=== PATIENT | male | born 1955 | race Caucasian/White ===

== ENCOUNTER 2016-08-22 19:32 | Inpatient (IN) | payer MEDICAID ==
[2016-08-22 19:32] VITALS: PULSE 140; BMI 26.8
[2016-08-22 20:42] LABS: BASO % 0.6 % (0.0-2.0); EOS # 0.1 K/uL (0.0-0.7); EOS % 1.7 % (0.0-4.0); HEMATOCRIT 31.4 % (35.0-51.0); LYMPH # 0.4 K/uL (1.0-4.3); LYMPH % 13.8 % (20.0-40.0); MEAN CELL VOLUME 92.7 fL (80.0-94.0); MEAN CORPUSCULAR HEMOGLOBIN 30.2 pg (27.0-31.0); MEAN CORPUSCULAR HGB CONC 32.6 g/dL (33.0-37.0); MEAN PLATELET VOLUME 9.1 fL (7.2-11.7); MONO # 0.4 K/uL (0.0-0.8); MONO % 13.3 % (0.0-10.0); RED CELL DISTRIBUTION WIDTH 17.2 % (11.5-14.5)
--- NOTE | 2016-08-22 20:47 | C.PDOC ---
History Of Present Illness 61 year old male presents to the ED with complaints of vomiting and feeling weak for the past few days. Patient notes he missed dialysis today and denies diarrhea, abdominal pain, or any other complaints at this time. Chief Complaint (Nursing): GI Problem History Per: Patient History/Exam Limitations: no limitations Onset/Duration Of Symptoms: Days Current Symptoms Are (Timing): Still Present Severity: Mild Past Medical History Reviewed: Historical Data, Nursing Documentation, Vital Signs Vital Signs: Last Vital Signs Temp 99.4 F 08/22/16 19:37 Pulse 97 H 08/22/16 19:37 Resp 20 08/22/16 19:37 BP 165/84 H 08/22/16 19:37 Pulse Ox 100 08/22/16 20:49 - Medical History PMH: Anemia, COPD, HTN, Hypercholesterolemia, Hyperlipidemia, Kidney Stones ( 1998), End Stage Renal Disease Surgical History: - [facility] Procedures DIALYSIS ARTERIOVENOSTOM (01/22/15) HEMODIALYSIS (01/30/15) INSERTION OF INFUSION DEV INTO SUP VENA CAVA, PERC APPROACH (11/12/15) PACKED CELL TRANSFUSION (11/05/14) PERFORMANCE OF URINARY FILTRATION, MULTIPLE (11/12/15) PERFORMANCE OF URINARY FILTRATION, SINGLE (02/29/16) ULTRASONOGRAPHY OF SUPERIOR VENA CAVA, GUIDANCE (11/12/15) VENOUS CATHETERIZATION FOR RENAL DIALYSIS (11/05/14) Family History: States: Unknown Family Hx - Social History Hx Tobacco Use: No (Quit years ago) Hx Alcohol Use: No Hx Substance Use: No - Immunization History Hx Tetanus Toxoid Vaccination: Yes Hx Influenza Vaccination: Yes Hx Pneumococcal Vaccination: Yes Review Of Systems Except As Marked, All Systems Reviewed And Found Negative. Constitutional: Negative for: Fever, Chills Cardiovascular: Negative for: Chest Pain Respiratory: Negative for: Cough, Shortness of Breath Gastrointestinal: Positive for: Vomiting. Negative for: Abdominal Pain, Diarrhea Physical Exam - Physical Exam Appears: Non-toxic, No Acute Distress Skin: Normal Color, Warm, Dry Head: Atraumatic, Normacephalic Eye(s): bilateral: Normal Inspection Oral Mucosa: Moist Chest: Symmetrical Cardiovascular: Rhythm Regular, No Murmur Respiratory: Normal Breath Sounds, No Accessory Muscle Use, No Rales, No Rhonchi , No Wheezing Gastrointestinal/Abdominal: Soft, No Tenderness, No Distention, No Guarding, No Rebound Extremity: Normal ROM, No Deformity Neurological/Psych: Oriented x3, Normal Speech, Normal Cognition, Other (No focal deficits) ED Course And Treatment - Laboratory Results Result Diagrams: 08/22/16 20:39 08/22/16 20:39 ECG: Interpreted By Me, Viewed By Me ECG Rhythm: Sinus Rhythm ECG Interpretation: No Acute Changes Interpretation Of ECG: NSR, possible LVH by voltage criteria Rate From EC O2 Sat by Pulse Oximetry: 100 (Room air) Pulse Ox Interpretation: Normal - Radiology CXR: Interpreted by Me CXR Interpretation: Yes: No Acute Disease. No: Infiltrates, Cardiomegaly Progress Note: EKG, CXR, and Blood work ordered and reviewed. Disposition Discussed With Dr.: Broderick Solis Doctor Will See Patient In The: Hospital Counseled Patient/Family Regarding: Diagnosis - Disposition Disposition: HOSPITALIZED Disposition Time: 21:22 Condition: STABLE Instructions: Weakness (ED) - POA Present On Arrival: None - Clinical Impression Clinical Impression: End-stage renal disease on hemodialysis, Weakness - Scribe Statement The provider has reviewed the documentation as recorded by the Scribe Judit Dominguez. Provider Attestation: All medical record entries made by the Scribe were at my direction and personally dictated by me. I have reviewed the chart and agree that the record accurately reflects my personal performance of the history, physical exam, medical decision making, and the department course for this patient. I have also personally directed, reviewed, and agree with the discharge instructions and disposition.
[2016-08-22 20:52] LABS: POTASSIUM 4.3 mmol/L (3.6-5.2)
[2016-08-22 20:54] LABS: ALB/GLOB RATIO 1.6 (1.0-2.1); BILIRUBIN,TOTAL 0.8 mg/dL (0.2-1.3); TOTAL PROTEIN 6.4 g/dL (6.3-8.3)
[2016-08-22 20:55] LABS: CALCIUM 8.7 mg/dl (8.6-10.4)
[2016-08-22 21:06] LABS: TROPONIN I 0.104 ng/mL (0.00-0.120)
[2016-08-22] MEDS ORDERED: cefTRIAXone IV 1 gm in Dextros 50 ML IVPB ONE (22:44)
--- NOTE | 2016-08-22 23:18 | CP.PCM.HP ---
<Mile Solorio - Last Filed: 08/22/16 23:42> History of Present Illness - History of Present Illness History of Present Illness: CC: "cough, weakness, dizziness" HPI: Pt is a 61M with medical history of ESRD on hemodialysis MWF, COPD, HTN, atrial fibrillation, HLD, BPH, flomax, pancytopenia who presented to the ED with persistent cough, dizziness and weakness for 3 days. He notes cough is worse at night and productive of yellow phlegm. He denies sick contacts and states he had pneumonia and flu vaccine. Patient started taking cough syrup and Azithromycin 500 mg po today prescribed by his primary care physician. He also states he had chills yesterday. Patient admits to mild shortness of breath but denies chest pain. 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 He denies nausea, vomiting, abdominal pain, diarrhea but admits to chronic constipation. PMD: Dr. Shashank Meraz PMH: as above Medications: Metoprolol 50 mg po BID, Atorvastatin 10 mg po daily, Cardizem Cd 240 mg po daily, ASA 325 mg po daily, Spiriva, Ventolin, Flomax 0.4 mg po daily , Colace 100 mg po TID Family History: mother - HTN, father - HTN Surgical Hx: kidney stone removal Social: former smoker of 27 years. Denies alcohol and illicit drug use. Present on Admission - Present on Admission Any Indicators Present on Admission: No History of DVT/PE: No History of Uncontrolled Diabetes: No Urinary Catheter: No Decubitus Ulcer Present: No Review of Systems - Constitutional Constitutional: Chills. absent: Fever - EENT Eyes: absent: Change in Vision Nose/Mouth/Throat: absent: Nasal Congestion, Nasal Discharge - Cardiovascular Cardiovascular: Dyspnea. absent: Chest Pain - Respiratory Respiratory: Cough, Dyspnea, Change in Mucous Color. absent: Wheezing - Gastrointestinal Gastrointestinal: Constipation. absent: Abdominal Pain, Diarrhea - Genitourinary Genitourinary: absent: Change in Urinary Stream - Integumentary Integumentary: absent: Changing Lesions, New Lesions - Neurological Neurological: Dizziness, Weakness. absent: Headaches Past Patient History - Infectious Disease Hx of Infectious Diseases: None - Past Medical History & Family History Past Medical History?: Yes - Past Social History Smoking Status: Former Smoker - CARDIAC Hx Hypercholesterolemia: Yes Hx Hypertension: Yes - PULMONARY Hx Chronic Obstructive Pulmonary Disease (COPD): Yes - NEUROLOGICAL Hx Neurological Disorder: No - HEENT Hx HEENT Problems: No Other/Comment: WEARS GLASSES - RENAL Hx Kidney Stones: Yes (1998) - ENDOCRINE/METABOLIC Hx Endocrine Disorders: No - HEMATOLOGICAL/ONCOLOGICAL Hx Anemia: Yes - INTEGUMENTARY Hx Dermatological Problems: No - MUSCULOSKELETAL/RHEUMATOLOGICAL Hx Musculoskeletal Disorders: No Hx Falls: No - GASTROINTESTINAL Hx Gastrointestinal Disorders: No - GENITOURINARY/GYNECOLOGICAL Hx Genitourinary Disorders: Yes Hx Prostate Problems: Yes - PSYCHIATRIC Hx Substance Use: No - SURGICAL HISTORY Hx Surgeries: Yes Hx Arteriovenous Shunt: Yes (right upper arm) Hx Vascular Access Device: Yes (right upper arm) Other/Comment: TURP - ANESTHESIA Hx Anesthesia: Yes Hx Anesthesia Reactions: No Hx Malignant Hyperthermia: No Meds Allergies/Adverse Reactions: Allergies Allergy/AdvReac Type Severity Reaction Status Date / Time No Known Allergies Allergy Verified 08/22/16 19:41 Physical Exam - Constitutional Appears: Non-toxic, No Acute Distress - Head Exam Head Exam: ATRAUMATIC, NORMAL INSPECTION, NORMOCEPHALIC - Eye Exam Eye Exam: EOMI, Normal appearance, PERRL - ENT Exam ENT Exam: Mucous Membranes Moist - Neck Exam Neck exam: Positive for: Full Rom, Normal Inspection - Respiratory Exam Respiratory Exam: Wheezes, NORMAL BREATHING PATTERN. absent: Rales, Rhonchi Additional comments: mild expiratory upper airway wheezes to auscultation - Cardiovascular Exam Cardiovascular Exam: +S1, +S2. absent: Tachycardia - GI/Abdominal Exam GI & Abdominal Exam: Normal Bowel Sounds, Soft - Extremities Exam Extremities exam: Positive for: normal inspection. Negative for: pedal edema, tenderness - Back Exam Back exam: NORMAL INSPECTION - Neurological Exam Neurological exam: Alert, CN II-XII Intact, Oriented x3 - Psychiatric Exam Psychiatric exam: Normal Affect, Normal Mood Results - Vital Signs Recent Vital Signs: Last Vital Signs Temp 98.5 F 08/22/16 22:17 Pulse 78 08/22/16 22:17 Resp 18 08/22/16 22:17 BP 148/75 08/22/16 22:17 Pulse Ox 98 08/22/16 22:17 - Labs Result Diagrams: 08/22/16 20:39 08/22/16 20:39 Assessment & Plan - Assessment and Plan (Free Text) Assessment: 1. Shortness of Breath likely secondary to COPD exacerbation Duoneb q6h PRN SOB Azithromycin 500 mg IVPB daily Rocephin 1 gm IVP stat dose given Robitussin DM 5 ml po q4H PRN cough CXR: no acute disease, cardiomegaly D-dimer 478 Observe overnight, VQ scan tomorrow to evaluate for PE Anticoagulation contraindicated due to pancytopenia f/u Echocardiogram Wells' Criteria -2 : low risk for DVT, unlikely 2. ESRD Potassium 4.3 BUN/CR 74/10.4 HD MWF - missed dialysis today For dialysis tomorrow Consult nephrology, Dr. Crawford, help appreciated 3. History of Atrial fibrillation Continued on home medications ASA 325 mg po daily and Diltiazem CD 240 mg po daily EKG: NSR Anticoagulation contraindicated due to pancytopenia - platelets of 37 Cardiology, Dr. Odessa Hawkins, consulted. Help appreciated. 4. Hypertension Continued on home medication Metoprolol 50 mg po BID Monitor 5. Hyperlipidemia Crestor 5 mg po HS 6. Pancytopenia WBC 3.0, platelets 37 Noted on previous admission 7. BPH Continue home medication flomax 0.4 mg po daily 8. Constipation Colace 100 mg po TID Miralax daily 9. Prophylaxis SCD Pepcid 20 mg po daily - Date & Time Date: 08/23/16 Time: 00:15 <Broderick Solis - Last Filed: 08/23/16 06:27> Results - Vital Signs Recent Vital Signs: Last Vital Signs Temp 97.3 F L 08/23/16 00:01 Pulse 88 08/23/16 00:01 Resp 20 08/23/16 00:01 BP 159/78 H 08/23/16 00:01 Pulse Ox 95 08/23/16 00:01 - Labs Result Diagrams: 08/22/16 20:39 08/22/16 20:39 Assessment & Plan - Date & Time Date: 08/23/16 (I have seen and examined the patient. I agree with the findings and plan of care as documented by Dr. Solorio. Patient with ESRD on hemodialysis. Patient missed dialysis due to feeling weak and unwell. Consult Nephro to set up dialysis in AM. Also with thrombocytopenia and history of atrial fibrillation. Only on Aspirin. Positive D dimer ordered by ED. Unable to obtrain CT angio due to renal function. Denies SOB and no tachycardia. Check VQ scan and 2D Echo. Monitor for acute changes.) Time: 06:24 Attending/Attestation - Attestation I have personally seen and examined this patient.: Yes I have fully participated in the care of the patient.: Yes I have reviewed all pertinent clinical information: Yes
[2016-08-23] MEDS: Albuterol-Ipratrop 3 mg / 0.5 (3 ml) UD INH PRN ×3 (00:51→19:54)
[2016-08-23] MEDS: guaiFENesin DM 100 mg-10 mg/5 ml UD PO PRN ×4 (01:30→18:50)
[2016-08-23 07:15] LABS: BASO % 0.4 % (0.0-2.0); CHLORIDE 92 mmol/L (98-107); EOS # 0.1 K/uL (0.0-0.7); EOS % 2.4 % (0.0-4.0); HEMATOCRIT 31.1 % (35.0-51.0); LYMPH # 0.4 K/uL (1.0-4.3); LYMPH % 17.4 % (20.0-40.0); MEAN CELL VOLUME 92.6 fL (80.0-94.0); MEAN CORPUSCULAR HGB CONC 33.4 g/dL (33.0-37.0); MEAN PLATELET VOLUME 10.9 fL (7.2-11.7); MONO # 0.4 K/uL (0.0-0.8); MONO % 15.6 % (0.0-10.0); NRBC % 0.1 % (0.0-2.0); POTASSIUM 4.2 mmol/L (3.6-5.2); RED CELL DISTRIBUTION WIDTH 17.4 % (11.5-14.5); SODIUM 133 mmol/L (132-148); WHITE BLOOD COUNT 2.5 K/uL (4.8-10.8)
[2016-08-23 07:17] LABS: ALB/GLOB RATIO 1.6 (1.0-2.1); ALKALINE PHOSPHATASE 42 U/L (38-126); ALT/SGPT 35 U/L (21-72); AST/SGOT 32 U/L (17-59); BILIRUBIN,TOTAL 0.8 mg/dL (0.2-1.3); BLOOD UREA NITROGEN 81 mg/dL (9-20); CARBON DIOXIDE 23 mmol/L (22-30); CHOLESTEROL 78 mg/dL (0-199); GFR AFRICAN-AMERICAN 5; GLUCOSE,RANDOM 99 mg/dL (75-110); PHOSPHOROUS 5.1 mg/dL (2.5-4.5); TOTAL PROTEIN 6.1 g/dL (6.3-8.3)
[2016-08-23 07:18] LABS: CALCIUM 8.1 mg/dl (8.6-10.4); MAGNESIUM 2.4 mg/dL (1.6-2.3)
[2016-08-23 07:35] LABS: T4 6.33 ug/dL (5.5-11.0)
[2016-08-23 07:48] LABS: THYROID STIMULATING HORMONE 1.13 mIU/L (0.46-4.68)
--- NOTE | 2016-08-23 08:12 | RAD ---
PROCEDURE: CHEST RADIOGRAPH, 1 VIEW HISTORY: SOB COMPARISON: 02/29/2016 FINDINGS: LUNGS: Linear atelectasis in the right midlung zone. 2 small rounded nodular densities seen within the right mid lung zone may represent nodules or granulomas. Upper lobe granulomatous changes. Bilateral paratracheal prominence which may represent productive change at the ends of the 1st ribs. Mild bilateral hilar prominence. Mild venous congestion. PLEURA: No pneumothorax or pleural fluid seen. CARDIOVASCULAR: Normal. OSSEOUS STRUCTURES: No significant abnormalities. VISUALIZED UPPER ABDOMEN: Normal. OTHER FINDINGS: None. IMPRESSION: Linear atelectasis in the right midlung zone. 2 small rounded nodular densities seen within the right mid lung zone may represent nodules or granulomas. Upper lobe granulomatous changes. Bilateral paratracheal prominence which may represent productive change at the ends of the 1st ribs. Mild bilateral hilar prominence. Mild venous congestion.
[2016-08-23] MEDS: diltiaZEM 240 mg/24 Hours CD Cap PO SCH (09:33)
[2016-08-23] MEDS: Azithromycin 500 MG in Sodium Chloride 0.9% 250 ML IVPB SCH (09:34)
[2016-08-23] MEDS: POLYETHYLENE GLYCOL 3350 17 GM/Dose PACKET PO SCH (09:34)
--- NOTE | 2016-08-23 10:40 | NM ---
COMPARISON: August 22, 2016. Chest 11/13/2015 CT angiogram Relevant surgical history: Right upper lobectomy. TECHNIQUE: 12.6 mCi technetium 99-m Xe-133 Gas. 4.0 mCI technetium 99-m MAA administered intravenously. FINDINGS: VENTILATION COMPONENT: Asymmetrical ventilation, diminished ventilation of the left lung compared to the right. There is air trapping in the right upper lobe on the washout phase consistent with postoperative change. PERFUSION COMPONENT: Non geographic diminished perfusion along the major fissure on the right and subsegmental perfusion defect tracking along the major fissure/ site of pleural thickening and postoperative change from prior CT scan. IMPRESSION: Low probability ventilation perfusion scan for pulmonary embolism.
--- NOTE | 2016-08-23 11:57 | CP.PCM.PN ---
<ThaniaRemberto - Last Filed: 08/23/16 11:58> Subjective - Date & Time of Evaluation Date of Evaluation: 08/23/16 Time of Evaluation: 11:57 - Subjective Subjective: PGY-1 Medicine Progress Note for Dr. Olsen Patient seen and examined at bedside. No acute event overnight. Patient complaining of cough today. He stated weakness and dizziness has improved. Patient missed dialysis yesterday so he will go this morning. Denied fever/ chills, cp, sob, palpitations, abd pain, n/v/d, constipation. Objective - Vital Signs/Intake and Output Vital Signs (last 24 hours): Temp Pulse Resp BP Pulse Ox 98.1 F 87 22 143/75 95 08/23/16 09:25 08/23/16 09:25 08/23/16 09:25 08/23/16 11:25 08/23/16 09:25 Intake and Output: 08/23/16 08/23/16 06:59 18:59 Intake Total 300 Balance 300 - Medications Medications: Current Medications Albuterol/Ipratropium (Duoneb 3 Mg/0.5 Mg (3 Ml) Ud) 3 ml INH RQ6 PRN PRN Reason: Shortness of Breath Last Admin: 08/23/16 07:53 Dose: 3 ml Aspirin (Aspirin) 325 mg PO DAILY [facility] Last Admin: 08/23/16 09:33 Dose: Not Given Cinacalcet (Sensipar) 30 mg PO DAILY [facility] Last Admin: 08/23/16 09:34 Dose: Not Given Diltiazem HCl (Cardizem Cd) 240 mg PO DAILY [facility] Last Admin: 08/23/16 09:33 Dose: Not Given Docusate Sodium (Colace) 100 mg PO TID [facility] Last Admin: 08/23/16 09:33 Dose: Not Given Famotidine (Pepcid) 20 mg PO DAILY [facility] Last Admin: 08/23/16 09:34 Dose: Not Given Guaifenesin/Dextromethorphan (Robitussin Dm) 5 ml PO Q4H PRN PRN Reason: Cough Last Admin: 08/23/16 09:10 Dose: 5 ml Azithromycin 500 mg/ Sodium (Chloride) 250 mls @ 250 mls/hr IVPB DAILY [facility] Last Admin: 08/23/16 09:34 Dose: Not Given Metoprolol Tartrate (Lopressor) 50 mg PO BID [facility] Last Admin: 08/23/16 09:33 Dose: Not Given Polyethylene Glycol (Miralax) 17 gm PO DAILY [facility] Last Admin: 08/23/16 09:34 Dose: Not Given Rosuvastatin Calcium (Crestor) 5 mg PO HS [facility] Tamsulosin HCl (Flomax) 0.4 mg PO DAILY [facility] Last Admin: 08/23/16 09:33 Dose: Not Given - Labs Labs: 08/23/16 06:59 08/23/16 06:59 - Constitutional Appears: No Acute Distress - Head Exam Head Exam: ATRAUMATIC, NORMOCEPHALIC - Eye Exam Eye Exam: EOMI, Normal appearance Pupil Exam: PERRL - ENT Exam ENT Exam: Mucous Membranes Moist - Respiratory Exam Respiratory Exam: Wheezes, NORMAL BREATHING PATTERN - Cardiovascular Exam Cardiovascular Exam: REGULAR RHYTHM, +S1, +S2 - GI/Abdominal Exam GI & Abdominal Exam: Soft, Normal Bowel Sounds. absent: Distended, Guarding, Rigid, Tenderness - Extremities Exam Extremities Exam: Normal Capillary Refill - Back Exam Back Exam: absent: CVA tenderness (L), CVA tenderness (R) - Neurological Exam Neurological Exam: Alert, Awake, Oriented x3 - Psychiatric Exam Psychiatric exam: Normal Affect, Normal Mood - Skin Skin Exam: Dry, Intact, Normal Color, Warm Assessment and Plan - Assessment and Plan (Free Text) Plan: 1. Shortness of Breath likely secondary to COPD exacerbation Duoneb q6h PRN SOB Azithromycin 500 mg IVPB daily Rocephin 1 gm IVP stat dose given Robitussin DM 5 ml po q4H PRN cough CXR: no acute disease, cardiomegaly D-dimer 478 VQ scan low probability of PE Anticoagulation contraindicated due to pancytopenia f/u Echocardiogram Wells' Criteria -2 : low risk for DVT, unlikely 2. ESRD Potassium 4.2 BUN/CR 81/11.7 HD MWF - missed yesterday, dialysis For dialysis tomorrow Consult nephrology, Dr. Crawford, help appreciated 3. History of Atrial fibrillation Continued on home medications ASA 325 mg po daily and Diltiazem CD 240 mg po daily EKG: NSR Anticoagulation contraindicated due to pancytopenia Cardiology, Dr. Odessa Hawkins, consulted. Help appreciated. 4. Hypertension Continued on home medication Metoprolol 50 mg po BID Monitor 5. Hyperlipidemia Crestor 5 mg po HS 6. Pancytopenia WBC 2.5, platelets 43 Noted on previous admission 7. BPH Continue home medication flomax 0.4 mg po daily 8. Constipation Colace 100 mg po TID Miralax daily 9. Prophylaxis SCD Pepcid 20 mg po daily <Bert Olsen H - Last Filed: 08/23/16 15:52> Objective - Vital Signs/Intake and Output Vital Signs (last 24 hours): Temp Pulse Resp BP Pulse Ox 97.4 F L 73 22 143/75 100 08/23/16 13:10 08/23/16 13:10 08/23/16 13:10 08/23/16 15:12 08/23/16 13:10 Intake and Output: 08/23/16 08/23/16 06:59 18:59 Intake Total 500 Balance 500 - Medications Medications: Current Medications Albuterol/Ipratropium (Duoneb 3 Mg/0.5 Mg (3 Ml) Ud) 3 ml INH RQ6 PRN PRN Reason: Shortness of Breath Last Admin: 08/23/16 07:53 Dose: 3 ml Aspirin (Aspirin) 325 mg PO DAILY [facility] Last Admin: 08/23/16 09:33 Dose: Not Given Cinacalcet (Sensipar) 30 mg PO DAILY [facility] Last Admin: 08/23/16 09:34 Dose: Not Given Diltiazem HCl (Cardizem Cd) 240 mg PO DAILY [facility] Last Admin: 08/23/16 09:33 Dose: Not Given Docusate Sodium (Colace) 100 mg PO TID [facility] Last Admin: 08/23/16 14:47 Dose: 100 mg Famotidine (Pepcid) 20 mg PO DAILY [facility] Last Admin: 08/23/16 09:34 Dose: Not Given Guaifenesin/Dextromethorphan (Robitussin Dm) 5 ml PO Q4H PRN PRN Reason: Cough Last Admin: 08/23/16 14:48 Dose: 5 ml Azithromycin 500 mg/ Sodium (Chloride) 250 mls @ 250 mls/hr IVPB DAILY [facility] Last Admin: 08/23/16 09:34 Dose: Not Given Metoprolol Tartrate (Lopressor) 50 mg PO BID [facility] Last Admin: 08/23/16 09:33 Dose: Not Given Polyethylene Glycol (Miralax) 17 gm PO DAILY [facility] Last Admin: 08/23/16 09:34 Dose: Not Given Rosuvastatin Calcium (Crestor) 5 mg PO HS [facility] Tamsulosin HCl (Flomax) 0.4 mg PO DAILY [facility] Last Admin: 08/23/16 09:33 Dose: Not Given - Labs Labs: 08/23/16 06:59 08/23/16 06:59 Attending/Attestation - Attestation I have personally seen and examined this patient.: Yes I have fully participated in the care of the patient.: Yes I have reviewed all pertinent clinical information, including history, physical exam and plan: Yes Notes (Text): 08/23/16 15:50 Medical Attending: Patient was seen and examined by me. He was ealier reporting coughing and shortness of breath. This maybe a combination of COPD as well as the patient needing HD. Will continue to monitor the patient, and for now continue with the IV abx rocpephin and IV azithromycin thank you Bert Olsen 08/23/16 15:52
--- NOTE | 2016-08-23 16:45 | CON ---
DATE: 08/23/2016 CARDIOLOGY CONSULTATION HISTORY OF PRESENT ILLNESS: This is a 61-year-old ____ male, came to the Emergency Room with history of generalized fatigue, weakness, and cough. The patient denies having any fever. The patient comp lained of dizziness. Denies having any chest pain. The patient has mild shortness of breath. The p atient has cold symptoms. No history of nausea, vomiting, or abdominal pain. CENTRAL NERVOUS SYSTEM: No focal neurological complaints offered. MEDICATIONS: The patient was seen by PMD in the office and was started on azithromycin. The patient missed dialysis, so came to the Emergency Room. REVIEW OF SYSTEMS: CARDIOVASCULAR: Negative for chest pain. RESPIRATORY: Positive for shortness of breath and cough. GASTROINTESTINAL: Negative for nausea, vomiting, abdominal pain. CENTRAL NERVOUS SYSTEM: Dizziness. No focal neurological complaints. No fever. GENITOURINARY: No urinary complaints. PAST HISTORY: History of COPD, hypertension, atrial fibrillation, elevated cholesterol, BPH, pancyto penia, chronic renal failure on hemodialysis. FAMILY HISTORY: Nothing particular. SOCIAL HISTORY: Nonsmoker, nonalcoholic, no IVDA. ALLERGIES: No known allergy. MEDICATIONS: The patient's medications are metoprolol, atorvastatin, aspirin, Cardizem, Spiriva, Pete tolin, Flomax, Colace. PHYSICAL EXAMINATION: GENERAL: This is a 61-year-old male, awake, alert, oriented, comfortable. VITAL SIGNS: Temperature 98.6, pulse 78 per minute, respirations 18, blood pressure 148/75 mmHg. Pu lse ox is 98% at room air. HEENT: Normal. NECK: JVP is flat. Carotids - no bruit. LUNGS: No rales. Wheezing is present. No rhonchi present. ABDOMEN: Soft, nontender. CENTRAL NERVOUS SYSTEM: No focal neurological deficit. LABORATORY DATA: On admission, white cell count is reduced. Thrombocytopenia present. Elevated BUN and creatinine. Blood sugar is 86. Chest x-ray is within normal limits. EKG is normal sinus rhythm. D-dimer is elevated. IMPRESSION: Shortness of breath with cough and fatigue. Rule out flu symptoms. End-stage renal dis ease. History of atrial fibrillation, hypertension, hyperlipidemia, pancytopenia, benign prostatic h ypertrophy, constipation. SUGGESTIONS: I agree with present management. We will continue all the medications. We will review echocardiogram. The patient's troponin is negative. No further medication advised. We will follow . Lizbeth Hawkins MD cc: [id number] TT: 08/23/2016 16:44:38 Confirmation # [id number] Dictation # [id number]
[2016-08-24] MEDS: guaiFENesin DM 100 mg-10 mg/5 ml UD PO PRN (03:07)
[2016-08-24 08:10] LABS: BASO % 0.6 % (0.0-2.0); HEMATOCRIT 33.1 % (35.0-51.0); LYMPH # 0.5 K/uL (1.0-4.3); MEAN CELL VOLUME 91.8 fL (80.0-94.0); MEAN CORPUSCULAR HEMOGLOBIN 30.7 pg (27.0-31.0); MEAN CORPUSCULAR HGB CONC 33.5 g/dL (33.0-37.0); MEAN PLATELET VOLUME 9.6 fL (7.2-11.7); MONO # 0.4 K/uL (0.0-0.8); MONO % 15.7 % (0.0-10.0); RED CELL DISTRIBUTION WIDTH 17.2 % (11.5-14.5); WHITE BLOOD COUNT 2.3 K/uL (4.8-10.8)
--- NOTE | 2016-08-24 08:13 | CP.PCM.CON ---
History of Present Illness - History of Present Illness History of Present Illness: HPI: Pt is a 61M with medical history of ESRD on hemodialysis MWF, COPD, HTN, atrial fibrillation, HLD, BPH, flomax, pancytopenia who presented to the ED with persistent cough, dizziness and weakness for 3 days. He notes cough is worse at night and productive of yellow phlegm. He denies sick contacts and states he had pneumonia and flu vaccine. Patient started taking cough syrup and Azithromycin 500 mg po today prescribed by his primary care physician. He also states he had chills yesterday. Patient admits to mild shortness of breath but denies chest pain. Patient missed dialysis today and states he has not followed up with his director of midwifery/staff midwife in some time. He denies nausea, vomiting, abdominal pain, diarrhea but admits to chronic constipation. Pt has been on HD for about a year and a half. He generally misses at least one treatment a week, as he feels tired with HD. He uses a left KIMBERLY for treatment. Pt also feels lightheaded on standing Pt received HD yesterday with 3.5 kg uf. Pt asked about different modalities of dialysis and transplantation. Review of Systems - Constitutional Constitutional: Fatigue. absent: Fever - EENT Eyes: absent: Blurred Vision, Change in Vision Nose/Mouth/Throat: absent: Epistaxis, Nasal Congestion - Cardiovascular Cardiovascular: Palpitations. absent: Chest Pain - Respiratory Respiratory: Cough, Chest Congestion - Gastrointestinal Gastrointestinal: absent: Constipation, Cramping - Genitourinary Genitourinary: absent: Change in Urinary Stream, Difficulty Urinating - Musculoskeletal Musculoskeletal: absent: Abnormal Gait, Arthralgias - Integumentary Integumentary: absent: Bleeding Lesions, Non-Healing Lesions - Neurological Neurological: absent: Abnormal Gait, Abnormal Hearing - Psychiatric Psychiatric: absent: Behavioral Changes, Change in Appetite - Hematologic/Lymphatic Hematologic: absent: Easy Bleeding, Easy Bruising Past Patient History - Infectious Disease Hx of Infectious Diseases: None - Past Medical History & Family History Past Medical History?: Yes - Past Social History Smoking Status: Former Smoker - CARDIAC Hx Cardiac Disorders: Yes (AFIB) Hx Atrial Fibrillation: Yes Hx Hypercholesterolemia: Yes Hx Hypertension: Yes - PULMONARY Hx Chronic Obstructive Pulmonary Disease (COPD): Yes - NEUROLOGICAL Hx Neurological Disorder: No - HEENT Hx HEENT Problems: No Other/Comment: WEARS GLASSES - RENAL Hx Chronic Kidney Disease: Yes Hx Dialysis: Yes Type of Dialysis Access: KIMBERLY Hx Kidney Stones: Yes (1998) - ENDOCRINE/METABOLIC Hx Endocrine Disorders: No - HEMATOLOGICAL/ONCOLOGICAL Hx Blood Disorders: Yes Hx Anemia: Yes - INTEGUMENTARY Hx Dermatological Problems: No - MUSCULOSKELETAL/RHEUMATOLOGICAL Hx Musculoskeletal Disorders: No Hx Falls: No - GASTROINTESTINAL Hx Gastrointestinal Disorders: No - GENITOURINARY/GYNECOLOGICAL Hx Genitourinary Disorders: Yes Hx Prostate Problems: Yes - PSYCHIATRIC Hx Substance Use: No - SURGICAL HISTORY Hx Surgeries: Yes Hx Arteriovenous Shunt: Yes (right upper arm) Hx Vascular Access Device: Yes (right upper arm) Other/Comment: TURP - ANESTHESIA Hx Anesthesia: Yes Hx Anesthesia Reactions: No Hx Malignant Hyperthermia: No Meds Allergies/Adverse Reactions: Allergies Allergy/AdvReac Type Severity Reaction Status Date / Time No Known Allergies Allergy Verified 08/22/16 19:41 - Medications Medications: Current Medications Albuterol/Ipratropium (Duoneb 3 Mg/0.5 Mg (3 Ml) Ud) 3 ml INH RQ6 PRN PRN Reason: Shortness of Breath Last Admin: 08/23/16 19:54 Dose: 3 ml Aspirin (Aspirin) 325 mg PO DAILY [facility] Last Admin: 08/23/16 09:33 Dose: Not Given Cinacalcet (Sensipar) 30 mg PO DAILY [facility] Last Admin: 08/23/16 09:34 Dose: Not Given Diltiazem HCl (Cardizem Cd) 240 mg PO DAILY [facility] Last Admin: 08/23/16 09:33 Dose: Not Given Docusate Sodium (Colace) 100 mg PO TID [facility] Last Admin: 08/23/16 17:15 Dose: 100 mg Famotidine (Pepcid) 20 mg PO DAILY [facility] Last Admin: 08/23/16 09:34 Dose: Not Given Guaifenesin/Dextromethorphan (Robitussin Dm) 5 ml PO Q4H PRN PRN Reason: Cough Last Admin: 08/24/16 03:07 Dose: 5 ml Azithromycin 500 mg/ Sodium (Chloride) 250 mls @ 250 mls/hr IVPB DAILY [facility] Last Admin: 08/23/16 09:34 Dose: Not Given Metoprolol Tartrate (Lopressor) 50 mg PO BID [facility] Last Admin: 08/23/16 17:15 Dose: 50 mg Polyethylene Glycol (Miralax) 17 gm PO DAILY [facility] Last Admin: 08/23/16 09:34 Dose: Not Given Rosuvastatin Calcium (Crestor) 5 mg PO HS [facility] Last Admin: 08/23/16 21:40 Dose: 5 mg Tamsulosin HCl (Flomax) 0.4 mg PO DAILY [facility] Last Admin: 08/23/16 09:33 Dose: Not Given Physical Exam - Constitutional Appears: Non-toxic - Eye Exam Eye Exam: EOMI, Normal appearance - ENT Exam ENT Exam: Mucous Membranes Moist, Normal Oropharynx - Neck Exam Neck exam: Positive for: Full Rom. Negative for: Lymphadenopathy - Respiratory Exam Respiratory Exam: Rhonchi. absent: Accessory Muscle Use - Cardiovascular Exam Cardiovascular Exam: Irregular Rhythm. absent: Tachycardia - GI/Abdominal Exam GI & Abdominal Exam: Distended, Normal Bowel Sounds, Soft - Extremities Exam Extremities exam: Positive for: full ROM. Negative for: pedal edema - Skin Skin Exam: Intact, Normal Color Results - Vital Signs Recent Vital Signs: Last Vital Signs Temp 98.7 F 08/24/16 07:53 Pulse 72 08/24/16 07:53 Resp 20 08/24/16 07:53 BP 165/84 H 08/24/16 07:53 Pulse Ox 100 08/24/16 07:53 - Labs Result Diagrams: 08/23/16 06:59 08/23/16 06:59 Assessment & Plan - Assessment and Plan (Free Text) Assessment: esrd, noncompliant with HD repeat HD today as per schedule discussed home dialysis and transplant options discussed compliance with treatment check phosphorus copd, pulmonary toilet and AB pancytopenia, suggest Heme f/u,if not done
--- NOTE | 2016-08-24 08:16 | CP.PCM.PN ---
<Renea Christine - Last Filed: 08/24/16 14:21> Subjective - Date & Time of Evaluation Date of Evaluation: 08/24/16 Time of Evaluation: 07:00 - Subjective Subjective: Internal medicine progress note for Dr. Landry- Renea Christine, PGY-1 Pt S & E at bedside. Pt reports improvement in weakness, dizziness. Still complaining of cough, but improved. Requesting something to loosen up mucus. Denies N/V/F/C, SOB, CP, abdominal pain. Pt reports he only believes he needs to do dialysis Monday and Mon- reinforced importance of compliance with M/W/F schedule. States he [place] go to [place] get kidney transplant. Objective - Vital Signs/Intake and Output Vital Signs (last 24 hours): Temp Pulse Resp BP Pulse Ox 98.7 F 72 20 165/84 H 100 08/24/16 07:53 08/24/16 07:53 08/24/16 07:53 08/24/16 07:53 08/24/16 07:53 Intake and Output: 08/24/16 08/24/16 06:59 18:59 Intake Total 200 Balance 200 - Medications Medications: Current Medications Albuterol/Ipratropium (Duoneb 3 Mg/0.5 Mg (3 Ml) Ud) 3 ml INH RQ6 PRN PRN Reason: Shortness of Breath Last Admin: 08/23/16 19:54 Dose: 3 ml Aspirin (Aspirin) 325 mg PO DAILY [facility] Last Admin: 08/23/16 09:33 Dose: Not Given Cinacalcet (Sensipar) 30 mg PO DAILY [facility] Last Admin: 08/23/16 09:34 Dose: Not Given Diltiazem HCl (Cardizem Cd) 240 mg PO DAILY [facility] Last Admin: 08/23/16 09:33 Dose: Not Given Docusate Sodium (Colace) 100 mg PO TID [facility] Last Admin: 08/23/16 17:15 Dose: 100 mg Famotidine (Pepcid) 20 mg PO DAILY [facility] Last Admin: 08/23/16 09:34 Dose: Not Given Guaifenesin/Dextromethorphan (Robitussin Dm) 5 ml PO Q4H PRN PRN Reason: Cough Last Admin: 08/24/16 03:07 Dose: 5 ml Azithromycin 500 mg/ Sodium (Chloride) 250 mls @ 250 mls/hr IVPB DAILY [facility] Last Admin: 08/23/16 09:34 Dose: Not Given Metoprolol Tartrate (Lopressor) 50 mg PO BID [facility] Last Admin: 08/23/16 17:15 Dose: 50 mg Polyethylene Glycol (Miralax) 17 gm PO DAILY [facility] Last Admin: 08/23/16 09:34 Dose: Not Given Rosuvastatin Calcium (Crestor) 5 mg PO HS [facility] Last Admin: 08/23/16 21:40 Dose: 5 mg Tamsulosin HCl (Flomax) 0.4 mg PO DAILY [facility] Last Admin: 08/23/16 09:33 Dose: Not Given - Labs Labs: 08/24/16 08:03 08/23/16 06:59 - Constitutional Appears: Non-toxic, No Acute Distress - Head Exam Head Exam: ATRAUMATIC, NORMAL INSPECTION, NORMOCEPHALIC - Eye Exam Eye Exam: EOMI, Normal appearance Pupil Exam: NORMAL ACCOMODATION, PERRL - ENT Exam ENT Exam: Mucous Membranes Moist, Normal Exam - Neck Exam Neck Exam: Full ROM, Normal Inspection - Respiratory Exam Respiratory Exam: Clear to Ausculation Bilateral, NORMAL BREATHING PATTERN - Cardiovascular Exam Cardiovascular Exam: REGULAR RHYTHM, +S1, +S2 - GI/Abdominal Exam GI & Abdominal Exam: Soft, Normal Bowel Sounds. absent: Bruit, Distended (obese ), Firm, Guarding, Rigid, Tenderness - Extremities Exam Extremities Exam: Full ROM, Normal Inspection. absent: Pedal Edema, Tenderness - Back Exam Back Exam: NORMAL INSPECTION. absent: CVA tenderness (L), CVA tenderness (R) - Neurological Exam Neurological Exam: Alert, Awake, CN II-XII Intact, Oriented x3 - Psychiatric Exam Psychiatric exam: Normal Affect, Normal Mood - Skin Skin Exam: Dry, Intact, Normal Color, Warm Assessment and Plan - Assessment and Plan (Free Text) Assessment: 1. Shortness of Breath likely secondary to COPD exacerbation Duoneb q6h PRN SOB Azithromycin 500 mg IVPB daily changed to PO x 5 days Rocephin 1 gm IVP stat dose given Robitussin DM 5 ml po q4H PRN cough CXR: no acute disease, cardiomegaly D-dimer 478 VQ scan low probability of PE Anticoagulation contraindicated due to pancytopenia FU Echo Wells' Criteria -2 : low risk for DVT, unlikely FU Legionella FU Mycoplasma 2. ESRD Potassium 3.9 BUN/CR 48/8.1 HD MWF FU nephro 3. History of Atrial fibrillation Continued on home medications ASA 325 mg po daily and Diltiazem CD 240 mg po daily EKG: NSR HASBLED score = 3; correlates with 5.8% risk of major bleed- contraindication for anticoagulation NADIRA score = 1 FU cardio consult 4. Hypertension BP 165/84 Continued on home medication Metoprolol 50 mg po BID Monitor 5. Hyperlipidemia Crestor 5 mg po HS Lipid panel: TG 162, Chol 178, LDL <30, HDL 27 6. Pancytopenia WBC 2.3, platelets 41 Appears to be chronic Noted on previous admission FU HIV FU Hep panel FU HIT panel Consulted Heme/Onc 7. BPH Continue home medication flomax 0.4 mg po daily 8. Constipation Colace 100 mg po TID Miralax daily 9. Prophylaxis SCD Pepcid 20 mg po daily Contraindications for VTC ppx 10. Dispo Awaiting consult recs For dialysis today FU CXR after dialysis SW consult for FLO placement once stabilized DW attending <Dena Landry V - Last Filed: 08/25/16 10:18> Objective - Vital Signs/Intake and Output Vital Signs (last 24 hours): Temp Pulse Resp BP Pulse Ox 98.8 F 76 20 135/66 99 08/25/16 08:15 08/25/16 08:15 08/25/16 08:15 08/25/16 08:15 08/25/16 08:15 - Medications Medications: Current Medications Albuterol/Ipratropium (Duoneb 3 Mg/0.5 Mg (3 Ml) Ud) 3 ml INH RQ4 [facility] Last Admin: 08/25/16 07:40 Dose: 3 ml Azithromycin (Zithromax) 500 mg PO DAILY [facility] Stop: 08/29/16 14:31 Last Admin: 08/24/16 14:55 Dose: 500 mg Cinacalcet (Sensipar) 30 mg PO DAILY [facility] Last Admin: 08/24/16 12:34 Dose: 30 mg Diltiazem HCl (Cardizem Cd) 240 mg PO DAILY [facility] Last Admin: 08/24/16 12:36 Dose: 240 mg Docusate Sodium (Colace) 100 mg PO TID [facility] Last Admin: 08/24/16 17:13 Dose: 100 mg Guaifenesin (Mucinex La) 600 mg PO BID [facility] Last Admin: 08/24/16 17:13 Dose: 600 mg Metoprolol Tartrate (Lopressor) 50 mg PO BID [facility] Last Admin: 08/24/16 17:14 Dose: 50 mg Polyethylene Glycol (Miralax) 17 gm PO DAILY [facility] Last Admin: 08/24/16 12:36 Dose: 17 gm Promethazine HCl/Codeine (Phenergan/Codeine Oral Syrup) 5 ml PO Q4 PRN PRN Reason: Cough Last Admin: 08/24/16 21:25 Dose: 5 ml Rosuvastatin Calcium (Crestor) 5 mg PO HS [facility] Last Admin: 08/24/16 21:24 Dose: 5 mg Tamsulosin HCl (Flomax) 0.4 mg PO DAILY [facility] Last Admin: 08/24/16 12:34 Dose: 0.4 mg - Labs Labs: 08/25/16 06:45 08/25/16 06:45 Attending/Attestation - Attestation I have personally seen and examined this patient.: Yes I have fully participated in the care of the patient.: Yes I have reviewed all pertinent clinical information, including history, physical exam and plan: Yes Notes (Text): This is late computer entry for 08/24/16. Patient seen, examined, and case discussed with day-time resident. Patient seen during his dialysis session. Patient reporting strong cough, heard at bedside. Patient is noncompliant on his dialysis he states he feels better after 2 sessions weekly than his 3 sessions recommended. Patient makes urine. Patient reports he is awaiting a kidney transplant? [place]. Patient is noted history of non-compliance per review of his EMR. Assessment/Plan 1. Shortness of Breath Etiologies: multifactorial: noncompliance of dialysis leading fluid over load state, possible pneumonia, possible COPD exacerbation; atrial fib is rate controlled Patient is reporting cough Duoneb q4h PRN SOB Azithromycin 500 mg IVPB daily changed to PO x 5 days given pain secondary to peripheral IV access Rocephin 1 gm IVP stat dose given on admission Robitussin DM 5 ml po q4H PRN cough changed to Phenergan w codeine 5ml POQ 4hour PRN Ordered for repeat chest xray post-dialysis today D-dimer 478 VQ scan low probability of PE Anticoagulation contraindicated due to pancytopenia FU Echo pending at time of evaluation Wells' Criteria -2 : low risk for DVT, unlikely FU Legionella FU Mycoplasma FU Strep 2. ESRD Potassium 3.9 BUN/CR 48/8.1 HD MWF Nephrology (Dr. Rizzo/Codey) on board Patient currently receiving dialysis at bedside 3. History of Atrial fibrillation Held ASA 325 mg po daily given thrombocytopenia and Diltiazem CD 240 mg po daily and Lopressor 50mg PO bid EKG: NSR HASBLED score = 3; correlates with 5.8% risk of major bleed- contraindication for anticoagulation NADIRA score = 1 Cardiology (Dr. Arias) on board Pending echocardiogram 4. Hypertension BP 165/84 Continued on home medication Metoprolol 50 mg po BID and Cardizem CD 240mg PO daily Patient is receiving dialysis at bedside Monitor 5. Hyperlipidemia Crestor 5 mg po HS Lipid panel: TG 162, Chol 178, LDL <30, HDL 27 6. Pancytopenia WBC 2.3, platelets 41 Appears to be chronic; but etiology unclear Noted on previous admission FU HIV FU Hep panel FU HIT panel Heme-onc (Dr. Tony Brantley) consulted-->pending recommendations 7. BPH Continue home medication flomax 0.4 mg po daily 8. Constipation Colace 100 mg po TID Miralax daily 9. Prophylaxis SCD held Pepcid 20 mg po daily secondary to thrombcytopenia Aspiring held secondary to thrombocytopenia Contraindications for VTC ppx 10. Dispo Awaiting consult recs For dialysis today FU CXR after dialysis SW consult for FLO placement once stabilized
[2016-08-24 08:28] LABS: POTASSIUM 3.9 mmol/L (3.6-5.2)
[2016-08-24 08:30] LABS: ALB/GLOB RATIO 1.4 (1.0-2.1); TOTAL PROTEIN 6.5 g/dL (6.3-8.3)
[2016-08-24 08:31] LABS: CALCIUM 8.5 mg/dl (8.6-10.4); MAGNESIUM 2.2 mg/dL (1.6-2.3); PHOSPHOROUS 4.6 mg/dL (2.5-4.5)
--- NOTE | 2016-08-24 09:48 | VASCLAB ---
PROCEDURE: Lower Extremity Venous Duplex Exam. HISTORY: edema PRIORS: None. TECHNIQUE: Bilateral common femoral, femoral, popliteal and posterior tibial, peroneal and great saphenous veins were evaluated. Flow was assessed with color Doppler, compressibility, assessment of phasic flow and augmentation response. Report prepared by cardiovascular or nurse. FINDINGS: RIGHT: 1. Common Femoral Vein: 1.1. Compressibility - Fully compressible: Thrombus - None : Flow - Phasic: Augmentation -Normal: Reflux - None. 2. Femoral Vein: 2.1. Compressibility - Fully compressible: Thrombus - None : Flow - Phasic: Augmentation -Normal: Reflux - None. 3. Popliteal Vein: 3.1. Compressibility - Fully compressible: Thrombus - None : Flow - Phasic: Augmentation -Normal: Reflux - None. 4. Posterior Tibial Vein: 4.1. Compressibility - Fully compressible: Thrombus - None: Flow - Phasic: Augmentation -Normal: Reflux - None. 5. Peroneal Vein: 5.1. Compressibility - Fully compressible: Thrombus - None: Flow - Phasic: Augmentation -Normal: Reflux - None. 6. Great Saphenous Vein: 6.1. Compressibility - Fully compressible: Thrombus - None: Flow - Phasic: Augmentation - Normal: Reflux - None. LEFT: 1. Common Femoral Vein: 1.1. Compressibility - Fully compressible: Thrombus - None: Flow - Phasic: Augmentation -Normal: Reflux - None. 2. Femoral Vein: 2.1. Compressibility - Fully compressible: Thrombus - None: Flow - Phasic: Augmentation -Normal: Reflux - None. 3. Popliteal Vein: 3.1. Compressibility - Fully compressible: Thrombus - None : Flow - Phasic: Augmentation -Normal: Reflux - None. 4. Posterior Tibial Vein: 4.1. Compressibility - Fully compressible: Thrombus - None: Flow - Phasic: Augmentation -Normal: Reflux - None. 5. Peroneal Vein: 5.1. Compressibility - Fully compressible: Thrombus - None: Flow - Phasic: Augmentation -Normal: Reflux - None. 6. Great Saphenous Vein: 6.1. Compressibility - Fully compressible: Thrombus - None: Flow - Phasic: Augmentation - Normal: Reflux - None. OTHER FINDINGS: Right: None significant. Left: None significant. IMPRESSION: Right: No evidence of deep or superficial vein thrombosis of the right lower extremity. Normal valve function noted of the right side. Left: No evidence of deep or superficial vein thrombosis of the left lower extremity. Normal valve function noted of the left side.
[2016-08-24] MEDS: diltiaZEM 240 mg/24 Hours CD Cap PO SCH ×2 (10:01→12:36)
[2016-08-24] MEDS: Azithromycin 500 MG in Sodium Chloride 0.9% 250 ML IVPB SCH ×2 (10:02→12:35)
[2016-08-24] MEDS: POLYETHYLENE GLYCOL 3350 17 GM/Dose PACKET PO SCH ×2 (10:02→12:36)
--- NOTE | 2016-08-24 12:09 | CP.PCM.PN ---
Subjective - Date & Time of Evaluation Date of Evaluation: 08/24/16 Time of Evaluation: 12:06 - Subjective Subjective: CONDITION REMAINS SAME. FEEL[place]ETTER. LESS WEAK. NO PALPITATION OR CHEST PAIN. CRF. Objective - Vital Signs/Intake and Output Vital Signs (last 24 hours): Temp Pulse Resp BP Pulse Ox 98.4 F 80 20 133/77 98 08/24/16 09:10 08/24/16 09:10 08/24/16 09:10 08/24/16 11:10 08/24/16 09:10 Intake and Output: 08/24/16 08/24/16 06:59 18:59 Intake Total 200 Balance 200 - Medications Medications: Current Medications Albuterol/Ipratropium (Duoneb 3 Mg/0.5 Mg (3 Ml) Ud) 3 ml INH RQ4 [facility] Cinacalcet (Sensipar) 30 mg PO DAILY [facility] Last Admin: 08/24/16 10:02 Dose: Not Given Diltiazem HCl (Cardizem Cd) 240 mg PO DAILY [facility] Last Admin: 08/24/16 10:01 Dose: Not Given Docusate Sodium (Colace) 100 mg PO TID [facility] Last Admin: 08/24/16 10:01 Dose: Not Given Guaifenesin (Mucinex La) 600 mg PO BID [facility] Guaifenesin/Dextromethorphan (Robitussin Dm) 5 ml PO Q4H PRN PRN Reason: Cough Last Admin: 08/24/16 03:07 Dose: 5 ml Azithromycin 500 mg/ Sodium (Chloride) 250 mls @ 250 mls/hr IVPB DAILY [facility] Last Admin: 08/24/16 10:02 Dose: Not Given Metoprolol Tartrate (Lopressor) 50 mg PO BID [facility] Last Admin: 08/24/16 10:02 Dose: Not Given Polyethylene Glycol (Miralax) 17 gm PO DAILY [facility] Last Admin: 08/24/16 10:02 Dose: Not Given Rosuvastatin Calcium (Crestor) 5 mg PO HS [facility] Last Admin: 08/23/16 21:40 Dose: 5 mg Tamsulosin HCl (Flomax) 0.4 mg PO DAILY [facility] Last Admin: 08/24/16 10:02 Dose: Not Given - Labs Labs: 08/24/16 08:03 08/24/16 08:03 - Constitutional Appears: No Acute Distress, Chronically Ill - Eye Exam Eye Exam: Normal appearance, PERRL - ENT Exam ENT Exam: Normal Exam - Respiratory Exam Respiratory Exam: Clear to Ausculation Bilateral, NORMAL BREATHING PATTERN - Cardiovascular Exam Cardiovascular Exam: REGULAR RHYTHM, +S1, +S2 - GI/Abdominal Exam GI & Abdominal Exam: Soft, Normal Bowel Sounds - Extremities Exam Extremities Exam: Full ROM, Normal Capillary Refill, Normal Inspection. absent : Joint Swelling, Pedal Edema - Back Exam Back Exam: NORMAL INSPECTION Assessment and Plan - Assessment and Plan (Free Text) Assessment: COPD. CRF. A. FIB BY HISTORY. Plan: FOR ECHO. CT OTHER TREATMENT. HD.
[2016-08-24] MEDS: guaiFENesin 600 mg ER Tab PO SCH ×2 (12:33→17:13)
--- NOTE | 2016-08-24 15:11 | CARD ---
APPROVED REPORT EXAM: Two-dimensional and M-mode echocardiogram with Doppler and color Doppler. Other Information Quality : GoodRhythm : NSR INDICATION Dyspnea Atrial Fibrillation Chest Pain Congestive Heart Failure COPD RISK FACTORS Hypertension Hyperlipidemia M-Mode DIMENSIONS RVDd1.99 (2.1-3.2cm)Left Atrium (MM)4.41 (2.5-4.0cm) IVSd1.05 (0.7-1.1cm)Aortic Root3.01 (2.2-3.7cm) LVDd5.93 (4.0-5.6cm)Aortic Cusp Exc.2.58 (1.5-2.0cm) PWd1.13 (0.7-1.1cm)FS (%) 32 % LVDs4.02 (2.0-3.8cm)LVEF (%)60 (>50%) Aortic Valve AoV Peak Vetvflcf396.3cm/Letty Peak GR.6mmHg Mitral Valve MV E Fkbaqxjt03.7cm/sMV A Twxltotj17.5cm/sE/A ratio0.9 TDI E/Lateral E'0.0E/Medial E'0.0 Tricuspid Valve TR Peak [id number]/sTR Peak [id number] LEFT VENTRICLE The left ventricle is normal size. There is normal left ventricular wall thickness. Left ventricle systolic function is normal. The Ejection Fraction is 60-65%. There is normal LV segmental wall motion. Tissue Doppler imaging reveals abnormal left ventricular diastolic dysfunction. RIGHT VENTRICLE The right ventricle is normal size. There is normal right ventricular wall thickness. The right ventricular systolic function is normal. ATRIA The left atrium is mildly dilated. The right atrium size is normal. The interatrial septum is intact with no evidence for an atrial septal defect. AORTIC VALVE The aortic valve is normal in structure. No aortic regurgitation is present. There is no aortic valvular stenosis. There is no aortic valvular vegetation. MITRAL VALVE The mitral valve is normal in structure. There is no evidence of mitral valve prolapse. There is no mitral valve stenosis. Mitral regurgitation is mild. TRICUSPID VALVE The tricuspid valve is normal in structure. There is trace to mild tricuspid regurgitation. Right ventricular systolic pressure is estimated at less than 30 mmHg. There is no pulmonary hypertension. There is no tricuspid valve prolapse or vegetation. There is no tricuspid valve stenosis. PULMONIC VALVE The pulmonic valve is not well visualized. There is trace pulmonic valvular regurgitation. There is no pulmonic valvular stenosis. GREAT VESSELS The aortic root is normal in size. PERICARDIAL EFFUSION There is no significant pericardial effusion. <Conclusion> Left ventricle systolic function is normal. The Ejection Fraction is 60-65%. Diastolic dysfunction. No aortic regurgitation is present. Mitral regurgitation is mild. There is trace to mild tricuspid regurgitation. There is no pulmonary hypertension. There is trace pulmonic valvular regurgitation.
[2016-08-24] MEDS: Albuterol-Ipratrop 3 mg / 0.5 (3 ml) UD INH SCH ×2 (16:10→20:49)
--- NOTE | 2016-08-24 16:25 | RAD ---
HISTORY: cough COMPARISON: Comparison is made to the previous study dated 08/22/2016 FINDINGS: LUNGS: No evidence of new infiltrate or consolidation in the lungs. PLEURA: No significant pleural effusion identified, no pneumothorax apparent. CARDIOVASCULAR: The cardiac silhouette is enlarged. Normal. OSSEOUS STRUCTURES: No significant abnormalities. VISUALIZED UPPER ABDOMEN: Normal. OTHER FINDINGS: None. IMPRESSION: Suboptimal portable study due to the patient's body habitus. No evidence of pneumonia.
[2016-08-24] MEDS: Promethazine/Cod 6.25mg-10mg/5ml Syr UD PO PRN ×2 (17:13→21:25)
[2016-08-24 18:38] LABS: RBC URINE < 1 /hpf (0-3); URINE BACTERIA RARE (<OCC); URINE BILIRUBIN NEGATIVE (NEGATIVE); URINE BLOOD NEGATIVE (NEGATIVE); URINE COLOR Yellow (YELLOW); URINE GLUCOSE (UA) 2+ mg/dL (Normal); URINE KETONE NEGATIVE (NEGATIVE); URINE LEUKOCYTE ESTERASE NEG Leu/uL (Negative); URINE PROTEIN 3+ mg/dL (NEGATIVE); URINE UROBILINOGEN NORMAL mg/dL (0.2-1.0); WBC URINE 1 /hpf (0-5)
[2016-08-24 22:02] LABS: LEGIONELLA AG URINE NEGATIVE (NEGATIVE)
--- NOTE | 2016-08-24 22:06 | CARD ---
APPROVED REPORT EKG Measurement Heart [id number] <Conclusion> Normal sinus rhythm Minimal voltage criteria for LVH, may be normal variant Nonspecific ST abnormality Abnormal ECG
[2016-08-25] MEDS: Albuterol-Ipratrop 3 mg / 0.5 (3 ml) UD INH SCH ×5 (00:47→19:38)
[2016-08-25 07:26] LABS: BASO % 0.3 % (0.0-2.0); EOS % 1.7 % (0.0-4.0); HEMATOCRIT 35.5 % (35.0-51.0); LYMPH # 0.5 K/uL (1.0-4.3); LYMPH % 19.3 % (20.0-40.0); MEAN CELL VOLUME 92.1 fL (80.0-94.0); MEAN CORPUSCULAR HEMOGLOBIN 30.7 pg (27.0-31.0); MEAN CORPUSCULAR HGB CONC 33.4 g/dL (33.0-37.0); MEAN PLATELET VOLUME 10.2 fL (7.2-11.7); MONO # 0.3 K/uL (0.0-0.8); MONO % 13.2 % (0.0-10.0); RED CELL DISTRIBUTION WIDTH 16.9 % (11.5-14.5); WHITE BLOOD COUNT 2.4 K/uL (4.8-10.8)
[2016-08-25 07:37] LABS: CHLORIDE 87 mmol/L (98-107); POTASSIUM 3.8 mmol/L (3.6-5.2); SODIUM 135 mmol/L (132-148)
[2016-08-25 07:39] LABS: BILIRUBIN,TOTAL 1.1 mg/dL (0.2-1.3); CARBON DIOXIDE 31 mmol/L (22-30); GFR AFRICAN-AMERICAN 9
[2016-08-25 07:40] LABS: ALB/GLOB RATIO 1.5 (1.0-2.1); ALKALINE PHOSPHATASE 45 U/L (38-126); ALT/SGPT 43 U/L (21-72); AST/SGOT 55 U/L (17-59); BLOOD UREA NITROGEN 43 mg/dL (9-20); CALCIUM 8.3 mg/dl (8.6-10.4); GLUCOSE,RANDOM 89 mg/dL (75-110); PHOSPHOROUS 4.9 mg/dL (2.5-4.5); TOTAL PROTEIN 6.7 g/dL (6.3-8.3)
[2016-08-25 07:41] LABS: MAGNESIUM 2.2 mg/dL (1.6-2.3)
[2016-08-25 09:31] LABS: FOLATE > 20.0 ng/mL
--- NOTE | 2016-08-25 10:08 | CP.PCM.PN ---
Subjective - Date & Time of Evaluation Date of Evaluation: 08/25/16 Time of Evaluation: 10:05 - Subjective Subjective: Stable dialysis 08/24 Feels better Still wheezing Refuses extra HD today- pt has been noncompliant Objective - Vital Signs/Intake and Output Vital Signs (last 24 hours): Temp Pulse Resp BP Pulse Ox 98.8 F 76 20 135/66 99 08/25/16 08:15 08/25/16 08:15 08/25/16 08:15 08/25/16 08:15 08/25/16 08:15 - Medications Medications: Current Medications Albuterol/Ipratropium (Duoneb 3 Mg/0.5 Mg (3 Ml) Ud) 3 ml INH RQ4 [facility] Last Admin: 08/25/16 07:40 Dose: 3 ml Azithromycin (Zithromax) 500 mg PO DAILY [facility] Stop: 08/29/16 14:31 Last Admin: 08/24/16 14:55 Dose: 500 mg Cinacalcet (Sensipar) 30 mg PO DAILY [facility] Last Admin: 08/24/16 12:34 Dose: 30 mg Diltiazem HCl (Cardizem Cd) 240 mg PO DAILY [facility] Last Admin: 08/24/16 12:36 Dose: 240 mg Docusate Sodium (Colace) 100 mg PO TID [facility] Last Admin: 08/24/16 17:13 Dose: 100 mg Guaifenesin (Mucinex La) 600 mg PO BID [facility] Last Admin: 08/24/16 17:13 Dose: 600 mg Metoprolol Tartrate (Lopressor) 50 mg PO BID [facility] Last Admin: 08/24/16 17:14 Dose: 50 mg Polyethylene Glycol (Miralax) 17 gm PO DAILY [facility] Last Admin: 08/24/16 12:36 Dose: 17 gm Promethazine HCl/Codeine (Phenergan/Codeine Oral Syrup) 5 ml PO Q4 PRN PRN Reason: Cough Last Admin: 08/24/16 21:25 Dose: 5 ml Rosuvastatin Calcium (Crestor) 5 mg PO HS [facility] Last Admin: 08/24/16 21:24 Dose: 5 mg Tamsulosin HCl (Flomax) 0.4 mg PO DAILY [facility] Last Admin: 08/24/16 12:34 Dose: 0.4 mg - Labs Labs: 08/25/16 06:45 08/25/16 06:45 - Constitutional Appears: No Acute Distress, Chronically Ill - Head Exam Head Exam: ATRAUMATIC, NORMAL INSPECTION - Eye Exam Eye Exam: EOMI, Normal appearance - Neck Exam Neck Exam: Normal Inspection. absent: Tenderness - Respiratory Exam Respiratory Exam: Wheezes, NORMAL BREATHING PATTERN - Cardiovascular Exam Cardiovascular Exam: REGULAR RHYTHM, +S1 - GI/Abdominal Exam GI & Abdominal Exam: Soft. absent: Tenderness - Extremities Exam Extremities Exam: Normal Inspection. absent: Tenderness - Neurological Exam Neurological Exam: Awake, CN II-XII Intact - Skin Skin Exam: Dry, Warm Assessment and Plan (1) Chest pain Status: Acute (2) ESRD (end stage renal disease) on dialysis Status: Acute (3) COPD (chronic obstructive pulmonary disease) with chronic bronchitis Status: Chronic (4) Hypertension Status: Chronic - Assessment and Plan (Free Text) Plan: diialysis in AM same meds consider heme eval for low plats
[2016-08-25] MEDS: guaiFENesin 600 mg ER Tab PO SCH ×2 (11:41→11:57)
[2016-08-25] MEDS: diltiaZEM 240 mg/24 Hours CD Cap PO SCH (11:42)
[2016-08-25] MEDS: POLYETHYLENE GLYCOL 3350 17 GM/Dose PACKET PO SCH (11:42)
[2016-08-25] MEDS: Promethazine/Cod 6.25mg-10mg/5ml Syr UD PO PRN ×2 (11:52→17:48)
--- NOTE | 2016-08-25 12:58 | CP.PCM.PN ---
Subjective - Date & Time of Evaluation Date of Evaluation: 08/25/16 Time of Evaluation: 12:56 - Subjective Subjective: cardiac condition stable. no sob. no cp. vs wnl. Objective - Vital Signs/Intake and Output Vital Signs (last 24 hours): Temp Pulse Resp BP Pulse Ox 98.8 F 76 20 135/66 99 08/25/16 08:15 08/25/16 08:15 08/25/16 08:15 08/25/16 08:15 08/25/16 08:15 - Medications Medications: Current Medications Albuterol/Ipratropium (Duoneb 3 Mg/0.5 Mg (3 Ml) Ud) 3 ml INH RQ4 [facility] Last Admin: 08/25/16 07:40 Dose: 3 ml Azithromycin (Zithromax) 500 mg PO DAILY [facility] Stop: 08/29/16 14:31 Last Admin: 08/25/16 12:00 Dose: 500 mg Cinacalcet (Sensipar) 30 mg PO DAILY [facility] Last Admin: 08/25/16 11:41 Dose: 30 mg Diltiazem HCl (Cardizem Cd) 240 mg PO DAILY [facility] Last Admin: 08/25/16 11:42 Dose: 240 mg Docusate Sodium (Colace) 100 mg PO TID [facility] Last Admin: 08/25/16 11:42 Dose: 100 mg Guaifenesin (Mucinex La) 600 mg PO BID [facility] Last Admin: 08/25/16 11:57 Dose: Not Given Metoprolol Tartrate (Lopressor) 50 mg PO BID [facility] Last Admin: 08/25/16 11:42 Dose: 50 mg Polyethylene Glycol (Miralax) 17 gm PO DAILY [facility] Last Admin: 08/25/16 11:42 Dose: 17 gm Promethazine HCl/Codeine (Phenergan/Codeine Oral Syrup) 5 ml PO Q4 PRN PRN Reason: Cough Last Admin: 08/25/16 11:52 Dose: 5 ml Rosuvastatin Calcium (Crestor) 5 mg PO HS [facility] Last Admin: 08/24/16 21:24 Dose: 5 mg Tamsulosin HCl (Flomax) 0.4 mg PO DAILY [facility] Last Admin: 08/25/16 11:41 Dose: 0.4 mg - Labs Labs: 08/25/16 06:45 08/25/16 06:45 - Constitutional Appears: No Acute Distress, Chronically Ill - Eye Exam Eye Exam: Normal appearance, PERRL - ENT Exam ENT Exam: Normal Exam - Respiratory Exam Respiratory Exam: Clear to Ausculation Bilateral, NORMAL BREATHING PATTERN - Cardiovascular Exam Cardiovascular Exam: REGULAR RHYTHM, +S1, +S2 - GI/Abdominal Exam GI & Abdominal Exam: Soft, Normal Bowel Sounds - Back Exam Back Exam: NORMAL INSPECTION - Neurological Exam Neurological Exam: Alert, Awake, CN II-XII Intact, Normal Gait, Oriented x3 Assessment and Plan - Assessment and Plan (Free Text) Assessment: cardiac stable. ECHO SHOWS DIASTOLIC DYSFUNCTION. Plan: CT OTHER MANAGEMENT.
--- NOTE | 2016-08-25 16:21 | CP.PCM.PN ---
Subjective - Date & Time of Evaluation Date of Evaluation: 08/25/16 Time of Evaluation: 08:30 - Subjective Subjective: Internal medicine progress note for Dr. Jessica Christine, PGY-1 Pt S & E at bedside. Pt reports continued dizziness, weakness. Pt reports he is very tired, did not sleep well overnight, now with fatigue inhibiting ability to stand for long periods to time. Cough is improved. Denies N/V/F/C, SOB, CP, abdominal pain, other complaints. Is eating ok. Objective - Vital Signs/Intake and Output Vital Signs (last 24 hours): Temp Pulse Resp BP Pulse Ox 98.2 F 70 20 127/66 97 08/25/16 16:00 08/25/16 16:00 08/25/16 16:00 08/25/16 16:00 08/25/16 16:00 Intake and Output: 08/25/16 08/25/16 06:59 18:59 Intake Total 500 Balance 500 - Medications Medications: Current Medications Albuterol/Ipratropium (Duoneb 3 Mg/0.5 Mg (3 Ml) Ud) 3 ml INH RQ4 [facility] Last Admin: 08/25/16 07:40 Dose: 3 ml Azithromycin (Zithromax) 500 mg PO DAILY [facility] Stop: 08/29/16 14:31 Last Admin: 08/25/16 12:00 Dose: 500 mg Cinacalcet (Sensipar) 30 mg PO DAILY [facility] Last Admin: 08/25/16 11:41 Dose: 30 mg Diltiazem HCl (Cardizem Cd) 240 mg PO DAILY [facility] Last Admin: 08/25/16 11:42 Dose: 240 mg Docusate Sodium (Colace) 100 mg PO TID [facility] Last Admin: 08/25/16 14:07 Dose: Not Given Guaifenesin (Mucinex La) 600 mg PO BID [facility] Last Admin: 08/25/16 11:57 Dose: Not Given Metoprolol Tartrate (Lopressor) 50 mg PO BID [facility] Last Admin: 08/25/16 11:42 Dose: 50 mg Multivitamins (Hexavitamin) 1 tab PO DAILY [facility] Polyethylene Glycol (Miralax) 17 gm PO DAILY [facility] Last Admin: 08/25/16 11:42 Dose: 17 gm Promethazine HCl/Codeine (Phenergan/Codeine Oral Syrup) 5 ml PO Q4 PRN PRN Reason: Cough Last Admin: 08/25/16 11:52 Dose: 5 ml Rosuvastatin Calcium (Crestor) 5 mg PO HS [facility] Last Admin: 08/24/16 21:24 Dose: 5 mg Tamsulosin HCl (Flomax) 0.4 mg PO DAILY [facility] Last Admin: 08/25/16 11:41 Dose: 0.4 mg - Labs Labs: 08/25/16 06:45 08/25/16 06:45 - Constitutional Appears: Non-toxic, No Acute Distress - Head Exam Head Exam: ATRAUMATIC, NORMAL INSPECTION, NORMOCEPHALIC - Eye Exam Eye Exam: EOMI, Normal appearance, PERRL Pupil Exam: NORMAL ACCOMODATION, PERRL - ENT Exam ENT Exam: Mucous Membranes Moist, Normal Exam - Neck Exam Neck Exam: Full ROM, Normal Inspection - Respiratory Exam Respiratory Exam: Clear to Ausculation Bilateral, NORMAL BREATHING PATTERN. absent: Rales, Rhonchi, Wheezes - Cardiovascular Exam Cardiovascular Exam: REGULAR RHYTHM, +S1, +S2 - GI/Abdominal Exam GI & Abdominal Exam: Soft, Normal Bowel Sounds. absent: Distended, Tenderness - Extremities Exam Extremities Exam: Normal Inspection. absent: Tenderness - Neurological Exam Neurological Exam: Alert, Awake, CN II-XII Intact, Oriented x3 - Psychiatric Exam Psychiatric exam: Normal Affect, Normal Mood - Skin Skin Exam: Dry, Intact, Warm. absent: Normal Color (multiple ecchymoses over upper extremities B/L) Assessment and Plan - Assessment and Plan (Free Text) Assessment: 1. Shortness of Breath Duoneb q6h PRN SOB Azithromycin 500 mg PO daily Day 2/5 Robitussin DM 5 ml po q4H PRN cough D-dimer 478 VQ scan low probability of PE Anticoagulation contraindicated due to pancytopenia Echo w/EF 60-65% Wells' Criteria -2 : low risk for DVT, unlikely Legionella Negative Mycoplasma Negative CXR: Linear atelectasis in the right midlung zone. 2 small rounded nodular densities seen within the right mid lung zone may represent nodules or granulomas. Upper lobe granulomatous changes. Bilateral paratracheal prominence which may represent productive change at the ends of the 1st ribs. Mild bilateral hilar prominence. Mild venous congestion. Repeat CXR - Suboptimal portable study due to the patient's body habitus. No evidence of pneumonia. FU Sputum cxr FU AFB x 3 FU Quantiferon -TB test Placed on airborne precautions 2. ESRD Potassium 3.8 BUN/CR 43/7.3 HD MWF FU nephro - pt refusing extra HD today, will have HD in AM 3. History of Atrial fibrillation Continued on home medications ASA 325 mg po daily and Diltiazem CD 240 mg po daily EKG: NSR HASBLED score = 3; correlates with 5.8% risk of major bleed- contraindication for anticoagulation NADIRA score = 1 FU cardio - Echo w/diastolic dysfunction, continue current mgmt 4. Hypertension BP 135/66 Continue Metoprolol 50 mg po BID Monitor 5. Hyperlipidemia Crestor 5 mg po HS Lipid panel: TG 162, Chol 178, LDL <30, HDL 27 6. Pancytopenia WBC 2.3, platelets 41 Appears to be chronic Noted on previous admission HIV neg Hep A, B, C neg FU HIT panel Heme/Onc following, ordered multiple studies 7. BPH Continue home medication flomax 0.4 mg po daily 8. Constipation Colace 100 mg po TID Miralax daily 9. Prophylaxis SCD Pepcid 20 mg po daily Contraindications for VTC ppx 10. Dispo TB work up in progress Airborne isolation precautions For dialysis tomorrow SW consult for FLO placement once stabilized DW attending
--- NOTE | 2016-08-25 17:20 | CP.PCM.CON ---
History of Present Illness - History of Present Illness History of Present Illness: 61 year old male with a history of HTN, COPD, afib, non hodgkins lymphoma s/p 6 months chemotherapy in 2010 admitted with cough and weakness, found to be pancytopenic. The patient reports to being diagnosed and treated with non hodgkins lymphoma in 2010 at [facility] in [facility]. He was treated with 6 months of unknown chemotherapy and was routinely following with them every 3 months however in the last 1-2 years he reports he has not followed up. He denies abnormal bleeding and bruising. He does admit to diminished appetite and weightloss but is unable to quantify. Past medical history: HTN, COPD, afib, non hodgkins lymphoma Past surgical history: None Family history: Denies hematologic and oncologic problems Social history: Denies tobacco, alcohol, and illicit drug use. Allergies: NKA Review of systems: All remaining review of systems including HEENT, cardiovascular, respiratory, gastrointestinal, genitourinary, musculoskeletal, dermatologic, neurologic, and psychiatric are negative unless mentioned in the HPI. Past Patient History - Infectious Disease Hx of Infectious Diseases: None - Past Medical History & Family History Past Medical History?: Yes - Past Social History Smoking Status: Former Smoker - CARDIAC Hx Cardiac Disorders: Yes (AFIB) Hx Hypercholesterolemia: Yes Hx Hypertension: Yes - PULMONARY Hx Chronic Obstructive Pulmonary Disease (COPD): Yes - NEUROLOGICAL Hx Neurological Disorder: No - HEENT Hx HEENT Problems: No Other/Comment: WEARS GLASSES - RENAL Hx Chronic Kidney Disease: Yes Hx Dialysis: Yes Type of Dialysis Access: KIMBERLY Hx Kidney Stones: Yes (1998) - ENDOCRINE/METABOLIC Hx Endocrine Disorders: No - HEMATOLOGICAL/ONCOLOGICAL Hx Blood Disorders: Yes Hx Anemia: Yes - INTEGUMENTARY Hx Dermatological Problems: No - MUSCULOSKELETAL/RHEUMATOLOGICAL Hx Musculoskeletal Disorders: No Hx Falls: No - GASTROINTESTINAL Hx Gastrointestinal Disorders: No - GENITOURINARY/GYNECOLOGICAL Hx Genitourinary Disorders: Yes Hx Prostate Problems: Yes - PSYCHIATRIC Hx Substance Use: No - SURGICAL HISTORY Hx Surgeries: Yes Hx Arteriovenous Shunt: Yes (right upper arm) Hx Vascular Access Device: Yes (right upper arm) Other/Comment: TURP - ANESTHESIA Hx Anesthesia: Yes Hx Anesthesia Reactions: No Hx Malignant Hyperthermia: No Meds Allergies/Adverse Reactions: Allergies Allergy/AdvReac Type Severity Reaction Status Date / Time No Known Allergies Allergy Verified 08/22/16 19:41 - Medications Medications: Current Medications Albuterol/Ipratropium (Duoneb 3 Mg/0.5 Mg (3 Ml) Ud) 3 ml INH RQ4 [facility] Last Admin: 08/25/16 16:34 Dose: 3 ml Azithromycin (Zithromax) 500 mg PO DAILY [facility] Stop: 08/29/16 14:31 Last Admin: 08/25/16 12:00 Dose: 500 mg Cinacalcet (Sensipar) 30 mg PO DAILY [facility] Last Admin: 08/25/16 11:41 Dose: 30 mg Diltiazem HCl (Cardizem Cd) 240 mg PO DAILY [facility] Last Admin: 08/25/16 11:42 Dose: 240 mg Docusate Sodium (Colace) 100 mg PO TID [facility] Last Admin: 08/25/16 14:07 Dose: Not Given Guaifenesin (Mucinex La) 600 mg PO BID [facility] Last Admin: 08/25/16 11:57 Dose: Not Given Metoprolol Tartrate (Lopressor) 50 mg PO BID [facility] Last Admin: 08/25/16 11:42 Dose: 50 mg Multivitamins (Hexavitamin) 1 tab PO DAILY [facility] Polyethylene Glycol (Miralax) 17 gm PO DAILY [facility] Last Admin: 08/25/16 11:42 Dose: 17 gm Promethazine HCl/Codeine (Phenergan/Codeine Oral Syrup) 5 ml PO Q4 PRN PRN Reason: Cough Last Admin: 08/25/16 11:52 Dose: 5 ml Rosuvastatin Calcium (Crestor) 5 mg PO HS [facility] Last Admin: 08/24/16 21:24 Dose: 5 mg Tamsulosin HCl (Flomax) 0.4 mg PO DAILY [facility] Last Admin: 08/25/16 11:41 Dose: 0.4 mg Physical Exam - Head Exam Head Exam: ATRAUMATIC - Eye Exam Eye Exam: Normal appearance - ENT Exam ENT Exam: Mucous Membranes Dry - Respiratory Exam Respiratory Exam: NORMAL BREATHING PATTERN - Cardiovascular Exam Cardiovascular Exam: +S1, +S2 - GI/Abdominal Exam GI & Abdominal Exam: Normal Bowel Sounds - Extremities Exam Extremities exam: Positive for: pedal edema - Neurological Exam Neurological exam: Oriented x3 - Psychiatric Exam Psychiatric exam: Normal Affect, Normal Mood - Skin Skin Exam: Warm Results - Vital Signs Recent Vital Signs: Last Vital Signs Temp 98.2 F 08/25/16 16:00 Pulse 70 08/25/16 16:00 Resp 20 08/25/16 16:00 BP 127/66 08/25/16 16:00 Pulse Ox 97 08/25/16 16:00 - Labs Result Diagrams: 08/25/16 06:45 08/25/16 06:45 Labs: Laboratory Results - last 24 hr 08/24/16 08/24/16 08/25/16 11:21 18:18 06:45 WBC 2.4 L RBC 3.85 L Hgb 11.8 L Hct 35.5 MCV 92.1 MCH 30.7 MCHC 33.4 RDW 16.9 H Plt Count 42 L MPV 10.2 Neut % (Auto) 65.5 Lymph % (Auto) 19.3 L [place] % (Auto) 13.2 H Eos % (Auto) 1.7 Baso % (Auto) 0.3 Neut # 1.6 L Lymph # 0.5 L [place] # 0.3 Eos # 0.0 Baso # 0.0 Retic Count 0.5 Sodium 135 Potassium 3.8 Chloride 87 L Carbon Dioxide 31 H Anion Gap 21 H BUN 43 H Creatinine 7.3 H Est GFR ( Amer) 9 Est GFR (Non-Af Amer) 8 Random Glucose 89 Calcium 8.3 L Phosphorus 4.9 H Magnesium 2.2 Ferritin 2610.0 Total Bilirubin 1.1 AST 55 ALT 43 Alkaline Phosphatase 45 Total Protein 6.7 Albumin 4.1 Globulin 2.6 Albumin/Globulin Ratio 1.5 Vitamin B12 857 Folate > 20.0 Urine Color Yellow Urine Clarity Hazy Urine pH 8.0 Ur Specific Pearson 1.012 Urine Protein 3+ H Urine Glucose (UA) 2+ H Urine Ketones Negative Urine Blood Negative Urine Nitrate Negative Urine Bilirubin Negative Urine Urobilinogen Normal Ur Leukocyte Esterase Neg Urine WBC (Auto) 1 Urine RBC (Auto) < 1 Ur Squamous Epith Cells 1 Urine Bacteria Rare Ur L.pneumophila Ag Negative Assessment & Plan (1) Pancytopenia Assessment and Plan: rule out lymphoma recurrence will need bone marrow evaluation; will plan for tomorrow AM mild neutropenia anemia of CKD Status: Acute (2) Non-Hodgkin lymphoma Assessment and Plan: bone biopsy outpatient PET CT Thank you for this interesting consult. Status: Acute
[2016-08-26] MEDS: Albuterol-Ipratrop 3 mg / 0.5 (3 ml) UD INH SCH ×6 (00:50→20:37)
[2016-08-26 02:45] LABS: TOTAL PROTEIN, SERUM 6.1 g/dL (6.1-8.1)
[2016-08-26 07:17] LABS: POTASSIUM 3.8 mmol/L (3.6-5.2)
[2016-08-26 07:19] LABS: ALB/GLOB RATIO 1.6 (1.0-2.1); TOTAL PROTEIN 6.3 g/dL (6.3-8.3)
[2016-08-26 07:20] LABS: CALCIUM 7.7 mg/dl (8.6-10.4); MAGNESIUM 2.3 mg/dL (1.6-2.3); PHOSPHOROUS 6.9 mg/dL (2.5-4.5)
[2016-08-26 07:23] LABS: BASO % 0.4 % (0.0-2.0); EOS # 0.2 K/uL (0.0-0.7); HEMATOCRIT 33.6 % (35.0-51.0); LYMPH # 0.7 K/uL (1.0-4.3); LYMPH % 28.1 % (20.0-40.0); MEAN CORPUSCULAR HEMOGLOBIN 30.3 pg (27.0-31.0); MEAN PLATELET VOLUME 10.5 fL (7.2-11.7); MONO # 0.2 K/uL (0.0-0.8); MONO % 9.3 % (0.0-10.0); NRBC % 0.1 % (0.0-2.0); RED CELL DISTRIBUTION WIDTH 16.9 % (11.5-14.5); WHITE BLOOD COUNT 2.6 K/uL (4.8-10.8)
[2016-08-26] MEDS: POLYETHYLENE GLYCOL 3350 17 GM/Dose PACKET PO SCH (10:18)
[2016-08-26] MEDS: Multiple Vitamins Tab PO SCH (10:18)
[2016-08-26] MEDS: guaiFENesin 600 mg ER Tab PO SCH ×3 (10:18→21:58)
[2016-08-26] MEDS: diltiaZEM 240 mg/24 Hours CD Cap PO SCH (10:18)
--- NOTE | 2016-08-26 11:57 | CP.PCM.PN ---
Subjective - Date & Time of Evaluation Date of Evaluation: 08/26/16 Time of Evaluation: 11:55 - Subjective Subjective: WEAKNESS PRESENT. FATIGUE. CARDIAC STABLE. Objective - Vital Signs/Intake and Output Vital Signs (last 24 hours): Temp Pulse Resp BP Pulse Ox 97.9 F 70 20 126/74 99 08/26/16 10:20 08/26/16 10:15 08/26/16 10:20 08/26/16 11:00 08/26/16 10:20 Intake and Output: 08/26/16 08/26/16 06:59 18:59 Intake Total 450 Balance 450 - Medications Medications: Current Medications Albuterol/Ipratropium (Duoneb 3 Mg/0.5 Mg (3 Ml) Ud) 3 ml INH RQ4 [facility] Last Admin: 08/26/16 11:09 Dose: Not Given Azithromycin (Zithromax) 500 mg PO DAILY [facility] Stop: 08/29/16 14:31 Last Admin: 08/26/16 10:18 Dose: Not Given Cinacalcet (Sensipar) 30 mg PO DAILY [facility] Last Admin: 08/26/16 10:18 Dose: Not Given Diltiazem HCl (Cardizem Cd) 240 mg PO DAILY [facility] Last Admin: 08/26/16 10:18 Dose: Not Given Docusate Sodium (Colace) 100 mg PO TID [facility] Last Admin: 08/26/16 10:18 Dose: Not Given Guaifenesin (Mucinex La) 600 mg PO BID [facility] Last Admin: 08/26/16 10:18 Dose: Not Given Metoprolol Tartrate (Lopressor) 50 mg PO BID [facility] Last Admin: 08/26/16 10:18 Dose: Not Given Multivitamins (Hexavitamin) 1 tab PO DAILY [facility] Last Admin: 08/26/16 10:18 Dose: Not Given Polyethylene Glycol (Miralax) 17 gm PO DAILY [facility] Last Admin: 08/26/16 10:18 Dose: Not Given Promethazine HCl/Codeine (Phenergan/Codeine Oral Syrup) 5 ml PO Q4 PRN PRN Reason: Cough Last Admin: 08/25/16 17:48 Dose: 5 ml Rosuvastatin Calcium (Crestor) 5 mg PO HS [facility] Last Admin: 08/24/16 21:24 Dose: 5 mg Tamsulosin HCl (Flomax) 0.4 mg PO DAILY [facility] Last Admin: 08/26/16 10:18 Dose: Not Given - Labs Labs: 08/26/16 07:03 08/26/16 07:03 - Constitutional Appears: No Acute Distress, Chronically Ill - Eye Exam Eye Exam: Normal appearance Pupil Exam: PERRL - ENT Exam ENT Exam: Normal Exam - Neck Exam Neck Exam: Normal Inspection - Respiratory Exam Respiratory Exam: Clear to Ausculation Bilateral, NORMAL BREATHING PATTERN - Cardiovascular Exam Cardiovascular Exam: REGULAR RHYTHM, +S1, +S2 - GI/Abdominal Exam GI & Abdominal Exam: Soft, Normal Bowel Sounds - Neurological Exam Neurological Exam: Alert, Awake, CN II-XII Intact, Normal Gait, Oriented x3 - Psychiatric Exam Psychiatric exam: Normal Affect, Normal Mood Assessment and Plan - Assessment and Plan (Free Text) Assessment: SAME Plan: CT OTHER MANAGEMENT. HEMATOLOGY EVAL. HD.
--- NOTE | 2016-08-26 14:13 | CP.PCM.PN ---
Subjective - Date & Time of Evaluation Date of Evaluation: 08/26/16 Time of Evaluation: 14:10 - Subjective Subjective: On dialysis now- tolerating well To UF 3000ml Phos elevated Other chemistries acceptable Not dyspneic. No n,v chills, CPs Objective - Vital Signs/Intake and Output Vital Signs (last 24 hours): Temp Pulse Resp BP Pulse Ox 97.9 F 70 20 121/70 99 08/26/16 10:20 08/26/16 10:15 08/26/16 10:20 08/26/16 11:50 08/26/16 10:20 Intake and Output: 08/26/16 08/26/16 06:59 18:59 Intake Total 450 Balance 450 - Medications Medications: Current Medications Albuterol/Ipratropium (Duoneb 3 Mg/0.5 Mg (3 Ml) Ud) 3 ml INH RQ4 [facility] Last Admin: 08/26/16 11:09 Dose: Not Given Azithromycin (Zithromax) 500 mg PO DAILY [facility] Stop: 08/29/16 14:31 Last Admin: 08/26/16 10:18 Dose: Not Given Cinacalcet (Sensipar) 30 mg PO DAILY [facility] Last Admin: 08/26/16 10:18 Dose: Not Given Diltiazem HCl (Cardizem Cd) 240 mg PO DAILY [facility] Last Admin: 08/26/16 10:18 Dose: Not Given Docusate Sodium (Colace) 100 mg PO TID [facility] Last Admin: 08/26/16 10:18 Dose: Not Given Guaifenesin (Mucinex La) 600 mg PO BID [facility] Last Admin: 08/26/16 10:18 Dose: Not Given Metoprolol Tartrate (Lopressor) 50 mg PO BID [facility] Last Admin: 08/26/16 10:18 Dose: Not Given Multivitamins (Hexavitamin) 1 tab PO DAILY [facility] Last Admin: 08/26/16 10:18 Dose: Not Given Polyethylene Glycol (Miralax) 17 gm PO DAILY [facility] Last Admin: 08/26/16 10:18 Dose: Not Given Promethazine HCl/Codeine (Phenergan/Codeine Oral Syrup) 5 ml PO Q4 PRN PRN Reason: Cough Last Admin: 08/25/16 17:48 Dose: 5 ml Rosuvastatin Calcium (Crestor) 5 mg PO HS [facility] Last Admin: 08/24/16 21:24 Dose: 5 mg Tamsulosin HCl (Flomax) 0.4 mg PO DAILY [facility] Last Admin: 08/26/16 10:18 Dose: Not Given - Labs Labs: 08/26/16 07:03 08/26/16 07:03 - Constitutional Appears: No Acute Distress, Chronically Ill - Head Exam Head Exam: ATRAUMATIC, NORMAL INSPECTION - Eye Exam Eye Exam: EOMI, Normal appearance - Neck Exam Neck Exam: Normal Inspection. absent: Tenderness - Respiratory Exam Respiratory Exam: Clear to Ausculation Bilateral, NORMAL BREATHING PATTERN - Cardiovascular Exam Cardiovascular Exam: REGULAR RHYTHM, +S1 - GI/Abdominal Exam GI & Abdominal Exam: Soft. absent: Tenderness - Extremities Exam Extremities Exam: Normal Inspection. absent: Tenderness - Neurological Exam Neurological Exam: Awake, CN II-XII Intact - Skin Skin Exam: Dry, Warm Assessment and Plan (1) Chest pain Status: Acute (2) ESRD (end stage renal disease) on dialysis Status: Acute (3) COPD (chronic obstructive pulmonary disease) with chronic bronchitis Status: Chronic (4) Hypertension Status: Chronic - Assessment and Plan (Free Text) Plan: Dialysis MWF Add phoslo Keep EDW lower at outpt dialysis
[2016-08-26 15:50] LABS: HEPARIN-IND PLATELET AB Negative (Negative); RESULT Negative (Negative)
[2016-08-26 17:19] LABS: BETA 1 GLOBULIN 0.3 g/dL (0.4-0.6); BETA 2 GLOBULIN 0.3 g/dL (0.2-0.5); GAMMA GLOBULIN 0.6 g/dL (0.8-1.7)
--- NOTE | 2016-08-26 17:42 | CP.PCM.PN ---
<Mohsen Kendall - Last Filed: 08/26/16 17:36> Subjective - Date & Time of Evaluation Date of Evaluation: 08/26/16 Time of Evaluation: 17:36 - Subjective Subjective: PGY-1 note for medicine service Pt seen and examined at bedside. Pt states that he feels well. Denies any sob, and states that his cough is decreased. Pt is for HD today. Denies any fevers, chills, chest pain, nausea and vomiting. Objective - Vital Signs/Intake and Output Vital Signs (last 24 hours): Temp Pulse Resp BP Pulse Ox 98.2 F 76 20 145/77 98 08/26/16 17:00 08/26/16 17:00 08/26/16 17:00 08/26/16 17:00 08/26/16 17:00 Intake and Output: 08/26/16 08/26/16 06:59 18:59 Intake Total 450 250 Balance 450 250 - Medications Medications: Current Medications Albuterol/Ipratropium (Duoneb 3 Mg/0.5 Mg (3 Ml) Ud) 3 ml INH RQ4 [facility] Last Admin: 08/26/16 16:18 Dose: Not Given Azithromycin (Zithromax) 500 mg PO DAILY [facility] Stop: 08/29/16 14:31 Last Admin: 08/26/16 10:18 Dose: Not Given Calcium Acetate (Phoslo) 667 mg PO TIDCC [facility] Cinacalcet (Sensipar) 30 mg PO DAILY [facility] Last Admin: 08/26/16 10:18 Dose: Not Given Diltiazem HCl (Cardizem Cd) 240 mg PO DAILY [facility] Last Admin: 08/26/16 10:18 Dose: Not Given Docusate Sodium (Colace) 100 mg PO TID [facility] Last Admin: 08/26/16 14:58 Dose: Not Given Guaifenesin (Mucinex La) 600 mg PO BID [facility] Last Admin: 08/26/16 10:18 Dose: Not Given Metoprolol Tartrate (Lopressor) 50 mg PO BID [facility] Last Admin: 08/26/16 10:18 Dose: Not Given Multivitamins (Hexavitamin) 1 tab PO DAILY [facility] Last Admin: 08/26/16 10:18 Dose: Not Given Polyethylene Glycol (Miralax) 17 gm PO DAILY [facility] Last Admin: 08/26/16 10:18 Dose: Not Given Promethazine HCl/Codeine (Phenergan/Codeine Oral Syrup) 5 ml PO Q4 PRN PRN Reason: Cough Last Admin: 08/25/16 17:48 Dose: 5 ml Rosuvastatin Calcium (Crestor) 5 mg PO HS [facility] Last Admin: 08/24/16 21:24 Dose: 5 mg Tamsulosin HCl (Flomax) 0.4 mg PO DAILY [facility] Last Admin: 08/26/16 10:18 Dose: Not Given - Labs Labs: 08/26/16 07:03 08/26/16 07:03 - Constitutional Appears: Non-toxic, No Acute Distress - Head Exam Head Exam: ATRAUMATIC, NORMOCEPHALIC - Eye Exam Eye Exam: Normal appearance - ENT Exam ENT Exam: Mucous Membranes Moist - Respiratory Exam Respiratory Exam: Clear to Ausculation Bilateral, NORMAL BREATHING PATTERN - Cardiovascular Exam Cardiovascular Exam: +S1, +S2 - GI/Abdominal Exam GI & Abdominal Exam: Soft, Normal Bowel Sounds - Neurological Exam Neurological Exam: Alert, Awake - Skin Skin Exam: Dry, Warm Assessment and Plan - Assessment and Plan (Free Text) Assessment: 1. Shortness of Breath - Improved today - Duoneb q6h PRN SOB - Azithromycin 500 mg PO daily (08/24) - Robitussin DM 5 ml po q4H PRN cough - D-dimer 478 - VQ scan low probability of PE - Anticoagulation contraindicated due to pancytopenia - Echo w/EF 60-65% - Wells' Criteria -2 : low risk for DVT, unlikely - Legionella Negative - Mycoplasma Negative CXR: Linear atelectasis in the right midlung zone. 2 small rounded nodular densities seen within the right mid lung zone may represent nodules or granulomas. Upper lobe granulomatous changes. Bilateral paratracheal prominence which may represent productive change at the ends of the 1st ribs. Mild bilateral hilar prominence. Mild venous congestion. - Repeat CXR - Suboptimal portable study due to the patient's body habitus. No evidence of pneumonia. - FU Sputum cxr - FU AFB x 3 - FU Quantiferon -TB test - Placed on airborne precautions 2. ESRD - HD today - HD MWF - FU nephro - add phoslo 3. History of Atrial fibrillation - Continued on home medications ASA 325 mg po daily and Diltiazem CD 240 mg po daily - EKG: NSR - HASBLED score = 3; correlates with 5.8% risk of major bleed- contraindication for anticoagulation - NADIRA score = 1 - FU cardio - Echo w/diastolic dysfunction, continue current mgmt 4. Hypertension - Continue Metoprolol 50 mg po BID - Monitor 5. Hyperlipidemia - Crestor 5 mg po HS - Lipid panel: TG 162, Chol 178, LDL <30, HDL 27 6. Pancytopenia - stable - Appears to be chronic - Noted on previous admission - HIV neg - Hep A, B, C neg - FU HIT panel - Heme/Onc following, ordered multiple studies 7. BPH - Continue home medication flomax 0.4 mg po daily 8. Constipation - Colace 100 mg po TID - Miralax daily 9. Prophylaxis - SCD - Pepcid 20 mg po daily - Contraindications for VTC ppx 10. Dispo - TB work up in progress - Airborne isolation precautions - consult for FLO placement once stabilized attending <Jere Reis - Last Filed: 08/27/16 11:48> Objective - Vital Signs/Intake and Output Vital Signs (last 24 hours): Temp Pulse Resp BP Pulse Ox 98.0 F 80 20 128/75 97 08/27/16 08:25 08/27/16 08:25 08/27/16 08:25 08/27/16 08:25 08/27/16 08:25 Intake and Output: 08/27/16 08/27/16 06:59 18:59 Intake Total 150 Balance 150 - Medications Medications: Current Medications Albuterol/Ipratropium (Duoneb 3 Mg/0.5 Mg (3 Ml) Ud) 3 ml INH RQ4 [facility] Last Admin: 08/27/16 09:12 Dose: 3 ml Azithromycin (Zithromax) 500 mg PO DAILY [facility] Stop: 08/29/16 14:31 Last Admin: 08/27/16 11:33 Dose: 500 mg Calcium Acetate (Phoslo) 667 mg PO TIDCC [facility] Last Admin: 08/27/16 08:05 Dose: 667 mg Cinacalcet (Sensipar) 30 mg PO DAILY [facility] Last Admin: 08/27/16 11:31 Dose: 30 mg Diltiazem HCl (Cardizem Cd) 240 mg PO DAILY [facility] Last Admin: 08/27/16 11:33 Dose: 240 mg Docusate Sodium (Colace) 100 mg PO TID [facility] Last Admin: 08/27/16 11:32 Dose: 100 mg Guaifenesin (Mucinex La) 600 mg PO BID [facility] Last Admin: 08/27/16 11:32 Dose: 600 mg Metoprolol Tartrate (Lopressor) 50 mg PO BID [facility] Last Admin: 08/27/16 11:31 Dose: 50 mg Multivitamins (Hexavitamin) 1 tab PO DAILY [facility] Last Admin: 08/27/16 11:31 Dose: 1 tab Polyethylene Glycol (Miralax) 17 gm PO DAILY [facility] Last Admin: 08/27/16 11:32 Dose: 17 gm Promethazine HCl/Codeine (Phenergan/Codeine Oral Syrup) 5 ml PO Q4 PRN PRN Reason: Cough Last Admin: 08/27/16 01:33 Dose: 5 ml Rosuvastatin Calcium (Crestor) 5 mg PO HS [facility] Last Admin: 08/26/16 21:58 Dose: 5 mg Tamsulosin HCl (Flomax) 0.4 mg PO DAILY [facility] Last Admin: 08/27/16 11:32 Dose: 0.4 mg - Labs Labs: 08/26/16 07:03 08/26/16 07:03 Attending/Attestation - Attestation I have personally seen and examined this patient.: Yes I have fully participated in the care of the patient.: Yes I have reviewed all pertinent clinical information, including history, physical exam and plan: Yes Notes (Text): Patient with ESRD on HD, previously treated lymphoma, admitted with lethargy, persistent cough; admitted to only getting HD twice weekly; Found to have worsening pancytopenia, heme consulted, for bone marrow biopsy; CXR mentions granulomatour changes, ruling out PTB with serial sputum for AFB; HTN controlled, on rate control meds for afib, not on AC.
[2016-08-27] MEDS: Albuterol-Ipratrop 3 mg / 0.5 (3 ml) UD INH SCH ×6 (00:55→19:28)
[2016-08-27] MEDS: Promethazine/Cod 6.25mg-10mg/5ml Syr UD PO PRN (01:33)
--- NOTE | 2016-08-27 08:37 | CP.PCM.PN ---
<Renea Christine - Last Filed: 08/27/16 10:17> Subjective - Date & Time of Evaluation Date of Evaluation: 08/27/16 Time of Evaluation: 10:14 - Subjective Subjective: Internal medicine progress note for Dr. Reis-Renea Christine, PGY-1 Pt S & E at bedside. Pt reports continued but improved weakness and cough. Did not sleep well overnight. Is eating ok. Denies N/V/F/C, SOB, CP abdominal pain. Objective - Vital Signs/Intake and Output Vital Signs (last 24 hours): Temp Pulse Resp BP Pulse Ox 98.0 F 80 20 128/75 97 08/27/16 08:25 08/27/16 08:25 08/27/16 08:25 08/27/16 08:25 08/27/16 08:25 Intake and Output: 08/27/16 08/27/16 06:59 18:59 Intake Total 150 Balance 150 - Medications Medications: Current Medications Albuterol/Ipratropium (Duoneb 3 Mg/0.5 Mg (3 Ml) Ud) 3 ml INH RQ4 [facility] Last Admin: 08/27/16 04:42 Dose: Not Given Azithromycin (Zithromax) 500 mg PO DAILY [facility] Stop: 08/29/16 14:31 Last Admin: 08/26/16 20:37 Dose: 500 mg Calcium Acetate (Phoslo) 667 mg PO TIDCC [facility] Last Admin: 08/27/16 08:05 Dose: 667 mg Cinacalcet (Sensipar) 30 mg PO DAILY [facility] Last Admin: 08/26/16 10:18 Dose: Not Given Diltiazem HCl (Cardizem Cd) 240 mg PO DAILY [facility] Last Admin: 08/26/16 10:18 Dose: Not Given Docusate Sodium (Colace) 100 mg PO TID [facility] Last Admin: 08/26/16 17:41 Dose: 100 mg Guaifenesin (Mucinex La) 600 mg PO BID [facility] Last Admin: 08/26/16 21:58 Dose: 600 mg Metoprolol Tartrate (Lopressor) 50 mg PO BID [facility] Last Admin: 08/26/16 17:41 Dose: 50 mg Multivitamins (Hexavitamin) 1 tab PO DAILY [facility] Last Admin: 08/26/16 10:18 Dose: Not Given Polyethylene Glycol (Miralax) 17 gm PO DAILY [facility] Last Admin: 08/26/16 10:18 Dose: Not Given Promethazine HCl/Codeine (Phenergan/Codeine Oral Syrup) 5 ml PO Q4 PRN PRN Reason: Cough Last Admin: 08/27/16 01:33 Dose: 5 ml Rosuvastatin Calcium (Crestor) 5 mg PO HS [facility] Last Admin: 08/26/16 21:58 Dose: 5 mg Tamsulosin HCl (Flomax) 0.4 mg PO DAILY [facility] Last Admin: 08/26/16 10:18 Dose: Not Given - Labs Labs: 08/26/16 07:03 08/26/16 07:03 - Constitutional Appears: Non-toxic, No Acute Distress - Head Exam Head Exam: ATRAUMATIC, NORMAL INSPECTION, NORMOCEPHALIC - Eye Exam Eye Exam: EOMI, Normal appearance, PERRL Pupil Exam: NORMAL ACCOMODATION, PERRL - ENT Exam ENT Exam: Mucous Membranes Moist, Normal Exam - Neck Exam Neck Exam: Full ROM, Normal Inspection - Respiratory Exam Respiratory Exam: Clear to Ausculation Bilateral, NORMAL BREATHING PATTERN. absent: Accessory Muscle Use, Chest Wall Tenderness, Rales, Rhonchi, Wheezes - Cardiovascular Exam Cardiovascular Exam: REGULAR RHYTHM, +S1, +S2 - GI/Abdominal Exam GI & Abdominal Exam: Soft, Normal Bowel Sounds. absent: Distended, Tenderness - Neurological Exam Neurological Exam: Alert, Awake, Oriented x3 - Psychiatric Exam Psychiatric exam: Normal Affect, Normal Mood - Skin Skin Exam: Dry, Intact, Normal Color, Warm Assessment and Plan - Assessment and Plan (Free Text) Assessment: 1. Shortness of Breath - Improved today - Duoneb q6h PRN SOB - Azithromycin 500 mg PO daily (08/24) - Robitussin DM 5 ml po q4H PRN cough - D-dimer 478 - VQ scan low probability of PE - Anticoagulation contraindicated due to pancytopenia - Echo w/EF 60-65% - Wells' Criteria -2 : low risk for DVT, unlikely - Legionella Negative - Mycoplasma Negative CXR: Linear atelectasis in the right midlung zone. 2 small rounded nodular densities seen within the right mid lung zone may represent nodules or granulomas. Upper lobe granulomatous changes. Bilateral paratracheal prominence which may represent productive change at the ends of the 1st ribs. Mild bilateral hilar prominence. Mild venous congestion. - Repeat CXR - Suboptimal portable study due to the patient's body habitus. No evidence of pneumonia. - FU Sputum cxr- pending - FU AFB x 3 - FU Quantiferon -TB test - Placed on airborne precautions 2. ESRD - HD today - HD MWF - FU nephro - add phoslo 3. History of Atrial fibrillation - Continued on home medications ASA 325 mg po daily and Diltiazem CD 240 mg po daily - EKG: NSR - HASBLED score = 3; correlates with 5.8% risk of major bleed- contraindication for anticoagulation - NADIRA score = 1 - Cardio - following- Echo w/diastolic dysfunction, continue current mgmt 4. Hypertension - Continue Metoprolol 50 mg po BID - Monitor 5. Hyperlipidemia - Crestor 5 mg po HS - Lipid panel: TG 162, Chol 178, LDL <30, HDL 27 6. Pancytopenia - stable - Appears to be chronic - Noted on previous admission - HIV neg - Hep A, B, C neg - HIT ab neg - Heme/Onc following, ordered multiple studies 7. BPH - Continue home medication flomax 0.4 mg po daily 8. Constipation - Colace 100 mg po TID - Miralax daily 9. Prophylaxis - SCD - Pepcid 20 mg po daily - Contraindications for VTC ppx 10. Dispo - TB work up in progress - Airborne isolation precautions - consult for FLO placement once stabilized DW attending <Jere Reis - Last Filed: 08/28/16 09:47> Objective - Vital Signs/Intake and Output Vital Signs (last 24 hours): Temp Pulse Resp BP Pulse Ox 98.2 F 76 20 129/72 96 08/28/16 07:51 08/28/16 07:51 08/28/16 07:51 08/28/16 07:51 08/28/16 07:51 Intake and Output: 08/28/16 08/28/16 06:59 18:59 Intake Total 480 Balance 480 - Medications Medications: Current Medications Albuterol/Ipratropium (Duoneb 3 Mg/0.5 Mg (3 Ml) Ud) 3 ml INH RQ4 [facility] Last Admin: 08/28/16 08:35 Dose: 3 ml Azithromycin (Zithromax) 500 mg PO DAILY [facility] Stop: 08/29/16 14:31 Last Admin: 08/27/16 11:33 Dose: 500 mg Calcium Acetate (Phoslo) 667 mg PO TIDCC [facility] Last Admin: 08/28/16 08:04 Dose: 667 mg Cinacalcet (Sensipar) 30 mg PO DAILY [facility] Last Admin: 08/27/16 11:31 Dose: 30 mg Diltiazem HCl (Cardizem Cd) 240 mg PO DAILY [facility] Last Admin: 08/27/16 11:33 Dose: 240 mg Docusate Sodium (Colace) 100 mg PO TID [facility] Last Admin: 08/27/16 17:24 Dose: 100 mg Guaifenesin (Mucinex La) 600 mg PO BID [facility] Last Admin: 08/27/16 17:25 Dose: 600 mg Metoprolol Tartrate (Lopressor) 50 mg PO BID [facility] Last Admin: 08/27/16 17:24 Dose: 50 mg Multivitamins (Hexavitamin) 1 tab PO DAILY [facility] Last Admin: 08/27/16 11:31 Dose: 1 tab Polyethylene Glycol (Miralax) 17 gm PO DAILY [facility] Last Admin: 08/27/16 11:32 Dose: 17 gm Promethazine HCl/Codeine (Phenergan/Codeine Oral Syrup) 5 ml PO Q4 PRN PRN Reason: Cough Last Admin: 08/27/16 01:33 Dose: 5 ml Rosuvastatin Calcium (Crestor) 5 mg PO HS [facility] Last Admin: 08/27/16 22:19 Dose: 5 mg Tamsulosin HCl (Flomax) 0.4 mg PO DAILY [facility] Last Admin: 08/27/16 11:32 Dose: 0.4 mg - Labs Labs: 08/26/16 07:03 08/26/16 07:03 Attending/Attestation - Attestation I have personally seen and examined this patient.: Yes I have fully participated in the care of the patient.: Yes I have reviewed all pertinent clinical information, including history, physical exam and plan: Yes Notes (Text): Patient with ESRD on HD, previous lymphoma treated with chemo, presented with lethargy in the setting of frequently missed HD sessions; Patient today gives history of having PET scan done recently, says his dialysis center sent him for it (previously said he hasn't followed up with oncology in several years); Patient reports cough has improved significantly; on azithromycin; being ruled out for PTB with serial sputums for AFB; getting chest CT for better characterization of granulomatous changes mentioned on CXR; Pancytopenic, underwent bone marrow biopsy today; Afib, htn; rate controlled, normotensive; Dispo: Can be discharged once AFB negative.
--- NOTE | 2016-08-27 10:39 | CP.PCM.PN ---
Subjective - Date & Time of Evaluation Date of Evaluation: 08/27/16 Time of Evaluation: 10:36 - Subjective Subjective: Pt seen and examined at bedside. Pt states that he feels well. Denies any sob, and states that his cough is decreased. Pt is for HD today. Denies any fevers, chills, chest pain, nausea and vomiting. Completed HD without any difficulty Objective - Vital Signs/Intake and Output Vital Signs (last 24 hours): Temp Pulse Resp BP Pulse Ox 98.0 F 80 20 128/75 97 08/27/16 08:25 08/27/16 08:25 08/27/16 08:25 08/27/16 08:25 08/27/16 08:25 Intake and Output: 08/27/16 08/27/16 06:59 18:59 Intake Total 150 Balance 150 - Medications Medications: Current Medications Albuterol/Ipratropium (Duoneb 3 Mg/0.5 Mg (3 Ml) Ud) 3 ml INH RQ4 [facility] Last Admin: 08/27/16 09:12 Dose: 3 ml Azithromycin (Zithromax) 500 mg PO DAILY [facility] Stop: 08/29/16 14:31 Last Admin: 08/26/16 20:37 Dose: 500 mg Calcium Acetate (Phoslo) 667 mg PO TIDCC [facility] Last Admin: 08/27/16 08:05 Dose: 667 mg Cinacalcet (Sensipar) 30 mg PO DAILY [facility] Last Admin: 08/26/16 10:18 Dose: Not Given Diltiazem HCl (Cardizem Cd) 240 mg PO DAILY [facility] Last Admin: 08/26/16 10:18 Dose: Not Given Docusate Sodium (Colace) 100 mg PO TID [facility] Last Admin: 08/26/16 17:41 Dose: 100 mg Guaifenesin (Mucinex La) 600 mg PO BID [facility] Last Admin: 08/26/16 21:58 Dose: 600 mg Metoprolol Tartrate (Lopressor) 50 mg PO BID [facility] Last Admin: 08/26/16 17:41 Dose: 50 mg Multivitamins (Hexavitamin) 1 tab PO DAILY [facility] Last Admin: 08/26/16 10:18 Dose: Not Given Polyethylene Glycol (Miralax) 17 gm PO DAILY [facility] Last Admin: 08/26/16 10:18 Dose: Not Given Promethazine HCl/Codeine (Phenergan/Codeine Oral Syrup) 5 ml PO Q4 PRN PRN Reason: Cough Last Admin: 08/27/16 01:33 Dose: 5 ml Rosuvastatin Calcium (Crestor) 5 mg PO HS [facility] Last Admin: 08/26/16 21:58 Dose: 5 mg Tamsulosin HCl (Flomax) 0.4 mg PO DAILY [facility] Last Admin: 08/26/16 10:18 Dose: Not Given - Labs Labs: 08/26/16 07:03 08/26/16 07:03 - Constitutional Appears: Non-toxic, No Acute Distress - Head Exam Head Exam: ATRAUMATIC, NORMAL INSPECTION - Eye Exam Eye Exam: EOMI, Normal appearance - ENT Exam ENT Exam: Mucous Membranes Moist, Normal Oropharynx - Respiratory Exam Respiratory Exam: absent: Rales, Rhonchi, Wheezes, NORMAL BREATHING PATTERN - Cardiovascular Exam Cardiovascular Exam: REGULAR RHYTHM, +S1, +S2. absent: JVD - GI/Abdominal Exam GI & Abdominal Exam: Soft, Normal Bowel Sounds - Extremities Exam Extremities Exam: absent: Pedal Edema, Tenderness Assessment and Plan (1) ESRD (end stage renal disease) on dialysis Status: Acute (2) COPD (chronic obstructive pulmonary disease) Status: Chronic (3) Anemia due to chronic disease treated with erythropoietin Status: Acute (4) BPH (benign prostatic hyperplasia) Status: Acute (5) Dialysis patient, noncompliant Status: Acute (6) Essential hypertension Status: Acute - Assessment and Plan (Free Text) Plan: Maintain hd schedule,next treatment 08/29 Continue current medications Isolation room per primary team, complete work up
--- NOTE | 2016-08-27 11:11 | CP.PCM.PN ---
Subjective - Date & Time of Evaluation Date of Evaluation: 08/27/16 Time of Evaluation: 11:09 - Subjective Subjective: CONDITION REMAINS SAME. CARDIAC STABLE. NO DISTRESS. Objective - Vital Signs/Intake and Output Vital Signs (last 24 hours): Temp Pulse Resp BP Pulse Ox 98.0 F 80 20 128/75 97 08/27/16 08:25 08/27/16 08:25 08/27/16 08:25 08/27/16 08:25 08/27/16 08:25 Intake and Output: 08/27/16 08/27/16 06:59 18:59 Intake Total 150 Balance 150 - Medications Medications: Current Medications Albuterol/Ipratropium (Duoneb 3 Mg/0.5 Mg (3 Ml) Ud) 3 ml INH RQ4 [facility] Last Admin: 08/27/16 09:12 Dose: 3 ml Azithromycin (Zithromax) 500 mg PO DAILY [facility] Stop: 08/29/16 14:31 Last Admin: 08/26/16 20:37 Dose: 500 mg Calcium Acetate (Phoslo) 667 mg PO TIDCC [facility] Last Admin: 08/27/16 08:05 Dose: 667 mg Cinacalcet (Sensipar) 30 mg PO DAILY [facility] Last Admin: 08/26/16 10:18 Dose: Not Given Diltiazem HCl (Cardizem Cd) 240 mg PO DAILY [facility] Last Admin: 08/26/16 10:18 Dose: Not Given Docusate Sodium (Colace) 100 mg PO TID [facility] Last Admin: 08/26/16 17:41 Dose: 100 mg Guaifenesin (Mucinex La) 600 mg PO BID [facility] Last Admin: 08/26/16 21:58 Dose: 600 mg Metoprolol Tartrate (Lopressor) 50 mg PO BID [facility] Last Admin: 08/26/16 17:41 Dose: 50 mg Multivitamins (Hexavitamin) 1 tab PO DAILY [facility] Last Admin: 08/26/16 10:18 Dose: Not Given Polyethylene Glycol (Miralax) 17 gm PO DAILY [facility] Last Admin: 08/26/16 10:18 Dose: Not Given Promethazine HCl/Codeine (Phenergan/Codeine Oral Syrup) 5 ml PO Q4 PRN PRN Reason: Cough Last Admin: 08/27/16 01:33 Dose: 5 ml Rosuvastatin Calcium (Crestor) 5 mg PO HS [facility] Last Admin: 08/26/16 21:58 Dose: 5 mg Tamsulosin HCl (Flomax) 0.4 mg PO DAILY [facility] Last Admin: 08/26/16 10:18 Dose: Not Given - Labs Labs: 08/26/16 07:03 08/26/16 07:03 - Constitutional Appears: No Acute Distress, Chronically Ill - Eye Exam Eye Exam: Normal appearance, PERRL - ENT Exam ENT Exam: Normal Exam - Respiratory Exam Respiratory Exam: Clear to Ausculation Bilateral, NORMAL BREATHING PATTERN - Cardiovascular Exam Cardiovascular Exam: REGULAR RHYTHM, +S1, +S2 - GI/Abdominal Exam GI & Abdominal Exam: Soft, Normal Bowel Sounds - Extremities Exam Extremities Exam: Full ROM, Normal Capillary Refill, Normal Inspection. absent : Joint Swelling, Pedal Edema - Back Exam Back Exam: NORMAL INSPECTION - Neurological Exam Neurological Exam: Alert, Awake, CN II-XII Intact, Normal Gait, Oriented x3 - Psychiatric Exam Psychiatric exam: Normal Affect, Normal Mood Assessment and Plan - Assessment and Plan (Free Text) Assessment: STABLE Plan: CT HD. HEM EVAL.
[2016-08-27] MEDS: Multiple Vitamins Tab PO SCH (11:31)
[2016-08-27] MEDS: guaiFENesin 600 mg ER Tab PO SCH ×2 (11:32→17:25)
[2016-08-27] MEDS: POLYETHYLENE GLYCOL 3350 17 GM/Dose PACKET PO SCH (11:32)
[2016-08-27] MEDS: diltiaZEM 240 mg/24 Hours CD Cap PO SCH (11:33)
[2016-08-27] MEDS ORDERED: Lidocaine 2% Inj (20ml) IJ ONE (16:24)
[2016-08-28] MEDS: Albuterol-Ipratrop 3 mg / 0.5 (3 ml) UD INH SCH ×6 (00:54→23:03)
--- NOTE | 2016-08-28 02:03 | CP.PCM.PN ---
Subjective - Date & Time of Evaluation Date of Evaluation: 08/28/16 Time of Evaluation: 02:01 - Subjective Subjective: Internal medicine progress note for Dr. Zacarias Christine, PGY-1 Pt S & E at bedside. Pt reports that he has continued cough, weakness, is tired. Speaking to pt regarding hospital work up- pt disclosed that he has had TB, has previously been treated for it here in [place]. Denies N/V/F/C, SOB, CP, ab pain. Is tolerating diet. Sleeping ok. Objective - Vital Signs/Intake and Output Vital Signs (last 24 hours): Temp Pulse Resp BP Pulse Ox 98.1 F 63 20 138/82 97 08/28/16 00:00 08/28/16 00:00 08/28/16 00:00 08/28/16 00:00 08/28/16 00:00 Intake and Output: 08/27/16 08/28/16 18:59 06:59 Intake Total 350 300 Balance 350 300 - Medications Medications: Current Medications Albuterol/Ipratropium (Duoneb 3 Mg/0.5 Mg (3 Ml) Ud) 3 ml INH RQ4 [facility] Last Admin: 08/28/16 00:54 Dose: 3 ml Azithromycin (Zithromax) 500 mg PO DAILY [facility] Stop: 08/29/16 14:31 Last Admin: 08/27/16 11:33 Dose: 500 mg Calcium Acetate (Phoslo) 667 mg PO TIDCC [facility] Last Admin: 08/27/16 17:25 Dose: 667 mg Cinacalcet (Sensipar) 30 mg PO DAILY [facility] Last Admin: 08/27/16 11:31 Dose: 30 mg Diltiazem HCl (Cardizem Cd) 240 mg PO DAILY [facility] Last Admin: 08/27/16 11:33 Dose: 240 mg Docusate Sodium (Colace) 100 mg PO TID [facility] Last Admin: 08/27/16 17:24 Dose: 100 mg Guaifenesin (Mucinex La) 600 mg PO BID [facility] Last Admin: 08/27/16 17:25 Dose: 600 mg Metoprolol Tartrate (Lopressor) 50 mg PO BID [facility] Last Admin: 08/27/16 17:24 Dose: 50 mg Multivitamins (Hexavitamin) 1 tab PO DAILY [facility] Last Admin: 08/27/16 11:31 Dose: 1 tab Polyethylene Glycol (Miralax) 17 gm PO DAILY [facility] Last Admin: 08/27/16 11:32 Dose: 17 gm Promethazine HCl/Codeine (Phenergan/Codeine Oral Syrup) 5 ml PO Q4 PRN PRN Reason: Cough Last Admin: 08/27/16 01:33 Dose: 5 ml Rosuvastatin Calcium (Crestor) 5 mg PO HS [facility] Last Admin: 08/27/16 22:19 Dose: 5 mg Tamsulosin HCl (Flomax) 0.4 mg PO DAILY [facility] Last Admin: 08/27/16 11:32 Dose: 0.4 mg - Labs Labs: 08/26/16 07:03 08/26/16 07:03 - Constitutional Appears: Non-toxic, No Acute Distress - Head Exam Head Exam: ATRAUMATIC, NORMAL INSPECTION, NORMOCEPHALIC - Eye Exam Eye Exam: EOMI, Normal appearance, PERRL Pupil Exam: NORMAL ACCOMODATION, PERRL - ENT Exam ENT Exam: Mucous Membranes Moist, Normal Exam - Neck Exam Neck Exam: Full ROM, Normal Inspection - Respiratory Exam Respiratory Exam: Clear to Ausculation Bilateral, NORMAL BREATHING PATTERN. absent: Accessory Muscle Use, Rales, Rhonchi, Wheezes - Cardiovascular Exam Cardiovascular Exam: REGULAR RHYTHM, +S1, +S2 - Extremities Exam Extremities Exam: Full ROM, Normal Inspection. absent: Pedal Edema - Neurological Exam Neurological Exam: Alert, Awake, CN II-XII Intact, Oriented x3 - Psychiatric Exam Psychiatric exam: Normal Affect, Normal Mood - Skin Skin Exam: Dry, Intact, Normal Color, Warm Assessment and Plan - Assessment and Plan (Free Text) Assessment: 1. Shortness of Breath - Improved today - Duoneb q6h PRN SOB - Azithromycin 500 mg PO daily (4/) - Robitussin DM 5 ml po q4H PRN cough - D-dimer 478 - VQ scan low probability of PE - Anticoagulation contraindicated due to pancytopenia - Echo w/EF 60-65% - Wells' Criteria -2 : low risk for DVT, unlikely - Legionella Negative - Mycoplasma Negative CXR: Linear atelectasis in the right midlung zone. 2 small rounded nodular densities seen within the right mid lung zone may represent nodules or granulomas. Upper lobe granulomatous changes. Bilateral paratracheal prominence which may represent productive change at the ends of the 1st ribs. Mild bilateral hilar prominence. Mild venous congestion. - Repeat CXR - Suboptimal portable study due to the patient's body habitus. No evidence of pneumonia. - FU Sputum cxr- pending - FU AFB x 3 - Quantiferon -TB test - positive - Cont airborne precautions 2. ESRD - HD MWF - Cont Phoslo - Nephro following - cont HD 3. History of Atrial fibrillation - Continued on home medications ASA 325 mg po daily and Diltiazem CD 240 mg po daily - EKG: NSR - HASBLED score = 3; correlates with 5.8% risk of major bleed- contraindication for anticoagulation - NADIRA score = 1 - Cardio following- continue current mgmt 4. Hypertension - Continue Metoprolol 50 mg po BID - Monitor 5. Hyperlipidemia - Crestor 5 mg po HS - Lipid panel: TG 162, Chol 178, LDL <30, HDL 27 6. Pancytopenia - stable - Appears to be chronic - Noted on previous admission - HIV neg - Hep A, B, C neg - HIT ab neg - Heme/Onc following, ordered multiple studies - pending 7. BPH - Continue home medication flomax 0.4 mg po daily 8. Constipation - Colace 100 mg po TID - Miralax daily 9. Prophylaxis - SCD - Pepcid 20 mg po daily - Contraindications for VTC ppx 10. Dispo - Cont current mgmt - TB work up in progress - Airborne isolation precautions - SW consult for FLO placement once stabilized DW attending
[2016-08-28] MEDS: Multiple Vitamins Tab PO SCH ×2 (11:07→11:44)
[2016-08-28] MEDS: guaiFENesin 600 mg ER Tab PO SCH ×2 (11:07→17:45)
[2016-08-28] MEDS: POLYETHYLENE GLYCOL 3350 17 GM/Dose PACKET PO SCH (11:08)
[2016-08-28] MEDS: diltiaZEM 240 mg/24 Hours CD Cap PO SCH (11:08)
--- NOTE | 2016-08-28 14:54 | CT ---
PROCEDURE: CT scan chest 08/28/2016. HISTORY: Granulomatous changes on chest radiograph. Chronic cough COMPARISON: Comparison made with chest radiograph dated 08/24/[address] scan chest dated 11/13/2015. TECHNIQUE: Contiguous helical/ transaxial sections of the chest performed in standard fashion without the use of intravenous contrast material. Additional 2 dimensional sagittal and coronal reformats provided. . Radiation dose. Total DLP = 748.43 mGy-cm. FINDINGS: Heart is enlarged. No pericardial effusion. The ascending thoracic aorta in mildly dilated measuring approximately 4.03 cm. Descending thoracic aorta measures approximately 3.2 cm. Pulmonary trunk measures approximately 3.9 cm. The several small nonspecific mediastinal lymph nodes are present. Evaluation for hilar adenopathy limited due to the lack of circulating intravenous contrast material. Central airways are midline and patent. No endobronchial lesions are identified. Small amount of air is seen intermittently throughout the esophagus. There is a tiny hiatal hernia. Slight wall thickening of the distal esophagus could be due to protrusion of gastric mucosa. Possibility of esophagitis not excluded. Re- demonstrated are linear areas of scarring associate with small calcific densities on. Findings may be due to prior exposure to a granulomatous disease process. Calcifications are also seen in the right suprahilar region possibly representing tiny calcified on lymph nodes. Mild scarring changes also noted in the medial segment right middle lobe. Slightly less exuberant scarring changes left upper lobe also associated with tiny calcifications with similar differential diagnosis. There is a small nodule of approximately 6 mm superior along the posterolateral convexity right lower lobe likely postinflammatory residua. Previously noted right-sided effusion has resolved. Atelectasis in the right upper lobe lobe also improved. Ground-glass opacity right lung base. Rule out chronic air trapping and/or pneumonitis. Minimal left basilar atelectasis. . Note is made of a somewhat elliptical shaped soft tissue pleural based masslike density in the right anterior lung base that measures approximately 7 cm trans x body 3 cm AP with Hounsfield units mid 30s of uncertain etiology (see axial series 4 image number [id number]. This focus appears to have increased in size when compared with the prior exam however the adjacent posterior rib surface appears intact. . This focus could represent chronic atelectasis -scarring or possibly chronic sequela of loculated pleural effusion ; the possibility of a mass lesion of other origin cannot be excluded. There is a 2nd similar pleural-based masslike density within the right anterior sulcus abutting the posterior right parasagittal margin of the sternum and sternocostal junction which measures approximately 4.8 trans x 2.0 cm ap x 4.7 cc . . This could represent sequela of loculated pleural fluid with chronic pleural thickening or chronic atelectasis. Followup interval could be performed to assess stability. Moderate changes of gynecomastia bilaterally. . Cholelithiasis. Splenomegaly again noted. Exuberant splenic artery calcifications. Atrophic appearing kidneys. Multilevel degenerative spondylosis of the thoracic and upper lumbar spine. IMPRESSION: Interval resolution previously noted small right-sided effusion. There are scarring changes seen in the upper lobes as well as right middle lobe associated with presumed dystrophic type calcification. Small air calcification right suprahilar region likely representing tiny calcified hilar lymph nodes. These findings suggest prior exposure to granulomatous disease process however clinical correlation recommended. Ground-glass opacity right posterior sulcus possibly representing some chronic air trapping or pneumonitis. There is a elliptical shaped pleural-based masslike density right anterior lung base which could represent sequela of chronic loculated pleural effusion or possibly a chronic atelectasis however the possibility of a mass density of other origin cannot be excluded. This focus appears to have increased in size slightly from prior study. Second elliptical shaped smooth homogeneous masslike density abutting the pleural surface the right anterior sulcus dorsal to the right parasagittal margin of the sternum and sternocostal junction. This too could represent sequela of chronic loculated pleural effusion with secondary chronic pleural thickening or chronic atelectasis. The dorsal surface of the sternum and ribs are also intact. Followup interval could be performed to assess stability. If there is a history of malignancy this patient, consider followup PET-CT scan. Cardiomegaly. Changes of gynecomastia bilaterally. Splenomegaly. Cholelithiasis. Atrophic kidneys.
--- NOTE | 2016-08-28 16:52 | CP.PCM.PN ---
Subjective - Date & Time of Evaluation Date of Evaluation: 08/28/16 Time of Evaluation: 12:45 - Subjective Subjective: CARDIAC STABLE. CRF HD. LEUCOPENIA. Objective - Vital Signs/Intake and Output Vital Signs (last 24 hours): Temp Pulse Resp BP Pulse Ox 97.6 F 67 20 137/80 96 08/28/16 16:00 08/28/16 16:00 08/28/16 16:00 08/28/16 16:00 08/28/16 16:00 Intake and Output: 08/28/16 08/28/16 06:59 18:59 Intake Total 480 300 Balance 480 300 - Medications Medications: Current Medications Albuterol/Ipratropium (Duoneb 3 Mg/0.5 Mg (3 Ml) Ud) 3 ml INH RQ4 [facility] Last Admin: 08/28/16 08:35 Dose: 3 ml Azithromycin (Zithromax) 500 mg PO DAILY [facility] Stop: 08/29/16 14:31 Last Admin: 08/28/16 11:08 Dose: 500 mg Calcium Acetate (Phoslo) 667 mg PO TIDCC [facility] Last Admin: 08/28/16 11:07 Dose: 667 mg Cinacalcet (Sensipar) 30 mg PO DAILY [facility] Last Admin: 08/28/16 11:07 Dose: 30 mg Diltiazem HCl (Cardizem Cd) 240 mg PO DAILY [facility] Last Admin: 08/28/16 11:08 Dose: 240 mg Docusate Sodium (Colace) 100 mg PO TID [facility] Last Admin: 08/28/16 13:56 Dose: 100 mg Guaifenesin (Mucinex La) 600 mg PO BID [facility] Last Admin: 08/28/16 11:07 Dose: 600 mg Metoprolol Tartrate (Lopressor) 50 mg PO BID [facility] Last Admin: 08/28/16 11:07 Dose: 50 mg Multivitamins (Hexavitamin) 1 tab PO DAILY [facility] Last Admin: 08/28/16 11:44 Dose: 1 tab Polyethylene Glycol (Miralax) 17 gm PO DAILY [facility] Last Admin: 08/28/16 11:08 Dose: 17 gm Promethazine HCl/Codeine (Phenergan/Codeine Oral Syrup) 5 ml PO Q4 PRN PRN Reason: Cough Last Admin: 08/27/16 01:33 Dose: 5 ml Rosuvastatin Calcium (Crestor) 5 mg PO HS [facility] Last Admin: 08/27/16 22:19 Dose: 5 mg Tamsulosin HCl (Flomax) 0.4 mg PO DAILY [facility] Last Admin: 08/28/16 11:07 Dose: 0.4 mg - Labs Labs: 08/26/16 07:03 08/26/16 07:03 - Constitutional Appears: No Acute Distress, Chronically Ill - Eye Exam Eye Exam: Normal appearance, PERRL - ENT Exam ENT Exam: Normal Exam - Respiratory Exam Respiratory Exam: NORMAL BREATHING PATTERN - Cardiovascular Exam Cardiovascular Exam: REGULAR RHYTHM, +S1, +S2 - GI/Abdominal Exam GI & Abdominal Exam: Soft, Normal Bowel Sounds - Back Exam Back Exam: NORMAL INSPECTION - Neurological Exam Neurological Exam: Alert, Awake, CN II-XII Intact, Normal Gait, Oriented x3 - Psychiatric Exam Psychiatric exam: Normal Affect, Normal Mood Assessment and Plan - Assessment and Plan (Free Text) Assessment: STABLE. Plan: CT PRESENT TREATMENT.
[2016-08-28] MEDS ORDERED: Cefepime IV 1 gm in Dextrose 50 ML IVPB ONE (17:00)
[2016-08-28 17:43] LABS: KAPPA/LAMBDA FREE RATIO 0.91 (0.26-1.65)
--- NOTE | 2016-08-28 20:36 | CP.PCM.PN ---
Subjective - Date & Time of Evaluation Date of Evaluation: 08/28/16 Time of Evaluation: 18:00 - Subjective Subjective: No complaints. Objective - Vital Signs/Intake and Output Vital Signs (last 24 hours): Temp Pulse Resp BP Pulse Ox 97.6 F 67 20 137/80 96 08/28/16 16:00 08/28/16 16:00 08/28/16 16:00 08/28/16 16:00 08/28/16 16:00 Intake and Output: 08/28/16 08/29/16 18:59 06:59 Intake Total 300 Balance 300 - Medications Medications: Current Medications Albuterol/Ipratropium (Duoneb 3 Mg/0.5 Mg (3 Ml) Ud) 3 ml INH RQ4 [facility] Last Admin: 08/28/16 19:42 Dose: Not Given Azithromycin (Zithromax) 500 mg PO DAILY [facility] Stop: 08/29/16 14:31 Last Admin: 08/28/16 11:08 Dose: 500 mg Calcium Acetate (Phoslo) 667 mg PO TIDCC [facility] Last Admin: 08/28/16 17:45 Dose: 667 mg Cinacalcet (Sensipar) 30 mg PO DAILY [facility] Last Admin: 08/28/16 11:07 Dose: 30 mg Diltiazem HCl (Cardizem Cd) 240 mg PO DAILY [facility] Last Admin: 08/28/16 11:08 Dose: 240 mg Docusate Sodium (Colace) 100 mg PO TID [facility] Last Admin: 08/28/16 17:44 Dose: 100 mg Guaifenesin (Mucinex La) 600 mg PO BID [facility] Last Admin: 08/28/16 17:45 Dose: 600 mg Metoprolol Tartrate (Lopressor) 50 mg PO BID [facility] Last Admin: 08/28/16 17:44 Dose: 50 mg Multivitamins (Hexavitamin) 1 tab PO DAILY [facility] Last Admin: 08/28/16 11:44 Dose: 1 tab Polyethylene Glycol (Miralax) 17 gm PO DAILY [facility] Last Admin: 08/28/16 11:08 Dose: 17 gm Promethazine HCl/Codeine (Phenergan/Codeine Oral Syrup) 5 ml PO Q4 PRN PRN Reason: Cough Last Admin: 08/27/16 01:33 Dose: 5 ml Rosuvastatin Calcium (Crestor) 5 mg PO HS [facility] Last Admin: 08/27/16 22:19 Dose: 5 mg Tamsulosin HCl (Flomax) 0.4 mg PO DAILY [facility] Last Admin: 08/28/16 11:07 Dose: 0.4 mg - Labs Labs: 08/26/16 07:03 08/26/16 07:03 - Head Exam Head Exam: ATRAUMATIC - Eye Exam Eye Exam: Normal appearance - ENT Exam ENT Exam: Mucous Membranes Dry - Respiratory Exam Respiratory Exam: NORMAL BREATHING PATTERN - Cardiovascular Exam Cardiovascular Exam: +S1, +S2 - GI/Abdominal Exam GI & Abdominal Exam: Normal Bowel Sounds - Extremities Exam Extremities Exam: Normal Inspection Assessment and Plan (1) Pancytopenia Assessment & Plan: f/u bone marrow results. Status: Acute (2) Non-Hodgkin lymphoma Status: Acute
--- NOTE | 2016-08-28 20:36 | CP.PCM.PN ---
Subjective - Date & Time of Evaluation Date of Evaluation: 08/27/16 Time of Evaluation: 18:00 - Subjective Subjective: Bone marrow aspiration and biopsy procedure Indication: Pancytopenia, hx of NHL - Time-out was called to confirm: patients name and date of , procedure, side and site of biopsy, safety procedures followed. - Performed by: self. - Informed consent: signed by patient. - Aspiration and biopsy site: [right] superior posterior iliac crest. - Patient position: [left lateral decubitus] - Preparation and technique: sterile preparation of site with [place], Chloraprep, draped to expose aspirate/biopsy area, local anesthesia with 2% lidocaine (approximately 10ml), frequent pressure application on incision to maintain hemostasis. - Tissue obtained: bone marrow aspirate and biopsy were successfully obtained in sterile manner. - Toleration of procedure and any complications: slight localized bleeding (<1ml ). Patient tolerated procedure well with minimal pain. Objective - Vital Signs/Intake and Output Vital Signs (last 24 hours): Temp Pulse Resp BP Pulse Ox 97.6 F 67 20 137/80 96 08/28/16 16:00 08/28/16 16:00 08/28/16 16:00 08/28/16 16:00 08/28/16 16:00 Intake and Output: 08/28/16 08/29/16 18:59 06:59 Intake Total 300 Balance 300 - Medications Medications: Current Medications Albuterol/Ipratropium (Duoneb 3 Mg/0.5 Mg (3 Ml) Ud) 3 ml INH RQ4 [facility] Last Admin: 08/28/16 19:42 Dose: Not Given Azithromycin (Zithromax) 500 mg PO DAILY [facility] Stop: 08/29/16 14:31 Last Admin: 08/28/16 11:08 Dose: 500 mg Calcium Acetate (Phoslo) 667 mg PO TIDCC [facility] Last Admin: 08/28/16 17:45 Dose: 667 mg Cinacalcet (Sensipar) 30 mg PO DAILY [facility] Last Admin: 08/28/16 11:07 Dose: 30 mg Diltiazem HCl (Cardizem Cd) 240 mg PO DAILY [facility] Last Admin: 08/28/16 11:08 Dose: 240 mg Docusate Sodium (Colace) 100 mg PO TID [facility] Last Admin: 08/28/16 17:44 Dose: 100 mg Guaifenesin (Mucinex La) 600 mg PO BID [facility] Last Admin: 08/28/16 17:45 Dose: 600 mg Metoprolol Tartrate (Lopressor) 50 mg PO BID [facility] Last Admin: 08/28/16 17:44 Dose: 50 mg Multivitamins (Hexavitamin) 1 tab PO DAILY [facility] Last Admin: 08/28/16 11:44 Dose: 1 tab Polyethylene Glycol (Miralax) 17 gm PO DAILY [facility] Last Admin: 08/28/16 11:08 Dose: 17 gm Promethazine HCl/Codeine (Phenergan/Codeine Oral Syrup) 5 ml PO Q4 PRN PRN Reason: Cough Last Admin: 08/27/16 01:33 Dose: 5 ml Rosuvastatin Calcium (Crestor) 5 mg PO HS [facility] Last Admin: 08/27/16 22:19 Dose: 5 mg Tamsulosin HCl (Flomax) 0.4 mg PO DAILY [facility] Last Admin: 08/28/16 11:07 Dose: 0.4 mg - Labs Labs: 08/26/16 07:03 08/26/16 07:03 Assessment and Plan (1) Pancytopenia Status: Acute (2) Non-Hodgkin lymphoma Status: Acute
[2016-08-29] MEDS: Albuterol-Ipratrop 3 mg / 0.5 (3 ml) UD INH SCH ×4 (03:13→16:30)
[2016-08-29 07:53] LABS: BASO % 0.6 % (0.0-2.0); EOS # 0.3 K/uL (0.0-0.7); EOS % 8.7 % (0.0-4.0); LYMPH # 0.7 K/uL (1.0-4.3); LYMPH % 22.4 % (20.0-40.0); MEAN CELL VOLUME 91.5 fL (80.0-94.0); MEAN CORPUSCULAR HEMOGLOBIN 30.5 pg (27.0-31.0); MEAN CORPUSCULAR HGB CONC 33.3 g/dL (33.0-37.0); MEAN PLATELET VOLUME 10.4 fL (7.2-11.7); MONO # 0.3 K/uL (0.0-0.8); MONO % 8.6 % (0.0-10.0); NRBC % 0.1 % (0.0-2.0); RED CELL DISTRIBUTION WIDTH 16.4 % (11.5-14.5); WHITE BLOOD COUNT 2.9 K/uL (4.8-10.8)
[2016-08-29 08:09] LABS: POTASSIUM 4.5 mmol/L (3.6-5.2)
[2016-08-29 08:10] LABS: ALB/GLOB RATIO 1.5 (1.0-2.1); BILIRUBIN,TOTAL 1.2 mg/dL (0.2-1.3); PHOSPHOROUS 6.9 mg/dL (2.5-4.5); TOTAL PROTEIN 6.1 g/dL (6.3-8.3)
[2016-08-29 08:11] LABS: CALCIUM 7.9 mg/dl (8.6-10.4); MAGNESIUM 2.6 mg/dL (1.6-2.3)
[2016-08-29] MEDS: POLYETHYLENE GLYCOL 3350 17 GM/Dose PACKET PO SCH (10:28)
[2016-08-29] MEDS: Multiple Vitamins Tab PO SCH (10:28)
[2016-08-29] MEDS: diltiaZEM 240 mg/24 Hours CD Cap PO SCH (10:28)
[2016-08-29] MEDS: guaiFENesin 600 mg ER Tab PO SCH (10:29)
--- NOTE | 2016-08-29 12:00 | CP.PCM.PN ---
Subjective - Date & Time of Evaluation Date of Evaluation: 08/29/16 Time of Evaluation: 11:58 - Subjective Subjective: CARDIAC STABLE. Objective - Vital Signs/Intake and Output Vital Signs (last 24 hours): Temp Pulse Resp BP Pulse Ox 97.4 F L 67 20 152/83 H 96 08/29/16 08:11 08/29/16 08:11 08/29/16 08:11 08/29/16 08:11 08/29/16 08:11 Intake and Output: 08/29/16 08/29/16 06:59 18:59 Intake Total 530 Balance 530 - Medications Medications: Current Medications Albuterol/Ipratropium (Duoneb 3 Mg/0.5 Mg (3 Ml) Ud) 3 ml INH RQ4 [facility] Last Admin: 08/29/16 08:43 Dose: 3 ml Azithromycin (Zithromax) 500 mg PO DAILY [facility] Stop: 08/29/16 14:31 Last Admin: 08/29/16 09:52 Dose: 500 mg Calcium Acetate (Phoslo) 1,334 mg PO TIDCC [facility] Cinacalcet (Sensipar) 30 mg PO DAILY [facility] Last Admin: 08/29/16 10:29 Dose: Not Given Diltiazem HCl (Cardizem Cd) 240 mg PO DAILY [facility] Last Admin: 08/29/16 10:28 Dose: Not Given Docusate Sodium (Colace) 100 mg PO TID [facility] Last Admin: 08/29/16 10:28 Dose: Not Given Guaifenesin (Mucinex La) 600 mg PO BID [facility] Last Admin: 08/29/16 10:29 Dose: Not Given Vancomycin HCl 1 gm/ Sodium (Chloride) 250 mls @ 166.7 mls/hr IVPB STAT STA Stop: 08/29/16 12:20 Cefepime HCl (Maxipime Iv 1 Gm Premix) 50 mls @ 100 mls/hr IVPB Q24H [facility] Metoprolol Tartrate (Lopressor) 50 mg PO BID [facility] Last Admin: 08/29/16 10:28 Dose: Not Given Multivitamins (Hexavitamin) 1 tab PO DAILY [facility] Last Admin: 08/29/16 10:28 Dose: Not Given Polyethylene Glycol (Miralax) 17 gm PO DAILY [facility] Last Admin: 08/29/16 10:28 Dose: Not Given Promethazine HCl/Codeine (Phenergan/Codeine Oral Syrup) 5 ml PO Q4 PRN PRN Reason: Cough Last Admin: 08/27/16 01:33 Dose: 5 ml Rosuvastatin Calcium (Crestor) 5 mg PO HS [facility] Last Admin: 08/28/16 22:35 Dose: 5 mg Tamsulosin HCl (Flomax) 0.4 mg PO DAILY [facility] Last Admin: 08/29/16 10:28 Dose: Not Given - Labs Labs: 08/29/16 07:38 08/29/16 07:38 - Constitutional Appears: No Acute Distress, Chronically Ill - Eye Exam Eye Exam: Normal appearance, PERRL - ENT Exam ENT Exam: Normal Exam - Respiratory Exam Respiratory Exam: Clear to Ausculation Bilateral, NORMAL BREATHING PATTERN - Cardiovascular Exam Cardiovascular Exam: REGULAR RHYTHM, +S1, +S2 - GI/Abdominal Exam GI & Abdominal Exam: Soft, Normal Bowel Sounds - Back Exam Back Exam: NORMAL INSPECTION - Neurological Exam Neurological Exam: Alert, Awake, CN II-XII Intact, Normal Gait, Oriented x3 Assessment and Plan - Assessment and Plan (Free Text) Assessment: CRF. HTN. Plan: CT PRESENT TREATMENT.
--- NOTE | 2016-08-29 12:00 | CP.PCM.PN ---
Subjective - Date & Time of Evaluation Date of Evaluation: 08/29/16 Time of Evaluation: 11:58 - Subjective Subjective: On dialysis now- to UF 2500ml Under isolation for possible TB Phos elevated- will increase phoslo Has been afebrile Objective - Vital Signs/Intake and Output Vital Signs (last 24 hours): Temp Pulse Resp BP Pulse Ox 97.4 F L 67 20 152/83 H 96 08/29/16 08:11 08/29/16 08:11 08/29/16 08:11 08/29/16 08:11 08/29/16 08:11 Intake and Output: 08/29/16 08/29/16 06:59 18:59 Intake Total 530 Balance 530 - Medications Medications: Current Medications Albuterol/Ipratropium (Duoneb 3 Mg/0.5 Mg (3 Ml) Ud) 3 ml INH RQ4 [facility] Last Admin: 08/29/16 08:43 Dose: 3 ml Azithromycin (Zithromax) 500 mg PO DAILY VIKY Stop: 08/29/16 14:31 Last Admin: 08/29/16 09:52 Dose: 500 mg Calcium Acetate (Phoslo) 1,334 mg PO TIDCC VIKY Cinacalcet (Sensipar) 30 mg PO DAILY [facility] Last Admin: 08/29/16 10:29 Dose: Not Given Diltiazem HCl (Cardizem Cd) 240 mg PO DAILY [facility] Last Admin: 08/29/16 10:28 Dose: Not Given Docusate Sodium (Colace) 100 mg PO TID [facility] Last Admin: 08/29/16 10:28 Dose: Not Given Guaifenesin (Mucinex La) 600 mg PO BID VIKY Last Admin: 08/29/16 10:29 Dose: Not Given Vancomycin HCl 1 gm/ Sodium (Chloride) 250 mls @ 166.7 mls/hr IVPB STAT STA Stop: 08/29/16 12:20 Cefepime HCl (Maxipime Iv 1 Gm Premix) 50 mls @ 100 mls/hr IVPB Q24H [facility]KY Metoprolol Tartrate (Lopressor) 50 mg PO BID [facility] Last Admin: 08/29/16 10:28 Dose: Not Given Multivitamins (Hexavitamin) 1 tab PO DAILY [facility] Last Admin: 08/29/16 10:28 Dose: Not Given Polyethylene Glycol (Miralax) 17 gm PO DAILY [facility] Last Admin: 08/29/16 10:28 Dose: Not Given Promethazine HCl/Codeine (Phenergan/Codeine Oral Syrup) 5 ml PO Q4 PRN PRN Reason: Cough Last Admin: 08/27/16 01:33 Dose: 5 ml Rosuvastatin Calcium (Crestor) 5 mg PO HS [facility] Last Admin: 08/28/16 22:35 Dose: 5 mg Tamsulosin HCl (Flomax) 0.4 mg PO DAILY [facility] Last Admin: 08/29/16 10:28 Dose: Not Given - Labs Labs: 08/29/16 07:38 08/29/16 07:38 - Constitutional Appears: No Acute Distress, Chronically Ill - Head Exam Head Exam: ATRAUMATIC, NORMAL INSPECTION - Eye Exam Eye Exam: EOMI, Normal appearance - Neck Exam Neck Exam: Normal Inspection. absent: Tenderness - Respiratory Exam Respiratory Exam: Clear to Ausculation Bilateral, NORMAL BREATHING PATTERN - Cardiovascular Exam Cardiovascular Exam: REGULAR RHYTHM, +S1 - GI/Abdominal Exam GI & Abdominal Exam: Soft. absent: Tenderness - Extremities Exam Extremities Exam: Normal Inspection. absent: Tenderness - Neurological Exam Neurological Exam: Awake, CN II-XII Intact - Skin Skin Exam: Dry, Warm Assessment and Plan (1) Chest pain Status: Acute (2) ESRD (end stage renal disease) on dialysis Status: Acute (3) COPD (chronic obstructive pulmonary disease) with chronic bronchitis Status: Chronic (4) Hypertension Status: Chronic - Assessment and Plan (Free Text) Plan: Same dialysis MWF with adequate UF Increase ohoslo dose r/o TB
--- NOTE | 2016-08-29 15:51 | CP.PCM.CON ---
Past Patient History - Infectious Disease Hx of Infectious Diseases: None - Past Medical History & Family History Past Medical History?: Yes - Past Social History Smoking Status: Former Smoker - CARDIAC Hx Cardiac Disorders: Yes (AFIB) Hx Hypercholesterolemia: Yes Hx Hypertension: Yes - PULMONARY Hx Chronic Obstructive Pulmonary Disease (COPD): Yes - NEUROLOGICAL Hx Neurological Disorder: No - HEENT Hx HEENT Problems: No Other/Comment: WEARS GLASSES - RENAL Hx Chronic Kidney Disease: Yes Hx Dialysis: Yes Type of Dialysis Access: KIMBERLY Hx Kidney Stones: Yes (1998) - ENDOCRINE/METABOLIC Hx Endocrine Disorders: No - HEMATOLOGICAL/ONCOLOGICAL Hx Blood Disorders: Yes Hx Anemia: Yes - INTEGUMENTARY Hx Dermatological Problems: No - MUSCULOSKELETAL/RHEUMATOLOGICAL Hx Musculoskeletal Disorders: No Hx Falls: No - GASTROINTESTINAL Hx Gastrointestinal Disorders: No - GENITOURINARY/GYNECOLOGICAL Hx Genitourinary Disorders: Yes Hx Prostate Problems: Yes - PSYCHIATRIC Hx Substance Use: No - SURGICAL HISTORY Hx Surgeries: Yes Hx Arteriovenous Shunt: Yes (right upper arm) Hx Vascular Access Device: Yes (right upper arm) Other/Comment: TURP - ANESTHESIA Hx Anesthesia: Yes Hx Anesthesia Reactions: No Hx Malignant Hyperthermia: No Meds Allergies/Adverse Reactions: Allergies Allergy/AdvReac Type Severity Reaction Status Date / Time No Known Allergies Allergy Verified 08/22/16 19:41 - Medications Medications: Current Medications Albuterol/Ipratropium (Duoneb 3 Mg/0.5 Mg (3 Ml) Ud) 3 ml INH RQ4 [facility] Last Admin: 08/29/16 13:17 Dose: Not Given Calcium Acetate (Phoslo) 1,334 mg PO TIDCC [facility] Last Admin: 08/29/16 12:35 Dose: Not Given Cinacalcet (Sensipar) 30 mg PO DAILY [facility] Last Admin: 08/29/16 10:29 Dose: Not Given Diltiazem HCl (Cardizem Cd) 240 mg PO DAILY [facility] Last Admin: 08/29/16 10:28 Dose: Not Given Docusate Sodium (Colace) 100 mg PO TID [facility] Last Admin: 08/29/16 14:32 Dose: Not Given Guaifenesin (Mucinex La) 600 mg PO BID [facility] Last Admin: 08/29/16 10:29 Dose: Not Given Cefepime HCl (Maxipime Iv 1 Gm Premix) 50 mls @ 100 mls/hr IVPB Q24H [facility] Metoprolol Tartrate (Lopressor) 50 mg PO BID [facility] Last Admin: 08/29/16 10:28 Dose: Not Given Multivitamins (Hexavitamin) 1 tab PO DAILY [facility] Last Admin: 08/29/16 10:28 Dose: Not Given Polyethylene Glycol (Miralax) 17 gm PO DAILY [facility] Last Admin: 08/29/16 10:28 Dose: Not Given Promethazine HCl/Codeine (Phenergan/Codeine Oral Syrup) 5 ml PO Q4 PRN PRN Reason: Cough Last Admin: 08/27/16 01:33 Dose: 5 ml Rosuvastatin Calcium (Crestor) 5 mg PO HS [facility] Last Admin: 08/28/16 22:35 Dose: 5 mg Tamsulosin HCl (Flomax) 0.4 mg PO DAILY [facility] Last Admin: 08/29/16 10:28 Dose: Not Given Results - Vital Signs Recent Vital Signs: Last Vital Signs Temp 97.4 F L 08/29/16 08:11 Pulse 67 08/29/16 08:11 Resp 20 08/29/16 08:11 BP 152/83 H 08/29/16 08:11 Pulse Ox 96 08/29/16 08:11 - Labs Result Diagrams: 08/29/16 07:38 08/29/16 07:38 Labs: Laboratory Results - last 24 hr 08/25/16 08/29/16 07:06 07:38 WBC 2.9 L RBC 3.60 L Hgb 11.0 L Hct 33.0 L MCV 91.5 MCH 30.5 MCHC 33.3 RDW 16.4 H Plt Count 65 L MPV 10.4 Neut % (Auto) 59.7 Lymph % (Auto) 22.4 [place] % (Auto) 8.6 Eos % (Auto) 8.7 H Baso % (Auto) 0.6 Neut # 1.8 Lymph # 0.7 L [place] # 0.3 Eos # 0.3 Baso # 0.0 Differential Comment Sodium 134 Potassium 4.5 Chloride 90 L Carbon Dioxide 25 Anion Gap 24 H BUN 64 H Creatinine 9.5 H* Est GFR ( Amer) 7 Est GFR (Non-Af Amer) 6 Random Glucose 85 Calcium 7.9 L Phosphorus 6.9 H Magnesium 2.6 H Total Bilirubin 1.2 AST 30 ALT 32 Alkaline Phosphatase 46 Total Protein 6.1 L Albumin 3.6 Globulin 2.4 Albumin/Globulin Ratio 1.5 [place]/Lambda Light Chain Free [place] Light Chains 111.0 H Free [place]ambda Light Chain 121.4 H Free [place]/Lambda Ratio 0.91
--- NOTE | 2016-08-29 16:05 | CP.PCM.DIS ---
<Renea Christine - Last Filed: 08/29/16 16:19> Provider - Provider Date of Admission: 08/22/16 22:53 Attending physician: Dena Landry DO Primary care physician: Unknown Consults: Cardio- [place] ID- Suzette Nephro- Gus-Claudio Heme/onc- [place] Time Spent in preparation of Discharge (in minutes): 60 Diagnosis - Discharge Diagnosis (1) History of treatment for tuberculosis Status: Acute (2) History of tuberculosis Status: Acute Hospital Course - Lab Results Lab Results: Micro Results 08/26/16 10:15 Sputum Gram Stain - Final 08/26/16 10:15 Sputum Sputum Culture - Final Pseudomonas Aeruginosa Yeast Species 08/24/16 Unknown Urine,Random Urine Culture - Final No Growth (<1,000 CFU/ML) Most Recent Lab Values WBC 2.9 K/uL (4.8-10.8) L 08/29/16 07:38 RBC 3.60 Mil/uL (4.40-5.90) L 08/29/16 07:38 Hgb 11.0 g/dL (12.0-18.0) L 08/29/16 07:38 Hct 33.0 % (35.0-51.0) L 08/29/16 07:38 MCV 91.5 fL (80.0-94.0) 08/29/16 07:38 MCH 30.5 pg (27.0-31.0) 08/29/16 07:38 MCHC 33.3 g/dL (33.0-37.0) 08/29/16 07:38 RDW 16.4 % (11.5-14.5) H 08/29/16 07:38 Plt Count 65 K/uL (130-400) L 08/29/16 07:38 MPV 10.4 fL (7.2-11.7) 08/29/16 07:38 Neut % (Auto) 59.7 % (50.0-75.0) 08/29/16 07:38 Lymph % (Auto) 22.4 % (20.0-40.0) 08/29/16 07:38 [place] % (Auto) 8.6 % (0.0-10.0) 08/29/16 07:38 Eos % (Auto) 8.7 % (0.0-4.0) H 08/29/16 07:38 Baso % (Auto) 0.6 % (0.0-2.0) 08/29/16 07:38 Neut # 1.8 K/uL (1.8-7.0) 08/29/16 07:38 Lymph # 0.7 K/uL (1.0-4.3) L 08/29/16 07:38 [place] # 0.3 K/uL (0.0-0.8) 08/29/16 07:38 Eos # 0.3 K/uL (0.0-0.7) 08/29/16 07:38 Baso # 0.0 K/uL (0.0-0.2) 08/29/16 07:38 Differential Comment 08/29/16 07:38 Retic Count 0.5 % (0.5-1.5) 08/25/16 06:45 D-Dimer, Quantitative 478 ng/mlDDU (0-243) H 08/22/16 20:39 Hep-Vicki Thrombocytopen Negative (Negative) 08/24/16 11:21 Sodium 134 mmol/L (132-148) 08/29/16 07:38 Potassium 4.5 mmol/L (3.6-5.2) 08/29/16 07:38 Chloride 90 mmol/L (98-107) L 08/29/16 07:38 Carbon Dioxide 25 mmol/L (22-30) 08/29/16 07:38 Anion Gap 24 (10-20) H 08/29/16 07:38 BUN 64 mg/dL (9-20) H 08/29/16 07:38 Creatinine 9.5 MG/DL (0.8-1.5) H* 08/29/16 07:38 Est GFR ( Amer) 7 08/29/16 07:38 Est GFR (Non-Af Amer) 6 08/29/16 07:38 POC Glucose (mg/dL) 91 mg/dL (65-110) 08/22/16 20:37 Random Glucose 85 mg/dL (75-110) 08/29/16 07:38 Hemoglobin A1c 5.7 % (4.2-6.5) 08/23/16 06:59 Calcium 7.9 mg/dl (8.6-10.4) L 08/29/16 07:38 Phosphorus 6.9 mg/dL (2.5-4.5) H 08/29/16 07:38 Magnesium 2.6 mg/dL (1.6-2.3) H 08/29/16 07:38 Ferritin 2610.0 ng/mL 08/25/16 06:45 Total Bilirubin 1.2 mg/dL (0.2-1.3) 08/29/16 07:38 AST 30 U/L (17-59) 08/29/16 07:38 ALT 32 U/L (21-72) 08/29/16 07:38 Alkaline Phosphatase 46 U/L (38-126) 08/29/16 07:38 Troponin I 0.1040 ng/mL (0.00-0.120) 08/22/16 20:39 Total Protein 6.1 g/dL (6.3-8.3) L 08/29/16 07:38 Total Protein (PEP) 6.1 g/dL (6.1-8.1) 08/25/16 07:06 Albumin 3.6 g/dL (3.5-5.0) 08/29/16 07:38 Albumin (PEP) 3.6 g/dL (3.8-4.8) L 08/25/16 07:06 Globulin 2.4 gm/dL (2.2-3.9) 08/29/16 07:38 Albumin/Globulin Ratio 1.5 (1.0-2.1) 08/29/16 07:38 Drupm-9-Ldfbnbaun 0.4 g/dL (0.2-0.3) H 08/25/16 07:06 Poibi-9-Tdqwwoeoo 0.9 g/dL (0.5-0.9) 08/25/16 07:06 Fzza-4-Gyjuihjt 0.3 g/dL (0.4-0.6) L 08/25/16 07:06 Yvmy-4-Mhouyunc 0.3 g/dL (0.2-0.5) 08/25/16 07:06 Gamma Globulins 0.6 g/dL (0.8-1.7) L 08/25/16 07:06 Abnorm Protein Band 1 TEST NOT PERFORMED 08/25/16 07:06 Abnorm Protein Band 2 TEST NOT PERFORMED 08/25/16 07:06 Abnorm Protein Band 3 TEST NOT PERFORMED 08/25/16 07:06 Triglycerides 162 mg/dL (0-149) H D 08/23/16 06:59 Cholesterol 78 mg/dL (0-199) 08/23/16 06:59 LDL Cholesterol Direct < 30 mg/dL (0-129) 08/23/16 06:59 HDL Cholesterol 27 mg/dL (30-70) L 08/23/16 06:59 Vitamin B12 857 pg/mL (239-931) 08/25/16 06:45 Folate > 20.0 ng/mL 08/25/16 06:45 Thyroxine (T4) 6.33 ug/dL (5.5-11.0) 08/23/16 06:59 TSH 3rd Generation 1.13 mIU/L (0.46-4.68) 08/23/16 06:59 Urine Color Yellow (YELLOW) 08/24/16 18:18 Urine Clarity Hazy (Clear) 08/24/16 18:18 Urine pH 8.0 (5.0-8.0) 08/24/16 18:18 Ur Specific [place] 1.012 (1.003-1.030) 08/24/16 18:18 Urine Protein 3+ mg/dL (NEGATIVE) H 08/24/16 18:18 Urine Glucose (UA) 2+ mg/dL (Normal) H 08/24/16 18:18 Urine Ketones Negative mg/dL (NEGATIVE) 08/24/16 18:18 Urine Blood Negative (NEGATIVE) 08/24/16 18:18 Urine Nitrate Negative (NEGATIVE) 08/24/16 18:18 Urine Bilirubin Negative (NEGATIVE) 08/24/16 18:18 Urine Urobilinogen Normal mg/dL (0.2-1.0) 08/24/16 18:18 Ur Leukocyte Esterase Neg Tien/uL (Negative) 08/24/16 18:18 Urine WBC (Auto) 1 /hpf (0-5) 08/24/16 18:18 Urine RBC (Auto) < 1 /hpf (0-3) 08/24/16 18:18 Ur Squamous Epith Cells 1 /hpf (0-5) 08/24/16 18:18 Urine Bacteria Rare (<OCC) 08/24/16 18:18 ENMANUEL & SPEP Interp See note (()) 08/25/16 07:06 Serum Immunofixation See note (()) 08/25/16 07:06 Heparin-induced Plt Ab Negative (Negative) 08/24/16 11:21 [place]/Lambda Light Chain (()) 08/25/16 07:06 Free [place] Light Chains 111.0 mg/L (3.3-19.4) H 08/25/16 07:06 Free Lambda Light Chain 121.4 mg/L (5.7-26.3) H 08/25/16 07:06 Free [place]/Lambda Ratio 0.91 (0.26-1.65) 08/25/16 07:06 Hepatitis A IgM Ab Negative (NEGATIVE) 08/24/16 11:21 Hep Bs Antigen Negative (NEGATIVE) 08/24/16 11:21 Hep B Core IgM Ab Negative (NEGATIVE) 08/24/16 11:21 Hepatitis C Antibody Negative (NEGATIVE) 08/24/16 11:21 HIV 1&2 Antibody Screen Negative (NEGATIVE) 08/24/16 11:21 Ur L.pneumophila Ag Negative (NEGATIVE) 08/24/16 11:21 Mycoplasma pneumon IgM Negative (NEGATIVE) 08/24/16 11:21 TB Test (QFT) Nil 0.09 IU/mL (()) 08/26/16 07:03 TB Test Mitogen - Nil >10.00 IU/mL (()) 08/26/16 07:03 TB Test TB - Nil 1.64 IU/mL (()) 08/26/16 07:03 TB Test (QFT) Positive (Negative) H 08/26/16 07:03 - Hospital Course Hospital Course: Pt is a 61M with medical history of ESRD on hemodialysis MWF, COPD, HTN, atrial fibrillation, HLD, BPH, flomax, pancytopenia who presented to the ED with persistent cough, dizziness and weakness for 3 days. He notes cough is worse at night and productive of yellow phlegm. He denies sick contacts and states he had pneumonia and flu vaccine. Patient started taking cough syrup and Azithromycin 500 mg po today prescribed by his primary care physician. He also states he had chills yesterday. Patient admits to mild shortness of breath but denies chest pain. Patient missed dialysis today and states he has not followed up with his dentist/owner in some time. He denies nausea, vomiting, abdominal pain, diarrhea but admits to chronic constipation. Patient admitted med-surg. Patient given dialysis, worked up for TB due to findings on Chest x-ray and CT chest. After work up initiated, patient reported that he had previously had TB and was treated for it 2x. Patient seen/ evaluated by hematology/oncology due to pancytopenia with appropriate work up initiated. Patient later revealed history of lymphoma. Patient seen/evaluated by ID with recommendation for patient to be treated with Cipro for Pseudomonas in the sputum. Patient seen/evaluated by nephro with recommendation to continue dialysis and initiation of medication for hyperphosphatemia. Patient has long history of non-compliance with dialysis attendance, during duration of hospitalization - it was reiterated to patient multiple times how important it is for him to attend dialysis 3x per week regularly. Patient seen/evaluated by cardiology due to history of afib. During hospitalization, patient's initial weakness, dizziness, and cough improved. Patient stable, cleared for discharge home with instructions to attend dialysis regularly, follow up with primary care provider and establish care with a cops/oncologist for history of lymphoma. Diagnoses: Uremia, non compliance with dialysis, pneumonia, history of TB, history of lymphoma, ESRD on HD, COPD exacerbation, Chronic CHF, hx of Afib, BPH , pancytopenia - Date & Time of H&P Date of H&P: 08/22/16 Time of H&P: 23:17 Discharge Exam - Head Exam Head Exam: ATRAUMATIC, NORMAL INSPECTION, NORMOCEPHALIC - Eye Exam Eye Exam: EOMI, Normal appearance, PERRL Pupil Exam: NORMAL ACCOMODATION, PERRL - ENT Exam ENT Exam: Mucous Membranes Moist, Normal Exam - Neck Exam Neck exam: Full Rom, Normal Inspection - Respiratory Exam Respiratory Exam: Clear to PA & Lateral, NORMAL BREATHING PATTERN, UNREMARKABLE. absent: Rales, Rhonchi, Wheezes, Respiratory Distress, Stridor - Cardiovascular Exam Cardiovascular Exam: REGULAR RHYTHM, +S1, +S2 - GI/Abdominal Exam GI & Abdominal Exam: Normal Bowel Sounds, Soft, Unremarkable. absent: Tenderness - Extremities Exam Extremities exam: full ROM, normal inspection - Back Exam Back exam: NORMAL INSPECTION - Neurological Exam Neurological exam: Alert, CN II-XII Intact, Oriented x3 - Psychiatric Exam Psychiatric exam: Normal Affect, Normal Mood - Skin Skin Exam: Dry, Intact, Normal Color, Warm Discharge Plan - Discharge Medications Prescriptions: Ciprofloxacin HCl [Cipro] 500 mg PO DAILY #7 tablet - Follow Up Plan Condition: GOOD Disposition: HOME/ ROUTINE Instructions: Renal Failure Diet (DC), Bone Marrow Failure in Children (DC), Bone Marrow Failure in Children (GEN), Weakness (GEN), Heart Failure (DC), Heart Failure (GEN), Pacemaker (DC), Pacemaker (GEN), Pulmonary Edema (DC), Pulmonary Edema (GEN), Ascites (DC), Ascites (GEN) Additional Instructions: Patient is cleared for discharge by Dr. Reis. Please follow up with your primary care physician in 1 week after discharge. If you do not have a primary care physician, please follow up in the [facility] to establish care. Please make sure to attend dialysis on Mondays, Wednesdays, and Fridays as discussed during your hospitalization. You are being discharged on an antibiotic because you have a lung infection- please take the whole course of antibiotics. Please follow up with Dr. Brantley for the results of your hematological work up and management for your history of lymphoma. Please take all medications as prescribed. If you have a recurrence of symptoms, please return to the hospital. <Jere Reis - Last Filed: 08/29/16 19:44> Provider - Provider Date of Admission: 08/22/16 22:53 Attending physician: Dena Landry, DO Hospital Course - Lab Results Lab Results: Micro Results 08/26/16 10:15 Sputum Gram Stain - Final 08/26/16 10:15 Sputum Sputum Culture - Final Pseudomonas Aeruginosa Yeast Species 08/24/16 Unknown Urine,Random Urine Culture - Final No Growth (<1,000 CFU/ML) Most Recent Lab Values WBC 2.9 K/uL (4.8-10.8) L 08/29/16 07:38 RBC 3.60 Mil/uL (4.40-5.90) L 08/29/16 07:38 Hgb 11.0 g/dL (12.0-18.0) L 08/29/16 07:38 Hct 33.0 % (35.0-51.0) L 08/29/16 07:38 MCV 91.5 fL (80.0-94.0) 08/29/16 07:38 MCH 30.5 pg (27.0-31.0) 08/29/16 07:38 MCHC 33.3 g/dL (33.0-37.0) 08/29/16 07:38 RDW 16.4 % (11.5-14.5) H 08/29/16 07:38 Plt Count 65 K/uL (130-400) L 08/29/16 07:38 MPV 10.4 fL (7.2-11.7) 08/29/16 07:38 Neut % (Auto) 59.7 % (50.0-75.0) 08/29/16 07:38 Lymph % (Auto) 22.4 % (20.0-40.0) 08/29/16 07:38 [place] % (Auto) 8.6 % (0.0-10.0) 08/29/16 07:38 Eos % (Auto) 8.7 % (0.0-4.0) H 08/29/16 07:38 Baso % (Auto) 0.6 % (0.0-2.0) 08/29/16 07:38 Neut # 1.8 K/uL (1.8-7.0) 08/29/16 07:38 Lymph # 0.7 K/uL (1.0-4.3) L 08/29/16 07:38 [place] # 0.3 K/uL (0.0-0.8) 08/29/16 07:38 Eos # 0.3 K/uL (0.0-0.7) 08/29/16 07:38 Baso # 0.0 K/uL (0.0-0.2) 08/29/16 07:38 Differential Comment 08/29/16 07:38 Retic Count 0.5 % (0.5-1.5) 08/25/16 06:45 D-Dimer, Quantitative 478 ng/mlDDU (0-243) H 08/22/16 20:39 Hep-Vicki Thrombocytopen Negative (Negative) 08/24/16 11:21 Sodium 134 mmol/L (132-148) 08/29/16 07:38 Potassium 4.5 mmol/L (3.6-5.2) 08/29/16 07:38 Chloride 90 mmol/L (98-107) L 08/29/16 07:38 Carbon Dioxide 25 mmol/L (22-30) 08/29/16 07:38 Anion Gap 24 (10-20) H 08/29/16 07:38 BUN 64 mg/dL (9-20) H 08/29/16 07:38 Creatinine 9.5 MG/DL (0.8-1.5) H* 08/29/16 07:38 Est GFR ( Amer) 7 08/29/16 07:38 Est GFR (Non-Af Amer) 6 08/29/16 07:38 POC Glucose (mg/dL) 91 mg/dL (65-110) 08/22/16 20:37 Random Glucose 85 mg/dL (75-110) 08/29/16 07:38 Hemoglobin A1c 5.7 % (4.2-6.5) 08/23/16 06:59 Calcium 7.9 mg/dl (8.6-10.4) L 08/29/16 07:38 Phosphorus 6.9 mg/dL (2.5-4.5) H 08/29/16 07:38 Magnesium 2.6 mg/dL (1.6-2.3) H 08/29/16 07:38 Ferritin 2610.0 ng/mL 08/25/16 06:45 Total Bilirubin 1.2 mg/dL (0.2-1.3) 08/29/16 07:38 AST 30 U/L (17-59) 08/29/16 07:38 ALT 32 U/L (21-72) 08/29/16 07:38 Alkaline Phosphatase 46 U/L (38-126) 08/29/16 07:38 Troponin I 0.1040 ng/mL (0.00-0.120) 08/22/16 20:39 Total Protein 6.1 g/dL (6.3-8.3) L 08/29/16 07:38 Total Protein (PEP) 6.1 g/dL (6.1-8.1) 08/25/16 07:06 Albumin 3.6 g/dL (3.5-5.0) 08/29/16 07:38 Albumin (PEP) 3.6 g/dL (3.8-4.8) L 08/25/16 07:06 Globulin 2.4 gm/dL (2.2-3.9) 08/29/16 07:38 Albumin/Globulin Ratio 1.5 (1.0-2.1) 08/29/16 07:38 Cyrlz-7-Fytyjmqer 0.4 g/dL (0.2-0.3) H 08/25/16 07:06 Noqwh-5-Sgbdanzsq 0.9 g/dL (0.5-0.9) 08/25/16 07:06 Awpj-5-Vxprcytx 0.3 g/dL (0.4-0.6) L 08/25/16 07:06 Krdq-7-Wbpqrsnw 0.3 g/dL (0.2-0.5) 08/25/16 07:06 Gamma Globulins 0.6 g/dL (0.8-1.7) L 08/25/16 07:06 Abnorm Protein Band 1 TEST NOT PERFORMED 08/25/16 07:06 Abnorm Protein Band 2 TEST NOT PERFORMED 08/25/16 07:06 Abnorm Protein Band 3 TEST NOT PERFORMED 08/25/16 07:06 Triglycerides 162 mg/dL (0-149) H D 08/23/16 06:59 Cholesterol 78 mg/dL (0-199) 08/23/16 06:59 LDL Cholesterol Direct < 30 mg/dL (0-129) 08/23/16 06:59 HDL Cholesterol 27 mg/dL (30-70) L 08/23/16 06:59 Vitamin B12 857 pg/mL (239-931) 08/25/16 06:45 Folate > 20.0 ng/mL 08/25/16 06:45 Thyroxine (T4) 6.33 ug/dL (5.5-11.0) 08/23/16 06:59 TSH 3rd Generation 1.13 mIU/L (0.46-4.68) 08/23/16 06:59 Urine Color Yellow (YELLOW) 08/24/16 18:18 Urine Clarity Hazy (Clear) 08/24/16 18:18 Urine pH 8.0 (5.0-8.0) 08/24/16 18:18 Ur Specific [place] 1.012 (1.003-1.030) 08/24/16 18:18 Urine Protein 3+ mg/dL (NEGATIVE) H 08/24/16 18:18 Urine Glucose (UA) 2+ mg/dL (Normal) H 08/24/16 18:18 Urine Ketones Negative mg/dL (NEGATIVE) 08/24/16 18:18 Urine Blood Negative (NEGATIVE) 08/24/16 18:18 Urine Nitrate Negative (NEGATIVE) 08/24/16 18:18 Urine Bilirubin Negative (NEGATIVE) 08/24/16 18:18 Urine Urobilinogen Normal mg/dL (0.2-1.0) 08/24/16 18:18 Ur Leukocyte Esterase Neg Tien/uL (Negative) 08/24/16 18:18 Urine WBC (Auto) 1 /hpf (0-5) 08/24/16 18:18 Urine RBC (Auto) < 1 /hpf (0-3) 08/24/16 18:18 Ur Squamous Epith Cells 1 /hpf (0-5) 08/24/16 18:18 Urine Bacteria Rare (<OCC) 08/24/16 18:18 ENMANUEL & SPEP Interp See note (()) 08/25/16 07:06 Serum Immunofixation See note (()) 08/25/16 07:06 Heparin-induced Plt Ab Negative (Negative) 08/24/16 11:21 [place]/Lambda Light Chain (()) 08/25/16 07:06 Free [place] Light Chains 111.0 mg/L (3.3-19.4) H 08/25/16 07:06 Free Lambda Light Chain 121.4 mg/L (5.7-26.3) H 08/25/16 07:06 Free [place]/Lambda Ratio 0.91 (0.26-1.65) 08/25/16 07:06 Hepatitis A IgM Ab Negative (NEGATIVE) 08/24/16 11:21 Hep Bs Antigen Negative (NEGATIVE) 08/24/16 11:21 Hep B Core IgM Ab Negative (NEGATIVE) 08/24/16 11:21 Hepatitis C Antibody Negative (NEGATIVE) 08/24/16 11:21 HIV 1&2 Antibody Screen Negative (NEGATIVE) 08/24/16 11:21 Ur L.pneumophila Ag Negative (NEGATIVE) 08/24/16 11:21 Mycoplasma pneumon IgM Negative (NEGATIVE) 08/24/16 11:21 TB Test (QFT) Nil 0.09 IU/mL (()) 08/26/16 07:03 TB Test Mitogen - Nil >10.00 IU/mL (()) 08/26/16 07:03 TB Test TB - Nil 1.64 IU/mL (()) 08/26/16 07:03 TB Test (QFT) Positive (Negative) H 08/26/16 07:03 Attending/Attestation - Attestation I have personally seen and examined this patient.: Yes I have fully participated in the care of the patient.: Yes I have reviewed all pertinent clinical information, including history, physical exam and plan: Yes Notes (Text): Patient with ESRD on HD, previous lymphoma, previously treated TB x 2, admitted with lethargy in the setting of frequently missed HD sessions; Patient also found to be pancytopenic; heme consulted and bone marrow biopsy done; patient to f/u in clinic; Patient also complained of cough and was initially put on azithromycin; CXR showed granulomatous changes and so chest CT was done to look for evidence of TB ; findings were consistent with old granulomatous disease; there were, however, two pleural based mass like lesions seen in R lung, recommendation was to consider PET scan (which patient says he recently had); ID was consulted due to concern for acitve TB; however, as patient's cough improved with antibiotics, and sputum culture came back positive for Pseudomonas (melara-sensitive), decision was made to not pursue TB any further; patient is being discharged on 7 days of cipro for Pseudomonas; Patient is medically stable for d/c home and should f/u with his regularly scheduled HD sessions (patient counseled on regular adherence), his PCP and hematology. 08/29/16 19:35
[2016-08-29] MEDS ORDERED: Cefepime IV 1 gm in Dextrose 50 ML IVPB SCH (17:00)
[2016-08-29 17:09] VITALS: PULSE 73; RESP 18; TEMP 97.5
[2016-08-29 17:27] VITALS: O2SAT 97
--- NOTE | 2016-08-29 17:27 | CON ---
DATE: 08/29/2016 REQUESTING PHYSICIAN: Dr. Landry. HISTORY OF PRESENT ILLNESS: This patient is a 61-year-old male. He has a history of end-stage renal disease, COPD, hypertension, atrial fibrillation, hyperlipidemia, BP, pancytopenia. He has history of lymphoma in the past. He says 6 months he is tumor free. He came in with cough, worse at night, productive of yellowish phlegm. 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 He was admitted here 08/22. He has been on medications, Zithromax, but it was not helping him. He also had chills, shortness of breath and cough, weakness, dizziness, ended up here. He is in isolation. He had no nausea, vomiting, abdominal pain, diarrhea, or chronic constipation. He has history of TB in the past, was treated he says twice, once in his country and once here. MEDICATIONS: He is on metoprolol at home, atorvastatin, Cardizem, aspirin, Spiriva, Ventolin, Flomax , Colace. FAMILY HISTORY: Mother has hypertension. Father has hypertension. PAST SURGICAL HISTORY: Kidney stone removal. SOCIAL HISTORY: He has not smoked for 18 years, but he is a former smoker 27 years he smoked. He sa ys he was a heavy smoker before. Denies alcohol or drug abuse. 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 REVIEW OF SYSTEMS: He denied any fevers at home. He did say he had yellowish whitish thick phlegm. Denies any sore throat. No difficulty swallowing. No chest pain now, no shortness of breath. Did have cough and dyspnea and change in color when he came in. He has also history of constipation, no diarrhea. He has been here he says almost a week. Denies any urinary problems. He is a dialysis pa tient and no rashes. No headaches. No joint pains reported. MEDICATIONS: At the present time, he is on DuoNeb, PhosLo, we had started Maxipime yesterday. He is on Sensipar, Cardizem ____, Colace, Mucinex, Lopressor, hexavitamin, MiraLax, Phenergan, Crestor and Flomax. PHYSICAL EXAMINATION: VITAL SIGNS: I find his temperature is 97.4, pulse is 67, blood pressure 152/83. HEENT: Head is atraumatic, normocephalic. NECK: Supple. LUNGS: Clear. Occasional rhonchi or wheeze. HEART: S1, S2 regular. ABDOMEN: Soft, nontender, no guarding, no rigidity present. EXTREMITIES: No edema, clubbing, or cyanosis at this time. LABORATORY DATA: Noted. Labs show white count is 2.9, hemoglobin is 11.0, hematocrit 33.0, platelet count is 65, low. He has pancytopenia, most likely needs to be seen. He has ____ and lambda, but n eeds to follow with heme/onc. Labs show white count is 2.9, hemoglobin 11, hematocrit 33.0, platelet count is 65, is better now. Sodium is 134, potassium 4.5, chloride 90, anion gap is 24, BUN is 64. He is a renal dialysis patient. LFTs are unremarkable. I saw the report of his V/Q scan was negati ve. IMPRESSION: Has interval resolution of previously noted small right effusion. There is scarring donato nges in the upper lobe as well as right middle lobe associated with presumed dystrophic type calcifi cation and small area of calcification representing tiny calcified hilar lymph node suggestive of edward or exposure to granulomatous disease and ground glass opacity right posterior cell also presenting ch ronic air trapping or pneumonitis. There is elliptical shape pleural based mass-like density right a nterior lung mass which could be chronic loculated or possible chronic atelectasis. If there is a hi story of malignancy in this patient, consider followup PET scan. He has cardiomegaly, changes of manager electrical ecomastia, splenomegaly, cholelithiasis, atrophic kidney. So at this time I think all these changes are from the previous time and he has had TB. He says he h as had lymphoma and he has pancytopenia. He definitely will be following with the coffee host. At this time his sputum culture came out positive for Pseudomonas and yeast and the pseudomonas is sensi tive to Cipro and he is a dialysis patient, so should get Cipro 500 once a day for 7 days and follow with renal as well as coffee host and discontinue the isolation. Levon Bradford MD cc: [id number] TT: 08/29/2016 17:26:56 Confirmation # [id number] Dictation # [id number] jn
[2016-08-29 17:46] VITALS: BP 136/67
[2016-08-29 19:44] LABS: UFH SRA RESULT Negative (Negative)
== END 2016-08-29 19:30 | disposition home or self-care (01) | DRG 88 ==
LOC: C.ER 19:32 → C.9E 22:13 → C.3T 22:42 → OBSVTOIN 22:53 → C.3T 08-25 20:16
PROVIDERS: ADMIT Hospitalist; ATTEND Hospitalist
PROC: 5A1D60Z (ICD-10-PCS; principal; 2016-08-23)
DX: J44.0 Chronic obstructive pulmonary disease with (acute) lower respiratory infection (principal); D61.818 Other pancytopenia; I12.0 Hypertensive chronic kidney disease with stage 5 chronic kidney disease or end stage renal disease; N18.6 End stage renal disease; I48.91 Unspecified atrial fibrillation; J98.11 Atelectasis; E78.00 Pure hypercholesterolemia, unspecified; K59.09 Other constipation; N40.0 Benign prostatic hyperplasia without lower urinary tract symptoms; N62 Hypertrophy of breast; Z86.11 Personal history of tuberculosis; Z87.891 Personal history of nicotine dependence; Z91.19 Patient's noncompliance with other medical treatment and regimen; Z92.21 Personal history of antineoplastic chemotherapy; Z99.2 Dependence on renal dialysis; Z85.72 Personal history of non-Hodgkin lymphomas; Z91.15 Patient's noncompliance with renal dialysis

== ENCOUNTER 2016-09-09 17:09 | Inpatient (IN) | payer MEDICAID ==
[2016-09-09 17:09] VITALS: PULSE 140; BMI 26.8
[2016-09-09 18:02] LABS: BASO % 0.9 % (0.0-2.0); EOS # 0.1 K/uL (0.0-0.7); EOS % 4.4 % (0.0-4.0); HEMATOCRIT 28.8 % (35.0-51.0); LYMPH # 0.4 K/uL (1.0-4.3); LYMPH % 17.7 % (20.0-40.0); MEAN CORPUSCULAR HEMOGLOBIN 30.7 pg (27.0-31.0); MEAN CORPUSCULAR HGB CONC 32.7 g/dL (33.0-37.0); MEAN PLATELET VOLUME 10.7 fL (7.2-11.7); MONO # 0.2 K/uL (0.0-0.8); WHITE BLOOD COUNT 2.4 K/uL (4.8-10.8)
[2016-09-09 18:06] LABS: POTASSIUM 4.5 mmol/L (3.6-5.2)
[2016-09-09 18:08] LABS: ALB/GLOB RATIO 1.6 (1.0-2.1); BILIRUBIN,TOTAL 0.5 mg/dL (0.2-1.3); TOTAL PROTEIN 5.9 g/dL (6.3-8.3)
[2016-09-09 18:09] LABS: CALCIUM 9.2 mg/dl (8.6-10.4)
[2016-09-09 18:21] LABS: TROPONIN I 0.027 ng/mL (0.00-0.120)
--- NOTE | 2016-09-09 20:05 | C.PDOC ---
History Of Present Illness 61 year old male presents to the ED after being referred from the dialysis center for a malfunctioning right arm AV fistula. Patient goes to dialysis on MWF and notes he missed his Monday session. He has no physical complaints at this time. Time Seen by Provider: 09/09/16 17:40 Chief Complaint (Nursing): Vascular Access Device Problem History Per: Patient History/Exam Limitations: no limitations Onset/Duration Of Symptoms: Hrs Current Symptoms Are (Timing): Still Present Severity: Mild Past Medical History Reviewed: Historical Data, Nursing Documentation, Vital Signs Vital Signs: Last Vital Signs Temp 97.4 F L 09/09/16 17:14 Pulse 71 09/09/16 17:14 Resp 18 09/09/16 17:14 BP 180/96 H 09/09/16 17:14 Pulse Ox 99 09/09/16 20:09 - Medical History PMH: Anemia, Atrial Fibrillation, COPD, HTN, Hypercholesterolemia, Hyperlipidemia, Kidney Stones (1998), End Stage Renal Disease, Chronic Kidney Disease Surgical History: - [facility] Procedures DIALYSIS ARTERIOVENOSTOM (01/22/15) HEMODIALYSIS (01/30/15) INSERTION OF INFUSION DEV INTO SUP VENA CAVA, PERC APPROACH (11/12/15) PACKED CELL TRANSFUSION (11/05/14) PERFORMANCE OF URINARY FILTRATION, MULTIPLE (08/22/16) PERFORMANCE OF URINARY FILTRATION, SINGLE (02/29/16) ULTRASONOGRAPHY OF SUPERIOR VENA CAVA, GUIDANCE (11/12/15) VENOUS CATHETERIZATION FOR RENAL DIALYSIS (11/05/14) Family History: States: Unknown Family Hx - Social History Hx Tobacco Use: No (Quit years ago) Hx Alcohol Use: No Hx Substance Use: No - Immunization History Hx Tetanus Toxoid Vaccination: Yes Hx Influenza Vaccination: Yes Hx Pneumococcal Vaccination: Yes Review Of Systems Except As Marked, All Systems Reviewed And Found Negative. Constitutional: Positive for: Other (+Malfunctioning right arm av fistula). Negative for: Fever, Chills Cardiovascular: Negative for: Chest Pain Respiratory: Negative for: Shortness of Breath Gastrointestinal: Negative for: Vomiting Physical Exam - Physical Exam Appears: Non-toxic, No Acute Distress Skin: Normal Color, Warm, Dry Head: Atraumatic, Normacephalic Eye(s): bilateral: Normal Inspection Oral Mucosa: Moist Chest: Symmetrical Cardiovascular: Rhythm Regular Respiratory: Normal Breath Sounds, No Accessory Muscle Use Extremity: Normal ROM, Capillary Refill (< 2 seconds), No Deformity, Other (+AV fistula to the right upper arm with strong pulsatile and thrill) Pulses: Left Radial: Normal, Right Radial: Normal Neurological/Psych: Oriented x3, Normal Speech, Normal Cognition ED Course And Treatment - Laboratory Results Result Diagrams: 09/09/16 17:57 09/09/16 17:57 Lab Interpretation: Abnormal (pancytopenia, normal K+) ECG: Interpreted By Me ECG Rhythm: Sinus Rhythm ECG Interpretation: Normal Rate From EC O2 Sat by Pulse Oximetry: 99 (Room air) Pulse Ox Interpretation: Normal - Radiology CXR: Interpreted by Me CXR Interpretation: Yes: No Acute Disease Progress Note: CXR, EKG, and Blood work ordered and reviewed. Case discussed with Dr. Altman at 18:00 and 19:00. Case discussed with Dr. Altman's resident. [id number]: failed attempts to contact Dr. Carter for admission. 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 Disposition Doctor Will See Patient In The: Hospital Counseled Patient/Family Regarding: Studies Performed, Diagnosis - Disposition Disposition: HOSPITALIZED Disposition Time: 20:20 Condition: GOOD - Clinical Impression Clinical Impression: Thrombocytopenia, Pancytopenia, AV fistula occlusion - Scribe Statement The provider has reviewed the documentation as recorded by the Scribe Judit Dominguez. Provider Attestation: All medical record entries made by the Scribe were at my direction and personally dictated by me. I have reviewed the chart and agree that the record accurately reflects my personal performance of the history, physical exam, medical decision making, and the department course for this patient. I have also personally directed, reviewed, and agree with the discharge instructions and disposition.
--- NOTE | 2016-09-09 21:26 | CP.PCM.CON ---
History of Present Illness - History of Present Illness History of Present Illness: GENERAL SURGERY CONSULT NOTE FOR DR. ARRIOLA 61yo M with PMHx of ESRD on dialysis, lymphoma, CHF, COPD, A fib, HTN, pancytopenia s/p bone marrow biopsy with recent admission for cough presents to the ED today after being referred from the dialysis center for a malfunctioning right arm AV fistula. Patient receives dialysis M//. He went Monday and the fistula worked well. He didn't go Wed because he said he didn't feel well secondary to a cold. He went today and said they were unable to use the fistula. The patient reports that he has had pain in his right arm since he had dialysis on Monday but states that he may have also slept on it wrong. He is able to move it normally but states he still has some mild pain in the fistula area. Of note, patient was previously admitted in the hospital on 08/22/16 for a cough , uremia, and COPD exacerbation. Sputum cx grew pseudomonas. He was also being worked up for pancytopenia by Dr. Brantley and had bone marrow biopsy on 08/27/16 which showed normocellular marrow w/ maturing trilineage hematopoiesis normal cytogenetics and no evidence of dysplasia. PMHx: ESRD on dialysis MWF, Non hodgkins lymphoma s/p chemo in 2010, TB in past , CHF, pneumonia, COPD, A fib, HTN, hyperlipidemia, BPH, pancytopenia s/p bone marrow biopsy Surgeries: 11/06/14: tesio via L jugular, 01/22/15: revision of AVF, 04/28/15: hybrid gortex AV shunt right arm brachial basilic all by SUDHA Amin, kidney stone removal Allergies: none Review of Systems - Review of Systems All systems: reviewed and no additional remarkable complaints except (as per HPI ) Past Patient History - Infectious Disease Hx of Infectious Diseases: None - Past Medical History & Family History Past Medical History?: Yes - Past Social History Smoking Status: Former Smoker - CARDIAC Hx Atrial Fibrillation: Yes Hx Hypercholesterolemia: Yes Hx Hypertension: Yes - PULMONARY Hx Chronic Obstructive Pulmonary Disease (COPD): Yes - NEUROLOGICAL Hx Neurological Disorder: No - HEENT Hx HEENT Problems: No Other/Comment: WEARS GLASSES - RENAL Hx Chronic Kidney Disease: Yes Hx Kidney Stones: Yes (1998) - ENDOCRINE/METABOLIC Hx Endocrine Disorders: No - HEMATOLOGICAL/ONCOLOGICAL Hx Anemia: Yes - INTEGUMENTARY Hx Dermatological Problems: No - MUSCULOSKELETAL/RHEUMATOLOGICAL Hx Musculoskeletal Disorders: No Hx Falls: No - GASTROINTESTINAL Hx Gastrointestinal Disorders: No - GENITOURINARY/GYNECOLOGICAL Hx Genitourinary Disorders: Yes Hx Prostate Problems: Yes - PSYCHIATRIC Hx Substance Use: No - SURGICAL HISTORY Hx Surgeries: Yes Hx Arteriovenous Shunt: Yes (right upper arm) Hx Vascular Access Device: Yes (right upper arm) Other/Comment: TURP - ANESTHESIA Hx Anesthesia: Yes Hx Anesthesia Reactions: No Hx Malignant Hyperthermia: No Meds Allergies/Adverse Reactions: Allergies Allergy/AdvReac Type Severity Reaction Status Date / Time No Known Allergies Allergy Verified 08/22/16 19:41 Physical Exam - Constitutional Appears: Well, Non-toxic, No Acute Distress - Head Exam Head Exam: ATRAUMATIC, NORMAL INSPECTION - Eye Exam Eye Exam: EOMI, Normal appearance - Respiratory Exam Respiratory Exam: NORMAL BREATHING PATTERN. absent: Respiratory Distress - Cardiovascular Exam Cardiovascular Exam: +S1, +S2 - GI/Abdominal Exam GI & Abdominal Exam: Soft. absent: Tenderness - Extremities Exam Additional comments: Right arm AV Fistula, palpable pulse - Neurological Exam Neurological exam: Alert, CN II-XII Intact - Psychiatric Exam Psychiatric exam: Normal Affect, Normal Mood - Skin Skin Exam: Dry, Normal Color, Warm Results - Vital Signs Recent Vital Signs: Last Vital Signs Temp 97.9 F 09/09/16 21:00 Pulse 90 09/09/16 21:00 Resp 20 09/09/16 21:00 BP 168/88 H 09/09/16 21:00 Pulse Ox 97 09/09/16 21:00 - Labs Result Diagrams: 09/09/16 17:57 09/09/16 17:57 Labs: Laboratory Results - last 24 hr 09/09/16 20:46 PT 10.8 INR 1.0 Assessment & Plan - Assessment and Plan (Free Text) Assessment: 61yo M with PMHx of ESRD on dialysis, lymphoma, CHF, COPD, A fib, HTN, pancytopenia s/p bone marrow biopsy who presents to the ED today after being referred from the dialysis center for a malfunctioning right arm AV fistula - Afebrile, VSS - Pancytopenia: platelets 53, type and screen done, platelets 1 unit ordered, will be given to patient tomorrow AM prior to OR - Will do Permacath in OR tomorrow AM so that patient can have dialysis - No urgent need for dialysis tonight as K is normal 4.5 - Procedure explained in detail to patient, all questions were answered. Written consent was obtained for OR and for platelet transfusion - Patient will need medical clearance prior to OR - Discussed plan with Dr. Agapito Dunlap PGY-2
[2016-09-09] MEDS ORDERED: Albuterol HFA 90 mcg/actuation (8 g) IH PRN (21:42)
[2016-09-09] MEDS ORDERED: Ergocalciferol 50,000 Intl Units Cap ONE (22:00)
[2016-09-09] MEDS ORDERED: Ergocalciferol 50,000 Intl Units Cap PO SCH (22:00)
--- NOTE | 2016-09-10 07:40 | RAD ---
PROCEDURE: CHEST RADIOGRAPH, 1 VIEW HISTORY: SOB COMPARISON: Comparison is made to the previous study dated 08/24/2016 FINDINGS: LUNGS: No evidence of significant interval change since the previous exam. Linear opacity at the right lung is again seen. PLEURA: No pneumothorax or pleural fluid seen. CARDIOVASCULAR: Normal. OSSEOUS STRUCTURES: No significant abnormalities. VISUALIZED UPPER ABDOMEN: Normal. OTHER FINDINGS: None. IMPRESSION: No significant interval change.
[2016-09-10 08:24] LABS: POTASSIUM 4.3 mmol/L (3.6-5.2)
[2016-09-10 08:26] LABS: ALB/GLOB RATIO 1.5 (1.0-2.1); BILIRUBIN,TOTAL 0.5 mg/dL (0.2-1.3); TOTAL PROTEIN 5.4 g/dL (6.3-8.3)
[2016-09-10 08:27] LABS: BASO % 0.5 % (0.0-2.0); CALCIUM 9.1 mg/dl (8.6-10.4); EOS # 0.1 K/uL (0.0-0.7); EOS % 4.3 % (0.0-4.0); LYMPH # 0.4 K/uL (1.0-4.3); LYMPH % 16.9 % (20.0-40.0); MEAN CELL VOLUME 94.5 fL (80.0-94.0); MEAN CORPUSCULAR HEMOGLOBIN 30.3 pg (27.0-31.0); MEAN CORPUSCULAR HGB CONC 32.1 g/dL (33.0-37.0); MEAN PLATELET VOLUME 10.9 fL (7.2-11.7); MONO # 0.3 K/uL (0.0-0.8); MONO % 11.3 % (0.0-10.0); NRBC % 0.2 % (0.0-2.0); RED CELL DISTRIBUTION WIDTH 17.3 % (11.5-14.5); WHITE BLOOD COUNT 2.4 K/uL (4.8-10.8)
[2016-09-10] MEDS: Tiotropium 18 mcg Cap For Inhalation INH SCH (09:35)
[2016-09-10] MEDS ORDERED: Lidocaine 1% Inj (20ml) ONE (09:36)
[2016-09-10] MEDS ORDERED: ceFAZolin IV 1 gm in Dextrose 50 ML IVPB ONE (09:36)
[2016-09-10] MEDS ORDERED: HEPARIN-NS 5,000 UNITS/500 ML 500 ML IV ONE (09:37)
[2016-09-10] MEDS: diltiaZEM 240 mg/24 Hours CD Cap PO SCH (09:42)
[2016-09-10] MEDS ORDERED: Propofol 10 mg/ml Inj (20 ML) ONE (09:43)
[2016-09-10] MEDS ORDERED: Midazolam 2 MG/2 ML VIAL ONE (09:43)
[2016-09-10] MEDS ORDERED: Iohexol 240 (50 ml) ONE (10:00)
--- NOTE | 2016-09-10 10:55 | PCM.SURG1 ---
Surgeon's Initial Post Op Note - Surgeon's Notes Surgeon: Dr. Altman Glove Former: Dr. Blanca PGY-1 Type of Anesthesia: IV Sedation Pre-Operative Diagnosis: renal failure Operative Findings: see operative report Post-Operative Diagnosis: see operative report Operation Performed: Attempt of R IJ insertion of permacath. R femoral insertion of permacath Specimen/Specimens Removed: none Estimated Blood Loss: EBL {In ML}: 20 Blood Products Given: N/A Drains Used: No Drains Post-Op Condition: Good Date of Surgery/Procedure: 09/10/16 Time of Surgery/Procedure: 09:30
--- NOTE | 2016-09-10 11:43 | OP ---
PROCEDURE DATE: 09/10/2016 PREOPERATIVE DIAGNOSIS: Clotted shunt, right arm. POSTOPERATIVE DIAGNOSIS: Clotted shunt, right arm. PROCEDURE CARRIED OUT: PermCath, right femoral vein with C-arm fluoroscopy and ultrasound-guided pun cture, venacavogram via right jugular vein. SURGEON: Anselmo Altman Jr., MD LEVEL DESIGNER: Dr. Haja Blanca. ANESTHESIOLOGIST: Dr. Vail. INDICATIONS: A 61-year-old man with renal insufficiency, previous access placed in the right upper a rm approximately 2 years ago. OPERATIVE FINDINGS: Initially, we were able to puncture the jugular vein, but unable to advance the catheter centrally or a wire centrally and we subsequently did a venogram which showed that the centr al vein was occluded on the right side and there was no direct communication of the subclavian or jug ular vein into the superior vena cava. Initially, we attempted with a Glidewire to cross this, but d ue to the patient's low platelet count and a variety of other problems, I decided to abandon attempts of remedying this now. Subsequently, we then reprepped, redraped, punctured the right femoral vein under the fluoroscopy don e with micropuncture technique and ultrasound guidance and advanced the catheter centrally which was deployed with tip above the top of the superior vena cava. Initially, there were some problems with the catheter [id number] the wire, etc., but these were all eventually straightened out. Blood loss of procedure was 20-25 mL and platelets were transfused during the procedure and the patient tolerated t his well. OPERATION CARRIED OUT: Placement of PermCath right femoral vein, with C-arm fluoroscopy and ultrasou nd-guided puncture into superior vena cava. Anselmo Altman Jr., MD cc: [id number] TT: 09/10/2016 11:43:22 tn
--- NOTE | 2016-09-10 12:28 | RAD ---
HISTORY: s/p R IJ COMPARISON: Comparison is made to the previous study dated 09/09/2016 FINDINGS: LUNGS: No significant interval change in the lungs noted since the previous exam. PLEURA: No significant pleural effusion identified, no pneumothorax apparent. CARDIOVASCULAR: Cardiomegaly is seen. OSSEOUS STRUCTURES: No significant abnormalities. VISUALIZED UPPER ABDOMEN: Normal. OTHER FINDINGS: No evidence of right jugular central line. IMPRESSION: No evidence of interval change since the previous exam.
[2016-09-10] MEDS: HYDROmorphone 0.5 mg/0.5 ml ISec IVP PRN (14:25)
[2016-09-10] MEDS ORDERED: EPOETIN ALFA 4,000 UNIT/ML ML Dialysis IV ONE (16:15)
[2016-09-11] MEDS: HYDROmorphone 0.5 mg/0.5 ml ISec IVP PRN (01:05)
[2016-09-11 08:40] LABS: POTASSIUM 4.6 mmol/L (3.6-5.2)
--- NOTE | 2016-09-11 08:57 | CP.PCM.PN ---
Subjective - Date & Time of Evaluation Date of Evaluation: 09/11/16 Time of Evaluation: 07:40 - Subjective Subjective: Vascular Surgery: Dr. Altman Pt S&E. Doing well. Complaints of mild pain at site of dialysis catheter insertion, area is c/d/i. Objective - Vital Signs/Intake and Output Vital Signs (last 24 hours): Temp Pulse Resp BP Pulse Ox 97.5 F L 64 20 178/89 H 97 09/11/16 08:00 09/11/16 08:00 09/11/16 08:00 09/11/16 08:00 09/11/16 08:00 Intake and Output: 09/11/16 09/11/16 06:59 18:59 Intake Total 615 Output Total 1 Balance 614 - Medications Medications: Current Medications Albuterol (Ventolin Hfa 90 Mcg/Actuation (8 G)) 2 puff IH RQ4 PRN PRN Reason: Cough and congestion Calcitriol (Rocaltrol) 0.25 mcg PO DAILY [facility] Last Admin: 09/10/16 09:42 Dose: Not Given Calcium Acetate (Phoslo) 667 mg PO TID [facility] Last Admin: 09/10/16 18:00 Dose: 667 mg Cinacalcet (Sensipar) 30 mg PO DAILY [facility] Last Admin: 09/10/16 09:42 Dose: Not Given Diltiazem HCl (Cardizem Cd) 240 mg PO DAILY [facility] Last Admin: 09/10/16 09:42 Dose: Not Given Docusate Sodium (Colace) 100 mg PO TID [facility] Last Admin: 09/10/16 18:00 Dose: 100 mg Ergocalciferol (Drisdol 50,000 Intl Units Cap) 50,000 cap PO QWK [facility] Last Admin: 09/09/16 22:38 Dose: 50,000 cap Hydromorphone HCl (Dilaudid) 0.25 mg IVP Q6H PRN PRN Reason: Pain, moderate (4-7) Last Admin: 09/11/16 01:05 Dose: 0.25 mg Metoprolol Tartrate (Lopressor) 50 mg PO BID [facility] Last Admin: 09/10/16 18:00 Dose: 50 mg Tamsulosin HCl (Flomax) 0.4 mg PO DAILY [facility] Last Admin: 09/10/16 09:42 Dose: Not Given Tiotropium [place] (Spiriva) 18 mcg INH RQD VIKY Last Admin: 09/10/16 09:35 Dose: Not Given - Labs Labs: 09/10/16 08:03 09/11/16 08:17 PT 10.8 SECONDS (9.7-12.2) 09/09/16 20:46 INR 1.0 09/09/16 20:46 - Constitutional Appears: No Acute Distress - Head Exam Head Exam: NORMOCEPHALIC - ENT Exam ENT Exam: Mucous Membranes Moist - Respiratory Exam Respiratory Exam: NORMAL BREATHING PATTERN - Cardiovascular Exam Cardiovascular Exam: +S1, +S2 - GI/Abdominal Exam GI & Abdominal Exam: Soft - Neurological Exam Neurological Exam: Alert, Awake, Oriented x3 - Psychiatric Exam Psychiatric exam: Normal Mood - Skin Skin Exam: Dry, Intact, Warm Assessment and Plan - Assessment and Plan (Free Text) Assessment: 61M s/p dialysis catheter insertion in R femoral vein POD #1 -Pt doing well -IR consulted for declotting of AV shunt -D/w Dr. Altman
[2016-09-11] MEDS: Tiotropium 18 mcg Cap For Inhalation INH SCH (09:01)
[2016-09-11] MEDS: diltiaZEM 240 mg/24 Hours CD Cap PO SCH (10:30)
--- NOTE | 2016-09-11 13:08 | CP.PCM.CON ---
History of Present Illness - History of Present Illness History of Present Illness: 61yo M with PMHx of ESRD on dialysis, lymphoma, CHF, COPD, A fib, HTN, pancytopenia s/p bone marrow biopsy with recent admission for cough presents to the to [facility] after being referred from the dialysis center for a malfunctioning right arm AV fistula. Patient receives dialysis M//. He went Monday and the fistula worked well. He didn't go Mon because he said he didn't feel well secondary to a cold. He went Monday and said they were unable to use the fistula. The patient reports that he has had pain in his right arm since he had dialysis on Monday but states that he may have also slept on it wrong. He is able to move it normally but states he still has some mild pain in the fistula area. Patient was referred to outpatient access center but he refused that as well. Patient was previously admitted in the hospital on 08/22/16 for a cough, uremia, and COPD exacerbation. Sputum cx grew pseudomonas. He was also being worked up for pancytopenia and had bone marrow biopsy on 08/27/16 which showed normocellular marrow w/ maturing trilineage hematopoiesis normal cytogenetics and no evidence of dysplasia. Temporary dialysis catheter placed in right femoral vein. Received urgent dialysis 09/10 PMHx: ESRD on dialysis MWF, Non hodgkins lymphoma s/p chemo in 2010, TB in past , CHF, pneumonia, COPD, A fib, HTN, hyperlipidemia, BPH, pancytopenia s/p bone marrow biopsy Surgeries: 11/06/14: tesio via L jugular, 01/22/15: revision of AVF, 04/28/15: hybrid gortex AV shunt right arm brachial basilic all by SUDHA Amin, kidney stone removal Allergies: none Fhx: father - hypertension Review of Systems - Constitutional Constitutional: Fatigue. absent: Fever, Headache - EENT Eyes: absent: Dry Eye, Pain, Loss of Vision Ears: absent: Ear Pain, Abnormal Hearing, Dizziness Nose/Mouth/Throat: absent: Nasal Congestion, Nasal Obstruction, Dry Mouth, Mouth Pain - Cardiovascular Cardiovascular: absent: Chest Pain, Edema, Leg Edema, Palpitations - Respiratory Respiratory: absent: Cough, Dyspnea, Wheezing - Gastrointestinal Gastrointestinal: absent: Constipation, Cramping, Diarrhea, Heartburn, Nausea - Genitourinary Genitourinary: absent: Change in Urinary Stream, Hematuria, Nocturia - Musculoskeletal Musculoskeletal: absent: Joint Swelling, Muscle Weakness, Myalgias - Integumentary Integumentary: absent: Pruritus, Rash, Swelling - Neurological Neurological: absent: Confusion, Convulsions, Numbness, Headaches - Psychiatric Psychiatric: absent: Anxiety, Confusion, Depression - Endocrine Endocrine: absent: Cold Intolorance, Fatigue, Flushing - Hematologic/Lymphatic Hematologic: absent: Easy Bleeding, Easy Bruising Past Patient History - Infectious Disease Hx of Infectious Diseases: None - Past Medical History & Family History Past Medical History?: Yes - Past Social History Smoking Status: Former Smoker - CARDIAC Hx Atrial Fibrillation: Yes Hx Hypercholesterolemia: Yes Hx Hypertension: Yes - PULMONARY Hx Chronic Obstructive Pulmonary Disease (COPD): Yes - NEUROLOGICAL Hx Neurological Disorder: No - HEENT Hx HEENT Problems: No Other/Comment: WEARS GLASSES - RENAL Hx Chronic Kidney Disease: Yes Hx Dialysis: Yes Date of Last Dialysis Treatment: 09/05/16 Hx Kidney Stones: Yes (1998) - ENDOCRINE/METABOLIC Hx Endocrine Disorders: No - HEMATOLOGICAL/ONCOLOGICAL Hx Blood Disorders: Yes Hx Anemia: Yes - INTEGUMENTARY Hx Dermatological Problems: No - MUSCULOSKELETAL/RHEUMATOLOGICAL Hx Musculoskeletal Disorders: No Hx Falls: No - GASTROINTESTINAL Hx Gastrointestinal Disorders: No - GENITOURINARY/GYNECOLOGICAL Hx Genitourinary Disorders: Yes Hx Prostate Problems: Yes (hx of turp) - PSYCHIATRIC Hx Psychophysiologic Disorder: No Hx Substance Use: No - SURGICAL HISTORY Hx Surgeries: Yes Hx Arteriovenous Shunt: Yes (right upper arm) Hx Vascular Access Device: Yes (right upper arm) Other/Comment: TURP - ANESTHESIA Hx Anesthesia: Yes Hx Anesthesia Reactions: No Hx Malignant Hyperthermia: No Has any member of the family had a problem w/ anesthesia?: No Meds Allergies/Adverse Reactions: Allergies Allergy/AdvReac Type Severity Reaction Status Date / Time No Known Allergies Allergy Verified 08/22/16 19:41 - Medications Medications: Current Medications Albuterol (Ventolin Hfa 90 Mcg/Actuation (8 G)) 2 puff IH RQ4 PRN PRN Reason: Cough and congestion Calcitriol (Rocaltrol) 0.25 mcg PO DAILY [facility] Last Admin: 09/11/16 10:30 Dose: 0.25 mcg Calcium Acetate (Phoslo) 667 mg PO TID [facility] Last Admin: 09/11/16 10:29 Dose: 667 mg Cinacalcet (Sensipar) 30 mg PO DAILY [facility] Last Admin: 09/11/16 10:29 Dose: 30 mg Diltiazem HCl (Cardizem Cd) 240 mg PO DAILY [facility] Last Admin: 09/11/16 10:30 Dose: 240 mg Docusate Sodium (Colace) 100 mg PO TID [facility] Last Admin: 09/11/16 10:29 Dose: 100 mg Ergocalciferol (Drisdol 50,000 Intl Units Cap) 50,000 cap PO QWK [facility] Last Admin: 09/09/16 22:38 Dose: 50,000 cap Hydromorphone HCl (Dilaudid) 0.25 mg IVP Q6H PRN PRN Reason: Pain, moderate (4-7) Last Admin: 09/11/16 01:05 Dose: 0.25 mg Metoprolol Tartrate (Lopressor) 50 mg PO BID [facility] Last Admin: 09/11/16 10:29 Dose: 50 mg Tamsulosin HCl (Flomax) 0.4 mg PO DAILY [facility] Last Admin: 09/11/16 10:29 Dose: 0.4 mg Tiotropium [place] (Spiriva) 18 mcg INH RQD [facility] Last Admin: 09/11/16 09:01 Dose: Not Given Physical Exam - Constitutional Appears: Well, Non-toxic, No Acute Distress - Head Exam Head Exam: ATRAUMATIC, NORMAL INSPECTION - Eye Exam Eye Exam: EOMI, Normal appearance - ENT Exam ENT Exam: Mucous Membranes Moist, Normal Oropharynx - Neck Exam Neck exam: Positive for: Normal Inspection. Negative for: Thyromegaly - Respiratory Exam Respiratory Exam: Clear to Auscultation Bilateral. absent: Rhonchi, Wheezes - Cardiovascular Exam Cardiovascular Exam: REGULAR RHYTHM, +S1, +S2. absent: JVD - GI/Abdominal Exam GI & Abdominal Exam: Normal Bowel Sounds, Soft. absent: Tenderness - Extremities Exam Extremities exam: Negative for: pedal edema, tenderness Additional comments: Rupper ext avg without bruit - Back Exam Back exam: absent: rash noted, tenderness - Neurological Exam Neurological exam: Alert, CN II-XII Intact, Oriented x3 - Psychiatric Exam Psychiatric exam: Normal Affect, Normal Mood - Skin Skin Exam: Dry, Intact, Normal Color Results - Vital Signs Recent Vital Signs: Last Vital Signs Temp 97.5 F L 09/11/16 08:00 Pulse 64 09/11/16 08:00 Resp 20 09/11/16 08:00 BP 178/89 H 09/11/16 08:00 Pulse Ox 97 09/11/16 08:00 - Labs Result Diagrams: 09/10/16 08:03 09/11/16 08:17 Labs: Laboratory Results - last 24 hr 09/11/16 09/11/16 00:52 08:17 Sodium 136 Potassium 4.6 Chloride 97 L Carbon Dioxide 24 Anion Gap 21 H BUN 48 H Creatinine 7.9 H* D Est GFR ( Amer) 8 Est GFR (Non-Af Amer) 7 POC Glucose (mg/dL) 125 H Random Glucose 85 Calcium 9.0 Assessment & Plan (1) AV fistula occlusion Status: Acute (2) ESRD (end stage renal disease) on dialysis Status: Acute (3) Pancytopenia Status: Acute (4) ESRD needing dialysis Status: Acute (5) Essential hypertension Status: Acute - Assessment and Plan (Free Text) Assessment: AV access occlusion - temporary catheter placed Dialysis completed for azotemia and fluid balance MP for anemia Maintain bp meds Surgical eval noted, OR as scheduled Education on dialysis compliance given Dialysis to be arranged around OR schedule
[2016-09-11 13:48] LABS: BASO % 0.4 % (0.0-2.0); EOS # 0.1 K/uL (0.0-0.7); EOS % 4.4 % (0.0-4.0); HEMATOCRIT 28.9 % (35.0-51.0); LYMPH # 0.5 K/uL (1.0-4.3); LYMPH % 18.2 % (20.0-40.0); MEAN CELL VOLUME 93.6 fL (80.0-94.0); MEAN CORPUSCULAR HEMOGLOBIN 30.2 pg (27.0-31.0); MEAN CORPUSCULAR HGB CONC 32.2 g/dL (33.0-37.0); MEAN PLATELET VOLUME 9.6 fL (7.2-11.7); MONO # 0.3 K/uL (0.0-0.8); MONO % 11.2 % (0.0-10.0); RED CELL DISTRIBUTION WIDTH 16.8 % (11.5-14.5); WHITE BLOOD COUNT 2.6 K/uL (4.8-10.8)
--- NOTE | 2016-09-11 17:21 | CP.PCM.CON ---
History of Present Illness - History of Present Illness History of Present Illness: 61 year old male with a history of HTN, COPD, afib, non hodgkins lymphoma s/p 6 months chemotherapy in 2010, pancytopenia s/p bone marrow biopsy by me 2 weeks ago, admitted with malfunctioning AV fistula. The patient reports to being diagnosed and treated with non hodgkins lymphoma in 2010 at [facility] in [facility]. He was treated with 6 months of unknown chemotherapy and was routinely following with them every 3 months however in the last 1-2 years he reports he has not followed up. He denies abnormal bleeding and bruising. During his admissions about 2 weeks ago I performed a bone marrow aspirate and biopsy to evaluate his pancytopenia. Results showed a normocellular marrow but abnormal maturation patterns in the myeloid precursors by flow cytometery, and normal male karyotype. Past medical history: HTN, COPD, afib, non hodgkins lymphoma Past surgical history: None Family history: Denies hematologic and oncologic problems Social history: Denies tobacco, alcohol, and illicit drug use. Allergies: NKA Review of systems: All remaining review of systems including HEENT, cardiovascular, respiratory, gastrointestinal, genitourinary, musculoskeletal, dermatologic, neurologic, and psychiatric are negative unless mentioned in the HPI. Past Patient History - Infectious Disease Hx of Infectious Diseases: None - Past Medical History & Family History Past Medical History?: Yes - Past Social History Smoking Status: Former Smoker - CARDIAC Hx Atrial Fibrillation: Yes Hx Hypercholesterolemia: Yes Hx Hypertension: Yes - PULMONARY Hx Chronic Obstructive Pulmonary Disease (COPD): Yes - NEUROLOGICAL Hx Neurological Disorder: No - HEENT Hx HEENT Problems: No Other/Comment: WEARS GLASSES - RENAL Hx Chronic Kidney Disease: Yes Hx Dialysis: Yes Date of Last Dialysis Treatment: 09/05/16 Hx Kidney Stones: Yes (1998) - ENDOCRINE/METABOLIC Hx Endocrine Disorders: No - HEMATOLOGICAL/ONCOLOGICAL Hx Blood Disorders: Yes Hx Anemia: Yes - INTEGUMENTARY Hx Dermatological Problems: No - MUSCULOSKELETAL/RHEUMATOLOGICAL Hx Musculoskeletal Disorders: No Hx Falls: No - GASTROINTESTINAL Hx Gastrointestinal Disorders: No - GENITOURINARY/GYNECOLOGICAL Hx Genitourinary Disorders: Yes Hx Prostate Problems: Yes (hx of turp) - PSYCHIATRIC Hx Psychophysiologic Disorder: No Hx Substance Use: No - SURGICAL HISTORY Hx Surgeries: Yes Hx Arteriovenous Shunt: Yes (right upper arm) Hx Vascular Access Device: Yes (right upper arm) Other/Comment: TURP - ANESTHESIA Hx Anesthesia: Yes Hx Anesthesia Reactions: No Hx Malignant Hyperthermia: No Has any member of the family had a problem w/ anesthesia?: No Meds Allergies/Adverse Reactions: Allergies Allergy/AdvReac Type Severity Reaction Status Date / Time No Known Allergies Allergy Verified 08/22/16 19:41 - Medications Medications: Current Medications Albuterol (Ventolin Hfa 90 Mcg/Actuation (8 G)) 2 puff IH RQ4 PRN PRN Reason: Cough and congestion Calcitriol (Rocaltrol) 0.25 mcg PO DAILY [facility] Last Admin: 09/11/16 10:30 Dose: 0.25 mcg Calcium Acetate (Phoslo) 667 mg PO TID [facility] Last Admin: 09/11/16 14:56 Dose: 667 mg Cinacalcet (Sensipar) 30 mg PO DAILY [facility] Last Admin: 09/11/16 10:29 Dose: 30 mg Diltiazem HCl (Cardizem Cd) 240 mg PO DAILY [facility] Last Admin: 09/11/16 10:30 Dose: 240 mg Docusate Sodium (Colace) 100 mg PO TID [facility] Last Admin: 09/11/16 14:56 Dose: 100 mg Ergocalciferol (Drisdol 50,000 Intl Units Cap) 50,000 cap PO QWK [facility] Last Admin: 09/09/16 22:38 Dose: 50,000 cap Hydromorphone HCl (Dilaudid) 0.25 mg IVP Q6H PRN PRN Reason: Pain, moderate (4-7) Last Admin: 09/11/16 01:05 Dose: 0.25 mg Metoprolol Tartrate (Lopressor) 50 mg PO BID [facility] Last Admin: 09/11/16 10:29 Dose: 50 mg Tamsulosin HCl (Flomax) 0.4 mg PO DAILY [facility] Last Admin: 09/11/16 10:29 Dose: 0.4 mg Tiotropium [place] (Spiriva) 18 mcg INH RQD [facility] Last Admin: 09/11/16 09:01 Dose: Not Given Physical Exam - Head Exam Head Exam: ATRAUMATIC - Eye Exam Eye Exam: Normal appearance - ENT Exam ENT Exam: Mucous Membranes Dry - Respiratory Exam Respiratory Exam: NORMAL BREATHING PATTERN - Cardiovascular Exam Cardiovascular Exam: +S1, +S2 - GI/Abdominal Exam GI & Abdominal Exam: Normal Bowel Sounds - Extremities Exam Extremities exam: Positive for: normal inspection - Neurological Exam Neurological exam: Oriented x3 - Psychiatric Exam Psychiatric exam: Normal Affect, Normal Mood - Skin Skin Exam: Warm Results - Vital Signs Recent Vital Signs: Last Vital Signs Temp 97.5 F L 09/11/16 08:00 Pulse 64 09/11/16 08:00 Resp 20 09/11/16 08:00 BP 178/89 H 09/11/16 08:00 Pulse Ox 97 09/11/16 08:00 - Labs Result Diagrams: 09/11/16 13:42 09/11/16 08:17 Labs: Laboratory Results - last 24 hr 09/11/16 09/11/16 09/11/16 00:52 08:17 13:42 WBC 2.6 L RBC 3.09 L Hgb 9.3 L Hct 28.9 L MCV 93.6 MCH 30.2 MCHC 32.2 L RDW 16.8 H Plt Count 55 L MPV 9.6 Neut % (Auto) 65.8 Lymph % (Auto) 18.2 L Power % (Auto) 11.2 H Eos % (Auto) 4.4 H Baso % (Auto) 0.4 Neut # 1.7 L Lymph # 0.5 L Power # 0.3 Eos # 0.1 Baso # 0.0 Differential Comment Sodium 136 Potassium 4.6 Chloride 97 L Carbon Dioxide 24 Anion Gap 21 H BUN 48 H Creatinine 7.9 H* D Est GFR ( Amer) 8 Est GFR (Non-Af Amer) 7 POC Glucose (mg/dL) 125 H Random Glucose 85 Calcium 9.0 Assessment & Plan (1) Pancytopenia Assessment and Plan: bone marrow does not reveal evidence of lymphoma or leukemia may have treatment related MDS; will discuss with pathology if FISH for MDS performed and significance of abnormal flow cytometery transfusion support as needed for fistula. Thank you for this interesting consult. Status: Acute
--- NOTE | 2016-09-12 09:00 | RAD ---
PROCEDURE: Intraoperative Fluoroscopy. HISTORY: PERMACATH PLACEMENT SECOND ATTEMPT NEW SITE FINDINGS: Fluoroscopic assistance was provided for right groin catheter placement. Please refer to the operative report from
--- NOTE | 2016-09-12 09:02 | RAD ---
PROCEDURE: Intraoperative Fluoroscopy. HISTORY: PERMACATH INSERTION ATTEMPT VESSEL OCCLUDED FINDINGS: Fluoroscopic assistance was provided for attempt to insert PermCath..
--- NOTE | 2016-09-12 09:43 | CP.PCM.PN ---
Subjective - Date & Time of Evaluation Date of Evaluation: 09/12/16 Time of Evaluation: 09:40 - Subjective Subjective: Dr. Alcantara service: Patient seen and examined in room. He says he was told to come to the hospital because his AV fistula no longer was working correnctly for him to have dialysis. He reports no pain, no hematuria, blood in stool, no chest pain, palpitations, or shortness of breath. Objective - Vital Signs/Intake and Output Vital Signs (last 24 hours): Temp Pulse Resp BP Pulse Ox 98.2 F 61 20 166/85 H 98 09/12/16 00:00 09/12/16 02:06 09/12/16 00:00 09/12/16 00:00 09/12/16 00:00 Intake and Output: 09/12/16 09/12/16 06:59 18:59 Intake Total 400 0 Balance 400 0 - Medications Medications: Current Medications Albuterol (Ventolin Hfa 90 Mcg/Actuation (8 G)) 2 puff IH RQ4 PRN PRN Reason: Cough and congestion Calcitriol (Rocaltrol) 0.25 mcg PO DAILY [facility] Last Admin: 09/11/16 10:30 Dose: 0.25 mcg Calcium Acetate (Phoslo) 667 mg PO TID [facility] Last Admin: 09/11/16 18:16 Dose: 667 mg Cinacalcet (Sensipar) 30 mg PO DAILY [facility] Last Admin: 09/11/16 10:29 Dose: 30 mg Diltiazem HCl (Cardizem Cd) 240 mg PO DAILY [facility] Last Admin: 09/11/16 10:30 Dose: 240 mg Docusate Sodium (Colace) 100 mg PO TID [facility] Last Admin: 09/11/16 18:16 Dose: 100 mg Ergocalciferol (Drisdol 50,000 Intl Units Cap) 50,000 cap PO QWK [facility] Last Admin: 09/09/16 22:38 Dose: 50,000 cap Hydromorphone HCl (Dilaudid) 0.25 mg IVP Q6H PRN PRN Reason: Pain, moderate (4-7) Last Admin: 09/11/16 01:05 Dose: 0.25 mg Metoprolol Tartrate (Lopressor) 50 mg PO BID [facility] Last Admin: 09/11/16 18:16 Dose: 50 mg Tamsulosin HCl (Flomax) 0.4 mg PO DAILY [facility] Last Admin: 09/11/16 10:29 Dose: 0.4 mg Tiotropium [place] (Spiriva) 18 mcg INH RQD [facility] Last Admin: 09/11/16 09:01 Dose: Not Given - Labs Labs: 09/11/16 13:42 09/11/16 08:17 PT 10.8 SECONDS (9.7-12.2) 09/09/16 20:46 INR 1.0 09/09/16 20:46 - Constitutional Appears: Non-toxic, No Acute Distress - Head Exam Head Exam: NORMAL INSPECTION - Eye Exam Eye Exam: Normal appearance Pupil Exam: NORMAL ACCOMODATION - ENT Exam ENT Exam: Normal Exam - Respiratory Exam Respiratory Exam: Clear to Ausculation Bilateral. absent: Rhonchi, Wheezes - Cardiovascular Exam Cardiovascular Exam: REGULAR RHYTHM, RRR, +S1, +S2. absent: Gallop, Rubs Additional comments: permacath seen - GI/Abdominal Exam GI & Abdominal Exam: Soft, Normal Bowel Sounds. absent: Tenderness - Extremities Exam Additional comments: AV fistula - Back Exam Back Exam: NORMAL INSPECTION - Psychiatric Exam Psychiatric exam: Normal Affect, Normal Mood - Skin Skin Exam: Normal Color, Warm Assessment and Plan (1) AV fistula occlusion Assessment & Plan: Patient is to go for surgery tomorrow with Dr. Benton, will give 1 unit of platlets today, have one on hand due to thrombocytopenia. Status: Acute (2) Thrombocytopenia Assessment & Plan: Platlets at 55, give 1 unit, have one on had for surgery tomorrow. Status: Acute (3) ESRD (end stage renal disease) on dialysis Assessment & Plan: On Dialysis Status: Chronic (4) Hypertension Assessment & Plan: Lopressor 25mg bid Status: Chronic (5) Afib Assessment & Plan: Cardizem 240mg for rate control, no anticoagulation due to thrombocytopenia. Status: Chronic (6) BPH (benign prostatic hyperplasia) Assessment & Plan: Flomax 0.4mg Status: Chronic (7) COPD (chronic obstructive pulmonary disease) Assessment & Plan: Spirivia and Duoneb as needed. Status: Chronic (8) Prophylactic measure Assessment & Plan: withhold VTE due to thrombocytopenia pepcid 20mg SCDs Vitamin D and Dilauded for pain control Status: Acute
--- NOTE | 2016-09-12 10:18 | PCM.IRP ---
History of Present Illness - History of Present Illness History of Present Illness: IR consulted for right brachiobasilic AVF thrombectomy. Post operative notes reviewed from HD catheter placement. 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 Pt is currently thrombocytopenic. Once his platelets are corrected, we will plan thrombectomy of his AVF and recanalization of his central stenosis/ occlusion. Central venous [employer] may result in venous injury and increased risk of bleed if Pt is coagulopathic. Objective - Vital Signs/Intake and Output Vital Signs (last 24 hours): Vital Signs - 24 hr 09/11/16 09/12/16 09/12/16 18:00 00:00 02:06 Temperature 98.3 F 98.2 F Pulse Rate 64 61 61 Respiratory 20 20 Rate Blood Pressure 166/83 H 166/85 H O2 Sat by Pulse 97 98 Oximetry Intake and Output (last 12 hours): Intake & Output 09/11/16 09/12/16 09/12/16 18:59 06:59 18:59 Intake Total 450 400 0 Balance 450 400 0 Intake: Oral 450 400 0 Other: # Voids Urine, Voided 1 # Bowel Movements 0 - Medications Medications: Current Medications Albuterol (Ventolin Hfa 90 Mcg/Actuation (8 G)) 2 puff IH RQ4 PRN PRN Reason: Cough and congestion Calcitriol (Rocaltrol) 0.25 mcg PO DAILY [facility] Last Admin: 09/11/16 10:30 Dose: 0.25 mcg Calcium Acetate (Phoslo) 667 mg PO TID [facility] Last Admin: 09/11/16 18:16 Dose: 667 mg Cinacalcet (Sensipar) 30 mg PO DAILY [facility] Last Admin: 09/11/16 10:29 Dose: 30 mg Diltiazem HCl (Cardizem Cd) 240 mg PO DAILY [facility] Last Admin: 09/11/16 10:30 Dose: 240 mg Docusate Sodium (Colace) 100 mg PO TID [facility] Last Admin: 09/11/16 18:16 Dose: 100 mg Ergocalciferol (Drisdol 50,000 Intl Units Cap) 50,000 cap PO QWK [facility] Last Admin: 09/09/16 22:38 Dose: 50,000 cap Hydromorphone HCl (Dilaudid) 0.25 mg IVP Q6H PRN PRN Reason: Pain, moderate (4-7) Last Admin: 09/11/16 01:05 Dose: 0.25 mg Metoprolol Tartrate (Lopressor) 50 mg PO BID [facility] Last Admin: 09/11/16 18:16 Dose: 50 mg Tamsulosin HCl (Flomax) 0.4 mg PO DAILY [facility] Last Admin: 09/11/16 10:29 Dose: 0.4 mg Tiotropium [place] (Spiriva) 18 mcg INH RQD [facility] Last Admin: 09/11/16 09:01 Dose: Not Given - Labs Labs (last 24 hours): Laboratory Results - last 24 hr 09/11/16 13:42 WBC 2.6 L RBC 3.09 L Hgb 9.3 L Hct 28.9 L MCV 93.6 MCH 30.2 MCHC 32.2 L RDW 16.8 H Plt Count 55 L MPV 9.6 Neut % (Auto) 65.8 Lymph % (Auto) 18.2 L [place] % (Auto) 11.2 H Eos % (Auto) 4.4 H Baso % (Auto) 0.4 Neut # 1.7 L Lymph # 0.5 L [place] # 0.3 Eos # 0.1 Baso # 0.0 Differential Comment
--- NOTE | 2016-09-12 10:44 | HP ---
A 61-year-old male brought to the hospital with chief complaint of malfunctioning fistula. The patie nt had dialysis. The patient had a platelet count 30,000. Advised admission. Seen by vascular surg pam in the Emergency Room. The patient has history of renal failure, hypertension. PHYSICAL EXAMINATION: GENERAL: The patient is awake, alert, oriented. VITAL SIGNS: Temperature 98, pulse 130. HEENT: Within normal limits. NECK: Supple. CHEST: Symmetrical. HEART: Regular. ABDOMEN: Soft. EXTREMITIES: No edema. The patient has chronic renal failure, malfunctioning arteriovenous fistula. The patient will get be drest, vascular surgery consult. Shabana Galeas MD cc: [id number] TT: 09/11/2016 07:46:46 en 09/12/2016 09:42:55
--- NOTE | 2016-09-12 11:08 | CP.PCM.PN ---
Subjective - Date & Time of Evaluation Date of Evaluation: 09/12/16 Time of Evaluation: 11:02 - Subjective Subjective: Seen by IR for possible thrombectomy; due to thrombocytopenia will need this corrected for procedure Has recent dx pancytopenic- no etiology diagnosed yet. s/p dialysis 09/10- tolerated well- UF 2500ml via right fem cath No F, C, N, V, CPs, diarrhea Objective - Vital Signs/Intake and Output Vital Signs (last 24 hours): Temp Pulse Resp BP Pulse Ox 97.9 F 58 L 18 159/80 H 98 09/12/16 08:00 09/12/16 08:00 09/12/16 08:00 09/12/16 08:00 09/12/16 08:00 Intake and Output: 09/12/16 09/12/16 06:59 18:59 Intake Total 400 0 Balance 400 0 - Medications Medications: Current Medications Albuterol (Ventolin Hfa 90 Mcg/Actuation (8 G)) 2 puff IH RQ4 PRN PRN Reason: Cough and congestion Calcitriol (Rocaltrol) 0.25 mcg PO DAILY [facility] Last Admin: 09/11/16 10:30 Dose: 0.25 mcg Calcium Acetate (Phoslo) 667 mg PO TID [facility] Last Admin: 09/11/16 18:16 Dose: 667 mg Cinacalcet (Sensipar) 30 mg PO DAILY [facility] Last Admin: 09/11/16 10:29 Dose: 30 mg Diltiazem HCl (Cardizem Cd) 240 mg PO DAILY [facility] Last Admin: 09/11/16 10:30 Dose: 240 mg Docusate Sodium (Colace) 100 mg PO TID [facility] Last Admin: 09/11/16 18:16 Dose: 100 mg Ergocalciferol (Drisdol 50,000 Intl Units Cap) 50,000 cap PO QWK [facility] Last Admin: 09/09/16 22:38 Dose: 50,000 cap Hydromorphone HCl (Dilaudid) 0.25 mg IVP Q6H PRN PRN Reason: Pain, moderate (4-7) Last Admin: 09/11/16 01:05 Dose: 0.25 mg Metoprolol Tartrate (Lopressor) 50 mg PO BID [facility] Last Admin: 09/11/16 18:16 Dose: 50 mg Tamsulosin HCl (Flomax) 0.4 mg PO DAILY [facility] Last Admin: 09/11/16 10:29 Dose: 0.4 mg Tiotropium [place] (Spiriva) 18 mcg INH RQD [facility] Last Admin: 09/11/16 09:01 Dose: Not Given - Labs Labs: 09/11/16 13:42 09/11/16 08:17 PT 10.8 SECONDS (9.7-12.2) 09/09/16 20:46 INR 1.0 09/09/16 20:46 - Constitutional Appears: Non-toxic, No Acute Distress - Head Exam Head Exam: ATRAUMATIC, NORMAL INSPECTION - Eye Exam Eye Exam: EOMI, Normal appearance - Neck Exam Neck Exam: Normal Inspection. absent: Tenderness - Respiratory Exam Respiratory Exam: Clear to Ausculation Bilateral, NORMAL BREATHING PATTERN - Cardiovascular Exam Cardiovascular Exam: REGULAR RHYTHM, +S1 - GI/Abdominal Exam GI & Abdominal Exam: Soft. absent: Tenderness - Extremities Exam Extremities Exam: Normal Inspection. absent: Tenderness - Neurological Exam Neurological Exam: Alert, CN II-XII Intact - Skin Skin Exam: Dry, Warm Assessment and Plan (1) AV fistula occlusion Status: Acute (2) ESRD (end stage renal disease) on dialysis Status: Acute (3) Enlarged prostate Status: Acute (4) Secondary hyperparathyroidism Status: Acute - Assessment and Plan (Free Text) Plan: Dialysis now then MWF Recommend heme consult for thrombocytopenia Will need correction of low plats then thrombolysis and possible correction of venous central stenosis
[2016-09-12] MEDS: diltiaZEM 240 mg/24 Hours CD Cap PO SCH (12:23)
[2016-09-12] MEDS ORDERED: EPOETIN ALFA 10,000 UNIT/ML ML IV SCH ×2 (13:00→17:15)
[2016-09-12] MEDS: Tiotropium 18 mcg Cap For Inhalation INH SCH (14:39)
--- NOTE | 2016-09-12 15:20 | CARD ---
APPROVED REPORT EKG Measurement Heart [id number] <Conclusion> Sinus rhythm with 1st degree AV block Minimal voltage criteria for LVH, may be normal variant Nonspecific ST abnormality Abnormal ECG
--- NOTE | 2016-09-12 17:12 | CP.PCM.PN ---
Subjective - Date & Time of Evaluation Date of Evaluation: 09/12/16 Time of Evaluation: 17:10 - Subjective Subjective: Surgery: Dr. Altman Patient seen and examined at bedside. Patient report tolerating HD through permacath placement. Patient evaluated by IR for thrombolysis. Objective - Vital Signs/Intake and Output Vital Signs (last 24 hours): Temp Pulse Resp BP Pulse Ox 97.6 F 63 16 169/97 H 98 09/12/16 13:30 09/12/16 13:30 09/12/16 13:30 09/12/16 16:15 09/12/16 13:30 Intake and Output: 09/12/16 09/12/16 06:59 18:59 Intake Total 400 0 Balance 400 0 - Medications Medications: Current Medications Albuterol (Ventolin Hfa 90 Mcg/Actuation (8 G)) 2 puff IH RQ4 PRN PRN Reason: Cough and congestion Calcitriol (Rocaltrol) 0.25 mcg PO DAILY [facility] Last Admin: 09/12/16 12:18 Dose: 0.25 mcg Calcium Acetate (Phoslo) 667 mg PO TID [facility] Last Admin: 09/12/16 15:21 Dose: Not Given Cinacalcet (Sensipar) 30 mg PO DAILY [facility] Last Admin: 09/12/16 12:18 Dose: 30 mg Diltiazem HCl (Cardizem Cd) 240 mg PO DAILY [facility] Last Admin: 09/12/16 12:23 Dose: Not Given Docusate Sodium (Colace) 100 mg PO TID [facility] Last Admin: 09/12/16 15:21 Dose: Not Given Epoetin Gilberto (Procrit) 10,000 unit IV MWF [facility] Ergocalciferol (Drisdol 50,000 Intl Units Cap) 50,000 cap PO QWK [facility] Last Admin: 09/09/16 22:38 Dose: 50,000 cap Hydromorphone HCl (Dilaudid) 0.25 mg IVP Q6H PRN PRN Reason: Pain, moderate (4-7) Last Admin: 09/11/16 01:05 Dose: 0.25 mg Metoprolol Tartrate (Lopressor) 50 mg PO BID [facility] Last Admin: 09/12/16 12:22 Dose: Not Given Tamsulosin HCl (Flomax) 0.4 mg PO DAILY [facility] Last Admin: 09/12/16 12:18 Dose: 0.4 mg Tiotropium [place] (Spiriva) 18 mcg INH RQD [facility] Last Admin: 09/12/16 14:39 Dose: Not Given - Labs Labs: 09/11/16 13:42 09/11/16 08:17 PT 10.8 SECONDS (9.7-12.2) 09/09/16 20:46 INR 1.0 09/09/16 20:46 - Constitutional Appears: Non-toxic, No Acute Distress - Head Exam Head Exam: ATRAUMATIC, NORMOCEPHALIC - Eye Exam Eye Exam: EOMI, Normal appearance - Cardiovascular Exam Cardiovascular Exam: REGULAR RHYTHM. absent: Tachycardia - Extremities Exam Additional comments: right groin permacath site. small hematoma noted around insertion site. soft, nontender. RUE AVF w/o palpable thrill Assessment and Plan - Assessment and Plan (Free Text) Assessment: 61 y/o male s/p permacath insertion POD2 w/ malfunctioning AVF 2/2 thrombus Plan: -posisble IR intervention for thrombectomy pending platelets -cont HD through permacath -warm compress prn to right groin site -will follow -further recs per Dr. Agapito Soriano PGY1
[2016-09-12] MEDS: Epoetin Alfa 10,000 unit/ml Dialysis IV SCH (17:19)
--- NOTE | 2016-09-12 21:56 | CP.PCM.PN ---
Subjective - Date & Time of Evaluation Date of Evaluation: 09/12/16 Time of Evaluation: 18:15 - Subjective Subjective: No complaints. Objective - Vital Signs/Intake and Output Vital Signs (last 24 hours): Temp Pulse Resp BP Pulse Ox 98.8 F 66 20 177/89 H 98 09/12/16 20:47 09/12/16 20:47 09/12/16 20:47 09/12/16 20:47 09/12/16 13:30 Intake and Output: 09/12/16 09/13/16 18:59 06:59 Intake Total 400 0 Balance 400 0 - Medications Medications: Current Medications Albuterol (Ventolin Hfa 90 Mcg/Actuation (8 G)) 2 puff IH RQ4 PRN PRN Reason: Cough and congestion Calcitriol (Rocaltrol) 0.25 mcg PO DAILY [facility] Last Admin: 09/12/16 12:18 Dose: 0.25 mcg Calcium Acetate (Phoslo) 667 mg PO TID [facility] Last Admin: 09/12/16 18:22 Dose: 667 mg Cinacalcet (Sensipar) 30 mg PO DAILY [facility] Last Admin: 09/12/16 12:18 Dose: 30 mg Diltiazem HCl (Cardizem Cd) 240 mg PO DAILY [facility] Last Admin: 09/12/16 12:23 Dose: Not Given Docusate Sodium (Colace) 100 mg PO TID [facility] Last Admin: 09/12/16 18:22 Dose: 100 mg Epoetin Gilberto (Procrit) 10,000 unit IV MWF [facility] Last Admin: 09/12/16 17:19 Dose: 10,000 unit Ergocalciferol (Drisdol 50,000 Intl Units Cap) 50,000 cap PO QWK [facility] Last Admin: 09/09/16 22:38 Dose: 50,000 cap Famotidine (Pepcid) 20 mg PO DAILY [facility] Hydromorphone HCl (Dilaudid) 0.25 mg IVP Q6H PRN PRN Reason: Pain, moderate (4-7) Last Admin: 09/11/16 01:05 Dose: 0.25 mg Metoprolol Tartrate (Lopressor) 50 mg PO BID [facility] Last Admin: 09/12/16 18:22 Dose: 50 mg Tamsulosin HCl (Flomax) 0.4 mg PO DAILY [facility] Last Admin: 09/12/16 12:18 Dose: 0.4 mg Tiotropium [place] (Spiriva) 18 mcg INH RQD [facility] Last Admin: 09/12/16 14:39 Dose: Not Given - Labs Labs: 09/11/16 13:42 09/11/16 08:17 PT 10.8 SECONDS (9.7-12.2) 09/09/16 20:46 INR 1.0 09/09/16 20:46 - Head Exam Head Exam: ATRAUMATIC - Eye Exam Eye Exam: Normal appearance - ENT Exam ENT Exam: Mucous Membranes Dry - Respiratory Exam Respiratory Exam: NORMAL BREATHING PATTERN - Cardiovascular Exam Cardiovascular Exam: +S1, +S2 - GI/Abdominal Exam GI & Abdominal Exam: Normal Bowel Sounds - Extremities Exam Extremities Exam: Normal Inspection Assessment and Plan (1) Pancytopenia Assessment & Plan: bone marrow does not suggest over pathology will check US abdomen ?liver disease ?splenomegaly transfusion support PRN Status: Acute
[2016-09-13] MEDS ORDERED: ePHEDrine 50 mg/ml Inj ONE (07:34)
[2016-09-13] MEDS ORDERED: Phenylephrine 10 mg/ml Inj ONE (08:04)
[2016-09-13 08:38] LABS: BASO % 0.8 % (0.0-2.0); EOS # 0.2 K/uL (0.0-0.7); EOS % 5.1 % (0.0-4.0); HEMATOCRIT 30.7 % (35.0-51.0); LYMPH # 0.5 K/uL (1.0-4.3); LYMPH % 17.7 % (20.0-40.0); MEAN CELL VOLUME 93.4 fL (80.0-94.0); MEAN CORPUSCULAR HEMOGLOBIN 30.1 pg (27.0-31.0); MEAN CORPUSCULAR HGB CONC 32.3 g/dL (33.0-37.0); MONO # 0.4 K/uL (0.0-0.8); MONO % 13.1 % (0.0-10.0); NRBC % 0.1 % (0.0-2.0); RED CELL DISTRIBUTION WIDTH 16.9 % (11.5-14.5); WHITE BLOOD COUNT 2.9 K/uL (4.8-10.8)
[2016-09-13 08:47] LABS: POTASSIUM 4.6 mmol/L (3.6-5.2)
[2016-09-13 08:49] LABS: ALB/GLOB RATIO 1.5 (1.0-2.1); BILIRUBIN,TOTAL 0.7 mg/dL (0.2-1.3); PHOSPHOROUS 3.8 mg/dL (2.5-4.5); TOTAL PROTEIN 6.5 g/dL (6.3-8.3)
[2016-09-13 08:50] LABS: CALCIUM 8.8 mg/dl (8.6-10.4); MAGNESIUM 2.5 mg/dL (1.6-2.3)
[2016-09-13] MEDS ORDERED: Midazolam 2 MG/2 ML VIAL ONE ×2 (09:59→12:45)
--- NOTE | 2016-09-13 10:02 | CP.PCM.PN ---
Subjective - Date & Time of Evaluation Date of Evaluation: 09/13/16 Time of Evaluation: 10:01 - Subjective Subjective: Surgery: Dr. Altman Patient feels well today. Tolerated HD through catheter. Patient NPO midnight for IR procedure today. patient received platelet transfusion last night. Objective - Vital Signs/Intake and Output Vital Signs (last 24 hours): Temp Pulse Resp BP Pulse Ox 97.9 F 60 20 159/95 H 99 09/13/16 08:00 09/13/16 08:00 09/13/16 08:00 09/13/16 08:00 09/13/16 08:00 Intake and Output: 09/13/16 09/13/16 06:59 18:59 Intake Total 659 Balance 659 - Medications Medications: Current Medications Albuterol (Ventolin Hfa 90 Mcg/Actuation (8 G)) 2 puff IH RQ4 PRN PRN Reason: Cough and congestion Calcitriol (Rocaltrol) 0.25 mcg PO DAILY [facility] Last Admin: 09/12/16 12:18 Dose: 0.25 mcg Calcium Acetate (Phoslo) 667 mg PO TID [facility] Last Admin: 09/12/16 18:22 Dose: 667 mg Cinacalcet (Sensipar) 30 mg PO DAILY [facility] Last Admin: 09/12/16 12:18 Dose: 30 mg Diltiazem HCl (Cardizem Cd) 240 mg PO DAILY [facility] Last Admin: 09/12/16 12:23 Dose: Not Given Docusate Sodium (Colace) 100 mg PO TID [facility] Last Admin: 09/12/16 18:22 Dose: 100 mg Epoetin Gilberto (Procrit) 10,000 unit IV MWF [facility] Last Admin: 09/12/16 17:19 Dose: 10,000 unit Ergocalciferol (Drisdol 50,000 Intl Units Cap) 50,000 cap PO QWK [facility] Last Admin: 09/09/16 22:38 Dose: 50,000 cap Famotidine (Pepcid) 20 mg PO DAILY [facility] Hydralazine HCl (Apresoline) 25 mg PO TID [facility] Hydromorphone HCl (Dilaudid) 0.25 mg IVP Q6H PRN PRN Reason: Pain, moderate (4-7) Last Admin: 04/02/17 01:05 Dose: 0.25 mg Metoprolol Tartrate (Lopressor) 50 mg PO BID [facility] Last Admin: 09/12/16 18:22 Dose: 50 mg Tamsulosin HCl (Flomax) 0.4 mg PO DAILY [facility] Last Admin: 09/12/16 12:18 Dose: 0.4 mg Tiotropium [place] (Spiriva) 18 mcg INH RQD [facility] Last Admin: 09/12/16 14:39 Dose: Not Given - Labs Labs: 09/13/16 08:35 09/13/16 08:35 PT 10.8 SECONDS (9.7-12.2) 09/09/16 20:46 INR 1.0 09/09/16 20:46 - Constitutional Appears: Non-toxic, No Acute Distress - Head Exam Head Exam: ATRAUMATIC, NORMOCEPHALIC - Eye Exam Eye Exam: EOMI, Normal appearance - ENT Exam ENT Exam: Mucous Membranes Moist - Respiratory Exam Respiratory Exam: NORMAL BREATHING PATTERN. absent: Respiratory Distress - Cardiovascular Exam Cardiovascular Exam: REGULAR RHYTHM. absent: Tachycardia - Extremities Exam Additional comments: right groin site w/ small hematoma, resolving. mildly tender to palpation. - Neurological Exam Neurological Exam: Alert, Awake, Oriented x3 - Skin Skin Exam: Dry, Intact, Warm Assessment and Plan - Assessment and Plan (Free Text) Assessment: 61 y/o male w/ malfunctioning AVF s/p right femoral permacath insertion POD3 Plan: -f/u IR procedure -cont HD through permacath at this time -further recs per Dr. Agapito Soriano PGY1
--- NOTE | 2016-09-13 11:36 | CP.PCM.PN ---
Subjective - Date & Time of Evaluation Date of Evaluation: 09/13/16 Time of Evaluation: 07:35 - Subjective Subjective: PGY2 Medicine Note - Dr. Alcantara's service: Patient seen and examined in room. Patient has no complaints. He reports no pain , no hematuria, blood in stool, no chest pain, palpitations, or shortness of breath. Objective - Vital Signs/Intake and Output Vital Signs (last 24 hours): Temp Pulse Resp BP Pulse Ox 97.9 F 60 20 159/95 H 99 09/13/16 08:00 09/13/16 08:00 09/13/16 08:00 09/13/16 08:00 09/13/16 08:00 Intake and Output: 09/13/16 09/13/16 06:59 18:59 Intake Total 659 Balance 659 - Medications Medications: Current Medications Albuterol (Ventolin Hfa 90 Mcg/Actuation (8 G)) 2 puff IH RQ4 PRN PRN Reason: Cough and congestion Calcitriol (Rocaltrol) 0.25 mcg PO DAILY [facility] Last Admin: 09/12/16 12:18 Dose: 0.25 mcg Calcium Acetate (Phoslo) 667 mg PO TID [facility] Last Admin: 09/12/16 18:22 Dose: 667 mg Cinacalcet (Sensipar) 30 mg PO DAILY [facility] Last Admin: 09/12/16 12:18 Dose: 30 mg Diltiazem HCl (Cardizem Cd) 240 mg PO DAILY [facility] Last Admin: 09/12/16 12:23 Dose: Not Given Docusate Sodium (Colace) 100 mg PO TID [facility] Last Admin: 09/12/16 18:22 Dose: 100 mg Epoetin [place] (Procrit) 10,000 unit IV MWF [facility] Last Admin: 09/12/16 17:19 Dose: 10,000 unit Ergocalciferol (Drisdol 50,000 Intl Units Cap) 50,000 cap PO QWK [facility] Last Admin: 09/09/16 22:38 Dose: 50,000 cap Famotidine (Pepcid) 20 mg PO DAILY [facility] Hydralazine HCl (Apresoline) 25 mg PO TID [facility] Hydromorphone HCl (Dilaudid) 0.25 mg IVP Q6H PRN PRN Reason: Pain, moderate (4-7) Last Admin: 09/11/16 01:05 Dose: 0.25 mg Metoprolol Tartrate (Lopressor) 50 mg PO BID [facility] Last Admin: 09/12/16 18:22 Dose: 50 mg Tamsulosin HCl (Flomax) 0.4 mg PO DAILY [facility] Last Admin: 09/12/16 12:18 Dose: 0.4 mg Tiotropium [place] (Spiriva) 18 mcg INH RQD [facility] Last Admin: 09/12/16 14:39 Dose: Not Given - Labs Labs: 09/13/16 08:35 09/13/16 08:35 PT 10.8 SECONDS (9.7-12.2) 09/09/16 20:46 INR 1.0 09/09/16 20:46 - Constitutional Appears: Non-toxic, No Acute Distress - Head Exam Head Exam: NORMAL INSPECTION - Eye Exam Eye Exam: EOMI - ENT Exam ENT Exam: Mucous Membranes Moist - Respiratory Exam Respiratory Exam: Clear to Ausculation Bilateral, NORMAL BREATHING PATTERN. absent: Rales, Rhonchi, Wheezes - Cardiovascular Exam Cardiovascular Exam: REGULAR RHYTHM, +S1, +S2. absent: Gallop, Rubs, Murmur - GI/Abdominal Exam GI & Abdominal Exam: Soft, Normal Bowel Sounds. absent: Tenderness - Extremities Exam Extremities Exam: absent: Pedal Edema - Neurological Exam Neurological Exam: Alert, Oriented x3 - Psychiatric Exam Psychiatric exam: Normal Affect, Normal Mood - Skin Skin Exam: Pallor, Warm Assessment and Plan - Assessment and Plan (Free Text) Assessment: (1) AV fistula occlusion Assessment & Plan: 09/13: Platelets christine to 64 from 55. Will give another 3 units of platelets before IR proceudre with Dr. Benton 09/12: Patient is to go for surgery tomorrow with Dr. Benton, will give 1 unit of platlets today, have one on hand due to thrombocytopenia. Status: Acute (2) Thrombocytopenia Assessment & Plan: 09/13: Plts 64, giving 3 units of platelets Added "no heparin" to dialysis order F/U HIT abs F/U Hepatitis panel 09/12: Platlets at 55, give 1 unit, have one on had for surgery tomorrow. Status: Acute (3) ESRD (end stage renal disease) on dialysis Assessment & Plan: On Dialysis Status: Chronic (4) Hypertension Assessment & Plan: Lopressor 25mg bid Status: Chronic (5) Afib Assessment & Plan: Cardizem 240mg for rate control, no anticoagulation due to thrombocytopenia. Status: Chronic (6) BPH (benign prostatic hyperplasia) Assessment & Plan: Flomax 0.4mg Status: Chronic (7) COPD (chronic obstructive pulmonary disease) Assessment & Plan: Spirivia and Duoneb as needed. Status: Chronic (8) Prophylactic measure Assessment & Plan: withhold VTE due to thrombocytopenia pepcid 20mg SCDs Vitamin D and Dilauded for pain control Status: Acute
[2016-09-13] MEDS ORDERED: Lidocaine 2% Inj (20ml) ONE (12:48)
--- NOTE | 2016-09-13 12:48 | US ---
HISTORY: ?liver disease, ?splenomegaly COMPARISON: CT abdomen and pelvis without IV contrast performed 01/30/15 TECHNIQUE: Sonographic evaluation of the abdomen. FINDINGS: LIVER: Measures 15.2 cm in sagittal dimension. Echogenic liver may be seen in setting of hepatic parenchymal disease or fatty infiltration. No focal hepatic mass identified. The main portal vein appears patent with normal directional flow. No intrahepatic bile duct dilatation. GALLBLADDER: Gallstones. No gallbladder wall thickening. Negative sonographic Lyons's sign as assessed by the moss gatherer. COMMON BILE DUCT: Measures 4 mm. No stones. No dilatation. PANCREAS: Not well visualized. RIGHT KIDNEY: Measures 8.3 x 3.6 x 3.6cm. Cortical thinning. Mild right-sided hydronephrosis. 1.4 x 0.9 x 1.2 cm and 1.5 x 1.2 x 1.6 cm right midpole cysts. LEFT KIDNEY: Measures 10.3 x 4.7 x 4.6cm. Cortical thinning. 2.0 x 1.5 x 2.1 cm lower pole renal cysts. No obstructing calculus or hydronephrosis identified. SPLEEN: Measures approximately 21 cm. AORTA: Limited views appear unremarkable. IVC: Limited views appear unremarkable. OTHER FINDINGS: None. IMPRESSION: Cholelithiasis. Echogenic liver may be seen in setting of hepatic parenchymal disease or fatty infiltration. Findings compatible with cirrhosis including mildly nodular hepatic contour and splenomegaly. Bilateral renal cortical thinning. Bilateral renal cysts. Mild right-sided hydronephrosis.
[2016-09-13] MEDS ORDERED: Iodixanol 320 MG/ML 200 ML BOTTLE IV ONE (12:51)
[2016-09-13] MEDS ORDERED: ceFAZolin IV 1 gm in Dextrose 100 ML IVPB ONE (13:24)
--- NOTE | 2016-09-13 13:58 | PCM.SURG1 ---
Surgeon's Initial Post Op Note - Surgeon's Notes Surgeon: Enoch Benton MD [place]: NONE Type of Anesthesia: IV Sedation Pre-Operative Diagnosis: ESRD, thrombosed AVF Operative Findings: Thrombosed right AVF. Subclavian vein occlusion. Axillary vein stenosis. Post-Operative Diagnosis: ESRD, thrombosed AVF Operation Performed: Right AVF thrombectomy, LABORATORY MACHINIST axillary vein, subclavian vein , innominate vein. Intravascular stent suclavian vein and axillary vein. Specimen/Specimens Removed: NONE Estimated Blood Loss: EBL {In ML}: 5 Blood Products Given: N/A Drains Used: No Drains Post-Op Condition: Fair Date of Surgery/Procedure: 09/13/16 Time of Surgery/Procedure: 13:50
[2016-09-13] MEDS: Sodium Chloride 0.9% 1,000 ML IV SCH (15:00)
--- NOTE | 2016-09-13 15:14 | SPECPROC ---
PROCEDURE: Date of procedure: 09/13/2016 Procedure: 1. Hemodialysis AV fistulagram, CPT 07045 2. Additional SECOND puncture, CPT 37125 3. Thrombectomy, CPT 05439 4. MARINE ELECTRONICS REPAIRER outflow basilic vein stenosis, CPT 14482 5. MARINE ELECTRONICS REPAIRER subclavian vein stensosis 6. Intravascular stent placement subclavian vein Medications: The patient sedated by the anesthesiologist, 6 cc 2 percent lidocaine HISTORY: End-stage renal disease, thrombosed right arm AV fistula TECHNIQUE: Following informed consent and procedure time-out, the patient placed supine on the table and the right brachial basilic AV fistula was prepped and draped in the usual sterile fashion. The fistula was accessed with an 18 gauge angiocatheter and [address] flow was injected into the fistula. After 30 minutes, and the catheter is exchanged over wire for a 6 [place] vascular sheath. Through this sheath, a guidewire was advanced into the subclavian vein. A Berenstein catheter was advanced over the wire into axillary vein and a central venogram was performed. Central venogram showed a patent superior vena cava. The subclavian vein is occluded. The fistula was then accessed with a 2nd puncture at directed towards toward the anastomosis with micropuncture technique. The 5 [place] dilator was exchanged over an 035 wire for a 6 [place] vascular sheath. The Berenstein catheter was advanced through the sheath and over a wire into the brachial artery. A brachial artery angiogram performed. The brachial artery angiogram showed little flow into fistula significant thrombus throughout the fistula. Teena occluded subclavian vein was then treated with 9 millimeter balloon angioplasty with no improvement angiographic appearance. Axillary vein and basilic vein had 40 percent stenosis treated with 9 millimeter balloon angioplasty and 7 millimeter balloon angioplasty. 5.5 [place] Teri compliant balloon was positioned low at the arterial venous anastomosis inflated and thrombus was pulled into the fistula. The Teri compliant balloon reposition within the arterial and of the AV fistula inflated and portion centrally. The pull-push technique was repeated for thrombectomy. There is religious of flow fell throughout the fistula. An AV fistulogram was performed which showed good forward flow in AV fistula. There was poor flow centrally across the subclavian vein which again was occluded. The subclavian vein was again treated with prolonged balloon angioplasty with no improvement in angiographic appearance. Self expanding bare metal stents were placed across the subclavian vein measuring 12 millimeter proximally and 10 millimeters distally. The stents were dilated with a 10 millimeter balloon. Repeat fistulogram performed following thrombectomy, percutaneous balloon angioplasty and intravascular stent placement within the subclavian vein showed improved for flow across the subclavian vein with no residual thrombus or stenosis. The two 6 [place] vascular sheaths were removed and hemostasis achieved with manual compression. A dressing was applied. A thrill was present at the completion of the case IMPRESSION: Successful right arm AV fistula thrombectomy. 40 percent stenosis in the outflow basilic vein and axillary vein treated with percutaneous balloon angioplasty using a 7 millimeter balloon and 9 millimeter balloon respectively. Central venous occlusion, subclavian vein occlusion treated with prolonged balloon angioplasty using a 9 millimeter and 10 millimeter balloon with no improvement. This require placement of an abscess expanding intravascular stent. There is successful recanalization of the subclavian vein. Normal brachial artery
[2016-09-13] MEDS: diltiaZEM 240 mg/24 Hours CD Cap PO SCH (18:14)
--- NOTE | 2016-09-13 21:51 | CP.PCM.PN ---
Subjective - Date & Time of Evaluation Date of Evaluation: 09/13/16 Time of Evaluation: 13:00 - Subjective Subjective: No complaints, for IR today Objective - Vital Signs/Intake and Output Vital Signs (last 24 hours): Temp Pulse Resp BP Pulse Ox 97.4 F L 63 20 164/88 H 98 09/13/16 16:00 09/13/16 16:00 09/13/16 16:00 09/13/16 16:00 09/13/16 16:00 - Medications Medications: Current Medications Albuterol (Ventolin Hfa 90 Mcg/Actuation (8 G)) 2 puff IH RQ4 PRN PRN Reason: Cough and congestion Calcitriol (Rocaltrol) 0.25 mcg PO DAILY [facility] Last Admin: 09/13/16 18:14 Dose: 0.25 mcg Calcium Acetate (Phoslo) 667 mg PO TID [facility] Last Admin: 09/13/16 18:09 Dose: 667 mg Cinacalcet (Sensipar) 30 mg PO DAILY [facility] Last Admin: 09/13/16 18:10 Dose: 30 mg Diltiazem HCl (Cardizem Cd) 240 mg PO DAILY [facility] Last Admin: 09/13/16 18:14 Dose: 240 mg Docusate Sodium (Colace) 100 mg PO TID [facility] Last Admin: 09/13/16 18:10 Dose: 100 mg Epoetin Gilberto (Procrit) 10,000 unit IV MWF [facility] Last Admin: 09/12/16 17:19 Dose: 10,000 unit Ergocalciferol (Drisdol 50,000 Intl Units Cap) 1 cap PO QWK [facility] Famotidine (Pepcid) 20 mg PO DAILY [facility] Hydralazine HCl (Apresoline) 25 mg PO TID [facility] Last Admin: 09/13/16 18:09 Dose: 25 mg Hydromorphone HCl (Dilaudid) 0.25 mg IVP Q6H PRN PRN Reason: Pain, moderate (4-7) Last Admin: 09/11/16 01:05 Dose: 0.25 mg Sodium Chloride (Sodium Chloride 0.9%) 1,000 mls @ 20 mls/hr IV .Q24H [facility] Metoprolol Tartrate (Lopressor) 50 mg PO BID [facility] Last Admin: 09/13/16 18:10 Dose: 50 mg Tamsulosin HCl (Flomax) 0.4 mg PO DAILY [facility] Last Admin: 09/13/16 18:10 Dose: 0.4 mg Tiotropium [place] (Spiriva) 18 mcg INH RQD [facility] Last Admin: 09/12/16 14:39 Dose: Not Given - Labs Labs: 09/13/16 08:35 09/13/16 08:35 PT 10.8 SECONDS (9.7-12.2) 09/09/16 20:46 INR 1.0 09/09/16 20:46 - Head Exam Head Exam: ATRAUMATIC - Eye Exam Eye Exam: Normal appearance - ENT Exam ENT Exam: Mucous Membranes Dry - Respiratory Exam Respiratory Exam: NORMAL BREATHING PATTERN - Cardiovascular Exam Cardiovascular Exam: +S1, +S2 - GI/Abdominal Exam GI & Abdominal Exam: Normal Bowel Sounds - Extremities Exam Extremities Exam: Pedal Edema Assessment and Plan (1) Pancytopenia Assessment & Plan: no overt abnormalities by bone marrow biopsy ultrasound suggestive of liver cirrhosis and splenomegaly platelet transfusion for IR procedure Status: Acute
[2016-09-14 06:43] LABS: EOS # 0.2 K/uL (0.0-0.7); LYMPH # 0.5 K/uL (1.0-4.3); WHITE BLOOD COUNT 2.8 K/uL (4.8-10.8)
[2016-09-14 06:50] LABS: BASO % 0.6 % (0.0-2.0); EOS % 6.7 % (0.0-4.0); HEMATOCRIT 30.8 % (35.0-51.0); LYMPH % 17.3 % (20.0-40.0); MEAN CELL VOLUME 94.1 fL (80.0-94.0); MEAN CORPUSCULAR HEMOGLOBIN 30.7 pg (27.0-31.0); MEAN CORPUSCULAR HGB CONC 32.6 g/dL (33.0-37.0); MEAN PLATELET VOLUME 10.7 fL (7.2-11.7); MONO # 0.4 K/uL (0.0-0.8); MONO % 13.5 % (0.0-10.0); NRBC % 0.1 % (0.0-2.0)
[2016-09-14 06:53] LABS: POTASSIUM 4.7 mmol/L (3.6-5.2)
[2016-09-14 06:56] LABS: ALB/GLOB RATIO 1.5 (1.0-2.1); BILIRUBIN,TOTAL 0.8 mg/dL (0.2-1.3); CALCIUM 8.3 mg/dl (8.6-10.4); TOTAL PROTEIN 6.2 g/dL (6.3-8.3)
[2016-09-14] MEDS: Tiotropium 18 mcg Cap For Inhalation INH SCH (08:44)
[2016-09-14] MEDS ORDERED: Epoetin Alfa 10,000 unit/ml Dialysis IV SCH (09:00)
--- NOTE | 2016-09-14 09:07 | CP.PCM.PN ---
Subjective - Date & Time of Evaluation Date of Evaluation: 09/14/16 Time of Evaluation: 07:30 - Subjective Subjective: Medicine Progress Note- Dr Alcantara's service Patient seen and examined. Patient eating breakfast this morning with no acute complaints. Pt is s/p Right AVF thrombectomy yesterday with IR. He denies bleeding, arm pain, swelling, chest pain, shortness of breath, abdominal pain, dizziness, palpitations, and headache. He is scheduled for HD today. Patient may be discharged home after HD. Objective - Vital Signs/Intake and Output Vital Signs (last 24 hours): Temp Pulse Resp BP Pulse Ox 98.2 F 60 20 158/84 H 97 09/14/16 00:01 09/14/16 00:01 09/14/16 00:01 09/14/16 00:01 09/14/16 00:01 Intake and Output: 09/14/16 09/14/16 06:59 18:59 Intake Total 160 Balance 160 - Medications Medications: Current Medications Albuterol (Ventolin Hfa 90 Mcg/Actuation (8 G)) 2 puff IH RQ4 PRN PRN Reason: Cough and congestion Calcitriol (Rocaltrol) 0.25 mcg PO DAILY [facility] Last Admin: 09/13/16 18:14 Dose: 0.25 mcg Calcium Acetate (Phoslo) 667 mg PO TID [facility] Last Admin: 09/13/16 18:09 Dose: 667 mg Cinacalcet (Sensipar) 30 mg PO DAILY [facility] Last Admin: 09/13/16 18:10 Dose: 30 mg Diltiazem HCl (Cardizem Cd) 240 mg PO DAILY [facility] Last Admin: 09/13/16 18:14 Dose: 240 mg Docusate Sodium (Colace) 100 mg PO TID [facility] Last Admin: 09/13/16 18:10 Dose: 100 mg Epoetin Gilberto (Procrit) 10,000 unit IV MWF [facility] Last Admin: 09/12/16 17:19 Dose: 10,000 unit Ergocalciferol (Drisdol 50,000 Intl Units Cap) 1 cap PO QWK [facility] Famotidine (Pepcid) 20 mg PO DAILY [facility] Hydralazine HCl (Apresoline) 25 mg PO TID [facility] Last Admin: 09/13/16 18:09 Dose: 25 mg Hydromorphone HCl (Dilaudid) 0.25 mg IVP Q6H PRN PRN Reason: Pain, moderate (4-7) Last Admin: 09/11/16 01:05 Dose: 0.25 mg Sodium Chloride (Sodium Chloride 0.9%) 1,000 mls @ 20 mls/hr IV .Q24H [facility] Last Admin: 09/13/16 15:00 Dose: 20 mls/hr Metoprolol Tartrate (Lopressor) 50 mg PO BID [facility] Last Admin: 09/13/16 18:10 Dose: 50 mg Tamsulosin HCl (Flomax) 0.4 mg PO DAILY [facility] Last Admin: 09/13/16 18:10 Dose: 0.4 mg Tiotropium [place] (Spiriva) 18 mcg INH RQD [facility] Last Admin: 09/14/16 08:44 Dose: Not Given - Labs Labs: 09/14/16 06:31 09/14/16 06:31 PT 10.8 SECONDS (9.7-12.2) 09/09/16 20:46 INR 1.0 09/09/16 20:46 - Constitutional Appears: Non-toxic, No Acute Distress - Head Exam Head Exam: ATRAUMATIC, NORMOCEPHALIC - Eye Exam Eye Exam: EOMI, Normal appearance - ENT Exam ENT Exam: Mucous Membranes Moist - Respiratory Exam Respiratory Exam: Clear to Ausculation Bilateral, NORMAL BREATHING PATTERN. absent: Rhonchi, Wheezes, Respiratory Distress - Cardiovascular Exam Cardiovascular Exam: REGULAR RHYTHM, +S1, +S2 - GI/Abdominal Exam GI & Abdominal Exam: Soft, Normal Bowel Sounds. absent: Tenderness - Extremities Exam Additional comments: R arm AV fistula: + bruit, + thrill - Neurological Exam Neurological Exam: Alert, Awake, CN II-XII Intact, Oriented x3 - Psychiatric Exam Psychiatric exam: Normal Affect, Normal Mood Assessment and Plan - Assessment and Plan (Free Text) Assessment: (1) AV fistula occlusion Assessment & Plan: 09/14: s/p R AV fistula thrombectomy yesterday. Patient did not receive platelets prior to procedure per Dr Benton's recommendations. 09/13: Platelets christine to 64 from 55. 09/12: Patient is to go for surgery tomorrow with Dr. Benton, will give 1 unit of platlets today, have one on hand due to thrombocytopenia. Status: Acute (2) Thrombocytopenia Assessment & Plan: 09/14: Platelets 67, slowly improving. Workup per Dr Brantley- no overt abnormalities by bone marrow biopsy; however, ultrasound suggestive of liver cirrhosis and splenomegaly. 09/13: Plts 64, giving 3 units of platelets Added "no heparin" to dialysis order F/U HIT abs F/U Hepatitis panel 09/12: Platlets at 55, give 1 unit, have one on had for surgery tomorrow. Status: Acute (3) ESRD (end stage renal disease) on dialysis Assessment & Plan: On Dialysis, management per nephro Status: Chronic (4) Hypertension Assessment & Plan: Lopressor 25mg bid Status: Chronic (5) Afib Assessment & Plan: Cardizem 240mg for rate control, no anticoagulation due to thrombocytopenia. Status: Chronic (6) BPH (benign prostatic hyperplasia) Assessment & Plan: Flomax 0.4mg Status: Chronic (7) COPD (chronic obstructive pulmonary disease) Assessment & Plan: Spirivia and Duoneb as needed. Status: Chronic (8) Prophylactic measure Assessment & Plan: withhold VTE due to thrombocytopenia pepcid 20mg SCDs Management and care per Dr Alcantara. Discussed with attending.
--- NOTE | 2016-09-14 09:21 | CP.PCM.PN ---
Subjective - Date & Time of Evaluation Date of Evaluation: 09/14/16 Time of Evaluation: 07:30 - Subjective Subjective: Vascualr Surgery Dr. Atlman Pt S&E @bedside. Successful embolization/angio yesterday by IR. pt tolerated the procedure well. NAEO. no complaints. denies arm pain, N/V, F/C. tolerating diet. Permacath present R groin. Objective - Vital Signs/Intake and Output Vital Signs (last 24 hours): Temp Pulse Resp BP Pulse Ox 98.2 F 60 20 158/84 H 97 09/14/16 00:01 09/14/16 00:01 09/14/16 00:01 09/14/16 00:01 09/14/16 00:01 Intake and Output: 09/14/16 09/14/16 06:59 18:59 Intake Total 160 Balance 160 - Medications Medications: Current Medications Albuterol (Ventolin Hfa 90 Mcg/Actuation (8 G)) 2 puff IH RQ4 PRN PRN Reason: Cough and congestion Calcitriol (Rocaltrol) 0.25 mcg PO DAILY [facility] Last Admin: 09/13/16 18:14 Dose: 0.25 mcg Calcium Acetate (Phoslo) 667 mg PO TID [facility] Last Admin: 09/13/16 18:09 Dose: 667 mg Cinacalcet (Sensipar) 30 mg PO DAILY [facility] Last Admin: 09/13/16 18:10 Dose: 30 mg Diltiazem HCl (Cardizem Cd) 240 mg PO DAILY [facility] Last Admin: 09/13/16 18:14 Dose: 240 mg Docusate Sodium (Colace) 100 mg PO TID [facility] Last Admin: 09/13/16 18:10 Dose: 100 mg Epoetin Gilberto (Procrit) 10,000 unit IV MWF [facility] Last Admin: 09/12/16 17:19 Dose: 10,000 unit Ergocalciferol (Drisdol 50,000 Intl Units Cap) 1 cap PO QWK [facility] Famotidine (Pepcid) 20 mg PO DAILY [facility] Hydralazine HCl (Apresoline) 25 mg PO TID [facility] Last Admin: 09/13/16 18:09 Dose: 25 mg Hydromorphone HCl (Dilaudid) 0.25 mg IVP Q6H PRN PRN Reason: Pain, moderate (4-7) Last Admin: 09/11/16 01:05 Dose: 0.25 mg Sodium Chloride (Sodium Chloride 0.9%) 1,000 mls @ 20 mls/hr IV .Q24H [facility] Last Admin: 09/13/16 15:00 Dose: 20 mls/hr Metoprolol Tartrate (Lopressor) 50 mg PO BID [facility] Last Admin: 09/13/16 18:10 Dose: 50 mg Tamsulosin HCl (Flomax) 0.4 mg PO DAILY [facility] Last Admin: 09/13/16 18:10 Dose: 0.4 mg Tiotropium [place] (Spiriva) 18 mcg INH RQD [facility] Last Admin: 09/14/16 08:44 Dose: Not Given - Labs Labs: 09/14/16 06:31 09/14/16 06:31 Laboratory Tests 09/14/16 06:31 Calcium 8.3 L Total Bilirubin 0.8 AST 17 ALT 19 L Alkaline Phosphatase 60 Total Protein 6.2 L Albumin 3.7 - Constitutional Appears: Non-toxic, No Acute Distress - Head Exam Head Exam: NORMAL INSPECTION - Eye Exam Eye Exam: Normal appearance - ENT Exam ENT Exam: Mucous Membranes Moist - Respiratory Exam Respiratory Exam: NORMAL BREATHING PATTERN. absent: Accessory Muscle Use, Respiratory Distress - GI/Abdominal Exam GI & Abdominal Exam: Soft. absent: Distended - Extremities Exam Additional comments: R arm dressing c/d/i pulses palpable - Neurological Exam Neurological Exam: Alert, Awake, Oriented x3 - Psychiatric Exam Psychiatric exam: Normal Affect, Normal Mood - Skin Skin Exam: Dry, Intact, Normal Color, Warm Assessment and Plan - Assessment and Plan (Free Text) Assessment: 61 y/o M w/ malfunctioning AVF s/p right femoral permacath insertion POD#4 and IR embolization - f/u HD through AVF today - will D/C permacath if no issues during HD Further recs per Dr. Agapito Mcnultyik PGY1
[2016-09-14] MEDS: Epoetin Alfa 10,000 unit/ml Dialysis IV SCH (12:23)
--- NOTE | 2016-09-14 13:27 | CP.PCM.PN ---
Subjective - Date & Time of Evaluation Date of Evaluation: 09/14/16 Time of Evaluation: 13:23 - Subjective Subjective: s/p dialysis now- used 2 needles av fistula right arm s/p plat transfusion, av fistula thrombectomy low plats likely from cirrhosis feels well post dialysis no SOB, CPs, n, v, diarrhea Objective - Vital Signs/Intake and Output Vital Signs (last 24 hours): Temp Pulse Resp BP Pulse Ox 97.9 F 65 16 155/82 H 97 09/14/16 09:07 09/14/16 09:07 09/14/16 09:07 09/14/16 11:38 09/14/16 09:07 Intake and Output: 09/14/16 09/14/16 06:59 18:59 Intake Total 160 Balance 160 - Medications Medications: Current Medications Albuterol (Ventolin Hfa 90 Mcg/Actuation (8 G)) 2 puff IH RQ4 PRN PRN Reason: Cough and congestion Calcitriol (Rocaltrol) 0.25 mcg PO DAILY [facility] Last Admin: 09/13/16 18:14 Dose: 0.25 mcg Calcium Acetate (Phoslo) 667 mg PO TID [facility] Last Admin: 09/14/16 11:26 Dose: Not Given Cinacalcet (Sensipar) 30 mg PO DAILY [facility] Last Admin: 09/13/16 18:10 Dose: 30 mg Diltiazem HCl (Cardizem Cd) 240 mg PO DAILY [facility] Last Admin: 09/13/16 18:14 Dose: 240 mg Docusate Sodium (Colace) 100 mg PO TID [facility] Last Admin: 09/14/16 11:26 Dose: Not Given Epoetin Gilberto (Procrit) 10,000 unit IV MWF [facility] Last Admin: 09/14/16 12:23 Dose: 10,000 unit Ergocalciferol (Drisdol 50,000 Intl Units Cap) 1 cap PO QWK [facility] Famotidine (Pepcid) 20 mg PO DAILY [facility] Hydralazine HCl (Apresoline) 25 mg PO TID [facility] Last Admin: 09/14/16 11:25 Dose: Not Given Sodium Chloride (Sodium Chloride 0.9%) 1,000 mls @ 20 mls/hr IV .Q24H [facility] Last Admin: 09/13/16 15:00 Dose: 20 mls/hr Metoprolol Tartrate (Lopressor) 50 mg PO BID [facility] Last Admin: 09/14/16 11:26 Dose: Not Given Tamsulosin HCl (Flomax) 0.4 mg PO DAILY [facility] Last Admin: 09/13/16 18:10 Dose: 0.4 mg Tiotropium [place] (Spiriva) 18 mcg INH RQD [facility] Last Admin: 09/14/16 08:44 Dose: Not Given - Labs Labs: 09/14/16 06:31 09/14/16 06:31 PT 10.8 SECONDS (9.7-12.2) 09/09/16 20:46 INR 1.0 09/09/16 20:46 - Constitutional Appears: No Acute Distress, Chronically Ill - Head Exam Head Exam: ATRAUMATIC, NORMAL INSPECTION - Eye Exam Eye Exam: EOMI, Normal appearance - Neck Exam Neck Exam: Normal Inspection. absent: Tenderness - Respiratory Exam Respiratory Exam: Clear to Ausculation Bilateral, NORMAL BREATHING PATTERN - Cardiovascular Exam Cardiovascular Exam: REGULAR RHYTHM, +S1 - GI/Abdominal Exam GI & Abdominal Exam: Soft. absent: Tenderness - Extremities Exam Extremities Exam: Normal Inspection. absent: Tenderness - Neurological Exam Neurological Exam: Awake, CN II-XII Intact - Skin Skin Exam: Dry, Warm Assessment and Plan (1) AV fistula occlusion Status: Acute (2) ESRD (end stage renal disease) on dialysis Status: Chronic (3) Enlarged prostate Status: Acute (4) Secondary hyperparathyroidism Status: Acute - Assessment and Plan (Free Text) Plan: Would d/c permcath prior to discharge Monitor plats at outpt dialysis Use lowest dose heparin possible Bruit is weak- will need to monitor for further thrombosis of fistula
[2016-09-14] MEDS: diltiaZEM 240 mg/24 Hours CD Cap PO SCH (13:40)
[2016-09-14] MEDS: Sodium Chloride 0.9% 1,000 ML IV SCH (13:41)
[2016-09-14 13:55] VITALS: BP 149/83
[2016-09-14 18:00] VITALS: PULSE 74; RESP 20; TEMP 98.5; O2SAT 98
[2016-09-16] MEDS ORDERED: Ergocalciferol 50,000 Intl Units Cap PO SCH (10:00)
--- NOTE | 2016-10-03 10:00 | DS ---
The patient admitted to the hospital with chief complaint of generalized weakness, fatigue, tiredness . The patient placed on bedrest, supportive care. Discharged to be followed as outpatient. Shabana Galeas MD cc: [id number] TT: 10/02/2016 22:25:31 sn
== END 2016-09-14 18:45 | disposition home or self-care (01) | DRG 315 ==
LOC: C.ER 17:09 → OBSVTOIN 19:06 → C.9E 19:06 → C.3T 20:29
PROVIDERS: ADMIT Internal Medicine; ATTEND Internal Medicine Pulmonary Disease
PROC: 05753DZ Dilation of Right Subclavian Vein with Intraluminal Device, Percutaneous Approach (ICD-10-PCS; 2016-09-10)
PROC: 02HV33Z Insertion of Infusion Device into Superior Vena Cava, Percutaneous Approach (ICD-10-PCS; 2016-09-10)
PROC: B548ZZA Ultrasonography of Superior Vena Cava, Guidance (ICD-10-PCS; 2016-09-10)
PROC: 057B3ZZ Dilation of Right Basilic Vein, Percutaneous Approach (ICD-10-PCS; 2016-09-10)
PROC: B518ZZZ Fluoroscopy of Superior Vena Cava (ICD-10-PCS; 2016-09-10)
PROC: B51W1ZZ Fluoroscopy of Dialysis Shunt/Fistula using Low Osmolar Contrast (ICD-10-PCS; 2016-09-10)
PROC: 30233R1 Transfusion of Nonautologous Platelets into Peripheral Vein, Percutaneous Approach (ICD-10-PCS; 2016-09-10)
PROC: 5A1D60Z (ICD-10-PCS; principal; 2016-09-10 09:30)
DX: T82.898A Other specified complication of vascular prosthetic devices, implants and grafts, initial encounter (principal); D61.818 Other pancytopenia; N18.6 End stage renal disease; I12.0 Hypertensive chronic kidney disease with stage 5 chronic kidney disease or end stage renal disease; D69.59 Other secondary thrombocytopenia; J44.9 Chronic obstructive pulmonary disease, unspecified; I48.91 Unspecified atrial fibrillation; E78.5 Hyperlipidemia, unspecified; Z99.2 Dependence on renal dialysis; Z86.11 Personal history of tuberculosis; Z87.01 Personal history of pneumonia (recurrent); Z87.442 Personal history of urinary calculi; Z92.21 Personal history of antineoplastic chemotherapy; Z85.72 Personal history of non-Hodgkin lymphomas; Z87.891 Personal history of nicotine dependence

== ENCOUNTER 2016-12-06 03:44 | Emergency (ER) | payer MEDICAID ==
[2016-12-06 03:47] VITALS: PULSE 140; BMI 26.8
[2016-12-06 04:04] VITALS: TEMP 98.5
--- NOTE | 2016-12-06 04:40 | C.PDOC ---
History Of Present Illness Patient presents to the ER with a complaint of bleeding from his dialysis shunt ; no active bleeding at this time. Denies any other physical complaints at this time. Time Seen by Provider: 12/06/16 04:40 Chief Complaint (Nursing): Abnormal Skin Integrity History Per: Patient History/Exam Limitations: no limitations Onset/Duration Of Symptoms: Hrs Current Symptoms Are (Timing): Still Present Location Of Injury: Right: Arm Severity: None Pain Scale Rating Of: 0 Recent travel outside of the [place]: No Past Medical History Reviewed: Historical Data, Nursing Documentation, Vital Signs Vital Signs: Last Vital Signs Temp 98.5 F 12/06/16 04:00 Pulse 84 12/06/16 04:00 Resp 16 12/06/16 04:00 BP 148/85 12/06/16 04:00 Pulse Ox 98 12/06/16 05:37 - Medical History PMH: Anemia, Atrial Fibrillation, COPD, HTN, Hypercholesterolemia, Hyperlipidemia, End Stage Renal Disease, Chronic Kidney Disease Surgical History: Endoscopy - [facility] Procedures DIALYSIS ARTERIOVENOSTOM (01/22/15) DILATION OF R SUBCLAV VEIN WITH INTRALUM DEV, PERC APPROACH (09/09/16) DILATION OF RIGHT BASILIC VEIN, PERCUTANEOUS APPROACH (09/09/16) FLUOROSCOPY OF DIALYSIS SHUNT/FISTULA USING L OSM CONTRAST (09/09/16) FLUOROSCOPY OF SUPERIOR VENA CAVA (09/09/16) HEMODIALYSIS (01/30/15) INSERTION OF INFUSION DEV INTO SUP VENA CAVA, PERC APPROACH (09/09/16) PACKED CELL TRANSFUSION (11/05/14) PERFORMANCE OF URINARY FILTRATION, MULTIPLE (09/09/16) PERFORMANCE OF URINARY FILTRATION, SINGLE (02/29/16) TRANSFUSE NONAUT PLATELETS IN PERIPH VEIN, PERC (09/09/16) ULTRASONOGRAPHY OF SUPERIOR VENA CAVA, GUIDANCE (09/09/16) VENOUS CATHETERIZATION FOR RENAL DIALYSIS (11/05/14) Family History: States: No Known Family Hx - Social History Hx Tobacco Use: No (Quit years ago) Hx Alcohol Use: No - Immunization History Hx Tetanus Toxoid Vaccination: Yes Hx Influenza Vaccination: Yes Hx Pneumococcal Vaccination: Yes Review Of Systems Constitutional: Negative for: Fever, Chills Gastrointestinal: Negative for: Nausea, Vomiting, Diarrhea Musculoskeletal: Positive for: Other (Bleeding from right arm AV shunt) Physical Exam - Physical Exam Appears: Non-toxic, No Acute Distress Skin: Warm, Dry Oral Mucosa: Moist Chest: Symmetrical, No Tenderness Cardiovascular: Rhythm Regular, No Murmur Respiratory: No Rales, No Rhonchi, No Wheezing Gastrointestinal/Abdominal: Soft, No Tenderness Extremity: Other (AV shunt on right arm) Pulses: Left Radial: Normal, Right Radial: Normal Neurological/Psych: Oriented x3 ED Course And Treatment O2 Sat by Pulse Oximetry: 98 (Room air) Pulse Ox Interpretation: Normal Disposition Counseled Patient/Family Regarding: Studies Performed, Diagnosis, Need For Followup - Disposition Referrals: Gogo Valentin [Staff Provider] - Disposition: HOME/ ROUTINE Disposition Time: 04:40 Condition: FAIR Instructions: Arm Pain (ED) - Clinical Impression Clinical Impression: Bleeding from dialysis shunt - Scribe Statement The provider has reviewed the documentation as recorded by the Scribe Satnam Rodriguez All medical record entries made by the Scribe were at my direction and personally dictated by me. I have reviewed the chart and agree that the record accurately reflects my personal performance of the history, physical exam, medical decision making, and the department course for this patient. I have also personally directed, reviewed, and agree with the discharge instructions and disposition.
[2016-12-06 05:57] VITALS: BP 141/76; PULSE 75; RESP 18; O2SAT 99
== END 2016-12-06 05:57 | disposition home or self-care (01) ==
LOC: C.ER 03:44
DX: T82.838A Hemorrhage due to vascular prosthetic devices, implants and grafts, initial encounter (principal); Y84.8 Other medical procedures as the cause of abnormal reaction of the patient, or of later complication, without mention of misadventure at the time of the procedure; Y92.89 Other specified places as the place of occurrence of the external cause

== ENCOUNTER 2016-12-23 18:46 | Inpatient (IN) | payer MEDICAID ==
[2016-12-23 18:47] VITALS: PULSE 140; BMI 26.8
--- NOTE | 2016-12-23 19:12 | C.PDOC ---
History Of Present Illness A 61 y/o M with a Hx of dialysis, c/o SOB that began earlier today. Pt was suppose to have dialysis today, but his AV shunt was clouded on the right forearm. Denies chest pain, diaphoresis, palpitations, abdominal pain, dizziness , lightheadedness, fever, or chills. Time Seen by Provider: 12/23/16 19:10 Chief Complaint (Nursing): Shortness Of Breath History Per: Patient History/Exam Limitations: no limitations Onset/Duration Of Symptoms: Hrs Current Symptoms Are (Timing): Still Present Severity: Mild Associated Symptoms: denies: Fever, Chills, Chest Pain Recent travel outside of the [place]: No Additional History Per: Patient Past Medical History Reviewed: Historical Data, Nursing Documentation, Vital Signs Vital Signs: Last Vital Signs Temp 98.7 F 12/23/16 18:58 Pulse 107 H 12/23/16 18:58 Resp 20 12/23/16 19:06 BP 164/87 H 12/23/16 18:58 Pulse Ox 95 12/23/16 19:14 - Medical History PMH: Anemia, Atrial Fibrillation, COPD, HTN, Hypercholesterolemia, Hyperlipidemia, End Stage Renal Disease, Chronic Kidney Disease Surgical History: Endoscopy - [facility] Procedures DIALYSIS ARTERIOVENOSTOM (01/22/15) DILATION OF R SUBCLAV VEIN WITH INTRALUM DEV, PERC APPROACH (09/09/16) DILATION OF RIGHT BASILIC VEIN, PERCUTANEOUS APPROACH (09/09/16) FLUOROSCOPY OF DIALYSIS SHUNT/FISTULA USING L OSM CONTRAST (09/09/16) FLUOROSCOPY OF SUPERIOR VENA CAVA (09/09/16) HEMODIALYSIS (01/30/15) INSERTION OF INFUSION DEV INTO SUP VENA CAVA, PERC APPROACH (09/09/16) PACKED CELL TRANSFUSION (11/05/14) PERFORMANCE OF URINARY FILTRATION, MULTIPLE (09/09/16) PERFORMANCE OF URINARY FILTRATION, SINGLE (02/29/16) TRANSFUSE NONAUT PLATELETS IN PERIPH VEIN, PERC (09/09/16) ULTRASONOGRAPHY OF SUPERIOR VENA CAVA, GUIDANCE (09/09/16) VENOUS CATHETERIZATION FOR RENAL DIALYSIS (11/05/14) Family History: States: Unknown Family Hx - Social History Hx Tobacco Use: No (Quit years ago) Hx Alcohol Use: No Hx Substance Use: No - Immunization History Hx Tetanus Toxoid Vaccination: Yes Hx Influenza Vaccination: Yes Hx Pneumococcal Vaccination: Yes Review Of Systems Except As Marked, All Systems Reviewed And Found Negative. Constitutional: Negative for: Fever, Chills, Sweats Cardiovascular: Negative for: Chest Pain, Palpitations, Light Headedness Respiratory: Positive for: Shortness of Breath Gastrointestinal: Negative for: Abdominal Pain Neurological: Negative for: Dizziness Physical Exam - Physical Exam Appears: Non-toxic, No Acute Distress Skin: Warm, Dry Head: Atraumatic, Normacephalic Eye(s): bilateral: Normal Inspection Oral Mucosa: Moist Chest: Symmetrical Cardiovascular: Rhythm Regular Respiratory: Normal Breath Sounds, No Accessory Muscle Use, No Rales, No Rhonchi , No Wheezing Gastrointestinal/Abdominal: Soft, No Tenderness Extremity: Normal ROM, Capillary Refill (<2secs), Other (Thrill on the distal portion on the shunt. No pulsation on the proximal aspect of the shunt. ) Extremity: Bilateral: Normal Color And Temperature Neurological/Psych: Oriented x3, Normal Speech, Normal Cognition, Normal Motor, Normal Sensation, Other (No focal deficit) Gait: Steady ED Course And Treatment - Laboratory Results Result Diagrams: 12/23/16 19:34 12/23/16 19:34 O2 Sat by Pulse Oximetry: 95 (RA) Pulse Ox Interpretation: Normal Medical Decision Making Medical Decision Making: Impression: A 61 y/o M with a Hx of dialysis, c/o SOB that began earlier today. Pt was suppose to have dialysis today, but his AV shunt was clouded on the right forearm. Plans: -EKG -Blood labs -CXR -IV fluids Disposition Discussed With DrGil: Jered Moses Doctor Will See Patient In The: Hospital Counseled Patient/Family Regarding: Diagnosis - Disposition Referrals: Anselmo Altman Jr., MD [Staff Provider] - Disposition: HOSPITALIZED Disposition Time: 20:09 Condition: STABLE - POA Present On Arrival: [facility] - Clinical Impression Clinical Impression: ESRD (end stage renal disease) on dialysis, Dialysis AV fistula malfunction - Scribe Statement The provider has reviewed the documentation as recorded by the Scribjoe fulton All medical record entries made by the Scribe were at my direction and personally dictated by me. I have reviewed the chart and agree that the record accurately reflects my personal performance of the history, physical exam, medical decision making, and the department course for this patient. I have also personally directed, reviewed, and agree with the discharge instructions and disposition.
[2016-12-23 19:44] LABS: BASO % 0.9 % (0.0-2.0); EOS # 0.3 K/uL (0.0-0.7); EOS % 7.1 % (0.0-4.0); HEMOGLOBIN 11.5 g/dL (12.0-18.0); LYMPH # 0.6 K/uL (1.0-4.3); LYMPH % 16.9 % (20.0-40.0); MEAN CORPUSCULAR HEMOGLOBIN 30.1 pg (27.0-31.0); MEAN CORPUSCULAR HGB CONC 32.4 g/dL (33.0-37.0); MEAN PLATELET VOLUME 9.8 fL (7.2-11.7); MONO # 0.3 K/uL (0.0-0.8); MONO % 7.5 % (0.0-10.0); NEUT # 2.5 K/uL (1.8-7.0); NEUT % 67.6 % (50.0-75.0); NRBC % 0.1 % (0.0-2.0); RBC 3.81 Mil/uL (4.40-5.90); WHITE BLOOD COUNT 3.7 K/uL (4.8-10.8)
[2016-12-23 19:45] LABS: ALBUMIN 3.6 g/dL (3.5-5.0)
[2016-12-23 19:48] LABS: ALB/GLOB RATIO 1.5 (1.0-2.1)
[2016-12-23 19:49] LABS: CALCIUM 8.8 mg/dl (8.6-10.4); PROTHROMBIN TIME 11.5 SECONDS (9.7-12.2)
--- NOTE | 2016-12-23 21:31 | CP.PCM.CON ---
History of Present Illness - History of Present Illness History of Present Illness: Vascular surgery consult note for Dr. Roselyn Christine, PGY-1 Pt S & E at bedside. 61M w/PMH sig for ESRD on HD consulted for non-functional RUE Hybrid AV shunt. Pt reports he went to dialysis on Monday and had dialysis. When pt went to dialysis today, it was not functioning/clotted. Admits to SOB. Denies N/V/F/C , CP, palpitations, recent illness, changes in bowel or bladder habits, changes in sensation of extremities, weakness in motor function of extremities. PMH: ESRD on HD (MWF, only goes 2x per week), anemia, HTN, asthma, nephrolithiasias, HLD PSH: Kidney stone removal, RUE Breaks-Manjinder Hybrid AV Shunt (2014) All: Denies SH: Former tobacco use (20 yrs prior), denies ETOH or illicit drug use PMD: David Review of Systems - Review of Systems All systems: reviewed and no additional remarkable complaints except - Constitutional Constitutional: Weakness. absent: Chills, Fever - EENT Nose/Mouth/Throat: absent: Nasal Congestion, Sore Throat - Cardiovascular Cardiovascular: absent: Chest Pain, Palpitations, Pedal Edema - Respiratory Respiratory: absent: Cough - Gastrointestinal Gastrointestinal: absent: Abdominal Pain, Change in Bowel Habits, Nausea, Vomiting - Neurological Neurological: absent: Burning Sensations, Numbness, Sensory Deficit, Tingling Past Patient History - Infectious Disease Hx of Infectious Diseases: None - Past Medical History & Family History Past Medical History?: Yes - Past Social History Smoking Status: Never Smoked - CARDIAC Hx Atrial Fibrillation: Yes Hx Hypercholesterolemia: Yes Hx Hypertension: Yes - PULMONARY Hx Chronic Obstructive Pulmonary Disease (COPD): Yes - RENAL Hx Chronic Kidney Disease: Yes - HEMATOLOGICAL/ONCOLOGICAL Hx Anemia: Yes - INTEGUMENTARY Hx Dermatological Problems: Yes Other/Comment: small plastic tube above shunt right arm - MUSCULOSKELETAL/RHEUMATOLOGICAL Hx Musculoskeletal Disorders: Yes Other/Comment: right knee pain - GASTROINTESTINAL Hx Gastrointestinal Disorders: Yes Other/Comment: chronic constipation - GENITOURINARY/GYNECOLOGICAL Hx Genitourinary Disorders: Yes Hx Prostate Problems: Yes (hx of turp) Other/Comment: DIALYSIS - PSYCHIATRIC Hx Substance Use: No - SURGICAL HISTORY Hx Surgeries: Yes - ANESTHESIA Hx Anesthesia: Yes Hx Anesthesia Reactions: No Hx Malignant Hyperthermia: No Meds Allergies/Adverse Reactions: Allergies Allergy/AdvReac Type Severity Reaction Status Date / Time No Known Allergies Allergy Verified 12/23/16 18:53 Physical Exam - Constitutional Appears: Non-toxic, No Acute Distress - Head Exam Head Exam: ATRAUMATIC, NORMAL INSPECTION, NORMOCEPHALIC - Eye Exam Eye Exam: EOMI, Normal appearance - ENT Exam ENT Exam: Mucous Membranes Moist, Normal Exam - Neck Exam Neck exam: Positive for: Full Rom - Respiratory Exam Respiratory Exam: Clear to Auscultation Bilateral, NORMAL BREATHING PATTERN Additional comments: Left chest wall with well healed surgical scar over upper aspect - Cardiovascular Exam Cardiovascular Exam: REGULAR RHYTHM, +S1, +S2 - GI/Abdominal Exam GI & Abdominal Exam: Normal Bowel Sounds, Soft. absent: Distended, Tenderness - Extremities Exam Extremities exam: Positive for: normal capillary refill, normal inspection. Negative for: tenderness Additional comments: RUE AVF w/dressing in place- C/D/I; no palpable thrill, no audible bruit, pulses intact distally, no changes in sensation or motor function - Neurological Exam Neurological exam: Alert, CN II-XII Intact, Oriented x3 - Psychiatric Exam Psychiatric exam: Normal Affect, Normal Mood - Skin Skin Exam: Dry, Intact, Normal Color, Warm Results - Vital Signs Recent Vital Signs: Last Vital Signs Temp 98.7 F 12/23/16 18:58 Pulse 107 H 12/23/16 18:58 Resp 20 12/23/16 19:06 BP 164/87 H 12/23/16 18:58 Pulse Ox 95 12/23/16 20:11 - Labs Result Diagrams: 12/23/16 19:34 12/23/16 19:34 Assessment & Plan - Assessment and Plan (Free Text) Assessment: 61M w/thrombosis/non-functional RUE hybrid AV shunt , continuing to require dialysis Plan: Plan for OR in AM for permacath placement NPO after MN FU AM labs Consent in chart EKG/CXR done DW attending Nanci, PGY-1 - Date & Time Date: 12/23/16 Time: 21:37
--- NOTE | 2016-12-23 21:59 | CP.PCM.PN ---
Objective - Vital Signs/Intake and Output Vital Signs (last 24 hours): Temp Pulse Resp BP Pulse Ox 98.7 F 107 H 20 164/87 H 95 12/23/16 18:58 12/23/16 18:58 12/23/16 19:06 12/23/16 18:58 12/23/16 20:11 - Labs Labs: PT 11.5 SECONDS (9.7-12.2) 12/23/16 19:34 INR 1.0 12/23/16 19:34 APTT 27 SECONDS (21-34) 12/23/16 19:34
--- NOTE | 2016-12-23 22:46 | CP.PCM.HP ---
<Ophelia Colón - Last Filed: 12/24/16 05:17> History of Present Illness - History of Present Illness History of Present Illness: CC: Nonfunctioning right AV shunt HPI: Patient is a 61 year old male with past medical history of ESRD, HTN, asthma, anemia, lymphoma, nephroliathiasis, who presents to the ED due to noted nonfunctioning right arm AV shunt during dialysis session. Patient reports that he missed his dialysis session on Monday. Patient reports that he has gained 7lbs this week. Patient admits to dyspnea that started earlier today but denies fever, chills, chest pain, nausea, vomiting, abdominal pain, palpitations and dizziness. PMD: Dr. Shashank Lara. Commercial Correspondent : Dr. Shultz PMhx: ESRD, HTN, anemia, asthma, nephroliathiasis, lymphoma PSHx: Right arm A-V shunt placement (2014), removal of kidney stones FHx: Hypertension Medications: Aspirin 81mg PO daily, Vit D3 400units PO daily, Ferrous sulfate 325mg PO daily, fluticasone/salmeterol 250/50 1 puff INH q12h, Folic acid/VitB 0.8mg PO daily, Lopressor 50mg PO BID, Flomax 0.4mg PO daily, Spiriva 18mcg INH prn, spiriva 1 puff INH Q24H Allergies: NKDA Social history: former smoker of 27 years (3PPD). Denies alcohol and illicit drug use. Present on Admission - Present on Admission Any Indicators Present on Admission: No Review of Systems - Constitutional Constitutional: Weight Gain. absent: Chills, Headache - EENT Eyes: absent: Blurred Vision, Change in Vision Ears: absent: Dizziness - Cardiovascular Cardiovascular: Dyspnea. absent: Chest Pain, Leg Edema, Lightheadedness, Palpitations - Respiratory Respiratory: Dyspnea. absent: Cough - Gastrointestinal Gastrointestinal: absent: Abdominal Pain, Nausea, Vomiting - Neurological Neurological: absent: Dizziness, Weakness, Other Visual Disturbances - Endocrine Endocrine: absent: Fatigue, Palpitations Past Patient History - Infectious Disease Hx of Infectious Diseases: None - Past Medical History & Family History Past Medical History?: Yes - Past Social History Smoking Status: Never Smoked - CARDIAC Hx Atrial Fibrillation: Yes Hx Hypercholesterolemia: Yes Hx Hypertension: Yes - PULMONARY Hx Chronic Obstructive Pulmonary Disease (COPD): Yes - RENAL Hx Chronic Kidney Disease: Yes - HEMATOLOGICAL/ONCOLOGICAL Hx Anemia: Yes - INTEGUMENTARY Hx Dermatological Problems: Yes Other/Comment: small plastic tube above shunt right arm - MUSCULOSKELETAL/RHEUMATOLOGICAL Hx Musculoskeletal Disorders: Yes Other/Comment: right knee pain - GASTROINTESTINAL Hx Gastrointestinal Disorders: Yes Other/Comment: chronic constipation - GENITOURINARY/GYNECOLOGICAL Hx Genitourinary Disorders: Yes Hx Prostate Problems: Yes (hx of turp) Other/Comment: DIALYSIS - PSYCHIATRIC Hx Substance Use: No - SURGICAL HISTORY Hx Surgeries: Yes - ANESTHESIA Hx Anesthesia: Yes Hx Anesthesia Reactions: No Hx Malignant Hyperthermia: No Meds Allergies/Adverse Reactions: Allergies Allergy/AdvReac Type Severity Reaction Status Date / Time No Known Allergies Allergy Verified 12/23/16 18:53 Physical Exam - Constitutional Appears: Well, No Acute Distress - Head Exam Head Exam: ATRAUMATIC - Eye Exam Eye Exam: EOMI, Normal appearance - ENT Exam ENT Exam: Mucous Membranes Moist, Normal Exam - Respiratory Exam Respiratory Exam: Clear to Auscultation Bilateral, NORMAL BREATHING PATTERN - Cardiovascular Exam Cardiovascular Exam: REGULAR RHYTHM, +S1, +S2 - GI/Abdominal Exam GI & Abdominal Exam: Normal Bowel Sounds, Soft - Extremities Exam Extremities exam: Positive for: normal capillary refill, normal inspection - Neurological Exam Neurological exam: Alert, Oriented x3 - Psychiatric Exam Psychiatric exam: Normal Affect, Normal Mood - Skin Skin Exam: Dry, Normal Color, Warm Results - Vital Signs Recent Vital Signs: Last Vital Signs Temp 97.8 F 12/23/16 22:42 Pulse 60 12/23/16 22:42 Resp 18 12/23/16 22:42 BP 172/88 H 12/23/16 22:42 Pulse Ox 97 12/23/16 22:42 - Labs Result Diagrams: 12/23/16 19:34 12/23/16 19:34 Assessment & Plan (1) Dialysis AV fistula malfunction Assessment and Plan: General Surgery Consult ( Dr. Altman)---->Help appreciated * As per surgery, OR tomorrow for perm cath * Prophylactic heparin not started Status: Acute (2) ESRD (end stage renal disease) on dialysis Assessment and Plan: Dialysis on M,W,F * Dialysis tomorrow after perm cath placement * BUN/CR on admission: 94/11; GFR : 5 Status: Acute (3) Anemia Assessment and Plan: H/H on admission 11.5/35.5 Continue home medication: * Ferrous sulfate 325mg PO daily Monitor H/H with labs Status: Acute (4) Hypertension Assessment and Plan: Lopressor 50mg PO BID Status: Chronic (5) BPH (benign prostatic hyperplasia) Assessment and Plan: Continue home medication: * Flomax 0.4 PO daily Status: Chronic (6) COPD (chronic obstructive pulmonary disease) Assessment and Plan: Continue home medication * Spirivia 18mcg INH PRN * Duonebs Status: Chronic (7) History of lymphoma Assessment and Plan: Chemotherapy for 6 months (2010) Status: Acute (8) Prophylactic measure Assessment and Plan: SCD GI prophylaxis: Pepcid 20mg PO BID DVT prophylaxis: Heparin not started due to OR procedure for 12/24/16 Status: Acute <Jered Moses P - Last Filed: 12/24/16 05:45> Results - Vital Signs Recent Vital Signs: Last Vital Signs Temp 97.5 F L 12/23/16 23:15 Pulse 58 L 12/23/16 23:15 Resp 20 12/23/16 23:15 BP 179/91 H 12/23/16 23:15 Pulse Ox 96 12/23/16 23:15 - Labs Result Diagrams: 12/23/16 19:34 12/23/16 19:34 Attending/Attestation - Attestation I have personally seen and examined this patient.: Yes I have fully participated in the care of the patient.: Yes I have reviewed all pertinent clinical information: Yes Notes (Text): 12/24/16 05:43 61 M ESRD on hd, copd, h/o lymphoma s/p chemo in 2010, come with missing 2 sessions of HD with Right AV fistula malfunction, clinical weight gain noticed but no signs of distress or severe electrolyte abnormalities, Valcular surg planning permacath today.
[2016-12-24] MEDS ORDERED: Pneumococcal 23-Valent Vaccine IM ONE (00:05)
[2016-12-24] MEDS: Tiotropium 18 mcg Cap For Inhalation INH SCH (08:18)
[2016-12-24] MEDS: Fluticasone-Salmeterol 250-50mcg Diskus INH SCH ×2 (08:18→20:09)
--- NOTE | 2016-12-24 08:45 | RAD ---
HISTORY: SOB COMPARISON: Comparison is made to 09/10/2016 TECHNIQUE: Chest PA and lateral FINDINGS: LUNGS: Haziness seen at the right lower lung. The possibility of infiltrate cannot be excluded. Otherwise no significant interval change. PLEURA: No significant pleural effusion identified. No pneumothorax apparent. CARDIOVASCULAR: Normal. OSSEOUS STRUCTURES: No significant abnormalities. VISUALIZED UPPER ABDOMEN: Normal. OTHER FINDINGS: None. IMPRESSION: Haziness at the right lower lung suspicious for possible small infiltrate or atelectasis.
--- NOTE | 2016-12-24 08:49 | CP.PCM.PN ---
<Cj Falcon - Last Filed: 12/24/16 16:35> Subjective - Date & Time of Evaluation Date of Evaluation: 12/24/16 Time of Evaluation: 09:45 - Subjective Subjective: PGY 2 Medicine Note- Dr. Olsen's service Pt seen and examined s/p right femoral permacath placement secondary to central vein stenosis. Patient tolerated the procedure . Patient complained on some pain at the surgical site. Patient tolerating a diet. Patient due for dialysis today. Patient denies any headaches, subjective fevers or chills, nausea, vomiting, diarrhea or constipation at this time. Objective - Vital Signs/Intake and Output Vital Signs (last 24 hours): Temp Pulse Resp BP Pulse Ox 97.5 F L 57 L 20 179/91 H 96 12/23/16 23:15 12/24/16 08:21 12/23/16 23:15 12/23/16 23:15 12/23/16 23:15 - Medications Medications: Current Medications Ergocalciferol (Drisdol 50,000 Intl Units Cap) 1 cap PO QWK [facility] Ferrous Sulfate (Feosol) 325 mg PO DAILY [facility] Influenza Virus Vaccine (Afluria) 45 mcg IM .ONCE ONE Stop: 12/26/16 14:01 Metoprolol Tartrate (Lopressor) 50 mg PO BID [facility] Last Admin: 12/24/16 08:43 Dose: 50 mg Pneumococcal Polyvalent Vaccine (Pneumovax 23 Vaccine) 0.5 ml IM .ONCE ONE Stop: 12/26/16 14:01 Fluticasone/Salmeterol (Advair Diskus 250/50) 1 puff INH RQ12 [facility] Last Admin: 12/24/16 08:18 Dose: 1 puff Tamsulosin HCl (Flomax) 0.4 mg PO DAILY [facility] Tiotropium [place] (Spiriva) 18 mcg INH RQD [facility] Last Admin: 12/24/16 08:18 Dose: 18 mcg Vitamin B Complex/Vit C/Folic Acid (Nephro-Anival) 1 tab PO DAILY [facility] - Labs Labs: PT 11.5 SECONDS (9.7-12.2) 12/23/16 19:34 INR 1.0 12/23/16 19:34 APTT 27 SECONDS (21-34) 12/23/16 19:34 - Constitutional Appears: Non-toxic, No Acute Distress - Head Exam Head Exam: ATRAUMATIC, NORMAL INSPECTION, NORMOCEPHALIC - Eye Exam Eye Exam: EOMI, Normal appearance, PERRL Pupil Exam: NORMAL ACCOMODATION - ENT Exam ENT Exam: Mucous Membranes Moist - Neck Exam Neck Exam: Full ROM - Respiratory Exam Respiratory Exam: NORMAL BREATHING PATTERN. absent: Wheezes - Cardiovascular Exam Cardiovascular Exam: +S1, +S2 - GI/Abdominal Exam GI & Abdominal Exam: Soft, Normal Bowel Sounds - Extremities Exam Extremities Exam: Full ROM, Normal Capillary Refill Additional comments: AV graft noted on right UE with palpable thrill right femoral cath dressing noted c/d/i - Back Exam Back Exam: Full ROM - Neurological Exam Neurological Exam: Alert, Awake, CN II-XII Intact, Oriented x3 - Psychiatric Exam Psychiatric exam: Normal Affect, Normal Mood - Skin Skin Exam: Dry, Intact, Normal Color, Warm Assessment and Plan - Assessment and Plan (Free Text) Assessment: (1) S/P Right femoral permacath placement Assessment and Plan: General Surgery on board- Patient s/p femoral permacath placement Continue to monitor F/U recommendations Status: Acute (2) ESRD (end stage renal disease) on dialysis Assessment and Plan: Dialysis on M,W,F * Dialysis today - Will likely need permanent access in the future- Will need to figure out patient's options. * Nephrology- Dr. Alegre- F/U recommendations Status: Acute (3) Anemia Assessment and Plan: H/H on admission 11.5/35.5 Will need to obtain repeat labs on HD since patient likely has poor access Continue home medication: * Ferrous sulfate 325mg PO daily Monitor H/H with labs Status: Acute (4) Hypertension Assessment and Plan: Lopressor 50mg PO BID Continue to monitor Status: Chronic (5) BPH (benign prostatic hyperplasia) Assessment and Plan: Continue home medication: * Flomax 0.4 PO daily Status: Chronic (6) COPD (chronic obstructive pulmonary disease) Assessment and Plan: Continue home medication * Spiriva 18mcg INH PRN * Duonebs * Oxygen PRN Status: Chronic (7) History of lymphoma Assessment and Plan: Had chemotherapy for 6 months (2010) Status: Acute (8) Prophylactic measure Assessment and Plan: SCD GI prophylaxis: Protonix 40 mg PO daily DVT prophylaxis: Heparin SC Q12 Status: Acute <Bert Olsen H - Last Filed: 12/24/16 18:58> Objective - Vital Signs/Intake and Output Vital Signs (last 24 hours): Temp Pulse Resp BP Pulse Ox 98.2 F 67 20 155/90 H 97 12/24/16 17:20 12/24/16 17:20 12/24/16 17:20 12/24/16 17:20 12/24/16 17:20 Intake and Output: 12/24/16 12/24/16 06:59 18:59 Intake Total 120 Balance 120 - Medications Medications: Current Medications Acetaminophen (Tylenol 325mg Tab) 650 mg PO Q6 PRN PRN Reason: Pain, moderate (4-7) Ergocalciferol (Drisdol 50,000 Intl Units Cap) 1 cap PO QWK [facility] Last Admin: 12/24/16 12:11 Dose: Not Given Ferrous Sulfate (Feosol) 325 mg PO DAILY [facility] Last Admin: 12/24/16 12:11 Dose: Not Given Heparin Sodium (Porcine) (Heparin) 5,000 units SC Q12 [facility] Heparin Sodium (Porcine) (Heparin) 5,400 units IVP MWF [facility] Stop: 12/30/16 09:01 Last Admin: 12/24/16 16:41 Dose: 5,400 units Influenza Virus Vaccine (Afluria) 45 mcg IM .ONCE ONE Stop: 12/26/16 14:01 Metoprolol Tartrate (Lopressor) 50 mg PO BID [facility] Last Admin: 12/24/16 17:23 Dose: 50 mg Oxycodone/Acetaminophen (Percocet 5/325 Mg Tab) 1 tab PO Q6H PRN PRN Reason: Pain, severe (8-10) Stop: 12/27/16 10:34 Last Admin: 12/24/16 13:48 Dose: 1 tab Pantoprazole Sodium (Protonix Ec Tab) 40 mg PO DAILY [facility] Pneumococcal Polyvalent Vaccine (Pneumovax 23 Vaccine) 0.5 ml IM .ONCE ONE Stop: 12/26/16 14:01 Fluticasone/Salmeterol (Advair Diskus 250/50) 1 puff INH RQ12 [facility] Last Admin: 12/24/16 08:18 Dose: 1 puff Tamsulosin HCl (Flomax) 0.4 mg PO DAILY [facility] Last Admin: 12/24/16 12:11 Dose: Not Given Tiotropium [place] (Spiriva) 18 mcg INH RQD [facility] Last Admin: 12/24/16 08:18 Dose: 18 mcg Vitamin B Complex/Vit C/Folic Acid (Nephro-Anival) 1 tab PO DAILY [facility] Last Admin: 12/24/16 12:11 Dose: Not Given - Labs Labs: PT 11.5 SECONDS (9.7-12.2) 12/23/16 19:34 INR 1.0 12/23/16 19:34 APTT 27 SECONDS (21-34) 12/23/16 19:34 Attending/Attestation - Attestation I have personally seen and examined this patient.: Yes I have fully participated in the care of the patient.: Yes I have reviewed all pertinent clinical information, including history, physical exam and plan: Yes Notes (Text): 12/24/16 18:57 Medical Attending: Patient was seen and examined by me. Agree with the above note by the resident. The patient earlier today had placement of a femoral permacath. Later will be going for HD today. As mentioned previously he has gone without HD for two sessions now. thank you Bert Olsen
[2016-12-24] MEDS ORDERED: Iodixanol 320 MG/ML 200 ML BOTTLE IV ONE (08:56)
[2016-12-24] MEDS ORDERED: HEPARIN-NS 5,000 UNITS/500 ML 5,000 UNIT/500 ML BAG IV ONE (08:56)
[2016-12-24] MEDS ORDERED: Sodium Chloride 0.9% 1,000 ML IV ONE ×2 (09:06)
[2016-12-24] MEDS ORDERED: Propofol 10 mg/ml Inj (20 ML) ONE (09:21)
[2016-12-24] MEDS ORDERED: Midazolam 2 MG/2 ML VIAL ONE (09:21)
[2016-12-24] MEDS ORDERED: Lidocaine 1% Inj (20ml) ONE (09:26)
[2016-12-24] MEDS ORDERED: ceFAZolin IV 2 gm in Dextrose 1 GM/50 ML BAG IVPB ONE (09:26)
[2016-12-24] MEDS ORDERED: HYDROmorphone 0.5 mg/0.5 ml ISec IVP PRN (10:14)
--- NOTE | 2016-12-24 10:32 | PCM.SURG1 ---
Surgeon's Initial Post Op Note - Surgeon's Notes Surgeon: Anselmo Altman MD Director Of Diversity And Inclusion: Renea Christine PGY-1 Pre-Operative Diagnosis: ESRD on chronic HD, failed Right upper extremity AV hybrid graft Operative Findings: See op report Post-Operative Diagnosis: ESRD on chronic HD, failed Right upper extremity AV hybrid graft Operation Performed: Right femoral permacatheter placement due to central vein stenosis Specimen/Specimens Removed: None Estimated Blood Loss: EBL {In ML}: 20 Blood Products Given: N/A Drains Used: No Drains Post-Op Condition: Fair Date of Surgery/Procedure: 12/24/16 Time of Surgery/Procedure: 10:31
[2016-12-24] MEDS: Ergocalciferol 50,000 Intl Units Cap PO SCH (12:11)
[2016-12-24] MEDS: Multivitamin Vitamin B Complex (Nephro-Vite) Tab PO SCH (12:11)
--- NOTE | 2016-12-24 12:13 | CP.PCM.CON ---
History of Present Illness - History of Present Illness History of Present Illness: HPI: Patient is a 61 year old male with past medical history of ESRD, HTN, asthma, anemia, lymphoma, nephroliathiasis, who presents to the ED due to noted nonfunctioning right arm AV shunt during dialysis session. Patient reports that he missed his dialysis session on Monday. Patient reports that he has gained 7lbs this week. Patient admits to dyspnea that started earlier today but denies fever, chills, chest pain, nausea, vomiting, abdominal pain, palpitations and dizziness. S/p OR today with right femoral permath. FLAQUITA on right not salvageable. HD arranged for today. Labs noted, K wnl. Review of Systems - Constitutional Constitutional: absent: Chills, Fever - EENT Eyes: absent: Blurred Vision, Change in Vision Ears: absent: Decreased Hearing, Dizziness Nose/Mouth/Throat: absent: Epistaxis, Nasal Congestion - Cardiovascular Cardiovascular: Dyspnea. absent: Chest Pain, Edema - Respiratory Respiratory: absent: Cough, Hemoptysis - Gastrointestinal Gastrointestinal: absent: Abdominal Pain, Bloating - Genitourinary Genitourinary: absent: Change in Urinary Stream, Difficulty Urinating - Musculoskeletal Musculoskeletal: absent: Arthralgias, Back Pain - Psychiatric Psychiatric: absent: Anxiety, Confusion Past Patient History - Infectious Disease Hx of Infectious Diseases: None - Past Medical History & Family History Past Medical History?: Yes - Past Social History Smoking Status: Never Smoked - CARDIAC Hx Atrial Fibrillation: Yes Hx Hypercholesterolemia: Yes Hx Hypertension: Yes - PULMONARY Hx Chronic Obstructive Pulmonary Disease (COPD): Yes - RENAL Hx Chronic Kidney Disease: Yes - HEMATOLOGICAL/ONCOLOGICAL Hx Anemia: Yes - INTEGUMENTARY Hx Dermatological Problems: Yes Other/Comment: small plastic tube above shunt right arm - MUSCULOSKELETAL/RHEUMATOLOGICAL Hx Musculoskeletal Disorders: Yes Other/Comment: right knee pain - GASTROINTESTINAL Hx Gastrointestinal Disorders: Yes Other/Comment: chronic constipation - GENITOURINARY/GYNECOLOGICAL Hx Genitourinary Disorders: Yes Hx Prostate Problems: Yes (hx of turp) Other/Comment: DIALYSIS - PSYCHIATRIC Hx Substance Use: No - SURGICAL HISTORY Hx Surgeries: Yes - ANESTHESIA Hx Anesthesia: Yes Hx Anesthesia Reactions: No Hx Malignant Hyperthermia: No Meds Allergies/Adverse Reactions: Allergies Allergy/AdvReac Type Severity Reaction Status Date / Time No Known Allergies Allergy Verified 12/23/16 18:53 - Medications Medications: Current Medications Acetaminophen (Tylenol 325mg Tab) 650 mg PO Q6 PRN PRN Reason: Pain, moderate (4-7) Ergocalciferol (Drisdol 50,000 Intl Units Cap) 1 cap PO QWK [facility] Ferrous Sulfate (Feosol) 325 mg PO DAILY [facility] Hydromorphone HCl (Dilaudid) 0.5 mg IVP Q15M PRN PRN Reason: Pain, severe (8-10) Stop: 12/24/16 12:14 Influenza Virus Vaccine (Afluria) 45 mcg IM .ONCE ONE Stop: 12/26/16 14:01 Metoprolol Tartrate (Lopressor) 50 mg PO BID [facility] Last Admin: 12/24/16 10:27 Dose: Not Given Ondansetron HCl (Zofran Inj) 4 mg IVP ONCE PRN PRN Reason: Nausea/Vomiting Stop: 12/24/16 12:14 Oxycodone/Acetaminophen (Percocet 5/325 Mg Tab) 1 tab PO Q6H PRN PRN Reason: Pain, severe (8-10) Stop: 12/27/16 10:34 Pneumococcal Polyvalent Vaccine (Pneumovax 23 Vaccine) 0.5 ml IM .ONCE ONE Stop: 12/26/16 14:01 Fluticasone/Salmeterol (Advair Diskus 250/50) 1 puff INH RQ12 [facility] Last Admin: 12/24/16 08:18 Dose: 1 puff Tamsulosin HCl (Flomax) 0.4 mg PO DAILY [facility] Tiotropium [place] (Spiriva) 18 mcg INH RQD [facility] Last Admin: 12/24/16 08:18 Dose: 18 mcg Vitamin B Complex/Vit C/Folic Acid (Nephro-Anival) 1 tab PO DAILY [facility] Physical Exam - Constitutional Appears: No Acute Distress - Head Exam Head Exam: ATRAUMATIC - Eye Exam Eye Exam: EOMI, Normal appearance - ENT Exam ENT Exam: Mucous Membranes Moist - Neck Exam Neck exam: Positive for: Full Rom. Negative for: Lymphadenopathy - Respiratory Exam Respiratory Exam: Clear to Auscultation Bilateral. absent: Accessory Muscle Use - Cardiovascular Exam Cardiovascular Exam: REGULAR RHYTHM. absent: Rubs - GI/Abdominal Exam GI & Abdominal Exam: absent: Distended, Guarding - Extremities Exam Additional comments: right femoral permcath - Neurological Exam Neurological exam: Alert, Oriented x3 - Psychiatric Exam Psychiatric exam: Normal Affect Results - Vital Signs Recent Vital Signs: Last Vital Signs Temp 97.3 F L 12/24/16 11:35 Pulse 50 L 12/24/16 11:35 Resp 20 12/24/16 11:35 BP 186/91 H 12/24/16 11:35 Pulse Ox 98 12/24/16 11:35 - Labs Result Diagrams: 12/23/16 19:34 12/23/16 19:34 Assessment & Plan - Assessment and Plan (Free Text) Assessment: esrd, htn, clotted flaquita now with femoral permcath due to central stenosis HD today to discuss with surgery future options for dialysis access
[2016-12-24] MEDS: Oxycodone/Acetaminophen 5/325 mg Tab PO PRN ×2 (13:48→21:28)
[2016-12-25] MEDS ORDERED: DiphenhydrAMINE 50 mg/ml Inj IVP ONE (01:20)
[2016-12-25] MEDS ORDERED: Ammonium Lactate 12% Lotion (225 g) EXT ONE (01:24)
--- NOTE | 2016-12-25 06:02 | OP ---
PROCEDURE DATE: 12/24/2016 PREOPERATIVE DIAGNOSES: Renal failure, thrombosed shunt, right arm. POSTOPERATIVE DIAGNOSES: Renal failure, thrombosed shunt, right arm. PROCEDURE: Placement of PermCath, right femoral vein with zero-fluoroscopy, ultrasound-guided puncture and micropuncture technique. SURGEON: Anselmo Altman Jr., MD ASSOCIATE VETERINARIAN: Dr. Christine. ANESTHESIOLOGIST: Dr. Esquivel, mart with sedation. The patient is an older middle-aged man with renal insufficiency, known central venous stenosis who presents with a clotted shunt. OPERATIVE FINDINGS: The patient has known central venous stenosis of the previously placed shunt and known issues. Because of this, we placed a catheter through the femoral vein. FINDINGS: Ultrasound of his groin *------* vein was approximately 13 mm in diameter with normal compressibility. No evidence of intraluminal thrombosis. An Arrow 41 cm catheter was advanced to the level of the iliac confluence into the vena cava and deployed at this level. There was excellent flow in both directions. Catheter was then tunneled under the skin and boarded on the right groin. The operation was carried out with placement of PermCath, right femoral vein with zero-fluoroscopy and ultrasound-guided puncture. Anselmo Altman Jr., MD
[2016-12-25] MEDS: Tiotropium 18 mcg Cap For Inhalation INH SCH (07:42)
[2016-12-25] MEDS: Fluticasone-Salmeterol 250-50mcg Diskus INH SCH ×2 (07:42→19:59)
--- NOTE | 2016-12-25 08:22 | CP.PCM.PN ---
Subjective - Date & Time of Evaluation Date of Evaluation: 12/25/16 Time of Evaluation: 08:19 - Subjective Subjective: Surgery: Dr. Altman Patient doing well today. Complains on mild pain to right groin. tolerated HD through permacath yesterday. Objective - Vital Signs/Intake and Output Vital Signs (last 24 hours): Temp Pulse Resp BP Pulse Ox 97.8 F 63 20 152/82 H 96 12/24/16 23:05 12/24/16 23:05 12/24/16 23:05 12/24/16 23:05 12/24/16 23:05 - Medications Medications: Current Medications Acetaminophen (Tylenol 325mg Tab) 650 mg PO Q6 PRN PRN Reason: Pain, moderate (4-7) Ergocalciferol (Drisdol 50,000 Intl Units Cap) 1 cap PO QWK [facility] Last Admin: 12/24/16 12:11 Dose: Not Given Ferrous Sulfate (Feosol) 325 mg PO DAILY [facility] Last Admin: 12/24/16 12:11 Dose: Not Given Heparin Sodium (Porcine) (Heparin) 5,000 units SC Q12 [facility] Last Admin: 12/24/16 21:32 Dose: 5,000 units Heparin Sodium (Porcine) (Heparin) 5,400 units IVP MWF [facility] Stop: 12/30/16 09:01 Last Admin: 12/24/16 16:41 Dose: 5,400 units Influenza Virus Vaccine (Afluria) 45 mcg IM .ONCE ONE Stop: 12/26/16 14:01 Metoprolol Tartrate (Lopressor) 50 mg PO BID [facility] Last Admin: 12/24/16 17:23 Dose: 50 mg Oxycodone/Acetaminophen (Percocet 5/325 Mg Tab) 1 tab PO Q6H PRN PRN Reason: Pain, severe (8-10) Stop: 12/27/16 10:34 Last Admin: 12/24/16 21:28 Dose: 1 tab Pantoprazole Sodium (Protonix Ec Tab) 40 mg PO DAILY [facility] Pneumococcal Polyvalent Vaccine (Pneumovax 23 Vaccine) 0.5 ml IM .ONCE ONE Stop: 12/26/16 14:01 Fluticasone/Salmeterol (Advair Diskus 250/50) 1 puff INH RQ12 [facility] Last Admin: 12/25/16 07:42 Dose: 1 puff Tamsulosin HCl (Flomax) 0.4 mg PO DAILY [facility] Last Admin: 12/24/16 12:11 Dose: Not Given Tiotropium [place] (Spiriva) 18 mcg INH RQD [facility] Last Admin: 12/25/16 07:42 Dose: 18 mcg Vitamin B Complex/Vit C/Folic Acid (Nephro-Anival) 1 tab PO DAILY [facility] Last Admin: 12/24/16 12:11 Dose: Not Given - Labs Labs: PT 11.5 SECONDS (9.7-12.2) 12/23/16 19:34 INR 1.0 12/23/16 19:34 APTT 27 SECONDS (21-34) 12/23/16 19:34 - Constitutional Appears: Non-toxic, No Acute Distress - Head Exam Head Exam: ATRAUMATIC, NORMOCEPHALIC - Eye Exam Eye Exam: EOMI, Normal appearance - ENT Exam ENT Exam: Mucous Membranes Moist - Respiratory Exam Respiratory Exam: NORMAL BREATHING PATTERN. absent: Respiratory Distress - Cardiovascular Exam Cardiovascular Exam: REGULAR RHYTHM. absent: Tachycardia - Extremities Exam Additional comments: right groin permacath noted. No hematoma, mildly TTP. no bleeding. Assessment and Plan - Assessment and Plan (Free Text) Assessment: 61 y/o male with malfunctioning AV graft, right arm s/p right femoral permacath placement POD1 Plan: -IR evaluation for possible intervention for malfunctioning AV graft -cont HD through permacath -further recs per Dr. Agapito Soriano PGY3
[2016-12-25 08:49] LABS: BASO % 0.7 % (0.0-2.0); EOS # 0.2 K/uL (0.0-0.7); EOS % 6.5 % (0.0-4.0); HEMOGLOBIN 11.5 g/dL (12.0-18.0); LYMPH # 0.5 K/uL (1.0-4.3); LYMPH % 15.5 % (20.0-40.0); MEAN CELL VOLUME 93.7 fL (80.0-94.0); MEAN CORPUSCULAR HEMOGLOBIN 30.6 pg (27.0-31.0); MEAN CORPUSCULAR HGB CONC 32.7 g/dL (33.0-37.0); MEAN PLATELET VOLUME 10.1 fL (7.2-11.7); MONO # 0.3 K/uL (0.0-0.8); MONO % 9.6 % (0.0-10.0); NEUT # 2.2 K/uL (1.8-7.0); NEUT % 67.7 % (50.0-75.0); NRBC % 0.1 % (0.0-2.0); RBC 3.77 Mil/uL (4.40-5.90); RED CELL DISTRIBUTION WIDTH 16.9 % (11.5-14.5); WHITE BLOOD COUNT 3.3 K/uL (4.8-10.8)
[2016-12-25 08:55] LABS: ALBUMIN 3.6 g/dL (3.5-5.0)
[2016-12-25 08:58] LABS: ALB/GLOB RATIO 1.5 (1.0-2.1)
[2016-12-25 08:59] LABS: MAGNESIUM 2.8 mg/dL (1.6-2.3)
[2016-12-25] MEDS: Multivitamin Vitamin B Complex (Nephro-Vite) Tab PO SCH (10:03)
[2016-12-25] MEDS: Pantoprazole 40 mg EC Tab PO SCH (10:04)
[2016-12-25] MEDS: Ergocalciferol 50,000 Intl Units Cap PO SCH (10:04)
--- NOTE | 2016-12-25 10:09 | CP.PCM.PN ---
<Cj Falcon - Last Filed: 12/25/16 10:13> Subjective - Date & Time of Evaluation Date of Evaluation: 12/25/16 Time of Evaluation: 09:35 - Subjective Subjective: PGY 2 Medicine Note- Dr. Olsen's service Pt seen and examined s/p day 1 right femoral permacath placement secondary to central vein stenosis. Patient has some pain at the surgical site. Patient ambulating to the bathroom. Patient tolerating a diet. Patient denies any headaches, subjective fevers or chills, chest pain, palpitations, nausea, vomiting, diarrhea or constipation at this time. Objective - Vital Signs/Intake and Output Vital Signs (last 24 hours): Temp Pulse Resp BP Pulse Ox 98.0 F 63 20 165/85 H 95 12/25/16 07:05 12/25/16 07:05 12/25/16 07:05 12/25/16 07:05 12/25/16 07:05 - Medications Medications: Current Medications Acetaminophen (Tylenol 325mg Tab) 650 mg PO Q6 PRN PRN Reason: Pain, moderate (4-7) Ergocalciferol (Drisdol 50,000 Intl Units Cap) 1 cap PO QWK [facility] Last Admin: 12/25/16 10:04 Dose: 1 cap Ferrous Sulfate (Feosol) 325 mg PO DAILY [facility] Last Admin: 12/25/16 10:04 Dose: 325 mg Heparin Sodium (Porcine) (Heparin) 5,000 units SC Q12 [facility] Last Admin: 12/25/16 10:04 Dose: 5,000 units Heparin Sodium (Porcine) (Heparin) 5,[address] [facility] Stop: 12/30/16 09:01 Last Admin: 12/24/16 16:41 Dose: 5,400 units Influenza Virus Vaccine (Afluria) 45 mcg IM .ONCE ONE Stop: 12/26/16 14:01 Metoprolol Tartrate (Lopressor) 50 mg PO BID [facility] Last Admin: 12/25/16 10:03 Dose: 50 mg Oxycodone/Acetaminophen (Percocet 5/325 Mg Tab) 1 tab PO Q6H PRN PRN Reason: Pain, severe (8-10) Stop: 12/27/16 10:34 Last Admin: 12/24/16 21:28 Dose: 1 tab Pantoprazole Sodium (Protonix Ec Tab) 40 mg PO DAILY [facility] Last Admin: 12/25/16 10:04 Dose: 40 mg Pneumococcal Polyvalent Vaccine (Pneumovax 23 Vaccine) 0.5 ml IM .ONCE ONE Stop: 12/26/16 14:01 Fluticasone/Salmeterol (Advair Diskus 250/50) 1 puff INH RQ12 [facility] Last Admin: 12/25/16 07:42 Dose: 1 puff Tamsulosin HCl (Flomax) 0.4 mg PO DAILY [facility] Last Admin: 12/25/16 10:03 Dose: 0.4 mg Tiotropium [place] (Spiriva) 18 mcg INH RQD [facility] Last Admin: 12/25/16 07:42 Dose: 18 mcg Vitamin B Complex/Vit C/Folic Acid (Nephro-Anival) 1 tab PO DAILY [facility] Last Admin: 12/25/16 10:03 Dose: 1 tab - Labs Labs: 12/25/16 08:35 12/25/16 08:35 PT 11.5 SECONDS (9.7-12.2) 12/23/16 19:34 INR 1.0 12/23/16 19:34 APTT 30 SECONDS (21-34) 12/25/16 08:35 - Constitutional Appears: Non-toxic, No Acute Distress - Head Exam Head Exam: ATRAUMATIC, NORMAL INSPECTION, NORMOCEPHALIC - Eye Exam Eye Exam: EOMI, Normal appearance, PERRL Pupil Exam: NORMAL ACCOMODATION, PERRL - ENT Exam ENT Exam: Mucous Membranes Moist - Neck Exam Neck Exam: Full ROM - Respiratory Exam Respiratory Exam: NORMAL BREATHING PATTERN. absent: Wheezes - Cardiovascular Exam Cardiovascular Exam: +S1, +S2 - GI/Abdominal Exam GI & Abdominal Exam: Soft, Normal Bowel Sounds - Extremities Exam Extremities Exam: Full ROM, Normal Capillary Refill. absent: Pedal Edema Additional comments: AV graft noted on right UE with palpable thrill. Pulsation visualized right femoral cath dressing noted c/d/i - Back Exam Back Exam: Full ROM - Neurological Exam Neurological Exam: Alert, Awake, CN II-XII Intact, Oriented x3 - Psychiatric Exam Psychiatric exam: Normal Affect, Normal Mood - Skin Skin Exam: Dry, Intact, Normal Color, Warm Assessment and Plan - Assessment and Plan (Free Text) Assessment: S/P Right femoral permacath placement Assessment and Plan: General Surgery on board- Patient s/p femoral permacath placement Continue to monitor F/U recommendations Status: Acute Malfunctioning Right AV Graft Site Assessment and Plan: Will likely need permanent access in the future- IR consulted for assessment. F/ U Status: Acute ESRD (end stage renal disease) on dialysis Assessment and Plan: Dialysis on M,W,F * Will likely need permanent access in the future- IR consulted for assessment. F/U * Nephrology- Dr. Alegre- F/U recommendations Status: Acute Anemia Assessment and Plan: H/H on admission 11.5/35.5 Will need to obtain repeat labs on HD since patient likely has poor access Continue home medication: * Ferrous sulfate 325mg PO daily Monitor H/H with labs Status: Acute Hypertension Assessment and Plan: Lopressor 50mg PO BID Continue to monitor Status: Chronic BPH (benign prostatic hyperplasia) Assessment and Plan: Continue home medication: * Flomax 0.4 PO daily Status: Chronic COPD (chronic obstructive pulmonary disease) Assessment and Plan: Continue home medication * Spiriva 18mcg INH PRN * Duonebs * Oxygen PRN Status: Chronic History of lymphoma Assessment and Plan: Had chemotherapy for 6 months (2010) Status: Acute Prophylactic measure Assessment and Plan: SCD GI prophylaxis: Protonix 40 mg PO daily DVT prophylaxis: Heparin SC Q12 Status: Acute <Bert Olsen H - Last Filed: 12/25/16 10:25> Objective - Vital Signs/Intake and Output Vital Signs (last 24 hours): Temp Pulse Resp BP Pulse Ox 98.0 F 63 20 165/85 H 95 12/25/16 07:05 12/25/16 07:05 12/25/16 07:05 12/25/16 07:05 12/25/16 07:05 - Medications Medications: Current Medications Acetaminophen (Tylenol 325mg Tab) 650 mg PO Q6 PRN PRN Reason: Pain, moderate (4-7) Ergocalciferol (Drisdol 50,000 Intl Units Cap) 1 cap PO QWK [facility] Last Admin: 12/25/16 10:04 Dose: 1 cap Ferrous Sulfate (Feosol) 325 mg PO DAILY [facility] Last Admin: 12/25/16 10:04 Dose: 325 mg Heparin Sodium (Porcine) (Heparin) 5,000 units SC Q12 [facility] Last Admin: 12/25/16 10:04 Dose: 5,000 units Heparin Sodium (Porcine) (Heparin) 5,400 units IVP MWF [facility] Stop: 12/30/16 09:01 Last Admin: 12/24/16 16:41 Dose: 5,400 units Influenza Virus Vaccine (Afluria) 45 mcg IM .ONCE ONE Stop: 12/26/16 14:01 Metoprolol Tartrate (Lopressor) 50 mg PO BID [facility] Last Admin: 12/25/16 10:03 Dose: 50 mg Oxycodone/Acetaminophen (Percocet 5/325 Mg Tab) 1 tab PO Q6H PRN PRN Reason: Pain, severe (8-10) Stop: 12/27/16 10:34 Last Admin: 12/24/16 21:28 Dose: 1 tab Pantoprazole Sodium (Protonix Ec Tab) 40 mg PO DAILY [facility] Last Admin: 12/25/16 10:04 Dose: 40 mg Pneumococcal Polyvalent Vaccine (Pneumovax 23 Vaccine) 0.5 ml IM .ONCE ONE Stop: 12/26/16 14:01 Fluticasone/Salmeterol (Advair Diskus 250/50) 1 puff INH RQ12 [facility] Last Admin: 12/25/16 07:42 Dose: 1 puff Tamsulosin HCl (Flomax) 0.4 mg PO DAILY [facility] Last Admin: 12/25/16 10:03 Dose: 0.4 mg Tiotropium [place] (Spiriva) 18 mcg INH RQD [facility] Last Admin: 12/25/16 07:42 Dose: 18 mcg Vitamin B Complex/Vit C/Folic Acid (Nephro-Anival) 1 tab PO DAILY [facility] Last Admin: 12/25/16 10:03 Dose: 1 tab - Labs Labs: 12/25/16 08:35 12/25/16 08:35 PT 11.5 SECONDS (9.7-12.2) 12/23/16 19:34 INR 1.0 12/23/16 19:34 APTT 30 SECONDS (21-34) 12/25/16 08:35 Attending/Attestation - Attestation I have personally seen and examined this patient.: Yes I have fully participated in the care of the patient.: Yes I have reviewed all pertinent clinical information, including history, physical exam and plan: Yes Notes (Text): Medical Attending: Patient was seen and examined by me. Agree with the above note by the resident. The patient explained that his pain was controlled however when walking he has a lot of pain around the newly placed femoral dialysis cather. He had HD yesterday and reported he did ok. He denied any shortness of breath, denied feeling dizzy, denied abominal pain, denied palpitations. His serum K is stable. He had HD yesterday Hopefully there can be repair of the right arm AV graft soon. thank you Bert Olsen
[2016-12-26 07:24] LABS: BASO % 0.7 % (0.0-2.0); EOS # 0.2 K/uL (0.0-0.7); EOS % 7.2 % (0.0-4.0); HEMOGLOBIN 11.3 g/dL (12.0-18.0); LYMPH # 0.6 K/uL (1.0-4.3); LYMPH % 19.6 % (20.0-40.0); MEAN CELL VOLUME 92.6 fL (80.0-94.0); MEAN CORPUSCULAR HEMOGLOBIN 30.3 pg (27.0-31.0); MEAN CORPUSCULAR HGB CONC 32.7 g/dL (33.0-37.0); MEAN PLATELET VOLUME 9.8 fL (7.2-11.7); MONO # 0.3 K/uL (0.0-0.8); MONO % 10.4 % (0.0-10.0); NEUT # 1.8 K/uL (1.8-7.0); NEUT % 62.1 % (50.0-75.0); RBC 3.74 Mil/uL (4.40-5.90); WHITE BLOOD COUNT 2.9 K/uL (4.8-10.8)
--- NOTE | 2016-12-26 07:29 | CP.PCM.PN ---
Subjective - Date & Time of Evaluation Date of Evaluation: 12/26/16 Time of Evaluation: 07:15 - Subjective Subjective: surgery progress note for Dr. Roselyn Christine, PGY-1 Pt S & E at bedside. Pt reports some pain over right permacath insertion site. Had HD yesterday. Denies any other complaints. Objective - Vital Signs/Intake and Output Vital Signs (last 24 hours): Temp Pulse Resp BP Pulse Ox 97.6 F 60 20 176/84 H 96 12/26/16 07:20 12/26/16 07:20 12/26/16 07:20 12/26/16 07:20 12/26/16 07:20 - Medications Medications: Current Medications Acetaminophen (Tylenol 325mg Tab) 650 mg PO Q6 PRN PRN Reason: Pain, moderate (4-7) Diphenhydramine HCl (Benadryl) 25 mg PO Q8 PRN PRN Reason: Itching / Pruritus Last Admin: 12/25/16 18:09 Dose: 25 mg Ergocalciferol (Drisdol 50,000 Intl Units Cap) 1 cap PO QWK [facility] Last Admin: 12/25/16 10:04 Dose: 1 cap Ferrous Sulfate (Feosol) 325 mg PO DAILY [facility] Last Admin: 12/25/16 10:04 Dose: 325 mg Heparin Sodium (Porcine) (Heparin) 5,000 units SC Q12 [facility] Last Admin: 12/25/16 21:18 Dose: 5,000 units Heparin Sodium (Porcine) (Heparin) 5,400 units IVP MWF [facility] Stop: 12/30/16 09:01 Last Admin: 12/24/16 16:41 Dose: 5,400 units Influenza Virus Vaccine (Afluria) 45 mcg IM .ONCE ONE Stop: 12/26/16 14:01 Metoprolol Tartrate (Lopressor) 50 mg PO BID [facility] Last Admin: 12/25/16 17:56 Dose: 50 mg Oxycodone/Acetaminophen (Percocet 5/325 Mg Tab) 1 tab PO Q6H PRN PRN Reason: Pain, severe (8-10) Stop: 12/27/16 10:34 Last Admin: 12/24/16 21:28 Dose: 1 tab Pantoprazole Sodium (Protonix Ec Tab) 40 mg PO DAILY [facility] Last Admin: 12/25/16 10:04 Dose: 40 mg Pneumococcal Polyvalent Vaccine (Pneumovax 23 Vaccine) 0.5 ml IM .ONCE ONE Stop: 12/26/16 14:01 Fluticasone/Salmeterol (Advair Diskus 250/50) 1 puff INH RQ12 [facility] Last Admin: 12/25/16 19:59 Dose: 1 puff Tamsulosin HCl (Flomax) 0.4 mg PO DAILY [facility] Last Admin: 12/25/16 10:03 Dose: 0.4 mg Tiotropium [place] (Spiriva) 18 mcg INH RQD [facility] Last Admin: 12/25/16 07:42 Dose: 18 mcg Vitamin B Complex/Vit C/Folic Acid (Nephro-Anival) 1 tab PO DAILY [facility] Last Admin: 12/25/16 10:03 Dose: 1 tab - Labs Labs: 12/25/16 08:35 12/25/16 08:35 PT 11.5 SECONDS (9.7-12.2) 12/23/16 19:34 INR 1.0 12/23/16 19:34 APTT 30 SECONDS (21-34) 12/25/16 08:35 - Constitutional Appears: Non-toxic, No Acute Distress - Head Exam Head Exam: ATRAUMATIC, NORMAL INSPECTION, NORMOCEPHALIC - Eye Exam Eye Exam: EOMI, Normal appearance - ENT Exam ENT Exam: Mucous Membranes Moist, Normal Exam - Neck Exam Neck Exam: Full ROM - Respiratory Exam Respiratory Exam: Clear to Ausculation Bilateral, NORMAL BREATHING PATTERN - Cardiovascular Exam Cardiovascular Exam: REGULAR RHYTHM, +S1, +S2 - GI/Abdominal Exam GI & Abdominal Exam: Soft, Normal Bowel Sounds. absent: Tenderness - Extremities Exam Additional comments: Right proximal thigh with permacath in place, slightly TTP over insertion site. No erythema noted. - Neurological Exam Neurological Exam: Alert, Awake, Oriented x3 - Psychiatric Exam Psychiatric exam: Normal Affect, Normal Mood - Skin Skin Exam: Dry, Intact, Normal Color, Warm Assessment and Plan - Assessment and Plan (Free Text) Assessment: 61M w/malfunctioning RUE AV graft s/p right femoral permacath placement POD#2 Plan: -IR evaluation for possible intervention for malfunctioning RUE AV graft today -NPO -cont HD through permacath -further recs as per attending Will CIARRA attending Nanci, PGY-1
[2016-12-26] MEDS: Tiotropium 18 mcg Cap For Inhalation INH SCH (07:35)
[2016-12-26] MEDS: Fluticasone-Salmeterol 250-50mcg Diskus INH SCH ×2 (07:35→20:10)
[2016-12-26 07:39] LABS: ALBUMIN 3.5 g/dL (3.5-5.0)
[2016-12-26 07:42] LABS: ALB/GLOB RATIO 1.5 (1.0-2.1)
[2016-12-26 07:43] LABS: CALCIUM 8.7 mg/dl (8.6-10.4); MAGNESIUM 2.9 mg/dL (1.6-2.3)
[2016-12-26] MEDS: Pantoprazole 40 mg EC Tab PO SCH (10:00)
[2016-12-26] MEDS: Multivitamin Vitamin B Complex (Nephro-Vite) Tab PO SCH (10:00)
[2016-12-26] MEDS ORDERED: Midazolam 2 MG/2 ML VIAL ONE (11:11)
[2016-12-26] MEDS ORDERED: Iodixanol 320 MG/ML 100 ML BOTTLE IV ONE (11:13)
--- NOTE | 2016-12-26 12:15 | PCM.SURG1 ---
Surgeon's Initial Post Op Note - Surgeon's Notes Surgeon: Enoch Benton MD Sales Project Coordinator: NONE Type of Anesthesia: Moderate Sedation{RN} Pre-Operative Diagnosis: ESRD, thrombosed right arm AVG Operative Findings: Thrombosed left arm AVG, significant clot throughout the AVG , multiple central vein stents. Post-Operative Diagnosis: ESRD, thrombosed right arm AVG Operation Performed: Right arm AVG thrombectomy, ARABIC LINGUIST axillary vein stenosis, ARABIC LINGUIST subclavian vein stenosis, Stent placement 12 mm subclavian vein. Specimen/Specimens Removed: None Estimated Blood Loss: EBL {In ML}: 5 Blood Products Given: N/A Drains Used: No Drains Post-Op Condition: Fair Date of Surgery/Procedure: 12/26/16 Time of Surgery/Procedure: 12:10
--- NOTE | 2016-12-26 12:54 | CARD ---
APPROVED REPORT EKG Measurement Heart [id number] MD [id number] <Conclusion> Sinus rhythm with 1st degree AV block Otherwise normal ECG
--- NOTE | 2016-12-26 13:27 | CP.PCM.PN ---
Subjective - Date & Time of Evaluation Date of Evaluation: 12/26/16 Time of Evaluation: 13:24 - Subjective Subjective: s/p thrombectomy by IR bruit very poor for dialysis now- will try to pull from AV G BP elevated No CPs, n, v, f, d, chills Mild [place]EWART Objective - Vital Signs/Intake and Output Vital Signs (last 24 hours): Temp Pulse Resp BP Pulse Ox 97.8 F 59 L 20 180/93 H 96 12/26/16 09:46 12/26/16 09:46 12/26/16 09:46 12/26/16 09:46 12/26/16 09:46 - Medications Medications: Current Medications Acetaminophen (Tylenol 325mg Tab) 650 mg PO Q6 PRN PRN Reason: Pain, moderate (4-7) Diphenhydramine HCl (Benadryl) 25 mg PO Q8 PRN PRN Reason: Itching / Pruritus Last Admin: 12/25/16 18:09 Dose: 25 mg Ergocalciferol (Drisdol 50,000 Intl Units Cap) 1 cap PO QWK [facility] Last Admin: 12/25/16 10:04 Dose: 1 cap Ferrous Sulfate (Feosol) 325 mg PO DAILY [facility] Last Admin: 12/26/16 10:00 Dose: Not Given Heparin Sodium (Porcine) (Heparin) 5,000 units SC Q12 [facility] Last Admin: 12/26/16 13:15 Dose: Not Given Heparin Sodium (Porcine) (Heparin) 5,400 units IVP MWF [facility] Stop: 12/30/16 09:01 Last Admin: 12/24/16 16:41 Dose: 5,400 units Influenza Virus Vaccine (Afluria) 45 mcg IM .ONCE ONE Stop: 12/26/16 14:01 Last Admin: 12/26/16 13:21 Dose: Not Given Metoprolol Tartrate (Lopressor) 50 mg PO BID [facility] Last Admin: 12/26/16 13:20 Dose: 50 mg Pantoprazole Sodium (Protonix Ec Tab) 40 mg PO DAILY [facility] Last Admin: 12/26/16 10:00 Dose: Not Given Pneumococcal Polyvalent Vaccine (Pneumovax 23 Vaccine) 0.5 ml IM .ONCE ONE Stop: 12/26/16 14:01 Last Admin: 12/26/16 13:23 Dose: 0.5 ml Fluticasone/Salmeterol (Advair Diskus 250/50) 1 puff INH RQ12 [facility] Last Admin: 12/26/16 07:35 Dose: 1 puff Tamsulosin HCl (Flomax) 0.4 mg PO DAILY [facility] Last Admin: 12/26/16 10:00 Dose: Not Given Tiotropium [place] (Spiriva) 18 mcg INH RQD [facility] Last Admin: 12/26/16 07:35 Dose: 18 mcg Vitamin B Complex/Vit C/Folic Acid (Nephro-Anival) 1 tab PO DAILY [facility] Last Admin: 12/26/16 10:00 Dose: Not Given - Labs Labs: 12/26/16 07:01 12/26/16 07:01 PT 11.5 SECONDS (9.7-12.2) 12/23/16 19:34 INR 1.0 12/23/16 19:34 APTT 30 SECONDS (21-34) 12/25/16 08:35 - Constitutional Appears: No Acute Distress, Chronically Ill - Head Exam Head Exam: ATRAUMATIC, NORMAL INSPECTION - Eye Exam Eye Exam: EOMI, Normal appearance - Neck Exam Neck Exam: Normal Inspection. absent: Tenderness - Respiratory Exam Respiratory Exam: Rales, NORMAL BREATHING PATTERN - Cardiovascular Exam Cardiovascular Exam: REGULAR RHYTHM, +S1 - GI/Abdominal Exam GI & Abdominal Exam: Soft. absent: Tenderness - Extremities Exam Extremities Exam: Normal Inspection. absent: Tenderness - Neurological Exam Neurological Exam: Alert, CN II-XII Intact - Skin Skin Exam: Dry, Warm Assessment and Plan (1) Anemia Status: Acute (2) Dialysis AV fistula malfunction Status: Acute (3) ESRD (end stage renal disease) on dialysis Status: Acute (4) Essential hypertension Status: Acute - Assessment and Plan (Free Text) Plan: Increase BP meds Dialysis now Try use AV graft post thrombectomy
[2016-12-26] MEDS ORDERED: Pneumococcal 23-Valent Vaccine IM ONE (14:00)
[2016-12-26] MEDS ORDERED: Influenza Virus Vaccine 45 mcg/0.5 ml Syr IM ONE (14:00)
--- NOTE | 2016-12-26 18:37 | CP.PCM.PN ---
<Donavon Melgoza - Last Filed: 12/26/16 18:33> Subjective - Date & Time of Evaluation Date of Evaluation: 12/26/16 Time of Evaluation: 18:34 - Subjective Subjective: Patient was seen and examined at bedside. Patient was s/p IR procedure for "Right arm AVG thrombectomy, GRANULATING MACHINE OPERATOR axillary vein stenosis, GRANULATING MACHINE OPERATOR subclavian vein stenosis, Stent placement 12 mm subclavian vein" performed earlier today. Patient stated his right arm AV shunt failed dialysis and was non-functional and that the femoral permacath was used instead for HD today. He was upset by this. He denied all other problems. He denied cp, sob, f/c, n/v/d/c. Objective - Vital Signs/Intake and Output Vital Signs (last 24 hours): Temp Pulse Resp BP Pulse Ox 98 F 63 16 150/96 H 98 12/26/16 14:30 12/26/16 14:30 12/26/16 14:30 12/26/16 16:25 12/26/16 14:30 - Medications Medications: Current Medications Acetaminophen (Tylenol 325mg Tab) 650 mg PO Q6 PRN PRN Reason: Pain, moderate (4-7) Amlodipine Besylate (Norvasc) 5 mg PO DAILY [facility] Clonidine HCl (Catapres) 0.1 mg PO BID [facility] Diphenhydramine HCl (Benadryl) 25 mg PO Q8 PRN PRN Reason: Itching / Pruritus Last Admin: 12/25/16 18:09 Dose: 25 mg Ergocalciferol (Drisdol 50,000 Intl Units Cap) 1 cap PO QWK [facility] Last Admin: 12/25/16 10:04 Dose: 1 cap Ferrous Sulfate (Feosol) 325 mg PO DAILY [facility] Last Admin: 12/26/16 10:00 Dose: Not Given Heparin Sodium (Porcine) (Heparin) 5,000 units SC Q12 [facility] Last Admin: 12/26/16 13:15 Dose: Not Given Heparin Sodium (Porcine) (Heparin) 5,400 units IVP MWF [facility] Stop: 12/30/16 09:01 Last Admin: 12/26/16 18:04 Dose: 5,400 units Metoprolol Tartrate (Lopressor) 50 mg PO BID [facility] Last Admin: 12/26/16 13:20 Dose: 50 mg Pantoprazole Sodium (Protonix Ec Tab) 40 mg PO DAILY [facility] Last Admin: 12/26/16 10:00 Dose: Not Given Fluticasone/Salmeterol (Advair Diskus 250/50) 1 puff INH RQ12 [facility] Last Admin: 12/26/16 07:35 Dose: 1 puff Tamsulosin HCl (Flomax) 0.4 mg PO DAILY [facility] Last Admin: 12/26/16 10:00 Dose: Not Given Tiotropium [place] (Spiriva) 18 mcg INH RQD [facility] Last Admin: 12/26/16 07:35 Dose: 18 mcg Vitamin B Complex/Vit C/Folic Acid (Nephro-Anival) 1 tab PO DAILY [facility] Last Admin: 12/26/16 10:00 Dose: Not Given - Labs Labs: 12/26/16 07:01 12/26/16 07:01 PT 11.5 SECONDS (9.7-12.2) 12/23/16 19:34 INR 1.0 12/23/16 19:34 APTT 30 SECONDS (21-34) 12/25/16 08:35 - Constitutional Appears: Well, Non-toxic, No Acute Distress - Head Exam Head Exam: ATRAUMATIC, NORMAL INSPECTION, NORMOCEPHALIC - Eye Exam Eye Exam: EOMI, Normal appearance, PERRL - ENT Exam ENT Exam: Mucous Membranes Moist, Normal Exam - Neck Exam Neck Exam: Full ROM, Normal Inspection - Respiratory Exam Respiratory Exam: Wheezes, NORMAL BREATHING PATTERN - Cardiovascular Exam Cardiovascular Exam: REGULAR RHYTHM, +S1, +S2. absent: Murmur - GI/Abdominal Exam GI & Abdominal Exam: Soft, Normal Bowel Sounds. absent: Tenderness - Rectal Exam Rectal Exam: Deferred - Extremities Exam Extremities Exam: Full ROM, Normal Capillary Refill, Normal Inspection. absent : Calf Tenderness, Pedal Edema - Neurological Exam Neurological Exam: Alert, Awake, Oriented x3 - Psychiatric Exam Psychiatric exam: Normal Affect, Normal Mood - Skin Skin Exam: Dry, Intact, Normal Color, Warm Assessment and Plan - Assessment and Plan (Free Text) Assessment: Assessment: S/P Right femoral permacath placement Assessment and Plan: General Surgery on board- Patient s/p femoral permacath placement Continue to monitor F/U recommendations Status: Acute Malfunctioning Right AV Graft Site Assessment and Plan: 12/26: Patient was s/p IR procedure for "Right arm AVG thrombectomy, GRANULATING MACHINE OPERATOR axillary vein stenosis, GRANULATING MACHINE OPERATOR subclavian vein stenosis, Stent placement 12 mm subclavian vein" performed earlier today. Patient stated his right arm AV shunt failed dialysis and was non-functional and that the femoral permacath was used instead. We will follow up with the specialists to see how they would like to proceed. Will likely need permanent access in the future- IR consulted for assessment. F/ U Status: Acute ESRD (end stage renal disease) on dialysis Assessment and Plan: Dialysis on M,W,F * Will likely need permanent access in the future- IR consulted for assessment. F/U * Nephrology- Dr. Alegre- F/U recommendations Status: Acute Anemia Assessment and Plan: H/H on admission 11.5/35.5 Will need to obtain repeat labs on HD since patient likely has poor access Continue home medication: * Ferrous sulfate 325mg PO daily Monitor H/H with labs Status: Acute Hypertension Assessment and Plan: 12/26: norvasc 5mg po daily added today due to elevated morning BP Lopressor 50mg PO BID Continue to monitor Status: Chronic BPH (benign prostatic hyperplasia) Assessment and Plan: Continue home medication: * Flomax 0.4 PO daily Status: Chronic COPD (chronic obstructive pulmonary disease) Assessment and Plan: Continue home medication * Spiriva 18mcg INH PRN * Duonebs * Oxygen PRN Status: Chronic History of lymphoma Assessment and Plan: Had chemotherapy for 6 months (2010) Status: Acute Prophylactic measure Assessment and Plan: SCD GI prophylaxis: Protonix 40 mg PO daily DVT prophylaxis: Heparin SC Q12 Status: Acute <Paul Edwards M - Last Filed: 12/27/16 18:10> Objective - Vital Signs/Intake and Output Vital Signs (last 24 hours): Temp Pulse Resp BP Pulse Ox 97.5 F L 65 20 136/89 96 12/27/16 15:59 12/27/16 15:59 12/27/16 15:59 12/27/16 15:59 12/27/16 15:59 Intake and Output: 12/27/16 12/27/16 06:59 18:59 Intake Total 100 Balance 100 - Medications Medications: Current Medications Acetaminophen (Tylenol 325mg Tab) 650 mg PO Q6 PRN PRN Reason: Pain, moderate (4-7) Amlodipine Besylate (Norvasc) 5 mg PO DAILY [facility] Last Admin: 12/27/16 09:49 Dose: 5 mg Clonidine HCl (Catapres) 0.1 mg PO BID [facility] Last Admin: 12/27/16 17:48 Dose: 0.1 mg Diphenhydramine HCl (Benadryl) 25 mg PO Q8 PRN PRN Reason: Itching / Pruritus Last Admin: 12/25/16 18:09 Dose: 25 mg Ergocalciferol (Drisdol 50,000 Intl Units Cap) 1 cap PO QWK [facility] Last Admin: 12/25/16 10:04 Dose: 1 cap Ferrous Sulfate (Feosol) 325 mg PO DAILY [facility] Last Admin: 12/27/16 09:49 Dose: 325 mg Heparin Sodium (Porcine) (Heparin) 5,000 units SC Q12 [facility] Last Admin: 12/27/16 09:49 Dose: 5,000 units Metoprolol Tartrate (Lopressor) 50 mg PO BID [facility] Last Admin: 12/27/16 17:48 Dose: 50 mg Pantoprazole Sodium (Protonix Ec Tab) 40 mg PO DAILY [facility] Last Admin: 12/27/16 09:49 Dose: 40 mg Fluticasone/Salmeterol (Advair Diskus 250/50) 1 puff INH RQ12 [facility] Last Admin: 12/27/16 09:57 Dose: 1 puff Sevelamer Carbonate (Renvela) 2.4 gm PO TIDCC [facility] Last Admin: 12/27/16 17:16 Dose: 2.4 gm Tamsulosin HCl (Flomax) 0.4 mg PO DAILY [facility] Last Admin: 12/27/16 09:50 Dose: 0.4 mg Tiotropium [place] (Spiriva) 18 mcg INH RQD [facility] Last Admin: 12/27/16 09:57 Dose: 18 mcg Vitamin B Complex/Vit C/Folic Acid (Nephro-Anival) 1 tab PO DAILY [facility] Last Admin: 12/27/16 09:49 Dose: 1 tab - Labs Labs: 12/27/16 08:34 12/27/16 08:34 PT 11.5 SECONDS (9.7-12.2) 12/23/16 19:34 INR 1.0 12/23/16 19:34 APTT 30 SECONDS (21-34) 12/25/16 08:35 Attending/Attestation - Attestation I have personally seen and examined this patient.: Yes I have fully participated in the care of the patient.: Yes I have reviewed all pertinent clinical information, including history, physical exam and plan: Yes Notes (Text): 12/27/16 18:08 Patient was seen and examined at bedside with the resident Patient received hemodialysis today via femoral catheter right on the Route still nonfunctional. Follow-up recommendations of vascular surgery I discussed the plan of care with the resident and agree with the history and physical and assessment/plan documented.
--- NOTE | 2016-12-27 08:24 | CP.PCM.PN ---
Subjective - Date & Time of Evaluation Date of Evaluation: 12/27/16 Time of Evaluation: 07:00 - Subjective Subjective: Vascular surgery progress note for Dr. Roselyn Christine, PGY-1 Pt S & E at bedside. Pt reports HD via R femoral catheter yesterday. Denies any complaints. Objective - Vital Signs/Intake and Output Vital Signs (last 24 hours): Temp Pulse Resp BP Pulse Ox 97.5 F L 63 20 152/85 H 98 12/27/16 07:19 12/27/16 07:19 12/27/16 07:19 12/27/16 07:19 12/27/16 07:19 Intake and Output: 12/27/16 12/27/16 06:59 18:59 Intake Total 100 Balance 100 - Medications Medications: Current Medications Acetaminophen (Tylenol 325mg Tab) 650 mg PO Q6 PRN PRN Reason: Pain, moderate (4-7) Amlodipine Besylate (Norvasc) 5 mg PO DAILY [facility] Clonidine HCl (Catapres) 0.1 mg PO BID [facility] Last Admin: 12/26/16 18:54 Dose: 0.1 mg Diphenhydramine HCl (Benadryl) 25 mg PO Q8 PRN PRN Reason: Itching / Pruritus Last Admin: 12/25/16 18:09 Dose: 25 mg Ergocalciferol (Drisdol 50,000 Intl Units Cap) 1 cap PO QWK [facility] Last Admin: 12/25/16 10:04 Dose: 1 cap Ferrous Sulfate (Feosol) 325 mg PO DAILY [facility] Last Admin: 12/26/16 10:00 Dose: Not Given Heparin Sodium (Porcine) (Heparin) 5,000 units SC Q12 [facility] Last Admin: 12/26/16 21:54 Dose: 5,000 units Heparin Sodium (Porcine) (Heparin) 5,400 units IVP MWF [facility] Stop: 12/30/16 09:01 Last Admin: 12/26/16 18:04 Dose: 5,400 units Metoprolol Tartrate (Lopressor) 50 mg PO BID [facility] Last Admin: 12/26/16 18:54 Dose: 50 mg Pantoprazole Sodium (Protonix Ec Tab) 40 mg PO DAILY [facility] Last Admin: 12/26/16 10:00 Dose: Not Given Fluticasone/Salmeterol (Advair Diskus 250/50) 1 puff INH RQ12 [facility] Last Admin: 12/26/16 20:10 Dose: 1 puff Tamsulosin HCl (Flomax) 0.4 mg PO DAILY [facility] Last Admin: 12/26/16 10:00 Dose: Not Given Tiotropium [place] (Spiriva) 18 mcg INH RQD [facility] Last Admin: 12/26/16 07:35 Dose: 18 mcg Vitamin B Complex/Vit C/Folic Acid (Nephro-Anival) 1 tab PO DAILY [facility] Last Admin: 12/26/16 10:00 Dose: Not Given - Labs Labs: 12/26/16 07:01 12/26/16 07:01 PT 11.5 SECONDS (9.7-12.2) 12/23/16 19:34 INR 1.0 12/23/16 19:34 APTT 30 SECONDS (21-34) 12/25/16 08:35 - Constitutional Appears: Non-toxic, No Acute Distress - Head Exam Head Exam: ATRAUMATIC, NORMAL INSPECTION, NORMOCEPHALIC - Eye Exam Eye Exam: EOMI, Normal appearance - ENT Exam ENT Exam: Mucous Membranes Moist, Normal Exam - Neck Exam Neck Exam: Full ROM - Respiratory Exam Respiratory Exam: Clear to Ausculation Bilateral, NORMAL BREATHING PATTERN - Cardiovascular Exam Cardiovascular Exam: REGULAR RHYTHM - GI/Abdominal Exam GI & Abdominal Exam: Soft, Normal Bowel Sounds - Extremities Exam Additional comments: Right femoral catheter in place over right groin area, slightly tender to palpation with small area of ecchymoses around distal insertion site. Dressings in place-C/D/I. RUE w/dressings in place-C/D/I- palpable pulses, no thrill noted - Neurological Exam Neurological Exam: Alert, Awake, CN II-XII Intact, Oriented x3 - Psychiatric Exam Psychiatric exam: Normal Affect, Normal Mood - Skin Skin Exam: Dry, Normal Color, Warm Assessment and Plan - Assessment and Plan (Free Text) Assessment: 61M w/malfunctioning RUE AV graft s/p R femoral permacath placement POD#3, s/p thrombolysis and balloon dilitation with IR, POD#1 Plan: -HD via RUE AV graft unsuccessful -Plan to keep R femoral catheter in place until pt has successful HD via RUE AV graft -FU vein mapping DW attending Nanci, PGY-1
[2016-12-27 08:46] LABS: BASO % 0.7 % (0.0-2.0); EOS # 0.2 K/uL (0.0-0.7); EOS % 6.3 % (0.0-4.0); LYMPH # 0.6 K/uL (1.0-4.3); LYMPH % 16.5 % (20.0-40.0); MEAN CELL VOLUME 92.9 fL (80.0-94.0); MEAN CORPUSCULAR HEMOGLOBIN 30.3 pg (27.0-31.0); MEAN CORPUSCULAR HGB CONC 32.6 g/dL (33.0-37.0); MEAN PLATELET VOLUME 9.8 fL (7.2-11.7); MONO # 0.3 K/uL (0.0-0.8); MONO % 9.5 % (0.0-10.0); NEUT # 2.4 K/uL (1.8-7.0); RBC 3.96 Mil/uL (4.40-5.90); RED CELL DISTRIBUTION WIDTH 17.2 % (11.5-14.5); WHITE BLOOD COUNT 3.6 K/uL (4.8-10.8)
[2016-12-27 09:01] LABS: ALBUMIN 3.8 g/dL (3.5-5.0)
[2016-12-27 09:04] LABS: ALB/GLOB RATIO 1.4 (1.0-2.1)
--- NOTE | 2016-12-27 09:24 | CP.PCM.PN ---
<Donavon Melgoza R - Last Filed: 12/27/16 09:21> Subjective - Date & Time of Evaluation Date of Evaluation: 12/27/16 Time of Evaluation: 07:15 - Subjective Subjective: Patient was S and E at bedside. Patient was resting comfortably in bed. I told him the we're working diligently to resolve the issues with his AV shunt. He understood this. He had no complaints. He denied cp, sob, f/c, n/v/d/c, bleeding , palpitations. Objective - Vital Signs/Intake and Output Vital Signs (last 24 hours): Temp Pulse Resp BP Pulse Ox 97.5 F L 63 20 152/85 H 98 12/27/16 07:19 12/27/16 07:19 12/27/16 07:19 12/27/16 07:19 12/27/16 07:19 Intake and Output: 12/27/16 12/27/16 06:59 18:59 Intake Total 100 Balance 100 - Medications Medications: Current Medications Acetaminophen (Tylenol 325mg Tab) 650 mg PO Q6 PRN PRN Reason: Pain, moderate (4-7) Amlodipine Besylate (Norvasc) 5 mg PO DAILY [facility] Clonidine HCl (Catapres) 0.1 mg PO BID [facility] Last Admin: 12/26/16 18:54 Dose: 0.1 mg Diphenhydramine HCl (Benadryl) 25 mg PO Q8 PRN PRN Reason: Itching / Pruritus Last Admin: 12/25/16 18:09 Dose: 25 mg Ergocalciferol (Drisdol 50,000 Intl Units Cap) 1 cap PO QWK [facility] Last Admin: 12/25/16 10:04 Dose: 1 cap Ferrous Sulfate (Feosol) 325 mg PO DAILY [facility] Last Admin: 12/26/16 10:00 Dose: Not Given Heparin Sodium (Porcine) (Heparin) 5,000 units SC Q12 [facility] Last Admin: 12/26/16 21:54 Dose: 5,000 units Heparin Sodium (Porcine) (Heparin) 5,400 units IVP F [facility] Stop: 12/30/16 09:01 Last Admin: 12/26/16 18:04 Dose: 5,400 units Metoprolol Tartrate (Lopressor) 50 mg PO BID [facility] Last Admin: 12/26/16 18:54 Dose: 50 mg Pantoprazole Sodium (Protonix Ec Tab) 40 mg PO DAILY [facility] Last Admin: 12/26/16 10:00 Dose: Not Given Fluticasone/Salmeterol (Advair Diskus 250/50) 1 puff INH RQ12 [facility] Last Admin: 12/26/16 20:10 Dose: 1 puff Tamsulosin HCl (Flomax) 0.4 mg PO DAILY [facility] Last Admin: 12/26/16 10:00 Dose: Not Given Tiotropium [place] (Spiriva) 18 mcg INH RQD [facility] Last Admin: 12/26/16 07:35 Dose: 18 mcg Vitamin B Complex/Vit C/Folic Acid (Nephro-Anival) 1 tab PO DAILY [facility] Last Admin: 12/26/16 10:00 Dose: Not Given - Labs Labs: 12/27/16 08:34 12/26/16 07:01 PT 11.5 SECONDS (9.7-12.2) 12/23/16 19:34 INR 1.0 12/23/16 19:34 APTT 30 SECONDS (21-34) 12/25/16 08:35 - Constitutional Appears: Well, Non-toxic, No Acute Distress - Head Exam Head Exam: NORMAL INSPECTION - Eye Exam Eye Exam: EOMI, Normal appearance, PERRL - ENT Exam ENT Exam: Mucous Membranes Moist - Neck Exam Neck Exam: Full ROM, Normal Inspection - Respiratory Exam Respiratory Exam: Clear to Ausculation Bilateral, NORMAL BREATHING PATTERN. absent: Wheezes - Cardiovascular Exam Cardiovascular Exam: REGULAR RHYTHM, +S1, +S2. absent: Murmur - GI/Abdominal Exam GI & Abdominal Exam: Soft, Normal Bowel Sounds - Rectal Exam Rectal Exam: Deferred - Extremities Exam Extremities Exam: Normal Capillary Refill, Normal Inspection Additional comments: right arm dressing was clean/dry/intact. no bleeding, no hematoma at the site. + bruit, +thrill, pulses palpable. femoral catheter in place and dressing was c/d/i - Neurological Exam Neurological Exam: Alert, Awake, Oriented x3 - Psychiatric Exam Psychiatric exam: Normal Affect, Normal Mood - Skin Skin Exam: Dry, Intact, Normal Color, Warm Assessment and Plan - Assessment and Plan (Free Text) Assessment: Malfunctioning Right AV Graft Site Assessment and Plan: 12/27: Per surgery, the plan is to keep the right femoral catheter in place until the patient has successful HD via RUE AV graft. A vein mapping study will be done. 12/26: Patient was s/p IR procedure for "Right arm AVG thrombectomy, BOILER ERECTOR axillary vein stenosis, BOILER ERECTOR subclavian vein stenosis, Stent placement 12 mm subclavian vein" performed earlier today. Patient stated his right arm AV shunt failed dialysis and was non-functional and that the femoral permacath was used instead. We will follow up with the specialists to see how they would like to proceed. Will likely need permanent access in the future- IR consulted for assessment. F/ U Status: Acute S/P Right femoral permacath placement Assessment and Plan: General Surgery on board- Patient s/p femoral permacath placement Continue to monitor F/U recommendations Status: Acute ESRD (end stage renal disease) on dialysis Assessment and Plan: Dialysis on M,W,F * Will likely need permanent access in the future- IR consulted for assessment. F/U * Nephrology- Dr. Alegre- F/U recommendations Status: Acute Anemia Assessment and Plan: H/H on admission 11.5/35.5 Will need to obtain repeat labs on HD since patient likely has poor access Continue home medication: * Ferrous sulfate 325mg PO daily Monitor H/H with labs Status: Acute Hypertension Assessment and Plan: 12/26: norvasc 5mg po daily added today due to elevated morning BP Lopressor 50mg PO BID Continue to monitor Status: Chronic BPH (benign prostatic hyperplasia) Assessment and Plan: Continue home medication: * Flomax 0.4 PO daily Status: Chronic COPD (chronic obstructive pulmonary disease) Assessment and Plan: Continue home medication * Spiriva 18mcg INH PRN * Duonebs * Oxygen PRN Status: Chronic History of lymphoma Assessment and Plan: Had chemotherapy for 6 months (2010) Status: Acute Prophylactic measure Assessment and Plan: SCD GI prophylaxis: Protonix 40 mg PO daily DVT prophylaxis: Heparin SC Q12 Status: Acute <Paul Edwards - Last Filed: 12/28/16 16:17> Objective - Vital Signs/Intake and Output Vital Signs (last 24 hours): Temp Pulse Resp BP Pulse Ox 97.6 F 58 L 20 156/89 H 96 12/28/16 07:29 12/28/16 07:29 12/28/16 07:29 12/28/16 07:29 12/28/16 07:29 Intake and Output: 12/28/16 12/28/16 06:59 18:59 Intake Total 100 Balance 100 - Medications Medications: Current Medications Acetaminophen (Tylenol 325mg Tab) 650 mg PO Q6 PRN PRN Reason: Pain, moderate (4-7) Amlodipine Besylate (Norvasc) 5 mg PO DAILY [facility] Last Admin: 12/28/16 10:24 Dose: Not Given Clonidine HCl (Catapres) 0.1 mg PO BID [facility] Last Admin: 12/28/16 10:08 Dose: Not Given Diphenhydramine HCl (Benadryl) 25 mg PO Q8 PRN PRN Reason: Itching / Pruritus Last Admin: 12/25/16 18:09 Dose: 25 mg Ergocalciferol (Drisdol 50,000 Intl Units Cap) 1 cap PO QWK [facility] Last Admin: 12/25/16 10:04 Dose: 1 cap Ferrous Sulfate (Feosol) 325 mg PO DAILY [facility] Last Admin: 12/28/16 10:08 Dose: Not Given Metoprolol Tartrate (Lopressor) 50 mg PO BID [facility] Last Admin: 12/28/16 10:08 Dose: Not Given Pantoprazole Sodium (Protonix Ec Tab) 40 mg PO DAILY [facility] Last Admin: 12/28/16 10:42 Dose: 40 mg Fluticasone/Salmeterol (Advair Diskus 250/50) 1 puff INH RQ12 [facility] Last Admin: 12/27/16 19:08 Dose: 1 puff Sevelamer Carbonate (Renvela) 2.4 gm PO TIDCC [facility] Last Admin: 12/28/16 12:26 Dose: Not Given Tamsulosin HCl (Flomax) 0.4 mg PO DAILY [facility] Last Admin: 12/28/16 10:42 Dose: 0.4 mg Tiotropium [place] (Spiriva) 18 mcg INH RQD [facility] Last Admin: 12/27/16 09:57 Dose: 18 mcg Vitamin B Complex/Vit C/Folic Acid (Nephro-Anival) 1 tab PO DAILY [facility] Last Admin: 12/28/16 10:41 Dose: 1 tab - Labs Labs: 12/28/16 06:39 12/28/16 06:39 PT 11.5 SECONDS (9.7-12.2) 12/23/16 19:34 INR 1.0 12/23/16 19:34 APTT 30 SECONDS (21-34) 12/25/16 08:35 Attending/Attestation - Attestation I have personally seen and examined this patient.: Yes I have fully participated in the care of the patient.: Yes I have reviewed all pertinent clinical information, including history, physical exam and plan: Yes Notes (Text): 12/28/16 16:14 Patient was seen and examined at bedside with the resident. Plan is for placement of AV fistula by vascular surgery I discussed the plan of care with the resident and agree with the history and physical and assessment/plan but the resident.
[2016-12-27] MEDS: Multivitamin Vitamin B Complex (Nephro-Vite) Tab PO SCH (09:49)
[2016-12-27] MEDS: Pantoprazole 40 mg EC Tab PO SCH (09:49)
[2016-12-27] MEDS: Tiotropium 18 mcg Cap For Inhalation INH SCH (09:57)
[2016-12-27] MEDS: Fluticasone-Salmeterol 250-50mcg Diskus INH SCH ×2 (09:57→19:08)
--- NOTE | 2016-12-27 12:02 | SPECPROC ---
PROCEDURE: Date of procedure: 12/26/2016 Procedure: 1. Hemodialysis AV fistulagram, CPT 59044 2. Additional puncture, CPT 70209 3. Thrombectomy, CPT 30247 4. FASTENER TECHNOLOGIST outflow vein 60 % stenosis 5. FASTENER TECHNOLOGIST subclavian vein 95 % stenosis, 6. Intravascular stent placement 12 mm x 4 cm subclavian vein Medications: The patient sedated by the anesthesiologist, 2 percent lidocaine 1 milligram Versed, 50 microgram fentanyl, 2 percent lidocaine, 5000 units of heparin intra procedure. Physiologic monitoring performed by the interventional radiology nurse. HISTORY: End-stage renal disease, thrombosed right arm AV graft. TECHNIQUE: Following informed consent and procedure time-out, the patient placed supine on the table and the right arm AV graft was prepped and draped in the usual sterile fashion. The AV Freddie was accessed with micropuncture technique. A 5 Malian dilator was exchanged over wire for a 6 Malian vascular sheath. Through this sheath, a guidewire was advanced into the subclavian vein. A Berenstein catheter was advanced over the wire into axillary vein and a central venogram was performed. Central venogram showed a occlusion of subclavian vein stent along with stent deformity of the subclavian vein. Venogram on physical significant thrombus throughout the graft and the outflow vein. The AV graft was then accessed with a 2nd puncture at directed towards toward the anastomosis with micropuncture technique. The 5 Malian dilator was exchanged over an 035 wire for a 6 Malian vascular sheath. The Berenstein catheter was advanced through the sheath and over a wire into the brachial artery. A brachial artery angiogram performed. The brachial artery angiogram showed no flow into the fistula Percutaneous balloon angioplasty using a 12 millimeter balloon was performed across the occluded and 95 %severely stenotic subclavian vein segment. Outflow axillary vein stent also has 65 percent in stent stenosis. This was also treated with percutaneous balloon angioplasty. 5.5 Malian Teri compliant balloon was positioned low at the arterial venous anastomosis inflated and thrombus was pulled into the fistula. The Teri compliant balloon reposition within the arterial end of the AV graft, inflated and pushed centrally. An area of stenosis was noted within the outflow vein. Clot was also aspirated. Repeat AV fistulogram showed persistent stenosis of the subclavian vein near the stent abnormality. Overlapping 12 millimeter x 4 centimeters stent was deployed across the area of stent deformity. The stent was post dilated to 12 millimeter balloon. The pull-push technique was repeated for thrombectomy. There was tenriism of flow fell throughout the fistula. An AV graft fistulogram was performed which showed good forward flow in AV fistula. Residual area of stenosis was noted within the outflow basilic vein. With the balloon inflated a reflux fistulogram was performed which showed a normal arterial anastomosis and no residual thrombus. The two 6 Malian vascular sheaths were removed and hemostasis achieved with manual compression. A dressing was applied. A thrill was present at the completion of the case. IMPRESSION: Occluded central veins stents and severely stenotic subclavian vein. Successfully treated percutaneous balloon angioplasty with a 12 millimeter balloon and placement of 12 millimeter x 4 centimeter bare metal stent in the region of previous stent deformity. Axillary vein in stent 65 percent stenosis treated with percutaneous balloon angioplasty with no residual stenosis. Successful right arm AV graft thrombectomy. The graft has good flow and may be used for dialysis.
--- NOTE | 2016-12-27 12:08 | CP.PCM.PN ---
Subjective - Date & Time of Evaluation Date of Evaluation: 12/27/16 Time of Evaluation: 12:05 - Subjective Subjective: events noted hd yesterday, used permcath. avg non functional denies any cp/sob/nausea/vomiting/headache/fevers/chills/dizziness Objective - Vital Signs/Intake and Output Vital Signs (last 24 hours): Temp Pulse Resp BP Pulse Ox 97.5 F L 69 20 169/98 H 98 12/27/16 07:19 12/27/16 09:49 12/27/16 07:19 12/27/16 09:49 12/27/16 07:19 Intake and Output: 12/27/16 12/27/16 06:59 18:59 Intake Total 100 Balance 100 - Medications Medications: Current Medications Acetaminophen (Tylenol 325mg Tab) 650 mg PO Q6 PRN PRN Reason: Pain, moderate (4-7) Amlodipine Besylate (Norvasc) 5 mg PO DAILY [facility] Last Admin: 12/27/16 09:49 Dose: 5 mg Clonidine HCl (Catapres) 0.1 mg PO BID [facility] Last Admin: 12/27/16 10:36 Dose: 0.1 mg Diphenhydramine HCl (Benadryl) 25 mg PO Q8 PRN PRN Reason: Itching / Pruritus Last Admin: 12/25/16 18:09 Dose: 25 mg Ergocalciferol (Drisdol 50,000 Intl Units Cap) 1 cap PO QWK [facility] Last Admin: 12/25/16 10:04 Dose: 1 cap Ferrous Sulfate (Feosol) 325 mg PO DAILY [facility] Last Admin: 12/27/16 09:49 Dose: 325 mg Heparin Sodium (Porcine) (Heparin) 5,000 units SC Q12 [facility] Last Admin: 12/27/16 09:49 Dose: 5,000 units Heparin Sodium (Porcine) (Heparin) 5,400 units IVP MWF [facility] Stop: 12/30/16 09:01 Last Admin: 12/26/16 18:04 Dose: 5,400 units Metoprolol Tartrate (Lopressor) 50 mg PO BID [facility] Last Admin: 12/27/16 09:49 Dose: 50 mg Pantoprazole Sodium (Protonix Ec Tab) 40 mg PO DAILY [facility] Last Admin: 12/27/16 09:49 Dose: 40 mg Fluticasone/Salmeterol (Advair Diskus 250/50) 1 puff INH RQ12 [facility] Last Admin: 12/27/16 09:57 Dose: 1 puff Tamsulosin HCl (Flomax) 0.4 mg PO DAILY [facility] Last Admin: 12/27/16 09:50 Dose: 0.4 mg Tiotropium [place] (Spiriva) 18 mcg INH RQD [facility] Last Admin: 12/27/16 09:57 Dose: 18 mcg Vitamin B Complex/Vit C/Folic Acid (Nephro-Anival) 1 tab PO DAILY [facility] Last Admin: 12/27/16 09:49 Dose: 1 tab - Labs Labs: 12/27/16 08:34 12/27/16 08:34 PT 11.5 SECONDS (9.7-12.2) 12/23/16 19:34 INR 1.0 12/23/16 19:34 APTT 30 SECONDS (21-34) 12/25/16 08:35 - Constitutional Appears: Non-toxic, No Acute Distress - Head Exam Head Exam: NORMAL INSPECTION - Eye Exam Eye Exam: Normal appearance - ENT Exam ENT Exam: Mucous Membranes Moist, Normal Exam - Neck Exam Neck Exam: Normal Inspection - Respiratory Exam Respiratory Exam: Clear to Ausculation Bilateral, NORMAL BREATHING PATTERN - Cardiovascular Exam Cardiovascular Exam: REGULAR RHYTHM, RRR - GI/Abdominal Exam GI & Abdominal Exam: Distended, Soft - Extremities Exam Extremities Exam: Normal Inspection Additional comments: femoral hd catheter Assessment and Plan (1) Hypertension Status: Acute (2) Hyperphosphatemia Status: Acute (3) Dialysis AV fistula malfunction Status: Acute (4) ESRD (end stage renal disease) on dialysis Status: Acute - Assessment and Plan (Free Text) Assessment: use femoral permcath. central stenosis noted. will need new avf norvasc added for bp start binder no derrick
[2016-12-27] MEDS: Sod Polystyrene Sulf 15 gm/60 ml Oral Susp PO ONE ×2 (13:44→13:48)
[2016-12-27] MEDS ORDERED: Sod Polystyrene Sulf 15 gm/60 ml Oral Susp PO ONE (14:11)
[2016-12-27] MEDS: Sevelamer Carb 2.4 gm/Packet PO SCH (17:16)
[2016-12-28 07:11] LABS: BASO % 0.8 % (0.0-2.0); EOS # 0.3 K/uL (0.0-0.7); EOS % 8.3 % (0.0-4.0); HEMOGLOBIN 12.1 g/dL (12.0-18.0); LYMPH # 0.6 K/uL (1.0-4.3); LYMPH % 17.6 % (20.0-40.0); MEAN CELL VOLUME 93.9 fL (80.0-94.0); MEAN CORPUSCULAR HEMOGLOBIN 29.6 pg (27.0-31.0); MEAN CORPUSCULAR HGB CONC 31.5 g/dL (33.0-37.0); MONO # 0.3 K/uL (0.0-0.8); MONO % 8.4 % (0.0-10.0); NEUT # 2.3 K/uL (1.8-7.0); NEUT % 64.9 % (50.0-75.0); NRBC % 0.2 % (0.0-2.0); RBC 4.11 Mil/uL (4.40-5.90); RED CELL DISTRIBUTION WIDTH 17.3 % (11.5-14.5); WHITE BLOOD COUNT 3.6 K/uL (4.8-10.8)
[2016-12-28 07:14] LABS: ALBUMIN 3.9 g/dL (3.5-5.0)
[2016-12-28 07:17] LABS: ALB/GLOB RATIO 1.4 (1.0-2.1)
[2016-12-28] MEDS: Sevelamer Carb 2.4 gm/Packet PO SCH ×3 (10:41→19:00)
[2016-12-28] MEDS: Multivitamin Vitamin B Complex (Nephro-Vite) Tab PO SCH (10:41)
[2016-12-28] MEDS: Pantoprazole 40 mg EC Tab PO SCH (10:42)
--- NOTE | 2016-12-28 11:04 | CP.PCM.PN ---
Subjective - Date & Time of Evaluation Date of Evaluation: 12/28/16 Time of Evaluation: 07:50 - Subjective Subjective: Vascular sx progress note for Dr. Roselyn Christine, PGY-1 Pt S & E at bedside. Pt w/o complaints overnight. Tolerating diet, tolerating HD via R femoral catheter. Denies N/V/F/C, SOB, CP, ab pain. Objective - Vital Signs/Intake and Output Vital Signs (last 24 hours): Temp Pulse Resp BP Pulse Ox 97.6 F 58 L 20 156/89 H 96 12/28/16 07:29 12/28/16 07:29 12/28/16 07:29 12/28/16 07:29 12/28/16 07:29 Intake and Output: 12/28/16 12/28/16 06:59 18:59 Intake Total 100 Balance 100 - Medications Medications: Current Medications Acetaminophen (Tylenol 325mg Tab) 650 mg PO Q6 PRN PRN Reason: Pain, moderate (4-7) Amlodipine Besylate (Norvasc) 5 mg PO DAILY [facility] Last Admin: 12/28/16 10:24 Dose: Not Given Clonidine HCl (Catapres) 0.1 mg PO BID [facility] Last Admin: 12/28/16 10:08 Dose: Not Given Diphenhydramine HCl (Benadryl) 25 mg PO Q8 PRN PRN Reason: Itching / Pruritus Last Admin: 12/25/16 18:09 Dose: 25 mg Ergocalciferol (Drisdol 50,000 Intl Units Cap) 1 cap PO QWK [facility] Last Admin: 12/25/16 10:04 Dose: 1 cap Ferrous Sulfate (Feosol) 325 mg PO DAILY [facility] Last Admin: 12/28/16 10:08 Dose: Not Given Metoprolol Tartrate (Lopressor) 50 mg PO BID [facility] Last Admin: 12/28/16 10:08 Dose: Not Given Pantoprazole Sodium (Protonix Ec Tab) 40 mg PO DAILY [facility] Last Admin: 12/28/16 10:42 Dose: 40 mg Fluticasone/Salmeterol (Advair Diskus 250/50) 1 puff INH RQ12 [facility] Last Admin: 12/27/16 19:08 Dose: 1 puff Sevelamer Carbonate (Renvela) 2.4 gm PO TIDCC [facility] Last Admin: 12/28/16 10:41 Dose: 2.4 gm Tamsulosin HCl (Flomax) 0.4 mg PO DAILY [facility] Last Admin: 12/28/16 10:42 Dose: 0.4 mg Tiotropium [place] (Spiriva) 18 mcg INH RQD [facility] Last Admin: 12/27/16 09:57 Dose: 18 mcg Vitamin B Complex/Vit C/Folic Acid (Nephro-Anival) 1 tab PO DAILY [facility] Last Admin: 12/28/16 10:41 Dose: 1 tab - Labs Labs: 12/28/16 06:39 12/28/16 06:39 PT 11.5 SECONDS (9.7-12.2) 12/23/16 19:34 INR 1.0 12/23/16 19:34 APTT 30 SECONDS (21-34) 12/25/16 08:35 - Constitutional Appears: Non-toxic, No Acute Distress - Head Exam Head Exam: ATRAUMATIC, NORMAL INSPECTION, NORMOCEPHALIC - Eye Exam Eye Exam: EOMI, Normal appearance - ENT Exam ENT Exam: Mucous Membranes Moist - Neck Exam Neck Exam: Full ROM - Respiratory Exam Respiratory Exam: Clear to Ausculation Bilateral, NORMAL BREATHING PATTERN - Cardiovascular Exam Cardiovascular Exam: REGULAR RHYTHM, +S1, +S2 - GI/Abdominal Exam GI & Abdominal Exam: Soft, Normal Bowel Sounds - Extremities Exam Additional comments: Right proximal thigh with permacath in place, small ecchymoses around insertion site. Slightly tender to palpation. No erythema or drainage. R upper extremity w/palpable pulses, no thrill, no bruit appreciated. - Neurological Exam Neurological Exam: Alert, Awake, Oriented x3 - Psychiatric Exam Psychiatric exam: Normal Affect, Normal Mood - Skin Skin Exam: Dry, Normal Color, Warm Assessment and Plan - Assessment and Plan (Free Text) Assessment: 61M w/ESRD requiring chronic HD s/p failed IR balloon dilitation and thrombolysis intervention of RUE AV shunt Plan: Plan for OR tomorrow Consent in chart NPO after MN FU CT venogram of upper extremities FU vein mapping Further recs as per attending DW attending Nanci, PGY-1
[2016-12-28] MEDS ORDERED: Iodixanol 320 MG/ML 100 ML BOTTLE IV ONE (11:46)
--- NOTE | 2016-12-28 12:35 | CT ---
PROCEDURE: CT Chest with contrast HISTORY: Pls assess for Central vein occlusion COMPARISON: None. TECHNIQUE: Contiguous axial images were obtained through the chest with intravenous contrast enhancement. Sagittal and coronal reconstructions were performed. IV contrast: Visipaque 320, 100 cc Radiation dose (DLP): 2070 mGy-cm. This CT exam was performed using one or more of the following dose reduction techniques: Automated exposure control, adjustment of the mA and/or kV according to patient size, and/or use of iterative reconstruction technique. FINDINGS: LUNGS: Stable subpleural nodule or scar may have reduced its overall size measuring approximately7 currently. Linear atelectasis or fibrosis is again seen the right upper lower lobes the fibrotic changes associated with granulomatous changes at the right apex laterally and right middle lobe anteriorly. No acute infiltrate bilaterally. Central airways remain clear no pleural or pericardial effusion. MEDIASTINUM: The left brachial axillary and subclavian veins appear patent as well as the brachiocephalic vein and superior vena cava. Further, there is no significant collateral development seen at the left neck, supraclavicular fossa or left shoulder regions. A mildly aneurysmal proximal thoracic aorta is again measured up to 4.0 cm greatest dimension. No aneurysm or dissection. Mild cardiomegaly is stable. Main pulmonary artery unremarkable. No vascular congestion. No lymphadenopathy. On re-measuring prior CT, prominent anterior mediastinal soft tissue versus pleural thickening is increased in superoinferior dimension and stable in other planes now measuring 5.4 x 2.4 x 6.1 cm. Further, additional abnormal right lateral mediastinal soft tissues appreciated measuring 11.2 x 4.0 by 4.5 cm (increased in anterior posterior and superoinferior dimensions only, on re- measuring prior CT finding). Findings suspicious for an infectious, inflammatory or neoplastic etiology. PLEURA: No pleural fluid. No pneumothorax. BONES: No fracture. No destructive lesion. UPPER ABDOMEN: Grossly unremarkable. OTHER FINDINGS: Stable gynecomastia. Cholelithiasis within a contracted gallbladder. Prominent splenic artery calcifications again evident. IMPRESSION: 1. Patent left brachial, axillary, subclavian, brachiocephalic veins as well as vena superior vena cava identified. 2. Masslike mediastinal/pleural densities are again seen increased in size at the anterior mediastinum and right lateral mediastinal base suspicious for infectious, inflammatory or neoplastic etiology. Further clinical correlation is advised her confirmed possible nuclear PET scan for additional characterization or even tissue diagnosis. 3. Right upper and middle lobe fibrotic/granulomatous changes. 4. Cholelithiasis and incidentally noted as well as prominent splenic artery calcifications. 5. Gynecomastia again evident.
--- NOTE | 2016-12-28 15:19 | CP.PCM.PN ---
Subjective - Date & Time of Evaluation Date of Evaluation: 12/28/16 Time of Evaluation: 14:00 - Subjective Subjective: for vein mapping OR in am no fever right leg catheter + reduced urine output no rash no chest pain not sob no vomiting appetite fair no depression Objective - Vital Signs/Intake and Output Vital Signs (last 24 hours): Temp Pulse Resp BP Pulse Ox 97.6 F 58 L 20 156/89 H 96 12/28/16 07:29 12/28/16 07:29 12/28/16 07:29 12/28/16 07:29 12/28/16 07:29 Intake and Output: 12/28/16 12/28/16 06:59 18:59 Intake Total 100 Balance 100 - Medications Medications: Current Medications Acetaminophen (Tylenol 325mg Tab) 650 mg PO Q6 PRN PRN Reason: Pain, moderate (4-7) Amlodipine Besylate (Norvasc) 5 mg PO DAILY [facility] Last Admin: 12/28/16 10:24 Dose: Not Given Clonidine HCl (Catapres) 0.1 mg PO BID [facility] Last Admin: 12/28/16 10:08 Dose: Not Given Diphenhydramine HCl (Benadryl) 25 mg PO Q8 PRN PRN Reason: Itching / Pruritus Last Admin: 12/25/16 18:09 Dose: 25 mg Ergocalciferol (Drisdol 50,000 Intl Units Cap) 1 cap PO QWK [facility] Last Admin: 12/25/16 10:04 Dose: 1 cap Ferrous Sulfate (Feosol) 325 mg PO DAILY [facility] Last Admin: 12/28/16 10:08 Dose: Not Given Metoprolol Tartrate (Lopressor) 50 mg PO BID [facility] Last Admin: 12/28/16 10:08 Dose: Not Given Pantoprazole Sodium (Protonix Ec Tab) 40 mg PO DAILY [facility] Last Admin: 12/28/16 10:42 Dose: 40 mg Fluticasone/Salmeterol (Advair Diskus 250/50) 1 puff INH RQ12 [facility] Last Admin: 12/27/16 19:08 Dose: 1 puff Sevelamer Carbonate (Renvela) 2.4 gm PO TIDCC [facility] Last Admin: 12/28/16 12:26 Dose: Not Given Tamsulosin HCl (Flomax) 0.4 mg PO DAILY [facility] Last Admin: 12/28/16 10:42 Dose: 0.4 mg Tiotropium [place] (Spiriva) 18 mcg INH RQD [facility] Last Admin: 12/27/16 09:57 Dose: 18 mcg Vitamin B Complex/Vit C/Folic Acid (Nephro-Anival) 1 tab PO DAILY [facility] Last Admin: 12/28/16 10:41 Dose: 1 tab - Labs Labs: 12/28/16 06:39 12/28/16 06:39 PT 11.5 SECONDS (9.7-12.2) 12/23/16 19:34 INR 1.0 12/23/16 19:34 APTT 30 SECONDS (21-34) 12/25/16 08:35 - Constitutional Appears: Non-toxic, No Acute Distress - Head Exam Head Exam: ATRAUMATIC - Eye Exam Eye Exam: EOMI - ENT Exam ENT Exam: Mucous Membranes Moist - Neck Exam Neck Exam: Full ROM. absent: Lymphadenopathy - Respiratory Exam Respiratory Exam: NORMAL BREATHING PATTERN. absent: Accessory Muscle Use - Cardiovascular Exam Cardiovascular Exam: REGULAR RHYTHM. absent: Rubs - GI/Abdominal Exam GI & Abdominal Exam: Normal Bowel Sounds. absent: Tenderness - Extremities Exam Extremities Exam: absent: Pedal Edema Additional comments: femoral permcath - Neurological Exam Neurological Exam: Alert, Oriented x3 Assessment and Plan - Assessment and Plan (Free Text) Assessment: esrd failed dialysis access on right arm for vein mapping and OR in am maint HD
--- NOTE | 2016-12-28 16:55 | VASCLAB ---
PROCEDURE: Upper Extremity Venous Duplex Exam HISTORY: malfunctioning RUE AV shunt PRIORS: None. TECHNIQUE: Bilateral upper extremity, internal jugular, subclavian, axillary, brachial, ulnar, radial, basilic and upper cephalic veins were evaluated. Flow was assessed with color Doppler, compressibility, assessment of phasic flow and augmentation response. Report prepared by Satnam Jasso, TONY, RVT FINDINGS: RIGHT: 1. Internal Jugular Vein: Compressibility - Fully compressible: Thrombus - None : Flow - Phasic 2. Subclavian Vein:Compressibility - Fully compressible: Thrombus - None : Flow - Phasic 3. Axillary Vein: Compressibility - Fully compressible: Thrombus - None 4. Brachial Vein: Compressibility - Fully compressible: Thrombus - None 5. Ulnar Vein:Compressibility - Fully compressible: Thrombus - None 6. Radial Vein:Compressibility - Fully compressible: Thrombus - None 7. Cephalic Vein: Compressibility - Fully compressible: thrombus - None 7.1. Upper Arm: Proximal Diameter: 0.39cm. Mid Diameter: 0.43cm. Distal Diameter: 0.46cm. Antecubital Fossa Diameter: 0.56cm. 7.2. Forearm: Proximal Diameter: 0.30cm. Mid Diameter:0.24cm. Distal Diameter: 0.28cm 8. Basilic Vein:Compressibility - Fully compressible: thrombus - None 8.1. Upper Arm:Proximal Diameter: cm. Mid Diameter: cm. Distal Diameter: cm. 8.2. Forearm: Proximal Diameter: 0.29cm. Mid Diameter:0.40cm. Distal Diameter: 0.26cm. LEFT: 1. Internal Jugular Vein: Compressibility - Fully compressible: Thrombus - None : Flow - Phasic 2. Subclavian Vein:Compressibility - Fully compressible: Thrombus - None : Flow - Phasic 3. Axillary Vein: Compressibility - Fully compressible: Thrombus - None 4. Brachial Vein: Compressibility - Fully compressible: Thrombus - None 5. Ulnar Vein:Compressibility - Fully compressible: Thrombus - None 6. Radial Vein:Compressibility - Fully compressible: Thrombus - None 7. Cephalic Vein: Compressibility - Fully compressible: thrombus - None 7.1. Upper Arm: Proximal Diameter: cm. Mid Diameter: cm. Distal Diameter: cm. 7.2. Forearm: Proximal Diameter: 0.31cm. Mid Diameter:0.36cm. Distal Diameter: 0.34cm 8. Basilic Vein:Compressibility - Fully compressible: thrombus - None 8.1. Upper Arm:Proximal Diameter: 0.52cm. Mid Diameter: 0.47cm. Distal Diameter: 0.48cm. Antecubital Fossa Diameter: 0.57cm. 8.2. Forearm: Proximal Diameter: 0.35cm. Mid Diameter:0.36cm. Distal Diameter: 0.23cm. OTHER FINDINGS: Right: Chronic deep vein thrombosis noted in the right subclavian and axillary veins. Unable to image the right fistula graft due to dressing on upper arm Left: None. IMPRESSION: Right: Diameter measurements of the right cephalic vein is measured between 0.24 cm and 0.56 cm and basilic vein is measured between 0.26 cm and 0.40 cm. Left: Diameter measurements of the left cephalic vein is measured between 0.31 cm and 0.36 cm and basilic vein is measured between 0.23cm and 0.57cm.
--- NOTE | 2016-12-28 17:53 | CP.PCM.PN ---
Addendum entered and electronically signed by Donavon Melgoza 12/28/16 17:57: New addition to assessment/plan: Mediastinal/Pleural Densities seen on CT 12/28: Mass-like mediastinal/pleural densities are again seen increased in size at the anterior mediastinum and right lateral mediastinal base suspicious for infectious, inflammatory or neoplastic etiology. Further clinical correlation is advised her confirmed possible nuclear PET scan for additional characterization or even tissue diagnosis. Original Note: <Donavon Melgoza - Last Filed: 12/28/16 17:49> Subjective - Date & Time of Evaluation Date of Evaluation: 12/28/16 Time of Evaluation: 09:15 - Subjective Subjective: Patient S and E at bedside. Patient had no complaints when I saw him this morning. He was aware of the plan organized by vascular. He denied cp, sob, f/c , abd pain, n/v/d/c/, bleeding. Objective - Vital Signs/Intake and Output Vital Signs (last 24 hours): Temp Pulse Resp BP Pulse Ox 97.6 F 58 L 20 156/89 H 96 12/28/16 07:29 12/28/16 07:29 12/28/16 07:29 12/28/16 07:29 12/28/16 07:29 Intake and Output: 12/28/16 12/28/16 06:59 18:59 Intake Total 100 Balance 100 - Medications Medications: Current Medications Acetaminophen (Tylenol 325mg Tab) 650 mg PO Q6 PRN PRN Reason: Pain, moderate (4-7) Amlodipine Besylate (Norvasc) 5 mg PO DAILY [facility] Last Admin: 12/28/16 10:24 Dose: Not Given Clonidine HCl (Catapres) 0.1 mg PO BID [facility] Last Admin: 12/28/16 10:08 Dose: Not Given Diphenhydramine HCl (Benadryl) 25 mg PO Q8 PRN PRN Reason: Itching / Pruritus Last Admin: 12/25/16 18:09 Dose: 25 mg Ergocalciferol (Drisdol 50,000 Intl Units Cap) 1 cap PO QWK [facility] Last Admin: 12/25/16 10:04 Dose: 1 cap Ferrous Sulfate (Feosol) 325 mg PO DAILY [facility] Last Admin: 12/28/16 10:08 Dose: Not Given Metoprolol Tartrate (Lopressor) 50 mg PO BID [facility] Last Admin: 12/28/16 10:08 Dose: Not Given Pantoprazole Sodium (Protonix Ec Tab) 40 mg PO DAILY [facility] Last Admin: 12/28/16 10:42 Dose: 40 mg Fluticasone/Salmeterol (Advair Diskus 250/50) 1 puff INH RQ12 [facility] Last Admin: 12/27/16 19:08 Dose: 1 puff Sevelamer Carbonate (Renvela) 2.4 gm PO TIDCC [facility] Last Admin: 12/28/16 12:26 Dose: Not Given Tamsulosin HCl (Flomax) 0.4 mg PO DAILY [facility] Last Admin: 12/28/16 10:42 Dose: 0.4 mg Tiotropium [place] (Spiriva) 18 mcg INH RQD [facility] Last Admin: 12/27/16 09:57 Dose: 18 mcg Vitamin B Complex/Vit C/Folic Acid (Nephro-Anival) 1 tab PO DAILY [facility] Last Admin: 12/28/16 10:41 Dose: 1 tab - Labs Labs: 12/28/16 06:39 12/28/16 06:39 PT 11.5 SECONDS (9.7-12.2) 12/23/16 19:34 INR 1.0 12/23/16 19:34 APTT 30 SECONDS (21-34) 12/25/16 08:35 - Constitutional Appears: Well, Non-toxic, No Acute Distress - Head Exam Head Exam: ATRAUMATIC, NORMAL INSPECTION, NORMOCEPHALIC - Eye Exam Eye Exam: EOMI, Normal appearance, PERRL - ENT Exam ENT Exam: Mucous Membranes Moist, Normal Exam - Neck Exam Neck Exam: Full ROM, Normal Inspection - Respiratory Exam Respiratory Exam: Clear to Ausculation Bilateral, NORMAL BREATHING PATTERN - GI/Abdominal Exam GI & Abdominal Exam: Soft, Normal Bowel Sounds. absent: Tenderness - Rectal Exam Rectal Exam: Deferred - Extremities Exam Additional comments: femoral catheter dressing c/d/i - Neurological Exam Neurological Exam: Alert, Awake, Oriented x3 - Psychiatric Exam Psychiatric exam: Normal Affect, Normal Mood - Skin Skin Exam: Dry, Intact, Normal Color, Warm Assessment and Plan - Assessment and Plan (Free Text) Assessment: Malfunctioning Right AV Graft Site Assessment and Plan: 12/28: patient had CT venogram of upper extremities and vein mapping today and HD in the late afternoon. plan is for OR tomorrow, patient will be npo after midnight. 12/27: Per surgery, the plan is to keep the right femoral catheter in place until the patient has successful HD via RUE AV graft. A vein mapping study will be done. 12/26: Patient was s/p IR procedure for "Right arm AVG thrombectomy, ORAL SURGERY TECHNICIAN axillary vein stenosis, ORAL SURGERY TECHNICIAN subclavian vein stenosis, Stent placement 12 mm subclavian vein" performed earlier today. Patient stated his right arm AV shunt failed dialysis and was non-functional and that the femoral permacath was used instead. We will follow up with the specialists to see how they would like to proceed. Will likely need permanent access in the future- IR consulted for assessment. F/ U Status: Acute S/P Right femoral permacath placement Assessment and Plan: General Surgery on board- Patient s/p femoral permacath placement Continue to monitor F/U recommendations Status: Acute ESRD (end stage renal disease) on dialysis Assessment and Plan: Dialysis on M,W,F * Will likely need permanent access in the future- IR consulted for assessment. F/U * Nephrology- Dr. Alegre- F/U recommendations Status: Acute Anemia Assessment and Plan: H/H on admission 11.5/35.5 Will need to obtain repeat labs on HD since patient likely has poor access Continue home medication: * Ferrous sulfate 325mg PO daily Monitor H/H with labs Status: Acute Hypertension Assessment and Plan: 12/26: norvasc 5mg po daily added today due to elevated morning BP Lopressor 50mg PO BID Continue to monitor Status: Chronic BPH (benign prostatic hyperplasia) Assessment and Plan: Continue home medication: * Flomax 0.4 PO daily Status: Chronic COPD (chronic obstructive pulmonary disease) Assessment and Plan: Continue home medication * Spiriva 18mcg INH PRN * Duonebs * Oxygen PRN Status: Chronic History of lymphoma Assessment and Plan: Had chemotherapy for 6 months (2010) Status: Acute Prophylactic measure Assessment and Plan: SCD GI prophylaxis: Protonix 40 mg PO daily DVT prophylaxis: Heparin SC Q12 Status: Acute <Paul Edwards M - Last Filed: 12/30/16 14:36> Objective - Vital Signs/Intake and Output Vital Signs (last 24 hours): Temp Pulse Resp BP Pulse Ox 98.6 F 82 16 164/79 H 98 12/30/16 09:35 12/30/16 09:35 12/30/16 09:35 12/30/16 11:25 12/30/16 09:35 Intake and Output: 12/30/16 12/30/16 06:59 18:59 Intake Total 1000 180 Balance 1000 180 - Medications Medications: Current Medications Acetaminophen (Tylenol 325mg Tab) 650 mg PO Q6 PRN PRN Reason: Pain, moderate (4-7) Amlodipine Besylate (Norvasc) 5 mg PO DAILY [facility] Last Admin: 12/30/16 14:12 Dose: 5 mg Clonidine HCl (Catapres) 0.1 mg PO BID [facility] Last Admin: 12/30/16 11:00 Dose: Not Given Diphenhydramine HCl (Benadryl) 25 mg PO Q8 PRN PRN Reason: Itching / Pruritus Last Admin: 12/30/16 06:02 Dose: 25 mg Ergocalciferol (Drisdol 50,000 Intl Units Cap) 1 cap PO QWK [facility] Last Admin: 12/25/16 10:04 Dose: 1 cap Ferrous Sulfate (Feosol) 325 mg PO DAILY [facility] Last Admin: 12/30/16 14:12 Dose: 325 mg Heparin Sodium (Porcine) (Heparin) 2,000 units IVP [facility] Stop: 01/04/17 09:01 Last Admin: 12/30/16 11:15 Dose: 2,000 units Heparin Sodium (Porcine) (Heparin) 5,400 units IVP [facility] Stop: 01/04/17 09:01 Last Admin: 12/30/16 13:11 Dose: 5,400 units Metoprolol Tartrate (Lopressor) 50 mg PO BID [facility] Last Admin: 12/30/16 11:00 Dose: Not Given Ondansetron HCl (Zofran Inj) 4 mg IVP Q6 PRN PRN Reason: Nausea/Vomiting Oxycodone/Acetaminophen (Percocet 5/325 Mg Tab) 1 tab PO Q6H PRN PRN Reason: Pain, moderate (4-7) Stop: 01/01/17 12:27 Last Admin: 12/30/16 11:09 Dose: 1 tab Pantoprazole Sodium (Protonix Ec Tab) 40 mg PO DAILY [facility] Last Admin: 12/30/16 14:12 Dose: 40 mg Fluticasone/Salmeterol (Advair Diskus 250/50) 1 puff INH RQ12 [facility] Last Admin: 12/30/16 08:48 Dose: 1 puff Sevelamer Carbonate (Renvela) 2.4 gm PO TIDCC [facility] Last Admin: 12/30/16 14:13 Dose: Not Given Tamsulosin HCl (Flomax) 0.4 mg PO DAILY [facility] Last Admin: 12/30/16 14:12 Dose: 0.4 mg Tiotropium [place] (Spiriva) 18 mcg INH RQD [facility] Last Admin: 12/30/16 08:48 Dose: 18 mcg Vitamin B Complex/Vit C/Folic Acid (Nephro-Anival) 1 tab PO DAILY [facility] Last Admin: 12/30/16 11:00 Dose: Not Given - Labs Labs: 12/29/16 04:31 12/29/16 04:31 PT 11.5 SECONDS (9.7-12.2) 12/29/16 07:58 INR 1.0 12/29/16 07:58 APTT 32 SECONDS (21-34) 12/29/16 07:58 Attending/Attestation - Attestation I have personally seen and examined this patient.: Yes I have fully participated in the care of the patient.: Yes I have reviewed all pertinent clinical information, including history, physical exam and plan: Yes Notes (Text): 12/30/16 14:35 Patient was seen and examined at bedside with the resident Patient is scheduled for AV fistula in the OR in the morning We will continue hemodialysis from the femoral catheter Discussed the plan of care with the resident and I agree with the history and physical and assessment/plan by the resident
[2016-12-29 04:36] LABS: BASO % 0.6 % (0.0-2.0); EOS # 0.2 K/uL (0.0-0.7); EOS % 6.9 % (0.0-4.0); HEMOGLOBIN 11.6 g/dL (12.0-18.0); LYMPH # 0.5 K/uL (1.0-4.3); MEAN CELL VOLUME 91.9 fL (80.0-94.0); MEAN CORPUSCULAR HEMOGLOBIN 30.2 pg (27.0-31.0); MEAN CORPUSCULAR HGB CONC 32.9 g/dL (33.0-37.0); MEAN PLATELET VOLUME 9.5 fL (7.2-11.7); MONO # 0.4 K/uL (0.0-0.8); MONO % 11.4 % (0.0-10.0); NEUT # 2.2 K/uL (1.8-7.0); NEUT % 65.1 % (50.0-75.0); RBC 3.84 Mil/uL (4.40-5.90); RED CELL DISTRIBUTION WIDTH 16.9 % (11.5-14.5); WHITE BLOOD COUNT 3.4 K/uL (4.8-10.8)
[2016-12-29 04:42] LABS: ALBUMIN 3.6 g/dL (3.5-5.0)
[2016-12-29 04:45] LABS: ALB/GLOB RATIO 1.4 (1.0-2.1)
[2016-12-29 04:46] LABS: CALCIUM 8.6 mg/dl (8.6-10.4)
--- NOTE | 2016-12-29 07:21 | CP.PCM.PN ---
<Donavon Melgoza - Last Filed: 12/29/16 20:40> Subjective - Date & Time of Evaluation Date of Evaluation: 12/29/16 Time of Evaluation: 07:30 - Subjective Subjective: Patient S and E this morning. Patient was npo for OR this morning. Patient had no complaints. He understood the plan regarding his dialysis access. He denies cp, sob, f/c, n/v/d/c, bleeding. He was seen again after his left arm shunt placement procedure. He said he felt nauseas. Per nursing note, patient vomited around 6pm after which he said he felt much better. Objective - Vital Signs/Intake and Output Vital Signs (last 24 hours): Temp Pulse Resp BP Pulse Ox 98.7 F 63 20 141/76 96 12/28/16 23:51 12/28/16 23:51 12/28/16 23:51 12/28/16 23:51 12/28/16 23:51 - Medications Medications: Current Medications Acetaminophen (Tylenol 325mg Tab) 650 mg PO Q6 PRN PRN Reason: Pain, moderate (4-7) Amlodipine Besylate (Norvasc) 5 mg PO DAILY [facility] Last Admin: 12/28/16 10:24 Dose: Not Given Clonidine HCl (Catapres) 0.1 mg PO BID [facility] Last Admin: 12/28/16 18:55 Dose: 0.1 mg Diphenhydramine HCl (Benadryl) 25 mg PO Q8 PRN PRN Reason: Itching / Pruritus Last Admin: 12/25/16 18:09 Dose: 25 mg Ergocalciferol (Drisdol 50,000 Intl Units Cap) 1 cap PO QWK [facility] Last Admin: 12/25/16 10:04 Dose: 1 cap Ferrous Sulfate (Feosol) 325 mg PO DAILY [facility] Last Admin: 12/28/16 10:08 Dose: Not Given Metoprolol Tartrate (Lopressor) 50 mg PO BID [facility] Last Admin: 12/28/16 18:55 Dose: 50 mg Pantoprazole Sodium (Protonix Ec Tab) 40 mg PO DAILY [facility] Last Admin: 12/28/16 10:42 Dose: 40 mg Fluticasone/Salmeterol (Advair Diskus 250/50) 1 puff INH RQ12 [facility] Last Admin: 12/27/16 19:08 Dose: 1 puff Sevelamer Carbonate (Renvela) 2.4 gm PO TIDCC [facility] Last Admin: 12/28/16 19:00 Dose: 2.4 gm Tamsulosin HCl (Flomax) 0.4 mg PO DAILY [facility] Last Admin: 12/28/16 10:42 Dose: 0.4 mg Tiotropium [place] (Spiriva) 18 mcg INH RQD [facility] Last Admin: 12/27/16 09:57 Dose: 18 mcg Vitamin B Complex/Vit C/Folic Acid (Nephro-Anival) 1 tab PO DAILY [facility] Last Admin: 12/28/16 10:41 Dose: 1 tab - Labs Labs: 12/29/16 04:31 12/29/16 04:31 PT 11.5 SECONDS (9.7-12.2) 12/23/16 19:34 INR 1.0 12/23/16 19:34 APTT 30 SECONDS (21-34) 12/25/16 08:35 - Constitutional Appears: Well, No Acute Distress - Head Exam Head Exam: NORMAL INSPECTION - Eye Exam Eye Exam: Normal appearance - ENT Exam ENT Exam: Mucous Membranes Moist - Neck Exam Neck Exam: Normal Inspection - Respiratory Exam Respiratory Exam: Clear to Ausculation Bilateral, NORMAL BREATHING PATTERN - Cardiovascular Exam Cardiovascular Exam: REGULAR RHYTHM, +S1, +S2. absent: Murmur - GI/Abdominal Exam GI & Abdominal Exam: Soft, Normal Bowel Sounds - Rectal Exam Rectal Exam: Deferred - Extremities Exam Additional comments: femoral permacath seen in right leg, dressing appeared clean/dry/intact - Neurological Exam Neurological Exam: Alert, Awake - Psychiatric Exam Psychiatric exam: Normal Affect, Normal Mood - Skin Skin Exam: Dry, Intact, Normal Color, Warm Assessment and Plan - Assessment and Plan (Free Text) Assessment: Malfunctioning Right AV Graft Site Assessment and Plan: 12/29: pt s/p left arm AV shunt placement 12/28: patient had CT venogram of upper extremities and vein mapping today and HD in the late afternoon. plan is for OR tomorrow, patient will be npo after midnight. 12/27: Per surgery, the plan is to keep the right femoral catheter in place until the patient has successful HD via RUE AV graft. A vein mapping study will be done. 12/26: Patient was s/p IR procedure for "Right arm AVG thrombectomy, SENIOR OPERATIONS ANALYST axillary vein stenosis, SENIOR OPERATIONS ANALYST subclavian vein stenosis, Stent placement 12 mm subclavian vein" performed earlier today. Patient stated his right arm AV shunt failed dialysis and was non-functional and that the femoral permacath was used instead. We will follow up with the specialists to see how they would like to proceed. Will likely need permanent access in the future- IR consulted for assessment. F/ U Status: Acute Thrombocytopenia 12/29: platelets 65 today trending down. Per nephrology, Dr Alegre, "considering plat transfusion" S/P Right femoral permacath placement Assessment and Plan: General Surgery on board- Patient s/p femoral permacath placement Continue to monitor F/U recommendations Status: Acute ESRD (end stage renal disease) on dialysis Assessment and Plan: Dialysis on M,W,F * Will likely need permanent access in the future- IR consulted for assessment. F/U * Nephrology- Dr. Alegre- F/U recommendations Status: Acute Anemia Assessment and Plan: H/H on admission 11.5/35.5 Will need to obtain repeat labs on HD since patient likely has poor access Continue home medication: * Ferrous sulfate 325mg PO daily Monitor H/H with labs Status: Acute Hypertension Assessment and Plan: 12/26: norvasc 5mg po daily added today due to elevated morning BP Lopressor 50mg PO BID Continue to monitor Status: Chronic BPH (benign prostatic hyperplasia) Assessment and Plan: Continue home medication: * Flomax 0.4 PO daily Status: Chronic COPD (chronic obstructive pulmonary disease) Assessment and Plan: Continue home medication * Spiriva 18mcg INH PRN * Duonebs * Oxygen PRN Status: Chronic Mediastinal/Pleural Densities seen on CT 12/28: Mass-like mediastinal/pleural densities are again seen increased in size at the anterior mediastinum and right lateral mediastinal base suspicious for infectious, inflammatory or neoplastic etiology. Further clinical correlation is advised her confirmed possible nuclear PET scan for additional characterization or even tissue diagnosis. History of lymphoma Assessment and Plan: Had chemotherapy for 6 months (2010) Status: Acute Prophylactic measure Assessment and Plan: SCD GI prophylaxis: Protonix 40 mg PO daily DVT prophylaxis: Heparin SC Q12 Status: Acute <Paul Edwards M - Last Filed: 12/30/16 18:18> Objective - Vital Signs/Intake and Output Vital Signs (last 24 hours): Temp Pulse Resp BP Pulse Ox 97.8 F 82 16 164/79 H 98 12/30/16 16:56 12/30/16 09:35 12/30/16 09:35 12/30/16 11:25 12/30/16 09:35 Intake and Output: 12/30/16 12/30/16 06:59 18:59 Intake Total 1000 180 Balance 1000 180 - Medications Medications: Current Medications Acetaminophen (Tylenol 325mg Tab) 650 mg PO Q6 PRN PRN Reason: Pain, moderate (4-7) Last Admin: 12/30/16 16:56 Dose: 650 mg Amlodipine Besylate (Norvasc) 5 mg PO DAILY [facility] Last Admin: 12/30/16 14:12 Dose: 5 mg Clonidine HCl (Catapres) 0.1 mg PO BID [facility] Last Admin: 12/30/16 17:03 Dose: 0.1 mg Diphenhydramine HCl (Benadryl) 25 mg PO Q8 PRN PRN Reason: Itching / Pruritus Last Admin: 12/30/16 06:02 Dose: 25 mg Ergocalciferol (Drisdol 50,000 Intl Units Cap) 1 cap PO QWK [facility] Last Admin: 12/25/16 10:04 Dose: 1 cap Ferrous Sulfate (Feosol) 325 mg PO DAILY [facility] Last Admin: 12/30/16 14:12 Dose: 325 mg Heparin Sodium (Porcine) (Heparin) 2,000 units IVP [facility] Stop: 01/04/17 09:01 Last Admin: 12/30/16 11:15 Dose: 2,000 units Heparin Sodium (Porcine) (Heparin) 5,400 units IVP [facility] Stop: 01/04/17 09:01 Last Admin: 12/30/16 13:11 Dose: 5,400 units Metoprolol Tartrate (Lopressor) 50 mg PO BID [facility] Last Admin: 12/30/16 17:07 Dose: 50 mg Ondansetron HCl (Zofran Inj) 4 mg IVP Q6 PRN PRN Reason: Nausea/Vomiting Oxycodone/Acetaminophen (Percocet 5/325 Mg Tab) 1 tab PO Q6H PRN PRN Reason: Pain, moderate (4-7) Stop: 01/01/17 12:27 Last Admin: 12/30/16 11:09 Dose: 1 tab Pantoprazole Sodium (Protonix Ec Tab) 40 mg PO DAILY [facility] Last Admin: 12/30/16 14:12 Dose: 40 mg Fluticasone/Salmeterol (Advair Diskus 250/50) 1 puff INH RQ12 [facility] Last Admin: 12/30/16 08:48 Dose: 1 puff Sevelamer Carbonate (Renvela) 2.4 gm PO TIDCC [facility] Last Admin: 12/30/16 17:09 Dose: Not Given Tamsulosin HCl (Flomax) 0.4 mg PO DAILY [facility] Last Admin: 12/30/16 14:12 Dose: 0.4 mg Tiotropium [place]ova (Spiriva) 18 mcg INH RQD [facility] Last Admin: 12/30/16 08:48 Dose: 18 mcg Vitamin B Complex/Vit C/Folic Acid (Nephro-Anival) 1 tab PO DAILY [facility] Last Admin: 12/30/16 11:00 Dose: Not Given - Labs Labs: 12/29/16 04:31 12/29/16 04:31 PT 11.5 SECONDS (9.7-12.2) 12/29/16 07:58 INR 1.0 12/29/16 07:58 APTT 32 SECONDS (21-34) 12/29/16 07:58 Attending/Attestation - Attestation I have personally seen and examined this patient.: Yes I have fully participated in the care of the patient.: Yes I have reviewed all pertinent clinical information, including history, physical exam and plan: Yes Notes (Text): 12/30/16 18:18 Patient for placement of AV fistula today Continue hemodialysis from the femoral catheter Discussed the plan of care with the resident and agree with the history and physical and assessment/plan documented above.
--- NOTE | 2016-12-29 08:00 | RAD ---
PROCEDURE: HISTORY: AVF NON-FUNCTIONING For PermCath placement COMPARISON.: None TECHNIQUE: Total fluoroscopic time utilized during the procedure: 14.7 seconds. Total dose 3.63 mGy cm squared FINDINGS: Submitted images from the current procedure: 3 Please refer to the physician's notes performing the procedure. IMPRESSION: Less than 1 hour fluoroscopic time utilized during performance of the procedure
[2016-12-29] MEDS: Tiotropium 18 mcg Cap For Inhalation INH SCH (08:10)
[2016-12-29] MEDS: Fluticasone-Salmeterol 250-50mcg Diskus INH SCH ×2 (08:10→20:40)
[2016-12-29 08:13] LABS: PROTHROMBIN TIME 11.5 SECONDS (9.7-12.2)
[2016-12-29] MEDS ORDERED: Propofol 10 mg/ml Inj (20 ML) ONE (09:43)
[2016-12-29] MEDS ORDERED: Midazolam 2 MG/2 ML VIAL ONE (09:43)
[2016-12-29] MEDS ORDERED: HEPARIN-NS 5,000 UNITS/500 ML 5,000 UNIT/500 ML BAG IV ONE (09:56)
[2016-12-29] MEDS ORDERED: ceFAZolin IV 2 gm in Dextrose 1 GM/50 ML BAG IVPB ONE (09:56)
[2016-12-29] MEDS: Sevelamer Carb 2.4 gm/Packet PO SCH ×4 (09:57→17:22)
[2016-12-29] MEDS ORDERED: Iodixanol 320 MG/ML 200 ML BOTTLE IV ONE (09:57)
[2016-12-29] MEDS: Pantoprazole 40 mg EC Tab PO SCH (09:58)
[2016-12-29] MEDS: Multivitamin Vitamin B Complex (Nephro-Vite) Tab PO SCH (10:00)
[2016-12-29] MEDS ORDERED: Sodium Chloride 0.9% 500 ML IV ONE (10:08)
--- NOTE | 2016-12-29 10:19 | CP.PCM.PN ---
Subjective - Date & Time of Evaluation Date of Evaluation: 12/29/16 Time of Evaluation: 10:16 - Subjective Subjective: Seen before AV fistula creation today s/p dialysis 12/28- UF 2000ml Otherwise feels ok- no CPs, SOB, n, v, f, chills Objective - Vital Signs/Intake and Output Vital Signs (last 24 hours): Temp Pulse Resp BP Pulse Ox 97.9 F 52 L 20 151/84 H 97 12/29/16 08:56 12/29/16 08:56 12/29/16 08:56 12/29/16 08:56 12/29/16 08:56 - Medications Medications: Current Medications Acetaminophen (Tylenol 325mg Tab) 650 mg PO Q6 PRN PRN Reason: Pain, moderate (4-7) Amlodipine Besylate (Norvasc) 5 mg PO DAILY [facility] Last Admin: 12/28/16 10:24 Dose: Not Given Clonidine HCl (Catapres) 0.1 mg PO BID [facility] Last Admin: 12/29/16 09:58 Dose: Not Given Diphenhydramine HCl (Benadryl) 25 mg PO Q8 PRN PRN Reason: Itching / Pruritus Last Admin: 12/25/16 18:09 Dose: 25 mg Ergocalciferol (Drisdol 50,000 Intl Units Cap) 1 cap PO QWK [facility] Last Admin: 12/25/16 10:04 Dose: 1 cap Ferrous Sulfate (Feosol) 325 mg PO DAILY [facility] Last Admin: 12/29/16 09:58 Dose: Not Given Metoprolol Tartrate (Lopressor) 50 mg PO BID [facility] Last Admin: 12/29/16 09:58 Dose: Not Given Pantoprazole Sodium (Protonix Ec Tab) 40 mg PO DAILY [facility] Last Admin: 12/29/16 09:58 Dose: Not Given Fluticasone/Salmeterol (Advair Diskus 250/50) 1 puff INH RQ12 [facility] Last Admin: 12/29/16 08:10 Dose: Not Given Sevelamer Carbonate (Renvela) 2.4 gm PO TIDCC [facility] Last Admin: 12/29/16 09:57 Dose: Not Given Tamsulosin HCl (Flomax) 0.4 mg PO DAILY [facility] Last Admin: 12/29/16 09:58 Dose: Not Given Tiotropium [place] (Spiriva) 18 mcg INH RQD [facility] Last Admin: 12/29/16 08:10 Dose: Not Given Vitamin B Complex/Vit C/Folic Acid (Nephro-Anival) 1 tab PO DAILY [facility] Last Admin: 12/28/16 10:41 Dose: 1 tab - Labs Labs: 12/29/16 04:31 12/29/16 04:31 PT 11.5 SECONDS (9.7-12.2) 12/29/16 07:58 INR 1.0 12/29/16 07:58 APTT 32 SECONDS (21-34) 12/29/16 07:58 - Constitutional Appears: No Acute Distress, Chronically Ill - Head Exam Head Exam: ATRAUMATIC, NORMAL INSPECTION - Eye Exam Eye Exam: EOMI, Normal appearance - Neck Exam Neck Exam: Normal Inspection. absent: Tenderness - Respiratory Exam Respiratory Exam: Clear to Ausculation Bilateral, NORMAL BREATHING PATTERN - Cardiovascular Exam Cardiovascular Exam: REGULAR RHYTHM, +S1 - GI/Abdominal Exam GI & Abdominal Exam: Soft. absent: Tenderness - Extremities Exam Extremities Exam: Normal Inspection. absent: Tenderness - Neurological Exam Neurological Exam: Alert, CN II-XII Intact - Skin Skin Exam: Dry, Warm Assessment and Plan (1) Anemia Status: Acute (2) Dialysis AV fistula malfunction Status: Acute (3) ESRD (end stage renal disease) on dialysis Status: Acute (4) Essential hypertension Status: Acute - Assessment and Plan (Free Text) Plan: New AV access now Considering plat transfusion Repeat HD in AM
[2016-12-29] MEDS ORDERED: Neostigmine Methylsulfate 3mg/3ml Syringe IV ONE (11:41)
--- NOTE | 2016-12-29 12:20 | PCM.SURG1 ---
Surgeon's Initial Post Op Note - Surgeon's Notes Surgeon: Dr. Altman Operation Performed: Left forearm loop hybrid AV shunt, cephalic arch balloon dilation
--- NOTE | 2016-12-29 12:25 | PCM.SURG1 ---
Surgeon's Initial Post Op Note - Surgeon's Notes Surgeon: Dr. Altman Video Journalist: Sylwia De La Rosa, PGY-II; Mohsen Reynolds, OMS-III Pre-Operative Diagnosis: ESRD on hemodialysis, Non-functioning right AV fistula Operative Findings: See full operative report Post-Operative Diagnosis: Same Operation Performed: Left forearm loop hybrid AV shunt with cephalic arch balloon dilation Specimen/Specimens Removed: none Estimated Blood Loss: EBL {In ML}: 100 Blood Products Given: N/A Date of Surgery/Procedure: 12/29/16 Time of Surgery/Procedure: 10:00
[2016-12-29] MEDS: HYDROmorphone 0.5 mg/0.5 ml ISec IVP PRN ×3 (12:50→13:19)
--- NOTE | 2016-12-29 13:37 | RAD ---
PROCEDURE: Intraoperative Fluoroscopy. HISTORY: RENAL FAILURE/CLOTTED AV SHUNT FINDINGS: Fluoroscopic assistance was provided for AV shunt manipulation. Total fluoroscopic time (continuous mode) utilized during the procedure: 133.7 seconds
[2016-12-29] MEDS: Oxycodone/Acetaminophen 5/325 mg Tab PO PRN ×2 (14:49→21:00)
--- NOTE | 2016-12-29 23:39 | OP ---
PROCEDURE DATE: 12/29/2016 PREOPERATIVE DIAGNOSIS: Renal failure. POSTOPERATIVE DIAGNOSIS: Renal failure. PROCEDURE CARRIED OUT: Left forearm arteriovenous loop hybrid shunt. SURGEON: Anselmo Altman Jr., MD VENDING ATTENDANT: , resident ANESTHESIA ADMINISTERED BY: SHEEP SHEARER. 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 OPERATIVE FINDINGS: The completion angiogram showed that there was a well-deployed stent in the region of the elbow. However, in the central veins just distal to the cephalic arch, there was a narrowing. This was dilated with an 8 mm balloon with a satisfactory result and I did not pursue beyond that. At the end of the procedure, the patient had palpable pulse in the wrist and good thrill through the shunt. DESCRIPTION OF PROCEDURE: The patient was given general anesthesia and intravenous antibiotics. The area was vein mapped again. The only suitable vein was the brachial vein. We then carried out a forearm loop shunt deploying a 6 mm hybrid graft at this location, which went quite well. The anastomosis was done using loop magnification and heparin anticoagulation. After completion of the procedure, the hemostasis was adequate and this was also difficult because the patient had a low platelet count. We then closed wounds and terminated the procedure. At the end of the procedure, we had a forearm loop shunt with the medial site being the venous site and the arterial site being lateral. There was good flow, good pulse, and the patient tolerated the procedure well. Operation, he had had hybrid AV shunt performed and balloon angioplasty of the left subclavian vein. Anselmo Altman Jr., MD cc: Christiano Alegre MD
[2016-12-30] MEDS: Oxycodone/Acetaminophen 5/325 mg Tab PO PRN ×2 (03:45→11:09)
--- NOTE | 2016-12-30 07:55 | CP.PCM.PN ---
Subjective - Date & Time of Evaluation Date of Evaluation: 12/30/16 Time of Evaluation: 07:00 - Subjective Subjective: Vascular sx progress note for Dr. Roselyn Christine, PGY-1 Pt S & E at bedside. Pt reports some pain, especially with movement of LUE. Denies other complaints. Objective - Vital Signs/Intake and Output Vital Signs (last 24 hours): Temp Pulse Resp BP Pulse Ox 97.6 F 75 20 180/67 H 99 12/30/16 07:33 12/30/16 07:33 12/30/16 07:33 12/30/16 07:33 12/30/16 07:33 Intake and Output: 12/30/16 12/30/16 06:59 18:59 Intake Total 1000 180 Balance 1000 180 - Medications Medications: Current Medications Acetaminophen (Tylenol 325mg Tab) 650 mg PO Q6 PRN PRN Reason: Pain, moderate (4-7) Amlodipine Besylate (Norvasc) 5 mg PO DAILY [facility] Last Admin: 12/29/16 14:50 Dose: 5 mg Clonidine HCl (Catapres) 0.1 mg PO BID [facility] Last Admin: 12/29/16 17:34 Dose: 0.1 mg Diphenhydramine HCl (Benadryl) 25 mg PO Q8 PRN PRN Reason: Itching / Pruritus Last Admin: 12/30/16 06:02 Dose: 25 mg Ergocalciferol (Drisdol 50,000 Intl Units Cap) 1 cap PO QWK [facility] Last Admin: 12/25/16 10:04 Dose: 1 cap Ferrous Sulfate (Feosol) 325 mg PO DAILY [facility] Last Admin: 12/29/16 09:58 Dose: Not Given Metoprolol Tartrate (Lopressor) 50 mg PO BID [facility] Last Admin: 12/29/16 17:34 Dose: 50 mg Ondansetron HCl (Zofran Inj) 4 mg IVP Q6 PRN PRN Reason: Nausea/Vomiting Oxycodone/Acetaminophen (Percocet 5/325 Mg Tab) 1 tab PO Q6H PRN PRN Reason: Pain, moderate (4-7) Stop: 01/01/17 12:27 Last Admin: 12/30/16 03:45 Dose: 1 tab Pantoprazole Sodium (Protonix Ec Tab) 40 mg PO DAILY [facility] Last Admin: 12/29/16 09:58 Dose: Not Given Fluticasone/Salmeterol (Advair Diskus 250/50) 1 puff INH RQ12 [facility] Last Admin: 12/29/16 20:40 Dose: 1 puff Sevelamer Carbonate (Renvela) 2.4 gm PO TIDCC [facility] Last Admin: 12/29/16 17:22 Dose: 2.4 gm Tamsulosin HCl (Flomax) 0.4 mg PO DAILY [facility] Last Admin: 12/29/16 09:58 Dose: Not Given Tiotropium [place] (Spiriva) 18 mcg INH RQD [facility] Last Admin: 12/29/16 08:10 Dose: Not Given Vitamin B Complex/Vit C/Folic Acid (Nephro-Anival) 1 tab PO DAILY [facility] Last Admin: 12/29/16 10:00 Dose: Not Given - Labs Labs: 12/29/16 04:31 12/29/16 04:31 PT 11.5 SECONDS (9.7-12.2) 12/29/16 07:58 INR 1.0 12/29/16 07:58 APTT 32 SECONDS (21-34) 12/29/16 07:58 - Constitutional Appears: Non-toxic, No Acute Distress - Head Exam Head Exam: ATRAUMATIC, NORMAL INSPECTION, NORMOCEPHALIC - Eye Exam Eye Exam: EOMI, Normal appearance - ENT Exam ENT Exam: Mucous Membranes Moist - Neck Exam Neck Exam: Full ROM - Respiratory Exam Respiratory Exam: Clear to Ausculation Bilateral, NORMAL BREATHING PATTERN - Cardiovascular Exam Cardiovascular Exam: REGULAR RHYTHM, +S1, +S2 - GI/Abdominal Exam GI & Abdominal Exam: Soft, Normal Bowel Sounds. absent: Tenderness - Extremities Exam Additional comments: LUE w/dressing in place- C/D/I, palpable thrill over dressing, palpable radial pulse, hand with decreased warmth compared to Right. able to move all digits. Right groin area with HD catheter in place, non tender, no erythema or drainage , healing ecchymoses at insertion site. RUE w/dressing over failed AV shunt access site. No thrill, palpable pulses. - Neurological Exam Neurological Exam: Alert, Awake, Oriented x3 - Psychiatric Exam Psychiatric exam: Normal Affect, Normal Mood - Skin Skin Exam: Dry, Normal Color, Warm Assessment and Plan - Assessment and Plan (Free Text) Assessment: 61M POD#1 s/p Left forearm loop hybrid AV shunt with cephalic arch balloon dilation Plan: pain mgmt Encourage IS use Ambulate OOBTC monitor pulses Cont HD via R fem catheter for now DW attending Nanci, PGY-1
[2016-12-30] MEDS: Fluticasone-Salmeterol 250-50mcg Diskus INH SCH (08:48)
[2016-12-30] MEDS: Tiotropium 18 mcg Cap For Inhalation INH SCH (08:48)
[2016-12-30] MEDS: Multivitamin Vitamin B Complex (Nephro-Vite) Tab PO SCH (11:00)
[2016-12-30] MEDS: Sevelamer Carb 2.4 gm/Packet PO SCH ×3 (11:00→17:09)
[2016-12-30] MEDS: Pantoprazole 40 mg EC Tab PO SCH ×2 (11:00→14:12)
--- NOTE | 2016-12-30 12:10 | CP.PCM.CON ---
History of Present Illness - History of Present Illness History of Present Illness: Reason for consultation: abnormal CAT scan of the chest 61M w/PMH sig for ESRD on HD admitted for non-functional RUE Hybrid AV shunt. pt went to dialysis and, it was not functioning/clotted. s/p Right arm AVG thrombectomy, [employer]ENDER axillary vein stenosis, CONDENS[employer] TUBE TENDER subclavian vein stenosis, Stent placement 12 mm subclavian vein. CAT scan of the chest done recently showed increase in size off mediastinal/pleural-based density. Complaining off on and off slight cough but denies shortness of breath. The patient seen during hemodialysis PMH: ESRD on HD (MWF, only goes 2x per week), anemia, HTN, asthma, nephrolithiasias, non hodgkins lymphoma s/p 6 months chemotherapy in 2010 PSH: Kidney stone removal, RUE [place]inder Hybrid AV Shunt (2014) All: Denies SH: Former tobacco use (20 yrs prior), denies ETOH or illicit drug use PMD: David Past Patient History - Infectious Disease Hx of Infectious Diseases: None - Past Medical History & Family History Past Medical History?: Yes - Past Social History Smoking Status: Never Smoked - CARDIAC Hx Hypercholesterolemia: Yes Hx Hypertension: Yes - PULMONARY Hx Chronic Obstructive Pulmonary Disease (COPD): Yes - RENAL Hx Chronic Kidney Disease: Yes - HEMATOLOGICAL/ONCOLOGICAL Hx Anemia: Yes - INTEGUMENTARY Hx Dermatological Problems: Yes Other/Comment: small plastic tube above shunt right arm - MUSCULOSKELETAL/RHEUMATOLOGICAL Hx Musculoskeletal Disorders: Yes Other/Comment: right knee pain - GASTROINTESTINAL Hx Gastrointestinal Disorders: Yes Other/Comment: chronic constipation - GENITOURINARY/GYNECOLOGICAL Hx Genitourinary Disorders: Yes Hx Prostate Problems: Yes (hx of turp) Other/Comment: DIALYSIS - PSYCHIATRIC Hx Substance Use: No - SURGICAL HISTORY Hx Surgeries: Yes - ANESTHESIA Hx Anesthesia: Yes Hx Anesthesia Reactions: No Hx Malignant Hyperthermia: No Meds Allergies/Adverse Reactions: Allergies Allergy/AdvReac Type Severity Reaction Status Date / Time No Known Allergies Allergy Verified 12/23/16 18:53 - Medications Medications: Current Medications Acetaminophen (Tylenol 325mg Tab) 650 mg PO Q6 PRN PRN Reason: Pain, moderate (4-7) Amlodipine Besylate (Norvasc) 5 mg PO DAILY [facility] Last Admin: 12/30/16 11:00 Dose: Not Given Clonidine HCl (Catapres) 0.1 mg PO BID [facility] Last Admin: 12/30/16 11:00 Dose: Not Given Diphenhydramine HCl (Benadryl) 25 mg PO Q8 PRN PRN Reason: Itching / Pruritus Last Admin: 12/30/16 06:02 Dose: 25 mg Ergocalciferol (Drisdol 50,000 Intl Units Cap) 1 cap PO QWK [facility] Last Admin: 12/25/16 10:04 Dose: 1 cap Ferrous Sulfate (Feosol) 325 mg PO DAILY [facility] Last Admin: 12/30/16 11:00 Dose: Not Given Heparin Sodium (Porcine) (Heparin) 2,000 units IVP [facility] Stop: 01/04/17 09:01 Last Admin: 12/30/16 11:15 Dose: 2,000 units Heparin Sodium (Porcine) (Heparin) 5,400 units IVP [facility] Stop: 01/04/17 09:01 Metoprolol Tartrate (Lopressor) 50 mg PO BID [facility] Last Admin: 12/30/16 11:00 Dose: Not Given Ondansetron HCl (Zofran Inj) 4 mg IVP Q6 PRN PRN Reason: Nausea/Vomiting Oxycodone/Acetaminophen (Percocet 5/325 Mg Tab) 1 tab PO Q6H PRN PRN Reason: Pain, moderate (4-7) Stop: 01/01/17 12:27 Last Admin: 12/30/16 11:09 Dose: 1 tab Pantoprazole Sodium (Protonix Ec Tab) 40 mg PO DAILY [facility] Last Admin: 12/30/16 11:00 Dose: Not Given Fluticasone/Salmeterol (Advair Diskus 250/50) 1 puff INH RQ12 [facility] Last Admin: 12/30/16 08:48 Dose: 1 puff Sevelamer Carbonate (Renvela) 2.4 gm PO TIDCC [facility] Last Admin: 12/30/16 11:00 Dose: Not Given Tamsulosin HCl (Flomax) 0.4 mg PO DAILY [facility] Last Admin: 12/30/16 11:00 Dose: Not Given Tiotropium [place] (Spiriva) 18 mcg INH RQD [facility] Last Admin: 12/30/16 08:48 Dose: 18 mcg Vitamin B Complex/Vit C/Folic Acid (Nephro-Anival) 1 tab PO DAILY [facility] Last Admin: 12/30/16 11:00 Dose: Not Given Physical Exam - Head Exam Head Exam: ATRAUMATIC, NORMOCEPHALIC - Eye Exam Eye Exam: Normal appearance - ENT Exam ENT Exam: Mucous Membranes Moist - Neck Exam Neck exam: Positive for: Normal Inspection - Respiratory Exam Respiratory Exam: Clear to Auscultation Bilateral - Cardiovascular Exam Cardiovascular Exam: REGULAR RHYTHM - GI/Abdominal Exam GI & Abdominal Exam: Normal Bowel Sounds, Soft Results - Vital Signs Recent Vital Signs: Last Vital Signs Temp 98.6 F 12/30/16 09:35 Pulse 82 12/30/16 09:35 Resp 16 12/30/16 09:35 BP 164/79 H 12/30/16 11:25 Pulse Ox 98 12/30/16 09:35 - Labs Result Diagrams: 12/29/16 04:31 12/29/16 04:31 Labs: Laboratory Results - last 24 hr 12/29/16 12:27 POC Glucose (mg/dL) 93 Assessment & Plan (1) Lung mass Status: Acute Comment: patient has history of non hodgkins lymphoma s/p 6 months chemotherapy in 2010 at [facility]. [facility] in August/September patient had bone marrow biopsy done by Dr. Brantley and showed no reoccurrence or myelodysplasia. Patient was advised PET scan as outpatient. now. there is increase in size of mediastinal/pleural-based mass. Consider PET scan first and then CT-guided biopsy. Case discussed with Dr. Brantley, and will followup in his office for a PET scan (2) ESRD (end stage renal disease) on dialysis Status: Acute (3) History of lymphoma Status: Acute (4) AV fistula occlusion Status: Acute
--- NOTE | 2016-12-30 14:05 | CP.PCM.PN ---
Subjective - Date & Time of Evaluation Date of Evaluation: 12/30/16 Time of Evaluation: 14:03 - Subjective Subjective: s/p dialysis now- tolerated well s/p new AV fistula left arm- has bruit now Feels well; no n, v, SOB, CPs, d, fevers, chills Labs acceptable BP controlled Objective - Vital Signs/Intake and Output Vital Signs (last 24 hours): Temp Pulse Resp BP Pulse Ox 98.6 F 82 16 164/79 H 98 12/30/16 09:35 12/30/16 09:35 12/30/16 09:35 12/30/16 11:25 12/30/16 09:35 Intake and Output: 12/30/16 12/30/16 06:59 18:59 Intake Total 1000 180 Balance 1000 180 - Medications Medications: Current Medications Acetaminophen (Tylenol 325mg Tab) 650 mg PO Q6 PRN PRN Reason: Pain, moderate (4-7) Amlodipine Besylate (Norvasc) 5 mg PO DAILY [facility] Last Admin: 12/30/16 11:00 Dose: Not Given Clonidine HCl (Catapres) 0.1 mg PO BID [facility] Last Admin: 12/30/16 11:00 Dose: Not Given Diphenhydramine HCl (Benadryl) 25 mg PO Q8 PRN PRN Reason: Itching / Pruritus Last Admin: 12/30/16 06:02 Dose: 25 mg Ergocalciferol (Drisdol 50,000 Intl Units Cap) 1 cap PO QWK [facility] Last Admin: 12/25/16 10:04 Dose: 1 cap Ferrous Sulfate (Feosol) 325 mg PO DAILY [facility] Last Admin: 12/30/16 11:00 Dose: Not Given Heparin Sodium (Porcine) (Heparin) 2,000 units IVP [facility] Stop: 01/04/17 09:01 Last Admin: 12/30/16 11:15 Dose: 2,000 units Heparin Sodium (Porcine) (Heparin) 5,400 units IVP [facility] Stop: 01/04/17 09:01 Last Admin: 12/30/16 13:11 Dose: 5,400 units Metoprolol Tartrate (Lopressor) 50 mg PO BID [facility] Last Admin: 12/30/16 11:00 Dose: Not Given Ondansetron HCl (Zofran Inj) 4 mg IVP Q6 PRN PRN Reason: Nausea/Vomiting Oxycodone/Acetaminophen (Percocet 5/325 Mg Tab) 1 tab PO Q6H PRN PRN Reason: Pain, moderate (4-7) Stop: 01/01/17 12:27 Last Admin: 12/30/16 11:09 Dose: 1 tab Pantoprazole Sodium (Protonix Ec Tab) 40 mg PO DAILY [facility] Last Admin: 12/30/16 11:00 Dose: Not Given Fluticasone/Salmeterol (Advair Diskus 250/50) 1 puff INH RQ12 [facility] Last Admin: 12/30/16 08:48 Dose: 1 puff Sevelamer Carbonate (Renvela) 2.4 gm PO TIDCC [facility] Last Admin: 12/30/16 11:00 Dose: Not Given Tamsulosin HCl (Flomax) 0.4 mg PO DAILY [facility] Last Admin: 12/30/16 11:00 Dose: Not Given Tiotropium [place] (Spiriva) 18 mcg INH RQD [facility] Last Admin: 12/30/16 08:48 Dose: 18 mcg Vitamin B Complex/Vit C/Folic Acid (Nephro-Anival) 1 tab PO DAILY [facility] Last Admin: 12/30/16 11:00 Dose: Not Given - Labs Labs: 12/29/16 04:31 12/29/16 04:31 PT 11.5 SECONDS (9.7-12.2) 12/29/16 07:58 INR 1.0 12/29/16 07:58 APTT 32 SECONDS (21-34) 12/29/16 07:58 - Constitutional Appears: No Acute Distress, Chronically Ill - Head Exam Head Exam: ATRAUMATIC, NORMAL INSPECTION - Eye Exam Eye Exam: EOMI, Normal appearance - Neck Exam Neck Exam: Normal Inspection. absent: Tenderness - Respiratory Exam Respiratory Exam: Clear to Ausculation Bilateral, NORMAL BREATHING PATTERN - Cardiovascular Exam Cardiovascular Exam: REGULAR RHYTHM, +S1 - GI/Abdominal Exam GI & Abdominal Exam: Soft. absent: Tenderness - Extremities Exam Extremities Exam: Normal Inspection. absent: Tenderness - Neurological Exam Neurological Exam: Alert, CN II-XII Intact - Skin Skin Exam: Dry, Warm Assessment and Plan (1) Anemia Status: Acute (2) Dialysis AV fistula malfunction Status: Acute (3) ESRD (end stage renal disease) on dialysis Status: Acute (4) Essential hypertension Status: Acute - Assessment and Plan (Free Text) Plan: Stable dialysis course AV fistula patent Likely discharge soon Outpt dialysis arranged
[2016-12-30 16:59] VITALS: TEMP 97.8
[2016-12-30 18:51] VITALS: BP 187/89; PULSE 93; RESP 20; O2SAT 95
--- NOTE | 2016-12-30 21:42 | CP.PCM.DIS ---
<Donavon Melgoza R - Last Filed: 12/30/16 21:38> Provider - Provider Date of Admission: 12/23/16 20:54 Attending physician: Jered Moses MD Primary care physician: PMD: Dr Lara Consults: Nephrology: Dr Alegre Vaculapaige Surg: Dr Altman IR: Dr Benton Pulmonolgy: Dr Blackburn Time Spent in preparation of Discharge (in minutes): 45 Hospital Course - Lab Results Lab Results: Most Recent Lab Values WBC 3.4 K/uL (4.8-10.8) L 12/29/16 04:31 RBC 3.84 Mil/uL (4.40-5.90) L 12/29/16 04:31 Hgb 11.6 g/dL (12.0-18.0) L 12/29/16 04:31 Hct 35.3 % (35.0-51.0) 12/29/16 04:31 MCV 91.9 fL (80.0-94.0) D 12/29/16 04:31 MCH 30.2 pg (27.0-31.0) 12/29/16 04:31 MCHC 32.9 g/dL (33.0-37.0) L 12/29/16 04:31 RDW 16.9 % (11.5-14.5) H 12/29/16 04:31 Plt Count 65 K/uL (130-400) L 12/29/16 04:31 MPV 9.5 fL (7.2-11.7) 12/29/16 04:31 Neut % (Auto) 65.1 % (50.0-75.0) 12/29/16 04:31 Lymph % (Auto) 16.0 % (20.0-40.0) L 12/29/16 04:31 Geary % (Auto) 11.4 % (0.0-10.0) H 12/29/16 04:31 Eos % (Auto) 6.9 % (0.0-4.0) H 12/29/16 04:31 Baso % (Auto) 0.6 % (0.0-2.0) 12/29/16 04:31 Neut # 2.2 K/uL (1.8-7.0) 12/29/16 04:31 Lymph # 0.5 K/uL (1.0-4.3) L 12/29/16 04:31 Geary # 0.4 K/uL (0.0-0.8) 12/29/16 04:31 Eos # 0.2 K/uL (0.0-0.7) 12/29/16 04:31 Baso # 0.0 K/uL (0.0-0.2) 12/29/16 04:31 PT 11.5 SECONDS (9.7-12.2) 12/29/16 07:58 INR 1.0 12/29/16 07:58 APTT 32 SECONDS (21-34) 12/29/16 07:58 D-Dimer, Quantitative 628 ng/mlDDU (0-243) H 12/23/16 19:34 Sodium 137 mmol/L (132-148) 12/29/16 04:31 Potassium 4.2 mmol/L (3.6-5.2) 12/29/16 04:31 Chloride 95 mmol/L (98-107) L 12/29/16 04:31 Carbon Dioxide 27 mmol/L (22-30) 12/29/16 04:31 Anion Gap 19 (10-20) 12/29/16 04:31 BUN 58 mg/dL (9-20) H 12/29/16 04:31 Creatinine 8.1 MG/DL (0.8-1.5) H* D 12/29/16 04:31 Est GFR ( Amer) 8 12/29/16 04:31 Est GFR (Non-Af Amer) 7 12/29/16 04:31 POC Glucose (mg/dL) 93 mg/dL (65-110) 12/29/16 12:27 Random Glucose 94 mg/dL (75-110) 12/29/16 04:31 Calcium 8.6 mg/dl (8.6-10.4) 12/29/16 04:31 Phosphorus 7.8 mg/dL (2.5-4.5) H 12/26/16 07:01 Magnesium 2.9 mg/dL (1.6-2.3) H 12/26/16 07:01 Total Bilirubin 0.6 mg/dL (0.2-1.3) 12/29/16 04:31 AST 22 U/L (17-59) 12/29/16 04:31 ALT 24 U/L (21-72) 12/29/16 04:31 Alkaline Phosphatase 58 U/L (38-126) 12/29/16 04:31 NT-Pro-B Natriuret Pep 7500 pg/mL (0-900) H 12/23/16 19:34 Total Protein 6.2 g/dL (6.3-8.3) L 12/29/16 04:31 Albumin 3.6 g/dL (3.5-5.0) 12/29/16 04:31 Globulin 2.6 gm/dL (2.2-3.9) 12/29/16 04:31 Albumin/Globulin Ratio 1.4 (1.0-2.1) 12/29/16 04:31 Hep Bs Antigen Negative (NEGATIVE) 12/27/16 10:47 Blood Type AB POSITIVE 12/29/16 07:58 Antibody Screen Negative 12/29/16 07:58 - Hospital Course Hospital Course: CC: Nonfunctioning right AV shunt HPI: Patient is a 61 year old male with past medical history of ESRD, HTN, asthma, anemia, lymphoma, nephroliathiasis, who presents to the ED due to noted nonfunctioning right arm AV shunt during dialysis session. Patient reports that he missed his dialysis session on Monday. Patient reports that he has gained 7lbs this week. Patient admits to dyspnea that started earlier today but denies fever, chills, chest pain, nausea, vomiting, abdominal pain, palpitations and dizziness. PMD: Dr. Shashank Lara. Sound Engineering Technician : Dr. Shultz PMhx: ESRD, HTN, anemia, asthma, nephroliathiasis, lymphoma PSHx: Right arm A-V shunt placement (2014), removal of kidney stones FHx: Hypertension Medications: Aspirin 81mg PO daily, Vit D3 400units PO daily, Ferrous sulfate 325mg PO daily, fluticasone/salmeterol 250/50 1 puff INH q12h, Folic acid/VitB 0.8mg PO daily, Lopressor 50mg PO BID, Flomax 0.4mg PO daily, Spiriva 18mcg INH prn, spiriva 1 puff INH Q24H Allergies: NKDA Social history: former smoker of 27 years (3PPD). Denies alcohol and illicit drug use. Hospital Course: Patient presented to the ED on 12/23/16 for SOB and non-functioning AV shunt during dialysis. Patient was admitted to Internal Medicine on 12/23/16 for nonfunctional right AV shunt. Dr. Altman of General Surgery was consulted, and the patient was scheduled for surgery the following day for a perm cath placement. Patient was also treated for chronic conditions as follows: ESRD: Dialysis scheduled for 12/24/16 after perm cath placement Anemia: Ferrous sulfate HTN: lopressor BPH: flomax COPD: Spirivia, duonebs On 12/24/16 patient had a perm cath placement procedure. On 12/26/16 patient had an intravascular stent placement and a right arm AV graft thrombectomy. On 12/28/[address] with contrast of the chest to assess for central vein occlusion which found "patent left brachial, axillary, subclavian, brachiocephalic veins as well as superior vena cava identified. Masslike mediastinal/pleural densities are again seen increased in size at the anterior mediastinum and right lateral mediastinal base suspicious for infection, inflammatory or neoplastic etiology. Further clinical correlation is advised her confirmed possible nuclear PET scan for additional characterizationor even tissue diagnosis. Right upper and middle lobe fibrotic/granulomatous changes. Cholelithiasis and incidentally noted as well as prominent splenic artery calcifications." On 12/29/16 intraoperative fluoroscopy was used for AV shunt manipulation (left forearm loop hybrid AV shunt with cephalic arch balloon dilation). On 12/30/[address] Marco Blackburn was consulted regarding the abnormal chest CAT scan results. Recommendation was PET scan first then CT-guided biopsy , per the PMHx of non-Hodgkin's Lymphoma, as well as a followup with Dr. Brantley. Patient was discharged after clearance from Nephro, Dr Alegre, and Vascular. He will continue HD outpatient from femoral cath until left arm shunt heals. Discharge Exam - Head Exam Head Exam: ATRAUMATIC, NORMAL INSPECTION - Eye Exam Eye Exam: Normal appearance - ENT Exam ENT Exam: Mucous Membranes Moist - Neck Exam Neck exam: Full Rom - Respiratory Exam Respiratory Exam: Clear to PA & Lateral, NORMAL BREATHING PATTERN. absent: Wheezes - Cardiovascular Exam Cardiovascular Exam: REGULAR RHYTHM, RRR, +S1, +S2 - GI/Abdominal Exam GI & Abdominal Exam: Normal Bowel Sounds - Rectal Exam Rectal Exam: Deferred - Extremities Exam Extremities exam: calf tenderness Additional comments: left arm av shunt covered in gauze which was c/d/i - Neurological Exam Neurological exam: Alert - Psychiatric Exam Psychiatric exam: Normal Affect, Normal Mood - Skin Skin Exam: Dry, Intact, Normal Color, Warm Discharge Plan - Discharge Medications Prescriptions: amLODIPine [Norvasc] 5 mg PO DAILY #30 tab cloNIDine [Catapres] 0.1 mg PO BID #30 tab - Follow Up Plan Condition: STABLE Disposition: HOME/ ROUTINE Instructions: Clonidine (By mouth), Amlodipine (By mouth), Dialysis Diet (DC) Additional Instructions: Patient is medically stable for discharge. Patient is to continue his normal home medications. Please take the new medications as instructed: Amlodipine [norvasc] 5mg 1 tab by mouth once a day Clonidine 0.1mg 1 tab by mouth once in the morning and once in the evening Please follow up with Dr Altman in his office in 1 week. In addition, there was an increase in size of a mediastinal/pleural-based mass found on a CT during this hospital stay. Dr Brantley, Oncologist, has been made aware and would like you to follow up with him in his office for a PET scan. Please be well and take care. Referrals: Gold Brantley MD [Staff Provider] - Anselmo Altman Jr., MD [Staff Provider] - <Paul Edwards M - Last Filed: 12/31/16 15:56> Provider - Provider Date of Admission: 12/23/16 20:54 Attending physician: Jered Moses MD Hospital Course - Lab Results Lab Results: Most Recent Lab Values WBC 3.4 K/uL (4.8-10.8) L 12/29/16 04:31 RBC 3.84 Mil/uL (4.40-5.90) L 12/29/16 04:31 Hgb 11.6 g/dL (12.0-18.0) L 12/29/16 04:31 Hct 35.3 % (35.0-51.0) 12/29/16 04:31 MCV 91.9 fL (80.0-94.0) D 12/29/16 04:31 MCH 30.2 pg (27.0-31.0) 12/29/16 04:31 MCHC 32.9 g/dL (33.0-37.0) L 12/29/16 04:31 RDW 16.9 % (11.5-14.5) H 12/29/16 04:31 Plt Count 65 K/uL (130-400) L 12/29/16 04:31 MPV 9.5 fL (7.2-11.7) 12/29/16 04:31 Neut % (Auto) 65.1 % (50.0-75.0) 12/29/16 04:31 Lymph % (Auto) 16.0 % (20.0-40.0) L 12/29/16 04:31 Geary % (Auto) 11.4 % (0.0-10.0) H 12/29/16 04:31 Eos % (Auto) 6.9 % (0.0-4.0) H 12/29/16 04:31 Baso % (Auto) 0.6 % (0.0-2.0) 12/29/16 04:31 Neut # 2.2 K/uL (1.8-7.0) 12/29/16 04:31 Lymph # 0.5 K/uL (1.0-4.3) L 12/29/16 04:31 Geary # 0.4 K/uL (0.0-0.8) 12/29/16 04:31 Eos # 0.2 K/uL (0.0-0.7) 12/29/16 04:31 Baso # 0.0 K/uL (0.0-0.2) 12/29/16 04:31 PT 11.5 SECONDS (9.7-12.2) 12/29/16 07:58 INR 1.0 12/29/16 07:58 APTT 32 SECONDS (21-34) 12/29/16 07:58 D-Dimer, Quantitative 628 ng/mlDDU (0-243) H 12/23/16 19:34 Sodium 137 mmol/L (132-148) 12/29/16 04:31 Potassium 4.2 mmol/L (3.6-5.2) 12/29/16 04:31 Chloride 95 mmol/L (98-107) L 12/29/16 04:31 Carbon Dioxide 27 mmol/L (22-30) 12/29/16 04:31 Anion Gap 19 (10-20) 12/29/16 04:31 BUN 58 mg/dL (9-20) H 12/29/16 04:31 Creatinine 8.1 MG/DL (0.8-1.5) H* D 12/29/16 04:31 Est GFR ( Amer) 8 12/29/16 04:31 Est GFR (Non-Af Amer) 7 12/29/16 04:31 POC Glucose (mg/dL) 93 mg/dL (65-110) 12/29/16 12:27 Random Glucose 94 mg/dL (75-110) 12/29/16 04:31 Calcium 8.6 mg/dl (8.6-10.4) 12/29/16 04:31 Phosphorus 7.8 mg/dL (2.5-4.5) H 12/26/16 07:01 Magnesium 2.9 mg/dL (1.6-2.3) H 12/26/16 07:01 Total Bilirubin 0.6 mg/dL (0.2-1.3) 12/29/16 04:31 AST 22 U/L (17-59) 12/29/16 04:31 ALT 24 U/L (21-72) 12/29/16 04:31 Alkaline Phosphatase 58 U/L (38-126) 12/29/16 04:31 NT-Pro-B Natriuret Pep 7500 pg/mL (0-900) H 12/23/16 19:34 Total Protein 6.2 g/dL (6.3-8.3) L 12/29/16 04:31 Albumin 3.6 g/dL (3.5-5.0) 12/29/16 04:31 Globulin 2.6 gm/dL (2.2-3.9) 12/29/16 04:31 Albumin/Globulin Ratio 1.4 (1.0-2.1) 12/29/16 04:31 Hep Bs Antigen Negative (NEGATIVE) 12/27/16 10:47 Blood Type AB POSITIVE 12/29/16 07:58 Antibody Screen Negative 12/29/16 07:58 Attending/Attestation - Attestation I have personally seen and examined this patient.: Yes I have fully participated in the care of the patient.: Yes I have reviewed all pertinent clinical information, including history, physical exam and plan: Yes Notes (Text): 12/31/16 15:55 Patient seen and examined at bedside with the resident He is status post AV fistula placement We will continue hemodialysis from the femoral catheter for now and patient is clear for discharge both by vascular surgery and by nephrology We will discharge patient home. I didn't agree with the discharge note by the resident.
== END 2016-12-30 18:50 | disposition home or self-care (01) | DRG 819 ==
LOC: C.ER 18:46 → C.9E 20:54 → C.5T 22:06 → C.3T 12-28 06:09
PROVIDERS: ADMIT Internal Medicine; ATTEND Internal Medicine
PROC: B5181ZA Fluoroscopy of Superior Vena Cava using Low Osmolar Contrast, Guidance (ICD-10-PCS; 2016-12-24)
PROC: 02HV33Z Insertion of Infusion Device into Superior Vena Cava, Percutaneous Approach (ICD-10-PCS; 2016-12-24)
PROC: 5A1D60Z (ICD-10-PCS; 2016-12-28)
PROC: 05753DZ Dilation of Right Subclavian Vein with Intraluminal Device, Percutaneous Approach (ICD-10-PCS; 2016-12-29)
PROC: 05CY3ZZ Extirpation of Matter from Upper Vein, Percutaneous Approach (ICD-10-PCS; 2016-12-29)
PROC: 05773ZZ Dilation of Right Axillary Vein, Percutaneous Approach (ICD-10-PCS; 2016-12-29)
PROC: B51W1ZZ Fluoroscopy of Dialysis Shunt/Fistula using Low Osmolar Contrast (ICD-10-PCS; 2016-12-29)
PROC: 03160JD Bypass Left Axillary Artery to Upper Arm Vein with Synthetic Substitute, Open Approach (ICD-10-PCS; principal; 2016-12-29 10:08)
DX: T82.868A Thrombosis due to vascular prosthetic devices, implants and grafts, initial encounter (principal); N18.6 End stage renal disease; T82.856A Stenosis of peripheral vascular stent, initial encounter; T82.510A Breakdown (mechanical) of surgically created arteriovenous fistula, initial encounter; D69.6 Thrombocytopenia, unspecified; I12.0 Hypertensive chronic kidney disease with stage 5 chronic kidney disease or end stage renal disease; J44.9 Chronic obstructive pulmonary disease, unspecified; E83.39 Other disorders of phosphorus metabolism; Y71.2 Prosthetic and other implants, materials and accessory cardiovascular devices associated with adverse incidents; D64.9 Anemia, unspecified; K80.20 Calculus of gallbladder without cholecystitis without obstruction; E78.00 Pure hypercholesterolemia, unspecified; N40.0 Benign prostatic hyperplasia without lower urinary tract symptoms; E78.5 Hyperlipidemia, unspecified; I48.91 Unspecified atrial fibrillation; I87.1 Compression of vein; Z99.2 Dependence on renal dialysis; Y83.2 Surgical operation with anastomosis, bypass or graft as the cause of abnormal reaction of the patient, or of later complication, without mention of misadventure at the time of the procedure; Z87.442 Personal history of urinary calculi; Z85.72 Personal history of non-Hodgkin lymphomas; Z82.49 Family history of ischemic heart disease and other diseases of the circulatory system; Z92.21 Personal history of antineoplastic chemotherapy; Z87.891 Personal history of nicotine dependence

== ENCOUNTER 2017-01-14 14:57 | Emergency (ER) | payer MEDICAID ==
[2017-01-14 14:57] VITALS: PULSE 140; BMI 26.8
[2017-01-14 15:28] VITALS: O2SAT 97
[2017-01-14 16:13] LABS: BASO % 0.8 % (0.0-2.0); EOS # 0.2 K/uL (0.0-0.7); EOS % 6.7 % (0.0-4.0); HEMOGLOBIN 9.8 g/dL (12.0-18.0); LYMPH # 0.5 K/uL (1.0-4.3); LYMPH % 17.5 % (20.0-40.0); MEAN CORPUSCULAR HEMOGLOBIN 30.5 pg (27.0-31.0); MEAN CORPUSCULAR HGB CONC 32.3 g/dL (33.0-37.0); MEAN PLATELET VOLUME 11.1 fL (7.2-11.7); MONO # 0.2 K/uL (0.0-0.8); MONO % 8.8 % (0.0-10.0); NEUT # 1.9 K/uL (1.8-7.0); NEUT % 66.2 % (50.0-75.0); NRBC % 0.2 % (0.0-2.0); RBC 3.23 Mil/uL (4.40-5.90); RED CELL DISTRIBUTION WIDTH 17.6 % (11.5-14.5); WHITE BLOOD COUNT 2.8 K/uL (4.8-10.8)
[2017-01-14 16:19] LABS: ALBUMIN 3.6 g/dL (3.5-5.0); MEAN CELL VOLUME 94.3 fL (80.0-94.0)
[2017-01-14 16:22] LABS: ALB/GLOB RATIO 1.5 (1.0-2.1)
[2017-01-14 16:23] LABS: CALCIUM 9.3 mg/dl (8.6-10.4)
[2017-01-14 16:34] LABS: TROPONIN I 0.026 ng/mL (0.00-0.120)
--- NOTE | 2017-01-14 17:02 | RAD ---
PROCEDURE: CHEST RADIOGRAPH, 1 VIEW HISTORY: chest pain COMPARISON: 12/23/2016 FINDINGS: LUNGS: Diffuse increased interstitial lung markings suggestive for infiltrate and or edema. Nodular consolidation and or densities seen in the lateral aspect of the right mid lung zone. Patchy bibasilar airspace opacities. Biapical pleural thickening with upper lobe granulomatous changes. PLEURA: No pneumothorax or pleural fluid seen. CARDIOVASCULAR: Mild cardiomegaly. Right axillary stent in place. OSSEOUS STRUCTURES: Degenerative changes in the spine and shoulders. Productive change at the coracoclavicular interval on the left. VISUALIZED UPPER ABDOMEN: Normal. OTHER FINDINGS: None. IMPRESSION: Diffuse increased interstitial lung markings suggestive for infiltrate and or edema. Nodular consolidation and or densities seen in the lateral aspect of the right mid lung zone. Patchy bibasilar airspace opacities. Biapical pleural thickening with upper lobe granulomatous changes.
[2017-01-14] MEDS ORDERED: Sod Polystyrene Sulf 15 gm/60 ml Oral Susp PO ONE (17:24)
[2017-01-14] MEDS ORDERED: Sod Polystyrene Sulf 15 gm/60 ml Oral Susp ONE (17:36)
[2017-01-14 17:39] VITALS: BP 171/79; PULSE 73; RESP 18
--- NOTE | 2017-01-14 18:12 | C.PDOC ---
History Of Present Illness 61 yr old male presents to the ER stating yesterday while at dialysis (M/W/F), half hour into it he was told his shiley was clotted and was told to go to the access center but it was closed. Patient denies fever, chest pain, SOB, abdominal pain, weakness or numbness. Time Seen by Provider: 01/14/17 15:50 Chief Complaint (Nursing): Chest Pain History Per: Patient History/Exam Limitations: no limitations Onset/Duration Of Symptoms: Days (1) Current Symptoms Are (Timing): Still Present Past Medical History Reviewed: Historical Data, Nursing Documentation, Vital Signs Vital Signs: Last Vital Signs Temp Pulse 73 01/14/17 17:39 Resp 18 01/14/17 17:39 BP 171/79 H 01/14/17 17:39 Pulse Ox 97 01/14/17 18:17 - Medical History PMH: Anemia, Atrial Fibrillation, COPD, HTN, Hypercholesterolemia, Hyperlipidemia, End Stage Renal Disease, Chronic Kidney Disease Surgical History: Endoscopy - [facility] Procedures BYPASS L AXILLA ART TO UP ARM VEIN W SYNTH SUB, OPEN (12/23/16) DIALYSIS ARTERIOVENOSTOM (01/22/15) DILATION OF R SUBCLAV VEIN WITH INTRALUM DEV, PERC APPROACH (12/23/16) DILATION OF RIGHT AXILLARY VEIN, PERCUTANEOUS APPROACH (12/23/16) DILATION OF RIGHT BASILIC VEIN, PERCUTANEOUS APPROACH (09/09/16) EXTIRPATION OF MATTER FROM UPPER VEIN, PERCUTANEOUS APPROACH (12/23/16) FLUOROSCOPY OF DIALYSIS SHUNT/FISTULA USING L OSM CONTRAST (12/23/16) FLUOROSCOPY OF SUP VENA CAVA USING L OSM CONTRAST, GUIDANCE (12/23/16) FLUOROSCOPY OF SUPERIOR VENA CAVA (09/09/16) HEMODIALYSIS (01/30/15) INSERTION OF INFUSION DEV INTO SUP VENA CAVA, PERC APPROACH (12/23/16) PACKED CELL TRANSFUSION (11/05/14) PERFORMANCE OF URINARY FILTRATION, MULTIPLE (12/23/16) PERFORMANCE OF URINARY FILTRATION, SINGLE (02/29/16) TRANSFUSE NONAUT PLATELETS IN PERIPH VEIN, PERC (09/09/16) ULTRASONOGRAPHY OF SUPERIOR VENA CAVA, GUIDANCE (09/09/16) VENOUS CATHETERIZATION FOR RENAL DIALYSIS (11/05/14) Family History: States: No Known Family Hx - Social History Hx Tobacco Use: No (Quit years ago) Hx Alcohol Use: No Hx Substance Use: No - Immunization History Hx Tetanus Toxoid Vaccination: Yes Hx Influenza Vaccination: Yes Hx Pneumococcal Vaccination: Yes Review Of Systems Except As Marked, All Systems Reviewed And Found Negative. Constitutional: Negative for: Fever Cardiovascular: Negative for: Chest Pain Respiratory: Negative for: Shortness of Breath Gastrointestinal: Negative for: Abdominal Pain Neurological: Negative for: Weakness, Numbness Physical Exam - Physical Exam Appears: Non-toxic, No Acute Distress Skin: Warm, Dry, No Rash Head: Atraumatic, Normacephalic Oral Mucosa: Moist Chest: Symmetrical, No Tenderness Cardiovascular: Rhythm Regular, No Murmur Respiratory: Normal Breath Sounds, No Rales, No Rhonchi, No Stridor, No Wheezing Male Genital: Other (Right Groin - Shiley. No erythema. No infections. ) Extremity: Normal ROM, Other (Left Upper Extremity - Surgical staple in place. No signs of infections. ) Neurological/Psych: Oriented x3, Normal Speech, Normal Motor ED Course And Treatment - Laboratory Results Result Diagrams: 01/14/17 16:04 01/14/17 16:04 ECG: Interpreted By Me, Viewed By Me ECG Rhythm: Sinus Rhythm ECG Interpretation: Normal Interpretation Of ECG: Left axis deviation. No peaked T waves. Rate From EC (BPM) O2 Sat by Pulse Oximetry: 97 (RA) Pulse Ox Interpretation: Normal Progress Note: Spoke to Dr. Claudio who is covering for Dr. Alegre, reviewed the case and recommended to give one dose of Sulfonate and discharge the patient and have him follow up on Monday at the access center. Medical Decision Making Medical Decision Making: PLAN: * CXR * EKG * Troponin * CBC * CMP * Sodium Polystyrene Sulfonate PO Disposition - Disposition Referrals: Christiano Alegre MD [Staff Provider] - Disposition: HOME/ ROUTINE Disposition Time: 16:40 Condition: GOOD Additional Instructions: Thank you for letting us take care of you today. Your provider was Dr. Montes. The emergency medical care you received today was directed at your acute symptoms. If you were prescribed any medication, please fill it and take as directed. It may take several days for your symptoms to resolve. Return to the Emergency Department if your symptoms worsen, do not improve, or if you have any other problems. Please contact your doctor or call one of the physicians/clinics you have been referred to that are listed on the Patient Visit Information form that is included in your discharge packet. Bring any paperwork you were given at discharge with you along with any medications you are taking to your follow up visit. Our treatment cannot replace ongoing medical care by a primary care provider (PCP) outside of the emergency department. Thank you for allowing the [facility] team to be part of your care today. Follow up with the access center and your dialysis center in 2 days. Return to the emergency room if you have any concerns. Instructions: Dialysis Diet (DC), End Stage Kidney Disease (ED) Forms: Handseeing Information (Maltese) - Clinical Impression Clinical Impression: End-stage renal disease - Scribe Statement The provider has reviewed the documentation as recorded by the Apibjoe Sawyer Provider Attestation: All medical record entries made by the Apibjoe were at my direction and personally dictated by me. I have reviewed the chart and agree that the record accurately reflects my personal performance of the history, physical exam, medical decision making, and the department course for this patient. I have also personally directed, reviewed, and agree with the discharge instructions and disposition.
== END 2017-01-14 17:39 | disposition home or self-care (01) ==
LOC: C.ER 14:57
DX: N18.6 End stage renal disease (principal); I12.0 Hypertensive chronic kidney disease with stage 5 chronic kidney disease or end stage renal disease; Z99.2 Dependence on renal dialysis; J44.9 Chronic obstructive pulmonary disease, unspecified; I48.91 Unspecified atrial fibrillation; E78.00 Pure hypercholesterolemia, unspecified

== ENCOUNTER 2017-01-16 11:08 | Observation (INO) | payer MEDICAID ==
[2017-01-16 11:09] VITALS: PULSE 140; BMI 26.8
--- NOTE | 2017-01-16 12:19 | C.PDOC ---
History Of Present Illness Patient is a 61 year old male, whose past medical history includes HTN, end stage renal disease on hemodialysis Monday, Monday, Monday, presents to the Emergency Department for evaluation of clogged dialysis catheter to right groin. States that his dialysis is due today. Otherwise, denies any fever, chills, sensory changes, or any other associated symptoms at this time. Time Seen by Provider: 01/16/17 11:38 Chief Complaint (Nursing): Medical Clearance History Per: Patient History/Exam Limitations: no limitations Onset/Duration Of Symptoms: Days Current Symptoms Are (Timing): Still Present Recent travel outside of the [place]: No Additional History Per: Patient Past Medical History Reviewed: Historical Data, Nursing Documentation, Vital Signs Vital Signs: Last Vital Signs Temp 97.6 F 01/16/17 11:14 Pulse 84 01/16/17 11:14 Resp 20 01/16/17 11:14 BP 145/82 01/16/17 11:14 Pulse Ox 98 01/16/17 12:37 - Medical History PMH: Anemia, Atrial Fibrillation, COPD, HTN, Hypercholesterolemia, Hyperlipidemia, End Stage Renal Disease, Chronic Kidney Disease Surgical History: Endoscopy - [facility] Procedures BYPASS L AXILLA ART TO UP ARM VEIN W SYNTH SUB, OPEN (12/23/16) DIALYSIS ARTERIOVENOSTOM (01/22/15) DILATION OF R SUBCLAV VEIN WITH INTRALUM DEV, PERC APPROACH (12/23/16) DILATION OF RIGHT AXILLARY VEIN, PERCUTANEOUS APPROACH (12/23/16) DILATION OF RIGHT BASILIC VEIN, PERCUTANEOUS APPROACH (09/09/16) EXTIRPATION OF MATTER FROM UPPER VEIN, PERCUTANEOUS APPROACH (12/23/16) FLUOROSCOPY OF DIALYSIS SHUNT/FISTULA USING L OSM CONTRAST (12/23/16) FLUOROSCOPY OF SUP VENA CAVA USING L OSM CONTRAST, GUIDANCE (12/23/16) FLUOROSCOPY OF SUPERIOR VENA CAVA (09/09/16) HEMODIALYSIS (01/30/15) INSERTION OF INFUSION DEV INTO SUP VENA CAVA, PERC APPROACH (12/23/16) PACKED CELL TRANSFUSION (11/05/14) PERFORMANCE OF URINARY FILTRATION, MULTIPLE (12/23/16) PERFORMANCE OF URINARY FILTRATION, SINGLE (02/29/16) TRANSFUSE NONAUT PLATELETS IN PERIPH VEIN, PERC (09/09/16) ULTRASONOGRAPHY OF SUPERIOR VENA CAVA, GUIDANCE (09/09/16) VENOUS CATHETERIZATION FOR RENAL DIALYSIS (11/05/14) Family History: States: Unknown Family Hx - Social History Hx Tobacco Use: No (Quit years ago) Hx Alcohol Use: No Hx Substance Use: No - Immunization History Hx Tetanus Toxoid Vaccination: Yes Hx Influenza Vaccination: Yes Hx Pneumococcal Vaccination: Yes Review Of Systems Except As Marked, All Systems Reviewed And Found Negative. Constitutional: Negative for: Fever, Chills Cardiovascular: Negative for: Chest Pain, Palpitations Respiratory: Negative for: Cough, Shortness of Breath Gastrointestinal: Negative for: Nausea, Vomiting, Abdominal Pain Genitourinary: Negative for: Dysuria, Frequency, Hematuria Skin: Negative for: Rash, Bruising Neurological: Negative for: Headache, Dizziness Physical Exam - Physical Exam Appears: Non-toxic, No Acute Distress Skin: Warm, Dry, Other (immature graft to left forearm with intact isidoro and surrounding erythema, old shunt to right arm that is clogged, non-functional access line to right groin) Head: Atraumatic, Normacephalic Eye(s): bilateral: Normal Inspection Oral Mucosa: Moist Neck: Normal ROM, Supple Cardiovascular: Rhythm Regular, No Murmur Respiratory: Normal Breath Sounds, No Rales, No Rhonchi, No Wheezing Gastrointestinal/Abdominal: Soft, No Tenderness Extremity: Normal ROM Neurological/Psych: Oriented x3, Normal Speech, Normal Cognition ED Course And Treatment O2 Sat by Pulse Oximetry: 98 (RA) Pulse Ox Interpretation: Normal Disposition Discussed With DrGil: Shabana Alcantara Doctor Will See Patient In The: Hospital Counseled Patient/Family Regarding: Studies Performed, Diagnosis - Disposition Disposition: HOSPITALIZED Disposition Time: 13:41 Condition: STABLE Forms: [email or web address] (Upper Sorbian) - Clinical Impression Clinical Impression: ESRD needing dialysis, Shunt malfunction - Scribe Statement The provider has reviewed the documentation as recorded by the Scribe Sera Hawkins All medical record entries made by the Apibe were at my direction and personally dictated by me. I have reviewed the chart and agree that the record accurately reflects my personal performance of the history, physical exam, medical decision making, and the department course for this patient. I have also personally directed, reviewed, and agree with the discharge instructions and disposition. Decision To Admit - Pt Status Changed To: Hospital Disposition Of: Observation - . Bed Request Type: Regular Patient Diagnosis: ESRD needing dialysis, Shunt malfunction
[2017-01-16 13:40] LABS: BASO % 1.4 % (0.0-2.0); EOS # 0.2 K/uL (0.0-0.7); EOS % 6.8 % (0.0-4.0); HEMOGLOBIN 9.2 g/dL (12.0-18.0); LYMPH # 0.4 K/uL (1.0-4.3); LYMPH % 15.8 % (20.0-40.0); MEAN CELL VOLUME 94.5 fL (80.0-94.0); MEAN CORPUSCULAR HEMOGLOBIN 30.6 pg (27.0-31.0); MEAN CORPUSCULAR HGB CONC 32.3 g/dL (33.0-37.0); MONO # 0.3 K/uL (0.0-0.8); MONO % 9.4 % (0.0-10.0); NEUT # 1.9 K/uL (1.8-7.0); NEUT % 66.6 % (50.0-75.0); NRBC % 0.2 % (0.0-2.0); RBC 3.01 Mil/uL (4.40-5.90); RED CELL DISTRIBUTION WIDTH 17.6 % (11.5-14.5); WHITE BLOOD COUNT 2.8 K/uL (4.8-10.8)
[2017-01-16 13:47] LABS: ALBUMIN 3.4 g/dL (3.5-5.0)
[2017-01-16 13:50] LABS: INR 1.1
[2017-01-16 13:51] LABS: ALB/GLOB RATIO 1.4 (1.0-2.1); CALCIUM 8.9 mg/dl (8.6-10.4)
--- NOTE | 2017-01-16 14:44 | RAD ---
PROCEDURE: CHEST RADIOGRAPH, 1 VIEW HISTORY: SOB COMPARISON: 01/14/2017. FINDINGS: LUNGS: Stable right lower lobe infiltrate. Subcentimeter calcified granuloma right upper lobe PLEURA: No pneumothorax or pleural fluid seen. CARDIOVASCULAR: No radiographic findings to suggest acute or significant cardiovascular disease. OSSEOUS STRUCTURES: No significant abnormalities. VISUALIZED UPPER ABDOMEN: Normal. OTHER FINDINGS: None. IMPRESSION: No significant interval change compared to the prior examination(s).
--- NOTE | 2017-01-16 15:20 | RAD ---
PROCEDURE: Right Hip X-ray Radiographs. HISTORY: Catheter tip placement COMPARISON: None available. FINDINGS: Catheter projecting over the right lower extremity and abdomen; distal tip is inadequately assessed on the submitted view ; recommend repeat study centered upon the mid to lower abdomen. BONES: No acute displaced fracture. Numerous prominent calcifications adjacent to the greater trochanter as well as within the right lower extremity soft tissues. JOINTS: No dislocation. Marked degenerative changes including bilateral joint space narrowing. SOFT TISSUES: Unremarkable. OTHER FINDINGS: None. IMPRESSION: Catheter projecting over the right lower extremity and abdomen; distal tip is inadequately assessed on the submitted view, possibly terminating to the right of the L4 level ; recommend repeat study centered upon the mid to lower abdomen. Degenerative changes.
--- NOTE | 2017-01-16 16:28 | CP.PCM.CON ---
History of Present Illness - History of Present Illness History of Present Illness: Vascular surgery Dr. Altman 61M w/PMH sig for ESRD on HD presented to the ED due to non-functioning Right Femoral temporary dialysis catheter. Pt reports he went to dialysis on Monday dialysis could not be completed. When pt went to dialysis earlier, it was not functioning/clotted. Denies N/V/F/C, CP, palpitations, recent illness. Pt is suppose to f/u with Dr. Altman tomorrow as part of his two week f/u PMH: ESRD on HD, anemia, HTN, asthma, nephrolithiasias, HLD PSH: Kidney stone removal, RUE [place]-Manjinder Hybrid AV Shunt (2015), Left forearm loop hybrid AV shunt All: Denies SH: Former tobacco use (20 yrs prior), denies ETOH or illicit drug use Review of Systems - Review of Systems All systems: reviewed and no additional remarkable complaints except Past Patient History - Infectious Disease Hx of Infectious Diseases: None - Past Medical History & Family History Past Medical History?: Yes - Past Social History Smoking Status: Former Smoker - CARDIAC Hx Atrial Fibrillation: Yes Hx Hypercholesterolemia: Yes Hx Hypertension: Yes - PULMONARY Hx Chronic Obstructive Pulmonary Disease (COPD): Yes - RENAL Hx Chronic Kidney Disease: Yes - HEMATOLOGICAL/ONCOLOGICAL Hx Anemia: Yes - INTEGUMENTARY Hx Dermatological Problems: Yes Other/Comment: small plastic tube above shunt right arm - MUSCULOSKELETAL/RHEUMATOLOGICAL Hx Musculoskeletal Disorders: Yes Other/Comment: knee problems - GASTROINTESTINAL Hx Gastrointestinal Disorders: Yes Other/Comment: chronic constipation - GENITOURINARY/GYNECOLOGICAL Hx Genitourinary Disorders: Yes Hx Prostate Cancer: Yes Hx Prostate Problems: Yes (hx of turp) - PSYCHIATRIC Hx Substance Use: No - SURGICAL HISTORY Hx Surgeries: Yes Other/Comment: Prostate sx - ANESTHESIA Hx Anesthesia: Yes Hx Anesthesia Reactions: No Hx Malignant Hyperthermia: No Meds Allergies/Adverse Reactions: Allergies Allergy/AdvReac Type Severity Reaction Status Date / Time No Known Allergies Allergy Verified 01/14/17 15:06 Physical Exam - Constitutional Appears: Well, No Acute Distress - Head Exam Head Exam: ATRAUMATIC - Eye Exam Eye Exam: EOMI - Respiratory Exam Respiratory Exam: NORMAL BREATHING PATTERN. absent: Accessory Muscle Use, Rhonchi, Wheezes - Cardiovascular Exam Cardiovascular Exam: +S1, +S2 - GI/Abdominal Exam GI & Abdominal Exam: Normal Bowel Sounds, Soft. absent: Guarding, Rebound, Rigid, Tenderness - Exam Additional comments: Right Femoral Temporary Dialysis catheter in place - Extremities Exam Extremities exam: Positive for: pedal pulses present - Neurological Exam Neurological exam: Alert, Oriented x3 - Psychiatric Exam Psychiatric exam: Normal Affect - Skin Skin Exam: Normal Color Results - Vital Signs Recent Vital Signs: Last Vital Signs Temp 97.6 F 01/16/17 11:14 Pulse 84 01/16/17 11:14 Resp 20 01/16/17 11:14 BP 145/82 01/16/17 11:14 Pulse Ox 98 01/16/17 13:43 - Labs Result Diagrams: 01/16/17 13:36 01/16/17 13:36 Assessment & Plan - Assessment and Plan (Free Text) Assessment: 61M hx ESRD w/ clotting of Right Femoral HD Catheter Plan: - flush 2mg of alteplase in each port * one hour f/u with HD center in hospital for Dialysis - Possible staple removal tomorrow from Left forearm loop hybrid AV shunt on - no acute surgical intervention at this time will D/W Dr. Agapito Marie PGY1
[2017-01-16] MEDS ORDERED: Fluticasone-Salmeterol 250-50mcg Diskus INH SCH (23:45)
[2017-01-17 04:31] VITALS: RESP 20
--- NOTE | 2017-01-17 07:57 | CP.PCM.PN ---
Subjective - Date & Time of Evaluation Date of Evaluation: 01/17/17 Time of Evaluation: 07:10 - Subjective Subjective: General Surgery Note Patient was seen and examined at bedside. Patient was resting comfortably in bed in no acute distress. Patient reports that he is doing well and has no new complaints. Patient denies nausea, vomiting, palpitations, chest pain, fever and chills. Objective - Vital Signs/Intake and Output Vital Signs (last 24 hours): Temp Pulse Resp BP Pulse Ox 97.6 F 70 20 161/81 H 96 01/16/17 23:30 01/16/17 23:30 01/16/17 23:30 01/16/17 23:30 01/16/17 23:30 Intake and Output: 01/17/17 01/17/17 06:59 18:59 Intake Total 240 Balance 240 - Medications Medications: Current Medications Aspirin (Aspirin Chewable) 81 mg PO DAILY [facility] Ergocalciferol (Drisdol 50,000 Intl Units Cap) 1 cap PO QWK [facility] Metoprolol Tartrate (Lopressor) 50 mg PO BID [facility] Fluticasone/Salmeterol (Advair Diskus 250/50) 1 puff INH RQ12 [facility] Last Admin: 01/17/17 07:27 Dose: 1 puff Tamsulosin HCl (Flomax) 0.4 mg PO DAILY [facility] Tiotropium [place] (Spiriva Inhalation Handihaler Device) 1 inhaler INH RQD [facility] Vitamin B Complex/Vit C/Folic Acid (Nephro-Anival) 1 tab PO DAILY [facility] - Labs Labs: PT 12.0 SECONDS (9.7-12.2) 01/16/17 13:36 INR 1.1 01/16/17 13:36 APTT 29 SECONDS (21-34) 01/16/17 13:36 - Constitutional Appears: Well, No Acute Distress - Head Exam Head Exam: ATRAUMATIC, NORMAL INSPECTION - Eye Exam Eye Exam: EOMI, Normal appearance - Respiratory Exam Respiratory Exam: Clear to Ausculation Bilateral, NORMAL BREATHING PATTERN - Cardiovascular Exam Cardiovascular Exam: REGULAR RHYTHM, +S1, +S2 - GI/Abdominal Exam GI & Abdominal Exam: Soft, Normal Bowel Sounds - Exam Additional comments: Right femoral temporary dialysis catheter in place - Extremities Exam Extremities Exam: absent: Pedal Edema, Tenderness - Neurological Exam Neurological Exam: Alert, Awake, Oriented x3 - Psychiatric Exam Psychiatric exam: Normal Affect, Normal Mood - Skin Skin Exam: Dry, Normal Color, Warm Assessment and Plan - Assessment and Plan (Free Text) Assessment: 61 year old male with a past medical history of ESRD w/ clotting of Right Femoral HD Catheter Plan: - Right femoral catheter was flushed with 2mg of alteplase in each port ( ) * (01/17/17) Patient had 3-hours hemodialysis an hour after the alteplase flush - Staple removal tomorrow from Left forearm loop hybrid AV shunt on 12/29/16 - No acute surgical intervention at this time - Patient is stable for D/C from surgical standpoint will D/W Dr. Altman
--- NOTE | 2017-01-17 08:10 | CARD ---
APPROVED REPORT EKG Measurement Heart [id number] <Conclusion> Normal sinus rhythm Minimal voltage criteria for LVH, may be normal variant Borderline ECG
[2017-01-17 08:54] VITALS: TEMP 97.8
[2017-01-17 09:07] LABS: ALBUMIN 3.4 g/dL (3.5-5.0); HEMOGLOBIN 9.8 g/dL (12.0-18.0); MEAN CELL VOLUME 92.8 fL (80.0-94.0); MEAN CORPUSCULAR HEMOGLOBIN 30.8 pg (27.0-31.0); MEAN CORPUSCULAR HGB CONC 33.2 g/dL (33.0-37.0); MEAN PLATELET VOLUME 10.9 fL (7.2-11.7); RBC 3.18 Mil/uL (4.40-5.90); WHITE BLOOD COUNT 2.7 K/uL (4.8-10.8)
[2017-01-17 09:10] LABS: ALB/GLOB RATIO 1.4 (1.0-2.1)
[2017-01-17 09:11] LABS: CALCIUM 8.6 mg/dl (8.6-10.4)
[2017-01-17] MEDS ORDERED: Multivitamin Vitamin B Complex (Nephro-Vite) Tab PO SCH (10:00)
[2017-01-17] MEDS ORDERED: Ergocalciferol 50,000 Intl Units Cap PO SCH (10:00)
--- NOTE | 2017-01-17 11:46 | CP.PCM.PN ---
Subjective - Date & Time of Evaluation Date of Evaluation: 01/17/17 Time of Evaluation: 09:00 - Subjective Subjective: PGY-2 Resident Progress Note for Dr. Alcantara Patient seen and examined at bedside. No acute events overnight. Patient reports to be doing great, no current complaints. Patient denies having headache , fever, chills, shortness of breath, chest pain, nausea, vomiting, or diarrhea. Objective - Vital Signs/Intake and Output Vital Signs (last 24 hours): Temp Pulse Resp BP Pulse Ox 97.8 F 68 20 161/81 H 99 01/17/17 08:00 01/17/17 08:00 01/17/17 08:00 01/16/17 23:30 01/17/17 08:00 Intake and Output: 01/17/17 01/17/17 06:59 18:59 Intake Total 240 Balance 240 - Medications Medications: Current Medications Aspirin (Aspirin Chewable) 81 mg PO DAILY [facility] Last Admin: 01/17/17 09:14 Dose: 81 mg Ergocalciferol (Drisdol 50,000 Intl Units Cap) 1 cap PO QWK [facility] Last Admin: 01/17/17 09:14 Dose: 1 cap Metoprolol Tartrate (Lopressor) 50 mg PO BID [facility] Last Admin: 01/17/17 09:14 Dose: 50 mg Fluticasone/Salmeterol (Advair Diskus 250/50) 1 puff INH RQ12 [facility] Last Admin: 01/17/17 07:27 Dose: 1 puff Tamsulosin HCl (Flomax) 0.4 mg PO DAILY [facility] Last Admin: 01/17/17 09:14 Dose: 0.4 mg Tiotropium [place] (Spiriva Inhalation Handihaler Device) 1 inhaler INH RQD [facility] Vitamin B Complex/Vit C/Folic Acid (Nephro-Anival) 1 tab PO DAILY [facility] Last Admin: 01/17/17 09:14 Dose: 1 tab - Labs Labs: 01/17/17 08:42 01/17/17 08:42 PT 12.0 SECONDS (9.7-12.2) 01/16/17 13:36 INR 1.1 01/16/17 13:36 APTT 29 SECONDS (21-34) 01/16/17 13:36 - Constitutional Appears: Well, Non-toxic, No Acute Distress - Head Exam Head Exam: ATRAUMATIC - Eye Exam Eye Exam: EOMI, Normal appearance - ENT Exam ENT Exam: Mucous Membranes Moist - Neck Exam Neck Exam: Normal Inspection - Respiratory Exam Respiratory Exam: Clear to Ausculation Bilateral, NORMAL BREATHING PATTERN. absent: Respiratory Distress - Cardiovascular Exam Cardiovascular Exam: REGULAR RHYTHM, +S1, +S2 - GI/Abdominal Exam GI & Abdominal Exam: Soft, Normal Bowel Sounds. absent: Tenderness Additional comments: Right femoral temporary dialysis catheter in place - Extremities Exam Extremities Exam: absent: Pedal Edema - Neurological Exam Neurological Exam: Alert, Awake, Oriented x3 - Psychiatric Exam Psychiatric exam: Normal Affect, Normal Mood - Skin Skin Exam: Dry, Intact, Normal Color, Warm Assessment and Plan - Assessment and Plan (Free Text) Assessment: Clogged Right femoral catheter -Vascular surgery consult, Dr. Kwan help appreciated -Flushed with 2mg of alteplase in each port -No surgical intervention indicated at this time -Patient resume his HD schedule on discharge -Left forearm loop hybrid AV shunt staple removed ESRD -Continue outpatient HD once discharged -[place]-Anival tablet HTN -Lopresor 50mg BID Asthma -Spiriva -Advair diskus Disposition: patient to be discharged home Discussed with attending Dr. Alcantara. All management per Dr. Alcantara.
[2017-01-17 14:05] VITALS: BP 160/70; PULSE 80; O2SAT 98
--- NOTE | 2017-01-17 21:57 | HP ---
HISTORY OF PRESENT ILLNESS: The patient is a 61-year-old male with chronic renal failure on hemodialysis admitted to the hospital with chief complaint of nonfunctioning dialysis catheter. The patient is nonsmoker. PHYSICAL EXAMINATION: GENERAL: The patient is awake, alert, oriented. VITAL SIGNS: Temperature 98, pulse 90. HEENT: Within normal limits. NECK: Supple. CHEST: Symmetrical. HEART: Regular. ABDOMEN: Soft. EXTREMITIES: No edema. IMPRESSION: The patient suffers from malfunctioning of dialysis catheter. The patient needs vascular surgery consult, supportive care. Shabana Alcantara MD
== END 2017-01-17 14:49 | disposition home or self-care (01) ==
LOC: C.ER 11:08 → C.9E 13:43 → C.5T 15:43
PROVIDERS: ADMIT Internal Medicine Pulmonary Disease; ATTEND Internal Medicine Pulmonary Disease
DX: T82.898A Other specified complication of vascular prosthetic devices, implants and grafts, initial encounter (principal); E78.5 Hyperlipidemia, unspecified; I12.0 Hypertensive chronic kidney disease with stage 5 chronic kidney disease or end stage renal disease; I48.91 Unspecified atrial fibrillation; N18.6 End stage renal disease; Z87.891 Personal history of nicotine dependence
CPT/HCPCS: 36415; 71010; 73501; 80053; 85025; 85027; 85610; 85730; 93005; 94640; 99284; G0257; G0378; J2997

== ENCOUNTER 2017-02-25 11:11 | Inpatient (IN) | payer MEDICAID ==
[2017-02-25 11:12] VITALS: PULSE 140; BMI 30.9
[2017-02-25 13:22] LABS: BASO % 0.7 % (0.0-2.0); EOS # 0.2 K/uL (0.0-0.7); EOS % 5.7 % (0.0-4.0); HEMATOCRIT 31.1 % (35.0-51.0); LYMPH # 0.4 K/uL (1.0-4.3); LYMPH % 12.3 % (20.0-40.0); MEAN CELL VOLUME 92.3 fL (80.0-94.0); MEAN CORPUSCULAR HEMOGLOBIN 30.3 pg (27.0-31.0); MEAN CORPUSCULAR HGB CONC 32.8 g/dL (33.0-37.0); MEAN PLATELET VOLUME 9.8 fL (7.2-11.7); MONO # 0.3 K/uL (0.0-0.8); MONO % 10.3 % (0.0-10.0); WHITE BLOOD COUNT 3.2 K/uL (4.8-10.8)
[2017-02-25 13:51] LABS: ALB/GLOB RATIO 1.6 (1.0-2.1); BILIRUBIN,TOTAL 0.8 mg/dL (0.2-1.3); CALCIUM 9.2 mg/dl (8.6-10.4); POTASSIUM 4.2 mmol/L (3.6-5.2); TOTAL PROTEIN 6.1 g/dL (6.3-8.3)
--- NOTE | 2017-02-25 15:43 | C.PDOC ---
History Of Present Illness 61 year old male presents to the ED for evaluation of left arm swelling and pain to coccyx area for 10 days. Patient has a relatively new AV fistula placed by Dr. Altman for hemodialysis. He has received dialysis approximately 5-6 times with new fistula, last dialysis was yesterday. While in dialysis patient was told to have fistula evaluated due to resistance. Dialysis was able to be completed. Patient denies injury to coccyx, nausea, vomiting, or fever. Time Seen by Provider: 02/25/17 11:37 Chief Complaint (Nursing): Upper Extremity Problem/Injury History/Exam Limitations: no limitations Onset/Duration Of Symptoms: Days (10 days ) Current Symptoms Are (Timing): Still Present Associated Symptoms: None Recent travel outside of the [place]: No Past Medical History Reviewed: Historical Data, Nursing Documentation, Vital Signs Vital Signs: Last Vital Signs Temp 98.8 F 02/25/17 17:24 Pulse 73 02/25/17 17:24 Resp 18 02/25/17 11:17 BP 156/75 H 02/25/17 17:24 Pulse Ox 98 02/25/17 18:46 - Medical History PMH: Anemia, Atrial Fibrillation, COPD, HTN, Hypercholesterolemia, Hyperlipidemia, Kidney Stones, End Stage Renal Disease, Chronic Kidney Disease Surgical History: Endoscopy - [facility] Procedures BYPASS L AXILLA ART TO UP ARM VEIN W SYNTH SUB, OPEN (12/23/16) DIALYSIS ARTERIOVENOSTOM (01/22/15) DILATION OF R SUBCLAV VEIN WITH INTRALUM DEV, PERC APPROACH (12/23/16) DILATION OF RIGHT AXILLARY VEIN, PERCUTANEOUS APPROACH (12/23/16) DILATION OF RIGHT BASILIC VEIN, PERCUTANEOUS APPROACH (09/09/16) EXTIRPATION OF MATTER FROM UPPER VEIN, PERCUTANEOUS APPROACH (12/23/16) FLUOROSCOPY OF DIALYSIS SHUNT/FISTULA USING L OSM CONTRAST (12/23/16) FLUOROSCOPY OF SUP VENA CAVA USING L OSM CONTRAST, GUIDANCE (12/23/16) FLUOROSCOPY OF SUPERIOR VENA CAVA (09/09/16) HEMODIALYSIS (01/30/15) INSERTION OF INFUSION DEV INTO SUP VENA CAVA, PERC APPROACH (12/23/16) PACKED CELL TRANSFUSION (11/05/14) PERFORMANCE OF URINARY FILTRATION, MULTIPLE (12/23/16) PERFORMANCE OF URINARY FILTRATION, SINGLE (02/29/16) TRANSFUSE NONAUT PLATELETS IN PERIPH VEIN, PERC (09/09/16) ULTRASONOGRAPHY OF SUPERIOR VENA CAVA, GUIDANCE (09/09/16) VENOUS CATHETERIZATION FOR RENAL DIALYSIS (11/05/14) Family History: States: Unknown Family Hx - Social History Hx Tobacco Use: No (Quit years ago) Hx Alcohol Use: No Hx Substance Use: No - Immunization History Hx Tetanus Toxoid Vaccination: Yes Hx Influenza Vaccination: Yes Hx Pneumococcal Vaccination: Yes Review Of Systems Constitutional: Negative for: Fever, Chills Cardiovascular: Negative for: Chest Pain Respiratory: Negative for: Shortness of Breath Gastrointestinal: Negative for: Nausea, Vomiting, Abdominal Pain Musculoskeletal: Positive for: Arm Pain (left arm swelling and AV fistula evaluation ), Other (Coccyx pain ) Physical Exam - Physical Exam Appears: Non-toxic, No Acute Distress Skin: Warm, Dry, Other (thrill felt to left arm ) Head: Atraumatic, Normacephalic Eye(s): bilateral: Normal Inspection, PERRL, EOMI Oral Mucosa: Moist Neck: Supple Chest: Symmetrical, No Deformity Cardiovascular: Rhythm Regular, No Murmur Respiratory: Normal Breath Sounds, No Rales, No Rhonchi, No Wheezing Gastrointestinal/Abdominal: Soft, No Tenderness, No Distention, No Guarding, No Rebound Back: Other (Coccyx tenderness with no swelling, erythema, bruising, or abscesses present. ) Extremity: Normal ROM, No Tenderness, No Calf Tenderness, Capillary Refill ( good capillary refill, less than two seconds ), Swelling (left arm swelling with mild erythema, healing, and no draining surrounding AV fistula area ) Pulses: Left Radial: Normal, Right Radial: Normal Neurological/Psych: Oriented x3, Normal Speech, Normal Cognition, Normal Motor, Normal Sensation ED Course And Treatment - Laboratory Results Result Diagrams: 02/25/17 13:05 02/25/17 13:05 O2 Sat by Pulse Oximetry: 98 (room air ) - Other Rad Coccyx X-Ray X-Ray: Viewed By Me, Read By Radiologist Interpretation: No fractures or destructive lesions. Progress Note: EKG, X-Ray of the coccyx and blood work were ordered and patient was given Vancomycin IVPB and Zosyn. Dr. Altman was called but was unavailable during weekend. Dr. Woodward who covers for was contacted and [facility] [address]. I spoke to Dr. Landry who accepts patient to med/surg for observation. LUE Duplex has been ordered. - Physician Consult Information Time Consulting Physician Contacted: 15:35 Physician Contacted: Brian Woodward Outcome Of Conversation: Recommends to admit to hospitalist and to have venogram and duplex performed. Disposition - Disposition Disposition: HOSPITALIZED Disposition Time: 15:42 Condition: FAIR - Clinical Impression Clinical Impression: Arm swelling - PA / ACID BLOWER / Resident Statement MD/DO has reviewed & agrees with the documentation as recorded. - Scribe Statement The provider has reviewed the documentation as recorded by the Scribe Farideh Chi All medical record entries made by the Ervin were at my direction and personally dictated by me. I have reviewed the chart and agree that the record accurately reflects my personal performance of the history, physical exam, medical decision making, and the department course for this patient. I have also personally directed, reviewed, and agree with the discharge instructions and disposition. Decision To Admit - Pt Status Changed To: Hospital Disposition Of: Observation - . Bed Request Type: Regular Admitting Physician: Dena Landry Patient Diagnosis: Arm swelling
--- NOTE | 2017-02-25 15:49 | RAD ---
PROCEDURE: Radiographs of the Sacrum and Coccyx HISTORY: pain COMPARISON: None available. TECHNIQUE: Frontal and lateral views of the sacrum and coccyx FINDINGS: BONES: Sacrum and coccyx unremarkable. No fracture or focal lesion. Degenerative changes seen associated with osteophyte formation. SACROILIAC JOINTS: Moderate degenerative changes. OTHER FINDINGS: None. IMPRESSION: No evidence of acute fracture or subluxation. Degenerative changes and osteophyte formation.
[2017-02-25] MEDS: Piperacill/Tazo 2.25gm in Dex 2.25 GM/50 ML BAG IVPB SCH (17:00)
--- NOTE | 2017-02-25 17:02 | RAD ---
HISTORY: pre-op COMPARISON: Comparison is made to 01/16/2017 FINDINGS: LUNGS: Again seen are reticular opacities in the lungs. There is interval mild improvement in the previously seen right lower lobe opacity/infiltrate since the previous exam. PLEURA: Blunting of the left costophrenic angle is again noted. CARDIOVASCULAR: Cardiomegaly is again seen. OSSEOUS STRUCTURES: No significant abnormalities. VISUALIZED UPPER ABDOMEN: Normal. OTHER FINDINGS: None. IMPRESSION: Interval improvement in the right lower lobe since the previous study. Persistent focal opacity/infiltrate at the right lower lobe. Cardiomegaly and pulmonary vascular congestion.
[2017-02-25] MEDS ORDERED: Vancomycin 500mg/D5W 100 ml 500 MG/100 ML BAG IVPB STA (17:15)
[2017-02-25] MEDS ORDERED: Tiotropium 18 mcg Cap For Inhalation INH SCH (17:23)
[2017-02-25 17:55] LABS: INR 1.1
--- NOTE | 2017-02-25 17:56 | CP.PCM.CON ---
History of Present Illness - History of Present Illness History of Present Illness: Vascular Surgery consult note for Dr. Woodward covering for Dr. Altman Consulted for: swelling of forearm over left AVF Patient is a 61M former smoker with 90 pack years, with PMH of HTN and ESRD on HD with Left brachial AV loop hybrid shunt. Patient's shunt was placed 12/29/16 after right AVF thrombosed. Patient came to the ER today because he has noted increasing swelling and erythema in his left forearm over the site of the AV shunt for 10 days. Per patient, yesterday he underwent dialysis, but nurse ended the session early due to swelling of the arm. Patient denies any fevers, chills, tenderness, or drainage from the swollen area. Patient denies any numbness, pallor, pain, or weakness in the distal arm or hand, sudden chest pain , SOB, nausea, vomiting, or any other symptoms besides lower back pain. PMH: HLD, HTN, COPD, prostate cancer, afib, nephrolithiasis, ESRD on HD MWF PSH: L forearm AV loop hybrid shunt and balloon angioplasty of the left subclavian, R AVF, Right hybrid gortex shunt of the right brachial cephalic fistula, turp Social: denies ETOH, 3 pack a day tobacco smoker for 30 years--quit 17 years, denies illicit drugs Review of Systems - Review of Systems All systems: reviewed and no additional remarkable complaints except (as per HPI ) - Constitutional Constitutional: absent: Chills, Fever, Weakness - Cardiovascular Cardiovascular: As Per HPI. absent: Chest Pain, Chest Pain at Rest, Dyspnea - Respiratory Respiratory: absent: Cough, Dyspnea - Gastrointestinal Gastrointestinal: absent: Abdominal Pain, Nausea, Vomiting - Musculoskeletal Musculoskeletal: Back Pain. absent: Muscle Weakness, Numbness, Tingling - Integumentary Integumentary: As Per HPI, Erythema, Pruritus, Swelling - Neurological Neurological: As Per HPI. absent: Numbness, Tingling, Weakness Past Patient History - Infectious Disease Hx of Infectious Diseases: None - Past Medical History & Family History Past Medical History?: Yes - Past Social History Smoking Status: Former Smoker - CARDIAC Hx Atrial Fibrillation: Yes Hx Hypercholesterolemia: Yes Hx Hypertension: Yes - PULMONARY Hx Chronic Obstructive Pulmonary Disease (COPD): Yes - NEUROLOGICAL Hx Neurological Disorder: No - HEENT Hx HEENT Problems: No - RENAL Hx Chronic Kidney Disease: Yes Hx Kidney Stones: Yes - ENDOCRINE/METABOLIC Hx Endocrine Disorders: No - HEMATOLOGICAL/ONCOLOGICAL Hx Anemia: Yes - INTEGUMENTARY Hx Dermatological Problems: Yes - MUSCULOSKELETAL/RHEUMATOLOGICAL Hx Musculoskeletal Disorders: Yes Hx Falls: No Other/Comment: knee problems - GASTROINTESTINAL Hx Gastrointestinal Disorders: Yes Other/Comment: chronic constipation - GENITOURINARY/GYNECOLOGICAL Hx Genitourinary Disorders: Yes Hx Prostate Cancer: No Hx Prostate Problems: Yes (hx of turp) - PSYCHIATRIC Hx Substance Use: No - SURGICAL HISTORY Hx Surgeries: Yes Hx Arteriovenous Shunt: Yes (right upper arm) Hx Vascular Access Device: Yes (right upper arm) Other/Comment: Prostate sx - ANESTHESIA Hx Anesthesia: Yes Hx Anesthesia Reactions: No Hx Malignant Hyperthermia: No Meds Allergies/Adverse Reactions: Allergies Allergy/AdvReac Type Severity Reaction Status Date / Time No Known Allergies Allergy Verified 02/25/17 11:22 - Medications Medications: Current Medications Ergocalciferol (Drisdol 50,000 Intl Units Cap) 1 cap PO QWK [facility] Vancomycin HCl/Dextrose (Vancocin) 500 mg in 100 mls @ 67 mls/hr IVPB STAT STA Stop: 02/25/17 18:44 Last Admin: 02/25/17 17:30 Dose: 67 mls/hr Piperacillin Sod/Tazobactam Sod (Zosyn 2.25 Gm Iv Premix) 2.25 gm in 50 mls @ 200 mls/hr IVPB Q8H [facility] Last Admin: 02/25/17 17:00 Dose: 200 mls/hr Metoprolol Tartrate (Lopressor) 50 mg PO Q12H [facility] Last Admin: 02/25/17 17:48 Dose: 50 mg Fluticasone/Salmeterol (Advair Diskus 250/50) 1 puff INH Q12H [facility] Tamsulosin HCl (Flomax) 0.4 mg PO DAILY [facility] Tiotropium [place] (Spiriva) 18 mcg INH DAILY [facility] Tiotropium [place] (Spiriva Inhalation Handihaler Device) 1 inhaler INH RQ24 [facility] Vitamin B Complex/Vit C/Folic Acid (Nephro-Anival) 1 tab PO DAILY [facility] Physical Exam - Constitutional Appears: Non-toxic, No Acute Distress - Head Exam Head Exam: ATRAUMATIC, NORMOCEPHALIC - Eye Exam Eye Exam: Normal appearance. absent: Conjunctival injection, Scleral icterus - ENT Exam ENT Exam: Mucous Membranes Moist, Normal Oropharynx - Respiratory Exam Respiratory Exam: NORMAL BREATHING PATTERN. absent: Accessory Muscle Use, Respiratory Distress - Cardiovascular Exam Cardiovascular Exam: RRR - GI/Abdominal Exam GI & Abdominal Exam: Soft. absent: Distended, Tenderness - Extremities Exam Extremities exam: Positive for: pedal pulses present. Negative for: calf tenderness, pedal edema Additional comments: left volar forearm just distal to the antecubital fossa with swelling, induration, and erythema over site of AV loop shunt. Area is non-tender. Small areas of superficial skin breakdown without drainage or bleeding. Thrill is diminished, but palpable and pulsatile. Radial and ulnar pulses are palpable and equal bilaterally, with hands neurovascularly intact bilaterally - Back Exam Back exam: absent: CVA tenderness (L), CVA tenderness (R), muscle spasm, paraspinal tenderness, rash noted, vertebral tenderness - Neurological Exam Neurological exam: Alert, Oriented x3 - Psychiatric Exam Psychiatric exam: Normal Affect, Normal Mood - Skin Skin Exam: Dry, Warm Results - Vital Signs Recent Vital Signs: Last Vital Signs Temp 98.8 F 02/25/17 17:24 Pulse 73 02/25/17 17:24 Resp 18 02/25/17 11:17 BP 156/75 H 02/25/17 17:24 Pulse Ox 98 02/25/17 17:52 - Labs Result Diagrams: 02/25/17 13:05 02/25/17 13:05 Assessment & Plan - Assessment and Plan (Free Text) Assessment: 61M with ESRD on HD with swelling and erythema over left forearm AV loop shunt Afebrile, VSS Chronic leukocytopenia Plan: -Stat venous duplex of the left Av shunt to rule out thrombosis--further surgical planning pending results -Continue serial exams--monitor for worsening swelling or distal limb ischemia -Continue to trend CBC/CMP -IV abx -PRN pain and nausea medication -GI/DVT ppx -Continue medical management per primary Discussed with Dr. Woodward, covering for Dr. Agapito De La Rosa, PGY2
[2017-02-25] MEDS: Fluticasone-Salmeterol 250-50mcg Diskus INH SCH (18:41)
--- NOTE | 2017-02-25 18:53 | CP.PCM.HP ---
<KaminiCecy Andrew - Last Filed: 02/25/17 19:00> History of Present Illness - History of Present Illness History of Present Illness: CC: left arm swelling over av fistula site and coccyx pain HPI: Patient is a 61 y/o M with PMHx of ESRD on dialysis since 2014, htn, lymphoma (treated in 2010), bph who presents today for 10 days of left arm edema and erythema over his left av fistula site. Patient also has been having coccyx pain for 10 days which he saw Dr. Meraz for who gave him a medication and recommended xray if pain did not subside. Patient rates left arm pain 6/10. Patient also says he experience SOB sometimes with walking about 6-7 blocks or walking up one flight of stairs. Patient has a mild cough which he says is chronic. Patient denies and fever, chills, dizziness, headache, shortness of breath, abdominal pain, nausea, vomiting, diarrhea, or constipation. Patient says he is able to urinate normally and has no urgency, frequency or pain with urination. PMD: Dr. 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 Alegre, dialysis at [facility] PMH: ESRD on dialysis since 2014, htn, lymphoma (treated in 2010), bph Psurg: kidney stone 1998, left fistula, left portacath Famhx: mom and dad: htn and stroke Social : stopped smoking 17 years ago - before smoked 3ppd for 30 years, denies alcohol and drugs, not working, lives alone Home Meds: Aspirin 81mg, Vitamin D3 400 unit daily, Fluticasone/salmeterol, Folic acid/ vitb complex and C, metoprolol tartrate 50 mg po BID, Flomax .4 mg daily, Tiotropium Present on Admission - Present on Admission Any Indicators Present on Admission: No History of DVT/PE: No History of Uncontrolled Diabetes: No Urinary Catheter: No Decubitus Ulcer Present: No Review of Systems - Constitutional Constitutional: absent: Anorexia, Chills, Daytime Sleepiness, Weight Loss, Weakness - EENT Eyes: absent: Blurred Vision, Diplopia Nose/Mouth/Throat: absent: Nasal Discharge, Post Nasal Drip, Sore Throat - Cardiovascular Cardiovascular: Dyspnea. absent: Chest Pain at Rest, Claudication, Irregular Heart Rhythm, Leg Edema, Palpitations - Respiratory Respiratory: Cough, Dyspnea on Exertion. absent: Dyspnea, Hemoptysis, Stridor - Gastrointestinal Gastrointestinal: absent: Abdominal Pain, Bloating - Genitourinary Genitourinary: absent: Change in Urinary Stream, Difficulty Urinating - Musculoskeletal Musculoskeletal: absent: Abnormal Gait, Arthralgias, Myalgias, Stiffness - Integumentary Integumentary: Erythema, Lesions, Pruritus, Rash, Skin Pain - Neurological Neurological: absent: Dizziness, Numbness - Psychiatric Psychiatric: absent: Confusion - Endocrine Endocrine: absent: Change in Body Appearance, Deepening of Voice, Excessive Sweating - Hematologic/Lymphatic Hematologic: absent: Easy Bleeding, Easy Bruising Past Patient History - Infectious Disease Hx of Infectious Diseases: None - Past Medical History & Family History Past Medical History?: Yes - Past Social History Smoking Status: Former Smoker - CARDIAC Hx Atrial Fibrillation: Yes Hx Hypercholesterolemia: Yes Hx Hypertension: Yes - PULMONARY Hx Chronic Obstructive Pulmonary Disease (COPD): Yes - NEUROLOGICAL Hx Neurological Disorder: No - HEENT Hx HEENT Problems: No - RENAL Hx Chronic Kidney Disease: Yes Hx Kidney Stones: Yes - ENDOCRINE/METABOLIC Hx Endocrine Disorders: No - HEMATOLOGICAL/ONCOLOGICAL Hx Anemia: Yes - INTEGUMENTARY Hx Dermatological Problems: Yes - MUSCULOSKELETAL/RHEUMATOLOGICAL Hx Musculoskeletal Disorders: Yes Hx Falls: No Other/Comment: knee problems - GASTROINTESTINAL Hx Gastrointestinal Disorders: Yes Other/Comment: chronic constipation - GENITOURINARY/GYNECOLOGICAL Hx Genitourinary Disorders: Yes Hx Prostate Cancer: No Hx Prostate Problems: Yes (hx of turp) - PSYCHIATRIC Hx Substance Use: No - SURGICAL HISTORY Hx Surgeries: Yes Hx Arteriovenous Shunt: Yes (right upper arm) Hx Vascular Access Device: Yes (right upper arm) Other/Comment: Prostate sx - ANESTHESIA Hx Anesthesia: Yes Hx Anesthesia Reactions: No Hx Malignant Hyperthermia: No Meds Allergies/Adverse Reactions: Allergies Allergy/AdvReac Type Severity Reaction Status Date / Time No Known Allergies Allergy Verified 02/25/17 11:22 Physical Exam - Constitutional Appears: Non-toxic, No Acute Distress - Head Exam Head Exam: ATRAUMATIC, NORMAL INSPECTION - Eye Exam Eye Exam: EOMI, Normal appearance - ENT Exam ENT Exam: Mucous Membranes Moist - Neck Exam Neck exam: Positive for: Full Rom. Negative for: Tenderness - Respiratory Exam Respiratory Exam: Clear to Auscultation Bilateral, NORMAL BREATHING PATTERN - Cardiovascular Exam Cardiovascular Exam: REGULAR RHYTHM, RRR. absent: Gallop, Rubs, Systolic Murmur - GI/Abdominal Exam GI & Abdominal Exam: Normal Bowel Sounds, Soft. absent: Distended, Firm, Guarding - Extremities Exam Extremities exam: Positive for: tenderness. Negative for: normal inspection Additional comments: left arm erythema, edema and excoriations - Neurological Exam Neurological exam: Alert, Oriented x3 - Psychiatric Exam Psychiatric exam: Normal Affect, Normal Mood - Skin Skin Exam: Erythema, Intact, Warm Results - Vital Signs Recent Vital Signs: Last Vital Signs Temp 98.8 F 02/25/17 17:24 Pulse 73 02/25/17 17:24 Resp 18 02/25/17 11:17 BP 156/75 H 02/25/17 17:24 Pulse Ox 98 02/25/17 18:48 - Labs Result Diagrams: 02/25/17 13:05 02/25/17 13:05 Labs: Laboratory Results - last 24 hr 02/25/17 02/25/17 17:47 17:47 PT 12.1 INR 1.1 APTT 28 Assessment & Plan - Assessment and Plan (Free Text) Assessment: Left Arm Pain r/o clot in av fistula f/u L extremity u/s f/u doppler Nephro consulted, Dr. Alegre- help appreciated Surgery consulted, Dr. Woodward, - help appreciated Vanco 500 mg iv one dose Zosyn 2.25 gm q8h Coccyx pain xray: no acute fracture of subluxation, degenerative changes and osteophyte formation HTN continue home medication metoprolol tartrate 50 mg po BID Asthma continue home medications spiriva and fluticason/ salmeterol BPH continue home medication Flomax .4 mg daily Thrombocytopenia secondary to hx lymphoma heme/onc consulted, Dr. Brantley, help appreciated Prophylaxis contraindication for VTE therapy due to thrombocytopenia <Dena Landry V - Last Filed: 02/26/17 07:51> Results - Vital Signs Recent Vital Signs: Last Vital Signs Temp 98.9 F 02/26/17 00:41 Pulse 76 02/26/17 00:41 Resp 20 02/26/17 00:41 BP 154/72 H 02/26/17 00:41 Pulse Ox 95 02/26/17 00:41 - Labs Result Diagrams: 02/25/17 13:05 02/25/17 13:05 Labs: Laboratory Results - last 24 hr 02/25/17 02/25/17 17:47 17:47 PT 12.1 INR 1.1 APTT 28 Attending/Attestation - Attestation I have personally seen and examined this patient.: Yes I have fully participated in the care of the patient.: Yes I have reviewed all pertinent clinical information: Yes Notes (Text): This is late computer entry for 02/25/17. Patient seen, examined, in [facility] Bed 2 approximately 4:50PM on 02/25/17. Patient reports he has had associated left upper arm swelling for the past couple of days and associated shortness of breathe. Patient is on dialysis, and reports he had a session of dialysis on Monday, cannot remember how much was removed. Patient also reporting low back pain, which he was advised by his outpatient primary doctor for xray. Discussed with ED FRESCO ARTIST, Mariangel Foster, who spoke with Dr. Munoz, vascular surgery covering Dr. Altman this weeking regarding with the AV fistula site is clotted or not and possibly for a venogram. Discussed with surgery resident Rj who will see the patient. Surgery decision management regarding if AV fistula is clotted is per surgery. Patient is a former smoker, has not smoked in 10+ years, hx of atrial fibrillation, hypertension, pancytopenia, prior hx of lymphoma treated in 2010, history of liver cirrhosis and splenomegaly, BPH, and ESRD on Dialysis who follows with Dr. Alegre's nephrology group. Assessment/Plan 1. Malfunction AV site * Vascular Surgery (Dr. Reece)-->on board-->Called by the ED, surgery resident to evaluate * Preoperative/Intraoperative/Postoperative management if AV site requires surgical intervention is per surgery * Nephrology (Dr. Alegre) on consult-->f/u recommendations * Left upper extremity: appreciate bruit and hum; patient has a prior failed AV site on the right upper extremity which is palpable but no flow because it is clotted 2. Left Upper extremity swelling * Appears swollen, erythema, no open wounds * Ordered for non-extremity US r/o abscess; clinically afebrile no white count * Patient given renal dose of Vancomycin 500mg IV X1 and renal dose Zosyn 2.25 IV Q 8 hour to cover 3. Shortness of breathe * Chest xray (02/25/17): interval improvement in the right lower lobe since the previous study. Persistent focal opacity/infiltrate at the right lower love. Cardiomegaly and pulmonary vascular congestion * Patient is a former smoker, stopped ten years ago * will start PRN albuterol * c/w Advair 250/50 1 puff INH Q 12 * c/w Spiriva 18mcg INH daily 4. Coccyydynia * Held off NSAIDs given patient is ESRD * Sacrum and Coccyx Xray (02/25): no evidence of acute fracture or subluxation. Degenerative changes and osteophyte formation * Nurse communication to provide patient "donut hole" type pillow to off load pain * Tylenol 650mg PO Q 6 H PRN 5. History of Atrial fibrillation * Held ASA 325 mg po daily given thrombocytopenia and if patient requires surgical intervention a * c/w Lopressor 50mg PO Q12H (hold SBP<100 and HR<60) * HASBLED score = 3; correlates with 5.8% risk of major bleed- contraindication for anticoagulation * NADIRA score = 1 (no CHF, + HTN, does not meet age, not diabetic) * Echocardiogram (08/24/16): left ventricle systolic function is normal, EF:60-65 %, diastolic dysfunction. No aortic regurgitation is present. Mitral regurgitation is mild. Trace to mild tricuspid regurgitation. no pulmonary hypertension. trace pulmonic valvular regurgitation 6. Hypertension * Continued on home medication Metoprolol 50 mg po BID * Monitor vital signs * Patient is ESRD (MWF) 7. Hyperlipidemia * Crestor 5 mg po HS * Lipid panel: TG 162, Chol 178, LDL <30, HDL 27 8. Pancytopenia * Hematology-oncology (Dr. Tony Brantley) on consult-->f/u recommendations * Prior history of lymphoma previously treated in 2010 * Per review of EMR, bone marrow did not show overt pathology * Prior Abdominal US (09/2016): cholelithiasis. Echogenic liver may been seen in setting of hepatic parenchymal disease or fatty infiltration. Cirrhosis including mildly nodular hepatic contour and splenomegaly. Bilateral renal cortical thinning. Bilateral renal cysts. Mild right-sided hydronephrosis 9. BPH * Continue home medication flomax 0.4 mg po daily 10 . Prophylaxis * SCD * held Pepcid 20 mg po daily secondary to thrombcytopenia * Aspirin held secondary to thrombocytopenia and possible intervation for malfunctioned AV site * PT/OT eval
[2017-02-25] MEDS ORDERED: Morphine 4 MG/ML VIAL IV ONE (20:30)
[2017-02-26] MEDS: Piperacill/Tazo 2.25gm in Dex 2.25 GM/50 ML BAG IVPB SCH ×3 (01:18→17:42)
--- NOTE | 2017-02-26 03:30 | CP.PCM.PN ---
Subjective - Date & Time of Evaluation Date of Evaluation: 02/26/17 Time of Evaluation: 06:00 - Subjective Subjective: Patient seen and examined this AM. KHADIJAHEO. Patient denies any pain at the shunt site, fevers, chills, or chest pain, only complains of lower back pain Objective - Vital Signs/Intake and Output Vital Signs (last 24 hours): Temp Pulse Resp BP Pulse Ox 98.9 F 76 20 154/72 H 95 02/26/17 00:41 02/26/17 00:41 02/26/17 00:41 02/26/17 00:41 02/26/17 00:41 - Medications Medications: Current Medications Acetaminophen (Tylenol 325mg Tab) 650 mg PO Q6 PRN PRN Reason: Pain, moderate (4-7) Ergocalciferol (Drisdol 50,000 Intl Units Cap) 1 cap PO QWK [facility] Piperacillin Sod/Tazobactam Sod (Zosyn 2.25 Gm Iv Premix) 2.25 gm in 50 mls @ 200 mls/hr IVPB Q8H [facility] Last Admin: 02/26/17 01:18 Dose: 200 mls/hr Metoprolol Tartrate (Lopressor) 50 mg PO Q12 [facility] Fluticasone/Salmeterol (Advair Diskus 250/50) 1 puff INH Q12H [facility] Last Admin: 02/25/17 18:41 Dose: 1 puff Tamsulosin HCl (Flomax) 0.4 mg PO DAILY [facility] Tiotropium [place] (Spiriva) 18 mcg INH DAILY [facility] Last Admin: 02/25/17 18:41 Dose: 18 mcg Tiotropium [place] (Spiriva Inhalation Handihaler Device) 1 inhaler INH RQ24 [facility] Last Admin: 02/25/17 18:41 Dose: 1 inhaler Vitamin B Complex/Vit C/Folic Acid (Nephro-Anival) 1 tab PO DAILY [facility] - Labs Labs: PT 12.1 SECONDS (9.7-12.2) 02/25/17 17:47 INR 1.1 02/25/17 17:47 APTT 28 SECONDS (21-34) 02/25/17 17:47 - Constitutional Appears: Non-toxic, No Acute Distress - Head Exam Head Exam: ATRAUMATIC, NORMOCEPHALIC - Eye Exam Eye Exam: Normal appearance. absent: Conjunctival injection, Scleral icterus - ENT Exam ENT Exam: Mucous Membranes Moist, Normal Oropharynx - Respiratory Exam Respiratory Exam: NORMAL BREATHING PATTERN. absent: Accessory Muscle Use, Respiratory Distress - Cardiovascular Exam Cardiovascular Exam: RRR - GI/Abdominal Exam GI & Abdominal Exam: Soft. absent: Distended, Tenderness - Extremities Exam Extremities Exam: absent: Calf Tenderness, Pedal Edema, Tenderness Additional comments: left forearm with swelling and erythema over the shunt site, though erythema is improved since yesterday. Thrill is slight but palpable. Distal pulses palpable , with good strength and capillary refill - Neurological Exam Neurological Exam: Alert, Awake, Oriented x3 - Psychiatric Exam Psychiatric exam: Normal Affect, Normal Mood - Skin Skin Exam: Dry, Normal Color, Warm Assessment and Plan - Assessment and Plan (Free Text) Assessment: 61M with ESRD on HD with swelling and erythema over left forearm AV loop shunt Plan: -f/u report of left upper extremity duplex--further surgical planning pending results -Continue serial exams--monitor for worsening swelling or distal limb ischemia -Continue to trend CBC/CMP -IV abx -PRN pain and nausea medication -GI/DVT ppx -Continue medical management per primary Discussed with Dr. Woodward, covering for Dr. Agapito De La Rosa, PGY2
[2017-02-26] MEDS: Fluticasone-Salmeterol 250-50mcg Diskus INH SCH ×2 (07:49→19:39)
[2017-02-26 08:53] LABS: BASO % 0.8 % (0.0-2.0); EOS # 0.2 K/uL (0.0-0.7); EOS % 6.9 % (0.0-4.0); HEMATOCRIT 30.6 % (35.0-51.0); LYMPH # 0.4 K/uL (1.0-4.3); LYMPH % 12.1 % (20.0-40.0); MEAN CELL VOLUME 91.9 fL (80.0-94.0); MEAN CORPUSCULAR HEMOGLOBIN 30.5 pg (27.0-31.0); MEAN CORPUSCULAR HGB CONC 33.2 g/dL (33.0-37.0); MEAN PLATELET VOLUME 9.7 fL (7.2-11.7); MONO # 0.4 K/uL (0.0-0.8); MONO % 10.2 % (0.0-10.0); WHITE BLOOD COUNT 3.5 K/uL (4.8-10.8)
[2017-02-26 09:11] LABS: POTASSIUM 4.7 mmol/L (3.6-5.2)
[2017-02-26 09:13] LABS: BILIRUBIN,TOTAL 0.8 mg/dL (0.2-1.3)
[2017-02-26 09:14] LABS: ALB/GLOB RATIO 1.6 (1.0-2.1); CALCIUM 9.1 mg/dl (8.6-10.4); PHOSPHOROUS 4.2 mg/dL (2.5-4.5)
[2017-02-26 09:15] LABS: MAGNESIUM 2.3 mg/dL (1.6-2.3)
--- NOTE | 2017-02-26 09:37 | CP.PCM.PN ---
Subjective - Date & Time of Evaluation Date of Evaluation: 02/26/17 Time of Evaluation: 09:30 - Subjective Subjective: Medical Attending Note: Patient seen and examined. Patient denies fever, denies chills, denies chest pain, reports occasional shortness of breathe, denies abdominal pain, denies nausea, denies vomitting, reporting bowel movement. Patient reports redness over the left upper extremity is improving, swelling mildly improving. Patient reports he spoke with his this morning. Discussed with nurse, Niki, in regards to retrieve a Donut shaped pillow to to help assist in relieving pain from the coccyx. Objective - Vital Signs/Intake and Output Vital Signs (last 24 hours): Temp Pulse Resp BP Pulse Ox 98.6 F 76 20 176/84 H 96 02/26/17 08:19 02/26/17 08:19 02/26/17 08:19 02/26/17 08:19 02/26/17 08:19 - Medications Medications: Current Medications Acetaminophen (Tylenol 325mg Tab) 650 mg PO Q6 PRN PRN Reason: Pain, moderate (4-7) Ergocalciferol (Drisdol 50,000 Intl Units Cap) 1 cap PO QWK [facility] Piperacillin Sod/Tazobactam Sod (Zosyn 2.25 Gm Iv Premix) 2.25 gm in 50 mls @ 200 mls/hr IVPB Q8H [facility] Last Admin: 02/26/17 01:18 Dose: 200 mls/hr Metoprolol Tartrate (Lopressor) 50 mg PO Q12 [facility] Fluticasone/Salmeterol (Advair Diskus 250/50) 1 puff INH Q12H [facility] Last Admin: 02/26/17 07:49 Dose: 1 puff Tamsulosin HCl (Flomax) 0.4 mg PO DAILY [facility] Tiotropium [place] (Spiriva) 18 mcg INH DAILY [facility] Last Admin: 02/25/17 18:41 Dose: 18 mcg Tiotropium [place] (Spiriva Inhalation Handihaler Device) 1 inhaler INH RQ24 [facility] Last Admin: 02/26/17 07:49 Dose: 1 inhaler Vitamin B Complex/Vit C/Folic Acid (Nephro-Anival) 1 tab PO DAILY [facility] - Labs Labs: 02/26/17 08:36 02/26/17 08:36 PT 12.1 SECONDS (9.7-12.2) 02/25/17 17:47 INR 1.1 02/25/17 17:47 APTT 28 SECONDS (21-34) 02/25/17 17:47 - Constitutional Appears: Non-toxic, No Acute Distress - Head Exam Head Exam: NORMAL INSPECTION - Eye Exam Eye Exam: EOMI - ENT Exam ENT Exam: Mucous Membranes Moist - Respiratory Exam Respiratory Exam: NORMAL BREATHING PATTERN. absent: Rales, Rhonchi, Wheezes, Respiratory Distress, Stridor Additional comments: good air exchange - Cardiovascular Exam Cardiovascular Exam: Irregular Rhythm, +S1, +S2 - GI/Abdominal Exam GI & Abdominal Exam: Soft, Normal Bowel Sounds. absent: Distended, Firm, Guarding, Tenderness, Rebound Additional comments: obese habitus - Extremities Exam Additional comments: left upper extremity: erythema improving, +swelling possible fluctuance +bruit + venous hum; 2 sites of AV site +Radial pulse Right upper extremity: palpable bruit no venous hum (failed AV access) B/L no appreciable edema b/l lower extremities - Back Exam Back Exam: absent: CVA tenderness (L), CVA tenderness (R), rash noted - Neurological Exam Neurological Exam: Alert, Awake, Oriented x3 Assessment and Plan - Assessment and Plan (Free Text) Assessment: Assessment/Plan 1. Malfunction AV site * Vascular Surgery (Dr. Reece)-->on board-->Called by the ED, surgery resident to evaluate * Preoperative/Intraoperative/Postoperative management if AV site requires surgical intervention is per surgery * Nephrology (Dr. Alegre) on consult-->f/u recommendations * Left upper extremity: appreciate bruit and hum; patient has a prior failed AV site on the right upper extremity which is palpable but no flow because it is clotted 2. Left Upper extremity swelling * Appears swollen, erythema, no open wounds * Ordered for non-extremity US r/o abscess; clinically afebrile no white count-- >pending * Patient given renal dose of Vancomycin 500mg IV X1 and renal dose Zosyn 2.25 IV Q 8 hour to cover * 02/27: improving visually 3. Shortness of breathe * Chest xray (02/25/17): interval improvement in the right lower lobe since the previous study. Persistent focal opacity/infiltrate at the right lower love. Cardiomegaly and pulmonary vascular congestion * Patient is a former smoker, stopped ten years ago * start PRN albuterol * c/w Advair 250/50 1 puff INH Q 12 * c/w Spiriva 18mcg INH daily * Start Oxygen 2 Liter PRN 4. Coccyydynia * Held off NSAIDs given patient is ESRD * Sacrum and Coccyx Xray (02/25): no evidence of acute fracture or subluxation. Degenerative changes and osteophyte formation * Nurse communication to provide patient "donut hole" type pillow to off load pain * Tylenol 650mg PO Q 6 H PRN 5. History of Atrial fibrillation * Held ASA 325 mg po daily given thrombocytopenia and if patient requires surgical intervention a * c/w Lopressor 50mg PO Q12H (hold SBP<100 and HR<60) * HASBLED score = 3; correlates with 5.8% risk of major bleed- contraindication for anticoagulation * NADIRA score = 1 (no CHF, + HTN, does not meet age, not diabetic) * Echocardiogram (08/24/16): left ventricle systolic function is normal, EF:60-65 %, diastolic dysfunction. No aortic regurgitation is present. Mitral regurgitation is mild. Trace to mild tricuspid regurgitation. no pulmonary hypertension. trace pulmonic valvular regurgitation 6. Hypertension * Continued on home medication Metoprolol 50 mg po BID * Monitor vital signs * Patient is ESRD (MWF) 7. Hyperlipidemia * Crestor 5 mg po HS * Lipid panel: TG 162, Chol 178, LDL <30, HDL 27 8. Pancytopenia * Hematology-oncology (Dr. Tony Brantley) on consult-->f/u recommendations * Prior history of lymphoma previously treated in 2010 * Per review of EMR, bone marrow did not show overt pathology * Prior Abdominal US (09/2016): cholelithiasis. Echogenic liver may been seen in setting of hepatic parenchymal disease or fatty infiltration. Cirrhosis including mildly nodular hepatic contour and splenomegaly. Bilateral renal cortical thinning. Bilateral renal cysts. Mild right-sided hydronephrosis 9. BPH * Continue home medication flomax 0.4 mg po daily 10 . Prophylaxis * SCD * held Pepcid 20 mg po daily secondary to thrombcytopenia * Aspirin held secondary to thrombocytopenia and possible intervation for malfunctioned AV site * PT/OT eval * Warm or Cold compresses PRN for low back pain
[2017-02-26] MEDS: Multivitamin Vitamin B Complex (Nephro-Vite) Tab PO SCH (10:12)
--- NOTE | 2017-02-26 17:34 | CP.PCM.CON ---
History of Present Illness - History of Present Illness History of Present Illness: patient seen and examined consult dictated await vasculr evaluation re use of left arm fistula schedule dialysis in next 24-48 hrs Past Patient History - Infectious Disease Hx of Infectious Diseases: None - Past Medical History & Family History Past Medical History?: Yes - Past Social History Smoking Status: Former Smoker - CARDIAC Hx Atrial Fibrillation: Yes Hx Hypercholesterolemia: Yes Hx Hypertension: Yes - PULMONARY Hx Chronic Obstructive Pulmonary Disease (COPD): Yes - NEUROLOGICAL Hx Neurological Disorder: No - HEENT Hx HEENT Problems: No - RENAL Hx Chronic Kidney Disease: Yes Date of Last Dialysis Treatment: 02/24/17 Hx Kidney Stones: Yes (rt kidney) - ENDOCRINE/METABOLIC Hx Endocrine Disorders: No - HEMATOLOGICAL/ONCOLOGICAL Hx Anemia: Yes - INTEGUMENTARY Hx Dermatological Problems: No - MUSCULOSKELETAL/RHEUMATOLOGICAL Hx Musculoskeletal Disorders: Yes Hx Back Pain: Yes (coccyx area) Hx Falls: No Other/Comment: knee problems - GASTROINTESTINAL Hx Gastrointestinal Disorders: Yes Other/Comment: chronic constipation - GENITOURINARY/GYNECOLOGICAL Hx Genitourinary Disorders: Yes Hx Prostate Cancer: No Hx Prostate Problems: Yes (hx of turp) - PSYCHIATRIC Hx Substance Use: No - SURGICAL HISTORY Hx Surgeries: Yes Hx Arteriovenous Shunt: Yes (right upper arm) Hx Vascular Access Device: Yes (right upper arm) Other/Comment: Prostate sx - ANESTHESIA Hx Anesthesia: Yes Hx Anesthesia Reactions: No Hx Malignant Hyperthermia: No Has any member of the family had a problem w/ anesthesia?: No Meds Allergies/Adverse Reactions: Allergies Allergy/AdvReac Type Severity Reaction Status Date / Time No Known Allergies Allergy Verified 02/25/17 11:22 - Medications Medications: Current Medications Acetaminophen (Tylenol 325mg Tab) 650 mg PO Q6 PRN PRN Reason: Pain, moderate (4-7) Last Admin: 02/26/17 10:15 Dose: 650 mg Albuterol (Ventolin Hfa 90 Mcg/Actuation (8 G)) 1 puff INH RQ6 PRN PRN Reason: Shortness of Breath Ergocalciferol (Drisdol 50,000 Intl Units Cap) 1 cap PO QWK [facility] Piperacillin Sod/Tazobactam Sod (Zosyn 2.25 Gm Iv Premix) 2.25 gm in 50 mls @ 200 mls/hr IVPB Q8H [facility] Last Admin: 02/26/17 10:12 Dose: 200 mls/hr Metoprolol Tartrate (Lopressor) 50 mg PO Q12 [facility] Last Admin: 02/26/17 10:12 Dose: 50 mg Fluticasone/Salmeterol (Advair Diskus 250/50) 1 puff INH Q12H [facility] Last Admin: 02/26/17 07:49 Dose: 1 puff Tamsulosin HCl (Flomax) 0.4 mg PO DAILY [facility] Last Admin: 02/26/17 10:12 Dose: 0.4 mg Tiotropium [place] (Spiriva) 18 mcg INH RQD [facility] Vitamin B Complex/Vit C/Folic Acid (Nephro-Anival) 1 tab PO DAILY [facility] Last Admin: 02/26/17 10:12 Dose: 1 tab Results - Vital Signs Recent Vital Signs: Last Vital Signs Temp 97.7 F 02/26/17 16:42 Pulse 69 02/26/17 16:42 Resp 20 02/26/17 16:42 BP 152/90 H 02/26/17 16:42 Pulse Ox 96 02/26/17 16:42 - Labs Result Diagrams: 02/26/17 08:36 02/26/17 08:36 Labs: Laboratory Results - last 24 hr 02/25/17 02/25/17 02/26/17 17:47 17:47 08:36 WBC 3.5 L RBC 3.33 L Hgb 10.1 L Hct 30.6 L MCV 91.9 MCH 30.5 MCHC 33.2 RDW 18.0 H Plt Count 64 L MPV 9.7 Neut % (Auto) 70.0 Lymph % (Auto) 12.1 L Payne % (Auto) 10.2 H Eos % (Auto) 6.9 H Baso % (Auto) 0.8 Neut # 2.4 Lymph # 0.4 L Payne # 0.4 Eos # 0.2 Baso # 0.0 PT 12.1 INR 1.1 APTT 28 Sodium Potassium Chloride Carbon Dioxide Anion Gap BUN Creatinine Est GFR ( Amer) Est GFR (Non-Af Amer) Random Glucose Calcium Phosphorus Magnesium Total Bilirubin AST ALT Alkaline Phosphatase Total Protein Albumin Globulin Albumin/Globulin Ratio 02/26/17 08:36 WBC RBC Hgb Hct MCV MCH MCHC RDW Plt Count MPV Neut % (Auto) Lymph % (Auto) Payne % (Auto) Eos % (Auto) Baso % (Auto) Neut # Lymph # Payne # Eos # Baso # PT INR APTT Sodium 141 Potassium 4.7 Chloride 100 Carbon Dioxide 29 Anion Gap 17 BUN 45 H Creatinine 9.1 H* Est GFR ( Amer) 7 Est GFR (Non-Af Amer) 6 Random Glucose 73 L Calcium 9.1 Phosphorus 4.2 Magnesium 2.3 Total Bilirubin 0.8 AST 22 ALT 30 Alkaline Phosphatase 56 Total Protein 6.0 L Albumin 3.6 Globulin 2.3 Albumin/Globulin Ratio 1.6
--- NOTE | 2017-02-27 01:01 | CP.PCM.CON ---
History of Present Illness - History of Present Illness History of Present Illness: 61 year old male with a history of HTN, COPD, afib, non hodgkins lymphoma s/p 6 months chemotherapy in 2010, pancytopenia s/p bone marrow biopsy by me negative for overt abnormality, admitted with left upper extremity swelling. The patient reports to being diagnosed and treated with non hodgkins lymphoma in 2010 at [facility] in [facility]. He was treated with 6 months of unknown chemotherapy and was routinely following with them every 3 months however in the last 1-2 years he reports he has not followed up. He denies abnormal bleeding and bruising. I performed a bone marrow aspirate and biopsy to evaluate his pancytopenia. Results showed a normocellular marrow but abnormal maturation patterns in the myeloid precursors by flow cytometery, and normal male karyotype. Past medical history: HTN, COPD, afib, non hodgkins lymphoma Past surgical history: None Family history: Denies hematologic and oncologic problems Social history: Denies tobacco, alcohol, and illicit drug use. Allergies: NKA Review of systems: All remaining review of systems including HEENT, cardiovascular, respiratory, gastrointestinal, genitourinary, musculoskeletal, dermatologic, neurologic, and psychiatric are negative unless mentioned in the HPI. Past Patient History - Infectious Disease Hx of Infectious Diseases: None - Past Medical History & Family History Past Medical History?: Yes - Past Social History Smoking Status: Former Smoker - CARDIAC Hx Atrial Fibrillation: Yes Hx Hypercholesterolemia: Yes Hx Hypertension: Yes - PULMONARY Hx Chronic Obstructive Pulmonary Disease (COPD): Yes - NEUROLOGICAL Hx Neurological Disorder: No - HEENT Hx HEENT Problems: No - RENAL Hx Chronic Kidney Disease: Yes Date of Last Dialysis Treatment: 02/24/17 Hx Kidney Stones: Yes (rt kidney) - ENDOCRINE/METABOLIC Hx Endocrine Disorders: No - HEMATOLOGICAL/ONCOLOGICAL Hx Anemia: Yes - INTEGUMENTARY Hx Dermatological Problems: No - MUSCULOSKELETAL/RHEUMATOLOGICAL Hx Musculoskeletal Disorders: Yes Hx Back Pain: Yes (coccyx area) Hx Falls: No Other/Comment: knee problems - GASTROINTESTINAL Hx Gastrointestinal Disorders: Yes Other/Comment: chronic constipation - GENITOURINARY/GYNECOLOGICAL Hx Genitourinary Disorders: Yes Hx Prostate Cancer: No Hx Prostate Problems: Yes (hx of turp) - PSYCHIATRIC Hx Substance Use: No - SURGICAL HISTORY Hx Surgeries: Yes Hx Arteriovenous Shunt: Yes (right upper arm) Hx Vascular Access Device: Yes (right upper arm) Other/Comment: Prostate sx - ANESTHESIA Hx Anesthesia: Yes Hx Anesthesia Reactions: No Hx Malignant Hyperthermia: No Has any member of the family had a problem w/ anesthesia?: No Meds Allergies/Adverse Reactions: Allergies Allergy/AdvReac Type Severity Reaction Status Date / Time No Known Allergies Allergy Verified 02/25/17 11:22 - Medications Medications: Current Medications Acetaminophen (Tylenol 325mg Tab) 650 mg PO Q6 PRN PRN Reason: Pain, moderate (4-7) Last Admin: 02/26/17 17:47 Dose: 650 mg Albuterol (Ventolin Hfa 90 Mcg/Actuation (8 G)) 1 puff INH RQ6 PRN PRN Reason: Shortness of Breath Ergocalciferol (Drisdol 50,000 Intl Units Cap) 1 cap PO QWK [facility] Piperacillin Sod/Tazobactam Sod (Zosyn 2.25 Gm Iv Premix) 2.25 gm in 50 mls @ 200 mls/hr IVPB Q8H [facility] Last Admin: 02/26/17 17:42 Dose: 200 mls/hr Metoprolol Tartrate (Lopressor) 50 mg PO Q12 [facility] Last Admin: 02/26/17 21:59 Dose: 50 mg Fluticasone/Salmeterol (Advair Diskus 250/50) 1 puff INH Q12H [facility] Last Admin: 02/26/17 19:39 Dose: 1 puff Tamsulosin HCl (Flomax) 0.4 mg PO DAILY [facility] Last Admin: 02/26/17 10:12 Dose: 0.4 mg Tiotropium [place] (Spiriva) 18 mcg INH RQD [facility] Vitamin B Complex/Vit C/Folic Acid (Nephro-Anival) 1 tab PO DAILY [facility] Last Admin: 02/26/17 10:12 Dose: 1 tab Physical Exam - Head Exam Head Exam: ATRAUMATIC - Eye Exam Eye Exam: Normal appearance - ENT Exam ENT Exam: Mucous Membranes Dry - Respiratory Exam Respiratory Exam: NORMAL BREATHING PATTERN - Cardiovascular Exam Cardiovascular Exam: +S1, +S2 - GI/Abdominal Exam GI & Abdominal Exam: Normal Bowel Sounds - Extremities Exam Additional comments: LUE swelling - Neurological Exam Neurological exam: Oriented x3 - Psychiatric Exam Psychiatric exam: Normal Affect, Normal Mood - Skin Skin Exam: Warm Results - Vital Signs Recent Vital Signs: Last Vital Signs Temp 97.7 F 02/26/17 16:42 Pulse 69 02/26/17 16:42 Resp 20 02/26/17 16:42 BP 152/90 H 02/26/17 16:42 Pulse Ox 96 02/26/17 16:42 - Labs Result Diagrams: 02/26/17 08:36 02/26/17 08:36 Labs: Laboratory Results - last 24 hr 02/26/17 02/26/17 08:36 08:36 WBC 3.5 L RBC 3.33 L Hgb 10.1 L Hct 30.6 L MCV 91.9 MCH 30.5 MCHC 33.2 RDW 18.0 H Plt Count 64 L MPV 9.7 Neut % (Auto) 70.0 Lymph % (Auto) 12.1 L Webb % (Auto) 10.2 H Eos % (Auto) 6.9 H Baso % (Auto) 0.8 Neut # 2.4 Lymph # 0.4 L Webb # 0.4 Eos # 0.2 Baso # 0.0 Sodium 141 Potassium 4.7 Chloride 100 Carbon Dioxide 29 Anion Gap 17 BUN 45 H Creatinine 9.1 H* Est GFR ( Amer) 7 Est GFR (Non-Af Amer) 6 Random Glucose 73 L Calcium 9.1 Phosphorus 4.2 Magnesium 2.3 Total Bilirubin 0.8 AST 22 ALT 30 Alkaline Phosphatase 56 Total Protein 6.0 L Albumin 3.6 Globulin 2.3 Albumin/Globulin Ratio 1.6 Assessment & Plan (1) Pancytopenia Assessment and Plan: anemia of CKD bone marrow negative for pathology but may have low grade MDS no transfusion indication cont. to monitor Status: Acute (2) Non-Hodgkin lymphoma Assessment and Plan: s/p treatment in remission Thank you for this interesting consult. Status: Acute
[2017-02-27] MEDS: Piperacill/Tazo 2.25gm in Dex 2.25 GM/50 ML BAG IVPB SCH ×3 (01:11→20:58)
[2017-02-27] MEDS: Tiotropium 18 mcg Cap For Inhalation INH SCH (08:16)
[2017-02-27] MEDS: Fluticasone-Salmeterol 250-50mcg Diskus INH SCH ×2 (08:16→20:32)
[2017-02-27] MEDS: Albuterol HFA 90 mcg/actuation (8 g) INH PRN (08:16)
--- NOTE | 2017-02-27 09:13 | CP.PCM.PN ---
<Esteban Omalley - Last Filed: 02/27/17 18:39> Subjective - Date & Time of Evaluation Date of Evaluation: 02/27/17 Time of Evaluation: 09:13 - Subjective Subjective: PGY1 Note for Dr. Landry HPI: Patient seen and examined at bedside. Doing well with no complaints at this time. States the swelling in his arm has decreased. The redness has gone down as well. Pain has decreased. Denies N/V/D/C/F/ chest pain, SOB Objective - Vital Signs/Intake and Output Vital Signs (last 24 hours): Temp Pulse Resp BP Pulse Ox 97.9 F 62 20 158/71 H 98 02/27/17 08:06 02/27/17 08:06 02/27/17 08:06 02/27/17 08:06 02/27/17 08:06 - Medications Medications: Current Medications Acetaminophen (Tylenol 325mg Tab) 650 mg PO Q6 PRN PRN Reason: Pain, moderate (4-7) Last Admin: 02/26/17 17:47 Dose: 650 mg Albuterol (Ventolin Hfa 90 Mcg/Actuation (8 G)) 1 puff INH RQ6 PRN PRN Reason: Shortness of Breath Last Admin: 02/27/17 08:16 Dose: 1 puff Ergocalciferol (Drisdol 50,000 Intl Units Cap) 1 cap PO QWK [facility] Piperacillin Sod/Tazobactam Sod (Zosyn 2.25 Gm Iv Premix) 2.25 gm in 50 mls @ 200 mls/hr IVPB Q8H [facility] Last Admin: 02/27/17 01:11 Dose: 200 mls/hr Metoprolol Tartrate (Lopressor) 50 mg PO Q12 [facility] Last Admin: 02/26/17 21:59 Dose: 50 mg Fluticasone/Salmeterol (Advair Diskus 250/50) 1 puff INH Q12H [facility] Last Admin: 02/27/17 08:16 Dose: 1 puff Tamsulosin HCl (Flomax) 0.4 mg PO DAILY [facility] Last Admin: 02/26/17 10:12 Dose: 0.4 mg Tiotropium [place] (Spiriva) 18 mcg INH RQD [facility] Last Admin: 02/27/17 08:16 Dose: 18 mcg Vitamin B Complex/Vit C/Folic Acid (Nephro-Anival) 1 tab PO DAILY [facility] Last Admin: 02/26/17 10:12 Dose: 1 tab - Labs Labs: 02/26/17 08:36 02/26/17 08:36 PT 12.1 SECONDS (9.7-12.2) 02/25/17 17:47 INR 1.1 02/25/17 17:47 APTT 28 SECONDS (21-34) 02/25/17 17:47 - Constitutional Appears: Well, Non-toxic, No Acute Distress - Head Exam Head Exam: ATRAUMATIC, NORMAL INSPECTION, NORMOCEPHALIC - Eye Exam Eye Exam: EOMI Pupil Exam: NORMAL ACCOMODATION - ENT Exam ENT Exam: Mucous Membranes Moist - Neck Exam Neck Exam: Full ROM - Respiratory Exam Respiratory Exam: Clear to Ausculation Bilateral, NORMAL BREATHING PATTERN - Cardiovascular Exam Cardiovascular Exam: REGULAR RHYTHM - GI/Abdominal Exam GI & Abdominal Exam: Soft, Normal Bowel Sounds. absent: Distended, Tenderness - Extremities Exam Extremities Exam: absent: Joint Swelling, Tenderness Additional comments: swelling in left forearm decreased, minimal erythema. Fistula auscultated and palpated - Neurological Exam Neurological Exam: Alert, Awake, Oriented x3 - Psychiatric Exam Psychiatric exam: Normal Affect, Normal Mood - Skin Skin Exam: Dry, Intact, Normal Color, Warm Assessment and Plan - Assessment and Plan (Free Text) Assessment: Malfunction AV site (L.Forearm) * Vascular Surgery (Dr. Reece) * AV Fistulogram tomorrow * Nephrology (Dr. Alegre) * Dialysis MWF Left Upper extremity swelling * Appears swollen, erythema, no open wounds * US: Cellulitis +/- abscess * Vancomycin 500mg IV X1 * Zosyn 2.25 IV Q 8 Shortness of breathe * Chest xray * interval improvement in the right lower lobe * Persistent focal opacity/infiltrate at the right lower lobe * Cardiomegaly and pulmonary vascular congestion * PRN albuterol * Advair 250/50 1 puff INH Q 12 * Spiriva 18mcg INH daily * Oxygen 2 Liter PRN Coccyydynia * Sacrum and Coccyx Xray * no evidence of acute fracture or subluxation. * Degenerative changes and osteophyte formation * "donut hole" type pillow to off load pain * Tylenol 650mg PO Q 6 H PRN History of Atrial fibrillation * Lopressor 50mg PO Q12H * HASBLED score = 3; correlates with 5.8% risk of major bleed- contraindication for anticoagulation * NADIRA score = 1 (no CHF, + HTN, does not meet age, not diabetic) * Echocardiogram: left ventricle systolic function is normal, EF:60-65%, diastolic dysfunction. Hypertension * Metoprolol 50 mg po BID Hyperlipidemia * Crestor 5 mg po HS * Lipid panel: TG 162, Chol 178, LDL <30, HDL 27 Pancytopenia * Heme (Dr. Tony Brantley) * Prior history of lymphoma BPH * flomax 0.4 mg po daily Prophylaxis * SCD * held Pepcid 20 mg po daily secondary to thrombcytopenia * Aspirin held secondary to thrombocytopenia and possible intervation for malfunctioned AV site * PT/OT eval * Warm or Cold compresses PRN for low back pain <Dena Landry V - Last Filed: 02/28/17 07:41> Objective - Vital Signs/Intake and Output Vital Signs (last 24 hours): Temp Pulse Resp BP Pulse Ox 97.9 F 67 20 158/81 H 100 02/28/17 00:00 02/28/17 00:00 02/28/17 00:00 02/28/17 00:00 02/28/17 00:00 Intake and Output: 02/28/17 02/28/17 06:59 18:59 Intake Total 350 Balance 350 - Medications Medications: Current Medications Acetaminophen (Tylenol 325mg Tab) 650 mg PO Q6 PRN PRN Reason: Pain, moderate (4-7) Last Admin: 02/26/17 17:47 Dose: 650 mg Albuterol (Ventolin Hfa 90 Mcg/Actuation (8 G)) 1 puff INH RQ6 PRN PRN Reason: Shortness of Breath Last Admin: 02/27/17 08:16 Dose: 1 puff Ergocalciferol (Drisdol 50,000 Intl Units Cap) 1 cap PO QWK [facility] Piperacillin Sod/Tazobactam Sod (Zosyn 2.25 Gm Iv Premix) 2.25 gm in 50 mls @ 200 mls/hr IVPB Q8H [facility] Last Admin: 02/27/17 20:58 Dose: 200 mls/hr Metoprolol Tartrate (Lopressor) 50 mg PO Q12 [facility] Last Admin: 02/27/17 21:04 Dose: 50 mg Fluticasone/Salmeterol (Advair Diskus 250/50) 1 puff INH Q12H [facility] Last Admin: 02/27/17 20:32 Dose: 1 puff Tamsulosin HCl (Flomax) 0.4 mg PO DAILY [facility] Last Admin: 02/27/17 11:03 Dose: Not Given Tiotropium [place] (Spiriva) 18 mcg INH RQD [facility] Last Admin: 02/27/17 08:16 Dose: 18 mcg Vitamin B Complex/Vit C/Folic Acid (Nephro-Anival) 1 tab PO DAILY [facility] Last Admin: 02/27/17 11:03 Dose: Not Given - Labs Labs: 02/27/17 15:49 02/27/17 15:49 PT 12.1 SECONDS (9.7-12.2) 02/25/17 17:47 INR 1.1 02/25/17 17:47 APTT 28 SECONDS (21-34) 02/25/17 17:47 Attending/Attestation - Attestation I have personally seen and examined this patient.: Yes I have fully participated in the care of the patient.: Yes I have reviewed all pertinent clinical information, including history, physical exam and plan: Yes Notes (Text): This is late computer entry for 02/27/17. Patient seen, examined and case discussed with day-time resident. Patient seen at bedside during afternoon rounds. Swelling associated over left upper extremity is less and erythema improved. Discussed with surgery residents , [place] and [place] plan is for fistulogram for tomorrow with Dr. Altman. Patient is on IV abx to cover for associated cellulitis over dialysis access site. When patient resumes dialysis, will need to resume Vancomycin post dialysis to cover for MRSA. As per Detsky's criteria, patient is risk is associated with Class I 6% complications for noncardiac surgery (ESRD). Will need to follow-up with PT regarding donut pillow for patient's low back pain. Assessment/Plan 1. Malfunction AV site * Vascular Surgery (Dr. Reece covering for Dr. Altman)-->on board--> Called by the ED on admissio * Preoperative/Intraoperative/Postoperative management if AV site requires surgical intervention is per surgery * Nephrology (Dr. 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 * Aspirin held on admission for potential surgical intervention-->will need to follow-up with surgery to determine when to restart 2. Left Upper extremity swelling * Appears swollen, erythema, no open wounds * Ordered for non-extremity US r/o abscess; clinically afebrile no white count-- >pending * Patient given renal dose of Vancomycin 500mg IV X1 and renal dose Zosyn 2.25 IV Q 8 hour to cover * 02/27: improving visually 3. Shortness of breathe * Chest xray (02/25/17): interval improvement in the right lower lobe since the previous study. Persistent focal opacity/infiltrate at the right lower love. Cardiomegaly and pulmonary vascular congestion * Patient is a former smoker, stopped ten years ago * start PRN albuterol * c/w Advair 250/50 1 puff INH Q 12 * c/w Spiriva 18mcg INH daily * Start Oxygen 2 Liter PRN 4. Coccyydynia * Held off NSAIDs given patient is ESRD * Sacrum and Coccyx Xray (02/25): no evidence of acute fracture or subluxation. Degenerative changes and osteophyte formation * Nurse communication to provide patient "donut hole" type pillow to off load pain * Tylenol 650mg PO Q 6 H PRN 5. History of Atrial fibrillation * Held ASA 325 mg po daily given thrombocytopenia and if patient requires surgical intervention a * c/w Lopressor 50mg PO Q12H (hold SBP<100 and HR<60) * HASBLED score = 3; correlates with 5.8% risk of major bleed- contraindication for anticoagulation * NADIRA score = 1 (no CHF, + HTN, does not meet age, not diabetic) * Echocardiogram (08/24/16): left ventricle systolic function is normal, EF:60-65 %, diastolic dysfunction. No aortic regurgitation is present. Mitral regurgitation is mild. Trace to mild tricuspid regurgitation. no pulmonary hypertension. trace pulmonic valvular regurgitation 6. Hypertension * Continued on home medication Metoprolol 50 mg po BID * Monitor vital signs * Patient is ESRD (MWF) 7. Hyperlipidemia * Crestor 5 mg po HS * Lipid panel: TG 162, Chol 178, LDL <30, HDL 27 8. Pancytopenia * Hematology-oncology (Dr. Tony Brantley) on consult-->f/u recommendations * Prior history of lymphoma previously treated in 2010 * Per review of EMR, bone marrow did not show overt pathology * Prior Abdominal US (09/2016): cholelithiasis. Echogenic liver may been seen in setting of hepatic parenchymal disease or fatty infiltration. Cirrhosis including mildly nodular hepatic contour and splenomegaly. Bilateral renal cortical thinning. Bilateral renal cysts. Mild right-sided hydronephrosis 9. BPH * Continue home medication flomax 0.4 mg po daily 10 . Prophylaxis * SCD * held Pepcid 20 mg po daily secondary to thrombcytopenia * Aspirin held secondary to thrombocytopenia and possible intervation for malfunctioned AV site * PT/OT eval * Warm or Cold compresses PRN for low back pain * NPO after midnight for fistulogram
--- NOTE | 2017-02-27 09:48 | CON ---
DATE: 02/26/2017 HISTORY OF PRESENT ILLNESS: Mr. Du is a [id number] who has been admitted for management of dialysis-dependent renal failure. Mr. Du has a history of hypertension, on dialysis for the last years, his last treatment was on 02/24/2017. Over the past week, his left arm has progressively swollen, although the fistula has functioned properly. He has had coccygeal pain over a year, which has increased in intensity without trauma over the past week or two. He came to the emergency room after dialysis on 02/24/2017 and was admitted. Today, his white count is 3500, hemoglobin 10.1, and hematocrit 30.6. Sodium 141, potassium 4.7, chloride 100, CO2 of 29, BUN 25, and creatinine 5.1. X-ray of his sacrum and coccyx showed no fracture. Duplex scan of the left upper arm is still pending. PAST MEDICAL HISTORY: Lymphoma treated in 2010, BPH, hypertension, and kidney stone in 1998. ALLERGIES: HE HAS NO ALLERGIES. MEDICATIONS: Include aspirin, vitamin D, fluconazole, folic acid, metoprolol, Flomax, and Spiriva. He has been admitted to the [facility]. FAMILY HISTORY: Positive for hypertension. SOCIAL HISTORY: He discontinued cigarettes over 17 yeas ago. He denies alcohol or drug abuse. REVIEW OF SYSTEMS: Please see the above. He denied chills, fever, headache, chest pain, increasing shortness of breath, cough, abdominal pain, nausea, vomiting, or diarrhea. He has made no urine this week. Please see the above. PHYSICAL EXAMINATION: GENERAL: He is awake, alert, and in no acute distress. VITAL SIGNS: Blood pressure was 152/90, temperature was 97.7, and pulse was 69. NECK: There was no jugular venous distention at 30 degrees. LUNGS: Clear. HEART: Rhythm regular. ABDOMEN: Soft and nontender. EXTREMITIES: He moves all his extremities. Left arm is swollen with a patent fistula. IMPRESSION: End-stage renal disease, dialysis dependent; hypertensive nephrosclerosis; intraaortic balloon pump; central venous stenosis left arm; coccygeal pain; history of lymphoma; and benign prostatic hypertrophy. RECOMMENDATIONS: Await further vascular evaluation left arm fistula. We will schedule dialysis within the next 24 to 48 hours. Await further evaluation coccygeal pain. Thank you for your kind referral. We will continue to follow with you. Esteban Galvan MD
--- NOTE | 2017-02-27 09:55 | CP.PCM.PN ---
Subjective - Date & Time of Evaluation Date of Evaluation: 02/27/17 Time of Evaluation: 09:55 - Subjective Subjective: Vascular Surgery Progress Note for Dr. Altman Patient seen and examined at bedside. No acute event overnight. Patient resting in bed comfortably. He denies any pain at the shunt site and only complaining of swelling. Patient is tolerating diet. He is able to use his LUE for daily activities. Denies fevers/chills, chest pain, SOB, abd pain, n/v/d. Admits to some lower back pain as well. Objective - Vital Signs/Intake and Output Vital Signs (last 24 hours): Temp Pulse Resp BP Pulse Ox 97.9 F 62 20 158/71 H 98 02/27/17 08:06 02/27/17 08:06 02/27/17 08:06 02/27/17 08:06 02/27/17 08:06 - Medications Medications: Current Medications Acetaminophen (Tylenol 325mg Tab) 650 mg PO Q6 PRN PRN Reason: Pain, moderate (4-7) Last Admin: 02/26/17 17:47 Dose: 650 mg Albuterol (Ventolin Hfa 90 Mcg/Actuation (8 G)) 1 puff INH RQ6 PRN PRN Reason: Shortness of Breath Last Admin: 02/27/17 08:16 Dose: 1 puff Ergocalciferol (Drisdol 50,000 Intl Units Cap) 1 cap PO QWK [facility] Piperacillin Sod/Tazobactam Sod (Zosyn 2.25 Gm Iv Premix) 2.25 gm in 50 mls @ 200 mls/hr IVPB Q8H [facility] Last Admin: 02/27/17 01:11 Dose: 200 mls/hr Metoprolol Tartrate (Lopressor) 50 mg PO Q12 [facility] Last Admin: 02/26/17 21:59 Dose: 50 mg Fluticasone/Salmeterol (Advair Diskus 250/50) 1 puff INH Q12H [facility] Last Admin: 02/27/17 08:16 Dose: 1 puff Tamsulosin HCl (Flomax) 0.4 mg PO DAILY [facility] Last Admin: 02/26/17 10:12 Dose: 0.4 mg Tiotropium [place] (Spiriva) 18 mcg INH RQD [facility] Last Admin: 02/27/17 08:16 Dose: 18 mcg Vitamin B Complex/Vit C/Folic Acid (Nephro-Anival) 1 tab PO DAILY [facility] Last Admin: 02/26/17 10:12 Dose: 1 tab - Labs Labs: 02/26/17 08:36 02/26/17 08:36 PT 12.1 SECONDS (9.7-12.2) 02/25/17 17:47 INR 1.1 02/25/17 17:47 APTT 28 SECONDS (21-34) 02/25/17 17:47 - Constitutional Appears: No Acute Distress - Head Exam Head Exam: ATRAUMATIC, NORMOCEPHALIC - Eye Exam Eye Exam: Normal appearance - ENT Exam ENT Exam: Mucous Membranes Moist - Respiratory Exam Respiratory Exam: NORMAL BREATHING PATTERN - Cardiovascular Exam Cardiovascular Exam: REGULAR RHYTHM - GI/Abdominal Exam GI & Abdominal Exam: Soft. absent: Distended, Firm, Guarding, Tenderness, Rebound - Extremities Exam Extremities Exam: Full ROM, Normal Capillary Refill. absent: Tenderness Additional comments: LUE: swelling with palpable thrill, Distal pulses palpable, neurovascularly intact, strength 5/5 - Back Exam Back Exam: paraspinal tenderness (lumbar) - Neurological Exam Neurological Exam: Alert, Awake, Oriented x3 - Psychiatric Exam Psychiatric exam: Normal Affect, Normal Mood - Skin Skin Exam: Dry, Intact Assessment and Plan - Assessment and Plan (Free Text) Plan: 61 M with ESRD on HD with swelling and erythema over left forearm AV loop shunt -f/u report of left upper extremity duplex -Continue serial exams -Continue IV abx -PRN Anti-emetics/Analgesics -NPO past MN for fistulogram tomorrow -Will CIARRA Monteiro PGY1
[2017-02-27] MEDS: Multivitamin Vitamin B Complex (Nephro-Vite) Tab PO SCH (11:03)
--- NOTE | 2017-02-27 12:52 | US ---
Limited left forearm soft tissue ultrasound History: Abscess. Comparison: None available. Technique: Real-time sonography was performed through the soft tissues of the left forearm. Findings: Limited study. Ill-defined lobulated heterogeneous mixed echogenic collection seen within left forearm at the site of the abnormality measuring 3.6 x 1.2 x 2.2 centimeters concerning for a possible abscess and or phlegmon collection. Additional etiology not excluded. This appears to be adjacent to and or contiguous with the adjacent vasculature of the forearm. Prominent confluent reticulation and edema within the adjacent circumferential subcutaneous soft tissues and musculature suggestive for an underlying cellulitis. Impression: Ill-defined lobulated heterogeneous mixed echogenic collection seen within left forearm at the site of the abnormality measuring 3.6 x 1.2 x 2.2 centimeters concerning for a possible abscess and or phlegmon collection. Additional etiology and/or lesion and/or vascular malformation not excluded. This appears to be adjacent to and or contiguous with the adjacent vasculature of the forearm. Prominent confluent reticulation and edema within the adjacent circumferential subcutaneous soft tissues and musculature suggestive for an underlying cellulitis. This may be better delineated with a contrast-enhanced MRI.
--- NOTE | 2017-02-27 13:29 | CP.PCM.PN ---
Subjective - Date & Time of Evaluation Date of Evaluation: 02/27/17 Time of Evaluation: 13:27 - Subjective Subjective: c/o left arm swelling for vascular study today? will need dialysis later still week, has moderate STEWART Objective - Vital Signs/Intake and Output Vital Signs (last 24 hours): Temp Pulse Resp BP Pulse Ox 97.9 F 62 20 158/71 H 98 02/27/17 08:06 02/27/17 08:06 02/27/17 08:06 02/27/17 08:06 02/27/17 08:06 - Medications Medications: Current Medications Acetaminophen (Tylenol 325mg Tab) 650 mg PO Q6 PRN PRN Reason: Pain, moderate (4-7) Last Admin: 02/26/17 17:47 Dose: 650 mg Albuterol (Ventolin Hfa 90 Mcg/Actuation (8 G)) 1 puff INH RQ6 PRN PRN Reason: Shortness of Breath Last Admin: 02/27/17 08:16 Dose: 1 puff Ergocalciferol (Drisdol 50,000 Intl Units Cap) 1 cap PO QWK [facility] Piperacillin Sod/Tazobactam Sod (Zosyn 2.25 Gm Iv Premix) 2.25 gm in 50 mls @ 200 mls/hr IVPB Q8H [facility] Last Admin: 02/27/17 11:11 Dose: 200 mls/hr Metoprolol Tartrate (Lopressor) 50 mg PO Q12 [facility] Last Admin: 02/27/17 11:10 Dose: 50 mg Fluticasone/Salmeterol (Advair Diskus 250/50) 1 puff INH Q12H [facility] Last Admin: 02/27/17 08:16 Dose: 1 puff Tamsulosin HCl (Flomax) 0.4 mg PO DAILY [facility] Last Admin: 02/27/17 11:03 Dose: Not Given Tiotropium [place] (Spiriva) 18 mcg INH RQD [facility] Last Admin: 02/27/17 08:16 Dose: 18 mcg Vitamin B Complex/Vit C/Folic Acid (Nephro-Anival) 1 tab PO DAILY [facility] Last Admin: 02/27/17 11:03 Dose: Not Given - Labs Labs: 02/26/17 08:36 02/26/17 08:36 PT 12.1 SECONDS (9.7-12.2) 02/25/17 17:47 INR 1.1 02/25/17 17:47 APTT 28 SECONDS (21-34) 02/25/17 17:47 - Constitutional Appears: No Acute Distress, Chronically Ill - Head Exam Head Exam: ATRAUMATIC, NORMAL INSPECTION - Eye Exam Eye Exam: EOMI, Normal appearance - Neck Exam Neck Exam: Normal Inspection. absent: Tenderness - Respiratory Exam Respiratory Exam: Clear to Ausculation Bilateral, NORMAL BREATHING PATTERN - Cardiovascular Exam Cardiovascular Exam: REGULAR RHYTHM, +S1 - GI/Abdominal Exam GI & Abdominal Exam: Soft. absent: Tenderness - Extremities Exam Extremities Exam: Normal Inspection. absent: Tenderness - Neurological Exam Neurological Exam: Alert, CN II-XII Intact - Skin Skin Exam: Dry, Warm Assessment and Plan (1) Arm bruise Status: Acute (2) Dialysis AV fistula malfunction Status: Acute (3) ESRD (end stage renal disease) on dialysis Status: Acute - Assessment and Plan (Free Text) Plan: IR eval dialysis MWF
[2017-02-27 15:55] LABS: BASO % 0.8 % (0.0-2.0); EOS # 0.3 K/uL (0.0-0.7); EOS % 8.1 % (0.0-4.0); HEMATOCRIT 30.9 % (35.0-51.0); LYMPH # 0.5 K/uL (1.0-4.3); LYMPH % 13.3 % (20.0-40.0); MEAN CELL VOLUME 91.2 fL (80.0-94.0); MEAN CORPUSCULAR HEMOGLOBIN 30.4 pg (27.0-31.0); MEAN CORPUSCULAR HGB CONC 33.3 g/dL (33.0-37.0); MEAN PLATELET VOLUME 9.3 fL (7.2-11.7); MONO # 0.3 K/uL (0.0-0.8); MONO % 8.5 % (0.0-10.0); NRBC % 0.1 % (0.0-2.0); RED CELL DISTRIBUTION WIDTH 17.7 % (11.5-14.5); WHITE BLOOD COUNT 3.9 K/uL (4.8-10.8)
[2017-02-27 16:12] LABS: POTASSIUM 5.3 mmol/L (3.6-5.2)
[2017-02-27 16:14] LABS: ALB/GLOB RATIO 1.5 (1.0-2.1); BILIRUBIN,TOTAL 0.9 mg/dL (0.2-1.3); PHOSPHOROUS 6.1 mg/dL (2.5-4.5); TOTAL PROTEIN 6.3 g/dL (6.3-8.3)
[2017-02-27 16:15] LABS: CALCIUM 8.7 mg/dl (8.6-10.4); MAGNESIUM 2.4 mg/dL (1.6-2.3)
[2017-02-28] MEDS: Piperacill/Tazo 2.25gm in Dex 2.25 GM/50 ML BAG IVPB SCH ×3 (01:32→17:09)
--- NOTE | 2017-02-28 07:41 | CP.PCM.PN ---
<Esteban Omalley - Last Filed: 02/28/17 18:53> Subjective - Date & Time of Evaluation Date of Evaluation: 02/28/17 Time of Evaluation: 07:40 - Subjective Subjective: PGY1 Note for Dr. Hawkins HPI: Patient seen and examined at bedside. Doing well with no complaints at this time. Fistulogram rescheduled for tomorrow. Complaining of rectal pain. Pain in arm has resolved. No SOB, N/V/D. Objective - Vital Signs/Intake and Output Vital Signs (last 24 hours): Temp Pulse Resp BP Pulse Ox 97.9 F 67 20 158/81 H 100 02/28/17 00:00 02/28/17 00:00 02/28/17 00:00 02/28/17 00:00 02/28/17 00:00 Intake and Output: 02/28/17 02/28/17 06:59 18:59 Intake Total 350 Balance 350 - Medications Medications: Current Medications Acetaminophen (Tylenol 325mg Tab) 650 mg PO Q6 PRN PRN Reason: Pain, moderate (4-7) Last Admin: 02/26/17 17:47 Dose: 650 mg Albuterol (Ventolin Hfa 90 Mcg/Actuation (8 G)) 1 puff INH RQ6 PRN PRN Reason: Shortness of Breath Last Admin: 02/27/17 08:16 Dose: 1 puff Ergocalciferol (Drisdol 50,000 Intl Units Cap) 1 cap PO QWK [facility] Piperacillin Sod/Tazobactam Sod (Zosyn 2.25 Gm Iv Premix) 2.25 gm in 50 mls @ 200 mls/hr IVPB Q8H [facility] Last Admin: 02/28/17 01:32 Dose: 200 mls/hr Metoprolol Tartrate (Lopressor) 50 mg PO Q12 [facility] Last Admin: 02/27/17 21:04 Dose: 50 mg Fluticasone/Salmeterol (Advair Diskus 250/50) 1 puff INH Q12H [facility] Last Admin: 02/27/17 20:32 Dose: 1 puff Tamsulosin HCl (Flomax) 0.4 mg PO DAILY [facility] Last Admin: 02/27/17 11:03 Dose: Not Given Tiotropium [place] (Spiriva) 18 mcg INH RQD [facility] Last Admin: 02/27/17 08:16 Dose: 18 mcg Vitamin B Complex/Vit C/Folic Acid (Nephro-Anival) 1 tab PO DAILY [facility] Last Admin: 02/27/17 11:03 Dose: Not Given - Labs Labs: 02/27/17 15:49 02/27/17 15:49 PT 12.1 SECONDS (9.7-12.2) 02/25/17 17:47 INR 1.1 02/25/17 17:47 APTT 28 SECONDS (21-34) 02/25/17 17:47 Assessment and Plan - Assessment and Plan (Free Text) Assessment: Malfunction AV site (L.Forearm) * Vascular Surgery (Dr. Reece) * AV Fistulogram tomorrow * Nephrology (Dr. Alegre) * Dialysis MWF Left Upper extremity swelling * Appears swollen, erythema, no open wounds * US: Cellulitis +/- abscess * Vancomycin 500mg IV X1 * Zosyn 2.25 IV Q 8 Shortness of breathe * Chest xray * interval improvement in the right lower lobe * Persistent focal opacity/infiltrate at the right lower lobe * Cardiomegaly and pulmonary vascular congestion * PRN albuterol * Advair 250/50 1 puff INH Q 12 * Spiriva 18mcg INH daily * Oxygen 2 Liter PRN Coccyydynia * Sacrum and Coccyx Xray * no evidence of acute fracture or subluxation. * Degenerative changes and osteophyte formation * "donut hole" type pillow to off load pain * Tylenol 650mg PO Q 6 H PRN * Ultram 25mg Q8 PRN History of Atrial fibrillation * Lopressor 50mg PO Q12H * HASBLED score = 3; correlates with 5.8% risk of major bleed- contraindication for anticoagulation * NADIRA score = 1 (no CHF, + HTN, does not meet age, not diabetic) * Echocardiogram: left ventricle systolic function is normal, EF:60-65%, diastolic dysfunction. Hypertension * Metoprolol 50 mg po BID Hyperlipidemia * Holding Statin for LDL less than 40 * Lipid panel: TG 162, Chol 178, LDL <30, HDL 27 Pancytopenia * Heme (Dr. Tony Brantley) * Prior history of lymphoma <Gaston Hawkins - Last Filed: 02/28/17 20:10> Objective - Vital Signs/Intake and Output Vital Signs (last 24 hours): Temp Pulse Resp BP Pulse Ox 98.1 F 68 20 146/81 97 02/28/17 16:00 02/28/17 16:00 02/28/17 16:00 02/28/17 16:00 02/28/17 16:00 Intake and Output: 02/28/17 03/01/17 18:59 06:59 Intake Total 250 Balance 250 - Medications Medications: Current Medications Acetaminophen (Tylenol 325mg Tab) 650 mg PO Q6 PRN PRN Reason: Pain, moderate (4-7) Last Admin: 02/26/17 17:47 Dose: 650 mg Albuterol (Ventolin Hfa 90 Mcg/Actuation (8 G)) 1 puff INH RQ6 PRN PRN Reason: Shortness of Breath Last Admin: 02/28/17 19:31 Dose: 1 puff Ergocalciferol (Drisdol 50,000 Intl Units Cap) 1 cap PO QWK [facility] Piperacillin Sod/Tazobactam Sod (Zosyn 2.25 Gm Iv Premix) 2.25 gm in 50 mls @ 200 mls/hr IVPB Q8H [facility] Last Admin: 02/28/17 17:09 Dose: 200 mls/hr Metoprolol Tartrate (Lopressor) 50 mg PO Q12 [facility] Last Admin: 02/28/17 10:58 Dose: 50 mg Rosuvastatin [place] (Crestor) 5 mg PO HS [facility] Fluticasone/Salmeterol (Advair Diskus 250/50) 1 puff INH Q12H [facility] Last Admin: 02/28/17 19:31 Dose: 1 puff Tamsulosin HCl (Flomax) 0.4 mg PO DAILY [facility] Last Admin: 02/28/17 10:58 Dose: 0.4 mg Tiotropium [place] (Spiriva) 18 mcg INH RQD [facility] Last Admin: 02/28/17 07:47 Dose: 18 mcg Tramadol HCl (Ultram) 25 mg PO Q8 PRN PRN Reason: Pain, severe (8-10) Last Admin: 02/28/17 15:10 Dose: 25 mg Vitamin B Complex/Vit C/Folic Acid (Nephro-Anival) 1 tab PO DAILY [facility] Last Admin: 02/28/17 10:58 Dose: 1 tab - Labs Labs: 02/28/17 12:17 02/28/17 12:17 PT 12.1 SECONDS (9.7-12.2) 02/25/17 17:47 INR 1.1 02/25/17 17:47 APTT 28 SECONDS (21-34) 02/25/17 17:47 Attending/Attestation - Attestation I have personally seen and examined this patient.: Yes I have fully participated in the care of the patient.: Yes I have reviewed all pertinent clinical information, including history, physical exam and plan: Yes Notes (Text): 02/28/17 20:05 Patient was seen and examined with resident Exam, Assessment and Plan were thoroughly gone over with the resident. Also on Exam: NO fluctuance noted on palpation of Coccyx, Perineum, Rectum Left Arm AVF thrill present and NOT present on Right ARM AVF Please also note the following: Blood culture on 02/25/17 showed Gram + Cocci. Patient already on Zosyn and this should cover him until the sesitivities are known. ID Dr. Jiménez consult has been placed for further recommendations. He will have Fistulogram of Right Arm done on 03/01/17 and will be followed by HD. Gaston Hawkins D.O.
[2017-02-28] MEDS: Fluticasone-Salmeterol 250-50mcg Diskus INH SCH ×2 (07:46→19:31)
[2017-02-28] MEDS: Albuterol HFA 90 mcg/actuation (8 g) INH PRN ×2 (07:47→19:31)
[2017-02-28] MEDS: Tiotropium 18 mcg Cap For Inhalation INH SCH (07:47)
--- NOTE | 2017-02-28 10:07 | CP.PCM.PN ---
Subjective - Date & Time of Evaluation Date of Evaluation: 02/28/17 Time of Evaluation: 10:05 - Subjective Subjective: seen and examined lue swelling unchanged c/o pain in coccyx region, unwilling for exam - asking for male doctor Objective - Vital Signs/Intake and Output Vital Signs (last 24 hours): Temp Pulse Resp BP Pulse Ox 97.5 F L 60 20 143/84 99 02/28/17 07:56 02/28/17 07:56 02/28/17 07:56 02/28/17 07:56 02/28/17 07:56 Intake and Output: 02/28/17 02/28/17 06:59 18:59 Intake Total 350 Balance 350 - Medications Medications: Current Medications Acetaminophen (Tylenol 325mg Tab) 650 mg PO Q6 PRN PRN Reason: Pain, moderate (4-7) Last Admin: 02/26/17 17:47 Dose: 650 mg Albuterol (Ventolin Hfa 90 Mcg/Actuation (8 G)) 1 puff INH RQ6 PRN PRN Reason: Shortness of Breath Last Admin: 02/28/17 07:47 Dose: 1 puff Ergocalciferol (Drisdol 50,000 Intl Units Cap) 1 cap PO QWK [facility] Piperacillin Sod/Tazobactam Sod (Zosyn 2.25 Gm Iv Premix) 2.25 gm in 50 mls @ 200 mls/hr IVPB Q8H [facility] Last Admin: 02/28/17 09:35 Dose: 200 mls/hr Metoprolol Tartrate (Lopressor) 50 mg PO Q12 [facility] Last Admin: 02/27/17 21:04 Dose: 50 mg Fluticasone/Salmeterol (Advair Diskus 250/50) 1 puff INH Q12H [facility] Last Admin: 02/28/17 07:46 Dose: 1 puff Tamsulosin HCl (Flomax) 0.4 mg PO DAILY [facility] Last Admin: 02/27/17 11:03 Dose: Not Given Tiotropium [place] (Spiriva) 18 mcg INH RQD [facility] Last Admin: 02/28/17 07:47 Dose: 18 mcg Vitamin B Complex/Vit C/Folic Acid (Nephro-Anival) 1 tab PO DAILY [facility] Last Admin: 02/27/17 11:03 Dose: Not Given - Labs Labs: 02/27/17 15:49 02/27/17 15:49 PT 12.1 SECONDS (9.7-12.2) 02/25/17 17:47 INR 1.1 02/25/17 17:47 APTT 28 SECONDS (21-34) 02/25/17 17:47 - Constitutional Appears: Non-toxic, No Acute Distress - Head Exam Head Exam: NORMAL INSPECTION - Eye Exam Eye Exam: Normal appearance - ENT Exam ENT Exam: Mucous Membranes Moist, Normal Exam - Neck Exam Neck Exam: Normal Inspection - Respiratory Exam Respiratory Exam: Clear to Ausculation Bilateral, NORMAL BREATHING PATTERN - Cardiovascular Exam Cardiovascular Exam: REGULAR RHYTHM - GI/Abdominal Exam GI & Abdominal Exam: Soft, Normal Bowel Sounds - Extremities Exam Extremities Exam: Normal Inspection (lue swelling, avf) Assessment and Plan (1) Arm swelling Status: Acute (2) AV fistula occlusion Status: Acute (3) Anemia Status: Acute (4) End-stage renal disease Status: Chronic (5) Hypertension Status: Chronic - Assessment and Plan (Free Text) Assessment: maintain hd mwf avf study and management per vascular antibiotics
[2017-02-28] MEDS: Multivitamin Vitamin B Complex (Nephro-Vite) Tab PO SCH (10:58)
[2017-02-28 12:27] LABS: BASO % 0.8 % (0.0-2.0); EOS # 0.4 K/uL (0.0-0.7); EOS % 7.7 % (0.0-4.0); HEMATOCRIT 36.6 % (35.0-51.0); LYMPH # 0.7 K/uL (1.0-4.3); LYMPH % 14.7 % (20.0-40.0); MEAN CELL VOLUME 92.1 fL (80.0-94.0); MEAN CORPUSCULAR HEMOGLOBIN 30.2 pg (27.0-31.0); MEAN CORPUSCULAR HGB CONC 32.8 g/dL (33.0-37.0); MEAN PLATELET VOLUME 9.9 fL (7.2-11.7); MONO # 0.4 K/uL (0.0-0.8); MONO % 7.4 % (0.0-10.0); NRBC % 0.1 % (0.0-2.0); RED CELL DISTRIBUTION WIDTH 18.1 % (11.5-14.5); WHITE BLOOD COUNT 4.9 K/uL (4.8-10.8)
[2017-02-28 12:47] LABS: POTASSIUM 4.7 mmol/L (3.6-5.2)
[2017-02-28 12:50] LABS: CALCIUM 9.2 mg/dl (8.6-10.4)
[2017-02-28] MEDS: Tramadol 25 mg PO PRN (15:10)
--- NOTE | 2017-02-28 15:23 | CP.PCM.PN ---
Subjective - Date & Time of Evaluation Date of Evaluation: 02/28/17 Time of Evaluation: 15:23 - Subjective Subjective: Vascular Surgery - Dr. Hill Patient's fistulogram rescheduled for tomorrow at 11 am due to scheduling conflict in vascular lab. Patient diet was reordered. NPO past midnight. Patient has no complaints. Objective - Vital Signs/Intake and Output Vital Signs (last 24 hours): Temp Pulse Resp BP Pulse Ox 97.5 F L 60 20 143/84 99 02/28/17 07:56 02/28/17 07:56 02/28/17 07:56 02/28/17 07:56 02/28/17 07:56 Intake and Output: 02/28/17 02/28/17 06:59 18:59 Intake Total 350 250 Balance 350 250 - Medications Medications: Current Medications Acetaminophen (Tylenol 325mg Tab) 650 mg PO Q6 PRN PRN Reason: Pain, moderate (4-7) Last Admin: 02/26/17 17:47 Dose: 650 mg Albuterol (Ventolin Hfa 90 Mcg/Actuation (8 G)) 1 puff INH RQ6 PRN PRN Reason: Shortness of Breath Last Admin: 02/28/17 07:47 Dose: 1 puff Ergocalciferol (Drisdol 50,000 Intl Units Cap) 1 cap PO QWK [facility] Piperacillin Sod/Tazobactam Sod (Zosyn 2.25 Gm Iv Premix) 2.25 gm in 50 mls @ 200 mls/hr IVPB Q8H [facility] Last Admin: 02/28/17 09:35 Dose: 200 mls/hr Metoprolol Tartrate (Lopressor) 50 mg PO Q12 [facility] Last Admin: 02/28/17 10:58 Dose: 50 mg Fluticasone/Salmeterol (Advair Diskus 250/50) 1 puff INH Q12H [facility] Last Admin: 02/28/17 07:46 Dose: 1 puff Tamsulosin HCl (Flomax) 0.4 mg PO DAILY [facility] Last Admin: 02/28/17 10:58 Dose: 0.4 mg Tiotropium [place] (Spiriva) 18 mcg INH RQD [facility] Last Admin: 02/28/17 07:47 Dose: 18 mcg Tramadol HCl (Ultram) 25 mg PO Q8 PRN PRN Reason: Pain, severe (8-10) Last Admin: 02/28/17 15:10 Dose: 25 mg Vitamin B Complex/Vit C/Folic Acid (Nephro-Anival) 1 tab PO DAILY [facility] Last Admin: 02/28/17 10:58 Dose: 1 tab - Labs Labs: 02/28/17 12:17 02/28/17 12:17 PT 12.1 SECONDS (9.7-12.2) 02/25/17 17:47 INR 1.1 02/25/17 17:47 APTT 28 SECONDS (21-34) 02/25/17 17:47
--- NOTE | 2017-02-28 22:38 | CARD ---
APPROVED REPORT EKG Measurement Heart [id number] IN [id number] [id number] <Conclusion> Normal sinus rhythm Left axis deviation Abnormal ECG
[2017-03-01] MEDS: Piperacill/Tazo 2.25gm in Dex 2.25 GM/50 ML BAG IVPB SCH ×3 (01:35→17:05)
--- NOTE | 2017-03-01 07:03 | CP.PCM.PN ---
<Esteban Omalley - Last Filed: 03/01/17 19:18> Subjective - Date & Time of Evaluation Date of Evaluation: 03/01/17 Time of Evaluation: 06:53 - Subjective Subjective: PGY1 Note for Dr. Hawkins HPI: Patient seen and examined at bedside. Still complaining of coccyx pain. No other complaints at this time. Denies N/V/D/C/F/Chills Objective - Vital Signs/Intake and Output Vital Signs (last 24 hours): Temp Pulse Resp BP Pulse Ox 97.6 F 60 20 157/93 H 100 03/01/17 00:00 03/01/17 00:00 03/01/17 00:00 03/01/17 00:00 03/01/17 00:00 Intake and Output: 02/28/17 03/01/17 18:59 06:59 Intake Total 250 400 Output Total 500 Balance 250 -100 - Medications Medications: Current Medications Acetaminophen (Tylenol 325mg Tab) 650 mg PO Q6 PRN PRN Reason: Pain, moderate (4-7) Last Admin: 02/26/17 17:47 Dose: 650 mg Albuterol (Ventolin Hfa 90 Mcg/Actuation (8 G)) 1 puff INH RQ6 PRN PRN Reason: Shortness of Breath Last Admin: 02/28/17 19:31 Dose: 1 puff Ergocalciferol (Drisdol 50,000 Intl Units Cap) 1 cap PO QWK [facility] Piperacillin Sod/Tazobactam Sod (Zosyn 2.25 Gm Iv Premix) 2.25 gm in 50 mls @ 200 mls/hr IVPB Q8H [facility] Last Admin: 03/01/17 01:35 Dose: 200 mls/hr Metoprolol Tartrate (Lopressor) 50 mg PO Q12 [facility] Last Admin: 02/28/17 21:31 Dose: 50 mg Rosuvastatin Calcium (Crestor) 5 mg PO HS [facility] Last Admin: 02/28/17 22:26 Dose: 5 mg Fluticasone/Salmeterol (Advair Diskus 250/50) 1 puff INH Q12H [facility] Last Admin: 02/28/17 19:31 Dose: 1 puff Tamsulosin HCl (Flomax) 0.4 mg PO DAILY [facility] Last Admin: 02/28/17 10:58 Dose: 0.4 mg Tiotropium [place] (Spiriva) 18 mcg INH RQD [facility] Last Admin: 02/28/17 07:47 Dose: 18 mcg Tramadol HCl (Ultram) 25 mg PO Q8 PRN PRN Reason: Pain, severe (8-10) Last Admin: 02/28/17 15:10 Dose: 25 mg Vitamin B Complex/Vit C/Folic Acid (Nephro-Anival) 1 tab PO DAILY [facility] Last Admin: 02/28/17 10:58 Dose: 1 tab - Labs Labs: 02/28/17 12:17 02/28/17 12:17 PT 12.1 SECONDS (9.7-12.2) 02/25/17 17:47 INR 1.1 02/25/17 17:47 APTT 28 SECONDS (21-34) 02/25/17 17:47 - Constitutional Appears: Well, Non-toxic, No Acute Distress - Head Exam Head Exam: ATRAUMATIC, NORMAL INSPECTION, NORMOCEPHALIC - Eye Exam Eye Exam: EOMI - ENT Exam ENT Exam: Mucous Membranes Moist - Respiratory Exam Respiratory Exam: Clear to Ausculation Bilateral, Wheezes, NORMAL BREATHING PATTERN - Cardiovascular Exam Cardiovascular Exam: REGULAR RHYTHM - GI/Abdominal Exam GI & Abdominal Exam: Soft, Normal Bowel Sounds. absent: Distended, Tenderness - Extremities Exam Extremities Exam: absent: Joint Swelling, Tenderness Additional comments: R. arm less red. Was less swollen this am. After fistulogram today looks much more swollen. Fistula thrill palpated and ausculated both distally and proximally - Neurological Exam Neurological Exam: Alert, Awake, Oriented x3 - Psychiatric Exam Psychiatric exam: Normal Affect, Normal Mood - Skin Skin Exam: Dry, Intact, Normal Color, Warm Assessment and Plan - Assessment and Plan (Free Text) Assessment: Malfunction AV site (L.Forearm) * Vascular Surgery (Dr. Reece) * AV Fistulogram showed central vv stenosis. Angioplasty was performed. Ok to resume dialysis per Dr. Altman * Nephrology (Dr. Alegre) * Dialysis MWF Left Upper extremity swelling * Appears swollen, erythema, no open wounds * US: Cellulitis +/- abscess * Zosyn 2.25 IV Q 8 * Bacteremia - Gram + Cocci, repeat BC showed coag negative staph * Blood cultures * ID (Suzette) * Vanco 1g MWF with dialysis Shortness of breathe * Chest xray * interval improvement in the right lower lobe * Persistent focal opacity/infiltrate at the right lower lobe * Cardiomegaly and pulmonary vascular congestion * PRN albuterol * Advair 250/50 1 puff INH Q 12 * Spiriva 18mcg INH daily * Oxygen 2 Liter PRN Coccyydynia * Sacrum and Coccyx Xray * no evidence of acute fracture or subluxation. * Degenerative changes and osteophyte formation * they dont make donut hole pillows any more according to nurse. Will write for one so he can purchase as an outpatient. In the mean time will tell him to offload by moving positions and will control pain. Ordered a bedside camode so he can sit up without pressure on his coccyx if he would like * Tylenol 650mg PO Q 6 H PRN * Ultram 25mg Q8 PRN History of Atrial fibrillation * Lopressor 50mg PO Q12H * HASBLED score = 3; correlates with 5.8% risk of major bleed- contraindication for anticoagulation * NADIRA score = 1 (no CHF, + HTN, does not meet age, not diabetic) * Echocardiogram: left ventricle systolic function is normal, EF:60-65%, diastolic dysfunction. Hypertension * Metoprolol 50 mg po BID Hyperlipidemia * Holding Statin for LDL less than 40 * Lipid panel: TG 162, Chol 178, LDL <30, HDL 27 Pancytopenia * Heme (Dr. Tony Brantley) * Prior history of lymphoma <Gaston Hawkins - Last Filed: 03/01/17 20:39> Objective - Vital Signs/Intake and Output Vital Signs (last 24 hours): Temp Pulse Resp BP Pulse Ox 97.3 F L 72 15 150/85 96 03/01/17 18:40 03/01/17 20:00 03/01/17 20:00 03/01/17 20:00 03/01/17 20:00 Intake and Output: 03/01/17 03/02/17 18:59 06:59 Intake Total 50 Balance 50 - Medications Medications: Current Medications Acetaminophen (Tylenol 325mg Tab) 650 mg PO Q6 PRN PRN Reason: Pain, moderate (4-7) Last Admin: 03/01/17 20:09 Dose: 650 mg Albuterol (Ventolin Hfa 90 Mcg/Actuation (8 G)) 1 puff INH RQ6 PRN PRN Reason: Shortness of Breath Last Admin: 03/01/17 07:28 Dose: 1 puff Ergocalciferol (Drisdol 50,000 Intl Units Cap) 1 cap PO QWK [facility] Piperacillin Sod/Tazobactam Sod (Zosyn 2.25 Gm Iv Premix) 2.25 gm in 50 mls @ 200 mls/hr IVPB Q8H [facility] Last Admin: 03/01/17 17:05 Dose: 200 mls/hr Vancomycin/Sodium Chloride (Vancocin) 1 gm in 200 mls @ 167 mls/hr IVPB MWF ONE Stop: 03/03/17 10:11 Losartan Potassium (Cozaar) 100 mg PO DAILY [facility] Metoprolol Tartrate (Lopressor) 50 mg PO Q12 [facility] Last Admin: 03/01/17 10:00 Dose: Not Given Rosuvastatin Calcium (Crestor) 5 mg PO HS [facility] Last Admin: 02/28/17 22:26 Dose: 5 mg Fluticasone/Salmeterol (Advair Diskus 250/50) 1 puff INH Q12H [facility] Last Admin: 03/01/17 07:27 Dose: 1 puff Tamsulosin HCl (Flomax) 0.4 mg PO DAILY [facility] Last Admin: 03/01/17 10:00 Dose: Not Given Tiotropium [place] (Spiriva) 18 mcg INH RQD [facility] Last Admin: 03/01/17 07:27 Dose: 18 mcg Tramadol HCl (Ultram) 25 mg PO Q8 PRN PRN Reason: Pain, severe (8-10) Last Admin: 02/28/17 15:10 Dose: 25 mg Vitamin B Complex/Vit C/Folic Acid (Nephro-Anival) 1 tab PO DAILY [facility] Last Admin: 03/01/17 10:00 Dose: Not Given - Labs Labs: 03/01/17 07:20 03/01/17 07:20 PT 12.1 SECONDS (9.7-12.2) 02/25/17 17:47 INR 1.1 02/25/17 17:47 APTT 28 SECONDS (21-34) 02/25/17 17:47 Attending/Attestation - Attestation I have personally seen and examined this patient.: Yes I have fully participated in the care of the patient.: Yes I have reviewed all pertinent clinical information, including history, physical exam and plan: Yes Notes (Text): 03/01/17 20:38 Patient was seen and examined with the resident while he was having HD. Exam, Assessment and Plan were thoroughly gone over with the Resident. Gaston Hawkins D.O.
[2017-03-01] MEDS: Fluticasone-Salmeterol 250-50mcg Diskus INH SCH ×2 (07:27→21:00)
[2017-03-01] MEDS: Tiotropium 18 mcg Cap For Inhalation INH SCH (07:27)
[2017-03-01] MEDS: Albuterol HFA 90 mcg/actuation (8 g) INH PRN ×2 (07:28→21:00)
[2017-03-01 07:40] LABS: BASO % 0.9 % (0.0-2.0); EOS # 0.4 K/uL (0.0-0.7); EOS % 8.8 % (0.0-4.0); HEMATOCRIT 34.6 % (35.0-51.0); LYMPH # 0.7 K/uL (1.0-4.3); LYMPH % 15.6 % (20.0-40.0); MEAN CELL VOLUME 92.5 fL (80.0-94.0); MEAN CORPUSCULAR HEMOGLOBIN 30.4 pg (27.0-31.0); MEAN CORPUSCULAR HGB CONC 32.9 g/dL (33.0-37.0); MEAN PLATELET VOLUME 10.5 fL (7.2-11.7); MONO # 0.4 K/uL (0.0-0.8); MONO % 8.4 % (0.0-10.0); RED CELL DISTRIBUTION WIDTH 17.8 % (11.5-14.5); WHITE BLOOD COUNT 4.7 K/uL (4.8-10.8)
[2017-03-01 08:08] LABS: CALCIUM 8.7 mg/dl (8.6-10.4)
[2017-03-01] MEDS: Multivitamin Vitamin B Complex (Nephro-Vite) Tab PO SCH (10:00)
[2017-03-01] MEDS ORDERED: Midazolam 2 MG/2 ML VIAL ONE (14:07)
[2017-03-01] MEDS ORDERED: Vancomycin 1 g Inj ONE (14:39)
--- NOTE | 2017-03-01 14:45 | CP.PCM.PN ---
Subjective - Date & Time of Evaluation Date of Evaluation: 03/01/17 Time of Evaluation: 14:43 - Subjective Subjective: Went for fistulagram now previously arm was swollen, also c/o rectal pains dialysis course has been stable- due for later today HTN still uncontrolled- will add losartan Objective - Vital Signs/Intake and Output Vital Signs (last 24 hours): Temp Pulse Resp BP Pulse Ox 97.4 F L 67 20 173/78 H 97 03/01/17 08:00 03/01/17 08:00 03/01/17 08:00 03/01/17 08:00 03/01/17 08:00 Intake and Output: 03/01/17 03/01/17 06:59 18:59 Intake Total 700 Output Total 500 Balance 200 - Medications Medications: Current Medications Acetaminophen (Tylenol 325mg Tab) 650 mg PO Q6 PRN PRN Reason: Pain, moderate (4-7) Last Admin: 02/26/17 17:47 Dose: 650 mg Albuterol (Ventolin Hfa 90 Mcg/Actuation (8 G)) 1 puff INH RQ6 PRN PRN Reason: Shortness of Breath Last Admin: 03/01/17 07:28 Dose: 1 puff Ergocalciferol (Drisdol 50,000 Intl Units Cap) 1 cap PO QWK [facility] Piperacillin Sod/Tazobactam Sod (Zosyn 2.25 Gm Iv Premix) 2.25 gm in 50 mls @ 200 mls/hr IVPB Q8H [facility] Last Admin: 03/01/17 10:21 Dose: 200 mls/hr Losartan Potassium (Cozaar) 100 mg PO DAILY [facility] Metoprolol Tartrate (Lopressor) 50 mg PO Q12 [facility] Last Admin: 03/01/17 10:00 Dose: Not Given Rosuvastatin Calcium (Crestor) 5 mg PO HS [facility] Last Admin: 02/28/17 22:26 Dose: 5 mg Fluticasone/Salmeterol (Advair Diskus 250/50) 1 puff INH Q12H [facility] Last Admin: 03/01/17 07:27 Dose: 1 puff Tamsulosin HCl (Flomax) 0.4 mg PO DAILY [facility] Last Admin: 03/01/17 10:00 Dose: Not Given Tiotropium [place] (Spiriva) 18 mcg INH RQD [facility] Last Admin: 03/01/17 07:27 Dose: 18 mcg Tramadol HCl (Ultram) 25 mg PO Q8 PRN PRN Reason: Pain, severe (8-10) Last Admin: 02/28/17 15:10 Dose: 25 mg Vitamin B Complex/Vit C/Folic Acid (Nephro-Anival) 1 tab PO DAILY [facility] Last Admin: 03/01/17 10:00 Dose: Not Given - Labs Labs: 03/01/17 07:20 03/01/17 07:20 PT 12.1 SECONDS (9.7-12.2) 02/25/17 17:47 INR 1.1 02/25/17 17:47 APTT 28 SECONDS (21-34) 02/25/17 17:47 - Constitutional Appears: No Acute Distress, Chronically Ill - Head Exam Head Exam: ATRAUMATIC, NORMAL INSPECTION - Eye Exam Eye Exam: EOMI, Normal appearance - Neck Exam Neck Exam: Normal Inspection. absent: Tenderness - Respiratory Exam Respiratory Exam: Clear to Ausculation Bilateral, NORMAL BREATHING PATTERN - Cardiovascular Exam Cardiovascular Exam: REGULAR RHYTHM, +S1 - GI/Abdominal Exam GI & Abdominal Exam: Soft. absent: Tenderness - Extremities Exam Extremities Exam: Normal Inspection, Tenderness - Neurological Exam Neurological Exam: Alert, CN II-XII Intact - Skin Skin Exam: Dry, Warm Assessment and Plan (1) Arm bruise Status: Acute (2) Dialysis AV fistula malfunction Status: Acute (3) ESRD (end stage renal disease) on dialysis Status: Acute - Assessment and Plan (Free Text) Plan: Fistulogram now dialysis later increase BP meds
[2017-03-01] MEDS ORDERED: Iodixanol 320 MG/ML 100 ML BOTTLE IV ONE (14:48)
--- NOTE | 2017-03-01 15:20 | PCM.SURG1 ---
Surgeon's Initial Post Op Note - Surgeon's Notes Surgeon: Dr. 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
--- NOTE | 2017-03-01 18:30 | CP.PCM.CON ---
History of Present Illness - History of Present Illness History of Present Illness: dictated Past Patient History - Infectious Disease Hx of Infectious Diseases: None - Past Medical History & Family History Past Medical History?: Yes - Past Social History Smoking Status: Former Smoker - CARDIAC Hx Hypercholesterolemia: Yes Hx Hypertension: Yes - PULMONARY Hx Chronic Obstructive Pulmonary Disease (COPD): Yes - NEUROLOGICAL Hx Neurological Disorder: No - HEENT Hx HEENT Problems: No - RENAL Hx Chronic Kidney Disease: Yes Date of Last Dialysis Treatment: 02/24/17 Hx Kidney Stones: Yes (rt kidney) - ENDOCRINE/METABOLIC Hx Endocrine Disorders: No - HEMATOLOGICAL/ONCOLOGICAL Hx Anemia: Yes - INTEGUMENTARY Hx Dermatological Problems: No - MUSCULOSKELETAL/RHEUMATOLOGICAL Hx Arthritis: Yes (BACK) - GASTROINTESTINAL Hx Gastrointestinal Disorders: Yes Other/Comment: chronic constipation - GENITOURINARY/GYNECOLOGICAL Hx Genitourinary Disorders: Yes Hx Prostate Cancer: No Hx Prostate Problems: Yes (hx of turp) - PSYCHIATRIC Hx Substance Use: No - SURGICAL HISTORY Hx Surgeries: Yes Hx Arteriovenous Shunt: Yes (right upper arm) Hx Vascular Access Device: Yes (right upper arm) Other/Comment: Prostate sx - ANESTHESIA Hx Anesthesia: Yes Hx Anesthesia Reactions: No Hx Malignant Hyperthermia: No Has any member of the family had a problem w/ anesthesia?: No Meds Allergies/Adverse Reactions: Allergies Allergy/AdvReac Type Severity Reaction Status Date / Time No Known Allergies Allergy Verified 02/25/17 11:22 - Medications Medications: Current Medications Acetaminophen (Tylenol 325mg Tab) 650 mg PO Q6 PRN PRN Reason: Pain, moderate (4-7) Last Admin: 02/26/17 17:47 Dose: 650 mg Albuterol (Ventolin Hfa 90 Mcg/Actuation (8 G)) 1 puff INH RQ6 PRN PRN Reason: Shortness of Breath Last Admin: 03/01/17 07:28 Dose: 1 puff Ergocalciferol (Drisdol 50,000 Intl Units Cap) 1 cap PO QWK [facility] Piperacillin Sod/Tazobactam Sod (Zosyn 2.25 Gm Iv Premix) 2.25 gm in 50 mls @ 200 mls/hr IVPB Q8H [facility] Last Admin: 03/01/17 17:05 Dose: 200 mls/hr Vancomycin HCl (Vancomycin 1gm In Normal Saline Addvantage) 1 gm in 250 mls @ 167 mls/hr IVPB MWF STA Stop: 03/01/17 19:57 Losartan Potassium (Cozaar) 100 mg PO DAILY [facility] Metoprolol Tartrate (Lopressor) 50 mg PO Q12 [facility] Last Admin: 03/01/17 10:00 Dose: Not Given Rosuvastatin Calcium (Crestor) 5 mg PO HS [facility] Last Admin: 02/28/17 22:26 Dose: 5 mg Fluticasone/Salmeterol (Advair Diskus 250/50) 1 puff INH Q12H [facility] Last Admin: 03/01/17 07:27 Dose: 1 puff Tamsulosin HCl (Flomax) 0.4 mg PO DAILY [facility] Last Admin: 03/01/17 10:00 Dose: Not Given Tiotropium [place] (Spiriva) 18 mcg INH RQD [facility] Last Admin: 03/01/17 07:27 Dose: 18 mcg Tramadol HCl (Ultram) 25 mg PO Q8 PRN PRN Reason: Pain, severe (8-10) Last Admin: 02/28/17 15:10 Dose: 25 mg Vitamin B Complex/Vit C/Folic Acid (Nephro-Anival) 1 tab PO DAILY [facility] Last Admin: 03/01/17 10:00 Dose: Not Given Results - Vital Signs Recent Vital Signs: Last Vital Signs Temp 97.6 F 03/01/17 17:00 Pulse 70 03/01/17 17:00 Resp 20 03/01/17 17:00 BP 201/72 H 03/01/17 17:00 Pulse Ox 96 03/01/17 17:00 - Labs Result Diagrams: 03/01/17 07:20 03/01/17 07:20 Labs: Laboratory Results - last 24 hr 03/01/17 03/01/17 07:20 07:20 WBC 4.7 L RBC 3.74 L Hgb 11.4 L Hct 34.6 L MCV 92.5 MCH 30.4 MCHC 32.9 L RDW 17.8 H Plt Count 94 L MPV 10.5 Neut % (Auto) 66.3 Lymph % (Auto) 15.6 L [place] % (Auto) 8.4 Eos % (Auto) 8.8 H Baso % (Auto) 0.9 Neut # 3.1 Lymph # 0.7 L [place] # 0.4 Eos # 0.4 Baso # 0.0 Sodium 139 Potassium 5.0 Chloride 97 L Carbon Dioxide 26 Anion Gap 21 H BUN 56 H Creatinine 9.1 H* Est GFR ( Amer) 7 Est GFR (Non-Af Amer) 6 Random Glucose 79 Calcium 8.7
[2017-03-01] MEDS ORDERED: Vancomycin 1 GM 1 GM/250 ML BAG IVPB ONE (19:00)
[2017-03-02] MEDS: Piperacill/Tazo 2.25gm in Dex 2.25 GM/50 ML BAG IVPB SCH ×3 (01:22→16:52)
--- NOTE | 2017-03-02 07:35 | OP ---
PREOPERATIVE DIAGNOSIS: Suspected central vein stenosis. POSTOPERATIVE DIAGNOSIS: Suspected central vein stenosis. PROCEDURES CARRIED OUT: Fistulogram left arm, balloon angioplasty of central vein stenosis. SURGEON: Anselmo Altman MD DIRECTOR COLLEGE: Dr. Randall. ANESTHESIOLOGIST: Mr. Amrik Silva CRNA INDICATIONS: The patient is a 61-year-old man, on dialysis and left forearm shunt. The patient previously had central catheters. He presented now with increased swelling in the arm. OPERATIVE FINDINGS: Perianastomotic area is free of significant occlusive disease. The axillary, subclavian, and innominate vessels were widely patent except on the junction of the left innominate to the right innominate. There was previously placed stent in the right supraclavicular region. Subsequent to the performance of the diagnostic fistulogram, a stiff-angled guidewire was advanced over the area of stenosis and subsequently changed for an Amplatz wire. This was then dilated with 10 mm balloon after the appropriate sheath had been obtained. We did not dilate it further as the subsequent pictures appeared to be improvement. that this may require further intervention in the future. Pressure was then applied to the site as well as the small skin sutures. The operation carried out is fistulogram, left arm and balloon angioplasty of an innominate vein, left side. Anselmo Altman Jr., MD
[2017-03-02] MEDS: Tiotropium 18 mcg Cap For Inhalation INH SCH (08:27)
[2017-03-02 08:56] LABS: BASO % 0.8 % (0.0-2.0); EOS # 0.3 K/uL (0.0-0.7); EOS % 6.7 % (0.0-4.0); HEMATOCRIT 34.3 % (35.0-51.0); LYMPH # 0.7 K/uL (1.0-4.3); LYMPH % 14.5 % (20.0-40.0); MEAN CELL VOLUME 91.1 fL (80.0-94.0); MEAN CORPUSCULAR HEMOGLOBIN 29.9 pg (27.0-31.0); MEAN CORPUSCULAR HGB CONC 32.9 g/dL (33.0-37.0); MEAN PLATELET VOLUME 9.5 fL (7.2-11.7); MONO # 0.4 K/uL (0.0-0.8); MONO % 7.9 % (0.0-10.0); NRBC % 0.1 % (0.0-2.0); RED CELL DISTRIBUTION WIDTH 17.7 % (11.5-14.5); WHITE BLOOD COUNT 4.7 K/uL (4.8-10.8)
--- NOTE | 2017-03-02 09:29 | CON ---
DATE: HISTORY OF PRESENT ILLNESS: The patient was seen when he was on dialysis. I was called yesterday that his cultures are positive. He got a dose of vancomycin and gentamicin. The patient is a 61-year-old male. He has been on dialysis since 2014. History of lymphoma, was treated in 2010. He has hypertension, BPH, and came in with 10 days of left arm swelling and erythema had on the left AV fistula. He also has been having coccygeal pain, as 10 days back he saw Dr. Vann who gave him medicine and x-ray if pain did not subside, and he has been having this. He also complains of shortness of breath when he walks six to seven blocks or a flight of stairs and those were his complaints when he came in. He had left arm fistulogram and has been found to have a central venous stenosis and Dr. Gaston Hawkins called Dr. Altman and is going to follow up with him again tomorrow and we are going to give vancomycin today. PAST MEDICAL HISTORY: Hypertension, end-stage renal disease, he has history of lymphoma, and BPH. PAST SURGICAL HISTORY: History of kidney stones in 1998, left arm fistula, and left Port-A-Cath. FAMILY HISTORY: Mother and father having hypertension and diabetes. SOCIAL HISTORY: He stopped smoking 17 years ago, before smoked three packs per day for 30 years. Denies alcohol and drug abuse. Not working. Lives alone. REVIEW OF SYSTEMS: On admission, he denied any fevers but he says may be off and on, he was not specific about it. He denies any weakness. Denies any ear, nose, and throat problems. Denies any chest pain. He does have some cough and dyspnea on exertion. No abdominal pain or bloating. No nausea and no vomiting. He is on dialysis. He does not make any urine looks like and no joint pains reported. He does have coccyalgia and has no neurological and no psychiatric problems. He does have a history of atrial fibrillation, high cholesterol, and hypertension. He also has a history of COPD. He has no neurological problems. He does not have any HEENT problems. He does have renal problems, kidney stones, end-stage renal disease, and anemia. He has skin problems, and has no history of fall. He does have knee problems. Gastrointestinal: He has constipation. Genitourinary: He has history of prostate problems and had TURP done in the past. No substance abuse reported. Surgical history is positive for left arm AV fistula and he has right upper arm vascular access. ALLERGIES: HE IS NOT ALLERGIC TO ANY MEDICINE. MEDICATIONS: He is on albuterol, ergocalciferol, losartan, metoprolol, he is on Zosyn, he is on vancomycin, Crestor, he is on Advair, fluticasone, he is on tamsulosin, Ultram for his back pain, vancomycin, and B-complex. PHYSICAL EXAMINATION: GENERAL: He is alert and oriented x3. VITAL SIGNS: On examination, temperature is 97.3, pulse is 77, blood pressure is 146/83, and respirations are 20. HEENT: Head is atraumatic. Pupils are reactive to light. Eye movements are unremarkable. NECK: Supple. JVP is flat. LUNGS: Clear. No crackles or rales present. HEART: S1 and S2 regular. ABDOMEN: Soft and nontender. No guarding and no rigidity present. EXTREMITIES: Left extremities have no edema, clubbing, or cyanosis. Left arm has mild swelling at the site of the fistula and arm looks almost bruised. IMPRESSION AND PLAN: Blood culture came out positive. Blood culture shows coagulase-negative Staphylococcus, one set, the other set is negative. We are repeating the cultures again today on dialysis and the patient is on antibiotics and we will follow with Dr. Altman. Levon Bradford MD cc: Levon Bradford MD
--- NOTE | 2017-03-02 09:35 | CP.PCM.PN ---
Subjective - Date & Time of Evaluation Date of Evaluation: 03/02/17 Time of Evaluation: 09:34 - Subjective Subjective: seen and examined s/p angioplasty, arm still swollen, oozing clear fluid coag neg staph x 1 blood cultures, started on vancomycin Objective - Vital Signs/Intake and Output Vital Signs (last 24 hours): Temp Pulse Resp BP Pulse Ox 97.9 F 69 20 148/87 96 03/02/17 07:27 03/02/17 07:27 03/02/17 07:27 03/02/17 07:27 03/02/17 07:27 Intake and Output: 03/02/17 03/02/17 06:59 18:59 Intake Total 290 Balance 290 - Medications Medications: Current Medications Acetaminophen (Tylenol 325mg Tab) 650 mg PO Q6 PRN PRN Reason: Pain, moderate (4-7) Last Admin: 03/01/17 20:09 Dose: 650 mg Albuterol (Ventolin Hfa 90 Mcg/Actuation (8 G)) 1 puff INH RQ6 PRN PRN Reason: Shortness of Breath Last Admin: 03/01/17 21:00 Dose: 1 puff Ergocalciferol (Drisdol 50,000 Intl Units Cap) 1 cap PO QWK [facility] Piperacillin Sod/Tazobactam Sod (Zosyn 2.25 Gm Iv Premix) 2.25 gm in 50 mls @ 200 mls/hr IVPB Q8H [facility] Last Admin: 03/02/17 01:22 Dose: 200 mls/hr Vancomycin/Sodium Chloride (Vancocin) 1 gm in 200 mls @ 167 mls/hr IVPB MWF ONE Stop: 03/03/17 10:11 Losartan Potassium (Cozaar) 100 mg PO DAILY [facility] Metoprolol Tartrate (Lopressor) 50 mg PO Q12 [facility] Last Admin: 03/01/17 22:43 Dose: 50 mg Rosuvastatin Calcium (Crestor) 5 mg PO HS [facility] Last Admin: 03/01/17 22:43 Dose: 5 mg Fluticasone/Salmeterol (Advair Diskus 250/50) 1 puff INH Q12H [facility] Last Admin: 03/01/17 21:00 Dose: 1 puff Tamsulosin HCl (Flomax) 0.4 mg PO DAILY [facility] Last Admin: 03/01/17 10:00 Dose: Not Given Tiotropium [place] (Spiriva) 18 mcg INH RQD [facility] Last Admin: 03/02/17 08:27 Dose: Not Given Tramadol HCl (Ultram) 25 mg PO Q8 PRN PRN Reason: Pain, severe (8-10) Last Admin: 02/28/17 15:10 Dose: 25 mg Vitamin B Complex/Vit C/Folic Acid (Nephro-Anival) 1 tab PO DAILY [facility] Last Admin: 03/01/17 10:00 Dose: Not Given - Labs Labs: 03/02/17 08:47 03/02/17 08:47 PT 12.1 SECONDS (9.7-12.2) 02/25/17 17:47 INR 1.1 02/25/17 17:47 APTT 28 SECONDS (21-34) 02/25/17 17:47 - Constitutional Appears: Non-toxic, No Acute Distress, Chronically Ill - Head Exam Head Exam: NORMAL INSPECTION - Eye Exam Eye Exam: Normal appearance - ENT Exam ENT Exam: Mucous Membranes Moist, Normal Exam - Neck Exam Neck Exam: Normal Inspection - Respiratory Exam Respiratory Exam: Clear to Ausculation Bilateral, NORMAL BREATHING PATTERN - Cardiovascular Exam Cardiovascular Exam: REGULAR RHYTHM, RRR - GI/Abdominal Exam GI & Abdominal Exam: Distended, Soft, Normal Bowel Sounds - Extremities Exam Extremities Exam: Normal Inspection Additional comments: lue avf w/ swelling, bruising. oozing clear fluid Assessment and Plan (1) Arm swelling Status: Acute (2) AV fistula occlusion Status: Acute (3) Anemia Status: Acute (4) End-stage renal disease Status: Chronic (5) Hypertension Status: Chronic - Assessment and Plan (Free Text) Assessment: maintain hd mwf repeat blood cultures bp controlled
[2017-03-02] MEDS: Multivitamin Vitamin B Complex (Nephro-Vite) Tab PO SCH (10:43)
[2017-03-02] MEDS: Tramadol 25 mg PO PRN (10:48)
--- NOTE | 2017-03-02 13:23 | CP.PCM.PN ---
<Esteban Omalley - Last Filed: 03/02/17 18:39> Subjective - Date & Time of Evaluation Date of Evaluation: 03/02/17 Time of Evaluation: 13:17 - Subjective Subjective: PGY1 Note for Dr. Hawkins HPI: Patient seen and examined at bedside. Doing well. Still complaining of coccyx pain. Went for dialysis yesterday. Not complaining of any pain in arm. No fever, diarrhea, N/V, chills. Objective - Vital Signs/Intake and Output Vital Signs (last 24 hours): Temp Pulse Resp BP Pulse Ox 97.9 F 69 20 148/87 96 03/02/17 07:27 03/02/17 07:27 03/02/17 07:27 03/02/17 07:27 03/02/17 07:27 Intake and Output: 03/02/17 03/02/17 06:59 18:59 Intake Total 290 Balance 290 - Medications Medications: Current Medications Acetaminophen (Tylenol 325mg Tab) 650 mg PO Q6 PRN PRN Reason: Pain, moderate (4-7) Last Admin: 03/01/17 20:09 Dose: 650 mg Albuterol (Ventolin Hfa 90 Mcg/Actuation (8 G)) 1 puff INH RQ6 PRN PRN Reason: Shortness of Breath Last Admin: 03/01/17 21:00 Dose: 1 puff Ergocalciferol (Drisdol 50,000 Intl Units Cap) 1 cap PO QWK [facility] Piperacillin Sod/Tazobactam Sod (Zosyn 2.25 Gm Iv Premix) 2.25 gm in 50 mls @ 200 mls/hr IVPB Q8H [facility] Last Admin: 03/02/17 10:42 Dose: 200 mls/hr Vancomycin/Sodium Chloride (Vancocin) 1 gm in 200 mls @ 167 mls/hr IVPB MWF ONE Stop: 03/03/17 10:11 Losartan Potassium (Cozaar) 100 mg PO DAILY [facility] Last Admin: 03/02/17 10:43 Dose: 100 mg Metoprolol Tartrate (Lopressor) 50 mg PO Q12 [facility] Last Admin: 03/02/17 10:49 Dose: 50 mg Rosuvastatin Calcium (Crestor) 5 mg PO HS [facility] Last Admin: 03/01/17 22:43 Dose: 5 mg Fluticasone/Salmeterol (Advair Diskus 250/50) 1 puff INH Q12H [facility] Last Admin: 03/01/17 21:00 Dose: 1 puff Tamsulosin HCl (Flomax) 0.4 mg PO DAILY [facility] Last Admin: 03/02/17 10:49 Dose: 0.4 mg Tiotropium [place] (Spiriva) 18 mcg INH RQD [facility] Last Admin: 03/02/17 08:27 Dose: Not Given Tramadol HCl (Ultram) 25 mg PO Q8 PRN PRN Reason: Pain, severe (8-10) Last Admin: 03/02/17 10:48 Dose: 25 mg Vitamin B Complex/Vit C/Folic Acid (Nephro-Anival) 1 tab PO DAILY [facility] Last Admin: 03/02/17 10:43 Dose: 1 tab - Labs Labs: 03/02/17 08:47 03/02/17 08:47 PT 12.1 SECONDS (9.7-12.2) 02/25/17 17:47 INR 1.1 02/25/17 17:47 APTT 28 SECONDS (21-34) 02/25/17 17:47 - Constitutional Appears: Well, Non-toxic, No Acute Distress - Head Exam Head Exam: ATRAUMATIC, NORMAL INSPECTION, NORMOCEPHALIC - Eye Exam Eye Exam: EOMI Pupil Exam: NORMAL ACCOMODATION - ENT Exam ENT Exam: Mucous Membranes Moist - Respiratory Exam Respiratory Exam: Clear to Ausculation Bilateral, NORMAL BREATHING PATTERN - Cardiovascular Exam Cardiovascular Exam: REGULAR RHYTHM - GI/Abdominal Exam GI & Abdominal Exam: Soft, Normal Bowel Sounds. absent: Distended, Tenderness - Extremities Exam Extremities Exam: Joint Swelling. absent: Tenderness Additional comments: swelling in R. arm over fistula with tense bullae - Neurological Exam Neurological Exam: Alert, Awake, Oriented x3 - Psychiatric Exam Psychiatric exam: Normal Affect, Normal Mood - Skin Skin Exam: Dry, Intact, Normal Color, Warm Assessment and Plan - Assessment and Plan (Free Text) Assessment: Malfunction AV site (L.Forearm) * Vascular Surgery (Dr. Reece) * AV Fistulogram showed central vv stenosis. Angioplasty was performed. Ok to resume dialysis per Dr. Altman * Nephrology (Dr. Alegre) * Dialysis MWF Left Upper extremity swelling * Appears swollen, erythema, no open wounds * US: Cellulitis +/- abscess * Zosyn 2.25 IV Q 8 * Bacteremia - Gram + Cocci, repeat BC showed coag negative staph * Blood cultures * ID (Suzette) * Vanco 1g MWF with dialysis * Needs outpatient repeat US on 03/06 * Continue antibiotics for 6 weeks outpatient Shortness of breathe * Chest xray * interval improvement in the right lower lobe * Persistent focal opacity/infiltrate at the right lower lobe * Cardiomegaly and pulmonary vascular congestion * PRN albuterol * Advair 250/50 1 puff INH Q 12 * Spiriva 18mcg INH daily * Oxygen 2 Liter PRN Coccyydynia * Sacrum and Coccyx Xray * no evidence of acute fracture or subluxation. * Degenerative changes and osteophyte formation * they dont make donut hole pillows any more according to nurse. Will write for one so he can purchase as an outpatient. In the mean time will tell him to offload by moving positions and will control pain. Ordered a bedside camode so he can sit up without pressure on his coccyx if he would like * Tylenol 650mg PO Q 6 H PRN * Ultram 25mg Q8 PRN History of Atrial fibrillation * Lopressor 50mg PO Q12H * HASBLED score = 3; correlates with 5.8% risk of major bleed- contraindication for anticoagulation * NADIRA score = 1 (no CHF, + HTN, does not meet age, not diabetic) * Echocardiogram: left ventricle systolic function is normal, EF:60-65%, diastolic dysfunction. Hypertension * Metoprolol 50 mg po BID Hyperlipidemia * Holding Statin for LDL less than 40 * Lipid panel: TG 162, Chol 178, LDL <30, HDL 27 Pancytopenia * Heme (Dr. Tony Brantley) * Prior history of lymphoma <Gaston Hawkins - Last Filed: 03/02/17 20:04> Objective - Vital Signs/Intake and Output Vital Signs (last 24 hours): Temp Pulse Resp BP Pulse Ox 97.9 F 69 20 148/87 96 03/02/17 07:27 03/02/17 16:45 03/02/17 07:27 03/02/17 16:45 03/02/17 16:45 Intake and Output: 03/02/17 03/03/17 18:59 06:59 Intake Total 290 Balance 290 - Medications Medications: Current Medications Acetaminophen (Tylenol 325mg Tab) 650 mg PO Q6 PRN PRN Reason: Pain, moderate (4-7) Last Admin: 03/01/17 20:09 Dose: 650 mg Albuterol (Ventolin Hfa 90 Mcg/Actuation (8 G)) 1 puff INH RQ6 PRN PRN Reason: Shortness of Breath Last Admin: 03/02/17 19:37 Dose: 1 puff Ergocalciferol (Drisdol 50,000 Intl Units Cap) 1 cap PO QWK [facility] Piperacillin Sod/Tazobactam Sod (Zosyn 2.25 Gm Iv Premix) 2.25 gm in 50 mls @ 200 mls/hr IVPB Q8H [facility] Last Admin: 03/02/17 16:52 Dose: 200 mls/hr Vancomycin/Sodium Chloride (Vancocin) 1 gm in 200 mls @ 167 mls/hr IVPB MWF ONE Stop: 03/03/17 10:11 Losartan Potassium (Cozaar) 100 mg PO DAILY [facility] Last Admin: 03/02/17 10:43 Dose: 100 mg Metoprolol Tartrate (Lopressor) 50 mg PO Q12 [facility] Last Admin: 03/02/17 10:49 Dose: 50 mg Rosuvastatin Calcium (Crestor) 5 mg PO HS [facility] Last Admin: 03/01/17 22:43 Dose: 5 mg Fluticasone/Salmeterol (Advair Diskus 250/50) 1 puff INH Q12H [facility] Last Admin: 03/02/17 19:37 Dose: 1 puff Tamsulosin HCl (Flomax) 0.4 mg PO DAILY [facility] Last Admin: 03/02/17 10:49 Dose: 0.4 mg Tiotropium [place] (Spiriva) 18 mcg INH RQD [facility] Last Admin: 03/02/17 08:27 Dose: Not Given Tramadol HCl (Ultram) 25 mg PO Q8 PRN PRN Reason: Pain, severe (8-10) Last Admin: 03/02/17 10:48 Dose: 25 mg Vitamin B Complex/Vit C/Folic Acid (Nephro-Anival) 1 tab PO DAILY [facility] Last Admin: 03/02/17 10:43 Dose: 1 tab - Labs Labs: 03/02/17 08:47 03/02/17 08:47 PT 12.1 SECONDS (9.7-12.2) 02/25/17 17:47 INR 1.1 02/25/17 17:47 APTT 28 SECONDS (21-34) 02/25/17 17:47 Attending/Attestation - Attestation I have personally seen and examined this patient.: Yes I have fully participated in the care of the patient.: Yes I have reviewed all pertinent clinical information, including history, physical exam and plan: Yes Notes (Text): 03/02/17 19:53 Patient was seen and examined at 5:30 PM 03/02/17 Exam, Assessment and Plan were thoroughly gone over with the resident. Please also note for Assessment and Plan: BPH: Flomax 0.4 mg PO 1x/day F/U 2D Echocardiogram report 02/28/17 Fistulogram 03/01/17: Perianastomotic area is free of significant occlusive disease. The axillary, subclavian, and innominate vessels were widely patent except on the junction of the left innominate to the the right innominate. There was previously placed stent in the right supraclavicular region. Blood Culture 02/25/17 showed Coag Negative Staph sensitive to Vancomycin. I spoke with ID Dr. Bradford who recommended a total of 6 weeks of Vancomycin 1 gm IV right after HD --. F/U Repeat Blood Culture 03/01/17 There was also the possibility of abscess/phlegmon in left arm as seen on U/S of Left Forearm 02/27/17. Dr. Bradford recommended repeat U/S 7 days from first: . Gaston Hawkins D.O.
--- NOTE | 2017-03-02 15:08 | CP.PCM.PN ---
Subjective - Date & Time of Evaluation Date of Evaluation: 02/27/17 Time of Evaluation: 19:00 - Subjective Subjective: Left arm swelling Objective - Vital Signs/Intake and Output Vital Signs (last 24 hours): Temp Pulse Resp BP Pulse Ox 97.9 F 69 20 148/87 96 03/02/17 07:27 03/02/17 07:27 03/02/17 07:27 03/02/17 07:27 03/02/17 07:27 Intake and Output: 03/02/17 03/02/17 06:59 18:59 Intake Total 290 Balance 290 - Medications Medications: Current Medications Acetaminophen (Tylenol 325mg Tab) 650 mg PO Q6 PRN PRN Reason: Pain, moderate (4-7) Last Admin: 03/01/17 20:09 Dose: 650 mg Albuterol (Ventolin Hfa 90 Mcg/Actuation (8 G)) 1 puff INH RQ6 PRN PRN Reason: Shortness of Breath Last Admin: 03/01/17 21:00 Dose: 1 puff Ergocalciferol (Drisdol 50,000 Intl Units Cap) 1 cap PO QWK [facility] Piperacillin Sod/Tazobactam Sod (Zosyn 2.25 Gm Iv Premix) 2.25 gm in 50 mls @ 200 mls/hr IVPB Q8H [facility] Last Admin: 03/02/17 10:42 Dose: 200 mls/hr Vancomycin/Sodium Chloride (Vancocin) 1 gm in 200 mls @ 167 mls/hr IVPB MWF ONE Stop: 03/03/17 10:11 Losartan Potassium (Cozaar) 100 mg PO DAILY [facility] Last Admin: 03/02/17 10:43 Dose: 100 mg Metoprolol Tartrate (Lopressor) 50 mg PO Q12 [facility] Last Admin: 03/02/17 10:49 Dose: 50 mg Rosuvastatin Calcium (Crestor) 5 mg PO HS [facility] Last Admin: 03/01/17 22:43 Dose: 5 mg Fluticasone/Salmeterol (Advair Diskus 250/50) 1 puff INH Q12H [facility] Last Admin: 03/01/17 21:00 Dose: 1 puff Tamsulosin HCl (Flomax) 0.4 mg PO DAILY [facility] Last Admin: 03/02/17 10:49 Dose: 0.4 mg Tiotropium [place] (Spiriva) 18 mcg INH RQD [facility] Last Admin: 03/02/17 08:27 Dose: Not Given Tramadol HCl (Ultram) 25 mg PO Q8 PRN PRN Reason: Pain, severe (8-10) Last Admin: 03/02/17 10:48 Dose: 25 mg Vitamin B Complex/Vit C/Folic Acid (Nephro-Anival) 1 tab PO DAILY [facility] Last Admin: 03/02/17 10:43 Dose: 1 tab - Labs Labs: 03/02/17 08:47 03/02/17 08:47 PT 12.1 SECONDS (9.7-12.2) 02/25/17 17:47 INR 1.1 02/25/17 17:47 APTT 28 SECONDS (21-34) 02/25/17 17:47 - Head Exam Head Exam: ATRAUMATIC - Eye Exam Eye Exam: Normal appearance - ENT Exam ENT Exam: Mucous Membranes Dry - Respiratory Exam Respiratory Exam: NORMAL BREATHING PATTERN - Cardiovascular Exam Cardiovascular Exam: +S1, +S2 - GI/Abdominal Exam GI & Abdominal Exam: Normal Bowel Sounds - Extremities Exam Extremities Exam: Pedal Edema Assessment and Plan (1) Pancytopenia Assessment & Plan: chronic no transfusion indication Status: Acute (2) Non-Hodgkin lymphoma Assessment & Plan: in remission Status: Acute
--- NOTE | 2017-03-02 15:09 | CP.PCM.PN ---
Subjective - Date & Time of Evaluation Date of Evaluation: 02/28/17 Time of Evaluation: 12:10 - Subjective Subjective: Arm swelling improved Objective - Vital Signs/Intake and Output Vital Signs (last 24 hours): Temp Pulse Resp BP Pulse Ox 97.9 F 69 20 148/87 96 03/02/17 07:27 03/02/17 07:27 03/02/17 07:27 03/02/17 07:27 03/02/17 07:27 Intake and Output: 03/02/17 03/02/17 06:59 18:59 Intake Total 290 Balance 290 - Medications Medications: Current Medications Acetaminophen (Tylenol 325mg Tab) 650 mg PO Q6 PRN PRN Reason: Pain, moderate (4-7) Last Admin: 03/01/17 20:09 Dose: 650 mg Albuterol (Ventolin Hfa 90 Mcg/Actuation (8 G)) 1 puff INH RQ6 PRN PRN Reason: Shortness of Breath Last Admin: 03/01/17 21:00 Dose: 1 puff Ergocalciferol (Drisdol 50,000 Intl Units Cap) 1 cap PO QWK [facility] Piperacillin Sod/Tazobactam Sod (Zosyn 2.25 Gm Iv Premix) 2.25 gm in 50 mls @ 200 mls/hr IVPB Q8H [facility] Last Admin: 03/02/17 10:42 Dose: 200 mls/hr Vancomycin/Sodium Chloride (Vancocin) 1 gm in 200 mls @ 167 mls/hr IVPB MWF ONE Stop: 03/03/17 10:11 Losartan Potassium (Cozaar) 100 mg PO DAILY [facility] Last Admin: 03/02/17 10:43 Dose: 100 mg Metoprolol Tartrate (Lopressor) 50 mg PO Q12 [facility] Last Admin: 03/02/17 10:49 Dose: 50 mg Rosuvastatin Calcium (Crestor) 5 mg PO HS [facility] Last Admin: 03/01/17 22:43 Dose: 5 mg Fluticasone/Salmeterol (Advair Diskus 250/50) 1 puff INH Q12H [facility] Last Admin: 03/01/17 21:00 Dose: 1 puff Tamsulosin HCl (Flomax) 0.4 mg PO DAILY [facility] Last Admin: 03/02/17 10:49 Dose: 0.4 mg Tiotropium [place] (Spiriva) 18 mcg INH RQD [facility] Last Admin: 03/02/17 08:27 Dose: Not Given Tramadol HCl (Ultram) 25 mg PO Q8 PRN PRN Reason: Pain, severe (8-10) Last Admin: 03/02/17 10:48 Dose: 25 mg Vitamin B Complex/Vit C/Folic Acid (Nephro-Anival) 1 tab PO DAILY [facility] Last Admin: 03/02/17 10:43 Dose: 1 tab - Labs Labs: 03/02/17 08:47 03/02/17 08:47 PT 12.1 SECONDS (9.7-12.2) 02/25/17 17:47 INR 1.1 02/25/17 17:47 APTT 28 SECONDS (21-34) 02/25/17 17:47 - Head Exam Head Exam: ATRAUMATIC - Eye Exam Eye Exam: Normal appearance - ENT Exam ENT Exam: Mucous Membranes Dry - Respiratory Exam Respiratory Exam: NORMAL BREATHING PATTERN - Cardiovascular Exam Cardiovascular Exam: +S1, +S2 - GI/Abdominal Exam GI & Abdominal Exam: Normal Bowel Sounds - Extremities Exam Extremities Exam: Pedal Edema Assessment and Plan (1) Pancytopenia Assessment & Plan: chronic no transfusion indication Status: Acute (2) Non-Hodgkin lymphoma Assessment & Plan: in remission Status: Acute
--- NOTE | 2017-03-02 15:10 | CP.PCM.PN ---
Subjective - Date & Time of Evaluation Date of Evaluation: 03/01/17 Time of Evaluation: 20:00 - Subjective Subjective: Has mild discomfort post vascular intervention Objective - Vital Signs/Intake and Output Vital Signs (last 24 hours): Temp Pulse Resp BP Pulse Ox 97.9 F 69 20 148/87 96 03/02/17 07:27 03/02/17 07:27 03/02/17 07:27 03/02/17 07:27 03/02/17 07:27 Intake and Output: 03/02/17 03/02/17 06:59 18:59 Intake Total 290 Balance 290 - Medications Medications: Current Medications Acetaminophen (Tylenol 325mg Tab) 650 mg PO Q6 PRN PRN Reason: Pain, moderate (4-7) Last Admin: 03/01/17 20:09 Dose: 650 mg Albuterol (Ventolin Hfa 90 Mcg/Actuation (8 G)) 1 puff INH RQ6 PRN PRN Reason: Shortness of Breath Last Admin: 03/01/17 21:00 Dose: 1 puff Ergocalciferol (Drisdol 50,000 Intl Units Cap) 1 cap PO QWK [facility] Piperacillin Sod/Tazobactam Sod (Zosyn 2.25 Gm Iv Premix) 2.25 gm in 50 mls @ 200 mls/hr IVPB Q8H [facility] Last Admin: 03/02/17 10:42 Dose: 200 mls/hr Vancomycin/Sodium Chloride (Vancocin) 1 gm in 200 mls @ 167 mls/hr IVPB MWF ONE Stop: 03/03/17 10:11 Losartan Potassium (Cozaar) 100 mg PO DAILY [facility] Last Admin: 03/02/17 10:43 Dose: 100 mg Metoprolol Tartrate (Lopressor) 50 mg PO Q12 [facility] Last Admin: 03/02/17 10:49 Dose: 50 mg Rosuvastatin Calcium (Crestor) 5 mg PO HS [facility] Last Admin: 03/01/17 22:43 Dose: 5 mg Fluticasone/Salmeterol (Advair Diskus 250/50) 1 puff INH Q12H [facility] Last Admin: 03/01/17 21:00 Dose: 1 puff Tamsulosin HCl (Flomax) 0.4 mg PO DAILY [facility] Last Admin: 03/02/17 10:49 Dose: 0.4 mg Tiotropium [place] (Spiriva) 18 mcg INH RQD [facility] Last Admin: 03/02/17 08:27 Dose: Not Given Tramadol HCl (Ultram) 25 mg PO Q8 PRN PRN Reason: Pain, severe (8-10) Last Admin: 03/02/17 10:48 Dose: 25 mg Vitamin B Complex/Vit C/Folic Acid (Nephro-Anival) 1 tab PO DAILY [facility] Last Admin: 03/02/17 10:43 Dose: 1 tab - Labs Labs: 03/02/17 08:47 03/02/17 08:47 PT 12.1 SECONDS (9.7-12.2) 02/25/17 17:47 INR 1.1 02/25/17 17:47 APTT 28 SECONDS (21-34) 02/25/17 17:47 - Head Exam Head Exam: ATRAUMATIC - Eye Exam Eye Exam: Normal appearance - ENT Exam ENT Exam: Mucous Membranes Dry - Respiratory Exam Respiratory Exam: NORMAL BREATHING PATTERN - Cardiovascular Exam Cardiovascular Exam: +S1, +S2 - GI/Abdominal Exam GI & Abdominal Exam: Normal Bowel Sounds - Extremities Exam Extremities Exam: Pedal Edema Assessment and Plan (1) Pancytopenia Assessment & Plan: chronic no intervention Status: Acute (2) Non-Hodgkin lymphoma Assessment & Plan: in remission Status: Acute
--- NOTE | 2017-03-02 15:11 | CP.PCM.PN ---
Subjective - Date & Time of Evaluation Date of Evaluation: 03/02/17 Time of Evaluation: 15:00 - Subjective Subjective: Left arm swelling improved Objective - Vital Signs/Intake and Output Vital Signs (last 24 hours): Temp Pulse Resp BP Pulse Ox 97.9 F 69 20 148/87 96 03/02/17 07:27 03/02/17 07:27 03/02/17 07:27 03/02/17 07:27 03/02/17 07:27 Intake and Output: 03/02/17 03/02/17 06:59 18:59 Intake Total 290 290 Balance 290 290 - Medications Medications: Current Medications Acetaminophen (Tylenol 325mg Tab) 650 mg PO Q6 PRN PRN Reason: Pain, moderate (4-7) Last Admin: 03/01/17 20:09 Dose: 650 mg Albuterol (Ventolin Hfa 90 Mcg/Actuation (8 G)) 1 puff INH RQ6 PRN PRN Reason: Shortness of Breath Last Admin: 03/01/17 21:00 Dose: 1 puff Ergocalciferol (Drisdol 50,000 Intl Units Cap) 1 cap PO QWK [facility] Piperacillin Sod/Tazobactam Sod (Zosyn 2.25 Gm Iv Premix) 2.25 gm in 50 mls @ 200 mls/hr IVPB Q8H [facility] Last Admin: 03/02/17 10:42 Dose: 200 mls/hr Vancomycin/Sodium Chloride (Vancocin) 1 gm in 200 mls @ 167 mls/hr IVPB MWF ONE Stop: 03/03/17 10:11 Losartan Potassium (Cozaar) 100 mg PO DAILY [facility] Last Admin: 03/02/17 10:43 Dose: 100 mg Metoprolol Tartrate (Lopressor) 50 mg PO Q12 [facility] Last Admin: 03/02/17 10:49 Dose: 50 mg Rosuvastatin Calcium (Crestor) 5 mg PO HS [facility] Last Admin: 03/01/17 22:43 Dose: 5 mg Fluticasone/Salmeterol (Advair Diskus 250/50) 1 puff INH Q12H [facility] Last Admin: 03/01/17 21:00 Dose: 1 puff Tamsulosin HCl (Flomax) 0.4 mg PO DAILY [facility] Last Admin: 03/02/17 10:49 Dose: 0.4 mg Tiotropium [place] (Spiriva) 18 mcg INH RQD [facility] Last Admin: 03/02/17 08:27 Dose: Not Given Tramadol HCl (Ultram) 25 mg PO Q8 PRN PRN Reason: Pain, severe (8-10) Last Admin: 03/02/17 10:48 Dose: 25 mg Vitamin B Complex/Vit C/Folic Acid (Nephro-Anival) 1 tab PO DAILY [facility] Last Admin: 03/02/17 10:43 Dose: 1 tab - Labs Labs: 03/02/17 08:47 03/02/17 08:47 PT 12.1 SECONDS (9.7-12.2) 02/25/17 17:47 INR 1.1 02/25/17 17:47 APTT 28 SECONDS (21-34) 02/25/17 17:47 - Head Exam Head Exam: ATRAUMATIC - Eye Exam Eye Exam: Normal appearance - ENT Exam ENT Exam: Mucous Membranes Dry - Respiratory Exam Respiratory Exam: NORMAL BREATHING PATTERN - Cardiovascular Exam Cardiovascular Exam: +S1, +S2 - GI/Abdominal Exam GI & Abdominal Exam: Normal Bowel Sounds - Extremities Exam Extremities Exam: Normal Inspection Assessment and Plan (1) Pancytopenia Assessment & Plan: chronic no intervention Status: Acute (2) Non-Hodgkin lymphoma Assessment & Plan: in remission Status: Acute
[2017-03-02] MEDS: Fluticasone-Salmeterol 250-50mcg Diskus INH SCH (19:37)
[2017-03-02] MEDS: Albuterol HFA 90 mcg/actuation (8 g) INH PRN (19:37)
--- NOTE | 2017-03-02 20:21 | CP.PCM.PN ---
Subjective - Date & Time of Evaluation Date of Evaluation: 03/02/17 Time of Evaluation: 06:20 - Subjective Subjective: dictated Objective - Vital Signs/Intake and Output Vital Signs (last 24 hours): Temp Pulse Resp BP Pulse Ox 97.9 F 69 20 148/87 96 03/02/17 07:27 03/02/17 16:45 03/02/17 07:27 03/02/17 16:45 03/02/17 16:45 Intake and Output: 03/02/17 03/03/17 18:59 06:59 Intake Total 290 Balance 290 - Medications Medications: Current Medications Acetaminophen (Tylenol 325mg Tab) 650 mg PO Q6 PRN PRN Reason: Pain, moderate (4-7) Last Admin: 03/01/17 20:09 Dose: 650 mg Albuterol (Ventolin Hfa 90 Mcg/Actuation (8 G)) 1 puff INH RQ6 PRN PRN Reason: Shortness of Breath Last Admin: 03/02/17 19:37 Dose: 1 puff Ergocalciferol (Drisdol 50,000 Intl Units Cap) 1 cap PO QWK [facility] Piperacillin Sod/Tazobactam Sod (Zosyn 2.25 Gm Iv Premix) 2.25 gm in 50 mls @ 200 mls/hr IVPB Q8H [facility] Last Admin: 03/02/17 16:52 Dose: 200 mls/hr Vancomycin/Sodium Chloride (Vancocin) 1 gm in 200 mls @ 167 mls/hr IVPB MWF ONE Stop: 03/03/17 10:11 Losartan Potassium (Cozaar) 100 mg PO DAILY [facility] Last Admin: 03/02/17 10:43 Dose: 100 mg Metoprolol Tartrate (Lopressor) 50 mg PO Q12 [facility] Last Admin: 03/02/17 10:49 Dose: 50 mg Rosuvastatin Calcium (Crestor) 5 mg PO HS [facility] Last Admin: 03/01/17 22:43 Dose: 5 mg Fluticasone/Salmeterol (Advair Diskus 250/50) 1 puff INH Q12H [facility] Last Admin: 03/02/17 19:37 Dose: 1 puff Tamsulosin HCl (Flomax) 0.4 mg PO DAILY [facility] Last Admin: 03/02/17 10:49 Dose: 0.4 mg Tiotropium [place] (Spiriva) 18 mcg INH RQD [facility] Last Admin: 03/02/17 08:27 Dose: Not Given Tramadol HCl (Ultram) 25 mg PO Q8 PRN PRN Reason: Pain, severe (8-10) Last Admin: 03/02/17 10:48 Dose: 25 mg Vitamin B Complex/Vit C/Folic Acid (Nephro-Anival) 1 tab PO DAILY [facility] Last Admin: 03/02/17 10:43 Dose: 1 tab - Labs Labs: 03/02/17 08:47 03/02/17 08:47 PT 12.1 SECONDS (9.7-12.2) 02/25/17 17:47 INR 1.1 02/25/17 17:47 APTT 28 SECONDS (21-34) 02/25/17 17:47
--- NOTE | 2017-03-02 21:46 | PN ---
DATE: INFECTIOUS DISEASE FOLLOWUP SUBJECTIVE: The patient has swelling in his left, is not hurting him much. He was seen in the dialysis unit yesterday. He denies any other complaints. He does not remember how the swelling happened and when it happened. He says he has a poor memory. He does complain of pain in the coccyx and I told him to talk to the PMD for it. PHYSICAL EXAMINATION: VITAL SIGNS: T-max is 97.9, pulse 69, blood pressure 148/87, respirations are 20. HEENT: Head is atraumatic. NECK: Supple. LUNGS: Clear. HEART: S1 and S2 is regular. ABDOMEN: Soft and nontender. No guarding. EXTREMITIES: No edema, clubbing, or cyanosis. Left forearm remains swollen and he has 2 fluid-filled small blisters and has mild increased warmth in the regular arm. LABORATORY DATA: Labs are noted. Labs show white count is 4.7, hemoglobin 11.3, hematocrit 34.3, and platelet count is only 78. Chemistry shows sodium 139, potassium 5, chloride is 96, CO2 is 30, BUN is 35, creatinine is 6.9. He is a dialysis patient. His cultures, one of the blood cultures did grow coagulase-negative Staphylococcus and it is vancomycin-sensitive and gentamicin-sensitive Staphylococcus epidermidis and the second set is negative from 02/25/2017. The 2 sets we did yesterday are negative so far. Those were done on the dialysis. Also, he had ultrasound of his arm on 02/27/2017, which showed 1.5 x 2.2 cm concerning for a possible abscess and/ or phlegmon collection. Etiology vascular malformation not excluded. This appears to be contiguous with adjacent vasculature of the forearm. There may be a possibility of abscess or a phlegmon collection and the patient is told to have an MRI. We will discuss the plan with renal attending and vascular. His sacral and coccygeal x-rays were done, which showed sacral and coccygeal unremarkable, no fracture or focal lesion, degenerative changes associated with osteophyte formation sacroiliac moderate degenerative changes, so at this time, he is on vancomycin and Zosyn. We will continue those and will follow for the plan if he needs an MRI and he may otherwise need long-term antibiotics till 6 weeks. Levon Bradford MD [facility] # [id number]
[2017-03-03] MEDS: Piperacill/Tazo 2.25gm in Dex 2.25 GM/50 ML BAG IVPB SCH ×4 (01:33→17:43)
--- NOTE | 2017-03-03 07:27 | CP.PCM.PN ---
Subjective - Date & Time of Evaluation Date of Evaluation: 03/03/17 Time of Evaluation: 07:22 - Subjective Subjective: Vascular Surgery Dr. Altman Pt S&E @bedside. NAEO. no complaints. denies pain, numbness, tingling of arm. tolerating diet. Objective - Vital Signs/Intake and Output Vital Signs (last 24 hours): Temp Pulse Resp BP Pulse Ox 98.1 F 77 20 168/80 H 96 03/03/17 00:00 03/03/17 00:00 03/03/17 00:00 03/03/17 00:00 03/03/17 00:00 Intake and Output: 03/03/17 03/03/17 06:59 18:59 Intake Total 200 Balance 200 - Medications Medications: Current Medications Acetaminophen (Tylenol 325mg Tab) 650 mg PO Q6 PRN PRN Reason: Pain, moderate (4-7) Last Admin: 03/01/17 20:09 Dose: 650 mg Albuterol (Ventolin Hfa 90 Mcg/Actuation (8 G)) 1 puff INH RQ6 PRN PRN Reason: Shortness of Breath Last Admin: 03/02/17 19:37 Dose: 1 puff Ergocalciferol (Drisdol 50,000 Intl Units Cap) 1 cap PO QWK [facility] Piperacillin Sod/Tazobactam Sod (Zosyn 2.25 Gm Iv Premix) 2.25 gm in 50 mls @ 200 mls/hr IVPB Q8H [facility] Last Admin: 03/03/17 01:33 Dose: 200 mls/hr Vancomycin/Sodium Chloride (Vancocin) 1 gm in 200 mls @ 167 mls/hr IVPB MWF ONE Stop: 03/03/17 10:11 Losartan Potassium (Cozaar) 100 mg PO DAILY [facility] Last Admin: 03/02/17 10:43 Dose: 100 mg Metoprolol Tartrate (Lopressor) 50 mg PO Q12 [facility] Last Admin: 03/02/17 21:58 Dose: 50 mg Rosuvastatin Calcium (Crestor) 5 mg PO HS [facility] Last Admin: 03/02/17 21:59 Dose: 5 mg Fluticasone/Salmeterol (Advair Diskus 250/50) 1 puff INH Q12H [facility] Last Admin: 03/02/17 19:37 Dose: 1 puff Tamsulosin HCl (Flomax) 0.4 mg PO DAILY [facility] Last Admin: 03/02/17 10:49 Dose: 0.4 mg Tiotropium [place] (Spiriva) 18 mcg INH RQD [facility] Last Admin: 03/02/17 08:27 Dose: Not Given Tramadol HCl (Ultram) 25 mg PO Q8 PRN PRN Reason: Pain, severe (8-10) Last Admin: 03/02/17 10:48 Dose: 25 mg Vitamin B Complex/Vit C/Folic Acid (Nephro-Anival) 1 tab PO DAILY [facility] Last Admin: 03/02/17 10:43 Dose: 1 tab - Labs Labs: 03/02/17 08:47 03/02/17 08:47 PT 12.1 SECONDS (9.7-12.2) 02/25/17 17:47 INR 1.1 02/25/17 17:47 APTT 28 SECONDS (21-34) 02/25/17 17:47 - Constitutional Appears: Non-toxic, No Acute Distress - Head Exam Head Exam: NORMAL INSPECTION - Eye Exam Eye Exam: Normal appearance - ENT Exam ENT Exam: Mucous Membranes Moist - Neck Exam Neck Exam: Normal Inspection - Respiratory Exam Respiratory Exam: NORMAL BREATHING PATTERN. absent: Accessory Muscle Use, Respiratory Distress - Cardiovascular Exam Cardiovascular Exam: absent: Bradycardia, Tachycardia - GI/Abdominal Exam GI & Abdominal Exam: Soft. absent: Distended - Extremities Exam Additional comments: palpable thrill. 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 - continue dialysis - dressing changes PRN - monitor arm of swelling - continue medical management pt cleared for discharge from surgical standpoint Pt discussed Dr. Agapito Leger DO PGY2
[2017-03-03] MEDS: Albuterol HFA 90 mcg/actuation (8 g) INH PRN (07:50)
[2017-03-03] MEDS: Fluticasone-Salmeterol 250-50mcg Diskus INH SCH ×2 (07:50→19:19)
[2017-03-03] MEDS: Tiotropium 18 mcg Cap For Inhalation INH SCH (07:50)
[2017-03-03] MEDS ORDERED: Vancomycin 1 gm/NS 200 ml 1 GM/200 ML BAG IVPB ONE (09:00)
[2017-03-03] MEDS: Multivitamin Vitamin B Complex (Nephro-Vite) Tab PO SCH (10:46)
--- NOTE | 2017-03-03 11:32 | CP.PCM.PN ---
Subjective - Date & Time of Evaluation Date of Evaluation: 03/03/17 Time of Evaluation: 11:29 - Subjective Subjective: seen on hd left arm swelling much improved repeat blood cx negative, previously one set coag neg staph. US of left arm shows a "fluid collection" - ? phlegmon / abscess cannot be excluded Objective - Vital Signs/Intake and Output Vital Signs (last 24 hours): Temp Pulse Resp BP Pulse Ox 97.7 F 66 20 139/80 99 03/03/17 08:54 03/03/17 08:54 03/03/17 08:54 03/03/17 10:20 03/03/17 08:54 Intake and Output: 03/03/17 03/03/17 06:59 18:59 Intake Total 200 Balance 200 - Medications Medications: Current Medications Acetaminophen (Tylenol 325mg Tab) 650 mg PO Q6 PRN PRN Reason: Pain, moderate (4-7) Last Admin: 03/01/17 20:09 Dose: 650 mg Albuterol (Ventolin Hfa 90 Mcg/Actuation (8 G)) 1 puff INH RQ6 PRN PRN Reason: Shortness of Breath Last Admin: 03/03/17 07:50 Dose: 1 puff Ergocalciferol (Drisdol 50,000 Intl Units Cap) 1 cap PO QWK [facility] Piperacillin Sod/Tazobactam Sod (Zosyn 2.25 Gm Iv Premix) 2.25 gm in 50 mls @ 200 mls/hr IVPB Q8H [facility] Last Admin: 03/03/17 09:47 Dose: Not Given Losartan Potassium (Cozaar) 100 mg PO DAILY [facility] Last Admin: 03/03/17 09:47 Dose: Not Given Metoprolol Tartrate (Lopressor) 50 mg PO Q12 [facility] Last Admin: 03/03/17 09:47 Dose: Not Given Rosuvastatin Calcium (Crestor) 5 mg PO HS [facility] Last Admin: 03/02/17 21:59 Dose: 5 mg Fluticasone/Salmeterol (Advair Diskus 250/50) 1 puff INH Q12H [facility] Last Admin: 03/03/17 07:50 Dose: 1 puff Tamsulosin HCl (Flomax) 0.4 mg PO DAILY [facility] Last Admin: 03/03/17 10:47 Dose: 0.4 mg Tiotropium [place] (Spiriva) 18 mcg INH RQD [facility] Last Admin: 03/03/17 07:50 Dose: 18 mcg Tramadol HCl (Ultram) 25 mg PO Q8 PRN PRN Reason: Pain, severe (8-10) Last Admin: 03/02/17 10:48 Dose: 25 mg Vitamin B Complex/Vit C/Folic Acid (Nephro-Anival) 1 tab PO DAILY [facility] Last Admin: 03/03/17 10:46 Dose: 1 tab - Labs Labs: 03/02/17 08:47 03/02/17 08:47 PT 12.1 SECONDS (9.7-12.2) 02/25/17 17:47 INR 1.1 02/25/17 17:47 APTT 28 SECONDS (21-34) 02/25/17 17:47 - Constitutional Appears: Non-toxic, No Acute Distress, Chronically Ill - Head Exam Head Exam: NORMAL INSPECTION - Eye Exam Eye Exam: Normal appearance - ENT Exam ENT Exam: Mucous Membranes Moist, Normal Exam - Neck Exam Neck Exam: Normal Inspection - Respiratory Exam Respiratory Exam: Decreased Breath Sounds, NORMAL BREATHING PATTERN - Cardiovascular Exam Cardiovascular Exam: REGULAR RHYTHM, RRR - GI/Abdominal Exam GI & Abdominal Exam: Soft, Normal Bowel Sounds - Extremities Exam Extremities Exam: Normal Inspection (lue avf. arm swollen, erythematous. ) Assessment and Plan (1) Arm swelling Status: Acute (2) AV fistula occlusion Status: Acute (3) Anemia Status: Acute (4) End-stage renal disease Status: Chronic (5) Hypertension Status: Chronic - Assessment and Plan (Free Text) Assessment: esrd s/p angioplasty of fistula htn coag neg staph bacteremia chronic thrombocytopenia, hx of NHL in remission plan: maintain hd mwf antibiotics per ID ok to do MRI without gadolinum for evaluation of left arm.
--- NOTE | 2017-03-03 16:33 | CARD ---
APPROVED REPORT EXAM: Two-dimensional and M-mode echocardiogram with Doppler and color Doppler. Other Information Quality : GoodRhythm : NSR INDICATION Dyspnea Atrial Fibrillation Congestive Heart Failure COPD LEFT ARM SWELLING, R/O VEGETATION RISK FACTORS Hypertension 2D DIMENSIONS IVSd1.8 (0.7-1.1cm)LVDd5.0 (3.9-5.9cm) PWd1.6 (0.7-1.1cm)LVDs3.6 (2.5-4.0cm) FS (%) 27.9 %LVEF (%)53.8 (>50%) M-Mode DIMENSIONS Left Atrium (MM)4.46 (2.5-4.0cm)Aortic Root4.41 (2.2-3.7cm) Aortic Cusp Exc.2.59 (1.5-2.0cm) Mitral Valve MV E Fgazpoxv20.4cm/sMV A Rnutvahm23.5cm/sE/A ratio1.0 TDI E/Lateral E'0.0E/Medial E'0.0 Tricuspid Valve TR Peak Ulktabkf550xi/sTR Peak Gr.[id number] LEFT VENTRICLE The left ventricle is normal size. There is normal left ventricular wall thickness. Left ventricle systolic function is normal. The Ejection Fraction is 50-55%. There is normal LV segmental wall motion. Tissue Doppler imaging reveals abnormal left ventricular diastolic dysfunction. RIGHT VENTRICLE The right ventricle is normal size. There is normal right ventricular wall thickness. The right ventricular systolic function is normal. ATRIA The left atrium size is normal. The right atrium size is normal. The interatrial septum is intact with no evidence for an atrial septal defect. AORTIC VALVE The aortic valve is normal in structure. No aortic regurgitation is present. There is no aortic valvular stenosis. MITRAL VALVE The mitral valve is normal in structure. There is no evidence of mitral valve prolapse. There is no mitral valve stenosis. Mitral regurgitation is mild. TRICUSPID VALVE The tricuspid valve is normal in structure. There is trace to mild tricuspid regurgitation. Right ventricular systolic pressure is estimated at less than 30 mmHg. There is no pulmonary hypertension. PULMONIC VALVE The pulmonary valve is normal in structure. There is trace pulmonic valvular regurgitation. GREAT VESSELS The aortic root is normal in size. PERICARDIAL EFFUSION There is no significant pericardial effusion. <Conclusion> Left ventricle systolic function is normal. The Ejection Fraction is 50-55%. Diastolic dysfunction. No aortic regurgitation is present. Mitral regurgitation is mild. There is trace to mild tricuspid regurgitation. There is no pulmonary hypertension. There is trace pulmonic valvular regurgitation.
--- NOTE | 2017-03-03 17:04 | CP.PCM.PN ---
Subjective - Date & Time of Evaluation Date of Evaluation: 03/03/17 Time of Evaluation: 04:45 - Subjective Subjective: dictated Objective - Vital Signs/Intake and Output Vital Signs (last 24 hours): Temp Pulse Resp BP Pulse Ox 97.6 F 71 19 140/84 97 03/03/17 12:20 03/03/17 12:20 03/03/17 12:20 03/03/17 12:20 03/03/17 12:20 Intake and Output: 03/03/17 03/03/17 06:59 18:59 Intake Total 200 Balance 200 - Medications Medications: Current Medications Acetaminophen (Tylenol 325mg Tab) 650 mg PO Q6 PRN PRN Reason: Pain, moderate (4-7) Last Admin: 03/01/17 20:09 Dose: 650 mg Albuterol (Ventolin Hfa 90 Mcg/Actuation (8 G)) 1 puff INH RQ6 PRN PRN Reason: Shortness of Breath Last Admin: 03/03/17 07:50 Dose: 1 puff Ergocalciferol (Drisdol 50,000 Intl Units Cap) 1 cap PO QWK [facility] Piperacillin Sod/Tazobactam Sod (Zosyn 2.25 Gm Iv Premix) 2.25 gm in 50 mls @ 200 mls/hr IVPB Q8H [facility] Last Admin: 03/03/17 13:09 Dose: 200 mls/hr Losartan Potassium (Cozaar) 100 mg PO DAILY [facility] Last Admin: 03/03/17 09:47 Dose: Not Given Metoprolol Tartrate (Lopressor) 50 mg PO Q12 [facility] Last Admin: 03/03/17 09:47 Dose: Not Given Rosuvastatin Calcium (Crestor) 5 mg PO HS [facility] Last Admin: 03/02/17 21:59 Dose: 5 mg Fluticasone/Salmeterol (Advair Diskus 250/50) 1 puff INH Q12H [facility] Last Admin: 03/03/17 07:50 Dose: 1 puff Tamsulosin HCl (Flomax) 0.4 mg PO DAILY [facility] Last Admin: 03/03/17 10:47 Dose: 0.4 mg Tiotropium [place] (Spiriva) 18 mcg INH RQD [facility] Last Admin: 03/03/17 07:50 Dose: 18 mcg Tramadol HCl (Ultram) 25 mg PO Q8 PRN PRN Reason: Pain, severe (8-10) Last Admin: 03/02/17 10:48 Dose: 25 mg Vitamin B Complex/Vit C/Folic Acid (Nephro-Anival) 1 tab PO DAILY [facility] Last Admin: 03/03/17 10:46 Dose: 1 tab - Labs Labs: 03/02/17 08:47 03/02/17 08:47 PT 12.1 SECONDS (9.7-12.2) 02/25/17 17:47 INR 1.1 02/25/17 17:47 APTT 28 SECONDS (21-34) 02/25/17 17:47
--- NOTE | 2017-03-03 17:07 | MRI ---
PROCEDURE: MRI of the left forearm without contrast HISTORY: Possible Abscess/Phlegmon at Left Lower arm COMPARISON: Comparison is made to the previous ultrasound dated 02/27/2017 TECHNIQUE: Axial and coronal and sagittal MRI images of the left forearm were obtained without IV contrast administration. FINDINGS: This study is limited due to the patient's motion. The axial images are markedly limited. There are subcutaneous edema and inflammatory changes seen at the anterior and lateral aspect of the proximal and mid forearm. There is no evidence of discrete fluid collection to suggest abscess formation in this suboptimal study. Prominent vessels seen at the anterior aspect of the proximal left forearm. Diffuse increased signal in the soft tissue and muscles likely due to inflammatory changes and myositis. No evidence of osteomyelitis. Focal defect or compression in the anterior aspect of the proximal forearm. Correlate clinically for skin ulcer or postsurgical changes. IMPRESSION: Somewhat limited study due to patient's motion and lack of IV contrast administration. No evidence of discrete abscess or fluid collection. Diffuse inflammatory changes more prominent at the anterior aspect of the proximal and mid portion of the left forearm. Diffuse increased signal of the soft tissues suggestive of inflammatory changes and myositis.
--- NOTE | 2017-03-03 17:32 | CP.PCM.PN ---
<Deysi Wahlen - Last Filed: 03/03/17 17:27> Subjective - Date & Time of Evaluation Date of Evaluation: 03/03/17 Time of Evaluation: 17:27 - Subjective Subjective: Patient seen and examined in dialysis. Patient Doing well with no new complaints at this time. Patient is still having coccyx pain but denies pain anywhere else including the left arm at his dialysis site. Patient denies fever , chills, CP, SOB, AP, C/D, N/V. Objective - Vital Signs/Intake and Output Vital Signs (last 24 hours): Temp Pulse Resp BP Pulse Ox 97.6 F 71 19 140/84 97 03/03/17 12:20 03/03/17 12:20 03/03/17 12:20 03/03/17 12:20 03/03/17 12:20 Intake and Output: 03/03/17 03/03/17 06:59 18:59 Intake Total 200 500 Balance 200 500 - Medications Medications: Current Medications Acetaminophen (Tylenol 325mg Tab) 650 mg PO Q6 PRN PRN Reason: Pain, moderate (4-7) Last Admin: 03/01/17 20:09 Dose: 650 mg Albuterol (Ventolin Hfa 90 Mcg/Actuation (8 G)) 1 puff INH RQ6 PRN PRN Reason: Shortness of Breath Last Admin: 03/03/17 07:50 Dose: 1 puff Ergocalciferol (Drisdol 50,000 Intl Units Cap) 1 cap PO QWK [facility] Piperacillin Sod/Tazobactam Sod (Zosyn 2.25 Gm Iv Premix) 2.25 gm in 50 mls @ 200 mls/hr IVPB Q8H [facility] Last Admin: 03/03/17 13:09 Dose: 200 mls/hr Losartan Potassium (Cozaar) 100 mg PO DAILY [facility] Last Admin: 03/03/17 09:47 Dose: Not Given Metoprolol Tartrate (Lopressor) 50 mg PO Q12 [facility] Last Admin: 03/03/17 09:47 Dose: Not Given Rosuvastatin Calcium (Crestor) 5 mg PO HS [facility] Last Admin: 03/02/17 21:59 Dose: 5 mg Fluticasone/Salmeterol (Advair Diskus 250/50) 1 puff INH Q12H [facility] Last Admin: 03/03/17 07:50 Dose: 1 puff Tamsulosin HCl (Flomax) 0.4 mg PO DAILY [facility] Last Admin: 03/03/17 10:47 Dose: 0.4 mg Tiotropium [place] (Spiriva) 18 mcg INH RQD [facility] Last Admin: 03/03/17 07:50 Dose: 18 mcg Tramadol HCl (Ultram) 25 mg PO Q8 PRN PRN Reason: Pain, severe (8-10) Last Admin: 03/02/17 10:48 Dose: 25 mg Vitamin B Complex/Vit C/Folic Acid (Nephro-Anival) 1 tab PO DAILY [facility] Last Admin: 03/03/17 10:46 Dose: 1 tab - Labs Labs: 03/02/17 08:47 03/02/17 08:47 PT 12.1 SECONDS (9.7-12.2) 02/25/17 17:47 INR 1.1 02/25/17 17:47 APTT 28 SECONDS (21-34) 02/25/17 17:47 - Additional Findings Additional findings: - Constitutional Appears: Well, Non-toxic, No Acute Distress - Head Exam Head Exam: ATRAUMATIC, NORMAL INSPECTION, NORMOCEPHALIC - Eye Exam Eye Exam: EOMI Pupil Exam: NORMAL ACCOMODATION - ENT Exam ENT Exam: Mucous Membranes Moist - Respiratory Exam Respiratory Exam: Clear to Ausculation Bilateral, NORMAL BREATHING PATTERN - Cardiovascular Exam Cardiovascular Exam: REGULAR RHYTHM - GI/Abdominal Exam GI & Abdominal Exam: Soft, Normal Bowel Sounds. absent: Distended, Tenderness - Extremities Exam Extremities Exam: Joint Swelling. absent: Tenderness Additional comments: Swelling in left arm over fistula with small tense bullae. Erythema over fistula site. - Neurological Exam Neurological Exam: Alert, Awake, Oriented x3 - Psychiatric Exam Psychiatric exam: Normal Affect, Normal Mood - Skin Skin Exam: Dry, Intact, Normal Color, Warm Assessment and Plan - Assessment and Plan (Free Text) Assessment: Malfunction AV site (L.Forearm) * Vascular Surgery (Dr. Reece) * AV Fistulogram showed central vv stenosis. Angioplasty was performed. Ok to resume dialysis per Dr. Altman * Nephrology (Dr. Alegre) * Dialysis MWF Left Upper extremity swelling * Appears swollen, erythema, no open wounds * US: Cellulitis +/- abscess * Zosyn 2.25 IV Q 8 * Bacteremia - Gram + Cocci, repeat BC showed coag negative staph * Blood cultures negative x24h * ID ([facility]) * Vanco 1g MWF with dialysis * Needs outpatient repeat US on 03/06 * Continue antibiotics for 6 weeks outpatient * F/U MRI (03/03) Shortness of breathe * Chest xray * interval improvement in the right lower lobe * Persistent focal opacity/infiltrate at the right lower lobe * Cardiomegaly and pulmonary vascular congestion * PRN albuterol * Advair 250/50 1 puff INH Q 12 * Spiriva 18mcg INH daily * Oxygen 2 Liter PRN Coccyydynia * Sacrum and Coccyx Xray * no evidence of acute fracture or subluxation. * Degenerative changes and osteophyte formation * they dont make donut hole pillows any more according to nurse. Will write for one so he can purchase as an outpatient. In the mean time will tell him to offload by moving positions and will control pain. Ordered a bedside camode so he can sit up without pressure on his coccyx if he would like * Tylenol 650mg PO Q 6 H PRN * Ultram 25mg Q8 PRN History of Atrial fibrillation * Lopressor 50mg PO Q12H * HASBLED score = 3; correlates with 5.8% risk of major bleed- contraindication for anticoagulation * NADIRA score = 1 (no CHF, + HTN, does not meet age, not diabetic) * Echocardiogram: left ventricle systolic function is normal, EF:60-65%, diastolic dysfunction. Hypertension * Metoprolol 50 mg po BID Hyperlipidemia * Holding Statin for LDL less than 40 * Lipid panel: TG 162, Chol 178, LDL <30, HDL 27 Pancytopenia * Heme (Dr. Tony Brantley) * Prior history of lymphoma <Gaston Hawkins - Last Filed: 03/03/17 19:46> Objective - Vital Signs/Intake and Output Vital Signs (last 24 hours): Temp Pulse Resp BP Pulse Ox 97.6 F 71 19 140/84 97 03/03/17 12:20 03/03/17 12:20 03/03/17 12:20 03/03/17 12:20 03/03/17 12:20 Intake and Output: 03/03/17 03/04/17 18:59 06:59 Intake Total 500 Balance 500 - Medications Medications: Current Medications Acetaminophen (Tylenol 325mg Tab) 650 mg PO Q6 PRN PRN Reason: Pain, moderate (4-7) Last Admin: 03/01/17 20:09 Dose: 650 mg Albuterol (Ventolin Hfa 90 Mcg/Actuation (8 G)) 1 puff INH RQ6 PRN PRN Reason: Shortness of Breath Last Admin: 03/03/17 07:50 Dose: 1 puff Ergocalciferol (Drisdol 50,000 Intl Units Cap) 1 cap PO QWK [facility] Piperacillin Sod/Tazobactam Sod (Zosyn 2.25 Gm Iv Premix) 2.25 gm in 50 mls @ 200 mls/hr IVPB Q8H [facility] Last Admin: 03/03/17 17:43 Dose: 200 mls/hr Losartan Potassium (Cozaar) 100 mg PO DAILY [facility] Last Admin: 03/03/17 09:47 Dose: Not Given Metoprolol Tartrate (Lopressor) 50 mg PO Q12 [facility] Last Admin: 03/03/17 09:47 Dose: Not Given Rosuvastatin Calcium (Crestor) 5 mg PO HS [facility] Last Admin: 03/02/17 21:59 Dose: 5 mg Fluticasone/Salmeterol (Advair Diskus 250/50) 1 puff INH Q12H [facility] Last Admin: 03/03/17 19:19 Dose: 1 puff Tamsulosin HCl (Flomax) 0.4 mg PO DAILY [facility] Last Admin: 03/03/17 10:47 Dose: 0.4 mg Tiotropium [place] (Spiriva) 18 mcg INH RQD [facility] Last Admin: 03/03/17 07:50 Dose: 18 mcg Tramadol HCl (Ultram) 25 mg PO Q8 PRN PRN Reason: Pain, severe (8-10) Last Admin: 03/02/17 10:48 Dose: 25 mg Vitamin B Complex/Vit C/Folic Acid (Nephro-Anival) 1 tab PO DAILY [facility] Last Admin: 03/03/17 10:46 Dose: 1 tab - Labs Labs: 03/02/17 08:47 03/02/17 08:47 PT 12.1 SECONDS (9.7-12.2) 02/25/17 17:47 INR 1.1 02/25/17 17:47 APTT 28 SECONDS (21-34) 02/25/17 17:47 Attending/Attestation - Attestation I have personally seen and examined this patient.: Yes I have fully participated in the care of the patient.: Yes I have reviewed all pertinent clinical information, including history, physical exam and plan: Yes Notes (Text): 03/03/17 19:42 Patient was seen and examined at 1:15 PM 03/03/17 in HD Suite Exam, Assessment and Plan were thoroughly gone over with the Resident. Please note that the Assessment and Plan should also include: Hx COPD: Spiriva Hx Non-Hodgkin's Lymphoma: stable Hx BPH: Flomax F/U MRI Left Arm to determine if there actually is an abscess/phlegmon as noted on U/S Left Forearm 02/27/17. 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 Gaston Hawkins D.O.
--- NOTE | 2017-03-04 00:09 | PN ---
SUBJECTIVE: The patient went for MRI which he said was painful for him. He is still complaining of left shoulder pain. He feels no good. PHYSICAL EXAMINATION VITAL SIGNS: T-max is 97.6, pulse 71, blood pressure 140/84, respirations are 20. HEENT: Head is atraumatic and normocephalic. NECK: Supple. LUNGS: Clear. HEART: S1 and S2 regular. ABDOMEN: Soft and nontender. EXTREMITIES: Have no edema. Left forearm has swelling, and he has a fistula, and there are 2 small blisters noted. His micro culture came out coagulase-negative staph. Repeat cultures are pending, but they are negative from the fistula and the hemodialysis nurse told me that she had difficulty on him on the day when I saw her first time with this patient putting in the needle, and ultrasound showed small collection versus abscess, and since he has a fistula here, this was MRSE; hence we will continue with the vancomycin and we will follow to see what Dr. Altman wants to do or not do, and I would give him 6 weeks of vancomycin to cover for this infection and also want to see the MRI results. Levon Bradford MD
[2017-03-04] MEDS: Piperacill/Tazo 2.25gm in Dex 2.25 GM/50 ML BAG IVPB SCH ×3 (00:34→17:37)
[2017-03-04 08:06] LABS: BASO % 0.8 % (0.0-2.0); EOS # 0.4 K/uL (0.0-0.7); EOS % 7.4 % (0.0-4.0); HEMATOCRIT 34.6 % (35.0-51.0); LYMPH # 0.8 K/uL (1.0-4.3); LYMPH % 15.8 % (20.0-40.0); MEAN CORPUSCULAR HEMOGLOBIN 29.8 pg (27.0-31.0); MEAN CORPUSCULAR HGB CONC 32.8 g/dL (33.0-37.0); MEAN PLATELET VOLUME 11.3 fL (7.2-11.7); MONO # 0.5 K/uL (0.0-0.8); MONO % 10.7 % (0.0-10.0); RED CELL DISTRIBUTION WIDTH 17.9 % (11.5-14.5); WHITE BLOOD COUNT 4.8 K/uL (4.8-10.8)
[2017-03-04 08:19] LABS: POTASSIUM 4.4 mmol/L (3.6-5.2)
[2017-03-04 08:23] LABS: CALCIUM 9.8 mg/dl (8.6-10.4)
[2017-03-04] MEDS: Albuterol HFA 90 mcg/actuation (8 g) INH PRN (09:18)
[2017-03-04] MEDS: Tiotropium 18 mcg Cap For Inhalation INH SCH (09:18)
[2017-03-04] MEDS: Fluticasone-Salmeterol 250-50mcg Diskus INH SCH ×2 (09:18→20:12)
[2017-03-04] MEDS: Multivitamin Vitamin B Complex (Nephro-Vite) Tab PO SCH (09:28)
[2017-03-04] MEDS ORDERED: Ergocalciferol 50,000 Intl Units Cap PO SCH (10:00)
--- NOTE | 2017-03-04 10:01 | CP.PCM.PN ---
Subjective - Date & Time of Evaluation Date of Evaluation: 03/04/17 Time of Evaluation: 10:00 - Subjective Subjective: afebrile comfortable in bed ROS entirely negative states left arm swelling better Objective - Vital Signs/Intake and Output Vital Signs (last 24 hours): Temp Pulse Resp BP Pulse Ox 97.4 F L 78 209 H 163/88 H 96 03/04/17 00:00 03/04/17 00:00 03/04/17 00:00 03/04/17 00:00 03/04/17 00:00 Intake and Output: 03/04/17 03/04/17 06:59 18:59 Intake Total 450 Balance 450 - Medications Medications: Current Medications Acetaminophen (Tylenol 325mg Tab) 650 mg PO Q6 PRN PRN Reason: Pain, moderate (4-7) Last Admin: 03/01/17 20:09 Dose: 650 mg Albuterol (Ventolin Hfa 90 Mcg/Actuation (8 G)) 1 puff INH RQ6 PRN PRN Reason: Shortness of Breath Last Admin: 03/04/17 09:18 Dose: 1 puff Ergocalciferol (Drisdol 50,000 Intl Units Cap) 1 cap PO QWK [facility] Last Admin: 03/04/17 09:27 Dose: 1 cap Piperacillin Sod/Tazobactam Sod (Zosyn 2.25 Gm Iv Premix) 2.25 gm in 50 mls @ 200 mls/hr IVPB Q8H [facility] Last Admin: 03/04/17 08:51 Dose: 200 mls/hr Vancomycin HCl 1 gm/ Sodium (Chloride) 250 mls @ 167 mls/hr IVPB MWF [facility] Losartan Potassium (Cozaar) 100 mg PO DAILY [facility] Last Admin: 03/04/17 09:28 Dose: 100 mg Metoprolol Tartrate (Lopressor) 50 mg PO Q12 [facility] Last Admin: 03/04/17 09:28 Dose: 50 mg Rosuvastatin Calcium (Crestor) 5 mg PO HS [facility] Last Admin: 03/03/17 21:59 Dose: 5 mg Fluticasone/Salmeterol (Advair Diskus 250/50) 1 puff INH Q12H [facility] Last Admin: 03/04/17 09:18 Dose: 1 puff Tamsulosin HCl (Flomax) 0.4 mg PO DAILY [facility] Last Admin: 03/04/17 09:27 Dose: 0.4 mg Tiotropium [place] (Spiriva) 18 mcg INH RQD [facility] Last Admin: 03/04/17 09:18 Dose: 18 mcg Tramadol HCl (Ultram) 25 mg PO Q8 PRN PRN Reason: Pain, severe (8-10) Last Admin: 03/02/17 10:48 Dose: 25 mg Vitamin B Complex/Vit C/Folic Acid (Nephro-Anival) 1 tab PO DAILY [facility] Last Admin: 03/04/17 09:28 Dose: 1 tab - Labs Labs: 03/04/17 07:50 03/04/17 07:50 PT 12.1 SECONDS (9.7-12.2) 02/25/17 17:47 INR 1.1 02/25/17 17:47 APTT 28 SECONDS (21-34) 02/25/17 17:47 - Constitutional Appears: No Acute Distress - Eye Exam Eye Exam: Normal appearance - ENT Exam ENT Exam: Mucous Membranes Moist - Respiratory Exam Respiratory Exam: Clear to Ausculation Bilateral, NORMAL BREATHING PATTERN - Cardiovascular Exam Cardiovascular Exam: REGULAR RHYTHM - GI/Abdominal Exam GI & Abdominal Exam: Soft. absent: Distended, Tenderness - Extremities Exam Extremities Exam: absent: Calf Tenderness - Psychiatric Exam Psychiatric exam: Normal Affect - Skin Skin Exam: Dry Assessment and Plan (1) Arm swelling Status: Acute (2) Anemia due to chronic disease treated with erythropoietin Status: Acute (3) ESRD (end stage renal disease) on dialysis Status: Acute (4) Essential hypertension Status: Acute - Assessment and Plan (Free Text) Assessment: follow ID recommendations next dialysis 03/06
--- NOTE | 2017-03-04 11:47 | CP.PCM.PN ---
<Deysi Whalen - Last Filed: 03/04/17 17:14> Subjective - Date & Time of Evaluation Date of Evaluation: 03/04/17 Time of Evaluation: 11:45 - Subjective Subjective: Patient seen and examined at bedside. Patient Doing well with no new complaints at this time. Patient is still having coccyx pain but denies pain anywhere else including the left arm at his dialysis site. Patient is wanting a donut pillow but is worried he will not be able to afford one. Patient denies fever, chills, CP, SOB, AP, C/D, N/V. Objective - Vital Signs/Intake and Output Vital Signs (last 24 hours): Temp Pulse Resp BP Pulse Ox 97.4 F L 78 209 H 163/88 H 96 03/04/17 00:00 03/04/17 00:00 03/04/17 00:00 03/04/17 00:00 03/04/17 00:00 Intake and Output: 03/04/17 03/04/17 06:59 18:59 Intake Total 450 Balance 450 - Medications Medications: Current Medications Acetaminophen (Tylenol 325mg Tab) 650 mg PO Q6 PRN PRN Reason: Pain, moderate (4-7) Last Admin: 03/01/17 20:09 Dose: 650 mg Albuterol (Ventolin Hfa 90 Mcg/Actuation (8 G)) 1 puff INH RQ6 PRN PRN Reason: Shortness of Breath Last Admin: 03/04/17 09:18 Dose: 1 puff Ergocalciferol (Drisdol 50,000 Intl Units Cap) 1 cap PO QWK [facility] Last Admin: 03/04/17 09:27 Dose: 1 cap Piperacillin Sod/Tazobactam Sod (Zosyn 2.25 Gm Iv Premix) 2.25 gm in 50 mls @ 200 mls/hr IVPB Q8H [facility] Last Admin: 03/04/17 08:51 Dose: 200 mls/hr Vancomycin HCl 1 gm/ Sodium (Chloride) 250 mls @ 167 mls/hr IVPB MWF [facility] Losartan Potassium (Cozaar) 100 mg PO DAILY [facility] Last Admin: 03/04/17 09:28 Dose: 100 mg Metoprolol Tartrate (Lopressor) 50 mg PO Q12 [facility] Last Admin: 03/04/17 09:28 Dose: 50 mg Rosuvastatin Calcium (Crestor) 5 mg PO HS [facility] Last Admin: 03/03/17 21:59 Dose: 5 mg Fluticasone/Salmeterol (Advair Diskus 250/50) 1 puff INH Q12H [facility] Last Admin: 03/04/17 09:18 Dose: 1 puff Tamsulosin HCl (Flomax) 0.4 mg PO DAILY [facility] Last Admin: 03/04/17 09:27 Dose: 0.4 mg Tiotropium [place] (Spiriva) 18 mcg INH RQD [facility] Last Admin: 03/04/17 09:18 Dose: 18 mcg Tramadol HCl (Ultram) 25 mg PO Q8 PRN PRN Reason: Pain, severe (8-10) Last Admin: 03/02/17 10:48 Dose: 25 mg Vitamin B Complex/Vit C/Folic Acid (Nephro-Anival) 1 tab PO DAILY [facility] Last Admin: 03/04/17 09:28 Dose: 1 tab - Labs Labs: 03/04/17 07:50 03/04/17 07:50 PT 12.1 SECONDS (9.7-12.2) 02/25/17 17:47 INR 1.1 02/25/17 17:47 APTT 28 SECONDS (21-34) 02/25/17 17:47 - Additional Findings Additional findings: - Constitutional Appears: Well, Non-toxic, No Acute Distress - Head Exam Head Exam: ATRAUMATIC, NORMAL INSPECTION, NORMOCEPHALIC - Eye Exam Eye Exam: EOMI Pupil Exam: NORMAL ACCOMODATION - ENT Exam ENT Exam: Mucous Membranes Moist - Respiratory Exam Respiratory Exam: Clear to Ausculation Bilateral, NORMAL BREATHING PATTERN - Cardiovascular Exam Cardiovascular Exam: REGULAR RHYTHM - GI/Abdominal Exam GI & Abdominal Exam: Soft, Normal Bowel Sounds. absent: Distended, Tenderness - Extremities Exam Extremities Exam: Joint Swelling. absent: Tenderness Additional comments: Swelling in left arm over fistula with small tense bullae. Non erythematous. - Neurological Exam Neurological Exam: Alert, Awake, Oriented x3 - Psychiatric Exam Psychiatric exam: Normal Affect, Normal Mood - Skin Skin Exam: Dry, Intact, Normal Color, Warm Assessment and Plan - Assessment and Plan (Free Text) Assessment: Malfunction AV site (L.Forearm) * Vascular Surgery (Dr. Reece) * AV Fistulogram showed central vv stenosis. Angioplasty was performed. Ok to resume dialysis per Dr. Altman * Nephrology (Dr. Alegre) * Dialysis MWF Left Upper extremity swelling * Appears swollen, erythema, no open wounds * US: Cellulitis +/- abscess * Zosyn 2.25 IV Q 8 * Bacteremia - Gram + Cocci, repeat BC showed coag negative staph * Blood cultures negative x48h * ID (Suzette) * Vanco 1g MWF with dialysis * Needs outpatient repeat US on 03/06 * Continue antibiotics for 6 weeks outpatient * MRI (03/03): limited study 2/2 movement and lack of IV contrast; no evidence of abscess or fluid collection; Diffuse inflammatory changes more prominent at the anterior aspect of the proximal and mid portion of the left forearm. Diffuse increased signal of the soft tissues suggestive of inflammatory changes and myositis Shortness of breath * Chest xray * interval improvement in the right lower lobe * Persistent focal opacity/infiltrate at the right lower lobe * Cardiomegaly and pulmonary vascular congestion * PRN albuterol * Advair 250/50 1 puff INH Q 12 * Spiriva 18mcg INH daily * Oxygen 2 Liter PRN Coccyydynia * Sacrum and Coccyx Xray * no evidence of acute fracture or subluxation. * Degenerative changes and osteophyte formation * they dont make donut hole pillows any more according to nurse. Will write for one so he can purchase as an outpatient. In the mean time will tell him to offload by moving positions and will control pain. Ordered a bedside camode so he can sit up without pressure on his coccyx if he would like * Tylenol 650mg PO Q 6 H PRN * Ultram 25mg Q8 PRN Hx COPD * Spiriva Hx Non-Hodgkin's lymphoma * stable Hx BPH * Flomax History of Atrial fibrillation * Lopressor 50mg PO Q12H * HASBLED score = 3; correlates with 5.8% risk of major bleed- contraindication for anticoagulation * NADIRA score = 1 (no CHF, + HTN, does not meet age, not diabetic) * Echocardiogram: left ventricle systolic function is normal, EF:60-65%, diastolic dysfunction. Hypertension * Metoprolol 50 mg po BID * Norvasc 5 mg PO QD (added 03/04) Hyperlipidemia * Holding Statin for LDL less than 40 * Lipid panel: TG 162, Chol 178, LDL <30, HDL 27 Pancytopenia * Heme (Dr. Tony Brantley) * Prior history of lymphoma Disposition: discharge 03/05 pending negative blood cultures. <Gaston Hawkins - Last Filed: 03/04/17 19:48> Objective - Vital Signs/Intake and Output Vital Signs (last 24 hours): Temp Pulse Resp BP Pulse Ox 97.9 F 75 20 175/86 H 97 03/04/17 15:00 03/04/17 15:00 03/04/17 15:00 03/04/17 15:00 03/04/17 15:00 Intake and Output: 03/04/17 03/05/17 18:59 06:59 Intake Total 550 Balance 550 - Medications Medications: Current Medications Acetaminophen (Tylenol 325mg Tab) 650 mg PO Q6 PRN PRN Reason: Pain, moderate (4-7) Last Admin: 03/01/17 20:09 Dose: 650 mg Albuterol (Ventolin Hfa 90 Mcg/Actuation (8 G)) 1 puff INH RQ6 PRN PRN Reason: Shortness of Breath Last Admin: 03/04/17 09:18 Dose: 1 puff Amlodipine Besylate (Norvasc) 5 mg PO DAILY [facility] Ergocalciferol (Drisdol 50,000 Intl Units Cap) 1 cap PO QWK [facility] Last Admin: 03/04/17 09:27 Dose: 1 cap Piperacillin Sod/Tazobactam Sod (Zosyn 2.25 Gm Iv Premix) 2.25 gm in 50 mls @ 200 mls/hr IVPB Q8H [facility] Last Admin: 03/04/17 17:37 Dose: 200 mls/hr Vancomycin HCl 1 gm/ Sodium (Chloride) 250 mls @ 167 mls/hr IVPB MWF [facility] Losartan Potassium (Cozaar) 100 mg PO DAILY [facility] Last Admin: 03/04/17 09:28 Dose: 100 mg Metoprolol Tartrate (Lopressor) 50 mg PO Q12 [facility] Last Admin: 03/04/17 09:28 Dose: 50 mg Rosuvastatin Calcium (Crestor) 5 mg PO HS [facility] Last Admin: 03/03/17 21:59 Dose: 5 mg Fluticasone/Salmeterol (Advair Diskus 250/50) 1 puff INH Q12H [facility] Last Admin: 03/04/17 09:18 Dose: 1 puff Tamsulosin HCl (Flomax) 0.4 mg PO DAILY [facility] Last Admin: 03/04/17 09:27 Dose: 0.4 mg Tiotropium [place] (Spiriva) 18 mcg INH RQD [facility] Last Admin: 03/04/17 09:18 Dose: 18 mcg Tramadol HCl (Ultram) 25 mg PO Q8 PRN PRN Reason: Pain, severe (8-10) Last Admin: 03/02/17 10:48 Dose: 25 mg Vitamin B Complex/Vit C/Folic Acid (Nephro-Anival) 1 tab PO DAILY [facility] Last Admin: 03/04/17 09:28 Dose: 1 tab - Labs Labs: 03/04/17 07:50 03/04/17 07:50 PT 12.1 SECONDS (9.7-12.2) 02/25/17 17:47 INR 1.1 02/25/17 17:47 APTT 28 SECONDS (21-34) 02/25/17 17:47 Attending/Attestation - Attestation I have personally seen and examined this patient.: Yes I have fully participated in the care of the patient.: Yes I have reviewed all pertinent clinical information, including history, physical exam and plan: Yes Notes (Text): 03/04/17 19:38 Patient was seen and examined at 5:15 PM 03/04/17 in HD Suite Exam, Assessment and Plan were thoroughly gone over with the Resident. 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 MRI Left Arm did NOT show any abscess/phlegmon as noted on U/S Left Forearm 02/27. Echocardiogram showed NORMAL LVSF, diastolic dysfunction, trace/mild tricuspid regurgitation, trace pulmonic valvular regurgitation. Blood Culture on 02/25/17 showed Coag Neg Staph. Repeat Blood Culture 03/01/17 is negative to date. As long as the repeat Blood Culture remains negative at 72 hours, Medicine Team will speak with ID Dr. Bradford concerning discharge planning. Vancomycin 1 gm IV post HD on for a total of 6 weeks ? Gaston Hawkins D.O.
[2017-03-05] MEDS: Piperacill/Tazo 2.25gm in Dex 2.25 GM/50 ML BAG IVPB SCH ×2 (01:29→10:29)
[2017-03-05 07:38] LABS: EOS # 0.5 K/uL (0.0-0.7); EOS % 9.8 % (0.0-4.0); HEMATOCRIT 31.7 % (35.0-51.0); LYMPH # 0.8 K/uL (1.0-4.3); LYMPH % 16.9 % (20.0-40.0); MEAN CELL VOLUME 90.1 fL (80.0-94.0); MEAN CORPUSCULAR HEMOGLOBIN 30.1 pg (27.0-31.0); MEAN CORPUSCULAR HGB CONC 33.4 g/dL (33.0-37.0); MEAN PLATELET VOLUME 10.5 fL (7.2-11.7); MONO # 0.5 K/uL (0.0-0.8); MONO % 10.2 % (0.0-10.0); RED CELL DISTRIBUTION WIDTH 17.8 % (11.5-14.5); WHITE BLOOD COUNT 4.7 K/uL (4.8-10.8)
[2017-03-05 08:00] LABS: POTASSIUM 4.4 mmol/L (3.6-5.2)
[2017-03-05 08:03] LABS: ALB/GLOB RATIO 1.6 (1.0-2.1); BILIRUBIN,TOTAL 0.7 mg/dL (0.2-1.3); TOTAL PROTEIN 6.4 g/dL (6.3-8.3)
[2017-03-05 08:04] LABS: CALCIUM 9.6 mg/dl (8.6-10.4)
[2017-03-05] MEDS: Fluticasone-Salmeterol 250-50mcg Diskus INH SCH (08:05)
[2017-03-05] MEDS: Tiotropium 18 mcg Cap For Inhalation INH SCH (08:05)
[2017-03-05 08:13] VITALS: PULSE 67
--- NOTE | 2017-03-05 09:45 | CP.PCM.PN ---
Subjective - Date & Time of Evaluation Date of Evaluation: 03/05/17 Time of Evaluation: 09:30 - Subjective Subjective: Hospitalist Progress Note Patient was see and examined at 9:30 AM 03/05/17 Currently upon FULL ROS NO n/v/d/c (last bowel movement was 03/04/17 NO burning/pain with urination NO paresthesias NO palpitations NO chest pain NO SOB NO headache NO changes in vision NO changes in hearing NO paresthesias Pain the Coccyx is much better and will be worsened by sitting for prolonger period of time NO other complaints upon FULL ROS Exam: HEENT: NCA, EOMI, PERRLA, NO cervical lymphadenopathy, NO thyromegaly, NO pharyngeal exudate/erythema, Moist oral mucosa and nasal turbinates Cardio: NS1 and NS2, NO M/R/G Resp: CTA B/L NO R/R/W GI: Central Obesity, Soft, NT, BSx4 reduced, NO guarding/rebound tenderness, NO HSM Ext: Capillary Refill is 2 seconds, NO edema, Pulses are strong and equal, Left ARM AVF Thrill Neuro: CN II through XII are grossly intact Assessments: Malfunction Left AVF Site 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 Repeat Blood Culture is negative to date and patient has been fever free for at least 48 hours. Patient will need a total of 6 weeks of Vancomycin 1 gm after HD on -- from 02/25/17. Awaiting to hear back from ID Dr. Bradford to see if patient is cleared for discharge from her standpoint and if so will discharge patient. ESRD on HD at [facility]: Nehrologist Dr. Alegre is following him there. Hx COPD Coccydynia: improved Hx AF: NO anticoagulation because of HASBLED Score of 3 and the history of Pancytopenia/Thrombocytopenia Secondary to NonHodgkin's Lymphoma Hx HTN Hx HLD: LDL was < 30 in August 2016 therefore Statin was held. He will need repeat repeat Lipid Panel with his PMD Dr. Meraz Hx NonHodgkin's Lymphoma Hx BPH The following instructions were explained to patient and copy of these instructions were ordered to be given to patient upon discharge: 1). Schedule follow up with your Primary Care Physician Dr. Meraz to take place in the next 7 days so that he can continue to coordinate your care for Cardiology (history of Atrial Fibrillation), Vascular Surgery (follow up with Dr. Anselmo Altman for your history of Right and Left Arm Dialysis Fistula), Hematology/Oncology (history of Non-Hodgkin's Lymphoma), Nephrology (history of End Stage Renal Disease on Hemodialysis), Urology (history of enlarged prostate) , Repeat Blood Work (to remeasure your cholesterol to see if you can restart your cholesterol medication as right now you are not on one as last cholesterol level showed it was too low). 2). Continue to follow your Dialysis schedule at [facility] on Mondays, Wednesdays , and Fridays. 3). The following prescriptions were provided to you and you must have them filled at your pharmacy and take as directed: Advair 250/50 mcg, 1 Puff PO INH every 12 hours (9 AM and 9 PM), Disp #1, No refills Spiriva 18 mcg, 2 PO INH of 1 capsulre once a day via [employer] Inhalation Device (3 PM), Disp #30, NO refills Ventolin 90 mcg/actuation, 1 Puff PO every 6 hours ONLY as needed for Shortness Of Breath/Wheezing, Disp #1, NO refills Metoprolol 50 mg, 1 tablet by mouth 2x/day (9 AM and 9 PM), Disp #60, NO refills Cozaar 100 mg, 1 tablet by mouth 1x/day (1 PM), Disp #30, NO refills Norvasc 10 mg, 1 tablet by mouth 1x/day (6 PM), Disp #30, NO refills Flomax 0.4 mg, 1 tablet by mouth 1x/day (9 AM), Disp #30 4). The following prescription you must take with with you to [facility] on your next Dialysis day which is Monday03/06/17: Vancomycin 1 gm IV after dailysis on Monday, Monday, and Monday with last dose on Monday04/07/17. Dx: Coagulase Neg Staph Bactermia. 5). Please take care and be well. Gaston Hawkins D.O. Objective - Vital Signs/Intake and Output Vital Signs (last 24 hours): Temp Pulse Resp BP Pulse Ox 98 F 67 21 144/77 95 03/05/17 08:13 03/05/17 08:13 03/05/17 08:13 03/05/17 08:13 03/05/17 08:13 - Medications Medications: Current Medications Acetaminophen (Tylenol 325mg Tab) 650 mg PO Q6 PRN PRN Reason: Pain, moderate (4-7) Last Admin: 03/01/17 20:09 Dose: 650 mg Albuterol (Ventolin Hfa 90 Mcg/Actuation (8 G)) 1 puff INH RQ6 PRN PRN Reason: Shortness of Breath Last Admin: 03/04/17 09:18 Dose: 1 puff Amlodipine Besylate (Norvasc) 5 mg PO DAILY [facility] Last Admin: 03/04/17 17:45 Dose: 5 mg Ergocalciferol (Drisdol 50,000 Intl Units Cap) 1 cap PO QWK [facility] Last Admin: 03/04/17 09:27 Dose: 1 cap Piperacillin Sod/Tazobactam Sod (Zosyn 2.25 Gm Iv Premix) 2.25 gm in 50 mls @ 200 mls/hr IVPB Q8H [facility] Last Admin: 03/05/17 01:29 Dose: 200 mls/hr Vancomycin HCl 1 gm/ Sodium (Chloride) 250 mls @ 167 mls/hr IVPB MWF [facility] Losartan Potassium (Cozaar) 100 mg PO DAILY [facility] Last Admin: 03/04/17 09:28 Dose: 100 mg Metoprolol Tartrate (Lopressor) 50 mg PO Q12 [facility] Last Admin: 03/04/17 22:03 Dose: 50 mg Rosuvastatin Calcium (Crestor) 5 mg PO HS [facility] Last Admin: 03/04/17 22:03 Dose: 5 mg Fluticasone/Salmeterol (Advair Diskus 250/50) 1 puff INH Q12H [facility] Last Admin: 03/05/17 08:05 Dose: 1 puff Tamsulosin HCl (Flomax) 0.4 mg PO DAILY [facility] Last Admin: 03/04/17 09:27 Dose: 0.4 mg Tiotropium [place] (Spiriva) 18 mcg INH RQD [facility] Last Admin: 03/05/17 08:05 Dose: 18 mcg Tramadol HCl (Ultram) 25 mg PO Q8 PRN PRN Reason: Pain, severe (8-10) Last Admin: 03/02/17 10:48 Dose: 25 mg Vitamin B Complex/Vit C/Folic Acid (Nephro-Anival) 1 tab PO DAILY [facility] Last Admin: 03/04/17 09:28 Dose: 1 tab - Labs Labs: 03/05/17 07:25 03/05/17 07:25 PT 12.1 SECONDS (9.7-12.2) 02/25/17 17:47 INR 1.1 02/25/17 17:47 APTT 28 SECONDS (21-34) 02/25/17 17:47
[2017-03-05] MEDS: Multivitamin Vitamin B Complex (Nephro-Vite) Tab PO SCH (10:33)
--- NOTE | 2017-03-05 13:27 | CP.PCM.DIS ---
Provider - Provider Date of Admission: 02/28/17 07:26 Attending physician: Gaston Hawkins MD Time Spent in preparation of Discharge (in minutes): 35 Diagnosis - Discharge Diagnosis (1) Cellulitis of left arm Status: Acute (2) AV fistula occlusion Status: Acute (3) Chronic renal disease Status: Acute (4) Hypertension Status: Chronic Hospital Course - Lab Results Lab Results: Micro Results 03/01/17 19:00 Blood-Venous Blood Culture - Preliminary NO GROWTH AFTER 3 DAYS 03/01/17 18:30 Blood-Venous Blood Culture - Preliminary NO GROWTH AFTER 3 DAYS 02/25/17 17:40 Blood Blood Culture - Final NO GROWTH AFTER 5 DAYS 02/25/17 17:40 Blood Gram Stain - Final TEST NOT PERFORMED 02/25/17 16:45 Blood S.aureus & Coag-Neg Staph PNA FISH - Final 02/25/17 16:45 Blood Blood Culture - Final Coagulase Neg Staphylococcus 02/25/17 16:45 Blood Gram Stain - Final Most Recent Lab Values WBC 4.7 K/uL (4.8-10.8) L 03/05/17 07:25 RBC 3.52 Mil/uL (4.40-5.90) L 03/05/17 07:25 Hgb 10.6 g/dL (12.0-18.0) L 03/05/17 07:25 Hct 31.7 % (35.0-51.0) L 03/05/17 07:25 MCV 90.1 fL (80.0-94.0) 03/05/17 07:25 MCH 30.1 pg (27.0-31.0) 03/05/17 07:25 MCHC 33.4 g/dL (33.0-37.0) 03/05/17 07:25 RDW 17.8 % (11.5-14.5) H 03/05/17 07:25 Plt Count 78 K/uL (130-400) L 03/05/17 07:25 MPV 10.5 fL (7.2-11.7) 03/05/17 07:25 Neut % (Auto) 62.1 % (50.0-75.0) 03/05/17 07:25 Lymph % (Auto) 16.9 % (20.0-40.0) L 03/05/17 07:25 [place] % (Auto) 10.2 % (0.0-10.0) H 03/05/17 07:25 Eos % (Auto) 9.8 % (0.0-4.0) H 03/05/17 07:25 Baso % (Auto) 1.0 % (0.0-2.0) 03/05/17 07:25 Neut # 2.9 K/uL (1.8-7.0) 03/05/17 07:25 Lymph # 0.8 K/uL (1.0-4.3) L 03/05/17 07:25 [place] # 0.5 K/uL (0.0-0.8) 03/05/17 07:25 Eos # 0.5 K/uL (0.0-0.7) 03/05/17 07:25 Baso # 0.0 K/uL (0.0-0.2) 03/05/17 07:25 PT 12.1 SECONDS (9.7-12.2) 02/25/17 17:47 INR 1.1 02/25/17 17:47 APTT 28 SECONDS (21-34) 02/25/17 17:47 Sodium 141 mmol/L (132-148) 03/05/17 07:25 Potassium 4.4 mmol/L (3.6-5.2) 03/05/17 07:25 Chloride 96 mmol/L (98-107) L 03/05/17 07:25 Carbon Dioxide 23 mmol/L (22-30) 03/05/17 07:25 Anion Gap 26 (10-20) H 03/05/17 07:25 BUN 49 mg/dL (9-20) H 03/05/17 07:25 Creatinine 9.3 MG/DL (0.8-1.5) H* D 03/05/17 07:25 Est GFR ( Amer) 7 03/05/17 07:25 Est GFR (Non-Af Amer) 6 03/05/17 07:25 Random Glucose 79 mg/dL (75-110) 03/05/17 07:25 Calcium 9.6 mg/dl (8.6-10.4) 03/05/17 07:25 Phosphorus 6.1 mg/dL (2.5-4.5) H 02/27/17 15:49 Magnesium 2.4 mg/dL (1.6-2.3) H 02/27/17 15:49 Total Bilirubin 0.7 mg/dL (0.2-1.3) 03/05/17 07:25 AST 20 U/L (17-59) 03/05/17 07:25 ALT 28 U/L (21-72) 03/05/17 07:25 Alkaline Phosphatase 49 U/L (38-126) 03/05/17 07:25 Total Protein 6.4 g/dL (6.3-8.3) 03/05/17 07:25 Albumin 3.9 g/dL (3.5-5.0) 03/05/17 07:25 Globulin 2.5 gm/dL (2.2-3.9) 03/05/17 07:25 Albumin/Globulin Ratio 1.6 (1.0-2.1) 03/05/17 07:25 25-OH Vitamin D Total 86.4 NG/ML (30.0-100.0) 03/05/17 11:11 Random Vancomycin 10.27 ug/mL 03/04/17 11:02 - Hospital Course Hospital Course: Upon admission: Patient is a 61 y/o M with PMHx of ESRD on dialysis since 2014, htn, lymphoma ( treated in 2010), bph who presents today for 10 days of left arm edema and erythema over his left av fistula site. Patient also has been having coccyx pain for 10 days which he saw Dr. Meraz for who gave him a medication and recommended xray if pain did not subside. Patient rates left arm pain 6/10. Patient also says he experience SOB sometimes with walking about 6-7 blocks or walking up one flight of stairs. Patient has a mild cough which he says is chronic. Patient denies and fever, chills, dizziness, headache, shortness of breath, abdominal pain, nausea, vomiting, diarrhea, or constipation. Patient says he is able to urinate normally and has no urgency, frequency or pain with urination. Hospital Course: Patient was admitted for malfunctioning AV fistula with overlying cellulitis. Vascular Surgery was consulted (Dr. Reece). US of upper extremity showed cellulitis with possibility of abscess. Zosyn 2.25 IV Q 8 was started. AV fistulogram showed central vein stenosis. Angioplasty was performed. Dr. Altman cleared for resuming dialysis. Nephrology (Dr. Alegre) was consulted for dialysis on MWF schedule. Patient was found to be bacteremic with blood cultures positive for Coagulase negative staph. ID was consulted (Dr. Titus) who prescribed Vanco 1g MWF with dialysis. Repeat blood cultures were negative. MRI of the upper extremity (03/03) showed no evidence of abscess or fluid collection; diffuse inflammatory changes more prominent at the anterior aspect of the proximal and mid portion of the left forearm; diffuse increased signal of the soft tissues suggestive of inflammatory changes and myositis. Patients shortness of breath was addressed with a chest xray which showed interval improvement in the right lower lobe; persistent focal opacity/ infiltrate at the right lower lobe; cardiomegaly and pulmonary vascular congestion. Patient was treated with PRN albuterol, Advair 250/50 1 puff INH Q 12, Spiriva 18mcg INH daily, and Oxygen 2 Liter PRN. Patients coccyx pain was evaluated with sacral and coccyx Xray which showed no evidence of acute fracture or subluxation; degenerative changes and osteophyte formation were noted. Patient wanted a donut sacral pillow which we don not have at the hospital so the patient was instructed to offload by moving positions. A bedside camode was ordered so he could sit up without pressure on his coccyx if he wanted. Patient was given Tylenol 650mg PO Q 6 H PRN and Ultram 25mg Q8 PRN for pain. Patient has a history of COPD which was treated with Spiriva. Patient has a history of Non-Hodgkin's lymphoma which was stable and did not required treatment during his stay. Heme/Onc was consulted (Dr. Brantley) to follow the pancytopenia resulting from his lymphoma. CBC was monitored daily. Patient has a history of BPH which was treated with Flomax. Patient has a history of Atrial fibrillation which was treated with Lopressor 50mg PO Q12H. Patients HASBLED score = 3; correlates with 5.8% risk of major bleed which was a contraindication for anticoagulation. His NADIRA score = 1 (no CHF, + HTN, does not meet age, not diabetic). Echocardiogram showed left ventricle systolic function is normal, EF:60-65%, diastolic dysfunction. Patient has a history of hypertension which was treated with Metoprolol 50 mg po BID and Norvasc 5 mg PO QD was added 03/04 due to uncontrolled HTN. Patient has a history of hyperlipidemia for which we held the statin since his LDL was less than 40 (Lipid panel: TG 162, Chol 178, LDL <30, HDL 27). Upon Discharge: Patient was seen and examined at bedside. Patient is feeling much better today and is excited to be going home. Patient is clear for discharge per Dr. Hawkins. The following instructions were explained to patient and copy of these instructions were ordered to be given to patient upon discharge: 1). Schedule follow up with your Primary Care Physician Dr. Meraz to take place in the next 7 days so that he can continue to coordinate your care for Cardiology (history of Atrial Fibrillation), Vascular Surgery (follow up with Dr. Anselmo Altman for your history of Right and Left Arm Dialysis Fistula), Hematology/Oncology (history of Non-Hodgkin's Lymphoma), Nephrology (history of End Stage Renal Disease on Hemodialysis), Urology (history of enlarged prostate) , Repeat Blood Work (to remeasure your cholesterol to see if you can restart your cholesterol medication as right now you are not on one as last cholesterol level showed it was too low). 2). Continue to follow your Dialysis schedule at [facility] on Mondays, Wednesdays , and Fridays. 3). The following prescriptions were provided to you and you must have them filled at your pharmacy and take as directed: Advair 250/50 mcg, 1 Puff PO INH every 12 hours (9 AM and 9 PM), Disp #1, No refills Spiriva 18 mcg, 2 PO INH of 1 capsulre once a day via HandiHaler Inhalation Device (3 PM), Disp #30, NO refills Ventolin 90 mcg/actuation, 1 Puff PO every 6 hours ONLY as needed for Shortness Of Breath/Wheezing, Disp #1, NO refills Metoprolol 50 mg, 1 tablet by mouth 2x/day (9 AM and 9 PM), Disp #60, NO refills Cozaar 100 mg, 1 tablet by mouth 1x/day (1 PM), Disp #30, NO refills Norvasc 10 mg, 1 tablet by mouth 1x/day (6 PM), Disp #30, NO refills Flomax 0.4 mg, 1 tablet by mouth 1x/day (9 AM), Disp #30 4). The following prescription you must take with with you to [facility] on your next Dialysis day which is Monday03/06/17: Vancomycin 1 gm IV after dailysis on Monday, Monday, and Monday with last dose on Monday04/07/17. Dx: Coagulase Neg Staph Bactermia. 5). Please take care and be well. Please note this is a summary of events. For more details, please see complete medical record. Discharge Exam - Head Exam Head Exam: NORMAL INSPECTION - Additional Findings Additional findings: - Additional Findings Additional findings: - Constitutional Appears: Well, Non-toxic, No Acute Distress - Head Exam Head Exam: ATRAUMATIC, NORMAL INSPECTION, NORMOCEPHALIC - Eye Exam Eye Exam: EOMI Pupil Exam: NORMAL ACCOMODATION - ENT Exam ENT Exam: Mucous Membranes Moist - Respiratory Exam Respiratory Exam: Clear to Ausculation Bilateral, NORMAL BREATHING PATTERN - Cardiovascular Exam Cardiovascular Exam: REGULAR RHYTHM - GI/Abdominal Exam GI & Abdominal Exam: Soft, Normal Bowel Sounds. absent: Distended, Tenderness - Extremities Exam Extremities Exam: Joint Swelling. absent: Tenderness Additional comments: Swelling in left arm over fistula with small tense bullae. Non erythematous. - Neurological Exam Neurological Exam: Alert, Awake, Oriented x3 - Psychiatric Exam Psychiatric exam: Normal Affect, Normal Mood - Skin Skin Exam: Dry, Intact, Normal Color, Warm Discharge Plan - Discharge Medications Prescriptions: Albuterol HFA [Ventolin HFA 90 mcg/actuation (8 g)] 1 puff INH RQ6 PRN #1 inhaler PRN Reason: Shortness Of Breath amLODIPine [Norvasc] 10 mg PO DAILY #30 tab Fluticasone/Salmeterol 250/50 [Advair Diskus 250/50] 1 puff INH Q12H #1 puff Losartan [Cozaar] 100 mg PO DAILY #30 tab Metoprolol Tartrate [Lopressor] 50 mg PO Q12 #60 tab Tamsulosin [Flomax] 0.4 mg PO DAILY #30 cap Tiotropium [Spiriva] 18 mcg INH RQD #30 cap - Follow Up Plan Condition: FAIR Disposition: HOME/ ROUTINE Additional Instructions: The following instructions were explained to patient and copy of these instructions were ordered to be given to patient upon discharge: 1). Schedule follow up with your Primary Care Physician Dr. Meraz to take place in the next 7 days so that he can continue to coordinate your care for Cardiology (history of Atrial Fibrillation), Vascular Surgery (follow up with Dr. Anselmo Altman for your history of Right and Left Arm Dialysis Fistula), Hematology/Oncology (history of Non-Hodgkin's Lymphoma), Nephrology (history of End Stage Renal Disease on Hemodialysis), Urology (history of enlarged prostate) , Repeat Blood Work (to remeasure your cholesterol to see if you can restart your cholesterol medication as right now you are not on one as last cholesterol level showed it was too low). 2). Continue to follow your Dialysis schedule at [facility] on Mondays, Wednesdays , and Fridays. 3). The following prescriptions were provided to you and you must have them filled at your pharmacy and take as directed: Advair 250/50 mcg, 1 Puff PO INH every 12 hours (9 AM and 9 PM), Disp #1, No refills Spiriva 18 mcg, 2 PO INH of 1 capsulre once a day via HandiHaler Inhalation Device (3 PM), Disp #30, NO refills Ventolin 90 mcg/actuation, 1 Puff PO every 6 hours ONLY as needed for Shortness Of Breath/Wheezing, Disp #1, NO refills Metoprolol 50 mg, 1 tablet by mouth 2x/day (9 AM and 9 PM), Disp #60, NO refills Cozaar 100 mg, 1 tablet by mouth 1x/day (1 PM), Disp #30, NO refills Norvasc 10 mg, 1 tablet by mouth 1x/day (6 PM), Disp #30, NO refills Flomax 0.4 mg, 1 tablet by mouth 1x/day (9 AM), Disp #30 4). The following prescription you must take with with you to [facility] on your next Dialysis day which is Monday03/06/17: Vancomycin 1 gm IV after dailysis on Monday, Monday, and Monday with last dose on Monday04/07/17. Dx: Coagulase Neg Staph Bactermia. 5). Please take care and be well.
[2017-03-05] MEDS: Tramadol 25 mg PO PRN (13:30)
[2017-03-05 17:43] VITALS: BP 148/72; RESP 20; TEMP 97.2; O2SAT 97
--- NOTE | 2017-03-06 08:46 | VASCLAB ---
PROCEDURE: Left Upper Extremity Venous Duplex Exam HISTORY: left arm swelling PRIORS: None. TECHNIQUE: Left upper extremity, internal jugular, subclavian, axillary, brachial, ulnar, radial, basilic and upper cephalic veins were evaluated. Flow was assessed with color Doppler, compressibility, assessment of phasic flow and augmentation response. Report prepared by NUSRAT Ferreira FINDINGS: LEFT: 1. Internal Jugular: 1.1. Compressibility - Fully compressible: Thrombus - None : Flow - Phasic: Augmentation -Normal: Reflux - None. 2. Subclavian: 2.1. Compressibility - Incompressible: Thrombus - None : Flow - Phasic: Augmentation -Normal: Reflux - None. 3. Axillary: 3.1. Compressibility - Fully compressible: Thrombus - None : Flow - Phasic: Augmentation -Normal: Reflux - None. 4. Brachial: 4.1. Compressibility - Fully compressible: Thrombus - None: Flow - Phasic: Augmentation -Normal: Reflux - None. 5. Ulnar: 5.1. Compressibility - Fully compressible: Thrombus - None: Flow - Phasic: Augmentation -Normal: Reflux - None. 6. Radial: 6.1. Compressibility - Fully compressible: Thrombus - None: Flow - Phasic: Augmentation - Normal: Reflux - None. 7. Cephalic: 7.1. Compressibility - Fully compressible: Thrombus - None: Flow - Phasic: Augmentation -Normal: Reflux - None. 8. Basilic: 8.1. Compressibility - Fully compressible: Thrombus - None: Flow - Phasic: Augmentation -Normal: Reflux - None. OTHER FINDINGS: Left: The subclavian vein was difficult to compress however, it was patent with color fill and doppler analysis. IMPRESSION: Left: No evidence of vein thrombosis of the left upper extremity with excellent venous flow. Normal valve function noted of the left side. Normal venous flow noted in the right internal jugular and right subclavian veins.
== END 2017-03-05 17:00 | disposition home or self-care (01) | DRG 550 ==
LOC: C.ER 11:11 → C.9E 15:41 → C.3T 18:59 → OBSVTOIN 02-28 07:26
PROVIDERS: ADMIT Family Medicine; ATTEND Family Medicine
PROC: 057Y3ZZ Dilation of Upper Vein, Percutaneous Approach (ICD-10-PCS; principal; 2017-02-28)
PROC: 5A1D60Z (ICD-10-PCS; 2017-02-28)
DX: T82.510A Breakdown (mechanical) of surgically created arteriovenous fistula, initial encounter (principal); R78.81 Bacteremia; D61.818 Other pancytopenia; N18.6 End stage renal disease; I12.0 Hypertensive chronic kidney disease with stage 5 chronic kidney disease or end stage renal disease; K74.60 Unspecified cirrhosis of liver; L03.114 Cellulitis of left upper limb; J44.9 Chronic obstructive pulmonary disease, unspecified; I87.1 Compression of vein; B95.61 Methicillin susceptible Staphylococcus aureus infection as the cause of diseases classified elsewhere; N40.0 Benign prostatic hyperplasia without lower urinary tract symptoms; D63.1 Anemia in chronic kidney disease; E78.00 Pure hypercholesterolemia, unspecified; I34.0 Nonrheumatic mitral (valve) insufficiency; I48.91 Unspecified atrial fibrillation; K59.09 Other constipation; M53.3 Sacrococcygeal disorders, not elsewhere classified; N28.1 Cyst of kidney, acquired; Y71.2 Prosthetic and other implants, materials and accessory cardiovascular devices associated with adverse incidents; Z79.82 Long term (current) use of aspirin; Z85.46 Personal history of malignant neoplasm of prostate; Z99.2 Dependence on renal dialysis; Z92.21 Personal history of antineoplastic chemotherapy; Z85.72 Personal history of non-Hodgkin lymphomas

== ENCOUNTER 2017-05-13 22:54 | Emergency (ER) | payer MEDICAID ==
[2017-05-13 22:54] VITALS: PULSE 140; BMI 30.9
[2017-05-13 23:07] VITALS: RESP 18; TEMP 97.4
[2017-05-13] MEDS ORDERED: Sodium Chloride 0.9% 250 ML IV ONE (23:58)
--- NOTE | 2017-05-13 23:59 | C.PDOC ---
History Of Present Illness 61 year old male with a Hx of HTn and chronic renal failure last dialyzed yesterday presents to the ER with a complaint of dizziness and weakness. Patient states when he was getting off the train he felt increasingly weak and felt like he had to constantly stop, when he got home he noticed his blood pressure was 90/60. Patient's dry weight is 240 but is unsure what is current weight is. Denies true vertigo symptoms, SOB, chest pain, or fever. Chief Complaint (Nursing): Dizziness/Lightheaded History Per: Patient History/Exam Limitations: no limitations Onset/Duration Of Symptoms: Hrs Current Symptoms Are (Timing): Still Present Activity At Onset Of Symptoms: Walking Associated Symptoms Preceding Syncopal Episode: Other (Weak/Dizzy) Seizure Or Post-ictal Symptoms: None Fall Associated With With Symptoms: No Recent travel outside of the [place]: No - Symptoms Of CVA Associated Symptoms: denies: Impaired Speech, Seizure Activity, New Vision Deficit(Left), New Vision Deficit(Right), Decreased Ability To Walk, New Confusion Past Medical History Reviewed: Historical Data, Nursing Documentation, Vital Signs Vital Signs: Last Vital Signs Temp 97.4 F L 05/13/17 22:59 Pulse 114 H 05/13/17 22:59 Resp 18 05/13/17 22:59 BP 119/68 05/13/17 22:59 Pulse Ox 98 05/14/17 00:52 - Medical History PMH: Anemia, Arthritis (BACK), Atrial Fibrillation, COPD, HTN, Hypercholesterolemia, Hyperlipidemia, Kidney Stones (rt kidney), End Stage Renal Disease, Chronic Kidney Disease Surgical History: Endoscopy - [facility] Procedures BYPASS L AXILLA ART TO UP ARM VEIN W SYNTH SUB, OPEN (12/23/16) DIALYSIS ARTERIOVENOSTOM (01/22/15) DILATION OF R SUBCLAV VEIN WITH INTRALUM DEV, PERC APPROACH (12/23/16) DILATION OF RIGHT AXILLARY VEIN, PERCUTANEOUS APPROACH (12/23/16) DILATION OF RIGHT BASILIC VEIN, PERCUTANEOUS APPROACH (09/09/16) DILATION OF UPPER VEIN, PERCUTANEOUS APPROACH (02/28/17) EXTIRPATION OF MATTER FROM UPPER VEIN, PERCUTANEOUS APPROACH (12/23/16) FLUOROSCOPY OF DIALYSIS SHUNT/FISTULA USING L OSM CONTRAST (12/23/16) FLUOROSCOPY OF SUP VENA CAVA USING L OSM CONTRAST, GUIDANCE (12/23/16) FLUOROSCOPY OF SUPERIOR VENA CAVA (09/09/16) HEMODIALYSIS (01/30/15) INSERTION OF INFUSION DEV INTO SUP VENA CAVA, PERC APPROACH (12/23/16) PACKED CELL TRANSFUSION (11/05/14) PERFORMANCE OF URINARY FILTRATION, MULTIPLE (02/28/17) PERFORMANCE OF URINARY FILTRATION, SINGLE (02/29/16) TRANSFUSE NONAUT PLATELETS IN PERIPH VEIN, PERC (09/09/16) ULTRASONOGRAPHY OF SUPERIOR VENA CAVA, GUIDANCE (09/09/16) VENOUS CATHETERIZATION FOR RENAL DIALYSIS (11/05/14) Family History: States: Unknown Family Hx - Social History Hx Tobacco Use: No (Quit years ago) Hx Alcohol Use: No Hx Substance Use: No - Immunization History Hx Tetanus Toxoid Vaccination: Yes Hx Influenza Vaccination: Yes Hx Pneumococcal Vaccination: Yes Review Of Systems Constitutional: Positive for: Weakness. Negative for: Fever, Chills Cardiovascular: Negative for: Chest Pain, Palpitations Respiratory: Negative for: Shortness of Breath Gastrointestinal: Negative for: Nausea, Vomiting Neurological: Positive for: Dizziness Physical Exam - Physical Exam Appears: Non-toxic, No Acute Distress Skin: Normal Color, Warm, Dry Head: Atraumatic, Normacephalic Eye(s): bilateral: Normal Inspection, PERRL, EOMI Oral Mucosa: Moist Neck: Normal, Supple Chest: Symmetrical, No Tenderness Cardiovascular: Rhythm Regular Respiratory: Normal Breath Sounds, No Rales, No Rhonchi, No Wheezing Gastrointestinal/Abdominal: Soft, No Tenderness Neurological/Psych: Oriented x3, Normal Speech, Other (No focal deficits) ED Course And Treatment - Laboratory Results Result Diagrams: 05/14/17 00:04 05/14/17 00:04 O2 Sat by Pulse Oximetry: 98 (room air) Pulse Ox Interpretation: Normal Medical Decision Making Medical Decision Making: Blood work and CXR ordered. H&H is 11.5 and 30 compared to his H&H in february of 10.6 and 31, results are consistent with dehydration. Disposition - Disposition Referrals: Gogo Valentin [Staff Provider] - Disposition: HOME/ ROUTINE Disposition Time: 01:37 Condition: STABLE Forms: [facility] (Azeri) - Clinical Impression Clinical Impression: End-stage renal disease, Dehydration - Scribe Statement The provider has reviewed the documentation as recorded by the Scribe Satnam Rodriguez All medical record entries made by the Scribe were at my direction and personally dictated by me. I have reviewed the chart and agree that the record accurately reflects my personal performance of the history, physical exam, medical decision making, and the department course for this patient. I have also personally directed, reviewed, and agree with the discharge instructions and disposition.
[2017-05-14] MEDS ORDERED: Sodium Chloride 0.9% 250 ML IV ONE (00:06)
[2017-05-14 00:07] LABS: BASO % 0.6 % (0.0-2.0); EOS # 0.1 K/uL (0.0-0.7); EOS % 3.7 % (0.0-4.0); HEMATOCRIT 36.2 % (35.0-51.0); LYMPH # 0.5 K/uL (1.0-4.3); LYMPH % 14.1 % (20.0-40.0); MEAN CELL VOLUME 93.1 fL (80.0-94.0); MEAN CORPUSCULAR HEMOGLOBIN 30.6 pg (27.0-31.0); MEAN CORPUSCULAR HGB CONC 32.9 g/dL (33.0-37.0); MEAN PLATELET VOLUME 10.8 fL (7.2-11.7); MONO # 0.5 K/uL (0.0-0.8); MONO % 12.5 % (0.0-10.0); NRBC % 0.2 % (0.0-2.0); WHITE BLOOD COUNT 3.7 K/uL (4.8-10.8)
[2017-05-14 00:21] LABS: ALB/GLOB RATIO 1.2 (1.0-2.1); BILIRUBIN,TOTAL 0.6 mg/dL (0.2-1.3); CALCIUM 9.1 mg/dl (8.6-10.4); POTASSIUM 3.3 mmol/L (3.6-5.2); TOTAL PROTEIN 7.5 g/dL (6.3-8.3)
[2017-05-14] MEDS ORDERED: Tramadol 25 mg PO STA (01:08)
[2017-05-14 02:00] VITALS: BP 127/74; PULSE 95
[2017-05-14 05:40] VITALS: O2SAT 98
--- NOTE | 2017-05-14 11:46 | RAD ---
HISTORY: Sepsis Patient COMPARISON: Chest radiograph 02/25/2017. FINDINGS: LUNGS: Chronic fibrotic changes again seen at the mid to inferior right lung zone with borderline patchy airspace disease in the right base. None is seen the left. PLEURA: No significant pleural effusion identified, no pneumothorax apparent. CARDIOVASCULAR: Normal. OSSEOUS STRUCTURES: No significant abnormalities. VISUALIZED UPPER ABDOMEN: Normal. OTHER FINDINGS: None. IMPRESSION: Borderline residual patchy density right base. Exam otherwise stable in the interval.
== END 2017-05-14 03:29 | disposition home or self-care (01) ==
LOC: C.ER 22:54
DX: I12.0 Hypertensive chronic kidney disease with stage 5 chronic kidney disease or end stage renal disease (principal); N18.6 End stage renal disease; E86.0 Dehydration; I48.91 Unspecified atrial fibrillation; E78.00 Pure hypercholesterolemia, unspecified; J44.9 Chronic obstructive pulmonary disease, unspecified

== ENCOUNTER 2017-09-24 16:23 | Inpatient (IN) | payer MEDICAID ==
[2017-09-24 16:23] VITALS: PULSE 140; BMI 30.8
[2017-09-24 18:24] LABS: BASO % 0.9 % (0.0-2.0); EOS # 0.2 K/uL (0.0-0.7); LYMPH # 0.4 K/uL (1.0-4.3); LYMPH % 14.2 % (20.0-40.0); MEAN CELL VOLUME 90.6 fL (80.0-94.0); MEAN CORPUSCULAR HEMOGLOBIN 30.1 pg (27.0-31.0); MEAN CORPUSCULAR HGB CONC 33.2 g/dL (33.0-37.0); MEAN PLATELET VOLUME 9.5 fL (7.2-11.7); MONO # 0.3 K/uL (0.0-0.8); MONO % 10.4 % (0.0-10.0); NEUT # 1.8 K/uL (1.8-7.0); NEUT % 67.5 % (50.0-75.0); RBC 3.32 Mil/uL (4.40-5.90); RED CELL DISTRIBUTION WIDTH 18.1 % (11.5-14.5); WHITE BLOOD COUNT 2.6 K/uL (4.8-10.8)
[2017-09-24 18:33] LABS: PROTHROMBIN TIME 11.6 SECONDS (9.7-12.2)
[2017-09-24 18:44] LABS: ALB/GLOB RATIO 1.4 (1.0-2.1); ALBUMIN 3.7 g/dL (3.5-5.0); CALCIUM 9.4 mg/dl (8.6-10.4)
--- NOTE | 2017-09-24 20:40 | C.PDOC ---
Time Seen by Provider: 09/24/17 17:36 Chief Complaint (Nursing): Upper Extremity Problem/Injury Past Medical History Vital Signs: Last Vital Signs Temp 98 F 09/24/17 16:26 Pulse 89 09/24/17 16:26 Resp 16 09/24/17 16:26 BP 164/82 H 09/24/17 16:26 Pulse Ox 98 09/24/17 16:26 - Medical History PMH: Anemia, Arthritis (BACK), Asthma, Atrial Fibrillation, COPD, HTN, Hypercholesterolemia, Hyperlipidemia, Kidney Stones (Rt kidney), End Stage Renal Disease, Chronic Kidney Disease Surgical History: Endoscopy - [facility] Procedures BYPASS L AXILLA ART TO UP ARM VEIN W SYNTH SUB, OPEN (12/23/16) DIALYSIS ARTERIOVENOSTOM (01/22/15) DILATION OF R SUBCLAV VEIN WITH INTRALUM DEV, PERC APPROACH (12/23/16) DILATION OF RIGHT AXILLARY VEIN, PERCUTANEOUS APPROACH (12/23/16) DILATION OF RIGHT BASILIC VEIN, PERCUTANEOUS APPROACH (09/09/16) DILATION OF UPPER VEIN, PERCUTANEOUS APPROACH (02/28/17) EXTIRPATION OF MATTER FROM UPPER VEIN, PERCUTANEOUS APPROACH (12/23/16) FLUOROSCOPY OF DIALYSIS SHUNT/FISTULA USING L OSM CONTRAST (12/23/16) FLUOROSCOPY OF SUP VENA CAVA USING L OSM CONTRAST, GUIDANCE (12/23/16) FLUOROSCOPY OF SUPERIOR VENA CAVA (09/09/16) HEMODIALYSIS (01/30/15) INSERTION OF INFUSION DEV INTO SUP VENA CAVA, PERC APPROACH (12/23/16) PACKED CELL TRANSFUSION (11/05/14) PERFORMANCE OF URINARY FILTRATION, MULTIPLE (02/28/17) PERFORMANCE OF URINARY FILTRATION, SINGLE (02/29/16) TRANSFUSE NONAUT PLATELETS IN PERIPH VEIN, PERC (09/09/16) ULTRASONOGRAPHY OF SUPERIOR VENA CAVA, GUIDANCE (09/09/16) VENOUS CATHETERIZATION FOR RENAL DIALYSIS (11/05/14) Family History: States: Unknown Family Hx - Social History Hx Tobacco Use: No (Quit years ago) Hx Alcohol Use: No Hx Substance Use: No - Immunization History Hx Tetanus Toxoid Vaccination: Yes Hx Influenza Vaccination: Yes Hx Pneumococcal Vaccination: Yes ED Course And Treatment - Laboratory Results Result Diagrams: 09/24/17 18:14 09/24/17 18:14 O2 Sat by Pulse Oximetry: 98 Disposition - Disposition
--- NOTE | 2017-09-24 20:41 | C.PDOC ---
History Of Present Illness Pt c/o LUE pain and swelling after an dialysis fistula was placed in his left arm 10 days ago. Time Seen by Provider: 09/24/17 17:36 Chief Complaint (Nursing): Upper Extremity Problem/Injury History Per: Patient Onset/Duration Of Symptoms: Days (10) Current Symptoms Are (Timing): Worse Location Of Injury: Left: Arm Quality Of Symptoms: Painful, Swollen, Draining Severity: Severe Additional History Per: Prior Records Past Medical History Reviewed: Historical Data, Nursing Documentation, Vital Signs Vital Signs: Last Vital Signs Temp 98 F 09/24/17 16:26 Pulse 89 09/24/17 16:26 Resp 16 09/24/17 16:26 BP 164/82 H 09/24/17 16:26 Pulse Ox 98 09/24/17 20:47 - Medical History PMH: Anemia, Arthritis (BACK), Asthma, Atrial Fibrillation, COPD, HTN, Hypercholesterolemia, Hyperlipidemia, Kidney Stones (Rt kidney), End Stage Renal Disease (on hemodialysis M/W/F), Chronic Kidney Disease Surgical History: Endoscopy - [facility] Procedures BYPASS L AXILLA ART TO UP ARM VEIN W SYNTH SUB, OPEN (12/23/16) DIALYSIS ARTERIOVENOSTOM (01/22/15) DILATION OF R SUBCLAV VEIN WITH INTRALUM DEV, PERC APPROACH (12/23/16) DILATION OF RIGHT AXILLARY VEIN, PERCUTANEOUS APPROACH (12/23/16) DILATION OF RIGHT BASILIC VEIN, PERCUTANEOUS APPROACH (09/09/16) DILATION OF UPPER VEIN, PERCUTANEOUS APPROACH (02/28/17) EXTIRPATION OF MATTER FROM UPPER VEIN, PERCUTANEOUS APPROACH (12/23/16) FLUOROSCOPY OF DIALYSIS SHUNT/FISTULA USING L OSM CONTRAST (12/23/16) FLUOROSCOPY OF SUP VENA CAVA USING L OSM CONTRAST, GUIDANCE (12/23/16) FLUOROSCOPY OF SUPERIOR VENA CAVA (09/09/16) HEMODIALYSIS (01/30/15) INSERTION OF INFUSION DEV INTO SUP VENA CAVA, PERC APPROACH (12/23/16) PACKED CELL TRANSFUSION (11/05/14) PERFORMANCE OF URINARY FILTRATION, MULTIPLE (02/28/17) PERFORMANCE OF URINARY FILTRATION, SINGLE (02/29/16) TRANSFUSE NONAUT PLATELETS IN PERIPH VEIN, PERC (09/09/16) ULTRASONOGRAPHY OF SUPERIOR VENA CAVA, GUIDANCE (09/09/16) VENOUS CATHETERIZATION FOR RENAL DIALYSIS (11/05/14) Family History: States: Unknown Family Hx - Social History Hx Tobacco Use: No (Quit years ago) Hx Alcohol Use: No Hx Substance Use: No - Immunization History Hx Tetanus Toxoid Vaccination: Yes Hx Influenza Vaccination: Yes Hx Pneumococcal Vaccination: Yes Review Of Systems Except As Marked, All Systems Reviewed And Found Negative. Constitutional: Positive for: Fever (?) Cardiovascular: Negative for: Chest Pain Respiratory: Negative for: Shortness of Breath Gastrointestinal: Negative for: Vomiting, Abdominal Pain Musculoskeletal: Positive for: Arm Pain (left) Skin: Positive for: Rash Neurological: Negative for: Weakness, Numbness Physical Exam - Physical Exam Appears: No Acute Distress, Chronically Ill Skin: Warm, Dry Head: Atraumatic, Normacephalic Eye(s): bilateral: PERRL, EOMI Neck: Normal ROM, Supple Cardiovascular: Rhythm Regular Respiratory: Normal Breath Sounds, No Accessory Muscle Use Gastrointestinal/Abdominal: Soft, No Tenderness Extremity: Normal ROM, Capillary Refill (wnl), Swelling (LUE with tenderness and warmth) Pulses: Left Radial: Normal Neurological/Psych: Oriented x3, Normal Motor, Normal Sensation ED Course And Treatment - Laboratory Results Result Diagrams: 09/24/17 18:14 09/24/17 18:14 Lab Interpretation: Abnormal Interpretation Of Abnormal: Pancytopenia. Renal failure. O2 Sat by Pulse Oximetry: 98 Pulse Ox Interpretation: Normal - Physician Consult Information Physician Contacted: Esteban Galvan Outcome Of Conversation: He will see pt in the hospital. He requested that pt receive Vancomycin 1g and Cefepime 1g IV. Progress - Interventions Interventions:: Observation - Medications Administered Intravenous: Other (Abx) - Data Reviewed Data Reviewed: Lab, Old records - Continuity of Care Discussed patient case with:: Patient, ED Nurse, Covering for PMD Discussed pt. case with dairy feed sales consultant/specialty: Nephrology - Patient Plan Patient Plan: Admission Disposition Discussed With : Broderick Solis Comment: He accepted pt on hospitalist service. Doctor Will See Patient In The: Hospital Counseled Patient/Family Regarding: Studies Performed, Diagnosis - Disposition Disposition: HOSPITALIZED Disposition Time: 20:44 Condition: GUARDED - Clinical Impression Clinical Impression: Cellulitis of left arm, ESRD (end stage renal disease) on dialysis, Left upper extremity swelling
[2017-09-24] MEDS ORDERED: Clindamycin 600mg/50ml D5W 600 MG/50 ML VIAL IVPB SCH (20:45)
[2017-09-24] MEDS ORDERED: Vancomycin 1 GM 1 GM/250 ML BAG IVPB STA (20:47)
[2017-09-24] MEDS ORDERED: Cefepime 1 GM in Sodium Chloride 0.9% 50 ML IVPB STA (20:48)
--- NOTE | 2017-09-24 21:17 | CP.PCM.HP ---
<Trudy Newton - Last Filed: 09/24/17 22:57> History of Present Illness - History of Present Illness History of Present Illness: CC: left arm swelling and pain 62 year old male with history of ESRD (HD MWF), hypertension, lymphoma s/p chemotherapy, and BPH presents to the ED today complaining of left arm pain and swelling. Patient reports he had a left arm AV fistula [place] Huber [place] [facility] [place] 10 days ago. The surgical site became painful and swollen 3 days after and patient returned to [facility] and was given an antibiotic (patient does not know the name) to take on dialysis days. Patient states his swelling and pain did not get better with this medication and stopped taking it after 2 doses. Patient has been getting HD at [facility] in [place]. His last HD session was 2 days ago. Patient admits to dizziness associated with this pain and swelling. Patient denies fever, chills, shortness of breath, chest pain , abdominal pain, nausea, vomiting, or diarrhea. 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 PMD: Dr. Meraz, Nephro: Dr. Alegre PMHx: ESRD (HD MWF), hypertension, lymphoma s/p chemotherapy, and BPH PSHx: kidney stone 1998, L AV fistula Famhx: both parents htn and stroke Social : former smoker, quit 17 years ago (smoked 30ppd history). Denies alcohol and drugs use Home Meds: Spiriva, flomax, renvela, aspirin, albuterol Present on Admission - Present on Admission Any Indicators Present on Admission: No Review of Systems - Constitutional Constitutional: As Per HPI, Lethargy. absent: Chills, Fever, Headache - EENT Eyes: As Per HPI. absent: Blind Spots, Decreased Night Vision, Irritation Ears: As Per HPI, Dizziness Nose/Mouth/Throat: As Per HPI. absent: Epistaxis, Nasal Obstruction, Nasal Trauma - Cardiovascular Cardiovascular: As Per HPI. absent: Chest Pain, Chest Pain at Rest, Chest Pain with Activity - Respiratory Respiratory: As Per HPI. absent: Cough, Dyspnea, Wheezing - Gastrointestinal Gastrointestinal: As Per HPI. absent: Abdominal Pain, Bloating - Genitourinary Genitourinary: As Per HPI, Change in Urinary Stream, Difficulty Urinating - Reproductive: Male Reproductive:Male: As Per HPI - Musculoskeletal Musculoskeletal: As Per HPI, Back Pain - Integumentary Integumentary: As Per HPI, Erythema, Lesions, Pruritus, Skin Pain - Neurological Neurological: As Per HPI, Dizziness. absent: Numbness - Psychiatric Psychiatric: As Per HPI. absent: Confusion, Depression - Endocrine Endocrine: As Per HPI. absent: Change in Body Appearance - Hematologic/Lymphatic Hematologic: As Per HPI. absent: Easy Bruising Past Patient History - Infectious Disease Hx of Infectious Diseases: None - Past Medical History & Family History Past Medical History?: Yes - Past Social History Smoking Status: Former Smoker - CARDIAC Hx Atrial Fibrillation: Yes Hx Hypercholesterolemia: Yes Hx Hypertension: Yes - PULMONARY Hx Asthma: Yes Hx Chronic Obstructive Pulmonary Disease (COPD): Yes - NEUROLOGICAL Hx Neurological Disorder: No - HEENT Hx HEENT Problems: No - RENAL Hx Chronic Kidney Disease: Yes Hx Kidney Stones: Yes (Rt kidney) - ENDOCRINE/METABOLIC Hx Endocrine Disorders: No - HEMATOLOGICAL/ONCOLOGICAL Hx Anemia: Yes - INTEGUMENTARY Hx Dermatological Problems: No - MUSCULOSKELETAL/RHEUMATOLOGICAL Hx Arthritis: Yes (BACK) - GASTROINTESTINAL Hx Gastrointestinal Disorders: Yes Other/Comment: chronic constipation - GENITOURINARY/GYNECOLOGICAL Hx Genitourinary Disorders: Yes Hx Prostate Problems: Yes (hx of turp) - PSYCHIATRIC Hx Substance Use: No - SURGICAL HISTORY Hx Surgeries: Yes Hx Arteriovenous Shunt: Yes (right upper arm) Hx Vascular Access Device: Yes (BILATERAL ARM SHUNTS) Other/Comment: Prostate sx - ANESTHESIA Hx Anesthesia: Yes Hx Anesthesia Reactions: No Hx Malignant Hyperthermia: No Meds Allergies/Adverse Reactions: Allergies Allergy/AdvReac Type Severity Reaction Status Date / Time No Known Allergies Allergy Verified 09/24/17 16:32 Physical Exam - Constitutional Appears: Non-toxic, No Acute Distress - Head Exam Head Exam: ATRAUMATIC, NORMOCEPHALIC - Eye Exam Eye Exam: EOMI, Normal appearance Pupil Exam: PERRL - ENT Exam ENT Exam: Mucous Membranes Moist - Neck Exam Neck exam: Positive for: Normal Inspection - Respiratory Exam Respiratory Exam: Clear to Auscultation Bilateral, NORMAL BREATHING PATTERN. absent: Wheezes, Respiratory Distress - Cardiovascular Exam Cardiovascular Exam: REGULAR RHYTHM, +S1, +S2 - GI/Abdominal Exam GI & Abdominal Exam: Normal Bowel Sounds, Soft. absent: Tenderness - Extremities Exam Additional comments: left upper extremity swelling with slight erythema, sutures from AV fistula procedure intact, limited range of motion due to pain and swelling - Neurological Exam Neurological exam: Alert, Oriented x3 - Psychiatric Exam Psychiatric exam: Normal Affect, Normal Mood - Skin Skin Exam: Dry, Warm Results - Vital Signs Recent Vital Signs: Last Vital Signs Temp 98 F 09/24/17 16:26 Pulse 89 09/24/17 16:26 Resp 16 09/24/17 16:26 BP 164/82 H 09/24/17 16:26 Pulse Ox 98 09/24/17 20:51 - Labs Result Diagrams: 09/24/17 18:14 09/24/17 18:14 Labs: Laboratory Results - last 24 hr 09/24/17 09/24/17 09/24/17 18:14 18:14 18:14 WBC 2.6 L RBC 3.32 L Hgb 10.0 L Hct 30.0 L MCV 90.6 MCH 30.1 MCHC 33.2 RDW 18.1 H Plt Count 79 L MPV 9.5 Neut % (Auto) 67.5 Lymph % (Auto) 14.2 L Rains % (Auto) 10.4 H Eos % (Auto) 7.0 H Baso % (Auto) 0.9 Neut # (Auto) 1.8 Lymph # (Auto) 0.4 L Rains # (Auto) 0.3 Eos # (Auto) 0.2 Baso # (Auto) 0.0 PT 11.6 INR 1.0 APTT 29 Sodium 144 Potassium 3.5 L Chloride 98 Carbon Dioxide 32 H Anion Gap 18 BUN 40 H Creatinine 7.8 H* Est GFR ( Amer) 9 Est GFR (Non-Af Amer) 7 Random Glucose 97 Calcium 9.4 Total Bilirubin 0.5 AST 28 ALT 23 Alkaline Phosphatase 57 Total Protein 6.3 Albumin 3.7 Globulin 2.6 Albumin/Globulin Ratio 1.4 Assessment & Plan - Assessment and Plan (Free Text) Assessment: Cellulitis at left AVF site -Afebrile, no leukocytosis -ID consulted, Dr. Bradford help appreciated -Vancomycin 1gm IV MWF -Gentamicin 80mg IV daily -Cefepime IV 0.5gm IV daily -Follow up ESR, CRP, blood culture ESRD, HD on MWF -Started HD since 2014, last HD 09/22/17 -Nephrology consulted, Dr. Galvan help appreciated -Renvela 2mg tid -Vitamin D 78995y weekly Coccyydynia, chronic -Tylenol 650mg prn -Recommended patient to avoid position of pain Atrial fibrillation -Aspirin 81mg -Lopressor 50mg Q12 -CHADS-VASc score of 1 (HTN) -Echo 02/2017 left ventricle systolic function is normal, EF:50-55%, diastolic dysfunction COPD -Albuterol inh Q6 prn -Spiriva 18mcg BPH -Flomax 0.4mg Prophylactic measures -Protonix -SCD <Broderick Soils - Last Filed: 09/25/17 05:30> Results - Vital Signs Recent Vital Signs: Last Vital Signs Temp 97.6 F 09/25/17 00:00 Pulse 77 09/25/17 00:00 Resp 20 09/25/17 00:00 BP 153/91 H 09/25/17 00:00 Pulse Ox 96 09/25/17 00:00 - Labs Result Diagrams: 09/24/17 18:14 09/24/17 18:14 Labs: Laboratory Results - last 24 hr 09/24/17 09/24/17 09/24/17 18:14 18:14 18:14 WBC 2.6 L RBC 3.32 L Hgb 10.0 L Hct 30.0 L MCV 90.6 MCH 30.1 MCHC 33.2 RDW 18.1 H Plt Count 79 L MPV 9.5 Neut % (Auto) 67.5 Lymph % (Auto) 14.2 L Rains % (Auto) 10.4 H Eos % (Auto) 7.0 H Baso % (Auto) 0.9 Neut # (Auto) 1.8 Lymph # (Auto) 0.4 L [place] # (Auto) 0.3 Eos # (Auto) 0.2 Baso # (Auto) 0.0 PT 11.6 INR 1.0 APTT 29 Sodium 144 Potassium 3.5 L Chloride 98 Carbon Dioxide 32 H Anion Gap 18 BUN 40 H Creatinine 7.8 H* Est GFR ( Amer) 9 Est GFR (Non-Af Amer) 7 Random Glucose 97 Calcium 9.4 Total Bilirubin 0.5 AST 28 ALT 23 Alkaline Phosphatase 57 Total Protein 6.3 Albumin 3.7 Globulin 2.6 Albumin/Globulin Ratio 1.4 Assessment & Plan - Date & Time Date: 04/16/18 (I have seen and examined the patient. I agree with the findings and plan of care as documented by Dr. Newton. Patient with cellulitis in left arm AV fistula site. ESRD on HD. Consult to ID and nephro. Ab Temple, and Varghese for now. Wound and blood cultures. Continue home meds for history of atrial fib. Monitor for acute changes.) Time: 05:27 Attending/Attestation - Attestation I have personally seen and examined this patient.: Yes I have fully participated in the care of the patient.: Yes I have reviewed all pertinent clinical information: Yes
[2017-09-24] MEDS ORDERED: Vancomycin 1 gm/NS 200 ml 1 GM/200 ML BAG IVPB STA (21:58)
[2017-09-24] MEDS ORDERED: Cefepime IV 1 gm in Dextrose 1 GM/50 ML BAG IVPB STA (21:58)
[2017-09-24] MEDS ORDERED: Albuterol HFA 90 mcg/actuation (8 g) INH PRN (23:32)
[2017-09-25] MEDS ORDERED: DiphenhydrAMINE 50 mg/ml Inj IVP ONE (02:46)
[2017-09-25 07:31] LABS: BASO % 0.8 % (0.0-2.0); EOS # 0.2 K/uL (0.0-0.7); EOS % 7.3 % (0.0-4.0); HEMOGLOBIN 10.1 g/dL (12.0-18.0); LYMPH # 0.4 K/uL (1.0-4.3); LYMPH % 16.3 % (20.0-40.0); MEAN CELL VOLUME 89.8 fL (80.0-94.0); MEAN CORPUSCULAR HEMOGLOBIN 29.8 pg (27.0-31.0); MEAN CORPUSCULAR HGB CONC 33.1 g/dL (33.0-37.0); MEAN PLATELET VOLUME 10.4 fL (7.2-11.7); MONO # 0.2 K/uL (0.0-0.8); MONO % 9.9 % (0.0-10.0); NEUT # 1.5 K/uL (1.8-7.0); NEUT % 65.7 % (50.0-75.0); RBC 3.39 Mil/uL (4.40-5.90); RED CELL DISTRIBUTION WIDTH 18.2 % (11.5-14.5); WHITE BLOOD COUNT 2.3 K/uL (4.8-10.8)
[2017-09-25 07:53] LABS: IRON 39 ug/dL (49-181)
[2017-09-25 08:17] LABS: ALB/GLOB RATIO 1.5 (1.0-2.1); ALBUMIN 3.7 g/dL (3.5-5.0); CALCIUM 9.3 mg/dl (8.6-10.4)
[2017-09-25 08:21] LABS: % IRON SATURATION 17 (20-55); TOTAL IRON BINDING CAPACITY 225 ug/dL (250-450)
[2017-09-25] MEDS: Pantoprazole 40 mg EC Tab PO SCH (09:42)
[2017-09-25] MEDS: Multivitamin Vitamin B Complex (Nephro-Vite) Tab PO SCH (09:42)
[2017-09-25] MEDS: Vancomycin 1 gm/NS 200 ml 1 GM/200 ML BAG IVPB SCH (10:52)
--- NOTE | 2017-09-25 14:27 | CP.PCM.CON ---
History of Present Illness - History of Present Illness History of Present Illness: CC: left arm swelling and pain 62 year old male with history of ESRD (HD MWF), hypertension, lymphoma s/p chemotherapy, and BPH presents to the ED today complaining of left arm pain and swelling. Patient reports he had a left arm AV fistula surgery by Dr. Huber [place] [facility] approximately 10 days ago. The surgical site became painful and swollen 3 days after and patient returned to [facility] and was given an antibiotic (patient does not know the name) to take on dialysis days. Patient states his swelling and pain did not get better with this medication and stopped taking it after 2 doses. Patient has been getting HD at [facility] in [place]. His last HD session was 2 days ago. Patient admits to dizziness associated with this pain and swelling. Patient denies fever, chills, shortness of breath, chest pain , abdominal pain, nausea, vomiting, or diarrhea. AV access patent in medial portion, but swollen Due for HD today Patient was last hospitalized in 02/2017 for the similar presentation was found to have Coagulase Neg Staph Bactermia. PMD: Dr. Meraz, Nephro: Dr. Alegre PMHx: ESRD (HD MWF), hypertension, lymphoma s/p chemotherapy, and BPH PSHx: kidney stone 1998, L AV fistula Famhx: both parents htn and stroke Social : former smoker, quit 17 years ago (smoked 30ppd history). Denies alcohol and drugs use Home Meds: Spiriva, flomax, renvela, aspirin, albuterol Review of Systems - Constitutional Constitutional: Lethargy, Weakness - EENT Eyes: absent: As Per HPI, Blind Spots, Blurred Vision, Change in Vision, Decreased Night Vision, Diplopia, Discharge, Dry Eye, Exophthalmos, Floaters, Irritation, Itchy Eyes, Loss of Peripheral Vision, Pain, Photophobia, Requires Corrective Lenses, Sees Flashes, Spots in Vision, Tunnel Vision, Other Visual Disturbances, Loss of Vision, Other Ears: absent: As Per HPI, Decreased Hearing, Ear Discharge, Ear Pain, Tinnitus, Abnormal Hearing, Disequilibrium, Dizziness, Other Nose/Mouth/Throat: absent: As Per HPI, Epistaxis, Nasal Congestion, Nasal Discharge, Nasal Obstruction, Nasal Trauma, Nose Pain, Post Nasal Drip, Sinus Pain, Sinus Pressure, Bleeding Gums, Change in Voice, Dental Pain, Dry Mouth, Dysphagia, Halitosis, Hoarsness, Lip Swelling, Mouth Lesions, Mouth Pain, Odynophagia, Sore Throat, Throat Swelling, Tongue Swelling, Facial Pain, Neck Pain, Neck Mass, Other - Cardiovascular Cardiovascular: Dyspnea on Exertion - Respiratory Respiratory: absent: As Per HPI, Cough, Dyspnea, Hemoptysis, Dyspnea on Exertion , Wheezing, Snoring, Stridor, Pain on Inspiration, Chest Congestion, Excessive Mucous Production, Change in Mucous Color, Pain with Coughing, Other - Gastrointestinal Gastrointestinal: absent: As Per HPI, Abdominal Pain, Belching, Bloating, Change in Bowel Habits, Change in Stool Character, Coffee Ground Emesis, Constipation, Cramping, Diarrhea, Dyspepsia, Dysphagia, Early Satiety, Excessive Flatus, Fecal Incontinence, Heartburn, Hematemesis, Hematochezia, Loose Stools, Melena, Nausea, Odynophagia, Temesmus, Vomiting, Other - Genitourinary Genitourinary: As Per HPI - Musculoskeletal Musculoskeletal: Muscle Cramps, Myalgias - Integumentary Integumentary: Wounds - Neurological Neurological: Weakness Past Patient History - Infectious Disease Hx of Infectious Diseases: None - Past Medical History & Family History Past Medical History?: Yes Past Family History: Reviewed and not pertinent - Past Social History Smoking Status: Former Smoker Chewing Tobacco Use: No Cigar Use: No Alcohol: None Drugs: Denies Home Situation {Lives}: Alone - CARDIAC Hx Atrial Fibrillation: Yes Hx Hypercholesterolemia: Yes Hx Hypertension: Yes - PULMONARY Hx Asthma: Yes Hx Chronic Obstructive Pulmonary Disease (COPD): Yes - NEUROLOGICAL Hx Neurological Disorder: No - HEENT Hx HEENT Problems: No - RENAL Hx Chronic Kidney Disease: Yes Date of Last Dialysis Treatment: 09/22/17 Hx Kidney Stones: Yes (Rt kidney) - ENDOCRINE/METABOLIC Hx Endocrine Disorders: No - HEMATOLOGICAL/ONCOLOGICAL Hx Anemia: Yes - INTEGUMENTARY Hx Dermatological Problems: No - MUSCULOSKELETAL/RHEUMATOLOGICAL Hx Arthritis: Yes (BACK) Hx Falls: No - GASTROINTESTINAL Hx Gastrointestinal Disorders: Yes Other/Comment: chronic constipation - GENITOURINARY/GYNECOLOGICAL Hx Genitourinary Disorders: Yes Hx Prostate Problems: Yes (hx of turp) - PSYCHIATRIC Hx Substance Use: No - SURGICAL HISTORY Hx Surgeries: Yes Hx Arteriovenous Shunt: Yes (right upper arm) Hx Vascular Access Device: Yes (BILATERAL ARM SHUNTS) Other/Comment: Prostate sx - ANESTHESIA Hx Anesthesia: Yes Hx Anesthesia Reactions: No Hx Malignant Hyperthermia: No Meds Allergies/Adverse Reactions: Allergies Allergy/AdvReac Type Severity Reaction Status Date / Time No Known Allergies Allergy Verified 09/24/17 16:32 - Medications Medications: Current Medications Acetaminophen (Tylenol 325mg Tab) 650 mg PO Q6 PRN PRN Reason: Pain, Mild (1-3) Last Admin: 09/24/17 23:40 Dose: 650 mg Albuterol (Ventolin Hfa 90 Mcg/Actuation (8 G)) 2 puff INH RQ6 PRN PRN Reason: Shortness of Breath Ergocalciferol (Drisdol 50,000 Intl Units Cap) 1 cap PO QWK [facility] Gentamicin Sulfate 80 mg/ (Sodium Chloride) 102 mls @ 100 mls/hr IVPB Q24H VIKY PRN Reason: Protocol Last Admin: 09/25/17 02:35 Dose: 100 mls/hr Cefepime HCl 0.5 gm/ Sodium (Chloride) 50 mls @ 100 mls/hr IVPB DAILY VIKY PRN Reason: Protocol Last Admin: 09/25/17 09:42 Dose: 100 mls/hr Vancomycin/Sodium Chloride (Vancomycin 1 Gm/Ns 200 Ml) 1 gm in 200 mls @ 133.333 mls/hr IVPB MWF VIKY PRN Reason: Protocol Stop: 09/30/17 09:01 Last Admin: 09/25/17 10:52 Dose: 133.333 mls/hr Pantoprazole Sodium (Protonix Ec Tab) 40 mg PO DAILY [facility] Last Admin: 09/25/17 09:42 Dose: 40 mg Fluticasone/Salmeterol (Advair Diskus 250/50) 1 puff INH RQ12 [facility] Sevelamer Carbonate (Renvela) 1,600 mg PO TID [facility] Last Admin: 09/25/17 13:52 Dose: Not Given Tamsulosin HCl (Flomax) 0.4 mg PO DAILY [facility] Last Admin: 09/25/17 09:42 Dose: 0.4 mg Tiotropium Benson (Spiriva) 18 mcg INH RQD [facility] Vitamin B Complex/Vit C/Folic Acid (Nephro-Anival) 1 tab PO DAILY [facility] Last Admin: 09/25/17 09:42 Dose: 1 tab Physical Exam - Constitutional Appears: No Acute Distress, Chronically Ill - Head Exam Head Exam: ATRAUMATIC, NORMAL INSPECTION - Eye Exam Eye Exam: EOMI, Normal appearance - Neck Exam Neck exam: Positive for: Normal Inspection. Negative for: Tenderness - Respiratory Exam Respiratory Exam: Clear to Auscultation Bilateral, NORMAL BREATHING PATTERN - Cardiovascular Exam Cardiovascular Exam: REGULAR RHYTHM, +S1 - GI/Abdominal Exam GI & Abdominal Exam: Soft. absent: Tenderness - Extremities Exam Extremities exam: Positive for: pedal edema. Negative for: tenderness - Neurological Exam Neurological exam: Alert, CN II-XII Intact - Skin Skin Exam: Dry, Warm Results - Vital Signs Recent Vital Signs: Last Vital Signs Temp 97.6 F 09/25/17 08:07 Pulse 69 09/25/17 08:07 Resp 20 09/25/17 08:07 BP 151/82 H 09/25/17 08:07 Pulse Ox 97 09/25/17 08:07 - Labs Result Diagrams: 09/25/17 07:18 09/25/17 07:18 Labs: Laboratory Results - last 24 hr 09/24/17 09/24/17 09/24/17 18:14 18:14 18:14 WBC 2.6 L RBC 3.32 L Hgb 10.0 L Hct 30.0 L MCV 90.6 MCH 30.1 MCHC 33.2 RDW 18.1 H Plt Count 79 L MPV 9.5 Neut % (Auto) 67.5 Lymph % (Auto) 14.2 L [place] % (Auto) 10.4 H Eos % (Auto) 7.0 H Baso % (Auto) 0.9 Neut # (Auto) 1.8 Lymph # (Auto) 0.4 L [place] # (Auto) 0.3 Eos # (Auto) 0.2 Baso # (Auto) 0.0 ESR PT 11.6 INR 1.0 APTT 29 Sodium 144 Potassium 3.5 L Chloride 98 Carbon Dioxide 32 H Anion Gap 18 BUN 40 H Creatinine 7.8 H* Est GFR ( Amer) 9 Est GFR (Non-Af Amer) 7 Random Glucose 97 Calcium 9.4 Iron TIBC % Saturation Total Bilirubin 0.5 AST 28 ALT 23 Alkaline Phosphatase 57 C-Reactive Protein Total Protein 6.3 Albumin 3.7 Globulin 2.6 Albumin/Globulin Ratio 1.4 Vitamin B12 0409/25/17 09/25/17 07:18 07:18 07:18 WBC 2.3 L RBC 3.39 L Hgb 10.1 L Hct 30.4 L MCV 89.8 MCH 29.8 MCHC 33.1 RDW 18.2 H Plt Count 76 L MPV 10.4 Neut % (Auto) 65.7 Lymph % (Auto) 16.3 L [place] % (Auto) 9.9 Eos % (Auto) 7.3 H Baso % (Auto) 0.8 Neut # (Auto) 1.5 L Lymph # (Auto) 0.4 L [place] # (Auto) 0.2 Eos # (Auto) 0.2 Baso # (Auto) 0.0 ESR 37 H PT INR APTT Sodium Potassium Chloride Carbon Dioxide Anion Gap BUN Creatinine Est GFR ( Amer) Est GFR (Non-Af Amer) Random Glucose Calcium Iron 39 L TIBC 225 L % Saturation 17 L Total Bilirubin AST ALT Alkaline Phosphatase C-Reactive Protein Total Protein Albumin Globulin Albumin/Globulin Ratio Vitamin B12 711 09/25/17 07:18 WBC RBC Hgb Hct MCV MCH MCHC RDW Plt Count MPV Neut % (Auto) Lymph % (Auto) [place] % (Auto) Eos % (Auto) Baso % (Auto) Neut # (Auto) Lymph # (Auto) [place] # (Auto) Eos # (Auto) Baso # (Auto) ESR PT INR APTT Sodium 143 Potassium 3.9 Chloride 99 Carbon Dioxide 26 Anion Gap 22 H BUN 53 H Creatinine 8.1 H* Est GFR ( Amer) 8 Est GFR (Non-Af Amer) 7 Random Glucose 83 Calcium 9.3 Iron TIBC % Saturation Total Bilirubin 0.7 AST 31 ALT 27 Alkaline Phosphatase 57 C-Reactive Protein 17.30 H Total Protein 6.3 Albumin 3.7 Globulin 2.6 Albumin/Globulin Ratio 1.5 Vitamin B12 Assessment & Plan (1) HTN (hypertension) Status: Acute (2) Cellulitis of left arm Status: Acute (3) ESRD (end stage renal disease) on dialysis Status: Acute - Assessment and Plan (Free Text) Plan: AV access patent needs dialysis today IV ABs surgical eval access- it is open and will need 2 mos before use use permcath for now - Date & Time Time: 14:29
--- NOTE | 2017-09-25 15:28 | CP.PCM.PN ---
<EldonKarinjacki Porter - Last Filed: 09/25/17 15:57> Subjective - Date & Time of Evaluation Date of Evaluation: 09/25/17 Time of Evaluation: 07:15 - Subjective Subjective: Medicine progress note ( Dr. Olsen's service) Patient was seen and examined at bedside. Patient was resting comfortably in bed. Patient denies any symptoms of fever, chills, nausea, vomiting, chest pain , SOB, palpitations. Patient still admits to left arm pain at the site of AVF; which was done [place] [facility] [place] ago. Patient is a poor historian and very unclear what was done to his left AVF [facility]; we will try to obtain records. Objective - Vital Signs/Intake and Output Vital Signs (last 24 hours): Temp Pulse Resp BP Pulse Ox 97.6 F 68 20 152/82 H 97 09/25/17 08:07 09/25/17 14:56 09/25/17 08:07 09/25/17 14:56 09/25/17 14:56 Intake and Output: 09/25/17 09/25/17 06:59 18:59 Intake Total 700 Balance 700 - Medications Medications: Current Medications Acetaminophen (Tylenol 325mg Tab) 650 mg PO Q6 PRN PRN Reason: Pain, Mild (1-3) Last Admin: 09/24/17 23:40 Dose: 650 mg Albuterol (Ventolin Hfa 90 Mcg/Actuation (8 G)) 2 puff INH RQ6 PRN PRN Reason: Shortness of Breath Ergocalciferol (Drisdol 50,000 Intl Units Cap) 1 cap PO QWK [facility] Gentamicin Sulfate 80 mg/ (Sodium Chloride) 102 mls @ 100 mls/hr IVPB Q24H [facility] PRN Reason: Protocol Last Admin: 09/25/17 02:35 Dose: 100 mls/hr Cefepime HCl 0.5 gm/ Sodium (Chloride) 50 mls @ 100 mls/hr IVPB DAILY [facility] PRN Reason: Protocol Last Admin: 09/25/17 09:42 Dose: 100 mls/hr Vancomycin/Sodium Chloride (Vancomycin 1 Gm/Ns 200 Ml) 1 gm in 200 mls @ 133.333 mls/hr IVPB MWF [facility] PRN Reason: Protocol Stop: 09/30/17 09:01 Last Admin: 09/25/17 10:52 Dose: 133.333 mls/hr Pantoprazole Sodium (Protonix Ec Tab) 40 mg PO DAILY [facility] Last Admin: 09/25/17 09:42 Dose: 40 mg Fluticasone/Salmeterol (Advair Diskus 250/50) 1 puff INH RQ12 [facility] Sevelamer Carbonate (Renvela) 1,600 mg PO TID [facility] Last Admin: 09/25/17 13:52 Dose: Not Given Tamsulosin HCl (Flomax) 0.4 mg PO DAILY [facility] Last Admin: 09/25/17 09:42 Dose: 0.4 mg Tiotropium [place] (Spiriva) 18 mcg INH RQD [facility] Vitamin B Complex/Vit C/Folic Acid (Nephro-Julianna) 1 tab PO DAILY [facility] Last Admin: 09/25/17 09:42 Dose: 1 tab - Labs Labs: 09/25/17 07:18 09/25/17 07:18 PT 11.6 SECONDS (9.7-12.2) 09/24/17 18:14 INR 1.0 09/24/17 18:14 APTT 29 SECONDS (21-34) 09/24/17 18:14 - Constitutional Appears: No Acute Distress - Head Exam Head Exam: ATRAUMATIC - Eye Exam Eye Exam: EOMI - ENT Exam ENT Exam: Mucous Membranes Moist - Neck Exam Additional comments: Noted left HD access, permacath - Respiratory Exam Respiratory Exam: Clear to Ausculation Bilateral, NORMAL BREATHING PATTERN. absent: Rhonchi, Wheezes, Respiratory Distress - Cardiovascular Exam Cardiovascular Exam: REGULAR RHYTHM, +S1, +S2. absent: Murmur - GI/Abdominal Exam GI & Abdominal Exam: Soft, Normal Bowel Sounds. absent: Distended, Firm, Guarding, Rigid, Tenderness - Extremities Exam Extremities Exam: absent: Calf Tenderness, Pedal Edema Additional comments: Left arm swelling at the site of the AVF and tenderness.; no drainage. Audible bruit and palpable thrill. - Neurological Exam Neurological Exam: Alert, Awake, Oriented x3 - Skin Skin Exam: Normal Color Assessment and Plan (1) Cellulitis of left arm Assessment & Plan: At the AVF Consultations: * Vascular surgery, Dr. Altman---> Help appreciated * Infectious disease, Dr. Bradford---> Help appreciated Diagnostic imaging/ labs: * ESR and CRP: 37 and 17.30 * F/u forearm X-ray * F/u right upper extremity US * F/u venous doppler and arterial duplex scan and CT * F/u blood culture Medications: -Vancomycin 1gm IV MWF -Gentamicin 80mg IV daily -Cefepime IV 0.5gm IV daily -Florastor 250mg PO BID Status: Acute (2) ESRD (end stage renal disease) on dialysis Assessment & Plan: Consultations: * Magisterial District Judge, Dr. Alegre---> Help appreciated * HD on MWF, Started HD since 2014, last HD 09/22/17 Medications: -Renvela 1,600mg PO TID -Vitamin D 89974i weekly - Nephro-julianna 1 tab PO daily Status: Chronic (3) Coccydynia Assessment & Plan: -Tylenol 650mg prn -Recommended patient to avoid position of pain Status: Chronic (4) Chronic obstructive pulmonary disease Assessment & Plan: -Albuterol inh Q6 prn -Spiriva 18mcg Status: Chronic (5) Atrial fibrillation Assessment & Plan: -Aspirin 81mg -Lopressor 50mg Q12 -CHADS-VASc score of 1 (HTN) -Echo 02/2017 left ventricle systolic function is normal, EF:50-55%, diastolic dysfunction Status: Chronic (6) BPH (benign prostatic hyperplasia) Assessment & Plan: -Flomax 0.4mg Status: Chronic (7) Prophylactic measure Assessment & Plan: GI: Protonix 40mg PO daily DVT: Heparin 5,000 units SC Renal diet All plans and management as per Dr. Olsen Status: Acute <Bert Olsen - Last Filed: 09/25/17 18:51> Objective - Vital Signs/Intake and Output Vital Signs (last 24 hours): Temp Pulse Resp BP Pulse Ox 97.8 F 77 16 142/84 98 09/25/17 15:24 09/25/17 15:35 09/25/17 15:35 09/25/17 17:25 09/25/17 15:00 Intake and Output: 09/25/17 09/25/17 06:59 18:59 Intake Total 1250 Balance 1250 - Medications Medications: Current Medications Acetaminophen (Tylenol 325mg Tab) 650 mg PO Q6 PRN PRN Reason: Pain, Mild (1-3) Last Admin: 09/25/17 17:43 Dose: 650 mg Albuterol (Ventolin Hfa 90 Mcg/Actuation (8 G)) 2 puff INH RQ6 PRN PRN Reason: Shortness of Breath Ergocalciferol (Drisdol 50,000 Intl Units Cap) 1 cap PO QWK [facility] Heparin Sodium (Porcine) (Heparin) 5,000 units SC Q8 [facility] Cefepime HCl 0.5 gm/ Sodium (Chloride) 50 mls @ 100 mls/hr IVPB DAILY [facility] PRN Reason: Protocol Last Admin: 09/25/17 09:42 Dose: 100 mls/hr Vancomycin/Sodium Chloride (Vancomycin 1 Gm/Ns 200 Ml) 1 gm in 200 mls @ 133.333 mls/hr IVPB MWF [facility] PRN Reason: Protocol Stop: 09/30/17 09:01 Last Admin: 09/25/17 10:52 Dose: 133.333 mls/hr Gentamicin Sulfate 80 mg/ (Sodium Chloride) 102 mls @ 100 mls/hr IVPB [facility] PRN Reason: Protocol Pantoprazole Sodium (Protonix Ec Tab) 40 mg PO DAILY [facility] Last Admin: 09/25/17 09:42 Dose: 40 mg Saccharomyces Boulardii (Florastor) 250 mg PO BID [facility] Fluticasone/Salmeterol (Advair Diskus 250/50) 1 puff INH RQ12 [facility] Sevelamer Carbonate (Renvela) 1,600 mg PO TID [facility] Last Admin: 09/25/17 13:52 Dose: Not Given Tamsulosin HCl (Flomax) 0.4 mg PO DAILY [facility] Last Admin: 09/25/17 09:42 Dose: 0.4 mg Tiotropium [place] (Spiriva) 18 mcg INH RQD [facility] Vitamin B Complex/Vit C/Folic Acid (Nephro-Julianna) 1 tab PO DAILY [facility] Last Admin: 09/25/17 09:42 Dose: 1 tab - Labs Labs: 09/25/17 07:18 09/25/17 07:18 PT 11.6 SECONDS (9.7-12.2) 09/24/17 18:14 INR 1.0 09/24/17 18:14 APTT 28 SECONDS (21-34) 09/25/17 17:15 Attending/Attestation - Attestation I have personally seen and examined this patient.: Yes I have fully participated in the care of the patient.: Yes I have reviewed all pertinent clinical information, including history, physical exam and plan: Yes Notes (Text): 09/25/17 18:49 Medical attending: Patient was seen and examined by me earlier in the day with the medical communication specialist. Agree with the above note by the resident Currently the patient remains on IV abx Additional imaging of the forarm that just had [place] [facility] [place]RAY as well as arterial and venous study of that arm. Maybe later a CT scan as well. Patient has HD via a left permacatherization that he says has been working ok at this time. thank you Bert Olsen
[2017-09-25] MEDS: Saccharomyces Boulardi 250 mg Cap PO SCH ×2 (16:00→18:00)
--- NOTE | 2017-09-25 16:13 | CP.PCM.CON ---
History of Present Illness - History of Present Illness History of Present Illness: dictated Past Patient History - Infectious Disease Hx of Infectious Diseases: None - Past Medical History & Family History Past Medical History?: Yes Past Family History: Reviewed and not pertinent - Past Social History Smoking Status: Former Smoker Chewing Tobacco Use: No Cigar Use: No Alcohol: None Drugs: Denies Home Situation {Lives}: Alone - CARDIAC Hx Hypercholesterolemia: Yes Hx Hypertension: Yes - PULMONARY Hx Chronic Obstructive Pulmonary Disease (COPD): Yes - NEUROLOGICAL Hx Neurological Disorder: No - HEENT Hx HEENT Problems: No - RENAL Hx Chronic Kidney Disease: Yes Date of Last Dialysis Treatment: 09/22/17 Hx Kidney Stones: Yes (Rt kidney) - ENDOCRINE/METABOLIC Hx Endocrine Disorders: No - HEMATOLOGICAL/ONCOLOGICAL Hx Anemia: Yes - INTEGUMENTARY Hx Dermatological Problems: No - MUSCULOSKELETAL/RHEUMATOLOGICAL Hx Arthritis: Yes (BACK) - GASTROINTESTINAL Hx Gastrointestinal Disorders: Yes Other/Comment: chronic constipation - GENITOURINARY/GYNECOLOGICAL Hx Genitourinary Disorders: Yes Hx Prostate Problems: Yes (hx of turp) - PSYCHIATRIC Hx Substance Use: No - SURGICAL HISTORY Hx Surgeries: Yes Hx Arteriovenous Shunt: Yes (right upper arm) Hx Vascular Access Device: Yes (BILATERAL ARM SHUNTS) Other/Comment: Prostate sx - ANESTHESIA Hx Anesthesia: Yes Hx Anesthesia Reactions: No Hx Malignant Hyperthermia: No Meds Allergies/Adverse Reactions: Allergies Allergy/AdvReac Type Severity Reaction Status Date / Time No Known Allergies Allergy Verified 09/24/17 16:32 - Medications Medications: Current Medications Acetaminophen (Tylenol 325mg Tab) 650 mg PO Q6 PRN PRN Reason: Pain, Mild (1-3) Last Admin: 09/24/17 23:40 Dose: 650 mg Albuterol (Ventolin Hfa 90 Mcg/Actuation (8 G)) 2 puff INH RQ6 PRN PRN Reason: Shortness of Breath Ergocalciferol (Drisdol 50,000 Intl Units Cap) 1 cap PO QWK [facility] Heparin Sodium (Porcine) (Heparin) 5,000 units SC Q8 [facility] Gentamicin Sulfate 80 mg/ (Sodium Chloride) 102 mls @ 100 mls/hr IVPB Q24H [facility] PRN Reason: Protocol Last Admin: 09/25/17 02:35 Dose: 100 mls/hr Cefepime HCl 0.5 gm/ Sodium (Chloride) 50 mls @ 100 mls/hr IVPB DAILY [facility] PRN Reason: Protocol Last Admin: 09/25/17 09:42 Dose: 100 mls/hr Vancomycin/Sodium Chloride (Vancomycin 1 Gm/Ns 200 Ml) 1 gm in 200 mls @ 133.333 mls/hr IVPB MWF [facility] PRN Reason: Protocol Stop: 09/30/17 09:01 Last Admin: 09/25/17 10:52 Dose: 133.333 mls/hr Pantoprazole Sodium (Protonix Ec Tab) 40 mg PO DAILY [facility] Last Admin: 09/25/17 09:42 Dose: 40 mg Saccharomyces Boulardii (Florastor) 250 mg PO BID [facility] Fluticasone/Salmeterol (Advair Diskus 250/50) 1 puff INH RQ12 [facility] Sevelamer Carbonate (Renvela) 1,600 mg PO TID [facility] Last Admin: 09/25/17 13:52 Dose: Not Given Tamsulosin HCl (Flomax) 0.4 mg PO DAILY [facility] Last Admin: 09/25/17 09:42 Dose: 0.4 mg Tiotropium [place] (Spiriva) 18 mcg INH RQD [facility] Vitamin B Complex/Vit C/Folic Acid (Nephro-Anival) 1 tab PO DAILY [facility] Last Admin: 09/25/17 09:42 Dose: 1 tab Results - Vital Signs Recent Vital Signs: Last Vital Signs Temp 97.8 F 09/25/17 15:24 Pulse 77 09/25/17 15:35 Resp 16 09/25/17 15:35 BP 164/108 H 09/25/17 16:00 Pulse Ox 98 09/25/17 15:00 - Labs Result Diagrams: 09/25/17 07:18 09/25/17 07:18 Labs: Laboratory Results - last 24 hr 09/24/17 09/24/17 09/24/17 18:14 18:14 18:14 WBC 2.6 L RBC 3.32 L Hgb 10.0 L Hct 30.0 L MCV 90.6 MCH 30.1 MCHC 33.2 RDW 18.1 H Plt Count 79 L MPV 9.5 Neut % (Auto) 67.5 Lymph % (Auto) 14.2 L [place] % (Auto) 10.4 H Eos % (Auto) 7.0 H Baso % (Auto) 0.9 Neut # (Auto) 1.8 Lymph # (Auto) 0.4 L [place] # (Auto) 0.3 Eos # (Auto) 0.2 Baso # (Auto) 0.0 ESR PT 11.6 INR 1.0 APTT 29 Sodium 144 Potassium 3.5 L Chloride 98 Carbon Dioxide 32 H Anion Gap 18 BUN 40 H Creatinine 7.8 H* Est GFR ( Amer) 9 Est GFR (Non-Af Amer) 7 Random Glucose 97 Calcium 9.4 Iron TIBC % Saturation Total Bilirubin 0.5 AST 28 ALT 23 Alkaline Phosphatase 57 C-Reactive Protein Total Protein 6.3 Albumin 3.7 Globulin 2.6 Albumin/Globulin Ratio 1.4 Vitamin B12 09/25/17 09/25/17 09/25/17 07:18 07:18 07:18 WBC 2.3 L RBC 3.39 L Hgb 10.1 L Hct 30.4 L MCV 89.8 MCH 29.8 MCHC 33.1 RDW 18.2 H Plt Count 76 L MPV 10.4 Neut % (Auto) 65.7 Lymph % (Auto) 16.3 L [place] % (Auto) 9.9 Eos % (Auto) 7.3 H Baso % (Auto) 0.8 Neut # (Auto) 1.5 L Lymph # (Auto) 0.4 L [place] # (Auto) 0.2 Eos # (Auto) 0.2 Baso # (Auto) 0.0 ESR 37 H PT INR APTT Sodium Potassium Chloride Carbon Dioxide Anion Gap BUN Creatinine Est GFR ( Amer) Est GFR (Non-Af Amer) Random Glucose Calcium Iron 39 L TIBC 225 L % Saturation 17 L Total Bilirubin AST ALT Alkaline Phosphatase C-Reactive Protein Total Protein Albumin Globulin Albumin/Globulin Ratio Vitamin B12 711 09/25/17 07:18 WBC RBC Hgb Hct MCV MCH MCHC RDW Plt Count MPV Neut % (Auto) Lymph % (Auto) [place] % (Auto) Eos % (Auto) Baso % (Auto) Neut # (Auto) Lymph # (Auto) [place] # (Auto) Eos # (Auto) Baso # (Auto) ESR PT INR APTT Sodium 143 Potassium 3.9 Chloride 99 Carbon Dioxide 26 Anion Gap 22 H BUN 53 H Creatinine 8.1 H* Est GFR ( Amer) 8 Est GFR (Non-Af Amer) 7 Random Glucose 83 Calcium 9.3 Iron TIBC % Saturation Total Bilirubin 0.7 AST 31 ALT 27 Alkaline Phosphatase 57 C-Reactive Protein 17.30 H Total Protein 6.3 Albumin 3.7 Globulin 2.6 Albumin/Globulin Ratio 1.5 Vitamin B12
--- NOTE | 2017-09-25 18:07 | CP.PCM.CON ---
History of Present Illness - History of Present Illness History of Present Illness: Vascular surgery consult for Dr. Altman Consulted for: possible infected left AVF Patient is a 62M with PMH of ESRD with multiple Hemodialysis access operations on both upper extremities presented to the ED yesterday for pain, swelling, and erythema of the left upper arm around an AVF site. Patient states he had an AV fistula or shunt (he is uncertain which) [place] [facility] [place]. 3 days post op patient noted swelling inthe upper arm, went back [place] [facility] and was given a scrip for IV antibiotics to be given at dialysis. Patient states symptoms only worsened so he came to [facility]. Patient denies any fevers , chest pain, SOB, numbness in the fingers, weakness in the hand, drianage from the incision site, or any other symptoms. Patient has a left permacath for HD which is currently functioning well. PMH ESRD on HD, HTN, Hodgkin's lymphoma S/p chemotherapy, BPH, COPD, nephrolithiasis PSH: lithotripsy, BL AV shunt with revisions ALL: NKDA Soc: former smoker, denies ETOH or drugs Review of Systems - Review of Systems All systems: reviewed and no additional remarkable complaints except (as per HPI ) Past Patient History - Infectious Disease Hx of Infectious Diseases: None - Past Medical History & Family History Past Medical History?: Yes Past Family History: Reviewed and not pertinent - Past Social History Smoking Status: Former Smoker Chewing Tobacco Use: No Cigar Use: No Alcohol: None Drugs: Denies Home Situation {Lives}: Alone - CARDIAC Hx Hypercholesterolemia: Yes Hx Hypertension: Yes - PULMONARY Hx Chronic Obstructive Pulmonary Disease (COPD): Yes - NEUROLOGICAL Hx Neurological Disorder: No - HEENT Hx HEENT Problems: No - RENAL Hx Chronic Kidney Disease: Yes Date of Last Dialysis Treatment: 09/22/17 Hx Kidney Stones: Yes (Rt kidney) - ENDOCRINE/METABOLIC Hx Endocrine Disorders: No - HEMATOLOGICAL/ONCOLOGICAL Hx Anemia: Yes - INTEGUMENTARY Hx Dermatological Problems: No - MUSCULOSKELETAL/RHEUMATOLOGICAL Hx Arthritis: Yes (BACK) - GASTROINTESTINAL Hx Gastrointestinal Disorders: Yes Other/Comment: chronic constipation - GENITOURINARY/GYNECOLOGICAL Hx Genitourinary Disorders: Yes Hx Prostate Problems: Yes (hx of turp) - PSYCHIATRIC Hx Substance Use: No - SURGICAL HISTORY Hx Surgeries: Yes Hx Arteriovenous Shunt: Yes (right upper arm) Hx Vascular Access Device: Yes (BILATERAL ARM SHUNTS) Other/Comment: Prostate sx - ANESTHESIA Hx Anesthesia: Yes Hx Anesthesia Reactions: No Hx Malignant Hyperthermia: No Meds Allergies/Adverse Reactions: Allergies Allergy/AdvReac Type Severity Reaction Status Date / Time No Known Allergies Allergy Verified 09/24/17 16:32 - Medications Medications: Current Medications Acetaminophen (Tylenol 325mg Tab) 650 mg PO Q6 PRN PRN Reason: Pain, Mild (1-3) Last Admin: 09/25/17 17:43 Dose: 650 mg Albuterol (Ventolin Hfa 90 Mcg/Actuation (8 G)) 2 puff INH RQ6 PRN PRN Reason: Shortness of Breath Ergocalciferol (Drisdol 50,000 Intl Units Cap) 1 cap PO QWK [facility] Heparin Sodium (Porcine) (Heparin) 5,000 units SC Q8 [facility] Cefepime HCl 0.5 gm/ Sodium (Chloride) 50 mls @ 100 mls/hr IVPB DAILY [facility] PRN Reason: Protocol Last Admin: 09/25/17 09:42 Dose: 100 mls/hr Vancomycin/Sodium Chloride (Vancomycin 1 Gm/Ns 200 Ml) 1 gm in 200 mls @ 133.333 mls/hr IVPB MWF [facility] PRN Reason: Protocol Stop: 09/30/17 09:01 Last Admin: 09/25/17 10:52 Dose: 133.333 mls/hr Gentamicin Sulfate 80 mg/ (Sodium Chloride) 102 mls @ 100 mls/hr IVPB MWF [facility] PRN Reason: Protocol Pantoprazole Sodium (Protonix Ec Tab) 40 mg PO DAILY [facility] Last Admin: 09/25/17 09:42 Dose: 40 mg Saccharomyces Boulardii (Florastor) 250 mg PO BID [facility] Fluticasone/Salmeterol (Advair Diskus 250/50) 1 puff INH RQ12 [facility] Sevelamer Carbonate (Renvela) 1,600 mg PO TID [facility] Last Admin: 09/25/17 13:52 Dose: Not Given Tamsulosin HCl (Flomax) 0.4 mg PO DAILY [facility] Last Admin: 09/25/17 09:42 Dose: 0.4 mg Tiotropium [place] (Spiriva) 18 mcg INH RQD [facility] Vitamin B Complex/Vit C/Folic Acid (Nephro-Anival) 1 tab PO DAILY [facility] Last Admin: 04/16/18 09:42 Dose: 1 tab Physical Exam - Constitutional Appears: Well, Non-toxic, No Acute Distress - Head Exam Head Exam: ATRAUMATIC, NORMOCEPHALIC - Eye Exam Eye Exam: Normal appearance. absent: Conjunctival injection, Scleral icterus - ENT Exam ENT Exam: Mucous Membranes Moist, Normal Oropharynx - Respiratory Exam Respiratory Exam: NORMAL BREATHING PATTERN. absent: Accessory Muscle Use, Respiratory Distress - Cardiovascular Exam Cardiovascular Exam: RRR - GI/Abdominal Exam GI & Abdominal Exam: Soft. absent: Distended, Tenderness - Extremities Exam Additional comments: left upper arm with erythema, swelling, and induration surrounding a surgical incision. Surgical incision well approximated and healing well, no fluctuance. Bruit auscultated well. No drainage from incision site, distal pulses palpable, capillary refill intact. - Neurological Exam Neurological exam: Alert, Oriented x3 - Psychiatric Exam Psychiatric exam: Normal Affect, Normal Mood - Skin Skin Exam: Dry, Intact, Normal Color, Warm Additional comments: except as noted in the extremity exam Results - Vital Signs Recent Vital Signs: Last Vital Signs Temp 97.8 F 09/25/17 15:24 Pulse 77 09/25/17 15:35 Resp 16 09/25/17 15:35 BP 142/84 09/25/17 17:25 Pulse Ox 98 09/25/17 15:00 - Labs Result Diagrams: 09/25/17 07:18 09/25/17 07:18 Labs: Laboratory Results - last 24 hr 09/24/17 09/24/17 09/24/17 18:14 18:14 18:14 WBC 2.6 L RBC 3.32 L Hgb 10.0 L Hct 30.0 L MCV 90.6 MCH 30.1 MCHC 33.2 RDW 18.1 H Plt Count 79 L MPV 9.5 Neut % (Auto) 67.5 Lymph % (Auto) 14.2 L [place] % (Auto) 10.4 H Eos % (Auto) 7.0 H Baso % (Auto) 0.9 Neut # (Auto) 1.8 Lymph # (Auto) 0.4 L [place] # (Auto) 0.3 Eos # (Auto) 0.2 Baso # (Auto) 0.0 ESR PT 11.6 INR 1.0 APTT 29 Sodium 144 Potassium 3.5 L Chloride 98 Carbon Dioxide 32 H Anion Gap 18 BUN 40 H Creatinine 7.8 H* Est GFR ( Amer) 9 Est GFR (Non-Af Amer) 7 POC Glucose (mg/dL) Random Glucose 97 Calcium 9.4 Iron TIBC % Saturation Total Bilirubin 0.5 AST 28 ALT 23 Alkaline Phosphatase 57 C-Reactive Protein Total Protein 6.3 Albumin 3.7 Globulin 2.6 Albumin/Globulin Ratio 1.4 Vitamin B12 09/25/17 09/25/17 09/25/17 07:18 07:18 07:18 WBC 2.3 L RBC 3.39 L Hgb 10.1 L Hct 30.4 L MCV 89.8 MCH 29.8 MCHC 33.1 RDW 18.2 H Plt Count 76 L MPV 10.4 Neut % (Auto) 65.7 Lymph % (Auto) 16.3 L [place] % (Auto) 9.9 Eos % (Auto) 7.3 H Baso % (Auto) 0.8 Neut # (Auto) 1.5 L Lymph # (Auto) 0.4 L [place] # (Auto) 0.2 Eos # (Auto) 0.2 Baso # (Auto) 0.0 ESR 37 H PT INR APTT Sodium Potassium Chloride Carbon Dioxide Anion Gap BUN Creatinine Est GFR ( Amer) Est GFR (Non-Af Amer) POC Glucose (mg/dL) Random Glucose Calcium Iron 39 L TIBC 225 L % Saturation 17 L Total Bilirubin AST ALT Alkaline Phosphatase C-Reactive Protein Total Protein Albumin Globulin Albumin/Globulin Ratio Vitamin B12 711 09/25/17 09/25/17 09/25/17 07:18 16:40 17:15 WBC RBC Hgb Hct MCV MCH MCHC RDW Plt Count MPV Neut % (Auto) Lymph % (Auto) [place] % (Auto) Eos % (Auto) Baso % (Auto) Neut # (Auto) Lymph # (Auto) [place] # (Auto) Eos # (Auto) Baso # (Auto) ESR PT INR APTT 28 Sodium 143 Potassium 3.9 Chloride 99 Carbon Dioxide 26 Anion Gap 22 H BUN 53 H Creatinine 8.1 H* Est GFR ( Amer) 8 Est GFR (Non-Af Amer) 7 POC Glucose (mg/dL) 90 Random Glucose 83 Calcium 9.3 Iron TIBC % Saturation Total Bilirubin 0.7 AST 31 ALT 27 Alkaline Phosphatase 57 C-Reactive Protein 17.30 H Total Protein 6.3 Albumin 3.7 Globulin 2.6 Albumin/Globulin Ratio 1.5 Vitamin B12 Assessment & Plan - Assessment and Plan (Free Text) Assessment: 62M with possible infected Left AV fistula surgery site vs cellulitis vs AVF malfunction Plan: -F/U left upper arm ultrasound, arteriogram and venogram -Further surgical planning pending results of the imaging and clinical progression -Continue IV antibiotics per ID -Continue medical management per primary -Will continue to follow with you Thank you for this consult Seen and discussed with Dr. Agapito De La Rosa, PGY2
[2017-09-25] MEDS: Fluticasone-Salmeterol 250-50mcg Diskus INH SCH (20:08)
--- NOTE | 2017-09-26 06:35 | CON ---
DATE: 09/25/2017 INFECTIOUS DISEASE CONSULT REQUESTED BY: Dr. Solis. HISTORY OF PRESENT ILLNESS: This patient is a 62-year-old male. He has endstage renal disease, hypertension. He has lymphoma, status post chemotherapy, and BPH. He presented to the emergency room yesterday with left arm pain and swelling. He states that he had a left arm AV fistula put in approximately 10 days ago, and he returned to [facility] and was given antibiotic to take on dialysis days, and the patient was also told to elevate his arm, and he states nothing is happening, but states the swelling did not get better, and he stopped taking the two medications after two doses and he came here. He gets his dialysis at [place] some place, and he was getting his dialysis today. He showed me his left arm which was extensively swollen with the pain. He said he has had fevers, but he could not say much fever as he probably did not check and was having subjective fevers, chills, shortness of breath, chest pain. He said he has subjective fevers. Denied any chills. Denied shortness of breath. No chest pain. No abdominal pain. No nausea. No vomiting. No diarrhea. He was last hospitalized on 03/01/2017 when he had acquired negative Staphylococcus bacteremia. He has a PermCath on the left side of his chest wall which has been used presently for dialysis and Dr. Alegre is following him here now. PAST MEDICAL HISTORY: Significant for BPH, end-stage renal disease, hypertension, and lymphoma. PAST SURGICAL HISTORY: Significant for kidney stones in 1998, left AV fistula. FAMILY HISTORY: Both parents had hypertension and stroke. SOCIAL HISTORY: Former smoker. Quit 17 years ago, and denies alcohol and drug abuse. REVIEW OF SYSTEMS: Absent for chills, but he did say a subjective fever. No headaches reported. No ear, nose, throat problems reported. Cardiac: No chest pain. No shortness of breath. Denies any cough, dyspnea, or wheezing. Denies any abdominal pain. No nausea. No vomiting. No urinary complaints. He does he denies easy bruisability. He denies any psych issues of confusion or depression or syncope. He does suffer from, however, COPD. He has atrial fibrillation, hypercholesterolemia, hypertension. He is a former smoker. Denies any neurological problems. Denies any HEENT problems. He has had history of kidney stones. He is now on dialysis. He has left arm new fistula placed 10 days ago. Does suffer from back arthritis. GI rowlel, he states he has chronic constipation. : He has history of TURP which was done before, and surgery, he has a AV shunt placed now, and he had bilateral arm shunts, the new one is on the left side now. ALLERGIES: HE DENIES ANY ALLERGIES. MEDICATIONS: We have placed him on vancomycin and gentamicin. He is on albuterol, and he is on cefepime, Tylenol. He is on ergocalciferol, heparin subcu, pantoprazole, fluticasone, so he suffers from asthma also, and he is on these medications, and he is also getting Renvela which is sevelamer carbonate, tamsulosin. He is on Spiriva, and he is on vancomycin 1 gm and on vitamin D. PHYSICAL EXAMINATION: VITAL SIGNS: On examination, I find his temperature has not been elevated, T-max is 97.8, pulse 77, blood pressure 152/80, respirations are . GENERAL: He is waiting to be seen by Dr. Altman. HEENT: Head is atraumatic and normocephalic. Pupils are reactive to light. NECK: Supple. JVP is flat. LUNGS: Clear. No crackles or rales present. HEART: S1, S2 is regular. No murmurs appreciated. ABDOMEN: Soft and nontender. No guarding. No rigidity present. EXTREMITIES: Left upper extremity has swelling with mild erythema, and sutures from the AV fistula are intact. There is marked swelling of the whole left arm, and he is complaining of pain and swelling and mild warmth increase. Right arm is unremarkable. LABORATORY DATA: Labs are noted. Labs showed white count is 2.3, hemoglobin 10.1, hematocrit 30.4, platelet count is 76. He has pancytopenia. He came with a white count of 2.6. It dropped to 2.3 today. Sodium is 143, potassium 3.6, CO2 of 26, BUN 53, creatinine is 8.1, and C-reactive proteins are 17.30, B12 of 711. ASSESSMENT AND PLAN: My impression is that he is postop with AV shunt; has swelling, mild redness and edema there. He needs to be seen by Vascular at this time. I will continue with the IV antibiotics that we have started. I have ordered repeat cultures from the [facility] site, and we will follow. Levon Bradford MD
[2017-09-26] MEDS: Tiotropium 18 mcg Cap For Inhalation INH SCH (07:05)
[2017-09-26] MEDS: Fluticasone-Salmeterol 250-50mcg Diskus INH SCH ×2 (07:05→19:24)
[2017-09-26 07:24] LABS: BASO % 1.2 % (0.0-2.0); EOS # 0.2 K/uL (0.0-0.7); EOS % 7.1 % (0.0-4.0); HEMOGLOBIN 10.5 g/dL (12.0-18.0); LYMPH # 0.4 K/uL (1.0-4.3); LYMPH % 13.4 % (20.0-40.0); MEAN CELL VOLUME 88.9 fL (80.0-94.0); MEAN CORPUSCULAR HEMOGLOBIN 29.9 pg (27.0-31.0); MEAN CORPUSCULAR HGB CONC 33.7 g/dL (33.0-37.0); MEAN PLATELET VOLUME 9.3 fL (7.2-11.7); MONO # 0.3 K/uL (0.0-0.8); MONO % 9.9 % (0.0-10.0); NEUT % 68.4 % (50.0-75.0); RBC 3.49 Mil/uL (4.40-5.90); RED CELL DISTRIBUTION WIDTH 18.2 % (11.5-14.5)
[2017-09-26] MEDS ORDERED: Acetylcysteine 20% Inhal Soln (4ml) INH PRN (07:57)
[2017-09-26] MEDS ORDERED: Acetylcysteine 20% Inhal Soln (4ml) INH ONE (08:12)
[2017-09-26 08:53] LABS: ALB/GLOB RATIO 1.4 (1.0-2.1); ALBUMIN 3.7 g/dL (3.5-5.0); CALCIUM 8.9 mg/dl (8.6-10.4)
[2017-09-26] MEDS: Pantoprazole 40 mg EC Tab PO SCH (09:33)
[2017-09-26] MEDS: Saccharomyces Boulardi 250 mg Cap PO SCH ×2 (09:33→17:12)
[2017-09-26] MEDS: Multivitamin Vitamin B Complex (Nephro-Vite) Tab PO SCH (09:33)
--- NOTE | 2017-09-26 09:37 | RAD ---
PROCEDURE: HISTORY: Left forearm pain, with AV fistula for HD COMPARISON: None TECHNIQUE: Three views each side FINDINGS: Left forearm: A tubular graft -inferred for AV fistula projects over the left anterior soft tissues at the elbow joint. No gas-forming cellulitis here noted. There is diffuse left upper and left lower arm soft tissue swelling including extensive subcutaneous circumferential reticulated edema.No periosteal reaction or cortical interruption seen to suggest osteomyelitis. Right forearm: Well corticated ossifications border the ulnar styloid consistent with old osseous avulsions. Additional calcific/tendinopathy under loose bodies at the elbow joint level also present. No acute fracture seen. No gas-forming cellulitis. No periosteal reaction or acute appearing cortical interruption IMPRESSION: Chronic changes as above. Acute on chronic changes regarding the left forearm compatible with this appearance. Lymphedema and/or cellulitis inferred. No radiographic evidence of osteomyelitis in either side
--- NOTE | 2017-09-26 10:51 | CP.PCM.PN ---
Subjective - Date & Time of Evaluation Date of Evaluation: 09/26/17 Time of Evaluation: 10:48 - Subjective Subjective: PGY-1 surgery progress note for Dr Altman. No acute events noted overnight. Patient complained of pain specifically in left cubital fossa. He denied pain elsewhere. He denied numbness in left hand. He denied bleeding. Denied fevers/chills. Objective - Vital Signs/Intake and Output Vital Signs (last 24 hours): Temp Pulse Resp BP Pulse Ox 97.5 F L 76 20 150/88 100 09/26/17 07:44 09/26/17 07:44 09/26/17 07:44 09/26/17 07:44 09/26/17 07:44 Intake and Output: 09/26/17 09/26/17 06:59 18:59 Intake Total 200 180 Balance 200 180 - Medications Medications: Current Medications Acetaminophen (Tylenol 325mg Tab) 650 mg PO Q6 PRN PRN Reason: Pain, Mild (1-3) Last Admin: 09/25/17 17:43 Dose: 650 mg Albuterol (Ventolin Hfa 90 Mcg/Actuation (8 G)) 2 puff INH RQ6 PRN PRN Reason: Shortness of Breath Ergocalciferol (Drisdol 50,000 Intl Units Cap) 1 cap PO QWK [facility] Heparin Sodium (Porcine) (Heparin) 5,000 units SC Q8 [facility] Last Admin: 09/26/17 05:59 Dose: 5,000 units Cefepime HCl 0.5 gm/ Sodium (Chloride) 50 mls @ 100 mls/hr IVPB DAILY [facility] PRN Reason: Protocol Last Admin: 09/26/17 09:33 Dose: 100 mls/hr Vancomycin/Sodium Chloride (Vancomycin 1 Gm/Ns 200 Ml) 1 gm in 200 mls @ 133.333 mls/hr IVPB MWF [facility] PRN Reason: Protocol Stop: 09/30/17 09:01 Last Admin: 09/25/17 10:52 Dose: 133.333 mls/hr Gentamicin Sulfate 80 mg/ (Sodium Chloride) 102 mls @ 100 mls/hr IVPB [facility] [place] PRN Reason: Protocol Pantoprazole Sodium (Protonix Ec Tab) 40 mg PO DAILY [facility] Last Admin: 09/26/17 09:33 Dose: 40 mg Saccharomyces Boulardii (Florastor) 250 mg PO BID [facility] Last Admin: 09/26/17 09:33 Dose: 250 mg Fluticasone/Salmeterol (Advair Diskus 250/50) 1 puff INH RQ12 [facility] Last Admin: 09/25/17 20:08 Dose: Not Given Sevelamer Carbonate (Renvela) 1,600 mg PO TID [facility] Last Admin: 09/26/17 09:34 Dose: Not Given Tamsulosin HCl (Flomax) 0.4 mg PO DAILY [facility] Last Admin: 09/26/17 09:33 Dose: 0.4 mg Tiotropium Protection (Spiriva) 18 mcg INH RQD [facility] Vitamin B Complex/Vit C/Folic Acid (Nephro-Anival) 1 tab PO DAILY [facility] Last Admin: 09/26/17 09:33 Dose: 1 tab - Labs Labs: 09/26/17 07:13 09/26/17 07:13 PT 11.6 SECONDS (9.7-12.2) 09/24/17 18:14 INR 1.0 09/24/17 18:14 APTT 28 SECONDS (21-34) 09/25/17 17:15 - Additional Findings Additional findings: - Constitutional Appears: Well, Non-toxic, No Acute Distress - Head Exam Head Exam: ATRAUMATIC, NORMOCEPHALIC - Eye Exam Eye Exam: Normal appearance. absent: Conjunctival injection, Scleral icterus - ENT Exam ENT Exam: Mucous Membranes Moist, Normal Oropharynx - Respiratory Exam Respiratory Exam: NORMAL BREATHING PATTERN. absent: Accessory Muscle Use, Respiratory Distress - Cardiovascular Exam Cardiovascular Exam: RRR - GI/Abdominal Exam GI & Abdominal Exam: Soft. absent: Distended, Tenderness - Extremities Exam Additional comments: left upper arm with erythema, swelling, and induration surrounding a surgical incision. Surgical incision well approximated and healing well, no fluctuance. Bruit auscultated well. No drainage from incision site, distal pulses palpable, capillary refill intact. - Neurological Exam Neurological exam: Alert, Oriented x3 - Psychiatric Exam Psychiatric exam: Normal Affect, Normal Mood - Skin Skin Exam: Dry, Intact, Normal Color, Warm Additional comments: except as noted in the extremity exam Assessment and Plan - Assessment and Plan (Free Text) Assessment: 62M with possible infected Left AV fistula surgery site vs cellulitis vs AVF malfunction Plan: -F/U left upper arm ultrasound, arteriogram and venogram * If occlusion suspected based on imaging results, patient will need to return [place] [facility] [place] revised by [place] at [facility] ([place]. Huber) -Continue IV antibiotics per ID -Continue medical management per primary -Will continue to follow with you Thank you for this consult Discussed with Dr. Altman
--- NOTE | 2017-09-26 12:53 | US ---
Limited left upper extremity soft tissue ultrasound History: Cellulitis. Comparison: CT scan dated 09/25/2017 Technique: Limited left upper extremity soft tissue ultrasound was performed. Findings: Heterogeneous complex collection measuring 6.5 x 3.7 x 5.7 centimeters demonstrating a predominantly hypoechoic appearance with associated internal areas of increased echogenicity. This is noted medial to the elbow with adjacent overlying scar tissue. This appears adjacent to the dialysis graft. This may represent a complex hematoma; however, additional etiologies such as phlegmon and or developing abscess collection cannot entirely be excluded. Clinical correlation. Prominent heterogeneous fluid within the subcutaneous soft tissues consistent with a cellulitis. Impression: Heterogeneous complex collection measuring 6.5 x 3.7 x 5.7 centimeters demonstrating a predominantly hypoechoic appearance with associated internal areas of increased echogenicity. This is noted medial to the elbow with adjacent overlying scar tissue. This appears adjacent to the dialysis graft. This may represent a complex hematoma; however, additional etiologies such as phlegmon and or developing abscess collection cannot entirely be excluded. Clinical correlation. Prominent heterogeneous fluid within the subcutaneous soft tissues consistent with a cellulitis.
--- NOTE | 2017-09-26 13:25 | CP.PCM.PN ---
Subjective - Date & Time of Evaluation Date of Evaluation: 09/26/17 Time of Evaluation: 13:24 - Subjective Subjective: seen and examined left arm ultrasound report noted afebrile, no leukocytosis, cultures negative pt denies any pain in left arm, no fevers chills sob chest pain dizziness headache n/v/d Objective - Vital Signs/Intake and Output Vital Signs (last 24 hours): Temp Pulse Resp BP Pulse Ox 97.5 F L 76 20 150/88 100 09/26/17 07:44 09/26/17 07:44 09/26/17 07:44 09/26/17 07:44 09/26/17 07:44 Intake and Output: 09/26/17 09/26/17 06:59 18:59 Intake Total 200 180 Balance 200 180 - Medications Medications: Current Medications Acetaminophen (Tylenol 325mg Tab) 650 mg PO Q6 PRN PRN Reason: Pain, Mild (1-3) Last Admin: 09/25/17 17:43 Dose: 650 mg Albuterol (Ventolin Hfa 90 Mcg/Actuation (8 G)) 2 puff INH RQ6 PRN PRN Reason: Shortness of Breath Ergocalciferol (Drisdol 50,000 Intl Units Cap) 1 cap PO QWK [facility] Heparin Sodium (Porcine) (Heparin) 5,000 units SC Q8 [facility] Last Admin: 09/26/17 13:03 Dose: 5,000 units Cefepime HCl 0.5 gm/ Sodium (Chloride) 50 mls @ 100 mls/hr IVPB DAILY [facility] PRN Reason: Protocol Last Admin: 09/26/17 09:33 Dose: 100 mls/hr Vancomycin/Sodium Chloride (Vancomycin 1 Gm/Ns 200 Ml) 1 gm in 200 mls @ 133.333 mls/hr IVPB MWF [facility] PRN Reason: Protocol Stop: 09/30/17 09:01 Last Admin: 09/25/17 10:52 Dose: 133.333 mls/hr Gentamicin Sulfate 80 mg/ (Sodium Chloride) 102 mls @ 100 mls/hr IVPB MWF [facility] PRN Reason: Protocol Pantoprazole Sodium (Protonix Ec Tab) 40 mg PO DAILY [facility] Last Admin: 09/26/17 09:33 Dose: 40 mg Saccharomyces Boulardii (Florastor) 250 mg PO BID [facility] Last Admin: 09/26/17 09:33 Dose: 250 mg Fluticasone/Salmeterol (Advair Diskus 250/50) 1 puff INH RQ12 [facility] Last Admin: 09/26/17 07:05 Dose: 1 puff Sevelamer Carbonate (Renvela) 1,600 mg PO TID [facility] Last Admin: 09/26/17 13:04 Dose: Not Given Tamsulosin HCl (Flomax) 0.4 mg PO DAILY [facility] Last Admin: 09/26/17 09:33 Dose: 0.4 mg Tiotropium [place] (Spiriva) 18 mcg INH RQD [facility] Last Admin: 09/26/17 07:05 Dose: 18 mcg Vitamin B Complex/Vit C/Folic Acid (Nephro-Anival) 1 tab PO DAILY [facility] Last Admin: 09/26/17 09:33 Dose: 1 tab - Labs Labs: 09/26/17 07:13 09/26/17 07:13 PT 11.6 SECONDS (9.7-12.2) 09/24/17 18:14 INR 1.0 09/24/17 18:14 APTT 28 SECONDS (21-34) 09/25/17 17:15 - Constitutional Appears: No Acute Distress, Chronically Ill - Head Exam Head Exam: NORMAL INSPECTION, NORMOCEPHALIC - Eye Exam Eye Exam: Normal appearance, PERRL - ENT Exam ENT Exam: Mucous Membranes Moist, Normal Exam - Neck Exam Neck Exam: Full ROM, Normal Inspection - Respiratory Exam Respiratory Exam: Clear to Ausculation Bilateral, NORMAL BREATHING PATTERN - Cardiovascular Exam Cardiovascular Exam: REGULAR RHYTHM, RRR - GI/Abdominal Exam GI & Abdominal Exam: Distended, Soft - Extremities Exam Additional comments: lue arm w/ erythema swelling - Neurological Exam Neurological Exam: Alert, Awake, Oriented x3 - Skin Skin Exam: Normal Color, Warm Assessment and Plan (1) Cellulitis of arm Status: Acute (2) HTN (hypertension) Status: Acute (3) Left upper extremity swelling Status: Acute (4) ESRD (end stage renal disease) on dialysis Status: Chronic (5) Anemia Status: Acute - Assessment and Plan (Free Text) Assessment: f/u w/ vascular regarding need for surgery maintain iv antibiotics, ID on case hd mwf
--- NOTE | 2017-09-26 15:01 | CT ---
PROCEDURE: CT PROXIMAL LEFT UPPER EXTREMITY WITHOUT CONTRAST HISTORY: Left arm pain COMPARISON: Left humerus MRI 03/03/2017. TECHNIQUE: A volumetric CT acquisition was performed through the left humerus without intravenous contrast. Reformatted datasets provided in sagittal axial and coronal planes. Contrast Dose: None Radiation dose:Total exam DLP = 649.72 mGy-cm. This CT exam was performed using one or more of the following dose reduction techniques: Automated exposure control, adjustment of the mA and/or kV according to patient size, and/or use of iterative reconstruction technique. FINDINGS: There is no fracture or destructive bony lesion identified involving the right humerus. degenerative changes seen the glenohumeral joint as well as incidentally at the acromioclavicular joint. Lesser degenerative changes are seen at the elbow joint articulations. Note is made of diffusely thickened dermis and prominent reticular markings throughout the subcutaneous fat diffusely throughout the upper left arm and extending into the left shoulder pattern suggests of cellulitis. Left axilla lymphadenopathy is appreciated including a 3.5 x 2.8 cm enlarged lymph node. A low-density fluid collection is appreciated less than 10 Hounsfield units and 6.8 x 4.5 x 5.1 cm in the anteromedial mid to distal left upper extremity in the superficial and deep subcutaneous fat. It approaches the anterior neurovascular sheath. Note is made of partially collapsed vascular graft material extending from the superficial subcutaneous fat into the neurovascular sheath as well. IMPRESSION: There is a fluid collection within the superficial and deep subcutaneous fat of the mid to distal mid to distal proximal left upper extremity measuring 6.8 x 4.5 x 5.1 cm which is poorly characterized given lack of intravenous contrast. This may represent a seroma or chronic hematoma though an abscess is not completely excluded. Cellulitis is seen throughout the proximal left upper extremity extending to the shoulder without emphysematous changes. Consider follow-up CT with contrast for added clarification or potential ultrasound or CT-guided aspiration. Prior arteriovenous graft or fistula in question appearing collapsed in part suggesting occlusion. Clinically correlate further. Prominent left axillary lymphadenopathy. Concordant preliminary report from [facility], 09/25/2017.
--- NOTE | 2017-09-26 15:15 | CP.PCM.PN ---
<EldonKarinjacki Porter - Last Filed: 09/26/17 17:27> Subjective - Date & Time of Evaluation Date of Evaluation: 09/26/17 Time of Evaluation: 07:05 - Subjective Subjective: Medicine progress note ( Dr. Olsen's service) Patient was seen and examined at bedside. Patient was resting comfortably in bed. Patient denies any symptoms of fever, chills, nausea, vomiting, chest pain , SOB, palpitations. Patient still admits to mild left arm pain at the site of his AVF. Objective - Vital Signs/Intake and Output Vital Signs (last 24 hours): Temp Pulse Resp BP Pulse Ox 97.5 F L 76 20 150/88 100 09/26/17 07:44 09/26/17 07:44 09/26/17 07:44 09/26/17 07:44 09/26/17 07:44 Intake and Output: 09/26/17 09/26/17 06:59 18:59 Intake Total 200 580 Balance 200 580 - Medications Medications: Current Medications Acetaminophen (Tylenol 325mg Tab) 650 mg PO Q6 PRN PRN Reason: Pain, Mild (1-3) Last Admin: 09/25/17 17:43 Dose: 650 mg Albuterol (Ventolin Hfa 90 Mcg/Actuation (8 G)) 2 puff INH RQ6 PRN PRN Reason: Shortness of Breath Ergocalciferol (Drisdol 50,000 Intl Units Cap) 1 cap PO QWK [facility] Heparin Sodium (Porcine) (Heparin) 5,000 units SC Q8 [facility] Last Admin: 09/26/17 13:03 Dose: 5,000 units Cefepime HCl 0.5 gm/ Sodium (Chloride) 50 mls @ 100 mls/hr IVPB DAILY [facility] PRN Reason: Protocol Last Admin: 09/26/17 09:33 Dose: 100 mls/hr Vancomycin/Sodium Chloride (Vancomycin 1 Gm/Ns 200 Ml) 1 gm in 200 mls @ 133.333 mls/hr IVPB MWF [facility] PRN Reason: Protocol Stop: 09/30/17 09:01 Last Admin: 09/25/17 10:52 Dose: 133.333 mls/hr Gentamicin Sulfate 80 mg/ (Sodium Chloride) 102 mls @ 100 mls/hr IVPB [facility] PRN Reason: Protocol Pantoprazole Sodium (Protonix Ec Tab) 40 mg PO DAILY [facility] Last Admin: 09/26/17 09:33 Dose: 40 mg Saccharomyces Boulardii (Florastor) 250 mg PO BID [facility] Last Admin: 09/26/17 09:33 Dose: 250 mg Fluticasone/Salmeterol (Advair Diskus 250/50) 1 puff INH RQ12 [facility] Last Admin: 09/26/17 07:05 Dose: 1 puff Sevelamer Carbonate (Renvela) 1,600 mg PO TID [facility] Last Admin: 09/26/17 13:04 Dose: Not Given Tamsulosin HCl (Flomax) 0.4 mg PO DAILY [facility] Last Admin: 09/26/17 09:33 Dose: 0.4 mg Tiotropium [place] (Spiriva) 18 mcg INH RQD [facility] Last Admin: 09/26/17 07:05 Dose: 18 mcg Vitamin B Complex/Vit C/Folic Acid (Nephro-Julianna) 1 tab PO DAILY [facility] Last Admin: 09/26/17 09:33 Dose: 1 tab - Labs Labs: 09/26/17 07:13 09/26/17 07:13 PT 11.6 SECONDS (9.7-12.2) 09/24/17 18:14 INR 1.0 09/24/17 18:14 APTT 28 SECONDS (21-34) 09/25/17 17:15 - Constitutional Appears: Well, No Acute Distress - Head Exam Head Exam: ATRAUMATIC, NORMAL INSPECTION - Eye Exam Eye Exam: EOMI, Normal appearance - ENT Exam ENT Exam: Mucous Membranes Moist - Neck Exam Additional comments: Left Permacath in place for HD - Respiratory Exam Respiratory Exam: Clear to Ausculation Bilateral, NORMAL BREATHING PATTERN. absent: Rhonchi, Wheezes - Cardiovascular Exam Cardiovascular Exam: REGULAR RHYTHM, +S1, +S2 - GI/Abdominal Exam GI & Abdominal Exam: Soft, Normal Bowel Sounds. absent: Firm, Guarding, Rigid, Tenderness - Extremities Exam Extremities Exam: Normal Inspection. absent: Calf Tenderness, Pedal Edema - Neurological Exam Neurological Exam: Alert, Awake, Oriented x3 - Psychiatric Exam Psychiatric exam: Normal Affect - Skin Skin Exam: Normal Color Assessment and Plan (1) Cellulitis of left arm Assessment & Plan: [facility] Afebrile and no leukocytosis Consultations: * Vascular surgery, Dr. Altman---> Help appreciated -As per surgical recommendation, If occlusion suspected based on imaging results , patient will need to return to [facility] to have surgical site revised by surgeon at [facility] (Dr. Huber) * Infectious disease, Dr. Bradford---> Help appreciated - Management as per recommendation Diagnostic imaging/ labs: * ESR and CRP: 37 and 17.30 * Forearm X-ray: Chronic changes as above. Acute on chronic changes regarding the left forearm compatible with this appearance. Lymphedema and/or cellulitis inferred. No radiographic evidence of osteomyelitis in either side * Left arm CT: There is a fluid collection within the superficial and deep subcutaneous fat of the mid to distal mid to distal proximal left upper extremity measuring 6.8 x 4.5 x 5.1 cm which is poorly characterized given lack of intravenous contrast. This may represent a seroma or chronic hematoma though an abscess is not completely excluded. Cellulitis is seen throughout the proximal left upper extremity extending to the shoulder without emphysematous changes. Consider follow-up CT with contrast for added clarification or potential ultrasound or CT-guided aspiration. Prior arteriovenous graft or fistula in question appearing collapsed in part suggesting occlusion. Clinically correlate further. Prominent left axillary lymphadenopathy. * Left upper extremity US: Heterogeneous complex collection measuring 6.5 x 3.7 x 5.7 centimeters demonstrating a predominantly hypoechoic appearance with associated internal areas of increased echogenicity. This is noted medial to the elbow with adjacent overlying scar tissue. This appears adjacent to the dialysis graft. This may represent a complex hematoma; however, additional etiologies such as phlegmon and or developing abscess collection cannot entirely be excluded. Clinical correlation. Prominent heterogeneous fluid within the subcutaneous soft tissues consistent with a cellulitis. * Venous doppler and arterial duplex scan and CT * Blood culture (09/24/17): Negative > 24 hours Medications: -Vancomycin 1gm IV MWF -Gentamicin 80mg IV daily -Cefepime IV 0.5gm IV daily -Florastor 250mg PO BID Status: Acute (2) ESRD (end stage renal disease) on dialysis Assessment & Plan: Body Press Operator, Dr. Alegre---> Help appreciated * HD on MWF, Started HD since 2014, last HD 09/22/17 Medications: -Renvela 1,600mg PO TID -Vitamin D 92480s weekly - Nephro-julianna 1 tab PO daily Status: Chronic (3) Coccydynia Assessment & Plan: -Tylenol 650mg prn -Recommended patient to avoid position of pain Status: Chronic (4) Chronic obstructive pulmonary disease Assessment & Plan: -Albuterol inh Q6 prn -Spiriva 18mcg Status: Chronic (5) Atrial fibrillation Assessment & Plan: -Aspirin 81mg -Lopressor 50mg Q12 -CHADS-VASc score of 1 (HTN) -Echo 02/2017 left ventricle systolic function is normal, EF:50-55%, diastolic dysfunction Status: Chronic (6) BPH (benign prostatic hyperplasia) Assessment & Plan: -Flomax 0.4mg Status: Chronic (7) Prophylactic measure Assessment & Plan: GI: Protonix 40mg PO daily DVT: Heparin 5,000 units SC Renal diet All plans and management as per Dr. Olsen Status: Acute <Bert Olsen - Last Filed: 09/26/17 19:22> Objective - Vital Signs/Intake and Output Vital Signs (last 24 hours): Temp Pulse Resp BP Pulse Ox 98.8 F 81 20 148/80 98 09/26/17 16:33 09/26/17 16:33 09/26/17 16:33 09/26/17 16:33 09/26/17 16:33 Intake and Output: 09/26/17 09/27/17 18:59 06:59 Intake Total 580 Balance 580 - Medications Medications: Current Medications Acetaminophen (Tylenol 325mg Tab) 650 mg PO Q6 PRN PRN Reason: Pain, Mild (1-3) Last Admin: 09/25/17 17:43 Dose: 650 mg Albuterol (Ventolin Hfa 90 Mcg/Actuation (8 G)) 2 puff INH RQ6 PRN PRN Reason: Shortness of Breath Ergocalciferol (Drisdol 50,000 Intl Units Cap) 1 cap PO QWK [facility] Heparin Sodium (Porcine) (Heparin) 5,000 units SC Q8 [facility] Last Admin: 09/26/17 13:03 Dose: 5,000 units Cefepime HCl 0.5 gm/ Sodium (Chloride) 50 mls @ 100 mls/hr IVPB DAILY [facility] PRN Reason: Protocol Last Admin: 09/26/17 09:33 Dose: 100 mls/hr Vancomycin/Sodium Chloride (Vancomycin 1 Gm/Ns 200 Ml) 1 gm in 200 mls @ 133.333 mls/hr IVPB MWF [facility] PRN Reason: Protocol Stop: 09/30/17 09:01 Last Admin: 09/25/17 10:52 Dose: 133.333 mls/hr Gentamicin Sulfate 80 mg/ (Sodium Chloride) 102 mls @ 100 mls/hr IVPB MWF [facility] PRN Reason: Protocol Pantoprazole Sodium (Protonix Ec Tab) 40 mg PO DAILY [facility] Last Admin: 09/26/17 09:33 Dose: 40 mg Saccharomyces Boulardii (Florastor) 250 mg PO BID [facility] Last Admin: 09/26/17 17:12 Dose: 250 mg Fluticasone/Salmeterol (Advair Diskus 250/50) 1 puff INH RQ12 [facility] Last Admin: 09/26/17 07:05 Dose: 1 puff Sevelamer Carbonate (Renvela) 1,600 mg PO TID [facility] Last Admin: 09/26/17 17:12 Dose: 1,600 mg Tamsulosin HCl (Flomax) 0.4 mg PO DAILY [facility] Last Admin: 09/26/17 09:33 Dose: 0.4 mg Tiotropium [place] (Spiriva) 18 mcg INH RQD [facility] Last Admin: 09/26/17 07:05 Dose: 18 mcg Vitamin B Complex/Vit C/Folic Acid (Nephro-Julianna) 1 tab PO DAILY [facility] Last Admin: 09/26/17 09:33 Dose: 1 tab - Labs Labs: 09/26/17 07:13 09/26/17 07:13 PT 11.6 SECONDS (9.7-12.2) 09/24/17 18:14 INR 1.0 09/24/17 18:14 APTT 28 SECONDS (21-34) 09/25/17 17:15 Attending/Attestation - Attestation I have personally seen and examined this patient.: Yes I have fully participated in the care of the patient.: Yes I have reviewed all pertinent clinical information, including history, physical exam and plan: Yes Notes (Text): 09/26/17 19:19 Medical attending: Patient was seen and examined by me. Agree with the above note by the resident. I saw the patient earlier with the medical technologist hematology. The patient reported he thought the left arm swelling has decreased from previous. I asked him repeatedly if he thought the swelling was better and he repeatedly said he thought it was improving. We are still pending imaging of the arterial and venous as well as CT of the forearm. I explained to the patient that reguardless of what the imaging shows, at some point when he is discharged - he will need to follow up with the surgeon at [facility] who did the surgery for follow up thank you Bert Olsen
[2017-09-27 06:43] LABS: BASO % 0.8 % (0.0-2.0); EOS # 0.2 K/uL (0.0-0.7); EOS % 7.2 % (0.0-4.0); HEMOGLOBIN 10.2 g/dL (12.0-18.0); LYMPH # 0.4 K/uL (1.0-4.3); LYMPH % 13.6 % (20.0-40.0); MEAN CELL VOLUME 88.8 fL (80.0-94.0); MEAN CORPUSCULAR HEMOGLOBIN 29.7 pg (27.0-31.0); MEAN CORPUSCULAR HGB CONC 33.5 g/dL (33.0-37.0); MEAN PLATELET VOLUME 10.5 fL (7.2-11.7); MONO # 0.3 K/uL (0.0-0.8); MONO % 11.5 % (0.0-10.0); NEUT % 66.9 % (50.0-75.0); NRBC % 0.1 % (0.0-2.0); RBC 3.44 Mil/uL (4.40-5.90); WHITE BLOOD COUNT 2.9 K/uL (4.8-10.8)
[2017-09-27] MEDS: Fluticasone-Salmeterol 250-50mcg Diskus INH SCH ×2 (07:10→19:27)
[2017-09-27] MEDS: Tiotropium 18 mcg Cap For Inhalation INH SCH (07:10)
[2017-09-27 07:29] LABS: ALB/GLOB RATIO 1.6 (1.0-2.1); ALBUMIN 3.8 g/dL (3.5-5.0); CALCIUM 8.9 mg/dl (8.6-10.4)
--- NOTE | 2017-09-27 09:11 | VASCLAB ---
PROCEDURE: Left Upper Extremity Venous Duplex Exam HISTORY: R/O Clot and cellulits, Left arm pain PRIORS: None. TECHNIQUE: Left upper extremity, internal jugular, subclavian, axillary, brachial, ulnar, radial, basilic and upper cephalic veins were evaluated. Flow was assessed with color Doppler, compressibility, assessment of phasic flow and augmentation response. Report prepared by TONY Narayanan, RVT FINDINGS: LEFT: 1. Internal Jugular: 1.1. Compressibility - Partial: Thrombus - None : Flow - Phasic: Augmentation -Normal: Reflux - None. 2. Subclavian: 2.1. Compressibility - : Thrombus - : Flow - : Augmentation -: Reflux - . 3. Axillary: 3.1. Compressibility - Partial: Thrombus - None : Flow - Phasic: Augmentation -Normal: Reflux - None. 4. Brachial: 4.1. Compressibility - Partial: Thrombus - None: Flow - Phasic: Augmentation -Normal: Reflux - None. 5. Ulnar: 5.1. Compressibility - Fully compressible: Thrombus - None: Flow - Phasic: Augmentation -Normal: Reflux - None. 6. Radial: 6.1. Compressibility - Fully compressible: Thrombus - None: Flow - Phasic: Augmentation - Normal: Reflux - None. 7. Cephalic: 7.1. Compressibility - Fully compressible: Thrombus - None: Flow - Phasic: Augmentation -Normal: Reflux - None. 8. Basilic: 8.1. Compressibility - Fully compressible: Thrombus - None: Flow - Phasic: Augmentation -Normal: Reflux - None. OTHER FINDINGS: Left: Technically limited study and compressions due to severe swelling of the left upper extremity. Unable to image the left subclavian vein due line in the chest. IMPRESSION: Left: No evidence of vein thrombosis of the left upper extremity with excellent venous flow. Normal valve function noted of the left side. 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
[2017-09-27] MEDS: Pantoprazole 40 mg EC Tab PO SCH (14:20)
[2017-09-27] MEDS: Multivitamin Vitamin B Complex (Nephro-Vite) Tab PO SCH (14:20)
[2017-09-27] MEDS: Saccharomyces Boulardi 250 mg Cap PO SCH ×2 (14:20→17:23)
--- NOTE | 2017-09-27 15:51 | CP.PCM.PN ---
Subjective - Date & Time of Evaluation Date of Evaluation: 09/27/17 Time of Evaluation: 07:35 - Subjective Subjective: Medicine progress note ( Dr. Olsen's service) Patient was seen and examined at bedside. Patient was resting comfortably in bed. Patient denies any symptoms of fever, chills, nausea, vomiting, chest pain , SOB, palpitations. Patient states that his left arm swelling at the site of his left AVF is improving. Patient is aware that as pre surgical recommendation he is to follow up with his surgeon for his left AVF at [facility]. Objective - Vital Signs/Intake and Output Vital Signs (last 24 hours): Temp Pulse Resp BP Pulse Ox 97.3 F L 73 18 148/83 98 09/27/17 12:55 09/27/17 12:55 09/27/17 12:55 09/27/17 12:55 09/27/17 12:55 Intake and Output: 09/27/17 09/27/17 06:59 18:59 Intake Total 240 240 Balance 240 240 - Medications Medications: Current Medications Acetaminophen (Tylenol 325mg Tab) 650 mg PO Q6 PRN PRN Reason: Pain, Mild (1-3) Last Admin: 09/26/17 23:42 Dose: 650 mg Albuterol (Ventolin Hfa 90 Mcg/Actuation (8 G)) 2 puff INH RQ6 PRN PRN Reason: Shortness of Breath Ergocalciferol (Drisdol 50,000 Intl Units Cap) 1 cap PO QWK [facility] Heparin Sodium (Porcine) (Heparin) 5,000 units SC Q8 [facility] Last Admin: 09/27/17 14:20 Dose: 5,000 units Cefepime HCl 0.5 gm/ Sodium (Chloride) 50 mls @ 100 mls/hr IVPB DAILY [facility] PRN Reason: Protocol Last Admin: 09/26/17 09:33 Dose: 100 mls/hr Vancomycin/Sodium Chloride (Vancomycin 1 Gm/Ns 200 Ml) 1 gm in 200 mls @ 133.333 mls/hr IVPB MWF [facility] PRN Reason: Protocol Stop: 09/30/17 09:01 Last Admin: 09/25/17 10:52 Dose: 133.333 mls/hr Gentamicin Sulfate 80 mg/ (Sodium Chloride) 102 mls @ 100 mls/hr IVPB MWF [facility] PRN Reason: Protocol Last Admin: 09/27/17 14:10 Dose: 100 mls/hr Pantoprazole Sodium (Protonix Ec Tab) 40 mg PO DAILY [facility] Last Admin: 09/27/17 14:20 Dose: 40 mg Saccharomyces Boulardii (Florastor) 250 mg PO BID [facility] Last Admin: 09/27/17 14:20 Dose: 250 mg Fluticasone/Salmeterol (Advair Diskus 250/50) 1 puff INH RQ12 [facility] Last Admin: 09/27/17 07:10 Dose: 1 puff Sevelamer Carbonate (Renvela) 1,600 mg PO TID [facility] Last Admin: 09/27/17 14:20 Dose: 1,600 mg Tamsulosin HCl (Flomax) 0.4 mg PO DAILY [facility] Last Admin: 09/27/17 14:20 Dose: 0.4 mg Tiotropium [place] (Spiriva) 18 mcg INH RQD [facility] Last Admin: 09/27/17 07:10 Dose: 18 mcg Vitamin B Complex/Vit C/Folic Acid (Nephro-Julianna) 1 tab PO DAILY [facility] Last Admin: 09/27/17 14:20 Dose: 1 tab - Labs Labs: 09/27/17 06:28 09/27/17 06:28 PT 11.6 SECONDS (9.7-12.2) 09/24/17 18:14 INR 1.0 09/24/17 18:14 APTT 28 SECONDS (21-34) 09/25/17 17:15 - Constitutional Appears: Well, No Acute Distress - Head Exam Head Exam: ATRAUMATIC, NORMAL INSPECTION - Eye Exam Eye Exam: EOMI, Normal appearance - ENT Exam ENT Exam: Mucous Membranes Moist - Neck Exam Additional comments: Left permacath in place - Respiratory Exam Respiratory Exam: Clear to Ausculation Bilateral, NORMAL BREATHING PATTERN. absent: Chest Wall Tenderness, Prolonged Expiratory Phase, Rhonchi, Wheezes, Respiratory Distress - Cardiovascular Exam Cardiovascular Exam: REGULAR RHYTHM, +S1, +S2. absent: Murmur - GI/Abdominal Exam GI & Abdominal Exam: Soft, Normal Bowel Sounds. absent: Distended, Firm, Guarding, Rigid, Tenderness - Extremities Exam Extremities Exam: Normal Inspection. absent: Calf Tenderness, Pedal Edema Additional comments: Left AVF, palpable thrill and audible bruit - Neurological Exam Neurological Exam: Alert, Awake, Normal Gait, Oriented x3 - Psychiatric Exam Psychiatric exam: Normal Affect - Skin Skin Exam: Normal Color Assessment and Plan (1) Cellulitis of left arm Assessment & Plan: At the AVF Afebrile and no leukocytosis Consultations: * Vascular surgery, Dr. Altman---> Help appreciated -As per surgical recommendation, If occlusion suspected based on imaging results , patient will need to return to [facility] to have surgical site revised by surgeon at [facility] (Dr. Huber) * Infectious disease, Dr. Bradford---> Help appreciated - Management as per recommendation Diagnostic imaging/ labs: * ESR and CRP: 37 and 17.30 * Forearm X-ray: Chronic changes as above. Acute on chronic changes regarding the left forearm compatible with this appearance. Lymphedema and/or cellulitis inferred. No radiographic evidence of osteomyelitis in either side * Left arm CT: There is a fluid collection within the superficial and deep subcutaneous fat of the mid to distal mid to distal proximal left upper extremity measuring 6.8 x 4.5 x 5.1 cm which is poorly characterized given lack of intravenous contrast. This may represent a seroma or chronic hematoma though an abscess is not completely excluded. Cellulitis is seen throughout the proximal left upper extremity extending to the shoulder without emphysematous changes. Consider follow-up CT with contrast for added clarification or potential ultrasound or CT-guided aspiration. Prior arteriovenous graft or fistula in question appearing collapsed in part suggesting occlusion. Clinically correlate further. Prominent left axillary lymphadenopathy. * Left upper extremity US: Heterogeneous complex collection measuring 6.5 x 3.7 x 5.7 centimeters demonstrating a predominantly hypoechoic appearance with associated internal areas of increased echogenicity. This is noted medial to the elbow with adjacent overlying scar tissue. This appears adjacent to the dialysis graft. This may represent a complex hematoma; however, additional etiologies such as phlegmon and or developing abscess collection cannot entirely be excluded. Clinical correlation. Prominent heterogeneous fluid within the subcutaneous soft tissues consistent with a cellulitis. * f/u arterial duplex scan * Blood culture (09/24/17): Negative > 24 hours Medications: -Vancomycin 1gm IV MWF -Gentamicin 80mg IV daily -Cefepime IV 0.5gm IV daily -Florastor 250mg PO BID Status: Acute (2) ESRD (end stage renal disease) on dialysis Assessment & Plan: Manager Action, Dr. Alegre---> Help appreciated * HD on MWF, Started HD since 2014, last HD 09/22/17 Medications: -Renvela 1,600mg PO TID -Vitamin D 89345b weekly - Nephro-julianna 1 tab PO daily Status: Chronic (3) Coccydynia Assessment & Plan: -Tylenol 650mg prn -Recommended patient to avoid position of pain Status: Chronic (4) Chronic obstructive pulmonary disease Assessment & Plan: -Albuterol inh Q6 prn -Spiriva 18mcg Status: Chronic (5) Atrial fibrillation Assessment & Plan: -Aspirin 81mg -Lopressor 50mg Q12 -CHADS-VASc score of 1 (HTN) -Echo 02/2017 left ventricle systolic function is normal, EF:50-55%, diastolic dysfunction Status: Chronic (6) BPH (benign prostatic hyperplasia) Assessment & Plan: -Flomax 0.4mg Status: Chronic (7) Prophylactic measure Assessment & Plan: GI: Protonix 40mg PO daily DVT: Heparin 5,000 units SC Renal diet All plans and management as per Dr. Olsen/ Status: Acute
--- NOTE | 2017-09-27 16:30 | CP.PCM.PN ---
Subjective - Date & Time of Evaluation Date of Evaluation: 09/27/17 Time of Evaluation: 16:28 - Subjective Subjective: tolerated HD no acute distress no sob no fever or chills no n/v/diarrha good u/o no abdominal pain no palpitations no increased thirst no headache no sinus tenderness Objective - Vital Signs/Intake and Output Vital Signs (last 24 hours): Temp Pulse Resp BP Pulse Ox 97.3 F L 73 18 148/83 98 09/27/17 12:55 09/27/17 12:55 09/27/17 12:55 09/27/17 12:55 09/27/17 12:55 Intake and Output: 09/27/17 09/27/17 06:59 18:59 Intake Total 240 240 Balance 240 240 - Medications Medications: Current Medications Acetaminophen (Tylenol 325mg Tab) 650 mg PO Q6 PRN PRN Reason: Pain, Mild (1-3) Last Admin: 09/26/17 23:42 Dose: 650 mg Albuterol (Ventolin Hfa 90 Mcg/Actuation (8 G)) 2 puff INH RQ6 PRN PRN Reason: Shortness of Breath Ergocalciferol (Drisdol 50,000 Intl Units Cap) 1 cap PO QWK [facility] Heparin Sodium (Porcine) (Heparin) 5,000 units SC Q8 [facility] Last Admin: 09/27/17 14:20 Dose: 5,000 units Cefepime HCl 0.5 gm/ Sodium (Chloride) 50 mls @ 100 mls/hr IVPB DAILY [facility] PRN Reason: Protocol Last Admin: 09/27/17 16:08 Dose: 100 mls/hr Vancomycin/Sodium Chloride (Vancomycin 1 Gm/Ns 200 Ml) 1 gm in 200 mls @ 133.333 mls/hr IVPB [facility] PRN Reason: Protocol Stop: 09/30/17 09:01 Last Admin: 09/25/17 10:52 Dose: 133.333 mls/hr Gentamicin Sulfate 80 mg/ (Sodium Chloride) 102 mls @ 100 mls/hr IVPB [facility] PRN Reason: Protocol Last Admin: 09/27/17 14:10 Dose: 100 mls/hr Pantoprazole Sodium (Protonix Ec Tab) 40 mg PO DAILY [facility] Last Admin: 09/27/17 14:20 Dose: 40 mg Saccharomyces Boulardii (Florastor) 250 mg PO BID [facility] Last Admin: 09/27/17 14:20 Dose: 250 mg Fluticasone/Salmeterol (Advair Diskus 250/50) 1 puff INH RQ12 [facility] Last Admin: 09/27/17 07:10 Dose: 1 puff Sevelamer Carbonate (Renvela) 1,600 mg PO TID [facility] Last Admin: 09/27/17 14:20 Dose: 1,600 mg Tamsulosin HCl (Flomax) 0.4 mg PO DAILY [facility] Last Admin: 09/27/17 14:20 Dose: 0.4 mg Tiotropium [place] (Spiriva) 18 mcg INH RQD [facility] Last Admin: 09/27/17 07:10 Dose: 18 mcg Vitamin B Complex/Vit C/Folic Acid (Nephro-Anival) 1 tab PO DAILY [facility] Last Admin: 09/27/17 14:20 Dose: 1 tab - Labs Labs: 09/27/17 06:28 09/27/17 06:28 PT 11.6 SECONDS (9.7-12.2) 09/24/17 18:14 INR 1.0 09/24/17 18:14 APTT 28 SECONDS (21-34) 09/25/17 17:15 - Constitutional Appears: No Acute Distress, Chronically Ill - Head Exam Head Exam: ATRAUMATIC - Eye Exam Eye Exam: EOMI - ENT Exam ENT Exam: Mucous Membranes Moist - Neck Exam Neck Exam: Full ROM. absent: Lymphadenopathy - Respiratory Exam Respiratory Exam: Clear to Ausculation Bilateral. absent: Accessory Muscle Use - Cardiovascular Exam Cardiovascular Exam: REGULAR RHYTHM. absent: Rubs - GI/Abdominal Exam GI & Abdominal Exam: Soft. absent: Tenderness - Extremities Exam Extremities Exam: absent: Pedal Edema Additional comments: left arm with bruit swelling+ - Neurological Exam Neurological Exam: Alert, Awake Assessment and Plan - Assessment and Plan (Free Text) Assessment: maint HD f/u vascular surgery for arm swelling
[2017-09-27] MEDS: Vancomycin 1 gm/NS 200 ml 1 GM/200 ML BAG IVPB SCH (17:22)
--- NOTE | 2017-09-27 17:42 | CP.PCM.PN ---
Subjective - Date & Time of Evaluation Date of Evaluation: 09/27/17 Time of Evaluation: 05:35 - Subjective Subjective: dictated Objective - Vital Signs/Intake and Output Vital Signs (last 24 hours): Temp Pulse Resp BP Pulse Ox 97.3 F L 73 18 148/83 98 09/27/17 12:55 09/27/17 12:55 09/27/17 12:55 09/27/17 12:55 09/27/17 12:55 Intake and Output: 09/27/17 09/27/17 06:59 18:59 Intake Total 240 540 Balance 240 540 - Medications Medications: Current Medications Acetaminophen (Tylenol 325mg Tab) 650 mg PO Q6 PRN PRN Reason: Pain, Mild (1-3) Last Admin: 09/26/17 23:42 Dose: 650 mg Albuterol (Ventolin Hfa 90 Mcg/Actuation (8 G)) 2 puff INH RQ6 PRN PRN Reason: Shortness of Breath Ergocalciferol (Drisdol 50,000 Intl Units Cap) 1 cap PO QWK [facility] Heparin Sodium (Porcine) (Heparin) 5,000 units SC Q8 [facility] Last Admin: 09/27/17 14:20 Dose: 5,000 units Cefepime HCl 0.5 gm/ Sodium (Chloride) 50 mls @ 100 mls/hr IVPB DAILY [facility] PRN Reason: Protocol Last Admin: 09/27/17 16:08 Dose: 100 mls/hr Vancomycin/Sodium Chloride (Vancomycin 1 Gm/Ns 200 Ml) 1 gm in 200 mls @ 133.333 mls/hr IVPB MWF [facility] PRN Reason: Protocol Stop: 09/30/17 09:01 Last Admin: 09/27/17 17:22 Dose: 133.333 mls/hr Gentamicin Sulfate 80 mg/ (Sodium Chloride) 102 mls @ 100 mls/hr IVPB MWF [facility] PRN Reason: Protocol Last Admin: 09/27/17 14:10 Dose: 100 mls/hr Pantoprazole Sodium (Protonix Ec Tab) 40 mg PO DAILY [facility] Last Admin: 09/27/17 14:20 Dose: 40 mg Saccharomyces Boulardii (Florastor) 250 mg PO BID [facility] Last Admin: 09/27/17 17:23 Dose: 250 mg Fluticasone/Salmeterol (Advair Diskus 250/50) 1 puff INH RQ12 [facility] Last Admin: 09/27/17 07:10 Dose: 1 puff Sevelamer Carbonate (Renvela) 1,600 mg PO TID [facility] Last Admin: 09/27/17 17:23 Dose: 1,600 mg Tamsulosin HCl (Flomax) 0.4 mg PO DAILY [facility] Last Admin: 09/27/17 14:20 Dose: 0.4 mg Tiotropium [place] (Spiriva) 18 mcg INH RQD [facility] Last Admin: 09/27/17 07:10 Dose: 18 mcg Vitamin B Complex/Vit C/Folic Acid (Nephro-Anival) 1 tab PO DAILY [facility] Last Admin: 09/27/17 14:20 Dose: 1 tab - Labs Labs: 09/27/17 06:28 09/27/17 06:28 PT 11.6 SECONDS (9.7-12.2) 09/24/17 18:14 INR 1.0 09/24/17 18:14 APTT 28 SECONDS (21-34) 09/25/17 17:15
[2017-09-27 23:22] VITALS: RESP 20
--- NOTE | 2017-09-28 02:45 | PN ---
DATE: INFECTIOUS DISEASE FOLLOWUP NOTE SUBJECTIVE: The patient was seen today. He remains afebrile. He was still concerned about his left arm which is swollen and has not changed much, and he says he did have lot of tests done, and he was also seen by the renal attending. He has been getting hemodialysis through the catheter which is on the left chest wall. He has no shortness of breath. No fever. No chills. No nausea. No vomiting. No diarrhea. He just has swelling of the upper extremity, and I have been giving him antibiotics to cover for infection. PHYSICAL EXAMINATION: VITAL SIGNS: On examination now, I find his temperature is 97.3, pulse is 73, and blood pressure is 148/83, respirations are 18. HEENT: Head is atraumatic, normocephalic. GENERAL: He is alert and oriented. NECK: Supple. LUNGS: Clear. No crackles or rales present. Decreased breath sounds on both bases. HEART: S1, S2, regular. ABDOMEN: Soft, nontender. No guarding. No rigidity present. Left side chest wall catheter has a dressing. EXTREMITIES: Have no edema on the lower extremities. Left extremity remains with edematous, swollen. LABORATORY DATA: Labs are noted. Labs show cultures have been all negative. White count remains at 2.9, hemoglobin 10.2, hematocrit 30.5, platelet count is 88. ASSESSMENT AND PLAN: He has pancytopenia but blood cultures have been all negative. His ultrasound and upper extremity CAT scan shows probably hematoma or seroma. We are talking about an abscess, but cultures have been negative, and he was afebrile, so I would think that we will need to see what Vascular has to say, vascular eval. This was done in another institution. I am not sure if he should be transferred there, but so far, the cultures have been negative and he has been tolerating dialysis and his C-reactive protein was 17.3 when he came and ESR is 37. We will discuss the plan with Primary and Vascular to see what their plans are tomorrow. At this time, I would discontinue the gentamicin and cefepime and will decide about cefepime and vancomycin tomorrow. Levon Bradford MD [facility] # [id number]
[2017-09-28 07:04] LABS: BASO % 0.8 % (0.0-2.0); EOS # 0.2 K/uL (0.0-0.7); EOS % 6.1 % (0.0-4.0); HEMOGLOBIN 10.3 g/dL (12.0-18.0); LYMPH # 0.4 K/uL (1.0-4.3); LYMPH % 14.3 % (20.0-40.0); MEAN CELL VOLUME 88.6 fL (80.0-94.0); MEAN CORPUSCULAR HEMOGLOBIN 29.6 pg (27.0-31.0); MEAN CORPUSCULAR HGB CONC 33.4 g/dL (33.0-37.0); MONO # 0.3 K/uL (0.0-0.8); MONO % 10.6 % (0.0-10.0); NEUT % 68.2 % (50.0-75.0); NRBC % 0.1 % (0.0-2.0); RBC 3.47 Mil/uL (4.40-5.90); RED CELL DISTRIBUTION WIDTH 18.1 % (11.5-14.5); WHITE BLOOD COUNT 2.9 K/uL (4.8-10.8)
[2017-09-28 07:27] LABS: ALB/GLOB RATIO 1.5 (1.0-2.1); ALBUMIN 3.7 g/dL (3.5-5.0)
[2017-09-28 07:58] VITALS: BP 150/90; PULSE 75; TEMP 98.6; O2SAT 98
--- NOTE | 2017-09-28 09:25 | CP.PCM.PN ---
Subjective - Date & Time of Evaluation Date of Evaluation: 09/28/17 Time of Evaluation: 07:00 - Subjective Subjective: [phone], [facility] with Dr. Huber Objective - Vital Signs/Intake and Output Vital Signs (last 24 hours): Temp Pulse Resp BP Pulse Ox 98.6 F 75 20 150/90 98 09/28/17 07:56 09/28/17 07:56 09/28/17 07:56 09/28/17 07:56 09/28/17 07:56 Intake and Output: 09/28/17 09/28/17 06:59 18:59 Intake Total 650 Output Total 550 Balance 100 - Medications Medications: Current Medications Acetaminophen (Tylenol 325mg Tab) 650 mg PO Q6 PRN PRN Reason: Pain, Mild (1-3) Last Admin: 09/26/17 23:42 Dose: 650 mg Albuterol (Ventolin Hfa 90 Mcg/Actuation (8 G)) 2 puff INH RQ6 PRN PRN Reason: Shortness of Breath Last Admin: 09/27/17 19:27 Dose: 2 puff Ergocalciferol (Drisdol 50,000 Intl Units Cap) 1 cap PO QWK [facility] Heparin Sodium (Porcine) (Heparin) 5,000 units SC Q8 [facility] Last Admin: 09/28/17 05:11 Dose: 5,000 units Cefepime HCl 0.5 gm/ Sodium (Chloride) 50 mls @ 100 mls/hr IVPB DAILY [facility] PRN Reason: Protocol Last Admin: 09/27/17 16:08 Dose: 100 mls/hr Vancomycin/Sodium Chloride (Vancomycin 1 Gm/Ns 200 Ml) 1 gm in 200 mls @ 133.333 mls/hr IVPB F [facility] PRN Reason: Protocol Stop: 09/30/17 09:01 Last Admin: 09/27/17 17:22 Dose: 133.333 mls/hr Gentamicin Sulfate 80 mg/ (Sodium Chloride) 102 mls @ 100 mls/hr IVPB [facility] PRN Reason: Protocol Last Admin: 09/27/17 14:10 Dose: 100 mls/hr Pantoprazole Sodium (Protonix Ec Tab) 40 mg PO DAILY [facility] Last Admin: 09/27/17 14:20 Dose: 40 mg Saccharomyces Boulardii (Florastor) 250 mg PO BID [facility] Last Admin: 09/27/17 17:23 Dose: 250 mg Fluticasone/Salmeterol (Advair Diskus 250/50) 1 puff INH RQ12 [facility] Last Admin: 09/27/17 19:27 Dose: 1 puff Sevelamer Carbonate (Renvela) 1,600 mg PO TID [facility] Last Admin: 09/27/17 17:23 Dose: 1,600 mg Tamsulosin HCl (Flomax) 0.4 mg PO DAILY [facility] Last Admin: 09/27/17 14:20 Dose: 0.4 mg Tiotropium [place] (Spiriva) 18 mcg INH RQD [facility] Last Admin: 09/27/17 07:10 Dose: 18 mcg Vitamin B Complex/Vit C/Folic Acid (Nephro-Anival) 1 tab PO DAILY [facility] Last Admin: 09/27/17 14:20 Dose: 1 tab - Labs Labs: 09/28/17 06:56 09/28/17 06:56 PT 11.6 SECONDS (9.7-12.2) 09/24/17 18:14 INR 1.0 09/24/17 18:14 APTT 28 SECONDS (21-34) 09/25/17 17:15 Assessment and Plan (1) Cellulitis of left arm Status: Acute (2) ESRD (end stage renal disease) on dialysis Status: Chronic (3) Coccydynia Status: Chronic (4) Chronic obstructive pulmonary disease Status: Chronic (5) Atrial fibrillation Status: Chronic (6) BPH (benign prostatic hyperplasia) Status: Chronic (7) Prophylactic measure Status: Acute
[2017-09-28] MEDS: Tiotropium 18 mcg Cap For Inhalation INH SCH (09:35)
[2017-09-28] MEDS: Fluticasone-Salmeterol 250-50mcg Diskus INH SCH (09:36)
[2017-09-28] MEDS: Saccharomyces Boulardi 250 mg Cap PO SCH (09:45)
[2017-09-28] MEDS: Pantoprazole 40 mg EC Tab PO SCH (09:45)
[2017-09-28] MEDS: Multivitamin Vitamin B Complex (Nephro-Vite) Tab PO SCH (09:45)
--- NOTE | 2017-09-28 10:40 | CP.PCM.PN ---
Subjective - Date & Time of Evaluation Date of Evaluation: 09/28/17 Time of Evaluation: 10:38 - Subjective Subjective: seen and examined unchanged left arm swelling on iv antibiotics no f/c/sob/cp/dizziness/headache/palpitations/weakness/numbness/rash Objective - Vital Signs/Intake and Output Vital Signs (last 24 hours): Temp Pulse Resp BP Pulse Ox 98.6 F 75 20 150/90 98 09/28/17 07:56 09/28/17 07:56 09/28/17 07:56 09/28/17 07:56 09/28/17 07:56 Intake and Output: 09/28/17 09/28/17 06:59 18:59 Intake Total 650 Output Total 550 Balance 100 - Medications Medications: Current Medications Acetaminophen (Tylenol 325mg Tab) 650 mg PO Q6 PRN PRN Reason: Pain, Mild (1-3) Last Admin: 09/26/17 23:42 Dose: 650 mg Albuterol (Ventolin Hfa 90 Mcg/Actuation (8 G)) 2 puff INH RQ6 PRN PRN Reason: Shortness of Breath Last Admin: 09/27/17 19:27 Dose: 2 puff Ergocalciferol (Drisdol 50,000 Intl Units Cap) 1 cap PO QWK [facility] Heparin Sodium (Porcine) (Heparin) 5,000 units SC Q8 [facility] Last Admin: 09/28/17 05:11 Dose: 5,000 units Cefepime HCl 0.5 gm/ Sodium (Chloride) 50 mls @ 100 mls/hr IVPB DAILY [facility] PRN Reason: Protocol Last Admin: 09/28/17 09:46 Dose: 100 mls/hr Vancomycin/Sodium Chloride (Vancomycin 1 Gm/Ns 200 Ml) 1 gm in 200 mls @ 133.333 mls/hr IVPB MWF [facility] PRN Reason: Protocol Stop: 09/30/17 09:01 Last Admin: 09/27/17 17:22 Dose: 133.333 mls/hr Gentamicin Sulfate 80 mg/ (Sodium Chloride) 102 mls @ 100 mls/hr IVPB MWF [facility] PRN Reason: Protocol Last Admin: 09/27/17 14:10 Dose: 100 mls/hr Pantoprazole Sodium (Protonix Ec Tab) 40 mg PO DAILY [facility] Last Admin: 09/28/17 09:45 Dose: 40 mg Saccharomyces Boulardii (Florastor) 250 mg PO BID [facility] Last Admin: 09/28/17 09:45 Dose: 250 mg Fluticasone/Salmeterol (Advair Diskus 250/50) 1 puff INH RQ12 [facility] Last Admin: 09/28/17 09:36 Dose: 1 puff Sevelamer Carbonate (Renvela) 1,600 mg PO TID [facility] Last Admin: 09/28/17 09:45 Dose: 1,600 mg Tamsulosin HCl (Flomax) 0.4 mg PO DAILY [facility] Last Admin: 09/28/17 09:45 Dose: 0.4 mg Tiotropium [place] (Spiriva) 18 mcg INH RQD [facility] Last Admin: 09/28/17 09:35 Dose: 18 mcg Vitamin B Complex/Vit C/Folic Acid (Nephro-Anival) 1 tab PO DAILY [facility] Last Admin: 09/28/17 09:45 Dose: 1 tab - Labs Labs: 09/28/17 06:56 09/28/17 06:56 PT 11.6 SECONDS (9.7-12.2) 09/24/17 18:14 INR 1.0 09/24/17 18:14 APTT 28 SECONDS (21-34) 09/25/17 17:15 - Constitutional Appears: No Acute Distress, Chronically Ill - Head Exam Head Exam: NORMAL INSPECTION, NORMOCEPHALIC - Eye Exam Eye Exam: Normal appearance, PERRL - ENT Exam ENT Exam: Mucous Membranes Moist, Normal Exam - Neck Exam Neck Exam: Full ROM, Normal Inspection - Respiratory Exam Respiratory Exam: Clear to Ausculation Bilateral, NORMAL BREATHING PATTERN - Cardiovascular Exam Cardiovascular Exam: REGULAR RHYTHM, RRR - GI/Abdominal Exam GI & Abdominal Exam: Distended, Soft, Normal Bowel Sounds - Extremities Exam Extremities Exam: Normal Inspection (lue w/ erythema, swelling, tenderness distal to avf ) - Neurological Exam Neurological Exam: Alert, Awake, Oriented x3 - Psychiatric Exam Psychiatric exam: Normal Affect, Normal Mood - Skin Skin Exam: Dry, Normal Color, Warm Assessment and Plan (1) Cellulitis of arm Status: Acute (2) HTN (hypertension) Status: Acute (3) Left upper extremity swelling Status: Acute (4) ESRD (end stage renal disease) on dialysis Status: Chronic (5) Anemia Status: Acute - Assessment and Plan (Free Text) Assessment: maintain hd mwf, use permcath bp acceptable derrick w/ hd ID and surgical management
--- NOTE | 2017-09-28 21:29 | CP.PCM.DIS ---
Provider - Provider Date of Admission: 09/24/17 20:51 Attending physician: Bert Olsen DO Time Spent in preparation of Discharge (in minutes): 35 Diagnosis - Discharge Diagnosis (1) Cellulitis of left arm Status: Acute (2) ESRD (end stage renal disease) on dialysis Status: Chronic (3) Coccydynia Status: Chronic (4) Chronic obstructive pulmonary disease Status: Chronic (5) Atrial fibrillation Status: Chronic (6) BPH (benign prostatic hyperplasia) Status: Chronic (7) Prophylactic measure Status: Acute Hospital Course - Lab Results Lab Results: Micro Results 09/25/17 16:30 Blood-During Dialysis Blood Culture - Preliminary NO GROWTH AFTER 3 DAYS 09/25/17 17:00 Blood-During Dialysis Blood Culture - Preliminary NO GROWTH AFTER 3 DAYS 09/24/17 17:45 Blood Blood Culture - Preliminary NO GROWTH AFTER 3 DAYS 09/24/17 18:00 Blood Blood Culture - Preliminary NO GROWTH AFTER 3 DAYS Most Recent Lab Values WBC 2.9 K/uL (4.8-10.8) L 09/28/17 06:56 RBC 3.47 Mil/uL (4.40-5.90) L 09/28/17 06:56 Hgb 10.3 g/dL (12.0-18.0) L 09/28/17 06:56 Hct 30.7 % (35.0-51.0) L 09/28/17 06:56 MCV 88.6 fL (80.0-94.0) 09/28/17 06:56 MCH 29.6 pg (27.0-31.0) 09/28/17 06:56 MCHC 33.4 g/dL (33.0-37.0) 09/28/17 06:56 RDW 18.1 % (11.5-14.5) H 09/28/17 06:56 Plt Count 77 K/uL (130-400) L 09/28/17 06:56 MPV 10.0 fL (7.2-11.7) 09/28/17 06:56 Neut % (Auto) 68.2 % (50.0-75.0) 09/28/17 06:56 Lymph % (Auto) 14.3 % (20.0-40.0) L 09/28/17 06:56 [place] % (Auto) 10.6 % (0.0-10.0) H 09/28/17 06:56 Eos % (Auto) 6.1 % (0.0-4.0) H 09/28/17 06:56 Baso % (Auto) 0.8 % (0.0-2.0) 09/28/17 06:56 Neut # (Auto) 2.0 K/uL (1.8-7.0) 09/28/17 06:56 Lymph # (Auto) 0.4 K/uL (1.0-4.3) L 09/28/17 06:56 [place] # (Auto) 0.3 K/uL (0.0-0.8) 09/28/17 06:56 Eos # (Auto) 0.2 K/uL (0.0-0.7) 09/28/17 06:56 Baso # (Auto) 0.0 K/uL (0.0-0.2) 09/28/17 06:56 Differential Comment 09/26/17 07:13 ESR 37 mm/hr (0-15) H 09/25/17 07:18 PT 11.6 SECONDS (9.7-12.2) 09/24/17 18:14 INR 1.0 09/24/17 18:14 APTT 28 SECONDS (21-34) 09/25/17 17:15 Sodium 138 mmol/L (132-148) 09/28/17 06:56 Potassium 4.4 mmol/L (3.6-5.2) 09/28/17 06:56 Chloride 94 mmol/L (98-107) L 09/28/17 06:56 Carbon Dioxide 27 mmol/L (22-30) 09/28/17 06:56 Anion Gap 21 (10-20) H 09/28/17 06:56 BUN 38 mg/dL (9-20) H 09/28/17 06:56 Creatinine 6.3 mg/dL (0.8-1.5) H 09/28/17 06:56 Est GFR ( Amer) 11 09/28/17 06:56 Est GFR (Non-Af Amer) 9 09/28/17 06:56 POC Glucose (mg/dL) 90 mg/dL (65-110) 09/25/17 16:40 Random Glucose 85 mg/dL (75-110) 09/28/17 06:56 Calcium 9.0 mg/dl (8.6-10.4) 09/28/17 06:56 Phosphorus 5.1 mg/dL (2.5-4.5) H 09/28/17 06:56 Magnesium 2.2 mg/dL (1.6-2.3) 09/28/17 06:56 Iron 39 ug/dL (49-181) L 09/25/17 07:18 TIBC 225 ug/dL (250-450) L 09/25/17 07:18 % Saturation 17 (20-55) L 09/25/17 07:18 Total Bilirubin 0.7 mg/dL (0.2-1.3) 09/28/17 06:56 AST 32 U/L (17-59) 09/28/17 06:56 ALT 22 U/L (21-72) 09/28/17 06:56 Alkaline Phosphatase 65 U/L (38-126) 09/28/17 06:56 C-Reactive Protein 17.30 mg/L (0.0-9.9) H 09/25/17 07:18 Total Protein 6.3 g/dL (6.3-8.3) 09/28/17 06:56 Albumin 3.7 g/dL (3.5-5.0) 09/28/17 06:56 Globulin 2.6 gm/dL (2.2-3.9) 09/28/17 06:56 Albumin/Globulin Ratio 1.5 (1.0-2.1) 09/28/17 06:56 Vitamin B12 711 pg/mL (239-931) 09/25/17 07:18 - Hospital Course Hospital Course: HPI (As per admission): 62 year old male with history of ESRD (HD MWF), hypertension, lymphoma s/p chemotherapy, and BPH presents to the ED today complaining of left arm pain and swelling. Patient reports he had a left arm AV fistula surgery by Dr. Huber at [facility] approximately 10 days ago. The surgical site became painful and swollen 3 days after and patient returned to [facility] and was given an antibiotic (patient does not know the name) to take on dialysis days. Patient states his swelling and pain did not get better with this medication and stopped taking it after 2 doses. Patient has been getting HD at [facility]. His last HD session was 2 days ago. Patient admits to dizziness associated with this pain and swelling. Patient denies fever, chills, shortness of breath, chest pain , abdominal pain, nausea, vomiting, or diarrhea. 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 Hospital Course: Patient was admitted with the consideration of Left Arm cellulitis post AVF procedure at [facility]. Infectious disease, Dr. Bradford was consulted, who recommended appropriate antibiotics. Data Modeler, Dr. Shultz's group was consulted as patient has a past medical history of ESRD and on HD. Vascular surgery, Dr. Altman, who made the recommendation for patient to follow up with Dr. Huber, the vascular surgeon at [facility] who did the procedure. Over the course of admission, patient remained stable and had no acute issues; negative blood cultures, afebrile and no leukocytosis. The medical student on this case and I contacted Dr. Huber's office and patient is to follow up at [facility] on Monday, October 04. Patient was made aware of this. Patient was discharge home with proper arrangements of outpatient HD, medications and instructions. Pertinent Imaging/Labs: * ESR and CRP: 37 and 17.30 * Forearm X-ray: Chronic changes as above. Acute on chronic changes regarding the left forearm compatible with this appearance. Lymphedema and/or cellulitis inferred. No radiographic evidence of osteomyelitis in either side * Left arm CT: There is a fluid collection within the superficial and deep subcutaneous fat of the mid to distal mid to distal proximal left upper extremity measuring 6.8 x 4.5 x 5.1 cm which is poorly characterized given lack of intravenous contrast. This may represent a seroma or chronic hematoma though an abscess is not completely excluded. Cellulitis is seen throughout the proximal left upper extremity extending to the shoulder without emphysematous changes. Consider follow-up CT with contrast for added clarification or potential ultrasound or CT-guided aspiration. Prior arteriovenous graft or fistula in question appearing collapsed in part suggesting occlusion. Clinically correlate further. Prominent left axillary lymphadenopathy. * Left upper extremity US: Heterogeneous complex collection measuring 6.5 x 3.7 x 5.7 centimeters demonstrating a predominantly hypoechoic appearance with associated internal areas of increased echogenicity. This is noted medial to the elbow with adjacent overlying scar tissue. This appears adjacent to the dialysis graft. This may represent a complex hematoma; however, additional etiologies such as phlegmon and or developing abscess collection cannot entirely be excluded. Clinical correlation. Prominent heterogeneous fluid within the subcutaneous soft tissues consistent with a cellulitis. * Blood culture (09/24/17): Negative for 3 days This is a brief summary of events. For a complete course, please refer to the medical records Discharge Exam - Head Exam Head Exam: NORMAL INSPECTION, NORMOCEPHALIC Additional comments: Left permacath in place - Eye Exam Eye Exam: EOMI - ENT Exam ENT Exam: Mucous Membranes Moist - Respiratory Exam Respiratory Exam: NORMAL BREATHING PATTERN. absent: Decreased Breath Sounds, Rales, Rhonchi, Respiratory Distress - Cardiovascular Exam Cardiovascular Exam: REGULAR RHYTHM, +S1, +S2 - GI/Abdominal Exam GI & Abdominal Exam: Normal Bowel Sounds, Soft - Extremities Exam Extremities exam: normal inspection Additional comments: Left arm swelling with indurant at the site of Left avf - Neurological Exam Neurological exam: Alert, Normal Gait - Psychiatric Exam Psychiatric exam: Normal Affect - Skin Skin Exam: Normal Color Discharge Plan - Discharge Medications Prescriptions: Amoxicillin/Clavulanate [Augmentin 500 MG-125 MG] 1 tab PO BID 14 Days #28 tab Vancomycin 1gm in NS 250ml [Vancomycin 1gm] 1 gm IVPB MWF 7 Days bag - Follow Up Plan Condition: GUARDED Disposition: HOME/ ROUTINE Instructions: Cellulitis (DC), Renal Failure Diet (DC) Additional Instructions: Please discharge patient home Please resume all your home medications Please follow up with Dr. Huber at [facility], [address], [address], [address], [place], [place] on Monday, October 04, 2017 at 10:30am, Please continue your HD as scheduled, you will need to continue Vancomycin 1gm on HD for a week, M,W, F. Please take your prescription with you to dialysis Please take Augmentin 500mg 1 tablet PO BID for 14 days Please continue to follow up with your nephrology, Dr. Alegre's group Please follow up with your primary care physician within a week of discharge or F/u with [facility] to establish care, Referrals: [facility] [Provider Group] Christiano Alegre MD [Staff Provider] -
[2017-10-01] MEDS ORDERED: Ergocalciferol 50,000 Intl Units Cap PO SCH (10:00)
== END 2017-09-28 16:14 | disposition home or self-care (01) | DRG 277 ==
LOC: C.ER 16:23 → C.9E 20:51 → C.3T 22:15
PROVIDERS: ADMIT Hospitalist; ATTEND Hospitalist
PROC: 5A1D70Z Performance of Urinary Filtration, Intermittent, Less than 6 Hours Per Day (ICD-10-PCS; principal; 2017-09-25)
PROC: 5A1D70Z Performance of Urinary Filtration, Intermittent, Less than 6 Hours Per Day (ICD-10-PCS; 2017-09-27)
DX: L03.114 Cellulitis of left upper limb (principal); T82.848A Pain due to vascular prosthetic devices, implants and grafts, initial encounter; J44.9 Chronic obstructive pulmonary disease, unspecified; N18.6 End stage renal disease; I12.0 Hypertensive chronic kidney disease with stage 5 chronic kidney disease or end stage renal disease; I82.B21 Chronic embolism and thrombosis of right subclavian vein; I48.91 Unspecified atrial fibrillation; K59.09 Other constipation; K21.9 Gastro-esophageal reflux disease without esophagitis; N40.0 Benign prostatic hyperplasia without lower urinary tract symptoms; Z85.71 Personal history of Hodgkin lymphoma; N20.0 Calculus of kidney; Z87.891 Personal history of nicotine dependence; Z92.21 Personal history of antineoplastic chemotherapy; Z99.2 Dependence on renal dialysis

== ENCOUNTER 2018-09-26 18:43 | Inpatient (IN) | payer MEDICAID ==
[2018-09-26 18:43] VITALS: PULSE 140
[2018-09-26 19:07] VITALS: BMI 29.5
--- NOTE | 2018-09-26 19:24 | C.PDOC ---
History Of Present Illness 63 year old male with PMHx of ESRD presents to the ED c/o SOD. Patient goes to dialysis and his last one was on Monday. Patient states feeling no pain. Patient denies fever, chills, nausea, vomit, CP, palpitations, dizziness, heada juliane, weakness, numbness. Chief Complaint (Nursing): Shortness Of Breath History Per: Patient History/Exam Limitations: no limitations Onset/Duration Of Symptoms: Days Current Symptoms Are (Timing): Still Present Initiating Event: Upper Respiratory Illness Quality: "Pain" Current Respiratory Medications: See Home Med List Associated Symptoms: Ankle/Leg Swelling Recent travel outside of the [place]: No Additional History Per: Patient Past Medical History Reviewed: Historical Data, Nursing Documentation, Vital Signs Vital Signs: Last Vital Signs Temp 98.6 F 09/26/18 18:46 Pulse 93 H 09/26/18 18:46 Resp 23 09/26/18 18:46 BP 179/82 H 09/26/18 18:46 Pulse Ox 99 09/26/18 18:46 - Medical History PMH: Anemia, Arthritis (BACK), Asthma, Atrial Fibrillation, CHF, COPD, HTN, Hypercholesterolemia, Hyperlipidemia, Kidney Stones (Rt kidney), Pneumonia, End Stage Renal Disease (on hemodialysis M/W/F), Chronic Kidney Disease Surgical History: Endoscopy - [facility] Procedures (09/24/17) BYPASS L AXILLA ART TO UP ARM VEIN W SYNTH SUB, OPEN (12/23/16) DIALYSIS ARTERIOVENOSTOM (01/22/15) DILATION OF R SUBCLAV VEIN WITH INTRALUM DEV, PERC APPROACH (12/23/16) DILATION OF RIGHT AXILLARY VEIN, PERCUTANEOUS APPROACH (12/23/16) DILATION OF RIGHT BASILIC VEIN, PERCUTANEOUS APPROACH (09/09/16) DILATION OF UPPER VEIN, PERCUTANEOUS APPROACH (02/28/17) EXTIRPATION OF MATTER FROM UPPER VEIN, PERCUTANEOUS APPROACH (12/23/16) FLUOROSCOPY OF DIALYSIS SHUNT/FISTULA USING L OSM CONTRAST (12/23/16) FLUOROSCOPY OF SUP VENA CAVA USING L OSM CONTRAST, GUIDANCE (12/23/16) FLUOROSCOPY OF SUPERIOR VENA CAVA (09/09/16) HEMODIALYSIS (01/30/15) INSERTION OF INFUSION DEV INTO SUP VENA CAVA, PERC APPROACH (12/23/16) PACKED CELL TRANSFUSION (11/05/14) PERFORMANCE OF URINARY FILTRATION, MULTIPLE (02/28/17) PERFORMANCE OF URINARY FILTRATION, SINGLE (02/29/16) TRANSFUSE NONAUT PLATELETS IN PERIPH VEIN, PERC (09/09/16) ULTRASONOGRAPHY OF SUPERIOR VENA CAVA, GUIDANCE (09/09/16) VENOUS CATHETERIZATION FOR RENAL DIALYSIS (11/05/14) Family History: States: Unknown Family Hx - Social History Hx Tobacco Use: No (Quit years ago) Hx Alcohol Use: No Hx Substance Use: No - Immunization History Hx Tetanus Toxoid Vaccination: Yes Hx Influenza Vaccination: Yes Hx Pneumococcal Vaccination: Yes Review Of Systems Constitutional: Negative for: Fever, Chills Cardiovascular: Negative for: Chest Pain Respiratory: Positive for: Shortness of Breath. Negative for: Cough Gastrointestinal: Negative for: Nausea, Vomiting, Abdominal Pain Skin: Negative for: Rash Neurological: Negative for: Weakness, Numbness, Headache, Dizziness Physical Exam - Physical Exam Appears: Non-toxic, No Acute Distress Skin: Normal Color, Warm, Dry Head: Atraumatic, Normacephalic Eye(s): bilateral: Normal Inspection Oral Mucosa: Moist Neck: Normal ROM, Supple Chest: Symmetrical Cardiovascular: Rhythm Regular Respiratory: No Rales, No Rhonchi, No Wheezing Gastrointestinal/Abdominal: Soft, No Tenderness, No Guarding, No Rebound Extremity: Normal ROM, Pedal Edema (3+ bilaterally), Capillary Refill (< 2 seconds) Pulses: Left Dorsalis Pedis: Normal, Right Dorsalis Pedis: Normal Neurological/Psych: Oriented x3, Normal Speech, Normal Cognition Gait: Steady ED Course And Treatment - Laboratory Results Result Diagrams: 09/26/18 19:45 09/26/18 19:45 ECG: Interpreted By Me, Viewed By Me ECG Rhythm: Sinus Rhythm ECG Interpretation: Normal, No Acute Changes Interpretation Of ECG: NSR, normal tracings Rate From EC O2 Sat by Pulse Oximetry: 99 (ON RA) Pulse Ox Interpretation: Normal Medical Decision Making Medical Decision Making: Plan: * EKG * Labs * CXR 02:35- Spoke with Dr. Burks covering for Dr. Alegre regarding patient, states patient will received dialysis tomorrow morning Disposition Discussed With : Broderick Solis Doctor Will See Patient In The: Hospital Counseled Patient/Family Regarding: Diagnosis - Disposition Disposition: HOSPITALIZED Disposition Time: 20:36 Condition: STABLE Forms: [facility] ([place] Islander) - POA Present On Arrival: None - Clinical Impression Clinical Impression: ESRD (end stage renal disease) on dialysis, Dyspnea - Scribe Statement The provider has reviewed the documentation as recorded by the Scribe Michoacano Hummel All medical record entries made by the Scribe were at my direction and personally dictated by me. I have reviewed the chart and agree that the record accurately reflects my personal performance of the history, physical exam, medical decision making, and the department course for this patient. I have also personally directed, reviewed, and agree with the discharge instructions and disposition.
[2018-09-26 19:48] LABS: EOS # 0.3 K/uL (0.0-0.7); EOS % 7.9 % (0.0-4.0); HEMOGLOBIN 11.2 g/dL (12.0-18.0); LYMPH # 0.6 K/uL (1.0-4.3); LYMPH % 14.3 % (20.0-40.0); MEAN CELL VOLUME 94.6 fL (80.0-94.0); MEAN CORPUSCULAR HEMOGLOBIN 30.6 pg (27.0-31.0); MEAN CORPUSCULAR HGB CONC 32.3 g/dL (33.0-37.0); MEAN PLATELET VOLUME 10.2 fL (7.2-11.7); MONO # 0.4 K/uL (0.0-0.8); MONO % 10.6 % (0.0-10.0); NEUT # 2.6 K/uL (1.8-7.0); NEUT % 66.2 % (50.0-75.0); RBC 3.66 Mil/uL (4.40-5.90); RED CELL DISTRIBUTION WIDTH 17.7 % (11.5-14.5); WHITE BLOOD COUNT 3.9 K/uL (4.8-10.8)
[2018-09-26] MEDS ORDERED: DiphenhydrAMINE 50 mg/ml Inj IVP STA (19:48)
[2018-09-26] MEDS ORDERED: DiphenhydrAMINE 50 mg/ml Inj ONE (19:51)
[2018-09-26 20:00] LABS: INR 1.1; PROTHROMBIN TIME 11.8 SECONDS (9.7-12.2)
[2018-09-26 20:14] LABS: TROPONIN I 0.028 ng/mL (0.00-0.120)
[2018-09-26 20:19] LABS: ALBUMIN 4.3 g/dL (3.5-5.0); CALCIUM 9.6 mg/dl (8.6-10.4)
[2018-09-26] MEDS ORDERED: Albuterol-Ipratrop 3 mg / 0.5 (3 ml) UD INH PRN (21:35)
[2018-09-26] MEDS ORDERED: Lidocaine 2% Jelly (30 ml) TOP ONE (21:36)
--- NOTE | 2018-09-26 22:11 | CP.PCM.HP ---
<Tenisha Cabrera - Last Filed: 09/27/18 03:24> History of Present Illness - History of Present Illness History of Present Illness: cc: "I need dialysis" Mr. Du is a 63 year old Congolese male with PMH of ESRD on HD MWF, hypertension, lymphoma s/p chemo, COPD, and BPH comes to [facility] for urgent dialysis. He was in [place] for the last three weeks, and his last HD session was Monday (3 days ago). Upon returning, he was informed by [facility] that he lost his chair since they were not informed of his intended absence. They advised him to go to the hospital, which he did. While in [place], he did have a FOOSH and bruised his R ribs. XR and work up in [place] showed no fracture, however, he is still experiencing mild should pain which is improved with gels and creams. Denies chest pain, abdominal pain, dizziness, numbness, tingling, palpitations. Admits to temporary shortness of breath that resolved prior to coming into the ED. PMH: ESRD on HD MWF, HTN, COPD, BPH, lymphoma s/p chemo Med: non-compliant. metoprolol, tamsulosin All: NKDA PSxHx: kidney stone 1998, L AVF FamHx: HTN and CVA on both sides SocHx: quit smoking 20 years ago (30 pack-year), denies EtOH or illicit drug use . 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 Present on Admission - Present on Admission Any Indicators Present on Admission: No Review of Systems - Constitutional Constitutional: absent: Chills, Fatigue, Fever, Headache, Weakness - EENT Eyes: absent: Blurred Vision, Diplopia Ears: absent: Ear Discharge, Tinnitus Nose/Mouth/Throat: absent: Nasal Congestion, Nasal Discharge, Dysphagia, Odynophagia, Sore Throat - Cardiovascular Cardiovascular: Dyspnea. absent: Chest Pain, Lightheadedness, Palpitations, Syncope - Respiratory Respiratory: Dyspnea. absent: Dyspnea on Exertion - Gastrointestinal Gastrointestinal: absent: Abdominal Pain, Constipation, Diarrhea, Nausea, Vomiting - Genitourinary Genitourinary: absent: Change in Urinary Stream, Difficulty Urinating, Dysuria - Musculoskeletal Musculoskeletal: absent: Arthralgias, Back Pain, Numbness, Stiffness, Tingling - Integumentary Integumentary: absent: Striae, Swelling - Neurological Neurological: absent: Disequilibrium, Dizziness, Numbness, Syncope, Weakness - Psychiatric Psychiatric: absent: Anxiety, Confusion - Hematologic/Lymphatic Hematologic: absent: Easy Bleeding, Easy Bruising Past Patient History - Infectious Disease Hx of Infectious Diseases: None - Past Medical History & Family History Past Medical History?: Yes - Past Social History Smoking Status: Former Smoker Alcohol: None Drugs: Denies Home Situation {Lives}: With Family - CARDIAC Hx Atrial Fibrillation: Yes Hx Congestive Heart Failure: Yes Hx Hypercholesterolemia: Yes Hx Hypertension: Yes - PULMONARY Hx Asthma: Yes Hx Chronic Obstructive Pulmonary Disease (COPD): Yes Hx Pneumonia: Yes - NEUROLOGICAL Hx Neurological Disorder: No - HEENT Hx HEENT Problems: No - RENAL Hx Chronic Kidney Disease: Yes Hx Kidney Stones: Yes (Rt kidney) - ENDOCRINE/METABOLIC Hx Endocrine Disorders: No - HEMATOLOGICAL/ONCOLOGICAL Hx Anemia: Yes - INTEGUMENTARY Hx Dermatological Problems: No - MUSCULOSKELETAL/RHEUMATOLOGICAL Hx Arthritis: Yes (BACK) - GASTROINTESTINAL Hx Gastrointestinal Disorders: Yes Hx Constipation: Yes Other/Comment: chronic constipation - GENITOURINARY/GYNECOLOGICAL Hx Genitourinary Disorders: Yes Hx Prostate Cancer: No (Prostate Sx) Hx Prostate Problems: Yes (hx of turp) - PSYCHIATRIC Hx Substance Use: No - SURGICAL HISTORY Hx Surgeries: Yes (SEE COMMENT) Hx Arteriovenous Shunt: Yes (right upper arm/NONFUNCTIONAL) Hx Vascular Access Device: Yes (BILATERAL ARM SHUNTS) Other/Comment: Prostate sx - ANESTHESIA Hx Anesthesia: Yes Hx Anesthesia Reactions: No Hx Malignant Hyperthermia: No Meds Allergies/Adverse Reactions: Allergies Allergy/AdvReac Type Severity Reaction Status Date / Time No Known Allergies Allergy Verified 09/26/18 19:07 Physical Exam - Constitutional Appears: Well, Non-toxic, No Acute Distress, Chronically Ill - Head Exam Head Exam: ATRAUMATIC, NORMOCEPHALIC - Eye Exam Eye Exam: EOMI, Normal appearance, PERRL Pupil Exam: PERRL - ENT Exam ENT Exam: Mucous Membranes Dry - Respiratory Exam Respiratory Exam: Decreased Breath Sounds. absent: Rales, Rhonchi, Wheezes - Cardiovascular Exam Cardiovascular Exam: REGULAR RHYTHM, +S1, +S2. absent: Systolic Murmur Additional comments: Cath access on L chest - GI/Abdominal Exam GI & Abdominal Exam: Distended, Normal Bowel Sounds, Soft. absent: Guarding, Rebound, Tenderness Additional comments: obese - Extremities Exam Extremities exam: Positive for: normal capillary refill, pedal edema. Negative for: tenderness Additional comments: 1+ pitting edema - Back Exam Back exam: absent: CVA tenderness (L), CVA tenderness (R), paraspinal tenderness - Neurological Exam Neurological exam: Alert, CN II-XII Intact, Oriented x3, Reflexes Normal - Psychiatric Exam Psychiatric exam: Normal Affect, Normal Mood - Skin Skin Exam: Dry, Intact, Normal Color, Warm Results - Vital Signs Recent Vital Signs: Last Vital Signs Temp 98.5 F 09/26/18 21:49 Pulse 90 09/26/18 21:49 Resp 20 09/26/18 21:49 BP 168/90 H 09/26/18 21:49 Pulse Ox 98 09/26/18 21:49 - Labs Result Diagrams: 09/26/18 19:45 09/26/18 19:45 Labs: Laboratory Results - last 24 hr 09/26/18 09/26/18 09/26/18 19:45 19:45 19:45 WBC 3.9 L RBC 3.66 L Hgb 11.2 L Hct 34.6 L MCV 94.6 H D MCH 30.6 MCHC 32.3 L RDW 17.7 H Plt Count 89 L MPV 10.2 Neut % (Auto) 66.2 Lymph % (Auto) 14.3 L Dodge % (Auto) 10.6 H Eos % (Auto) 7.9 H Baso % (Auto) 1.0 Neut # (Auto) 2.6 Lymph # (Auto) 0.6 L Dodge # (Auto) 0.4 Eos # (Auto) 0.3 Baso # (Auto) 0.0 PT 11.8 INR 1.1 APTT 35 H D-Dimer, Quantitative 799 H Sodium 139 Potassium 4.5 Chloride 105 Carbon Dioxide 22 Anion Gap 17 BUN 64 H Creatinine 10.3 H* D Est GFR ( Amer) 6 Est GFR (Non-Af Amer) 5 Random Glucose 95 Calcium 9.6 Total Bilirubin 0.7 AST 21 ALT 16 L D Alkaline Phosphatase 75 Troponin I 0.0280 NT-Pro-B Natriuret Pep 5230 H Total Protein 6.5 Albumin 4.3 Globulin 2.2 Albumin/Globulin Ratio 2.0 - EKG Data EKG Interpreted by: ER Physician EKG shows normal: Sinus rhythm Rate: Normal Assessment & Plan - Assessment and Plan (Free Text) Assessment: 63yo Congolese M PMH ESRD on HD, HTN, BPH, COPD, lymphoma s/p chemo here for HD after losing his chair at [employer]. Plan: ESRD on HD d-dimer 799 BUN/Cr 64/10.3 CXR (09/26): pending read. prelim: negative, cath in place - Nephro consulted: Dr. Alegre - khushboo appreciated - per Dr. Burks, patient will have HD early in the morning Hypertension BNP 5230 - home metoprolol 25mg po daily COPD - home Ventolin and Spiriva -> Duonebs qQ6 prn BPH - home Flomax 0.4mg po daily R shoulder pain Benadryl 50 IVP given in ED - Lidocaine cream prn Hx of Lymphoma at baseline of pancytopenia - monitor AM labs PPx - DVT: Heparin 5000u SC q8 - GI: Protonix 40mg po daily - Diet: Renal HD d/w Dr. Irma Cabrera PGY-1 - Date & Time Date: 09/26/18 Time: 21:00 <Broderick oSlis - Last Filed: 09/27/18 06:37> Results - Vital Signs Recent Vital Signs: Last Vital Signs Temp 97.4 F L 09/27/18 04:25 Pulse 75 09/27/18 04:25 Resp 20 09/27/18 04:25 BP 145/79 09/27/18 04:25 Pulse Ox 98 09/27/18 04:25 - Labs Result Diagrams: 09/26/18 19:45 09/26/18 19:45 Labs: Laboratory Results - last 24 hr 09/26/18 09/26/18 09/26/18 19:45 19:45 19:45 WBC 3.9 L RBC 3.66 L Hgb 11.2 L Hct 34.6 L MCV 94.6 H D MCH 30.6 MCHC 32.3 L RDW 17.7 H Plt Count 89 L MPV 10.2 Neut % (Auto) 66.2 Lymph % (Auto) 14.3 L Dodge % (Auto) 10.6 H Eos % (Auto) 7.9 H Baso % (Auto) 1.0 Neut # (Auto) 2.6 Lymph # (Auto) 0.6 L Dodge # (Auto) 0.4 Eos # (Auto) 0.3 Baso # (Auto) 0.0 PT 11.8 INR 1.1 APTT 35 H D-Dimer, Quantitative 799 H Sodium 139 Potassium 4.5 Chloride 105 Carbon Dioxide 22 Anion Gap 17 BUN 64 H Creatinine 10.3 H* D Est GFR ( Amer) 6 Est GFR (Non-Af Amer) 5 POC Glucose (mg/dL) Random Glucose 95 Calcium 9.6 Total Bilirubin 0.7 AST 21 ALT 16 L D Alkaline Phosphatase 75 Troponin I 0.0280 NT-Pro-B Natriuret Pep 5230 H Total Protein 6.5 Albumin 4.3 Globulin 2.2 Albumin/Globulin Ratio 2.0 09/27/18 06:26 WBC RBC Hgb Hct MCV MCH MCHC RDW Plt Count MPV Neut % (Auto) Lymph % (Auto) Dodge % (Auto) Eos % (Auto) Baso % (Auto) Neut # (Auto) Lymph # (Auto) Dodge # (Auto) Eos # (Auto) Baso # (Auto) PT INR APTT D-Dimer, Quantitative Sodium Potassium Chloride Carbon Dioxide Anion Gap BUN Creatinine Est GFR ( Amer) Est GFR (Non-Af Amer) POC Glucose (mg/dL) 87 Random Glucose Calcium Total Bilirubin AST ALT Alkaline Phosphatase Troponin I NT-Pro-B Natriuret Pep Total Protein Albumin Globulin Albumin/Globulin Ratio Assessment & Plan - Date & Time Date: 09/27/18 (I have seen and examined the patient. I agree with the findings and plan of care as documented by Dr. Cabrera. Patient with ESRD on dialysis. Missed dialysis days ago. Consult to nephro. For dialysis in AM. History of lymphoma. Contact patient's PMD to check patient's baseline labs. Consult heme/onc as necessary. Monitor for acute changes.) Time: 06:36 Attending/Attestation - Attestation I have personally seen and examined this patient.: Yes I have fully participated in the care of the patient.: Yes I have reviewed all pertinent clinical information: Yes
[2018-09-26] MEDS ORDERED: Metoprolol 1 mg/ml Inj IVP ONE (23:38)
[2018-09-27 06:39] LABS: BASO % 0.9 % (0.0-2.0); EOS # 0.3 K/uL (0.0-0.7); EOS % 10.3 % (0.0-4.0); HEMOGLOBIN 10.6 g/dL (12.0-18.0); LYMPH # 0.5 K/uL (1.0-4.3); LYMPH % 16.2 % (20.0-40.0); MEAN CELL VOLUME 94.1 fL (80.0-94.0); MEAN CORPUSCULAR HEMOGLOBIN 30.5 pg (27.0-31.0); MEAN CORPUSCULAR HGB CONC 32.4 g/dL (33.0-37.0); MEAN PLATELET VOLUME 9.9 fL (7.2-11.7); MONO # 0.4 K/uL (0.0-0.8); MONO % 11.3 % (0.0-10.0); NEUT % 61.3 % (50.0-75.0); NRBC % 0.1 % (0.0-2.0); RBC 3.49 Mil/uL (4.40-5.90); RED CELL DISTRIBUTION WIDTH 17.5 % (11.5-14.5); WHITE BLOOD COUNT 3.3 K/uL (4.8-10.8)
--- NOTE | 2018-09-27 07:52 | CP.PCM.PN ---
<Chayo Murphy P - Last Filed: 09/27/18 23:12> Subjective - Date & Time of Evaluation Date of Evaluation: 09/27/18 Time of Evaluation: 11:09 - Subjective Subjective: Progress note for Dr. Hawkins. Patient states he feels much better. Shortness of breath has resolved. Denies chest pain, nausea, vomiting, lethargy, abdominal pain and any other symptoms. After my initial examination of Mr. Du, I was informed that patient had tripped while walking to the bathroom and hit his R temporal scalp against the door. He did not fall down. He did not feel weak or dizzy prior to hitting his head. There was no loss of consciousness. As per nurse, patient insisted that he go to dialysis and did not want to wait for me to evaluate him. When I spoke to patient he states he has a slight bump to the area. Initially there was slight pain which has now resolved. Denies headache, nuasea, vomiting, numbness. Objective - Vital Signs/Intake and Output Vital Signs (last 24 hours): Temp Pulse Resp BP Pulse Ox 97.4 F L 75 20 145/79 98 09/27/18 04:25 09/27/18 04:25 09/27/18 04:25 09/27/18 04:25 09/27/18 04:25 - Medications Medications: Current Medications Albuterol/Ipratropium (Duoneb 3 Mg/0.5 Mg (3 Ml) Ud) 3 ml INH RQ6 PRN PRN Reason: Shortness of Breath Heparin Sodium (Porcine) (Heparin) 5,000 units SC Q8 [facility] Last Admin: 09/27/18 06:27 Dose: 5,000 units Metoprolol Succinate (Toprol Xl) 25 mg PO DAILY [facility] Pantoprazole Sodium (Protonix Ec Tab) 40 mg PO DAILY [facility] Tamsulosin HCl (Flomax) 0.4 mg PO DAILY [facility] - Labs Labs: 09/27/18 06:31 09/26/18 19:45 PT 11.8 SECONDS (9.7-12.2) 09/26/18 19:45 INR 1.1 09/26/18 19:45 APTT 35 SECONDS (21-34) H 09/26/18 19:45 - Constitutional Appears: Non-toxic, No Acute Distress - Head Exam Head Exam: ATRAUMATIC, NORMOCEPHALIC - Eye Exam Eye Exam: EOMI, Normal appearance, PERRL - ENT Exam ENT Exam: Mucous Membranes Moist - Neck Exam Neck Exam: Full ROM, Normal Inspection. absent: Lymphadenopathy - Respiratory Exam Respiratory Exam: Clear to Ausculation Bilateral. absent: Chest Wall Tenderness, Rales, Rhonchi, Wheezes, Respiratory Distress - Cardiovascular Exam Cardiovascular Exam: REGULAR RHYTHM, +S1, +S2 - GI/Abdominal Exam GI & Abdominal Exam: Soft. absent: Distended, Firm, Guarding, Tenderness - Extremities Exam Extremities Exam: Full ROM, Normal Capillary Refill. absent: Tenderness Additional comments: Cool toes, no cyanosis. + pitting edema to LUE (reportedly chronic for over a year since). AVF L upper arm and AV graft L lower arm, both without thrill but + bruit - Neurological Exam Neurological Exam: Alert, Awake, CN II-XII Intact, Oriented x3 Neuro motor strength exam: Left Upper Extremity: 5, Right Upper Extremity: 5, Left Lower Extremity: 5, Right Lower Extremity: 5 - Psychiatric Exam Psychiatric exam: Normal Affect, Normal Mood - Skin Skin Exam: Dry, Intact, Normal Color, Warm - Additional Findings Additional findings: Following head trauma: Contusion to R judaism, non-tender to palpation, no open wound, no bleeding. Neuro: AAOx3, CN 2-12 intact. Speech is fluent. No nystagmus. No dysmetria. 5/5 muscle strength in all extremities, sensation intact globally. Assessment and Plan - Assessment and Plan (Free Text) Plan: 63yo [place] M PMH ESRD on HD, HTN, BPH, COPD, lymphoma s/p chemo here for HD after losing his chair at [employer]. ESRD on HD Acute on chronic Patient missed 2 dialysis sessions this week d-dimer on admisison 799 BUN/Cr on admission 64/10.3 CXR (09/26): Fibro granulomatous changes mid and right upper lung zone. Probably stable with 12/2016. Dialysis catheter in place - Nephro consulted: Dr. Alegre - khushboo appreciated L AVF dysfunction/LUE edema chronic Swelling since surgery with Dr. Huber at [facility] over one year ago -Dr. Altman, vascular surgery, consulted Will plan for fistulagram in [place] 09/28 Head Trauma acute 4/18/19 Patient lost his balance and bumped his head against a door No neurological findings CT head ordered- patient refused Hypertension Chronic BNP on admission 5230 - home metoprolol 25mg po daily COPD chronic - home Ventolin and Spiriva -> Duonebs qQ6 prn BPH Chronic - home Flomax 0.4mg po daily R shoulder pain Chronic Benadryl 50 IVP given in ED - Lidocaine cream prn Hx of Lymphoma chronic at baseline of pancytopenia - monitor AM labs PPx - DVT: Heparin 5000u SC q8 - GI: Protonix 40mg po daily - Diet: Renal HD Dispo: Fistulogram with Dr. Altman tomorrow. Patient will need out patient dialysis placement prior to discharge. <Gaston Hawkins - Last Filed: 09/30/18 17:11> Objective - Vital Signs/Intake and Output Vital Signs (last 24 hours): Temp Pulse Resp BP Pulse Ox 97.5 F L 72 20 165/89 H 100 09/30/18 17:06 09/30/18 17:06 09/30/18 17:06 09/30/18 17:06 09/30/18 17:06 - Medications Medications: Current Medications Albuterol/Ipratropium (Duoneb 3 Mg/0.5 Mg (3 Ml) Ud) 3 ml INH RQ6 PRN PRN Reason: Shortness of Breath Calcium Acetate (Phoslo) 1,334 mg PO TID [facility] Last Admin: 09/30/18 13:41 Dose: 1,334 mg Diphenhydramine HCl (Benadryl) 25 mg PO Q12H PRN PRN Reason: Itching / Pruritus Docusate Sodium (Colace) 100 mg PO TID [facility] Last Admin: 09/30/18 13:38 Dose: 100 mg Ferric Sodium Gluconate Complex (Ferrlecit) 125 mg IVPB DAILY [facility] Stop: 10/03/18 10:01 Last Admin: 09/30/18 09:11 Dose: 125 mg Heparin Sodium (Porcine) (Heparin) 5,000 units SC Q8 [facility] Last Admin: 09/30/18 13:38 Dose: 5,000 units Ipratropium [place] (Atrovent) 0.5 mg IH RQ6 [facility] Last Admin: 09/30/18 14:47 Dose: 0.5 mg Metoprolol Succinate (Toprol Xl) 50 mg PO DAILY [facility] Last Admin: 09/30/18 09:11 Dose: 50 mg Pantoprazole Sodium (Protonix Ec Tab) 40 mg PO DAILY [facility] Last Admin: 09/30/18 09:11 Dose: 40 mg Tamsulosin HCl (Flomax) 0.4 mg PO DAILY [facility] Last Admin: 09/30/18 09:11 Dose: 0.4 mg - Labs Labs: 09/30/18 07:18 09/30/18 07:18 PT 11.8 SECONDS (9.7-12.2) 09/26/18 19:45 INR 1.1 09/26/18 19:45 APTT 35 SECONDS (21-34) H 09/26/18 19:45 Attending/Attestation - Attestation I have personally seen and examined this patient.: Yes I have fully participated in the care of the patient.: Yes I have reviewed all pertinent clinical information, including history, physical exam and plan: Yes Notes (Text): 09/30/18 17:11 This is a late entry. Care of this patient was discussed in detail with resident Dr. Murphy. Gaston Hawkins D.O.
[2018-09-27 08:08] LABS: ALB/GLOB RATIO 1.9 (1.0-2.1); ALBUMIN 3.8 g/dL (3.5-5.0); CALCIUM 9.2 mg/dl (8.6-10.4)
--- NOTE | 2018-09-27 09:06 | CP.PCM.CON ---
History of Present Illness - History of Present Illness History of Present Illness: Mr. Du is a 63 year old English male with PMH of ESRD on HD MWF, hypertension, lymphoma s/p chemo, COPD, and BPH comes to [facility] for urgent dialysis. He was in [place] for the last three weeks, and his last HD session was Monday (3 days ago). Upon returning, he was informed by [facility] that he lost his chair since they were not informed of his intended absence. They advised him to go to the hospital, which he did. While in [place], he did have a FOOSH and bruised his R ribs. XR and work up in [place] showed no fracture, however, he is still experiencing mild should pain which is improved with gels and creams. Denies chest pain, abdominal pain, dizziness, numbness, tingling, palpitations. Admits to temporary shortness of breath that resolved prior to coming into the ED. Has had dialysis via permcath; AV access failed. PMH: ESRD on HD MWF, HTN, COPD, BPH, lymphoma s/p chemo Med: non-compliant. metoprolol, tamsulosin All: NKDA PSxHx: kidney stone 1998, L AVF FamHx: HTN and CVA on both sides; CKD in brother SocHx: quit smoking 20 years ago (30 pack-year), denies EtOH or illicit drug use. 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 Review of Systems - Constitutional Constitutional: Weight Gain, Weakness - EENT Eyes: absent: As Per HPI, Blind Spots, Blurred Vision, Change in Vision, Decreased Night Vision, Diplopia, Discharge, Dry Eye, Exophthalmos, Floaters, Irritation, Itchy Eyes, Loss of Peripheral Vision, Pain, Photophobia, Requires Corrective Lenses, Sees Flashes, Spots in Vision, Tunnel Vision, Other Visual Disturbances, Loss of Vision, Other Ears: absent: As Per HPI, Decreased Hearing, Ear Discharge, Ear Pain, Tinnitus, Abnormal Hearing, Disequilibrium, Dizziness, Other Nose/Mouth/Throat: absent: As Per HPI, Epistaxis, Nasal Congestion, Nasal Discharge, Nasal Obstruction, Nasal Trauma, Nose Pain, Post Nasal Drip, Sinus Pain, Sinus Pressure, Bleeding Gums, Change in Voice, Dental Pain, Dry Mouth, Dysphagia, Halitosis, Hoarsness, Lip Swelling, Mouth Lesions, Mouth Pain, Odynophagia, Sore Throat, Throat Swelling, Tongue Swelling, Facial Pain, Neck Pain, Neck Mass, Other - Cardiovascular Cardiovascular: Pedal Edema - Gastrointestinal Gastrointestinal: absent: As Per HPI, Abdominal Pain, Belching, Bloating, Change in Bowel Habits, Change in Stool Character, Coffee Ground Emesis, Constipation, Cramping, Diarrhea, Dyspepsia, Dysphagia, Early Satiety, Excessive Flatus, Fecal Incontinence, Heartburn, Hematemesis, Hematochezia, Loose Stools, Melena, Nausea, Odynophagia, Temesmus, Vomiting, Other - Genitourinary Genitourinary: As Per HPI - Musculoskeletal Musculoskeletal: Muscle Weakness, Myalgias Past Patient History - Infectious Disease Hx of Infectious Diseases: None - Past Medical History & Family History Past Medical History?: Yes Past Family History: Reviewed and not pertinent - Past Social History Smoking Status: Former Smoker Chewing Tobacco Use: No Cigar Use: No Alcohol: None Drugs: Denies Home Situation {Lives}: With Family - CARDIAC Hx Atrial Fibrillation: Yes Hx Congestive Heart Failure: Yes Hx Hypercholesterolemia: Yes Hx Hypertension: Yes - PULMONARY Hx Asthma: Yes Hx Chronic Obstructive Pulmonary Disease (COPD): Yes Hx Pneumonia: Yes - NEUROLOGICAL Hx Neurological Disorder: No - HEENT Hx HEENT Problems: No - RENAL Hx Chronic Kidney Disease: Yes Hx Kidney Stones: Yes (Rt kidney) - ENDOCRINE/METABOLIC Hx Endocrine Disorders: No - HEMATOLOGICAL/ONCOLOGICAL Hx Anemia: Yes - INTEGUMENTARY Hx Dermatological Problems: No - MUSCULOSKELETAL/RHEUMATOLOGICAL Hx Arthritis: Yes (BACK) - GASTROINTESTINAL Hx Gastrointestinal Disorders: Yes Hx Constipation: Yes Other/Comment: chronic constipation - GENITOURINARY/GYNECOLOGICAL Hx Genitourinary Disorders: Yes Hx Prostate Cancer: No (Prostate Sx) Hx Prostate Problems: Yes (hx of turp) - PSYCHIATRIC Hx Substance Use: No - SURGICAL HISTORY Hx Surgeries: Yes (SEE COMMENT) Hx Arteriovenous Shunt: Yes (right upper arm/NONFUNCTIONAL) Hx Vascular Access Device: Yes (BILATERAL ARM SHUNTS) Other/Comment: Prostate sx - ANESTHESIA Hx Anesthesia: Yes Hx Anesthesia Reactions: No Hx Malignant Hyperthermia: No Meds Allergies/Adverse Reactions: Allergies Allergy/AdvReac Type Severity Reaction Status Date / Time No Known Allergies Allergy Verified 09/26/18 19:07 - Medications Medications: Current Medications Albuterol/Ipratropium (Duoneb 3 Mg/0.5 Mg (3 Ml) Ud) 3 ml INH RQ6 PRN PRN Reason: Shortness of Breath Docusate Sodium (Colace) 100 mg PO TID [facility] Heparin Sodium (Porcine) (Heparin) 5,000 units SC Q8 [facility] Last Admin: 09/27/18 06:27 Dose: 5,000 units Ipratropium [place] (Atrovent) 0.5 mg IH RQ6 [facility] Metoprolol Succinate (Toprol Xl) 25 mg PO DAILY [facility] Pantoprazole Sodium (Protonix Ec Tab) 40 mg PO DAILY [facility] Tamsulosin HCl (Flomax) 0.4 mg PO DAILY [facility] Physical Exam - Constitutional Appears: Non-toxic, Chronically Ill - Head Exam Head Exam: ATRAUMATIC, NORMAL INSPECTION - Eye Exam Eye Exam: EOMI, Normal appearance - Neck Exam Neck exam: Positive for: Normal Inspection. Negative for: Tenderness - Respiratory Exam Respiratory Exam: Clear to Auscultation Bilateral, NORMAL BREATHING PATTERN - Cardiovascular Exam Cardiovascular Exam: REGULAR RHYTHM, +S1 - GI/Abdominal Exam GI & Abdominal Exam: Soft. absent: Tenderness - Extremities Exam Extremities exam: Positive for: pedal edema. Negative for: tenderness - Neurological Exam Neurological exam: CN II-XII Intact, Oriented x3 - Skin Skin Exam: Dry, Warm Results - Vital Signs Recent Vital Signs: Last Vital Signs Temp 97.6 F 09/27/18 08:00 Pulse 76 09/27/18 08:00 Resp 20 09/27/18 08:00 BP 152/83 H 09/27/18 08:00 Pulse Ox 98 09/27/18 08:00 - Labs Result Diagrams: 09/27/18 06:31 09/27/18 06:31 Labs: Laboratory Results - last 24 hr 09/26/18 09/26/18 09/26/18 19:45 19:45 19:45 WBC 3.9 L RBC 3.66 L Hgb 11.2 L Hct 34.6 L MCV 94.6 H D MCH 30.6 MCHC 32.3 L RDW 17.7 H Plt Count 89 L MPV 10.2 Neut % (Auto) 66.2 Lymph % (Auto) 14.3 L [place] % (Auto) 10.6 H Eos % (Auto) 7.9 H Baso % (Auto) 1.0 Neut # (Auto) 2.6 Lymph # (Auto) 0.6 L [place] # (Auto) 0.4 Eos # (Auto) 0.3 Baso # (Auto) 0.0 PT 11.8 INR 1.1 APTT 35 H D-Dimer, Quantitative 799 H Sodium 139 Potassium 4.5 Chloride 105 Carbon Dioxide 22 Anion Gap 17 BUN 64 H Creatinine 10.3 H* D Est GFR ( Amer) 6 Est GFR (Non-Af Amer) 5 POC Glucose (mg/dL) Random Glucose 95 Calcium 9.6 Total Bilirubin 0.7 AST 21 ALT 16 L D Alkaline Phosphatase 75 Troponin I 0.0280 NT-Pro-B Natriuret Pep 5230 H Total Protein 6.5 Albumin 4.3 Globulin 2.2 Albumin/Globulin Ratio 2.0 09/27/18 09/27/18 09/27/18 06:26 06:31 06:31 WBC 3.3 L RBC 3.49 L Hgb 10.6 L Hct 32.9 L MCV 94.1 H MCH 30.5 MCHC 32.4 L RDW 17.5 H Plt Count 79 L MPV 9.9 Neut % (Auto) 61.3 Lymph % (Auto) 16.2 L [place] % (Auto) 11.3 H Eos % (Auto) 10.3 H Baso % (Auto) 0.9 Neut # (Auto) 2.0 Lymph # (Auto) 0.5 L [place] # (Auto) 0.4 Eos # (Auto) 0.3 Baso # (Auto) 0.0 PT INR APTT D-Dimer, Quantitative Sodium 139 Potassium 4.7 Chloride 107 Carbon Dioxide 19 L Anion Gap 18 BUN 66 H Creatinine 10.9 H* Est GFR ( Amer) 6 Est GFR (Non-Af Amer) 5 POC Glucose (mg/dL) 87 Random Glucose 89 Calcium 9.2 Total Bilirubin 0.7 AST 19 ALT 21 D Alkaline Phosphatase 68 Troponin I NT-Pro-B Natriuret Pep Total Protein 5.8 L Albumin 3.8 Globulin 2.0 L Albumin/Globulin Ratio 1.9 Assessment & Plan (1) Failure of surgically constructed arteriovenous fistula Status: Acute (2) Essential hypertension Status: Acute (3) Secondary hyperparathyroidism Status: Acute (4) COPD (chronic obstructive pulmonary disease) with chronic bronchitis Status: Chronic (5) End-stage renal disease Status: Chronic - Assessment and Plan (Free Text) Plan: dialysis today surgical eval AV access failure will need new dialysis placement
--- NOTE | 2018-09-27 09:52 | RAD ---
Date of service: 09/26/2018 HISTORY: SOB COMPARISON: 05/14/2017 and 12/23/2016 chest x-rays TECHNIQUE: Chest PA and lateral views FINDINGS: LUNGS: The prior fibrotic changes in the right mid to upper lung zone are again noted. On the current study there is increased density and increase conspicuity of a sub cm nodule in this right upper lobe and a peripheral area of prior fibrotic changes. Note is made of a CT chest with contrast study dated 12/28/2016 referencing right upper and right middle lobe fibrotic granulomatous changes this probably relates to this current finding it is increased in conspicuity on the current chest x-ray. This current nodular appearance is believed stable with the frontal view from 12/23/2016. No dense consolidation seen. PLEURA: No significant pleural effusion identified. No pneumothorax apparent. CARDIOVASCULAR: No aortic atherosclerotic calcification present. Minimal cardiomegaly suspect. No significant appearing pulmonary venous congestion. Interval dialysis catheter placed Right subclavian vascular stents noted and right axillary stents are partially visualized. OSSEOUS STRUCTURES: Thoracic spondylosis. Bilateral shoulder arthrosis. Well corticated ossifications border the left scapular coronoid process-loose bodies here and/or unfused ossification centers are some considerations. This appearance is unchanged. VISUALIZED UPPER ABDOMEN: Normal. OTHER FINDINGS: On the lateral view there is some increased density in the retrocardiac fat region-this could represent tortuosity of the thoracic aorta and-however other retrocardiac pathology not excluded-for example hiatal hernia. However conveyed on prior studies. This appearance however is stable with the lateral view from 12/23/2016 IMPRESSION: Interval insertion dialysis catheter. No pneumothorax seen. Distal aspects in right atrium. Vascular stents as before. Fibro granulomatous changes mid and right upper lung zone. Probably stable with 12/23/2016. Other findings as above.
[2018-09-27] MEDS ORDERED: Metoprolol Succinate 25 mg XL Tab PO SCH (10:00)
[2018-09-27] MEDS ORDERED: METOPROLOL PO SCH (10:00)
[2018-09-27] MEDS ORDERED: Tiotropium 18 mcg Cap For Inhalation INH SCH (10:00)
[2018-09-27] MEDS: Pantoprazole 40 mg EC Tab PO SCH (10:30)
[2018-09-27] MEDS: Metoprolol Succinate 50 mg XL Tab PO SCH ×2 (10:30→17:50)
[2018-09-27 12:18] LABS: HEPATITIS B SURFACE AG Negative (NEGATIVE)
[2018-09-27 12:24] LABS: HEPATITIS B CORE AB NEGATIVE (NEGATIVE)
[2018-09-27 12:35] LABS: HEPATITIS C ANTIBODY NEGATIVE (NEGATIVE)
--- NOTE | 2018-09-27 13:13 | CP.PCM.CON ---
History of Present Illness - History of Present Illness History of Present Illness: Vascular Surgery Consult for Dr. Altman Reason for consult: assess HD access 63 M with PMH that includes ESRD on HD MWF, hypertension, lymphoma s/p chemo, COPD, and BPH presents to [facility] for urgent dialysis. He returned from [place] r ecently. He was there for the last three weeks. Patient last received HD session on Friday 09/22. Upon returning, [facility] was [facility] that he [facility] since they were not informed of his intended absence. They advised him to go to the hospital immediately for HD. Patient was initially admitted on 09/25. Vascular surgery was consulted to assess HD access. He has been receiving dialysis through his left sided permacath. Denies fever/chills, chest pain, abdominal pain, n/v, diarrhea, constipation, dizziness, numbness/tingling, palpitations or urinary symptoms. PMH: ESRD on HD MWF, HTN, COPD, BPH, lymphoma s/p chemo Med: metoprolol, tamsulosin All: NKDA PSH: kidney stone 1998, L AVF, Permacath FH: HTN, CVA Social: quit smoking 20 years ago (30 pack year history), denies EtOH or illicit drug use. 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 Review of Systems - Review of Systems All systems: reviewed and no additional remarkable complaints except (as per HPI) Past Patient History - Infectious Disease Hx of Infectious Diseases: None - Past Medical History & Family History Past Medical History?: Yes Past Family History: Reviewed and not pertinent - Past Social History Smoking Status: Former Smoker Chewing Tobacco Use: No Cigar Use: No Alcohol: None Drugs: Denies Home Situation {Lives}: With Family - CARDIAC Hx Atrial Fibrillation: Yes Hx Congestive Heart Failure: Yes Hx Hypercholesterolemia: Yes Hx Hypertension: Yes - PULMONARY Hx Asthma: Yes Hx Chronic Obstructive Pulmonary Disease (COPD): Yes Hx Pneumonia: Yes - NEUROLOGICAL Hx Neurological Disorder: No - HEENT Hx HEENT Problems: No - RENAL Hx Chronic Kidney Disease: Yes Hx Kidney Stones: Yes (Rt kidney) - ENDOCRINE/METABOLIC Hx Endocrine Disorders: No - HEMATOLOGICAL/ONCOLOGICAL Hx Anemia: Yes - INTEGUMENTARY Hx Dermatological Problems: No - MUSCULOSKELETAL/RHEUMATOLOGICAL Hx Arthritis: Yes (BACK) - GASTROINTESTINAL Hx Gastrointestinal Disorders: Yes Hx Constipation: Yes Other/Comment: chronic constipation - GENITOURINARY/GYNECOLOGICAL Hx Genitourinary Disorders: Yes Hx Prostate Cancer: No (Prostate Sx) Hx Prostate Problems: Yes (hx of turp) - PSYCHIATRIC Hx Substance Use: No - SURGICAL HISTORY Hx Surgeries: Yes (SEE COMMENT) Hx Arteriovenous Shunt: Yes (right upper arm/NONFUNCTIONAL) Hx Vascular Access Device: Yes (BILATERAL ARM SHUNTS) Other/Comment: Prostate sx - ANESTHESIA Hx Anesthesia: Yes Hx Anesthesia Reactions: No Hx Malignant Hyperthermia: No Meds Allergies/Adverse Reactions: Allergies Allergy/AdvReac Type Severity Reaction Status Date / Time No Known Allergies Allergy Verified 09/26/18 19:07 - Medications Medications: Current Medications Albuterol/Ipratropium (Duoneb 3 Mg/0.5 Mg (3 Ml) Ud) 3 ml INH RQ6 PRN PRN Reason: Shortness of Breath Docusate Sodium (Colace) 100 mg PO TID [facility] Heparin Sodium (Porcine) (Heparin) 5,000 units SC Q8 [facility] Last Admin: 09/27/18 06:27 Dose: 5,000 units Ipratropium [place] (Atrovent) 0.5 mg IH RQ6 [facility] Metoprolol Succinate (Toprol Xl) 50 mg PO DAILY [facility] Pantoprazole Sodium (Protonix Ec Tab) 40 mg PO DAILY [facility] Tamsulosin HCl (Flomax) 0.4 mg PO DAILY [facility] Physical Exam - Additional Findings Additional findings: - Constitutional Appears: No Acute Distress - Head Exam Head Exam: ATRAUMATIC, NORMOCEPHALIC - Eye Exam Eye Exam: EOMI Pupil Exam: PERRL - ENT Exam ENT Exam: Mucous Membranes Dry - Respiratory Exam Respiratory Exam: NORMAL BREATHING PATTERN. absent: Respiratory distress. - Cardiovascular Exam Cardiovascular Exam: REGULAR RHYTHM, +S1, +S2 Additional comments: Left permacath - GI/Abdominal Exam GI & Abdominal Exam: Distended, Normal Bowel Sounds, Soft. absent: Guarding, Rebound, Tenderness - Extremities Exam Extremities exam: Positive for: normal capillary refill, pedal edema. Negative for: tenderness Left AVF without palpable thrill and weak audible bruit - Back Exam Back exam: absent: CVA tenderness (L), CVA tenderness (R), paraspinal tenderness - Neurological Exam Neurological exam: Alert, CN II-XII Intact, Oriented x3, Reflexes Normal - Psychiatric Exam Psychiatric exam: Normal Affect, Normal Mood - Skin Skin Exam: Dry, Intact, Normal Color, Warm Results - Vital Signs Recent Vital Signs: Last Vital Signs Temp 97.4 F L 09/27/18 10:25 Pulse 76 09/27/18 10:53 Resp 18 09/27/18 10:53 BP 158/96 H 09/27/18 12:55 Pulse Ox 100 09/27/18 10:25 - Labs Result Diagrams: 09/27/18 06:31 09/27/18 06:31 Labs: Laboratory Results - last 24 hr 09/26/18 09/26/18 09/26/18 19:45 19:45 19:45 WBC 3.9 L RBC 3.66 L Hgb 11.2 L Hct 34.6 L MCV 94.6 H D MCH 30.6 MCHC 32.3 L RDW 17.7 H Plt Count 89 L MPV 10.2 Neut % (Auto) 66.2 Lymph % (Auto) 14.3 L [place] % (Auto) 10.6 H Eos % (Auto) 7.9 H Baso % (Auto) 1.0 Neut # (Auto) 2.6 Lymph # (Auto) 0.6 L [place] # (Auto) 0.4 Eos # (Auto) 0.3 Baso # (Auto) 0.0 PT 11.8 INR 1.1 APTT 35 H D-Dimer, Quantitative 799 H Sodium 139 Potassium 4.5 Chloride 105 Carbon Dioxide 22 Anion Gap 17 BUN 64 H Creatinine 10.3 H* D Est GFR ( Amer) 6 Est GFR (Non-Af Amer) 5 POC Glucose (mg/dL) Random Glucose 95 Calcium 9.6 Phosphorus % Saturation Ferritin Total Bilirubin 0.7 AST 21 ALT 16 L D Alkaline Phosphatase 75 Troponin I 0.0280 NT-Pro-B Natriuret Pep 5230 H Total Protein 6.5 Albumin 4.3 Globulin 2.2 Albumin/Globulin Ratio 2.0 Hep Bs Antigen Hep Bs Antibody Hep B Core IgM Ab Hepatitis C Antibody 09/27/18 09/27/18 09/27/18 06:26 06:31 06:31 WBC 3.3 L RBC 3.49 L Hgb 10.6 L Hct 32.9 L MCV 94.1 H MCH 30.5 MCHC 32.4 L RDW 17.5 H Plt Count 79 L MPV 9.9 Neut % (Auto) 61.3 Lymph % (Auto) 16.2 L [place] % (Auto) 11.3 H Eos % (Auto) 10.3 H Baso % (Auto) 0.9 Neut # (Auto) 2.0 Lymph # (Auto) 0.5 L [place] # (Auto) 0.4 Eos # (Auto) 0.3 Baso # (Auto) 0.0 PT INR APTT D-Dimer, Quantitative Sodium 139 Potassium 4.7 Chloride 107 Carbon Dioxide 19 L Anion Gap 18 BUN 66 H Creatinine 10.9 H* Est GFR ( Amer) 6 Est GFR (Non-Af Amer) 5 POC Glucose (mg/dL) 87 Random Glucose 89 Calcium 9.2 Phosphorus % Saturation Ferritin Total Bilirubin 0.7 AST 19 ALT 21 D Alkaline Phosphatase 68 Troponin I NT-Pro-B Natriuret Pep Total Protein 5.8 L Albumin 3.8 Globulin 2.0 L Albumin/Globulin Ratio 1.9 Hep Bs Antigen Hep Bs Antibody Hep B Core IgM Ab Hepatitis C Antibody 09/27/18 09/27/18 09/27/18 10:58 10:58 10:58 WBC RBC Hgb Hct MCV MCH MCHC RDW Plt Count MPV Neut % (Auto) Lymph % (Auto) [place] % (Auto) Eos % (Auto) Baso % (Auto) Neut # (Auto) Lymph # (Auto) [place] # (Auto) Eos # (Auto) Baso # (Auto) PT INR APTT D-Dimer, Quantitative Sodium Potassium Chloride Carbon Dioxide Anion Gap BUN Creatinine Est GFR ( Amer) Est GFR (Non-Af Amer) POC Glucose (mg/dL) Random Glucose Calcium Phosphorus 6.9 H % Saturation 13 L Ferritin 756.0 Total Bilirubin AST ALT Alkaline Phosphatase Troponin I NT-Pro-B Natriuret Pep Total Protein Albumin Globulin Albumin/Globulin Ratio Hep Bs Antigen Negative Hep Bs Antibody Negative Hep B Core IgM Ab Negative Hepatitis C Antibody Negative Assessment & Plan - Assessment and Plan (Free Text) Assessment: 63 M 63 M with PMH that includes ESRD on HD MWF, hypertension, lymphoma s/p chemo, COPD, and BPH presents with malfunctioning AVF Plan: -Continue HD MWF via permacath -Will plan for fistulagram in [place] 09/28 -f/u Nephrology recs -Medical management as per primary -Discussed with Dr. Agapito Monteiro PGY2 - Date & Time Date: 09/27/18 Time: 13:19
--- NOTE | 2018-09-27 17:48 | CT ---
Date of service: 09/27/2018 PROCEDURE: CT HEAD WITHOUT CONTRAST. HISTORY: R sided head trauma COMPARISON: None available. TECHNIQUE: Axial computed tomography images were obtained through the head/brain without intravenous contrast. Radiation dose: Total exam DLP = 1098.39 mGy-cm. This CT exam was performed using one or more of the following dose reduction techniques: Automated exposure control, adjustment of the mA and/or kV according to patient size, and/or use of iterative reconstruction technique. FINDINGS: HEMORRHAGE: No intracranial hemorrhage. BRAIN: Good corticomedullary differentiation is seen. Proportional, diffuse expansion of the ventriculosulcal and cisternal spaces is appreciated with white matter lucency compatible with diffuse cerebral atrophy and chronic microangiopathy. A small chronic lacune is seen at the left caudate lobe as well as at the lateral left thalamus. No suspicious extra-axial fluid collection is identified and the midline brain anatomy appears grossly nonfocal as imaged. There is no mass effect throughout. VENTRICLES: Unremarkable. No hydrocephalus. CALVARIUM: Unremarkable. PARANASAL SINUSES: Unremarkable as visualized. No significant inflammatory changes. MASTOID AIR CELLS: Unremarkable as visualized. No inflammatory changes. OTHER FINDINGS: None. IMPRESSION: No acute intracranial findings by standard CT criteria including cortical edema. No intracranial hemorrhage either. Age-appropriate age related neuro degenerative findings appear mild with chronic lacunes identified at the left basal ganglia and left thalamus.
[2018-09-27] MEDS: Ipratropium 0.02% Inhal Soln (0.5 mg/2.5 ml) UD IH SCH (20:11)
[2018-09-27] MEDS ORDERED: DiphenhydrAMINE 50 mg/ml Inj IVP STA (20:55)
--- NOTE | 2018-09-27 23:52 | CARD ---
APPROVED REPORT Date of service: 09/26/2018 EKG Measurement Heart [id number] <Conclusion> Normal sinus rhythm Normal ECG
[2018-09-28] MEDS: Ipratropium 0.02% Inhal Soln (0.5 mg/2.5 ml) UD IH SCH ×4 (03:00→20:42)
--- NOTE | 2018-09-28 06:57 | CP.PCM.PN ---
<Chayo Murphy P - Last Filed: 09/28/18 14:55> Subjective - Date & Time of Evaluation Date of Evaluation: 09/28/18 Time of Evaluation: 06:55 - Subjective Subjective: Progress note for Dr. Hawkins. Patient seen and examined at bedside. States he is tired, otherwise no complaints. He is going for fistulogram today. Patient denies headache, dizziness, blurry vision, chest pain, SOB, nausea, vomiting, abdominal pain. Objective - Vital Signs/Intake and Output Vital Signs (last 24 hours): Temp Pulse Resp BP Pulse Ox 98.6 F 74 20 128/71 96 09/28/18 04:00 09/28/18 04:00 09/28/18 04:00 09/28/18 04:00 09/28/18 04:00 - Medications Medications: Current Medications Albuterol/Ipratropium (Duoneb 3 Mg/0.5 Mg (3 Ml) Ud) 3 ml INH RQ6 PRN PRN Reason: Shortness of Breath Docusate Sodium (Colace) 100 mg PO TID [facility] Last Admin: 09/27/18 17:50 Dose: 100 mg Heparin Sodium (Porcine) (Heparin) 5,000 units SC Q8 [facility] Last Admin: 09/27/18 21:07 Dose: 5,000 units Ipratropium [place] (Atrovent) 0.5 mg IH RQ6 [facility] Last Admin: 09/28/18 03:00 Dose: Not Given Metoprolol Succinate (Toprol Xl) 50 mg PO DAILY [facility] Last Admin: 09/27/18 17:50 Dose: 50 mg Pantoprazole Sodium (Protonix Ec Tab) 40 mg PO DAILY [facility] Last Admin: 09/27/18 10:30 Dose: Not Given Tamsulosin HCl (Flomax) 0.4 mg PO DAILY [facility] Last Admin: 09/27/18 14:57 Dose: 0.4 mg - Labs Labs: 09/27/18 06:31 09/27/18 06:31 PT 11.8 SECONDS (9.7-12.2) 09/26/18 19:45 INR 1.1 09/26/18 19:45 APTT 35 SECONDS (21-34) H 09/26/18 19:45 - Additional Findings Additional findings: - Constitutional Appears: Non-toxic, No Acute Distress - Head Exam Head Exam: Contusion R muslim, non-tender to palpation, NORMOCEPHALIC - Eye Exam Eye Exam: EOMI, Normal appearance, PERRL - ENT Exam ENT Exam: Mucous Membranes Moist - Neck Exam Neck Exam: Full ROM, Normal Inspection. absent: Lymphadenopathy - Respiratory Exam Respiratory Exam: Clear to Ausculation Bilateral. absent: Chest Wall Tenderness, Rales, Rhonchi, Wheezes, Respiratory Distress - Cardiovascular Exam Cardiovascular Exam: REGULAR RHYTHM, +S1, +S2 - GI/Abdominal Exam GI & Abdominal Exam: Soft. absent: Distended, Firm, Guarding, Tenderness - Extremities Exam Extremities Exam: Full ROM, Normal Capillary Refill. absent: Tenderness Additional comments: Cool toes, no cyanosis. + pitting edema to LUE (reportedly chronic for over a year). AVF L upper arm and AV graft L lower arm, both without thrill but + bruit - Neurological Exam Neurological Exam: Alert, Awake, CN II-XII Intact, Oriented x3 Neuro motor strength exam: Left Upper Extremity: 5, Right Upper Extremity: 5, Le ft Lower Extremity: 5, Right Lower Extremity: 5 - Psychiatric Exam Psychiatric exam: Normal Affect, Normal Mood - Skin Skin Exam: Dry, Intact, Normal Color, Warm Assessment and Plan - Assessment and Plan (Free Text) Plan: 63yo [place]ian M PMH ESRD on HD, HTN, BPH, COPD, lymphoma s/p chemo here for HD after losing his chair at [facility]. ESRD on HD Acute on chronic Patient missed 2 dialysis sessions this week d-dimer on admisison 799 BUN/Cr on admission 64/10.3 CXR (09/26): Fibro granulomatous changes mid and right upper lung zone. Probably stable with 12/2016. Dialysis catheter in place - Nephro consulted: Dr. Alegre - khushboo appreciated L AVF dysfunction/LUE edema chronic Swelling since surgery with Dr. Huber at [facility] over one year ago -Dr. Altman, vascular surgery, consulted Will plan for fistulagram in [place] 09/28 Head Trauma, improved acute 09/27/18 Patient lost his balance and bumped his head against a door No neurological findings CT head- Negative, see full report Hypertension Chronic BNP on admission 5230 - home metoprolol 25mg po daily COPD chronic - home Ventolin and Spiriva -> Duonebs qQ6 prn BPH Chronic - home Flomax 0.4mg po daily R shoulder pain Chronic Benadryl 50 IVP given in ED - Lidocaine cream prn Hx of Lymphoma chronic at baseline of pancytopenia - monitor AM labs PPx - DVT: Heparin 5000u SC q8 - GI: Protonix 40mg po daily - Diet: Renal HD Dispo: Patient awaiting dialysis placement. SW/CM aware. Patient going for fistulogram with possible balloon angioplasty today. Discussed with Dr. Ross Murphy, PGY1 <Gaston Hawkins - Last Filed: 09/30/18 17:10> Objective - Vital Signs/Intake and Output Vital Signs (last 24 hours): Temp Pulse Resp BP Pulse Ox 97.5 F L 72 20 165/89 H 100 09/30/18 17:06 09/30/18 17:06 09/30/18 17:06 09/30/18 17:06 09/30/18 17:06 - Medications Medications: Current Medications Albuterol/Ipratropium (Duoneb 3 Mg/0.5 Mg (3 Ml) Ud) 3 ml INH RQ6 PRN PRN Reason: Shortness of Breath Calcium Acetate (Phoslo) 1,334 mg PO TID [facility] Last Admin: 09/30/18 13:41 Dose: 1,334 mg Diphenhydramine HCl (Benadryl) 25 mg PO Q12H PRN PRN Reason: Itching / Pruritus Docusate Sodium (Colace) 100 mg PO TID [facility] Last Admin: 09/30/18 13:38 Dose: 100 mg Ferric Sodium Gluconate Complex (Ferrlecit) 125 mg IVPB DAILY [facility] Stop: 10/03/18 10:01 Last Admin: 09/30/18 09:11 Dose: 125 mg Heparin Sodium (Porcine) (Heparin) 5,000 units SC Q8 [facility] Last Admin: 09/30/18 13:38 Dose: 5,000 units Ipratropium [place] (Atrovent) 0.5 mg IH RQ6 [facility] Last Admin: 09/30/18 14:47 Dose: 0.5 mg Metoprolol Succinate (Toprol Xl) 50 mg PO DAILY [facility] Last Admin: 09/30/18 09:11 Dose: 50 mg Pantoprazole Sodium (Protonix Ec Tab) 40 mg PO DAILY [facility] Last Admin: 09/30/18 09:11 Dose: 40 mg Tamsulosin HCl (Flomax) 0.4 mg PO DAILY [facility] Last Admin: 09/30/18 09:11 Dose: 0.4 mg - Labs Labs: 09/30/18 07:18 09/30/18 07:18 PT 11.8 SECONDS (9.7-12.2) 09/26/18 19:45 INR 1.1 09/26/18 19:45 APTT 35 SECONDS (21-34) H 09/26/18 19:45 Attending/Attestation - Attestation I have personally seen and examined this patient.: Yes I have fully participated in the care of the patient.: Yes I have reviewed all pertinent clinical information, including history, physical exam and plan: Yes Notes (Text): 09/30/18 17:10 This is a late entry. Care of this patient was discussed in detail with resident Dr. Murphy. Gaston Hawkins D.O.
[2018-09-28 07:44] LABS: BASO % 0.6 % (0.0-2.0); EOS # 0.3 K/uL (0.0-0.7); EOS % 9.1 % (0.0-4.0); HEMOGLOBIN 11.1 g/dL (12.0-18.0); LYMPH # 0.3 K/uL (1.0-4.3); LYMPH % 10.3 % (20.0-40.0); MEAN CELL VOLUME 92.7 fL (80.0-94.0); MEAN CORPUSCULAR HEMOGLOBIN 31.5 pg (27.0-31.0); MEAN PLATELET VOLUME 9.9 fL (7.2-11.7); MONO # 0.4 K/uL (0.0-0.8); NEUT # 1.9 K/uL (1.8-7.0); NRBC % 0.1 % (0.0-2.0); RBC 3.53 Mil/uL (4.40-5.90); RED CELL DISTRIBUTION WIDTH 17.1 % (11.5-14.5)
--- NOTE | 2018-09-28 08:04 | CP.PCM.PN ---
Subjective - Date & Time of Evaluation Date of Evaluation: 09/28/18 Time of Evaluation: 08:01 - Subjective Subjective: s/p dialysis 09/27- UF 2300ml c/o itching- phos elevated not dyspneic, no CP, n, v, fevers, chills iron sat decreased seen by surgery for AV access failure Objective - Vital Signs/Intake and Output Vital Signs (last 24 hours): Temp Pulse Resp BP Pulse Ox 97.6 F 70 20 134/74 96 09/28/18 07:00 09/28/18 07:00 09/28/18 07:00 09/28/18 07:00 09/28/18 07:00 - Medications Medications: Current Medications Albuterol/Ipratropium (Duoneb 3 Mg/0.5 Mg (3 Ml) Ud) 3 ml INH RQ6 PRN PRN Reason: Shortness of Breath Docusate Sodium (Colace) 100 mg PO TID [facility] Last Admin: 09/27/18 17:50 Dose: 100 mg Heparin Sodium (Porcine) (Heparin) 5,000 units SC Q8 [facility] Last Admin: 09/27/18 21:07 Dose: 5,000 units Ipratropium [place] (Atrovent) 0.5 mg IH RQ6 [facility] Last Admin: 09/28/18 03:00 Dose: Not Given Metoprolol Succinate (Toprol Xl) 50 mg PO DAILY [facility] Last Admin: 09/27/18 17:50 Dose: 50 mg Pantoprazole Sodium (Protonix Ec Tab) 40 mg PO DAILY [facility] Last Admin: 09/27/18 10:30 Dose: Not Given Tamsulosin HCl (Flomax) 0.4 mg PO DAILY [facility] Last Admin: 09/27/18 14:57 Dose: 0.4 mg - Labs Labs: 09/28/18 07:33 09/27/18 06:31 PT 11.8 SECONDS (9.7-12.2) 09/26/18 19:45 INR 1.1 09/26/18 19:45 APTT 35 SECONDS (21-34) H 09/26/18 19:45 - Constitutional Appears: No Acute Distress, Chronically Ill - Head Exam Head Exam: ATRAUMATIC, NORMAL INSPECTION - Eye Exam Eye Exam: EOMI, Normal appearance - Neck Exam Neck Exam: Normal Inspection. absent: Tenderness - Respiratory Exam Respiratory Exam: Clear to Ausculation Bilateral, NORMAL BREATHING PATTERN - Cardiovascular Exam Cardiovascular Exam: REGULAR RHYTHM, +S1 - GI/Abdominal Exam GI & Abdominal Exam: Soft, Normal Bowel Sounds - Extremities Exam Extremities Exam: Normal Inspection. absent: Tenderness - Neurological Exam Neurological Exam: Awake, CN II-XII Intact - Skin Skin Exam: Dry, Warm Assessment and Plan (1) Failure of surgically constructed arteriovenous fistula Status: Acute (2) Essential hypertension Status: Acute (3) Secondary hyperparathyroidism Status: Acute (4) COPD (chronic obstructive pulmonary disease) with chronic bronchitis Status: Chronic (5) End-stage renal disease Status: Chronic - Assessment and Plan (Free Text) Plan: add ca acetate dialysis TTS surgery eval ongoing add IV iron will need HD placement
[2018-09-28 08:09] LABS: CALCIUM 8.7 mg/dl (8.6-10.4)
[2018-09-28 08:10] LABS: ALB/GLOB RATIO 2.2 (1.0-2.1)
[2018-09-28] MEDS: Ferric Sodium Gluconat Complex 62.5 mg/5 ml Vial IVPB SCH (09:12)
[2018-09-28] MEDS: Metoprolol Succinate 50 mg XL Tab PO SCH (09:12)
[2018-09-28] MEDS: Pantoprazole 40 mg EC Tab PO SCH (09:16)
[2018-09-28] MEDS ORDERED: HEPARIN-NS 5,000 UNITS/500 ML 5,000 UNIT/500 ML BAG IV ONE (12:40)
[2018-09-28] MEDS ORDERED: Iodixanol 320 MG/ML 200 ML BOTTLE IV ONE (12:40)
[2018-09-28] MEDS ORDERED: ceFAZolin 1 gm in NS 2 GM/200 ML BAG IVPB ONE (12:40)
[2018-09-28] MEDS ORDERED: Lidocaine Hydrochloride 15 ML INJ ONE (12:54)
[2018-09-28] MEDS ORDERED: Midazolam 2 MG/2 ML VIAL ONE (13:02)
--- NOTE | 2018-09-28 13:56 | CP.PCM.PCO ---
Physician Communication Note - Physician Communication Note Physician Communication Note: Please see above
[2018-09-28] MEDS ORDERED: HYDROmorphone 0.5 mg/0.5 ml ISec IVP PRN (14:12)
--- NOTE | 2018-09-28 14:18 | PCM.SURG1 ---
Surgeon's Initial Post Op Note - Surgeon's Notes Surgeon: Dr. Altman Tar Heater Operator: Dr. Kyara Eller, PGY 1 Pre-Operative Diagnosis: ESRD Operative Findings: see operative note Post-Operative Diagnosis: ESRD, innominate artery stenosis Operation Performed: fistulogram Specimen/Specimens Removed: none Estimated Blood Loss: EBL {In ML}: 10 Blood Products Given: N/A Drains Used: No Drains Post-Op Condition: Good Date of Surgery/Procedure: 09/28/18 Time of Surgery/Procedure: 13:15
--- NOTE | 2018-09-29 00:24 | CP.PCM.PN ---
<Kali Esquivel M - Last Filed: 09/29/18 06:34> Subjective - Date & Time of Evaluation Date of Evaluation: 09/29/18 Time of Evaluation: 05:40 - Subjective Subjective: Medicine progress note for Dr. Shan Hawkins Patient seen and examined at bedside. Patient lying comfortably. Patient reports feeling good. Patient scheduled for dialysis. Denies headaches, vision changes, chest pain, cough, abdominal pain, nausea, vomiting, diarrhea, constipation. Patient reports of itchiness on back. Objective - Vital Signs/Intake and Output Vital Signs (last 24 hours): Temp Pulse Resp BP Pulse Ox 97.3 F L 73 20 147/85 98 09/28/18 16:45 09/28/18 20:00 09/28/18 16:45 09/28/18 16:45 09/28/18 16:45 Intake and Output: 09/28/18 09/29/18 18:59 06:59 Intake Total 53 300 Balance 53 300 - Medications Medications: Current Medications Albuterol/Ipratropium (Duoneb 3 Mg/0.5 Mg (3 Ml) Ud) 3 ml INH RQ6 PRN PRN Reason: Shortness of Breath Calcium Acetate (Phoslo) 1,334 mg PO TID [facility] Last Admin: 09/28/18 17:52 Dose: 1,334 mg Docusate Sodium (Colace) 100 mg PO TID [facility] Last Admin: 09/28/18 17:52 Dose: 100 mg Ferric Sodium Gluconate Complex (Ferrlecit) 125 mg IVPB DAILY [facility] Stop: 10/03/18 10:01 Last Admin: 09/28/18 09:12 Dose: 125 mg Heparin Sodium (Porcine) (Heparin) 5,000 units SC Q8 [facility] Last Admin: 09/27/18 21:07 Dose: 5,000 units Ipratropium [place] (Atrovent) 0.5 mg IH RQ6 [facility] Last Admin: 09/28/18 20:42 Dose: Not Given Metoprolol Succinate (Toprol Xl) 50 mg PO DAILY [facility] Last Admin: 09/28/18 09:12 Dose: 50 mg Pantoprazole Sodium (Protonix Ec Tab) 40 mg PO DAILY [facility] Last Admin: 09/28/18 09:16 Dose: Not Given Tamsulosin HCl (Flomax) 0.4 mg PO DAILY [facility] Last Admin: 09/28/18 09:16 Dose: Not Given - Labs Labs: 09/28/18 07:33 09/28/18 07:33 PT 11.8 SECONDS (9.7-12.2) 09/26/18 19:45 INR 1.1 09/26/18 19:45 APTT 35 SECONDS (21-34) H 09/26/18 19:45 - Constitutional Appears: Non-toxic, No Acute Distress - Head Exam Head Exam: NORMAL INSPECTION - Eye Exam Eye Exam: EOMI, Normal appearance - ENT Exam ENT Exam: Mucous Membranes Moist - Respiratory Exam Respiratory Exam: NORMAL BREATHING PATTERN. absent: Rales, Rhonchi, Wheezes - Cardiovascular Exam Cardiovascular Exam: +S1, +S2. absent: Murmur Additional comments: L sided permacath present - GI/Abdominal Exam GI & Abdominal Exam: Soft, Normal Bowel Sounds - Extremities Exam Extremities Exam: Full ROM, Normal Inspection. absent: Calf Tenderness, Pedal Edema Additional comments: LUE AVF w/ no palpable thrill - Back Exam Back Exam: absent: CVA tenderness (L), CVA tenderness (R) Additional comments: no erythema, no lesions on back - Neurological Exam Neurological Exam: Alert, Awake, Oriented x3 - Psychiatric Exam Psychiatric exam: Normal Affect, Normal Mood - Skin Skin Exam: Dry, Intact, Normal Color, Warm Assessment and Plan - Assessment and Plan (Free Text) Assessment: 63yo [place] M PMH ESRD on HD, HTN, BPH, COPD, lymphoma s/p chemo here for HD after losing his chair at [employer]; awaiting placement Plan: ESRD on HD Acute on chronic Patient missed 2 dialysis sessions this week d-dimer on admisison 799 BUN/Cr on admission 64/10.3 CXR (09/26): Fibro granulomatous changes mid and right upper lung zone. Probably stable with 12/2016. Dialysis catheter in place - Nephro consulted: Dr. Alegre - khushboo appreciated L AVF dysfunction/LUE edema chronic Swelling since surgery with Dr. Huber at [facility] over one year ago -Dr. Altman, vascular surgery, consulted - post fistulagram in [place] 09/28 Itchiness - per nephro, likely due to elevated phosphate - phoslo 1334 PO TID added per nephro Head Trauma, improved acute 09/27/18 Patient lost his balance and bumped his head against a door No neurological findings CT head- Negative, see full report Hypertension Chronic BNP on admission 5230 - home metoprolol 25mg po daily COPD chronic - home Ventolin and Spiriva -> Duonebs qQ6 prn BPH Chronic - home Flomax 0.4mg po daily R shoulder pain Chronic Benadryl 50 IVP given in ED - Lidocaine cream prn Hx of Lymphoma chronic at baseline of pancytopenia - monitor AM labs PPx - DVT: Heparin 5000u SC q8 - GI: Protonix 40mg po daily - Diet: Renal HD Dispo: Patient awaiting dialysis placement. SW/CM aware. Patient post fistulogram with possible balloon angioplasty 09/28. Will consider PO antihistamine pending discussion w/Dr. Hawkins. will d/w Dr. Hawkins <Gaston Hawkins - Last Filed: 09/29/18 10:27> Objective - Vital Signs/Intake and Output Vital Signs (last 24 hours): Temp Pulse Resp BP Pulse Ox 98.1 F 77 20 129/88 98 09/29/18 08:21 09/29/18 08:21 09/29/18 08:21 09/29/18 08:21 09/29/18 08:21 Intake and Output: 09/29/18 09/29/18 06:59 18:59 Intake Total 420 Balance 420 - Medications Medications: Current Medications Albuterol/Ipratropium (Duoneb 3 Mg/0.5 Mg (3 Ml) Ud) 3 ml INH RQ6 PRN PRN Reason: Shortness of Breath Calcium Acetate (Phoslo) 1,334 mg PO TID [facility] Last Admin: 09/29/18 09:10 Dose: 1,334 mg Docusate Sodium (Colace) 100 mg PO TID [facility] Last Admin: 09/29/18 09:10 Dose: 100 mg Ferric Sodium Gluconate Complex (Ferrlecit) 125 mg IVPB DAILY [facility] Stop: 10/03/18 10:01 Last Admin: 09/29/18 09:10 Dose: Not Given Heparin Sodium (Porcine) (Heparin) 5,000 units SC Q8 [facility] Last Admin: 09/27/18 21:07 Dose: 5,000 units Ipratropium [place] (Atrovent) 0.5 mg IH RQ6 [facility] Last Admin: 09/29/18 08:57 Dose: 0.5 mg Metoprolol Succinate (Toprol Xl) 50 mg PO DAILY [facility] Last Admin: 09/29/18 09:14 Dose: Not Given Pantoprazole Sodium (Protonix Ec Tab) 40 mg PO DAILY [facility] Last Admin: 09/29/18 09:10 Dose: 40 mg Tamsulosin HCl (Flomax) 0.4 mg PO DAILY [facility] Last Admin: 09/29/18 09:10 Dose: 0.4 mg - Labs Labs: 09/29/18 07:02 09/29/18 07:02 PT 11.8 SECONDS (9.7-12.2) 09/26/18 19:45 INR 1.1 09/26/18 19:45 APTT 35 SECONDS (21-34) H 09/26/18 19:45 Attending/Attestation - Attestation I have personally seen and examined this patient.: Yes I have fully participated in the care of the patient.: Yes I have reviewed all pertinent clinical information, including history, physical exam and plan: Yes Notes (Text): 09/29/18 10:23 Patient was seen and examined at 10:10 AM 09/29/18 in the HD unit on 3T. Care of this patient was gone over with resident Dr. Daphne Esquivel Upon FULL ROS: Itchiness has resolved on his back Right Shoulder pain that is chronic in nature comes and goes Moving his bowels normally Urinating without difficulty NO chest pain NO SOB Occasionally cough productive of small amount of clear material NO abdominal pain NO other complaints upon FULL ROS Also on Exam: HEENT, Cardio, Resp, GI (Central Obesity), CN II through XII exams are unremarkable Left Arm is edematous and larger in circumference than the right (this is a chronic issue for the past year after his surgery with Vascular Dr. Huber). Please note that on my exam there is an audible thrill over left upper arm (pre antecubbital fossa) AVF site Patient is S/P Fistulogram on 09/28/18: follow up report Disposition: Awaiting outpatient HD placement Gaston Hawkins D.O.
--- NOTE | 2018-09-29 01:13 | OP ---
PROCEDURE DATE: 09/28/2018 OPERATIVE ANGIOGRAM/FISTULOGRAM REPORT PREOPERATIVE DIAGNOSES: Swollen arm, extensive central vein stenosis. POSTOPERATIVE DIAGNOSES: Swollen arm, extensive central vein stenosis. PROCEDURE CARRIED OUT: 1. Fistulogram, left arm. 2. No intervention. SURGEON: Anselmo Altman Jr., MD ADMINISTRATIVE SUPPORT COORDINATOR: Resident ANESTHESIOLOGIST: [place] Esquivel BSN/RN/CCRN INDICATIONS: The patient is an older middle-aged man with renal insufficiency. He had a fistula created in his left arm at [facility]. He now presents with massively swollen arm. OPERATIVE FINDINGS: 1. The fistula is widely patent. 2. The central vein, innominate vein going from the left where the catheter is now was occluded. 3. There is no evidence of arterial or venous stenosis apart from this. DESCRIPTION OF PROCEDURE: The patient was given local anesthesia and intravenous antibiotics. We attempted to puncture directly the fistula, but this was quite difficult. We were unable to do so. Eventually, we punctured the artery and then did a fistulogram from this using a micropuncture technique. After this had been done, the findings were as following. There was no evidence of arterial stenosis. There was no evidence of venous stenosis. attempted to puncture the vein which was somewhat in spasm. Essentially, there was no evidence of central vein stenosis except for a complete occlusion at the level of the left innominate to right innominate vein junction, and there was an indwelling dialysis catheter in this location. After this had been done, we removed the catheter from the arm and terminated the procedure. Pressure was applied. Hemostasis was obtained. RECOMMENDATIONS: 1. The fistula will have to be mobilized to the skin. 2. Balloon angioplasty and/or stenting will have to be carried out on the innominate vein stenosis and then thorough in the meantime, the catheter will have to be placed in the leg to allow this fistula to mature the evidence of swelling in his arm. In as much the surgery was done at the [facility] previously by another surgeon, I think when he is over his acute illness, i.e., he can be transferred back to that location. We will see him as an outpatient. Anselmo Altman Jr., MD
[2018-09-29] MEDS: Ipratropium 0.02% Inhal Soln (0.5 mg/2.5 ml) UD IH SCH ×4 (01:25→19:47)
[2018-09-29 07:26] LABS: BASO % 0.8 % (0.0-2.0); EOS # 0.3 K/uL (0.0-0.7); EOS % 10.4 % (0.0-4.0); HEMOGLOBIN 10.9 g/dL (12.0-18.0); LYMPH # 0.3 K/uL (1.0-4.3); LYMPH % 11.8 % (20.0-40.0); MEAN CELL VOLUME 92.9 fL (80.0-94.0); MEAN CORPUSCULAR HEMOGLOBIN 31.4 pg (27.0-31.0); MEAN CORPUSCULAR HGB CONC 33.8 g/dL (33.0-37.0); MEAN PLATELET VOLUME 10.7 fL (7.2-11.7); MONO # 0.4 K/uL (0.0-0.8); MONO % 13.2 % (0.0-10.0); NEUT # 1.9 K/uL (1.8-7.0); NEUT % 63.8 % (50.0-75.0); RBC 3.48 Mil/uL (4.40-5.90); RED CELL DISTRIBUTION WIDTH 17.3 % (11.5-14.5); WHITE BLOOD COUNT 2.9 K/uL (4.8-10.8)
--- NOTE | 2018-09-29 08:03 | CP.PCM.PN ---
Subjective - Date & Time of Evaluation Date of Evaluation: 09/29/18 Time of Evaluation: 08:00 - Subjective Subjective: Surgery: Dr. Altman Patient doing well. He claims swelling in hand improved. He denies pain or numbness to the L hand. He reports HD scheduled for today. Objective - Vital Signs/Intake and Output Vital Signs (last 24 hours): Temp Pulse Resp BP Pulse Ox 97.7 F 76 20 138/73 97 09/29/18 04:34 09/29/18 04:34 09/29/18 04:34 09/29/18 04:34 09/29/18 04:34 Intake and Output: 09/29/18 09/29/18 06:59 18:59 Intake Total 420 Balance 420 - Medications Medications: Current Medications Albuterol/Ipratropium (Duoneb 3 Mg/0.5 Mg (3 Ml) Ud) 3 ml INH RQ6 PRN PRN Reason: Shortness of Breath Calcium Acetate (Phoslo) 1,334 mg PO TID [facility] Last Admin: 09/28/18 17:52 Dose: 1,334 mg Docusate Sodium (Colace) 100 mg PO TID [facility] Last Admin: 09/28/18 17:52 Dose: 100 mg Ferric Sodium Gluconate Complex (Ferrlecit) 125 mg IVPB DAILY [facility] Stop: 10/03/18 10:01 Last Admin: 09/28/18 09:12 Dose: 125 mg Heparin Sodium (Porcine) (Heparin) 5,000 units SC Q8 [facility] Last Admin: 09/27/18 21:07 Dose: 5,000 units Ipratropium [place] (Atrovent) 0.5 mg IH RQ6 [facility] Last Admin: 09/29/18 01:25 Dose: Not Given Metoprolol Succinate (Toprol Xl) 50 mg PO DAILY [facility] Last Admin: 09/28/18 09:12 Dose: 50 mg Pantoprazole Sodium (Protonix Ec Tab) 40 mg PO DAILY [facility] Last Admin: 09/28/18 09:16 Dose: Not Given Tamsulosin HCl (Flomax) 0.4 mg PO DAILY [facility] Last Admin: 09/28/18 09:16 Dose: Not Given - Labs Labs: 09/29/18 07:02 09/28/18 07:33 PT 11.8 SECONDS (9.7-12.2) 09/26/18 19:45 INR 1.1 09/26/18 19:45 APTT 35 SECONDS (21-34) H 09/26/18 19:45 - Constitutional Appears: Non-toxic, No Acute Distress - Head Exam Head Exam: ATRAUMATIC, NORMOCEPHALIC - Eye Exam Eye Exam: EOMI, Normal appearance - ENT Exam ENT Exam: Mucous Membranes Moist - Respiratory Exam Respiratory Exam: NORMAL BREATHING PATTERN. absent: Respiratory Distress - Cardiovascular Exam Cardiovascular Exam: REGULAR RHYTHM. absent: Tachycardia - Extremities Exam Additional comments: Left radial pulse 2/3, regular no sensory deficits L AVF site dressing CDI Assessment and Plan - Assessment and Plan (Free Text) Assessment: 63 y/o male with malfunctioning L AVF Plan: -s/p fistulagram w/o intervention -cont HD through permacath -further recs per Dr. Agapito Soriano PGY4
[2018-09-29 08:12] LABS: ALBUMIN 3.8 g/dL (3.5-5.0); CALCIUM 9.1 mg/dl (8.6-10.4)
--- NOTE | 2018-09-29 08:17 | CP.PCM.PN ---
Subjective - Date & Time of Evaluation Date of Evaluation: 09/29/18 Time of Evaluation: 08:15 - Subjective Subjective: bp stable afebrile awake alert eating breakfast states feels better wbc down to 2900 ROS no chills fever no chest pain no sob cough no abd pain n,v,d no dysuria no headache dizziness Objective - Vital Signs/Intake and Output Vital Signs (last 24 hours): Temp Pulse Resp BP Pulse Ox 97.7 F 76 20 138/73 97 09/29/18 04:34 09/29/18 04:34 09/29/18 04:34 09/29/18 04:34 09/29/18 04:34 Intake and Output: 09/29/18 09/29/18 06:59 18:59 Intake Total 420 Balance 420 - Medications Medications: Current Medications Albuterol/Ipratropium (Duoneb 3 Mg/0.5 Mg (3 Ml) Ud) 3 ml INH RQ6 PRN PRN Reason: Shortness of Breath Calcium Acetate (Phoslo) 1,334 mg PO TID [facility] Last Admin: 09/28/18 17:52 Dose: 1,334 mg Docusate Sodium (Colace) 100 mg PO TID [facility] Last Admin: 09/28/18 17:52 Dose: 100 mg Ferric Sodium Gluconate Complex (Ferrlecit) 125 mg IVPB DAILY [facility] Stop: 10/03/18 10:01 Last Admin: 09/28/18 09:12 Dose: 125 mg Heparin Sodium (Porcine) (Heparin) 5,000 units SC Q8 [facility] Last Admin: 09/27/18 21:07 Dose: 5,000 units Ipratropium [place] (Atrovent) 0.5 mg IH RQ6 [facility] Last Admin: 09/29/18 01:25 Dose: Not Given Metoprolol Succinate (Toprol Xl) 50 mg PO DAILY [facility] Last Admin: 09/28/18 09:12 Dose: 50 mg Pantoprazole Sodium (Protonix Ec Tab) 40 mg PO DAILY [facility] Last Admin: 09/28/18 09:16 Dose: Not Given Tamsulosin HCl (Flomax) 0.4 mg PO DAILY [facility] Last Admin: 09/28/18 09:16 Dose: Not Given - Labs Labs: 09/29/18 07:02 09/28/18 07:33 PT 11.8 SECONDS (9.7-12.2) 09/26/18 19:45 INR 1.1 09/26/18 19:45 APTT 35 SECONDS (21-34) H 09/26/18 19:45 - Constitutional Appears: Well, No Acute Distress - ENT Exam ENT Exam: Mucous Membranes Moist - Respiratory Exam Respiratory Exam: Clear to Ausculation Bilateral, NORMAL BREATHING PATTERN - Cardiovascular Exam Cardiovascular Exam: REGULAR RHYTHM - GI/Abdominal Exam GI & Abdominal Exam: Soft. absent: Distended, Tenderness - Extremities Exam Extremities Exam: absent: Calf Tenderness Additional comments: left arm swollen states less bruit - Back Exam Back Exam: absent: CVA tenderness (L), CVA tenderness (R) - Psychiatric Exam Psychiatric exam: Normal Affect, Normal Mood - Skin Skin Exam: Dry, Warm Assessment and Plan (1) ESRD (end stage renal disease) on dialysis Status: Chronic (2) Heart failure Status: Acute - Assessment and Plan (Free Text) Plan: schedule dialysis for today pancytopenia noted hx non hodgkins lymphoma consider heme consult
[2018-09-29] MEDS: Pantoprazole 40 mg EC Tab PO SCH (09:10)
[2018-09-29] MEDS: Ferric Sodium Gluconat Complex 62.5 mg/5 ml Vial IVPB SCH ×2 (09:10→10:57)
[2018-09-29] MEDS: Metoprolol Succinate 50 mg XL Tab PO SCH (09:14)
[2018-09-30] MEDS: Ipratropium 0.02% Inhal Soln (0.5 mg/2.5 ml) UD IH SCH ×4 (01:18→20:14)
--- NOTE | 2018-09-30 04:39 | CP.PCM.PN ---
<Kali Esquivel M - Last Filed: 09/30/18 06:15> Subjective - Date & Time of Evaluation Date of Evaluation: 09/30/18 Time of Evaluation: 05:45 - Subjective Subjective: Medicine progress note for Dr. Shan Hawkins. patient seen and examined at bedside. Patient stating the itchiness is now diffuse throughout the body and he cannot stand it anymore. Patient denies SOB, chest pain, N/V, fevers, chills, headaches, vision changes. Reports normal urine and bowel function. Objective - Vital Signs/Intake and Output Vital Signs (last 24 hours): Temp Pulse Resp BP Pulse Ox 97.6 F 78 20 117/63 97 09/29/18 23:14 09/30/18 00:35 09/29/18 23:14 09/29/18 23:14 09/29/18 23:14 - Medications Medications: Current Medications Albuterol/Ipratropium (Duoneb 3 Mg/0.5 Mg (3 Ml) Ud) 3 ml INH RQ6 PRN PRN Reason: Shortness of Breath Calcium Acetate (Phoslo) 1,334 mg PO TID [facility] Last Admin: 09/29/18 17:04 Dose: 1,334 mg Docusate Sodium (Colace) 100 mg PO TID [facility] Last Admin: 09/29/18 17:04 Dose: 100 mg Ferric Sodium Gluconate Complex (Ferrlecit) 125 mg IVPB DAILY [facility] Stop: 10/03/18 10:01 Last Admin: 09/29/18 10:57 Dose: 125 mg Heparin Sodium (Porcine) (Heparin) 5,000 units SC Q8 [facility] Last Admin: 09/29/18 21:30 Dose: 5,000 units Ipratropium [place] (Atrovent) 0.5 mg IH RQ6 [facility] Last Admin: 09/30/18 01:18 Dose: 0.5 mg Metoprolol Succinate (Toprol Xl) 50 mg PO DAILY [facility] Last Admin: 09/29/18 09:14 Dose: Not Given Pantoprazole Sodium (Protonix Ec Tab) 40 mg PO DAILY [facility] Last Admin: 09/29/18 09:10 Dose: 40 mg Tamsulosin HCl (Flomax) 0.4 mg PO DAILY [facility] Last Admin: 09/29/18 09:10 Dose: 0.4 mg - Labs Labs: 09/29/18 07:02 09/29/18 07:02 PT 11.8 SECONDS (9.7-12.2) 09/26/18 19:45 INR 1.1 09/26/18 19:45 APTT 35 SECONDS (21-34) H 09/26/18 19:45 - Constitutional Appears: Non-toxic, No Acute Distress - Head Exam Head Exam: ATRAUMATIC, NORMAL INSPECTION, NORMOCEPHALIC - Eye Exam Eye Exam: EOMI, Normal appearance - ENT Exam ENT Exam: Mucous Membranes Moist - Respiratory Exam Respiratory Exam: Clear to Ausculation Bilateral, NORMAL BREATHING PATTERN. a bsent: Rales, Rhonchi, Wheezes - Cardiovascular Exam Cardiovascular Exam: +S1, +S2. absent: Murmur Additional comments: L sided permacath dressing c/d/i pt reports no pain at area of insertion - GI/Abdominal Exam GI & Abdominal Exam: Soft, Normal Bowel Sounds. absent: Firm, Guarding, Rigid - Extremities Exam Extremities Exam: Full ROM. absent: Calf Tenderness, Pedal Edema Additional comments: L arm swlling > R arm - chronic LUE AVF, audible bruit, no palpable thrill - Back Exam Back Exam: Full ROM. absent: CVA tenderness (L), CVA tenderness (R) - Neurological Exam Neurological Exam: Alert, Awake, Oriented x3 - Psychiatric Exam Psychiatric exam: Normal Affect, Normal Mood - Skin Skin Exam: Dry, Intact, Normal Color, Warm. absent: Mottled, Rash, Urticaria Assessment and Plan - Assessment and Plan (Free Text) Assessment: 63yo [place] M PMH ESRD on HD, HTN, BPH, COPD, lymphoma s/p chemo here for HD after losing his chair at [employer]; awaiting placement Plan: ESRD on HD Acute on chronic -Patient missed 2 dialysis sessions this week -d-dimer on admisison 799 -BUN/Cr on admission 64/10.3 -CXR (09/26): Fibro granulomatous changes mid and right upper lung zone. Probably stable with 12/2016. Dialysis catheter in place - Nephro consulted: Dr. Alegre - khushboo appreciated -S/p dialysis 09/29, will monitor AM labs L AVF dysfunction/LUE edema chronic -Swelling since surgery with Dr. Huber at [facility] over one year ago -Dr. Agapito, vascular surgery, consulted - post fistulagram in [place] 09/28 Itchiness - per nephro, likely due to elevated phosphate - phoslo 1334 PO TID added per nephro - 1 X claritin given overnight 09/29 to patient due to extreme itchiness - will monitor for resolution of itchiness Head Trauma, improved acute -09/27/18 Patient lost his balance and bumped his head against a door -No neurological findings -CT head- Negative, see full report Hypertension Chronic -BNP on admission 5230 - home metoprolol 25mg po daily COPD chronic - home Ventolin and Spiriva -> Duonebs qQ6 prn BPH Chronic - home Flomax 0.4mg po daily R shoulder pain Chronic -Lidocaine cream prn Hx of Lymphoma chronic at baseline of pancytopenia - monitor AM labs PPx - DVT: Heparin 5000u SC q8 - GI: Protonix 40mg po daily - Diet: Renal HD Dispo: Patient awaiting dialysis placement. SW/CM aware. Patient post fistulo gram with possible balloon angioplasty 09/28. Will consider PO antihistamine pending discussion w/Dr. Hawkins. will d/w Dr. Hawkins <Gaston Hawkins - Last Filed: 09/30/18 17:09> Objective - Vital Signs/Intake and Output Vital Signs (last 24 hours): Temp Pulse Resp BP Pulse Ox 97.5 F L 72 20 165/89 H 100 09/30/18 17:06 09/30/18 17:06 09/30/18 17:06 09/30/18 17:06 09/30/18 17:06 - Medications Medications: Current Medications Albuterol/Ipratropium (Duoneb 3 Mg/0.5 Mg (3 Ml) Ud) 3 ml INH RQ6 PRN PRN Reason: Shortness of Breath Calcium Acetate (Phoslo) 1,334 mg PO TID [facility] Last Admin: 09/30/18 13:41 Dose: 1,334 mg Diphenhydramine HCl (Benadryl) 25 mg PO Q12H PRN PRN Reason: Itching / Pruritus Docusate Sodium (Colace) 100 mg PO TID [facility] Last Admin: 09/30/18 13:38 Dose: 100 mg Ferric Sodium Gluconate Complex (Ferrlecit) 125 mg IVPB DAILY [facility] Stop: 10/03/18 10:01 Last Admin: 09/30/18 09:11 Dose: 125 mg Heparin Sodium (Porcine) (Heparin) 5,000 units SC Q8 [facility] Last Admin: 09/30/18 13:38 Dose: 5,000 units Ipratropium [place] (Atrovent) 0.5 mg IH RQ6 [facility] Last Admin: 09/30/18 14:47 Dose: 0.5 mg Metoprolol Succinate (Toprol Xl) 50 mg PO DAILY [facility] Last Admin: 09/30/18 09:11 Dose: 50 mg Pantoprazole Sodium (Protonix Ec Tab) 40 mg PO DAILY [facility] Last Admin: 09/30/18 09:11 Dose: 40 mg Tamsulosin HCl (Flomax) 0.4 mg PO DAILY [facility] Last Admin: 09/30/18 09:11 Dose: 0.4 mg - Labs Labs: 09/30/18 07:18 09/30/18 07:18 PT 11.8 SECONDS (9.7-12.2) 09/26/18 19:45 INR 1.1 09/26/18 19:45 APTT 35 SECONDS (21-34) H 09/26/18 19:45 Attending/Attestation - Attestation I have personally seen and examined this patient.: Yes I have fully participated in the care of the patient.: Yes I have reviewed all pertinent clinical information, including history, physical exam and plan: Yes Notes (Text): 09/30/18 17:07 Patient was seen and examined at 9:00 AM 09/30/18 in bed 663A. Care of this patient was gone over with resident Dr. Daphne Esquivel Upon FULL ROS: Itchiness occurred over his back during the night Right Shoulder pain that is chronic in nature comes and goes Moving his bowels normally Urinating without difficulty NO chest pain NO SOB Occasionally cough productive of small amount of clear material NO abdominal pain NO other complaints upon FULL ROS Also on Exam: HEENT, Cardio, Resp, GI (Central Obesity), CN II through XII exams are unre markable Left Arm is edematous and larger in circumference than the right (this is a chronic issue for the past year after his surgery with Vascular Dr. Huber). Please note that on my exam there is an audible thrill over left upper arm (pre antecubbital fossa) AVF site NO rash noted on chest or abdomen. However there are a few excoriations in the lower back (likely from patient scratching) Added Benadryl 25 mg PO Q6H PRN Pruritus and patient instructed to ask for it if needed Patient is S/P Fistulogram on 09/28/18: follow up report Disposition: Awaiting outpatient HD placement Gaston Hawkins D.O.
[2018-09-30 07:35] LABS: BASO % 0.6 % (0.0-2.0); EOS # 0.3 K/uL (0.0-0.7); EOS % 8.9 % (0.0-4.0); HEMOGLOBIN 11.2 g/dL (12.0-18.0); LYMPH # 0.4 K/uL (1.0-4.3); LYMPH % 12.1 % (20.0-40.0); MEAN CELL VOLUME 93.7 fL (80.0-94.0); MEAN CORPUSCULAR HGB CONC 33.1 g/dL (33.0-37.0); MONO # 0.5 K/uL (0.0-0.8); MONO % 15.6 % (0.0-10.0); NEUT # 1.9 K/uL (1.8-7.0); NEUT % 62.8 % (50.0-75.0); NRBC % 0.2 % (0.0-2.0); RBC 3.62 Mil/uL (4.40-5.90); RED CELL DISTRIBUTION WIDTH 17.2 % (11.5-14.5)
[2018-09-30 08:01] LABS: ALB/GLOB RATIO 1.9 (1.0-2.1); CALCIUM 9.4 mg/dl (8.6-10.4)
[2018-09-30] MEDS: Pantoprazole 40 mg EC Tab PO SCH (09:11)
[2018-09-30] MEDS: Metoprolol Succinate 50 mg XL Tab PO SCH (09:11)
[2018-09-30] MEDS: Ferric Sodium Gluconat Complex 62.5 mg/5 ml Vial IVPB SCH (09:11)
[2018-10-01] MEDS: Ipratropium 0.02% Inhal Soln (0.5 mg/2.5 ml) UD IH SCH ×4 (01:31→19:36)
--- NOTE | 2018-10-01 07:03 | CP.PCM.PN ---
<Vita King - Last Filed: 10/01/18 13:18> Subjective - Date & Time of Evaluation Date of Evaluation: 10/01/18 Time of Evaluation: 07:02 - Subjective Subjective: PGY-1 Vita King D.O. Medicine progress note for Dr. Landry's service: Patient was seen and examined this morning. He is sitting up in bed eating breakfast. he says he feels well except for the itching in his back. He says that the Benadryl last night helped somewhat, but he still feels itching on his back and legs. Patient expresses confusion about his dialysis schedule; he is informed by securities underwriter and nurse that he is receiving hemodialysis on TTS schedule while in the hospital. Patient says he has no pain in his left arm. He says it is always swollen, and he is not bothered by it. He states he did follow-up with the vascular surgery at [facility] who said he needed another surgery, but he never had this scheduled. Objective - Vital Signs/Intake and Output Vital Signs (last 24 hours): Temp Pulse Resp BP Pulse Ox 97.6 F 77 20 131/77 98 09/30/18 23:10 10/01/18 03:51 09/30/18 23:10 09/30/18 23:10 09/30/18 23:10 - Medications Medications: Current Medications Albuterol/Ipratropium (Duoneb 3 Mg/0.5 Mg (3 Ml) Ud) 3 ml INH RQ6 PRN PRN Reason: Shortness of Breath Calcium Acetate (Phoslo) 1,334 mg PO TID [facility] Last Admin: 09/30/18 17:53 Dose: 1,334 mg Diphenhydramine HCl (Benadryl) 25 mg PO Q12H PRN PRN Reason: Itching / Pruritus Last Admin: 09/30/18 21:16 Dose: 25 mg Docusate Sodium (Colace) 100 mg PO TID [facility] Last Admin: 09/30/18 17:51 Dose: 100 mg Ferric Sodium Gluconate Complex (Ferrlecit) 125 mg IVPB DAILY [facility] Stop: 10/03/18 10:01 Last Admin: 09/30/18 09:11 Dose: 125 mg Heparin Sodium (Porcine) (Heparin) 5,000 units SC Q8 [facility] Last Admin: 10/01/18 05:27 Dose: 5,000 units Ipratropium [place] (Atrovent) 0.5 mg IH RQ6 [facility] Last Admin: 10/01/18 01:31 Dose: Not Given Metoprolol Succinate (Toprol Xl) 50 mg PO DAILY [facility] Last Admin: 09/30/18 09:11 Dose: 50 mg Pantoprazole Sodium (Protonix Ec Tab) 40 mg PO DAILY [facility] Last Admin: 09/30/18 09:11 Dose: 40 mg Tamsulosin HCl (Flomax) 0.4 mg PO DAILY [facility] Last Admin: 09/30/18 09:11 Dose: 0.4 mg - Labs Labs: 09/30/18 07:18 09/30/18 07:18 PT 11.8 SECONDS (9.7-12.2) 09/26/18 19:45 INR 1.1 09/26/18 19:45 APTT 35 SECONDS (21-34) H 09/26/18 19:45 - Constitutional Appears: Non-toxic, No Acute Distress - Head Exam Head Exam: ATRAUMATIC, NORMAL INSPECTION - Eye Exam Eye Exam: EOMI, Normal appearance - ENT Exam ENT Exam: Mucous Membranes Moist - Respiratory Exam Respiratory Exam: Clear to Ausculation Bilateral, NORMAL BREATHING PATTERN - Cardiovascular Exam Cardiovascular Exam: RRR, +S1, +S2 Additional comments: Permacath on L chest - GI/Abdominal Exam GI & Abdominal Exam: Soft. absent: Distended, Tenderness - Extremities Exam Extremities Exam: absent: Pedal Edema, Tenderness Additional comments: LUE nonpitting edema LUE AVF with audible bruit, thrill not palpated - Back Exam Back Exam: NORMAL INSPECTION - Neurological Exam Neurological Exam: Alert, Awake, CN II-XII Intact, Oriented x3 - Psychiatric Exam Psychiatric exam: Normal Affect, Normal Mood - Skin Skin Exam: Normal Color, Warm. absent: Erythema, Rash, Urticaria Assessment and Plan - Assessment and Plan (Free Text) Assessment: Patient is a 63 yo male with ESRD on HD, HTN, h/o lymphoma s/p chemotherapy, COPD, and BPH who presented for urgent dialysis. Patient was previously receiving dialysis as an outpatient; however, he went to [place] for 3 weeks without telling the dialysis center, and he lost his spot. Patient has a malfunc tioning AVF in the left arm, and he is currently receiving HD via permacath. Vascular surgery was consulted and performed a fistulogram without any intervention. Patient is pending dialysis placement. Plan: End stage renal disease on hemodialysis, acute on chronic - BUN 64, Cr 10.3 on admission - D-dimer 799 - BNP 5230 - PTH 423 - HD on TTS via L-sided permacath - Ferrlecit 125 mg IV daily - Phoslo 1334 mg PO TID - Nephrology consulted (Codey) - CM/SW consulted- pending HD placement, patient's info sent to [email or web address] (patient's previous HD location) Pruritus 2/2 hyperphosphatemia, acute - Continue HD as per nephro - Phoslo 1334 mg PO TID - Benadryl 25 mg PO Q12H PRN - Start Claritin 10 mg PO daily Malfunctioning AVF of LUE, chronic - Fistulogram on 09/28 without intervention - Vascular surgery consulted (McLain)- fistulogram 09/28, will need balloon or stent - f/u outpatient with patient's [facility] vasc surgeon Dr. Huber Hypertension, chronic - Vitals Q6H - Metoprolol succinate 50 mg PO daily Chronic obstructive pulmonary disease, chronic - Patient with elevated eosinophils - IgE pending- consider addition of Singulair - Atrovent 0.5 mg Q6H - Duoneb Q6H PRN Benign prostatic hypertrophy, chronic - Flomax 0.4 mg PO daily Pancytopenia with h/o Lymphoma s/p chemotherapy, chronic, stable - Continue to monitor CBC on TTS with HD - f/u outpatient with patient's hem/onc in [facility] Ppx: VTE: SCDs, Heparin 5000u SC Q8H GI: Protonix 40 mg PO daily Diet: Renal Code status: full code Labs TTS with HD Dispo: Pending outpatient HD placement. Patient will need to f/u outpatient with his vascular surgeon, Dr. Huber, at [facility] for AVF malfunction. Patient will also need to f/u with oncologist in [facility] to assess lymphoma. Case was discussed with attending, Dr. Landry. <Dena Landry V - Last Filed: 10/01/18 14:13> Objective - Vital Signs/Intake and Output Vital Signs (last 24 hours): Temp Pulse Resp BP Pulse Ox 97.5 F L 75 20 163/88 H 100 10/01/18 07:00 10/01/18 12:18 10/01/18 07:00 10/01/18 07:00 10/01/18 07:00 - Medications Medications: Current Medications Albuterol/Ipratropium (Duoneb 3 Mg/0.5 Mg (3 Ml) Ud) 3 ml INH RQ6 PRN PRN Reason: Shortness of Breath Calcium Acetate (Phoslo) 1,334 mg PO TID [facility] Last Admin: 10/01/18 13:22 Dose: 1,334 mg Diphenhydramine HCl (Benadryl) 25 mg PO Q12H PRN PRN Reason: Itching / Pruritus Last Admin: 09/30/18 21:16 Dose: 25 mg Docusate Sodium (Colace) 100 mg PO TID [facility] Last Admin: 10/01/18 13:22 Dose: 100 mg Ferric Sodium Gluconate Complex (Ferrlecit) 125 mg IVPB DAILY [facility] Stop: 10/03/18 10:01 Last Admin: 10/01/18 10:17 Dose: 125 mg Heparin Sodium (Porcine) (Heparin) 5,000 units SC Q8 [facility] Last Admin: 10/01/18 13:23 Dose: 5,000 units Ipratropium [place] (Atrovent) 0.5 mg IH RQ6 [facility] Last Admin: 10/01/18 13:08 Dose: 0.5 mg Loratadine (Claritin) 10 mg PO DAILY [facility] Last Admin: 10/01/18 10:34 Dose: 10 mg Metoprolol Succinate (Toprol Xl) 50 mg PO DAILY [facility] Last Admin: 10/01/18 10:19 Dose: 50 mg Pantoprazole Sodium (Protonix Ec Tab) 40 mg PO DAILY [facility] Last Admin: 10/01/18 10:18 Dose: 40 mg Tamsulosin HCl (Flomax) 0.4 mg PO DAILY [facility] Last Admin: 10/01/18 10:18 Dose: 0.4 mg - Labs Labs: 10/01/18 11:52 10/01/18 11:52 PT 11.8 SECONDS (9.7-12.2) 09/26/18 19:45 INR 1.1 09/26/18 19:45 APTT 35 SECONDS (21-34) H 09/26/18 19:45 Attending/Attestation - Attestation I have personally seen and examined this patient.: Yes I have fully participated in the care of the patient.: Yes I have reviewed all pertinent clinical information, including history, physical exam and plan: Yes Notes (Text): Patient seen, examined, and case discussed with day-time resident. Patient denies acute complaints. Patient denies itchiness. Patient reports he was not aware he needed to tell his hemodialysis about his extended trip to [place]. Review of record, patient was recommended for vascular surgery, Dr. Hutton for balloon stenting of left upper extremity at [facility]. Patient's inpatient //Monday dialysis while in house. Pending outpatient placement; case management is aware working on placement. Patient reports he has not seen his personal heme-onc in [facility] for quite sometime advised to make a a follow-up appointment; noted nonhodgkins lymphoma was in remission.
[2018-10-01] MEDS: Ferric Sodium Gluconat Complex 62.5 mg/5 ml Vial IVPB SCH (10:17)
[2018-10-01] MEDS: Pantoprazole 40 mg EC Tab PO SCH (10:18)
[2018-10-01] MEDS: Metoprolol Succinate 50 mg XL Tab PO SCH (10:19)
[2018-10-01 12:00] LABS: BASO % 0.9 % (0.0-2.0); EOS # 0.3 K/uL (0.0-0.7); EOS % 11.8 % (0.0-4.0); HEMOGLOBIN 11.1 g/dL (12.0-18.0); LYMPH # 0.5 K/uL (1.0-4.3); LYMPH % 16.9 % (20.0-40.0); MEAN CELL VOLUME 92.9 fL (80.0-94.0); MEAN CORPUSCULAR HEMOGLOBIN 31.4 pg (27.0-31.0); MEAN CORPUSCULAR HGB CONC 33.8 g/dL (33.0-37.0); MONO # 0.4 K/uL (0.0-0.8); MONO % 15.2 % (0.0-10.0); NEUT # 1.5 K/uL (1.8-7.0); NEUT % 55.2 % (50.0-75.0); NRBC % 0.1 % (0.0-2.0); RBC 3.55 Mil/uL (4.40-5.90); RED CELL DISTRIBUTION WIDTH 17.2 % (11.5-14.5); WHITE BLOOD COUNT 2.8 K/uL (4.8-10.8)
--- NOTE | 2018-10-01 12:28 | CP.PCM.PN ---
Subjective - Date & Time of Evaluation Date of Evaluation: 10/01/18 Time of Evaluation: 12:24 - Subjective Subjective: Comfortable last dialysis 09/29 HTN generally controlled no new complaints still with leukopenia, low plats Objective - Vital Signs/Intake and Output Vital Signs (last 24 hours): Temp Pulse Resp BP Pulse Ox 97.5 F L 79 20 163/88 H 100 10/01/18 07:00 10/01/18 07:06 10/01/18 07:00 10/01/18 07:00 10/01/18 07:00 - Medications Medications: Current Medications Albuterol/Ipratropium (Duoneb 3 Mg/0.5 Mg (3 Ml) Ud) 3 ml INH RQ6 PRN PRN Reason: Shortness of Breath Calcium Acetate (Phoslo) 1,334 mg PO TID [facility] Last Admin: 10/01/18 10:18 Dose: 1,334 mg Diphenhydramine HCl (Benadryl) 25 mg PO Q12H PRN PRN Reason: Itching / Pruritus Last Admin: 09/30/18 21:16 Dose: 25 mg Docusate Sodium (Colace) 100 mg PO TID [facility] Last Admin: 10/01/18 10:18 Dose: 100 mg Ferric Sodium Gluconate Complex (Ferrlecit) 125 mg IVPB DAILY [facility] Stop: 10/03/18 10:01 Last Admin: 10/01/18 10:17 Dose: 125 mg Heparin Sodium (Porcine) (Heparin) 5,000 units SC Q8 [facility] Last Admin: 10/01/18 05:27 Dose: 5,000 units Ipratropium [place] (Atrovent) 0.5 mg IH RQ6 [facility] Last Admin: 10/01/18 07:43 Dose: 0.5 mg Loratadine (Claritin) 10 mg PO DAILY [facility] Last Admin: 10/01/18 10:34 Dose: 10 mg Metoprolol Succinate (Toprol Xl) 50 mg PO DAILY [facility] Last Admin: 10/01/18 10:19 Dose: 50 mg Pantoprazole Sodium (Protonix Ec Tab) 40 mg PO DAILY [facility] Last Admin: 10/01/18 10:18 Dose: 40 mg Tamsulosin HCl (Flomax) 0.4 mg PO DAILY [facility] Last Admin: 10/01/18 10:18 Dose: 0.4 mg - Labs Labs: 10/01/18 11:52 09/30/18 07:18 PT 11.8 SECONDS (9.7-12.2) 09/26/18 19:45 INR 1.1 09/26/18 19:45 APTT 35 SECONDS (21-34) H 09/26/18 19:45 - Constitutional Appears: No Acute Distress, Chronically Ill - Head Exam Head Exam: ATRAUMATIC, NORMAL INSPECTION - Eye Exam Eye Exam: EOMI, Normal appearance - Respiratory Exam Respiratory Exam: Clear to Ausculation Bilateral, NORMAL BREATHING PATTERN - Cardiovascular Exam Cardiovascular Exam: REGULAR RHYTHM, +S1 - GI/Abdominal Exam GI & Abdominal Exam: Soft. absent: Tenderness - Extremities Exam Extremities Exam: Normal Inspection. absent: Tenderness - Neurological Exam Neurological Exam: Awake, CN II-XII Intact - Skin Skin Exam: Dry, Warm Assessment and Plan (1) Failure of surgically constructed arteriovenous fistula Status: Acute (2) Essential hypertension Status: Acute (3) Secondary hyperparathyroidism Status: Acute (4) COPD (chronic obstructive pulmonary disease) with chronic bronchitis Status: Chronic (5) End-stage renal disease Status: Chronic - Assessment and Plan (Free Text) Plan: same dialysis TTS consider heme eval discussed with vascular- patient would need to be seen by vascular at [facility] as initial AV access done by another vascular surgeon monitor BP
[2018-10-01 12:51] LABS: CALCIUM 9.3 mg/dl (8.6-10.4)
--- NOTE | 2018-10-01 15:08 | RAD ---
Date of service: 09/28/2018 PROCEDURE: Intraoperative Fluoroscopy. HISTORY: END STAGE RENAL FAILURE LT ARM FISTULA FINDINGS: Fluoroscopic assistance was provided for fistula. Please refer to the operative report from JS Mandel. Total fluoroscopic time (continuous mode) utilized during the procedure 119.1 seconds. Dose report: DLP [id number] (mGy/m2)
[2018-10-02] MEDS: Ipratropium 0.02% Inhal Soln (0.5 mg/2.5 ml) UD IH SCH ×3 (01:24→19:34)
[2018-10-02] MEDS: Albuterol-Ipratrop 3 mg / 0.5 (3 ml) UD INH PRN (08:53)
--- NOTE | 2018-10-02 09:05 | CP.PCM.PN ---
Subjective - Date & Time of Evaluation Date of Evaluation: 10/02/18 Time of Evaluation: 09:05 - Subjective Subjective: bp stable afebrile awke alert comfortable in bed ate entire breakfast phosphorus 6 ROS no chills fever no chest pain no sob,cough No abd pain,n,v,d no dysuria pruritus Objective - Vital Signs/Intake and Output Vital Signs (last 24 hours): Temp Pulse Resp BP Pulse Ox 97.4 F L 56 L 20 134/86 93 L 10/02/18 07:00 10/02/18 07:00 10/02/18 07:00 10/02/18 07:00 10/02/18 07:00 - Medications Medications: Current Medications Albuterol/Ipratropium (Duoneb 3 Mg/0.5 Mg (3 Ml) Ud) 3 ml INH RQ6 PRN PRN Reason: Shortness of Breath Last Admin: 10/02/18 08:53 Dose: 3 ml Calcium Acetate (Phoslo) 1,334 mg PO TID [facility] Last Admin: 10/01/18 17:10 Dose: 1,334 mg Diphenhydramine HCl (Benadryl) 25 mg PO Q12H PRN PRN Reason: Itching / Pruritus Last Admin: 10/01/18 21:21 Dose: 25 mg Docusate Sodium (Colace) 100 mg PO TID [facility] Last Admin: 10/01/18 17:10 Dose: 100 mg Ferric Sodium Gluconate Complex (Ferrlecit) 125 mg IVPB DAILY [facility] Stop: 10/03/18 10:01 Last Admin: 10/01/18 10:17 Dose: 125 mg Heparin Sodium (Porcine) (Heparin) 5,000 units SC Q8 [facility] Last Admin: 10/02/18 05:46 Dose: 5,000 units Ipratropium [place] (Atrovent) 0.5 mg IH RQ6 [facility] Last Admin: 10/02/18 08:53 Dose: 0.5 mg Loratadine (Claritin) 10 mg PO DAILY [facility] Last Admin: 10/01/18 10:34 Dose: 10 mg Metoprolol Succinate (Toprol Xl) 50 mg PO DAILY [facility] Last Admin: 10/01/18 10:19 Dose: 50 mg Pantoprazole Sodium (Protonix Ec Tab) 40 mg PO DAILY [facility] Last Admin: 10/01/18 10:18 Dose: 40 mg Tamsulosin HCl (Flomax) 0.4 mg PO DAILY [facility] Last Admin: 10/01/18 10:18 Dose: 0.4 mg - Labs Labs: 10/01/18 11:52 10/01/18 11:52 PT 11.8 SECONDS (9.7-12.2) 09/26/18 19:45 INR 1.1 09/26/18 19:45 APTT 35 SECONDS (21-34) H 09/26/18 19:45 - Constitutional Appears: Well, No Acute Distress - Eye Exam Eye Exam: Normal appearance - ENT Exam ENT Exam: Mucous Membranes Moist - Respiratory Exam Respiratory Exam: Clear to Ausculation Bilateral, NORMAL BREATHING PATTERN - Cardiovascular Exam Cardiovascular Exam: REGULAR RHYTHM. absent: JVD - GI/Abdominal Exam GI & Abdominal Exam: Soft. absent: Distended, Tenderness - Extremities Exam Extremities Exam: absent: Calf Tenderness Additional comments: left arm swelling unchanged - Psychiatric Exam Psychiatric exam: Normal Affect - Skin Skin Exam: Dry, Warm Assessment and Plan (1) ESRD (end stage renal disease) on dialysis Status: Chronic (2) Heart failure Status: Acute (3) CHF (congestive heart failure), NYHA class IV Status: Acute (4) History of lymphoma Status: Acute (5) COPD (chronic obstructive pulmonary disease) Status: Chronic - Assessment and Plan (Free Text) Plan: scheduledilaysis for today with ultrafiltration increase phoslo to 3 tid
[2018-10-02] MEDS: Ferric Sodium Gluconat Complex 62.5 mg/5 ml Vial IVPB SCH ×2 (10:41→12:15)
[2018-10-02] MEDS: Metoprolol Succinate 50 mg XL Tab PO SCH (10:42)
[2018-10-02] MEDS: Pantoprazole 40 mg EC Tab PO SCH (10:42)
[2018-10-02 10:50] LABS: BASO % 0.4 % (0.0-2.0); EOS # 0.3 K/uL (0.0-0.7); EOS % 13.3 % (0.0-4.0); HEMOGLOBIN 10.9 g/dL (12.0-18.0); LYMPH # 0.4 K/uL (1.0-4.3); LYMPH % 16.4 % (20.0-40.0); MEAN CELL VOLUME 92.9 fL (80.0-94.0); MEAN CORPUSCULAR HEMOGLOBIN 30.8 pg (27.0-31.0); MEAN CORPUSCULAR HGB CONC 33.2 g/dL (33.0-37.0); MEAN PLATELET VOLUME 11.2 fL (7.2-11.7); MONO # 0.3 K/uL (0.0-0.8); MONO % 10.3 % (0.0-10.0); NEUT # 1.5 K/uL (1.8-7.0); NEUT % 59.6 % (50.0-75.0); NRBC % 0.1 % (0.0-2.0); RBC 3.54 Mil/uL (4.40-5.90); WHITE BLOOD COUNT 2.5 K/uL (4.8-10.8)
[2018-10-02 11:15] LABS: ALB/GLOB RATIO 2.1 (1.0-2.1); CALCIUM 9.2 mg/dl (8.6-10.4)
--- NOTE | 2018-10-02 14:48 | CP.PCM.PN ---
<Vita King - Last Filed: 10/02/18 15:50> Subjective - Date & Time of Evaluation Date of Evaluation: 10/02/18 Time of Evaluation: 07:48 - Subjective Subjective: PGY-1 Vita King D.O. Medicine progress note for Dr. Landry's service: Patient was seen and examined this morning. He is still complaining of diffuse itching. He is receiving dialysis today. Denies fevers/chills, fatigue, pain. Objective - Vital Signs/Intake and Output Vital Signs (last 24 hours): Temp Pulse Resp BP Pulse Ox 98 F 85 18 135/76 98 10/02/18 13:45 10/02/18 10:15 10/02/18 13:45 10/02/18 13:45 10/02/18 13:45 - Medications Medications: Current Medications Albuterol/Ipratropium (Duoneb 3 Mg/0.5 Mg (3 Ml) Ud) 3 ml INH RQ6 PRN PRN Reason: Shortness of Breath Last Admin: 10/02/18 08:53 Dose: 3 ml Calcium Acetate (Phoslo) 2,001 mg PO TIDCC [facility] Last Admin: 10/02/18 12:03 Dose: Not Given Diphenhydramine HCl (Benadryl) 25 mg PO Q12H PRN PRN Reason: Itching / Pruritus Last Admin: 10/01/18 21:21 Dose: 25 mg Docusate Sodium (Colace) 100 mg PO TID [facility] Last Admin: 10/02/18 13:42 Dose: Not Given Ferric Sodium Gluconate Complex (Ferrlecit) 125 mg IVPB DAILY [facility] Stop: 10/03/18 10:01 Last Admin: 10/02/18 12:15 Dose: 125 mg Heparin Sodium (Porcine) (Heparin) 5,000 units SC Q8 [facility] Last Admin: 10/02/18 13:42 Dose: Not Given Ipratropium [place] (Atrovent) 0.5 mg IH RQ6 [facility] Last Admin: 10/02/18 08:53 Dose: 0.5 mg Loratadine (Claritin) 10 mg PO DAILY [facility] Last Admin: 10/02/18 10:41 Dose: Not Given Metoprolol Succinate (Toprol Xl) 50 mg PO DAILY [facility] Last Admin: 10/02/18 10:42 Dose: Not Given Pantoprazole Sodium (Protonix Ec Tab) 40 mg PO DAILY [facility] Last Admin: 10/02/18 10:42 Dose: Not Given Tamsulosin HCl (Flomax) 0.4 mg PO DAILY [facility] Last Admin: 10/02/18 10:41 Dose: Not Given - Labs Labs: 10/02/18 10:38 10/02/18 10:38 PT 11.8 SECONDS (9.7-12.2) 09/26/18 19:45 INR 1.1 09/26/18 19:45 APTT 35 SECONDS (21-34) H 09/26/18 19:45 - Additional Findings Additional findings: - Constitutional Appears: Non-toxic, No Acute Distress - Head Exam Head Exam: ATRAUMATIC, NORMAL INSPECTION - Eye Exam Eye Exam: EOMI, Normal appearance - ENT Exam ENT Exam: Mucous Membranes Moist - Respiratory Exam Respiratory Exam: Clear to Ausculation Bilateral, NORMAL BREATHING PATTERN - Cardiovascular Exam Cardiovascular Exam: RRR, +S1, +S2 Additional comments: Permacath on L chest - GI/Abdominal Exam GI & Abdominal Exam: Soft. absent: Distended, Tenderness - Extremities Exam Extremities Exam: absent: Pedal Edema, Tenderness Additional comments: LUE nonpitting edema LUE AVF with audible bruit, thrill not palpated - Back Exam Back Exam: NORMAL INSPECTION - Neurological Exam Neurological Exam: Alert, Awake, CN II-XII Intact, Oriented x3 - Psychiatric Exam Psychiatric exam: Normal Affect, Normal Mood - Skin Skin Exam: Normal Color, Warm. absent: Erythema, Rash, Urticaria Assessment and Plan - Assessment and Plan (Free Text) Assessment: Patient is a 63 yo male with ESRD on HD, HTN, h/o lymphoma s/p chemotherapy, COPD, and BPH who presented for urgent dialysis. Patient was previously receiving dialysis as an outpatient; however, he went to [place] for 3 weeks without telling the dialysis center, and he lost his spot. Patient also lost his apartment. Patient has a malfunctioning AVF in the left arm, and he is currently receiving HD via permacath. Vascular surgery was consulted and performed a fistulogram without any intervention. Patient is pending dialysis placement. Plan: End stage renal disease on hemodialysis, acute on chronic - BUN 64, Cr 10.3 on admission - D-dimer 799 - BNP 5230 - PTH 423 - HD on TTS via L-sided permacath - Ferrlecit 125 mg IV daily - Phoslo 1334 mg PO TID - Nephrology consulted ([place]) - CM/SW consulted- pending HD placement, patient's info sent to [facility] (patient's previous HD location) Pruritus 2/2 hyperphosphatemia, acute - Continue HD as per nephro - Phoslo 1334 mg PO TID - Benadryl 25 mg PO Q12H PRN - Claritin 10 mg PO daily Malfunctioning AVF of LUE, chronic - Fistulogram on 09/28 without intervention - Vascular surgery consulted ([place])- fistulogram 09/28, will need balloon or stent - f/u outpatient with patient's [facility] vasc surgeon Dr. Huber Hypertension, chronic - Vitals Q6H - Metoprolol succinate 50 mg PO daily Chronic obstructive pulmonary disease, chronic - Patient with elevated eosinophils - IgE wnl - Atrovent 0.5 mg Q6H - Duoneb Q6H PRN Benign prostatic hypertrophy, chronic - Flomax 0.4 mg PO daily Pancytopenia with h/o Lymphoma s/p chemotherapy, chronic, stable - Continue to monitor CBC on TTS with HD - f/u outpatient with [facility]'s hem[facility]c [facility] Ppx: VTE: SCDs, Heparin 5000u SC Q8H GI: Protonix 40 mg PO daily Diet: Renal Code status: full code Labs TTS with HD Dispo: Pending outpatient HD placement. Patient will need to f/u outpatient with his vascular surgeon, Dr. Huber, at [facility] for AVF malfunction. Patient will also need to f/u with oncologist in [facility] to assess lymphoma status. Case was discussed with attending, Dr. Landry. <Dena Landry V - Last Filed: 10/02/18 16:55> Objective - Vital Signs/Intake and Output Vital Signs (last 24 hours): Temp Pulse Resp BP Pulse Ox 98.1 F 91 H 20 130/74 98 10/02/18 15:53 10/02/18 15:53 10/02/18 15:53 10/02/18 15:53 10/02/18 15:53 - Medications Medications: Current Medications Albuterol/Ipratropium (Duoneb 3 Mg/0.5 Mg (3 Ml) Ud) 3 ml INH RQ6 PRN PRN Reason: Shortness of Breath Last Admin: 10/02/18 08:53 Dose: 3 ml Calcium Acetate (Phoslo) 2,001 mg PO TIDCC [facility] Last Admin: 10/02/18 12:03 Dose: Not Given Diphenhydramine HCl (Benadryl) 25 mg PO Q12H PRN PRN Reason: Itching / Pruritus Last Admin: 10/01/18 21:21 Dose: 25 mg Docusate Sodium (Colace) 100 mg PO TID [facility] Last Admin: 10/02/18 13:42 Dose: Not Given Ferric Sodium Gluconate Complex (Ferrlecit) 125 mg IVPB DAILY [facility] Stop: 10/03/18 10:01 Last Admin: 10/02/18 12:15 Dose: 125 mg Heparin Sodium (Porcine) (Heparin) 5,000 units SC Q8 [facility] Last Admin: 10/02/18 13:42 Dose: Not Given Ipratropium [place] (Atrovent) 0.5 mg IH RQ6 [facility] Last Admin: 10/02/18 08:53 Dose: 0.5 mg Loratadine (Claritin) 10 mg PO DAILY [facility] Last Admin: 10/02/18 10:41 Dose: Not Given Metoprolol Succinate (Toprol Xl) 50 mg PO DAILY [facility] Last Admin: 10/02/18 10:42 Dose: Not Given Pantoprazole Sodium (Protonix Ec Tab) 40 mg PO DAILY [facility] Last Admin: 10/02/18 10:42 Dose: Not Given Tamsulosin HCl (Flomax) 0.4 mg PO DAILY [facility] Last Admin: 10/02/18 10:41 Dose: Not Given - Labs Labs: 10/02/18 10:38 10/02/18 10:38 PT 11.8 SECONDS (9.7-12.2) 09/26/18 19:45 INR 1.1 09/26/18 19:45 APTT 35 SECONDS (21-34) H 09/26/18 19:45 Attending/Attestation - Attestation I have personally seen and examined this patient.: Yes I have fully participated in the care of the patient.: Yes I have reviewed all pertinent clinical information, including history, physical exam and plan: Yes Notes (Text): Patient seen, examined, case discussed with medical editor. Patient seen during dialysis this morning. Patient noting profound right is trying to use tools to itch his back. Patient initial dialysis patient advised to stop moving to prevent any type of blood loss as he is connected to the machine. Nephrology has increase PhosLo to 2001 mg p.o. 3 times daily for elevated phosphorus about 6 will need to monitor potassium as well given that it is borderline high at 5.2. Patient is awaiting placement for outpatient dialysis. Please note patient went to [place] but did not inform dialysis center in regards to his knee. Patient is also been noted to he will have to follow-up with original vascular surgery in light of his knee and balloon stenting of his left upper extremity access. Which he is aware. Patient had blood work on his dialysis days. Return for Monday. We will continue to monitor phosphorus level in light of his pruritus. Blood pressure controlled.
[2018-10-03] MEDS: Ipratropium 0.02% Inhal Soln (0.5 mg/2.5 ml) UD IH SCH ×4 (03:02→13:57)
--- NOTE | 2018-10-03 07:36 | CP.PCM.PN ---
Subjective - Date & Time of Evaluation Date of Evaluation: 10/03/18 Time of Evaluation: 07:34 - Subjective Subjective: no distress no acute events tolerated HD yesterday using permcath good appetite no fever or chills Objective - Vital Signs/Intake and Output Vital Signs (last 24 hours): Temp Pulse Resp BP Pulse Ox 98.3 F 82 20 154/82 H 96 10/02/18 23:13 10/02/18 23:13 10/02/18 23:13 10/02/18 23:13 10/02/18 23:13 Intake and Output: 10/03/18 10/03/18 06:59 18:59 Intake Total 300 Balance 300 - Medications Medications: Current Medications Albuterol/Ipratropium (Duoneb 3 Mg/0.5 Mg (3 Ml) Ud) 3 ml INH RQ6 PRN PRN Reason: Shortness of Breath Last Admin: 10/02/18 08:53 Dose: 3 ml Calcium Acetate (Phoslo) 2,001 mg PO TIDCC [facility] Last Admin: 10/02/18 17:30 Dose: 2,001 mg Diphenhydramine HCl (Benadryl) 25 mg PO Q12H PRN PRN Reason: Itching / Pruritus Last Admin: 10/03/18 00:50 Dose: 25 mg Docusate Sodium (Colace) 100 mg PO TID [facility] Last Admin: 10/02/18 17:30 Dose: 100 mg Ferric Sodium Gluconate Complex (Ferrlecit) 125 mg IVPB DAILY [facility] Stop: 10/03/18 10:01 Last Admin: 10/02/18 12:15 Dose: 125 mg Heparin Sodium (Porcine) (Heparin) 5,000 units SC Q8 [facility] Last Admin: 10/03/18 05:20 Dose: 5,000 units Ipratropium [place] (Atrovent) 0.5 mg IH RQ6 [facility] Last Admin: 10/03/18 03:02 Dose: Not Given Loratadine (Claritin) 10 mg PO DAILY [facility] Last Admin: 10/02/18 10:41 Dose: Not Given Metoprolol Succinate (Toprol Xl) 50 mg PO DAILY [facility] Last Admin: 10/02/18 10:42 Dose: Not Given Pantoprazole Sodium (Protonix Ec Tab) 40 mg PO DAILY [facility] Last Admin: 10/02/18 10:42 Dose: Not Given Tamsulosin HCl (Flomax) 0.4 mg PO DAILY [facility] Last Admin: 10/02/18 10:41 Dose: Not Given - Labs Labs: 10/02/18 10:38 10/02/18 10:38 PT 11.8 SECONDS (9.7-12.2) 09/26/18 19:45 INR 1.1 09/26/18 19:45 APTT 35 SECONDS (21-34) H 09/26/18 19:45 - Constitutional Appears: Non-toxic, No Acute Distress - Head Exam Head Exam: ATRAUMATIC, NORMAL INSPECTION - Eye Exam Eye Exam: EOMI - ENT Exam ENT Exam: Mucous Membranes Moist - Neck Exam Neck Exam: Full ROM. absent: Lymphadenopathy - Respiratory Exam Respiratory Exam: NORMAL BREATHING PATTERN. absent: Accessory Muscle Use - Cardiovascular Exam Cardiovascular Exam: REGULAR RHYTHM. absent: Rubs - GI/Abdominal Exam GI & Abdominal Exam: Distended, Soft. absent: Tenderness - Extremities Exam Extremities Exam: absent: Pedal Edema Additional comments: left upper extremity swelling - Neurological Exam Neurological Exam: Alert, Oriented x3 Assessment and Plan - Assessment and Plan (Free Text) Assessment: HD in am await placement stable from renal
[2018-10-03] MEDS: Albuterol-Ipratrop 3 mg / 0.5 (3 ml) UD INH PRN ×2 (09:15→13:57)
[2018-10-03] MEDS: Metoprolol Succinate 50 mg XL Tab PO SCH (10:19)
[2018-10-03] MEDS: Pantoprazole 40 mg EC Tab PO SCH (10:19)
[2018-10-03] MEDS: Ferric Sodium Gluconat Complex 62.5 mg/5 ml Vial IVPB SCH (10:19)
[2018-10-03 11:15] LABS: BASO % 0.7 % (0.0-2.0); EOS # 0.3 K/uL (0.0-0.7); EOS % 11.5 % (0.0-4.0); HEMOGLOBIN 10.5 g/dL (12.0-18.0); LYMPH # 0.4 K/uL (1.0-4.3); LYMPH % 16.2 % (20.0-40.0); MEAN CELL VOLUME 92.1 fL (80.0-94.0); MEAN CORPUSCULAR HEMOGLOBIN 30.9 pg (27.0-31.0); MEAN CORPUSCULAR HGB CONC 33.5 g/dL (33.0-37.0); MEAN PLATELET VOLUME 11.5 fL (7.2-11.7); MONO # 0.4 K/uL (0.0-0.8); MONO % 14.8 % (0.0-10.0); NEUT # 1.4 K/uL (1.8-7.0); NEUT % 56.8 % (50.0-75.0); NRBC % 0.1 % (0.0-2.0); RBC 3.41 Mil/uL (4.40-5.90); RED CELL DISTRIBUTION WIDTH 16.9 % (11.5-14.5); WHITE BLOOD COUNT 2.5 K/uL (4.8-10.8)
[2018-10-03 11:53] LABS: ALB/GLOB RATIO 1.9 (1.0-2.1); ALBUMIN 3.8 g/dL (3.5-5.0); CALCIUM 9.6 mg/dl (8.6-10.4)
[2018-10-04] MEDS: Ipratropium 0.02% Inhal Soln (0.5 mg/2.5 ml) UD IH SCH ×4 (02:13→19:30)
--- NOTE | 2018-10-04 07:01 | CP.PCM.PN ---
<Vita King - Last Filed: 10/04/18 16:56> Subjective - Date & Time of Evaluation Date of Evaluation: 10/04/18 Time of Evaluation: 07:01 - Subjective Subjective: PGY-1 Vita King D.O. Medicine progress note for Dr. Landry's service: Patient was seen and examined this morning. Patient has no new complaints. Itching present but improved. Explained again that we are still waiting for dialysis outpatient placement. Objective - Vital Signs/Intake and Output Vital Signs (last 24 hours): Temp Pulse Resp BP Pulse Ox 98.1 F 78 20 167/77 H 96 10/04/18 00:00 10/04/18 00:00 10/04/18 00:00 10/04/18 00:00 10/04/18 00:00 Intake and Output: 10/04/18 10/04/18 06:59 18:59 Intake Total 300 Balance 300 - Medications Medications: Current Medications Albuterol/Ipratropium (Duoneb 3 Mg/0.5 Mg (3 Ml) Ud) 3 ml INH RQ6 PRN PRN Reason: Shortness of Breath Last Admin: 10/03/18 13:57 Dose: 3 ml Calcium Acetate (Phoslo) 2,001 mg PO TIDCC [facility] Last Admin: 10/03/18 17:15 Dose: 2,001 mg Diphenhydramine HCl (Benadryl) 25 mg PO Q12H PRN PRN Reason: Itching / Pruritus Last Admin: 10/03/18 00:50 Dose: 25 mg Docusate Sodium (Colace) 100 mg PO TID [facility] Last Admin: 10/03/18 17:15 Dose: 100 mg Heparin Sodium (Porcine) (Heparin) 5,000 units SC Q8 [facility] Last Admin: 10/03/18 21:04 Dose: 5,000 units Ipratropium [place] (Atrovent) 0.5 mg IH RQ6 [facility] Last Admin: 10/04/18 02:13 Dose: Not Given Loratadine (Claritin) 10 mg PO DAILY [facility] Last Admin: 10/03/18 10:19 Dose: 10 mg Metoprolol Succinate (Toprol Xl) 50 mg PO DAILY [facility] Last Admin: 10/03/18 10:19 Dose: 50 mg Pantoprazole Sodium (Protonix Ec Tab) 40 mg PO DAILY [facility] Last Admin: 10/03/18 10:19 Dose: 40 mg Tamsulosin HCl (Flomax) 0.4 mg PO DAILY [facility] Last Admin: 10/03/18 10:19 Dose: 0.4 mg - Labs Labs: 10/03/18 11:09 10/03/18 11:09 PT 11.8 SECONDS (9.7-12.2) 09/26/18 19:45 INR 1.1 09/26/18 19:45 APTT 35 SECONDS (21-34) H 09/26/18 19:45 - Additional Findings Additional findings: - Constitutional Appears: Non-toxic, No Acute Distress - Head Exam Head Exam: ATRAUMATIC, NORMAL INSPECTION - Eye Exam Eye Exam: EOMI, Normal appearance - ENT Exam ENT Exam: Mucous Membranes Moist - Respiratory Exam Respiratory Exam: Clear to Ausculation Bilateral, NORMAL BREATHING PATTERN - Cardiovascular Exam Cardiovascular Exam: RRR, +S1, +S2 Additional comments: Permacath on L chest - GI/Abdominal Exam GI & Abdominal Exam: Soft. absent: Distended, Tenderness - Extremities Exam Extremities Exam: absent: Pedal Edema, Tenderness Additional comments: LUE nonpitting edema LUE AVF with audible bruit, thrill not palpated - Back Exam Back Exam: NORMAL INSPECTION - Neurological Exam Neurological Exam: Alert, Awake, CN II-XII Intact, Oriented x3 - Psychiatric Exam Psychiatric exam: Normal Affect, Normal Mood - Skin Skin Exam: Normal Color, Warm. absent: Erythema, Rash, Urticaria Assessment and Plan - Assessment and Plan (Free Text) Assessment: Patient is a 63 yo male with ESRD on HD, HTN, h/o lymphoma s/p chemotherapy, COPD, and BPH who presented for urgent dialysis. Patient was previously receiving dialysis as an outpatient; however, he went to [place] for 3 weeks without telling the dialysis center, and he lost his spot. Patient also lost his apartment. Patient has a malfunctioning AVF in the left arm, and he is currently receiving HD via permacath. Vascular surgery was consulted and performed a fistulogram without any intervention. Patient is pending dialysis placement. Plan: End stage renal disease on hemodialysis, acute on chronic - BUN 64, Cr 10.3 on admission - D-dimer 799 - BNP 5230 - PTH 423--> 291 - HD on TTS via L-sided permacath - Ferrlecit 125 mg IV daily - Phoslo 1334 mg PO TID - Nephrology consulted ([place])- HD TTS - CM/SW consulted- pending HD placement, [facility] info sent to [facility] (patient's previous HD location) Pruritus 2/2 hyperphosphatemia, acute, improving - Continue HD as per nephro - Phoslo 1334 mg PO TID - Benadryl 25 mg PO Q12H PRN - Claritin 10 mg PO daily Malfunctioning AVF of LUE, chronic - Fistulogram on 09/28 without intervention - Vascular surgery consulted ([place])- fistulogram 09/28, will need balloon or stent - f/u outpatient with patient's [facility] vasc surgeon Dr. Huber Hypertension, chronic - Vitals Q6H - Metoprolol succinate 50 mg PO daily Chronic obstructive pulmonary disease, chronic - Patient with elevated eosinophils - IgE wnl - Atrovent 0.5 mg Q6H - Duoneb Q6H PRN Benign prostatic hypertrophy, chronic - Flomax 0.4 mg PO daily Pancytopenia with h/o Lymphoma s/p chemotherapy, chronic, stable - Continue to monitor CBC on TTS with HD - f/u outpatient with patient's hem/onc in [facility] Ppx: VTE: SCDs, Heparin 5000u SC Q8H GI: Protonix 40 mg PO daily Diet: Renal Colace 100 mg PO TID Code status: full code Labs TTS with HD Dispo: Pending outpatient HD placement. Patient will need to f/u outpatient with his vascular surgeon, Dr. Huber, at [facility] for AVF malfunction. Patient will also need to f/u with oncologist in [facility] to assess lymphoma status. Case was discussed with attending, Dr. Landry. <Dena Landry V - Last Filed: 10/06/18 09:30> Objective - Vital Signs/Intake and Output Vital Signs (last 24 hours): Temp Pulse Resp BP Pulse Ox 97.5 F L 78 20 159/78 H 98 10/06/18 08:00 10/06/18 08:00 10/06/18 08:00 10/06/18 08:00 10/06/18 08:00 Intake and Output: 10/06/18 10/06/18 06:59 18:59 Intake Total 420 Balance 420 - Medications Medications: Current Medications Albuterol/Ipratropium (Duoneb 3 Mg/0.5 Mg (3 Ml) Ud) 3 ml INH RQ6 PRN PRN Reason: Shortness of Breath Last Admin: 10/03/18 13:57 Dose: 3 ml Calcium Acetate (Phoslo) 2,001 mg PO TIDCC [facility] Last Admin: 10/06/18 07:53 Dose: 2,001 mg Diphenhydramine HCl (Benadryl) 25 mg PO Q12H PRN PRN Reason: Itching / Pruritus Last Admin: 10/04/18 13:17 Dose: 25 mg Docusate Sodium (Colace) 100 mg PO TID [facility] Last Admin: 10/05/18 17:23 Dose: 100 mg Heparin Sodium (Porcine) (Heparin) 5,000 units SC Q8 [facility] Last Admin: 10/06/18 05:17 Dose: 5,000 units Ipratropium [place] (Atrovent) 0.5 mg IH RQ6 [facility] Last Admin: 10/06/18 08:18 Dose: 0.5 mg Loratadine (Claritin) 10 mg PO DAILY [facility] Last Admin: 10/05/18 10:10 Dose: 10 mg Metoprolol Succinate (Toprol Xl) 50 mg PO DAILY [facility] Last Admin: 10/05/18 10:09 Dose: 50 mg Pantoprazole Sodium (Protonix Ec Tab) 40 mg PO DAILY [facility] Last Admin: 10/05/18 10:09 Dose: 40 mg Tamsulosin HCl (Flomax) 0.4 mg PO DAILY [facility] Last Admin: 10/05/18 10:10 Dose: 0.4 mg - Labs Labs: 10/04/18 14:39 10/04/18 14:39 PT 11.8 SECONDS (9.7-12.2) 09/26/18 19:45 INR 1.1 09/26/18 19:45 APTT 35 SECONDS (21-34) H 09/26/18 19:45 Attending/Attestation - Attestation I have personally seen and examined this patient.: Yes I have fully participated in the care of the patient.: Yes I have reviewed all pertinent clinical information, including history, physical exam and plan: Yes Notes (Text): This is late computer entry for 10/04/18. Patient seen, examined and case discussed with day-time resident. Agree with the assessment and plan as written by the resident. Patient is awaiting placement for outpatient dialysis. When I spoke with case management, noted it may take up to 2 weeks for placement given the insurance.
--- NOTE | 2018-10-04 09:39 | CP.PCM.PN ---
Subjective - Date & Time of Evaluation Date of Evaluation: 10/04/18 Time of Evaluation: 09:36 - Subjective Subjective: alert, no new complaint no nausea, vomiting, fevers, chills, SOB, CPs labs reviewed- same low wbc, plats awaiting placement Objective - Vital Signs/Intake and Output Vital Signs (last 24 hours): Temp Pulse Resp BP Pulse Ox 97.7 F 97 H 20 110/61 97 10/04/18 07:00 10/04/18 07:00 10/04/18 07:00 10/04/18 07:00 10/04/18 07:00 Intake and Output: 10/04/18 10/04/18 06:59 18:59 Intake Total 300 Balance 300 - Medications Medications: Current Medications Albuterol/Ipratropium (Duoneb 3 Mg/0.5 Mg (3 Ml) Ud) 3 ml INH RQ6 PRN PRN Reason: Shortness of Breath Last Admin: 10/03/18 13:57 Dose: 3 ml Calcium Acetate (Phoslo) 2,001 mg PO TIDCC [facility] Last Admin: 10/04/18 08:43 Dose: 2,001 mg Diphenhydramine HCl (Benadryl) 25 mg PO Q12H PRN PRN Reason: Itching / Pruritus Last Admin: 10/03/18 00:50 Dose: 25 mg Docusate Sodium (Colace) 100 mg PO TID [facility] Last Admin: 10/03/18 17:15 Dose: 100 mg Heparin Sodium (Porcine) (Heparin) 5,000 units SC Q8 [facility] Last Admin: 10/03/18 21:04 Dose: 5,000 units Ipratropium [place] (Atrovent) 0.5 mg IH RQ6 [facility] Last Admin: 10/04/18 08:49 Dose: 0.5 mg Loratadine (Claritin) 10 mg PO DAILY [facility] Last Admin: 10/03/18 10:19 Dose: 10 mg Metoprolol Succinate (Toprol Xl) 50 mg PO DAILY [facility] Last Admin: 10/03/18 10:19 Dose: 50 mg Pantoprazole Sodium (Protonix Ec Tab) 40 mg PO DAILY [facility] Last Admin: 10/03/18 10:19 Dose: 40 mg Tamsulosin HCl (Flomax) 0.4 mg PO DAILY [facility] Last Admin: 04/24/19 10:19 Dose: 0.4 mg - Labs Labs: 10/03/18 11:09 10/03/18 11:09 PT 11.8 SECONDS (9.7-12.2) 09/26/18 19:45 INR 1.1 09/26/18 19:45 APTT 35 SECONDS (21-34) H 09/26/18 19:45 - Constitutional Appears: No Acute Distress, Chronically Ill - Head Exam Head Exam: ATRAUMATIC, NORMAL INSPECTION - Eye Exam Eye Exam: EOMI, Normal appearance - Neck Exam Neck Exam: Normal Inspection. absent: Tenderness - Respiratory Exam Respiratory Exam: Clear to Ausculation Bilateral, NORMAL BREATHING PATTERN - Cardiovascular Exam Cardiovascular Exam: REGULAR RHYTHM, +S1 - GI/Abdominal Exam GI & Abdominal Exam: Soft. absent: Tenderness - Extremities Exam Extremities Exam: Normal Inspection. absent: Tenderness - Neurological Exam Neurological Exam: Awake, CN II-XII Intact - Skin Skin Exam: Dry, Warm Assessment and Plan (1) Failure of surgically constructed arteriovenous fistula Status: Acute (2) Essential hypertension Status: Acute (3) Secondary hyperparathyroidism Status: Acute (4) COPD (chronic obstructive pulmonary disease) with chronic bronchitis Status: Chronic (5) End-stage renal disease Status: Chronic - Assessment and Plan (Free Text) Plan: dialysis today via permcath will need to seek surgical eval left arm access with original vascular surgeon TTS dialysis schedule for now needs dialysis placement
[2018-10-04] MEDS: Pantoprazole 40 mg EC Tab PO SCH (10:04)
[2018-10-04] MEDS: Metoprolol Succinate 50 mg XL Tab PO SCH (10:07)
[2018-10-04 14:43] LABS: BASO % 0.8 % (0.0-2.0); EOS # 0.3 K/uL (0.0-0.7); EOS % 11.9 % (0.0-4.0); HEMOGLOBIN 10.6 g/dL (12.0-18.0); LYMPH # 0.3 K/uL (1.0-4.3); LYMPH % 13.2 % (20.0-40.0); MEAN CELL VOLUME 92.7 fL (80.0-94.0); MEAN CORPUSCULAR HEMOGLOBIN 30.9 pg (27.0-31.0); MEAN CORPUSCULAR HGB CONC 33.3 g/dL (33.0-37.0); MEAN PLATELET VOLUME 11.3 fL (7.2-11.7); MONO # 0.2 K/uL (0.0-0.8); MONO % 10.2 % (0.0-10.0); NEUT # 1.4 K/uL (1.8-7.0); NEUT % 63.9 % (50.0-75.0); NRBC % 0.1 % (0.0-2.0); RBC 3.41 Mil/uL (4.40-5.90); RED CELL DISTRIBUTION WIDTH 17.1 % (11.5-14.5); WHITE BLOOD COUNT 2.1 K/uL (4.8-10.8)
[2018-10-04 15:03] LABS: ALBUMIN 3.9 g/dL (3.5-5.0); CALCIUM 9.5 mg/dl (8.6-10.4)
[2018-10-05] MEDS: Ipratropium 0.02% Inhal Soln (0.5 mg/2.5 ml) UD IH SCH ×4 (03:00→19:53)
[2018-10-05] MEDS: Metoprolol Succinate 50 mg XL Tab PO SCH (10:09)
[2018-10-05] MEDS: Pantoprazole 40 mg EC Tab PO SCH (10:09)
--- NOTE | 2018-10-05 13:43 | CP.PCM.PN ---
Subjective - Date & Time of Evaluation Date of Evaluation: 10/05/18 Time of Evaluation: 13:41 - Subjective Subjective: stable dialysis 10/04 feels better labs reviewed Objective - Vital Signs/Intake and Output Vital Signs (last 24 hours): Temp Pulse Resp BP Pulse Ox 97.6 F 82 20 147/81 98 10/05/18 08:00 10/05/18 08:00 10/05/18 08:00 10/05/18 08:00 10/05/18 08:00 Intake and Output: 10/05/18 10/05/18 06:59 18:59 Intake Total 400 Balance 400 - Medications Medications: Current Medications Albuterol/Ipratropium (Duoneb 3 Mg/0.5 Mg (3 Ml) Ud) 3 ml INH RQ6 PRN PRN Reason: Shortness of Breath Last Admin: 10/03/18 13:57 Dose: 3 ml Calcium Acetate (Phoslo) 2,001 mg PO TIDCC [facility] Last Admin: 10/05/18 07:56 Dose: 2,001 mg Diphenhydramine HCl (Benadryl) 25 mg PO Q12H PRN PRN Reason: Itching / Pruritus Last Admin: 10/04/18 13:17 Dose: 25 mg Docusate Sodium (Colace) 100 mg PO TID [facility] Last Admin: 10/05/18 10:10 Dose: 100 mg Heparin Sodium (Porcine) (Heparin) 5,000 units SC Q8 [facility] Last Admin: 10/05/18 06:38 Dose: 5,000 units Ipratropium [place] (Atrovent) 0.5 mg IH RQ6 [facility] Last Admin: 10/05/18 08:23 Dose: 0.5 mg Loratadine (Claritin) 10 mg PO DAILY [facility] Last Admin: 10/05/18 10:10 Dose: 10 mg Metoprolol Succinate (Toprol Xl) 50 mg PO DAILY [facility] Last Admin: 10/05/18 10:09 Dose: 50 mg Pantoprazole Sodium (Protonix Ec Tab) 40 mg PO DAILY [facility] Last Admin: 10/05/18 10:09 Dose: 40 mg Tamsulosin HCl (Flomax) 0.4 mg PO DAILY [facility] Last Admin: 10/05/18 10:10 Dose: 0.4 mg - Labs Labs: 10/04/18 14:39 10/04/18 14:39 PT 11.8 SECONDS (9.7-12.2) 09/26/18 19:45 INR 1.1 09/26/18 19:45 APTT 35 SECONDS (21-34) H 09/26/18 19:45 - Constitutional Appears: No Acute Distress, Chronically Ill - Head Exam Head Exam: ATRAUMATIC, NORMAL INSPECTION - Eye Exam Eye Exam: EOMI, Normal appearance - Neck Exam Neck Exam: Normal Inspection. absent: Tenderness - Respiratory Exam Respiratory Exam: Clear to Ausculation Bilateral, NORMAL BREATHING PATTERN - Cardiovascular Exam Cardiovascular Exam: REGULAR RHYTHM, +S1 - GI/Abdominal Exam GI & Abdominal Exam: Soft. absent: Tenderness - Extremities Exam Extremities Exam: Normal Inspection. absent: Pedal Edema - Neurological Exam Neurological Exam: Awake, CN II-XII Intact - Skin Skin Exam: Dry, Warm Assessment and Plan (1) Failure of surgically constructed arteriovenous fistula Status: Acute (2) Essential hypertension Status: Acute (3) Secondary hyperparathyroidism Status: Acute (4) COPD (chronic obstructive pulmonary disease) with chronic bronchitis Status: Chronic (5) End-stage renal disease Status: Chronic - Assessment and Plan (Free Text) Plan: dialysis TTS Will need vascular follow up when discharged for Av access await placement
--- NOTE | 2018-10-06 00:21 | CP.PCM.PN ---
<Toby Barroso - Last Filed: 10/06/18 00:19> Subjective - Date & Time of Evaluation Date of Evaluation: 10/06/18 Time of Evaluation: 00:19 - Subjective Subjective: Medicine Progress note for Dr. Landry's service S/E at bedside Reports sob mild at certain times but not currently Denies fevers, chills, chest pain, sob, n.v, constipation or diarrhea, and dysuria Objective - Vital Signs/Intake and Output Vital Signs (last 24 hours): Temp Pulse Resp BP Pulse Ox 98.1 F 80 20 158/71 H 97 10/05/18 23:09 10/05/18 23:09 10/05/18 23:09 10/05/18 23:09 10/05/18 23:09 Intake and Output: 10/05/18 10/06/18 18:59 06:59 Intake Total 500 Balance 500 - Medications Medications: Current Medications Albuterol/Ipratropium (Duoneb 3 Mg/0.5 Mg (3 Ml) Ud) 3 ml INH RQ6 PRN PRN Reason: Shortness of Breath Last Admin: 10/03/18 13:57 Dose: 3 ml Calcium Acetate (Phoslo) 2,001 mg PO TIDCC [facility] Last Admin: 10/05/18 17:23 Dose: 2,001 mg Diphenhydramine HCl (Benadryl) 25 mg PO Q12H PRN PRN Reason: Itching / Pruritus Last Admin: 10/04/18 13:17 Dose: 25 mg Docusate Sodium (Colace) 100 mg PO TID [facility] Last Admin: 10/05/18 17:23 Dose: 100 mg Heparin Sodium (Porcine) (Heparin) 5,000 units SC Q8 [facility] Last Admin: 10/05/18 21:34 Dose: 5,000 units Ipratropium [place] (Atrovent) 0.5 mg IH RQ6 [facility] Last Admin: 10/05/18 19:53 Dose: 0.5 mg Loratadine (Claritin) 10 mg PO DAILY [facility] Last Admin: 10/05/18 10:10 Dose: 10 mg Metoprolol Succinate (Toprol Xl) 50 mg PO DAILY [facility] Last Admin: 10/05/18 10:09 Dose: 50 mg Pantoprazole Sodium (Protonix Ec Tab) 40 mg PO DAILY [facility] Last Admin: 10/05/18 10:09 Dose: 40 mg Tamsulosin HCl (Flomax) 0.4 mg PO DAILY [facility] Last Admin: 10/05/18 10:10 Dose: 0.4 mg - Labs Labs: 10/04/18 14:39 10/04/18 14:39 PT 11.8 SECONDS (9.7-12.2) 09/26/18 19:45 INR 1.1 09/26/18 19:45 APTT 35 SECONDS (21-34) H 09/26/18 19:45 - Additional Findings Additional findings: - Constitutional Appears: Non-toxic, No Acute Distress - Head Exam Head Exam: ATRAUMATIC, NORMAL INSPECTION - Eye Exam Eye Exam: EOMI, Normal appearance - ENT Exam ENT Exam: Mucous Membranes Moist - Respiratory Exam Respiratory Exam: Clear to Ausculation Bilateral, NORMAL BREATHING PATTERN - Cardiovascular Exam Cardiovascular Exam: RRR, +S1, +S2 Additional comments: Permacath on L chest - GI/Abdominal Exam GI & Abdominal Exam: Soft. absent: Distended, Tenderness - Extremities Exam Extremities Exam: absent: Pedal Edema, Tenderness Additional comments: LUE nonpitting edema LUE AVF with audible bruit, thrill not palpated - Back Exam Back Exam: NORMAL INSPECTION - Neurological Exam Neurological Exam: Alert, Awake, CN II-XII Intact, Oriented x3 - Psychiatric Exam Psychiatric exam: Normal Affect, Normal Mood - Skin Skin Exam: Normal Color, Warm. absent: Erythema, Rash, Urticaria Assessment and Plan - Assessment and Plan (Free Text) Assessment: Patient is a 63 yo male with ESRD on HD, HTN, h/o lymphoma s/p chemotherapy, COPD, and BPH who presented for urgent dialysis. Patient was previously receiving dialysis as an outpatient; however, he went to [place] for 3 weeks without telling the dialysis center, and he lost his spot. Patient also lost his apartment. Patient has a malfunctioning AVF in the left arm, and he is currently receiving HD via permacath. Vascular surgery was consulted and performed a fistulogram without any intervention. Patient is pending dialysis placement. Plan: End stage renal disease on hemodialysis, acute on chronic - BUN 64, Cr 10.3 on admission - D-dimer 799 - BNP 5230 - PTH 423--> 291 - HD on TTS via L-sided permacath - Ferrlecit 125 mg IV daily - Phoslo 1334 mg PO TID - Nephrology consulted (Codey)- HD TTS - CM/SW consulted- pending HD placement, patient's info sent to [facility] (patient's previous HD location) Pruritus 2/2 hyperphosphatemia, acute, improving - Continue HD as per nephro - Phoslo 1334 mg PO TID - Benadryl 25 mg PO Q12H PRN - Claritin 10 mg PO daily Malfunctioning AVF of LUE, chronic - Fistulogram on 09/28 without intervention - Vascular surgery consulted (Agapito)- fistulogram 09/28, will need balloon or stent - f/u outpatient with patient's [facility] vasc surgeon Dr. Huber Hypertension, chronic - Vitals Q6H - Metoprolol succinate 50 mg PO daily Chronic obstructive pulmonary disease, chronic - Patient with elevated eosinophils - IgE wnl - Atrovent 0.5 mg Q6H - Duoneb Q6H PRN Benign prostatic hypertrophy, chronic - Flomax 0.4 mg PO daily Pancytopenia with h/o Lymphoma s/p chemotherapy, chronic, stable - Continue to monitor CBC on TTS with HD - f/u outpatient with patient's hem/onc in [facility]S INCLUDE [facility] BEDS AT THE [facility] Ppx: VTE: SCDs, Heparin 5000u SC Q8H GI: Protonix 40 mg PO daily Diet: Renal Colace 100 mg PO TID Code status: full code Labs TTS with HD Dispo: Pending outpatient HD placement. Patient will need to f/u outpatient with his vascular surgeon, Dr. Huber, at [facility] for AVF malfunction. Patient will also need to f/u with oncologist in COUNTS INCLUDE 234 BEDS AT THE [facility] to assess lymphoma status. <Dena Landry V - Last Filed: 10/06/18 09:43> Objective - Vital Signs/Intake and Output Vital Signs (last 24 hours): Temp Pulse Resp BP Pulse Ox 97.5 F L 78 20 159/78 H 98 10/06/18 08:00 10/06/18 08:00 10/06/18 08:00 10/06/18 08:00 10/06/18 08:00 Intake and Output: 10/06/18 10/06/18 06:59 18:59 Intake Total 420 Balance 420 - Medications Medications: Current Medications Albuterol/Ipratropium (Duoneb 3 Mg/0.5 Mg (3 Ml) Ud) 3 ml INH RQ6 PRN PRN Reason: Shortness of Breath Last Admin: 10/03/18 13:57 Dose: 3 ml Calcium Acetate (Phoslo) 2,001 mg PO TIDCC [facility] Last Admin: 10/06/18 07:53 Dose: 2,001 mg Diphenhydramine HCl (Benadryl) 25 mg PO Q12H PRN PRN Reason: Itching / Pruritus Last Admin: 10/04/18 13:17 Dose: 25 mg Docusate Sodium (Colace) 100 mg PO TID [facility] Last Admin: 10/05/18 17:23 Dose: 100 mg Heparin Sodium (Porcine) (Heparin) 5,000 units SC Q8 [facility] Last Admin: 10/06/18 05:17 Dose: 5,000 units Ipratropium [place] (Atrovent) 0.5 mg IH RQ6 [facility] Last Admin: 10/06/18 08:18 Dose: 0.5 mg Loratadine (Claritin) 10 mg PO DAILY [facility] Last Admin: 10/05/18 10:10 Dose: 10 mg Metoprolol Succinate (Toprol Xl) 50 mg PO DAILY [facility] Last Admin: 10/05/18 10:09 Dose: 50 mg Pantoprazole Sodium (Protonix Ec Tab) 40 mg PO DAILY [facility] Last Admin: 10/05/18 10:09 Dose: 40 mg Tamsulosin HCl (Flomax) 0.4 mg PO DAILY [facility] Last Admin: 10/05/18 10:10 Dose: 0.4 mg - Labs Labs: 10/04/18 14:39 10/04/18 14:39 PT 11.8 SECONDS (9.7-12.2) 09/26/18 19:45 INR 1.1 09/26/18 19:45 APTT 35 SECONDS (21-34) H 09/26/18 19:45 Attending/Attestation - Attestation I have personally seen and examined this patient.: Yes I have fully participated in the care of the patient.: Yes I have reviewed all pertinent clinical information, including history, physical exam and plan: Yes Notes (Text): Patient seen, examined case discussed with medical asst. Patient seen this morning. Patient reports mild itchiness.. Patient denies acute complaints. I asked the patient if he has spoken with his outpatient vascular surgery to set up appointment he reports he forgot I did indicate to him it is very important to establish that contact in terms of the balloon stenting he will need for his left arm access for outpatient dialysis placement. Case management is on the case. Patient is due for dialysis this morning. Update assessment and plan noted below Assessment/Plan 1. End stage renal disease on hemodialysis, acute on chronic Assessment/plan * Pending outpatient placement. Patient went to [facility] without informing dialysis unit lost his placement. * Dr. Alegre's group on board help appreciated. * Dialysis while inpatient Monday * PhosLo 2001 mg p.o. 3 times daily cc * Ferrlecit completed on October 03, 2018 * Case management attempting to find outpatient placement 2. Pruritus 2/2 hyperphosphatemia, acute, improving Assessment/plan * Monitor phosphorus levels * Patient is on 2001 mg p.o. 3 times daily cc * Benadryl 25 mg p.o. every 12 as needed for itchiness * Claritin 10 mg p.o. once a day 3. Malfunctioning AVF of LUE, chronic Assessment/plan * Vascular surgery Dr. Altman on case * Per operative note from September 28, 2018 [place] will help to mobilize skin. Angioplasty and stenting will have to be carried out on the innominate vein stenosis and then to oral in the meantime the catheter will help decrease the leg to allow this fistula to mature milligrams of swelling in his arm. Inasmuch the surgery was done at [facility] previously by another surgeon I think that when he is over his acute illness he can be transferred back to that location will see him as outpatient. We have discussed with patient multiple times that he needs to follow-up with his * Primary surgeon Dr. Huber is located adjacent to make a follow-up outpatient appointment given that he is also aware that angioplasty is recommended with his surgeon whom did the initial establishment for the left upper arm. Patient has not made his outpatient appointment yet. Did remind him past couple of days as well as I did remind him again at bedside today.. 4. Hypertension, chronic Assessment/Plan * Patient is in-house patient dialysis Monday and Saturdays * Patient is on Toprol-XL 50 mg once a day * Modify diet to include renal dialysis 2 g sodium * Continue to monitor vital signs 5. History of chronic obstructive pulmonary disease, chronic Assessment/plan * Patient is not in acute exacerbation. Patient is reminded in terms of refraining from tobacco use when he is discharged. As well as any hookah. * Patient is on DuoNeb 3 mL inhaled every 6 hours as needed * Atrovent 0.5 mg inhaled every 6 hours * Patient does not need steroid therapy at this time. * Patient is also on Claritin as well 6. Benign prostatic hypertrophy, chronic Assessment/plan * Flomax 0.4 mg PO daily 7. Pancytopenia with h/o Lymphoma s/p chemotherapy, chronic, stable Assessment/plan * Patient has multiple with his heme oncologist at [place] for the past couple years. Patient is not aware that he should follow-up at least once or as needed. Patient has been previously seen by heme oncologist for the past 2 years here in the hospital. He is reminded that he should lose follow-up with his own personal heme-onc in light of his prior history of lymphoma. * Noted per EMR review that it is in remission 8. Ppx: * VTE: SCDs, Heparin 5000u SC Q8H * GI: Pepcid 20mg PO daily * Diet: Renal * Colace 100 mg PO TID * Code status: full code Labs TTS with HD Dispo: Pending outpatient HD placement. Patient will need to f/u outpatient with his vascular surgeon, Dr. Huber, at [facility] for AVF malfunction. Patient will also need to f/u with oncologist in COUNTS INCLUDE 234 BEDS AT THE [facility] to assess lymphoma status.
[2018-10-06] MEDS: Ipratropium 0.02% Inhal Soln (0.5 mg/2.5 ml) UD IH SCH ×4 (01:22→20:33)
[2018-10-06 09:38] LABS: BASO % 0.8 % (0.0-2.0); EOS # 0.4 K/uL (0.0-0.7); EOS % 14.4 % (0.0-4.0); HEMOGLOBIN 10.7 g/dL (12.0-18.0); LYMPH # 0.4 K/uL (1.0-4.3); LYMPH % 14.3 % (20.0-40.0); MEAN CELL VOLUME 93.4 fL (80.0-94.0); MEAN CORPUSCULAR HGB CONC 33.1 g/dL (33.0-37.0); MONO # 0.3 K/uL (0.0-0.8); MONO % 12.1 % (0.0-10.0); NEUT # 1.5 K/uL (1.8-7.0); NEUT % 58.4 % (50.0-75.0); RBC 3.45 Mil/uL (4.40-5.90); RED CELL DISTRIBUTION WIDTH 16.5 % (11.5-14.5); WHITE BLOOD COUNT 2.6 K/uL (4.8-10.8)
--- NOTE | 2018-10-06 09:52 | CP.PCM.PN ---
Subjective - Date & Time of Evaluation Date of Evaluation: 10/06/18 Time of Evaluation: 09:50 - Subjective Subjective: Seen in hd unit on dialysis Comfortable Offers no complaints qb 300 Nof/c No cp or palp No sob or cough 10 point ros negative Objective - Vital Signs/Intake and Output Vital Signs (last 24 hours): Temp Pulse Resp BP Pulse Ox 97.5 F L 78 20 159/78 H 98 10/06/18 08:00 10/06/18 08:00 10/06/18 08:00 10/06/18 08:00 10/06/18 08:00 Intake and Output: 10/06/18 10/06/18 06:59 18:59 Intake Total 420 Balance 420 - Medications Medications: Current Medications Albuterol/Ipratropium (Duoneb 3 Mg/0.5 Mg (3 Ml) Ud) 3 ml INH RQ6 PRN PRN Reason: Shortness of Breath Last Admin: 10/03/18 13:57 Dose: 3 ml Calcium Acetate (Phoslo) 2,001 mg PO TIDCC [facility] Last Admin: 10/06/18 07:53 Dose: 2,001 mg Diphenhydramine HCl (Benadryl) 25 mg PO Q12H PRN PRN Reason: Itching / Pruritus Last Admin: 10/04/18 13:17 Dose: 25 mg Docusate Sodium (Colace) 100 mg PO TID [facility] Last Admin: 10/05/18 17:23 Dose: 100 mg Heparin Sodium (Porcine) (Heparin) 5,000 units SC Q8 [facility] Last Admin: 10/06/18 05:17 Dose: 5,000 units Ipratropium [place] (Atrovent) 0.5 mg IH RQ6 [facility] Last Admin: 10/06/18 08:18 Dose: 0.5 mg Loratadine (Claritin) 10 mg PO DAILY [facility] Last Admin: 10/05/18 10:10 Dose: 10 mg Metoprolol Succinate (Toprol Xl) 50 mg PO DAILY [facility] Last Admin: 10/05/18 10:09 Dose: 50 mg Pantoprazole Sodium (Protonix Ec Tab) 40 mg PO DAILY [facility] Last Admin: 10/05/18 10:09 Dose: 40 mg Tamsulosin HCl (Flomax) 0.4 mg PO DAILY [facility] Last Admin: 10/05/18 10:10 Dose: 0.4 mg - Labs Labs: 10/06/18 09:33 10/04/18 14:39 PT 11.8 SECONDS (9.7-12.2) 09/26/18 19:45 INR 1.1 09/26/18 19:45 APTT 35 SECONDS (21-34) H 09/26/18 19:45 - Constitutional Appears: Well, Non-toxic - Head Exam Head Exam: ATRAUMATIC, NORMOCEPHALIC - Eye Exam Eye Exam: EOMI, Normal appearance - ENT Exam ENT Exam: Mucous Membranes Moist, Normal Oropharynx - Neck Exam Neck Exam: absent: Lymphadenopathy, Thyromegaly - Respiratory Exam Respiratory Exam: Clear to Ausculation Bilateral. absent: Rales, Rhonchi - Cardiovascular Exam Cardiovascular Exam: +S1, +S2. absent: Rubs - GI/Abdominal Exam GI & Abdominal Exam: Soft, Normal Bowel Sounds - Neurological Exam Neurological Exam: Alert, Awake - Skin Skin Exam: Dry, Intact Assessment and Plan (1) ESRD (end stage renal disease) on dialysis Status: Chronic (2) Anemia Status: Acute (3) HTN (hypertension) Status: Acute (4) BPH (benign prostatic hyperplasia) Status: Chronic (5) COPD (chronic obstructive pulmonary disease) Status: Chronic (6) Chronic obstructive pulmonary disease Status: Chronic - Assessment and Plan (Free Text) Assessment: Tolerating dialysis well UF goal today 2800ml Monitor bp Continue current care Await placement for outpatient dialysis
[2018-10-06 10:16] LABS: ALB/GLOB RATIO 2.2 (1.0-2.1); CALCIUM 9.7 mg/dl (8.6-10.4)
[2018-10-06] MEDS: Metoprolol Succinate 50 mg XL Tab PO SCH (10:32)
[2018-10-06] MEDS: Pantoprazole 40 mg EC Tab PO SCH (10:32)
[2018-10-07] MEDS: Ipratropium 0.02% Inhal Soln (0.5 mg/2.5 ml) UD IH SCH ×4 (01:37→19:45)
[2018-10-07] MEDS: Pantoprazole 40 mg EC Tab PO SCH (09:31)
[2018-10-07] MEDS: Metoprolol Succinate 50 mg XL Tab PO SCH (09:31)
[2018-10-07] MEDS: Hydrocortisone 1% Cream (30 GM) TOP SCH ×2 (09:33→18:00)
[2018-10-08] MEDS: Ipratropium 0.02% Inhal Soln (0.5 mg/2.5 ml) UD IH SCH ×4 (02:48→19:47)
[2018-10-08] MEDS: Pantoprazole 40 mg EC Tab PO SCH (09:34)
[2018-10-08] MEDS: Metoprolol Succinate 50 mg XL Tab PO SCH (09:34)
[2018-10-08] MEDS: Hydrocortisone 1% Cream (30 GM) TOP SCH ×2 (10:13→17:13)
[2018-10-08] MEDS: guaiFENesin DM 100 mg-10 mg/5 ml UD PO PRN ×2 (10:55→21:21)
--- NOTE | 2018-10-08 12:14 | CP.PCM.PN ---
Subjective - Date & Time of Evaluation Date of Evaluation: 10/08/18 Time of Evaluation: 12:12 - Subjective Subjective: stable dialysis 10/06 appears well HTN controlled no new complaint Objective - Vital Signs/Intake and Output Vital Signs (last 24 hours): Temp Pulse Resp BP Pulse Ox 98.0 F 75 20 147/75 96 10/08/18 08:00 10/08/18 08:00 10/08/18 08:00 10/08/18 08:00 10/08/18 08:00 Intake and Output: 10/08/18 10/08/18 06:59 18:59 Intake Total 520 Balance 520 - Medications Medications: Current Medications Albuterol/Ipratropium (Duoneb 3 Mg/0.5 Mg (3 Ml) Ud) 3 ml INH RQ6 PRN PRN Reason: Shortness of Breath Last Admin: 10/03/18 13:57 Dose: 3 ml Calcium Acetate (Phoslo) 2,001 mg PO TIDCC [facility] Last Admin: 10/08/18 08:34 Dose: 2,001 mg Diphenhydramine HCl (Benadryl) 25 mg PO Q12H PRN PRN Reason: Itching / Pruritus Last Admin: 10/08/18 02:55 Dose: 25 mg Docusate Sodium (Colace) 100 mg PO TID [facility] Last Admin: 10/08/18 09:34 Dose: 100 mg Gabapentin (Neurontin) 100 mg PO TTS [facility] Guaifenesin/Dextromethorphan (Robitussin Dm) 5 ml PO Q4H PRN PRN Reason: Cough Last Admin: 10/08/18 10:55 Dose: 5 ml Hydrocortisone (Cortizone 1% Cream) 1 gm TOP BID [facility] Last Admin: 10/07/18 18:00 Dose: 1 applic Ipratropium [place] (Atrovent) 0.5 mg IH RQ6 [facility] Last Admin: 10/08/18 08:52 Dose: Not Given Loratadine (Claritin) 10 mg PO DAILY [facility] Last Admin: 10/08/18 09:35 Dose: 10 mg Metoprolol Succinate (Toprol Xl) 50 mg PO DAILY [facility] Last Admin: 10/08/18 09:34 Dose: 50 mg Pantoprazole Sodium (Protonix Ec Tab) 40 mg PO DAILY [facility] Last Admin: 10/08/18 09:34 Dose: 40 mg Tamsulosin HCl (Flomax) 0.4 mg PO DAILY [facility] Last Admin: 10/08/18 09:34 Dose: 0.4 mg - Labs Labs: 10/06/18 09:33 10/06/18 09:33 PT 11.8 SECONDS (9.7-12.2) 09/26/18 19:45 INR 1.1 09/26/18 19:45 APTT 35 SECONDS (21-34) H 09/26/18 19:45 - Constitutional Appears: No Acute Distress, Chronically Ill - Head Exam Head Exam: ATRAUMATIC, NORMAL INSPECTION - Eye Exam Eye Exam: EOMI, Normal appearance - Neck Exam Neck Exam: Normal Inspection. absent: Tenderness - Respiratory Exam Respiratory Exam: Clear to Ausculation Bilateral, NORMAL BREATHING PATTERN - Cardiovascular Exam Cardiovascular Exam: REGULAR RHYTHM, +S1 - GI/Abdominal Exam GI & Abdominal Exam: Soft. absent: Tenderness - Extremities Exam Extremities Exam: Normal Inspection. absent: Tenderness - Neurological Exam Neurological Exam: Awake, CN II-XII Intact - Skin Skin Exam: Dry, Warm Assessment and Plan (1) Failure of surgically constructed arteriovenous fistula Status: Acute (2) Essential hypertension Status: Acute (3) Secondary hyperparathyroidism Status: Acute (4) COPD (chronic obstructive pulmonary disease) with chronic bronchitis Status: Chronic (5) End-stage renal disease Status: Chronic - Assessment and Plan (Free Text) Plan: same dialysis TTS await placement
[2018-10-09] MEDS: Ipratropium 0.02% Inhal Soln (0.5 mg/2.5 ml) UD IH SCH ×2 (02:46→20:17)
--- NOTE | 2018-10-09 06:59 | CP.PCM.PN ---
<Vita King - Last Filed: 10/09/18 17:41> Subjective - Date & Time of Evaluation Date of Evaluation: 10/09/18 Time of Evaluation: 06:58 - Subjective Subjective: PGY-1 Vita King D.O. Medicine progress note for Dr. Shan Hawkins's service: Patient was seen and examined this morning. He has no new complaints. He says t he itching has improved with use of hydrocortisone cream. He is eager to obtain a dialysis spot to be discharged. Objective - Vital Signs/Intake and Output Vital Signs (last 24 hours): Temp Pulse Resp BP Pulse Ox 97.8 F 74 20 147/76 97 10/08/18 16:30 10/08/18 16:30 10/08/18 16:30 10/08/18 16:30 10/08/18 16:30 Intake and Output: 10/08/18 10/09/18 18:59 06:59 Intake Total 500 Balance 500 - Medications Medications: Current Medications Albuterol/Ipratropium (Duoneb 3 Mg/0.5 Mg (3 Ml) Ud) 3 ml INH RQ6 PRN PRN Reason: Shortness of Breath Last Admin: 10/03/18 13:57 Dose: 3 ml Calcium Acetate (Phoslo) 2,001 mg PO TIDCC [facility] Last Admin: 10/08/18 17:12 Dose: 2,001 mg Diphenhydramine HCl (Benadryl) 25 mg PO Q12H PRN PRN Reason: Itching / Pruritus Last Admin: 10/08/18 02:55 Dose: 25 mg Docusate Sodium (Colace) 100 mg PO TID [facility] Last Admin: 10/08/18 17:12 Dose: 100 mg Gabapentin (Neurontin) 100 mg PO TTS [facility] Guaifenesin/Dextromethorphan (Robitussin Dm) 5 ml PO Q4H PRN PRN Reason: Cough Last Admin: 10/08/18 21:21 Dose: 5 ml Hydrocortisone (Cortizone 1% Cream) 1 gm TOP BID [facility] Last Admin: 10/08/18 17:13 Dose: 1 applic Ipratropium [place] (Atrovent) 0.5 mg IH RQ6 [facility] Last Admin: 10/09/18 02:46 Dose: Not Given Loratadine (Claritin) 10 mg PO DAILY [facility] Last Admin: 10/08/18 09:35 Dose: 10 mg Metoprolol Succinate (Toprol Xl) 50 mg PO DAILY [facility] Last Admin: 10/08/18 09:34 Dose: 50 mg Pantoprazole Sodium (Protonix Ec Tab) 40 mg PO DAILY [facility] Last Admin: 10/08/18 09:34 Dose: 40 mg Tamsulosin HCl (Flomax) 0.4 mg PO DAILY [facility] Last Admin: 10/08/18 09:34 Dose: 0.4 mg - Labs Labs: 10/06/18 09:33 10/06/18 09:33 PT 11.8 SECONDS (9.7-12.2) 09/26/18 19:45 INR 1.1 09/26/18 19:45 APTT 35 SECONDS (21-34) H 09/26/18 19:45 - Additional Findings Additional findings: - Constitutional Appears: Non-toxic, No Acute Distress - Head Exam Head Exam: ATRAUMATIC, NORMAL INSPECTION - Eye Exam Eye Exam: EOMI, Normal appearance - ENT Exam ENT Exam: Mucous Membranes Moist - Respiratory Exam Respiratory Exam: Clear to Ausculation Bilateral, NORMAL BREATHING PATTERN - Cardiovascular Exam Cardiovascular Exam: RRR, +S1, +S2 Additional comments: Permacath on L chest - GI/Abdominal Exam GI & Abdominal Exam: Soft. absent: Distended, Tenderness - Extremities Exam Extremities Exam: absent: Pedal Edema, Tenderness Additional comments: LUE nonpitting edema LUE AVF with audible bruit, thrill not palpated - Back Exam Back Exam: NORMAL INSPECTION - Neurological Exam Neurological Exam: Alert, Awake, CN II-XII Intact, Oriented x3 - Psychiatric Exam Psychiatric exam: Normal Affect, Normal Mood - Skin Skin Exam: Normal Color, Warm. absent: Erythema, Rash, Urticaria Assessment and Plan - Assessment and Plan (Free Text) Assessment: Patient is a 63 yo male with ESRD on HD, HTN, h/o lymphoma s/p chemotherapy, COPD, and BPH who presented for urgent dialysis. Patient was previously receiving dialysis as an outpatient; however, he went to [place] for 3 weeks without telling the dialysis center, and he lost his spot. Patient also lost his apartment. Patient has a malfunctioning AVF in the left arm, and he is currently receiving HD via permacath. Vascular surgery was consulted and performed a fistulogram without any intervention. Patient is pending dialysis placement. Plan: End stage renal disease on hemodialysis, acute on chronic - BUN 64, Cr 10.3 on admission - D-dimer 799 - BNP 5230 - PTH 423--> 291 - HD on TTS via L-sided permacath - Ferrlecit 125 mg IV daily - Phoslo 2001 mg PO TID - Nephrology consulted ([place])- HD TTS - CM/SW consulted- pending HD placement, patient's info sent to [facility] (patient's previous HD location) Pruritus 2/2 hyperphosphatemia, acute, improving - Continue HD as per nephro - Phoslo 1334 mg PO TID - Benadryl 25 mg PO Q12H PRN - Claritin 10 mg PO daily - Gabapentin 100 mg PO TTS after HD - Hydrocortisone 1% cream TOP BID Malfunctioning AVF of LUE, chronic - Fistulogram on 09/28 without intervention - Vascular surgery consulted ([place])- fistulogram 09/28, will need balloon or stent - f/u outpatient with patient's [facility] surgeon Dr. Huber Hypertension, chronic - Vitals Q6H - Metoprolol succinate 50 mg PO daily Chronic obstructive pulmonary disease, chronic - Elevated eosinophils - IgE wnl - Ipratropium 0.5 mg IH Q6H [facility] - Duoneb Q6H PRN - Robitussin 5 mL PO Q4H PRN Benign prostatic hypertrophy, chronic - Flomax 0.4 mg PO daily Pancytopenia with h/o Lymphoma s/p chemotherapy, chronic, stable - Continue to monitor CBC on TTS with HD - f/u outpatient with patient's hem/onc in [facility] Ppx: VTE: SCDs, Heparin 5000u SC Q8H GI: Protonix 40 mg PO daily Diet: Renal Colace 100 mg PO TID Code status: full code Labs TTS with HD Dispo: Pending outpatient HD placement. Patient will need to f/u outpatient with his vascular surgeon, Dr. Huber, at [facility] for AVF malfunction. Patient will also need to f/u with oncologist in [facility] to assess lymphoma status. Case discussed with attending, Dr. Shan Hawkins. <Gaston Hawkins - Last Filed: 10/09/18 19:00> Objective - Vital Signs/Intake and Output Vital Signs (last 24 hours): Temp Pulse Resp BP Pulse Ox 98.3 F 81 20 147/73 98 10/09/18 16:06 10/09/18 16:06 10/09/18 16:06 10/09/18 16:06 10/09/18 16:06 Intake and Output: 10/09/18 10/09/18 06:59 18:59 Intake Total 500 400 Balance 500 400 - Medications Medications: Current Medications Albuterol/Ipratropium (Duoneb 3 Mg/0.5 Mg (3 Ml) Ud) 3 ml INH RQ6 PRN PRN Reason: Shortness of Breath Last Admin: 10/09/18 07:28 Dose: 3 ml Calcium Acetate (Phoslo) 2,001 mg PO TIDCC [facility] Last Admin: 10/09/18 17:34 Dose: 2,001 mg Diphenhydramine HCl (Benadryl) 25 mg PO Q12H PRN PRN Reason: Itching / Pruritus Last Admin: 10/08/18 02:55 Dose: 25 mg Docusate Sodium (Colace) 100 mg PO TID [facility] Last Admin: 10/09/18 17:35 Dose: 100 mg Gabapentin (Neurontin) 100 mg PO TTS [facility] Last Admin: 10/09/18 14:40 Dose: 100 mg Guaifenesin/Dextromethorphan (Robitussin Dm) 5 ml PO Q4H PRN PRN Reason: Cough Last Admin: 10/08/18 21:21 Dose: 5 ml Heparin Sodium (Porcine) (Heparin (For Dialysis)) 4,300 units IVP TTS [facility] Stop: 09/24/19 11:46 Last Admin: 10/09/18 12:22 Dose: 4,300 units Hydrocortisone (Cortizone 1% Cream) 1 gm TOP BID [facility] Last Admin: 10/09/18 09:44 Dose: Not Given Ipratropium [place] (Atrovent) 0.5 mg IH RQ6 [facility] Last Admin: 10/09/18 02:46 Dose: Not Given Loratadine (Claritin) 10 mg PO DAILY [facility] Last Admin: 10/09/18 14:40 Dose: 10 mg Metoprolol Succinate (Toprol Xl) 50 mg PO DAILY [facility] Last Admin: 10/09/18 14:39 Dose: 50 mg Pantoprazole Sodium (Protonix Ec Tab) 40 mg PO DAILY [facility] Last Admin: 10/09/18 09:44 Dose: Not Given Tamsulosin HCl (Flomax) 0.4 mg PO DAILY [facility] Last Admin: 10/09/18 14:40 Dose: 0.4 mg - Labs Labs: 10/09/18 10:08 10/09/18 10:08 PT 11.8 SECONDS (9.7-12.2) 09/26/18 19:45 INR 1.1 09/26/18 19:45 APTT 35 SECONDS (21-34) H 09/26/18 19:45 Attending/Attestation - Attestation I have personally seen and examined this patient.: Yes I have fully participated in the care of the patient.: Yes I have reviewed all pertinent clinical information, including history, physical exam and plan: Yes Notes (Text): 10/09/18 18:59 Patient was seen and examined at 11:30 AM. Care of this patient was gone over with resident Dr. Newell. Awaiting outpatient HD placment. Gaston Hawkins D.O.
[2018-10-09] MEDS: Albuterol-Ipratrop 3 mg / 0.5 (3 ml) UD INH PRN (07:28)
--- NOTE | 2018-10-09 09:15 | CP.PCM.PN ---
Subjective - Date & Time of Evaluation Date of Evaluation: 10/09/18 Time of Evaluation: 09:05 - Subjective Subjective: afebrile bp stable no new labs presently on dialysis comfortable usual bilateral shouder pain ROS no chills fever no sob or cough no chest pain no abd pain,n,v,dno dysuria no headache dizziness usual left arm swelling Objective - Vital Signs/Intake and Output Vital Signs (last 24 hours): Temp Pulse Resp BP Pulse Ox 98 F 74 20 144/72 97 10/09/18 08:21 10/09/18 08:21 10/09/18 08:21 10/09/18 08:21 10/09/18 08:21 Intake and Output: 10/09/18 10/09/18 06:59 18:59 Intake Total 500 Balance 500 - Medications Medications: Current Medications Albuterol/Ipratropium (Duoneb 3 Mg/0.5 Mg (3 Ml) Ud) 3 ml INH RQ6 PRN PRN Reason: Shortness of Breath Last Admin: 10/09/18 07:28 Dose: 3 ml Calcium Acetate (Phoslo) 2,001 mg PO TIDCC [facility] Last Admin: 10/09/18 09:02 Dose: Not Given Diphenhydramine HCl (Benadryl) 25 mg PO Q12H PRN PRN Reason: Itching / Pruritus Last Admin: 10/08/18 02:55 Dose: 25 mg Docusate Sodium (Colace) 100 mg PO TID [facility] Last Admin: 10/08/18 17:12 Dose: 100 mg Gabapentin (Neurontin) 100 mg PO TTS [facility] Guaifenesin/Dextromethorphan (Robitussin Dm) 5 ml PO Q4H PRN PRN Reason: Cough Last Admin: 10/08/18 21:21 Dose: 5 ml Hydrocortisone (Cortizone 1% Cream) 1 gm TOP BID [facility] Last Admin: 10/08/18 17:13 Dose: 1 applic Ipratropium [place] (Atrovent) 0.5 mg IH RQ6 [facility] Last Admin: 10/09/18 02:46 Dose: Not Given Loratadine (Claritin) 10 mg PO DAILY [facility] Last Admin: 10/08/18 09:35 Dose: 10 mg Metoprolol Succinate (Toprol Xl) 50 mg PO DAILY [facility] Last Admin: 10/08/18 09:34 Dose: 50 mg Pantoprazole Sodium (Protonix Ec Tab) 40 mg PO DAILY [facility] Last Admin: 10/08/18 09:34 Dose: 40 mg Tamsulosin HCl (Flomax) 0.4 mg PO DAILY [facility] Last Admin: 10/08/18 09:34 Dose: 0.4 mg - Labs Labs: 10/06/18 09:33 10/06/18 09:33 PT 11.8 SECONDS (9.7-12.2) 09/26/18 19:45 INR 1.1 09/26/18 19:45 APTT 35 SECONDS (21-34) H 09/26/18 19:45 - Constitutional Appears: Well, No Acute Distress - Head Exam Head Exam: NORMOCEPHALIC - ENT Exam ENT Exam: Mucous Membranes Moist - Respiratory Exam Respiratory Exam: Clear to Ausculation Bilateral, NORMAL BREATHING PATTERN - Cardiovascular Exam Cardiovascular Exam: REGULAR RHYTHM. absent: JVD - GI/Abdominal Exam GI & Abdominal Exam: Soft. absent: Distended, Tenderness - Extremities Exam Extremities Exam: absent: Calf Tenderness Additional comments: left arm swelling - Neurological Exam Neurological Exam: Alert, Awake - Psychiatric Exam Psychiatric exam: Normal Affect, Normal Mood - Skin Skin Exam: Dry, Warm Assessment and Plan (1) ESRD (end stage renal disease) on dialysis Status: Chronic (2) Heart failure Status: Acute (3) CHF (congestive heart failure), NYHA class IV Status: Acute (4) History of lymphoma Status: Acute (5) COPD (chronic obstructive pulmonary disease) Status: Chronic - Assessment and Plan (Free Text) Plan: schedule dialysis today await outpatient dialysis placenet try to remove 3 kg
[2018-10-09] MEDS: Pantoprazole 40 mg EC Tab PO SCH (09:44)
[2018-10-09] MEDS: Hydrocortisone 1% Cream (30 GM) TOP SCH ×2 (09:44→21:11)
[2018-10-09 10:14] LABS: BASO % 1.3 % (0.0-2.0); EOS # 0.4 K/uL (0.0-0.7); EOS % 14.5 % (0.0-4.0); HEMOGLOBIN 10.2 g/dL (12.0-18.0); LYMPH # 0.3 K/uL (1.0-4.3); LYMPH % 12.7 % (20.0-40.0); MEAN CELL VOLUME 92.7 fL (80.0-94.0); MEAN CORPUSCULAR HEMOGLOBIN 31.1 pg (27.0-31.0); MEAN CORPUSCULAR HGB CONC 33.6 g/dL (33.0-37.0); MEAN PLATELET VOLUME 10.5 fL (7.2-11.7); MONO # 0.2 K/uL (0.0-0.8); MONO % 9.8 % (0.0-10.0); NEUT # 1.6 K/uL (1.8-7.0); NEUT % 61.7 % (50.0-75.0); NRBC % 0.1 % (0.0-2.0); RBC 3.29 Mil/uL (4.40-5.90); RED CELL DISTRIBUTION WIDTH 16.2 % (11.5-14.5); WHITE BLOOD COUNT 2.5 K/uL (4.8-10.8)
[2018-10-09 10:41] LABS: ALB/GLOB RATIO 2.2 (1.0-2.1); ALBUMIN 3.7 g/dL (3.5-5.0); CALCIUM 9.2 mg/dl (8.6-10.4)
[2018-10-09] MEDS: Metoprolol Succinate 50 mg XL Tab PO SCH ×2 (11:37→14:39)
[2018-10-09] MEDS: guaiFENesin DM 100 mg-10 mg/5 ml UD PO PRN (21:08)
[2018-10-10] MEDS: Ipratropium 0.02% Inhal Soln (0.5 mg/2.5 ml) UD IH SCH ×4 (01:47→20:48)
[2018-10-10] MEDS: Pantoprazole 40 mg EC Tab PO SCH (09:03)
[2018-10-10] MEDS: Metoprolol Succinate 50 mg XL Tab PO SCH (09:03)
[2018-10-10] MEDS: Hydrocortisone 1% Cream (30 GM) TOP SCH ×2 (09:11→18:25)
[2018-10-10] MEDS: guaiFENesin DM 100 mg-10 mg/5 ml UD PO PRN ×3 (13:22→22:43)
--- NOTE | 2018-10-10 13:38 | CP.PCM.PN ---
Subjective - Date & Time of Evaluation Date of Evaluation: 10/10/18 Time of Evaluation: 13:35 - Subjective Subjective: stable dialysis 10/09- UF 3500ml feels well; no new complaint HTN controlled Objective - Vital Signs/Intake and Output Vital Signs (last 24 hours): Temp Pulse Resp BP Pulse Ox 98.7 F 80 20 121/73 100 10/10/18 07:32 10/10/18 07:32 10/10/18 07:32 10/10/18 07:32 10/10/18 07:32 Intake and Output: 10/10/18 10/10/18 06:59 18:59 Intake Total 450 200 Balance 450 200 - Medications Medications: Current Medications Albuterol/Ipratropium (Duoneb 3 Mg/0.5 Mg (3 Ml) Ud) 3 ml INH RQ6 PRN PRN Reason: Shortness of Breath Last Admin: 10/09/18 07:28 Dose: 3 ml Calcium Acetate (Phoslo) 2,001 mg PO TIDCC [facility] Last Admin: 10/10/18 12:22 Dose: 2,001 mg Diphenhydramine HCl (Benadryl) 25 mg PO Q12H PRN PRN Reason: Itching / Pruritus Last Admin: 10/08/18 02:55 Dose: 25 mg Docusate Sodium (Colace) 100 mg PO TID [facility] Last Admin: 10/10/18 13:04 Dose: 100 mg Gabapentin (Neurontin) 100 mg PO TTS [facility] Last Admin: 10/09/18 14:40 Dose: 100 mg Guaifenesin/Dextromethorphan (Robitussin Dm) 5 ml PO Q4H PRN PRN Reason: Cough Last Admin: 10/10/18 13:22 Dose: 5 ml Heparin Sodium (Porcine) (Heparin (For Dialysis)) 4,300 units IVP TTS [facility] Stop: 09/24/19 11:46 Last Admin: 10/09/18 12:22 Dose: 4,300 units Hydrocortisone (Cortizone 1% Cream) 1 gm TOP BID [facility] Last Admin: 10/10/18 09:11 Dose: 1 applic Ipratropium [place] (Atrovent) 0.5 mg IH RQ6 [facility] Last Admin: 10/10/18 08:21 Dose: 0.5 mg Loratadine (Claritin) 10 mg PO DAILY [facility] Last Admin: 10/10/18 09:03 Dose: 10 mg Metoprolol Succinate (Toprol Xl) 50 mg PO DAILY [facility] Last Admin: 10/10/18 09:03 Dose: 50 mg Pantoprazole Sodium (Protonix Ec Tab) 40 mg PO DAILY [facility] Last Admin: 10/10/18 09:03 Dose: 40 mg Tamsulosin HCl (Flomax) 0.4 mg PO DAILY [facility] Last Admin: 10/10/18 09:11 Dose: 0.4 mg - Labs Labs: 10/09/18 10:08 10/09/18 10:08 PT 11.8 SECONDS (9.7-12.2) 09/26/18 19:45 INR 1.1 09/26/18 19:45 APTT 35 SECONDS (21-34) H 09/26/18 19:45 - Constitutional Appears: No Acute Distress, Chronically Ill - Head Exam Head Exam: ATRAUMATIC, NORMAL INSPECTION - Eye Exam Eye Exam: EOMI, Normal appearance - Neck Exam Neck Exam: Normal Inspection. absent: Tenderness - Respiratory Exam Respiratory Exam: Clear to Ausculation Bilateral, NORMAL BREATHING PATTERN - Cardiovascular Exam Cardiovascular Exam: REGULAR RHYTHM, +S1 - GI/Abdominal Exam GI & Abdominal Exam: Soft. absent: Tenderness - Extremities Exam Extremities Exam: Normal Inspection. absent: Tenderness - Neurological Exam Neurological Exam: CN II-XII Intact, Oriented x3 - Skin Skin Exam: Dry, Warm Assessment and Plan (1) Failure of surgically constructed arteriovenous fistula Status: Acute (2) Essential hypertension Status: Acute (3) Secondary hyperparathyroidism Status: Acute (4) COPD (chronic obstructive pulmonary disease) with chronic bronchitis Status: Chronic (5) End-stage renal disease Status: Chronic - Assessment and Plan (Free Text) Plan: dialysis in /am, then TTS same meds awaiting dialysis placement
[2018-10-11] MEDS: Ipratropium 0.02% Inhal Soln (0.5 mg/2.5 ml) UD IH SCH ×4 (02:20→19:23)
--- NOTE | 2018-10-11 07:07 | CP.PCM.PN ---
<Vita King - Last Filed: 10/11/18 13:46> Subjective - Date & Time of Evaluation Date of Evaluation: 10/11/18 Time of Evaluation: 07:06 - Subjective Subjective: PGY-1 Vita King D.O. Medicine progress note for Dr. Shan Hawkins's service: Patient was seen and examined this morning. He is receiving HD. He has no new c omplaints. He still has mild itching, which has improved. He still needs reminding that he is pending an outpatient dialysis spot before he can be discharged. He denies any arm/shoulder pain. Objective - Vital Signs/Intake and Output Vital Signs (last 24 hours): Temp Pulse Resp BP Pulse Ox 98.1 F 78 20 159/81 H 97 10/10/18 23:32 10/10/18 23:32 10/10/18 23:32 10/10/18 23:32 10/10/18 23:32 Intake and Output: 10/11/18 10/11/18 06:59 18:59 Intake Total 400 Balance 400 - Medications Medications: Current Medications Calcium Acetate (Phoslo) 2,001 mg PO TIDCC [facility] Last Admin: 10/10/18 18:25 Dose: 2,001 mg Diphenhydramine HCl (Benadryl) 25 mg PO Q12H PRN PRN Reason: Itching / Pruritus Last Admin: 10/11/18 02:18 Dose: 25 mg Docusate Sodium (Colace) 100 mg PO TID [facility] Last Admin: 10/10/18 18:25 Dose: 100 mg Gabapentin (Neurontin) 100 mg PO TTS [facility] Last Admin: 10/09/18 14:40 Dose: 100 mg Guaifenesin/Dextromethorphan (Robitussin Dm) 5 ml PO Q4H PRN PRN Reason: Cough Last Admin: 10/10/18 22:43 Dose: 5 ml Heparin Sodium (Porcine) (Heparin (For Dialysis)) 4,300 units IVP TTS [facility] Stop: 09/24/19 11:46 Last Admin: 10/09/18 12:22 Dose: 4,300 units Hydrocortisone (Cortizone 1% Cream) 1 gm TOP BID [facility] Last Admin: 10/10/18 18:25 Dose: 1 applic Ipratropium [place] (Atrovent) 0.5 mg IH RQ6 [facility] Last Admin: 10/11/18 02:20 Dose: 0.5 mg Loratadine (Claritin) 10 mg PO DAILY [facility] Last Admin: 10/10/18 09:03 Dose: 10 mg Metoprolol Succinate (Toprol Xl) 50 mg PO DAILY [facility] Last Admin: 10/10/18 09:03 Dose: 50 mg Pantoprazole Sodium (Protonix Ec Tab) 40 mg PO DAILY [facility] Last Admin: 10/10/18 09:03 Dose: 40 mg Tamsulosin HCl (Flomax) 0.4 mg PO DAILY [facility] Last Admin: 10/10/18 09:11 Dose: 0.4 mg - Labs Labs: 10/09/18 10:08 10/09/18 10:08 PT 11.8 SECONDS (9.7-12.2) 09/26/18 19:45 INR 1.1 09/26/18 19:45 APTT 35 SECONDS (21-34) H 09/26/18 19:45 - Additional Findings Additional findings: - Constitutional Appears: Non-toxic, No Acute Distress - Head Exam Head Exam: ATRAUMATIC, NORMAL INSPECTION - Eye Exam Eye Exam: EOMI, Normal appearance - ENT Exam ENT Exam: Mucous Membranes Moist - Respiratory Exam Respiratory Exam: Clear to Ausculation Bilateral, NORMAL BREATHING PATTERN - Cardiovascular Exam Cardiovascular Exam: RRR, +S1, +S2 Additional comments: Permacath on L chest - GI/Abdominal Exam GI & Abdominal Exam: Soft. absent: Distended, Tenderness - Extremities Exam Extremities Exam: absent: Pedal Edema, Tenderness Additional comments: LUE nonpitting edema LUE AVF with audible bruit, thrill not palpated - Back Exam Back Exam: NORMAL INSPECTION - Neurological Exam Neurological Exam: Alert, Awake, CN II-XII Intact, Oriented x3 - Psychiatric Exam Psychiatric exam: Normal Affect, Normal Mood - Skin Skin Exam: Normal Color, Warm. absent: Erythema, Rash, Urticaria Assessment and Plan - Assessment and Plan (Free Text) Assessment: Patient is a 63 yo male with ESRD on HD, HTN, h/o lymphoma s/p chemotherapy, COPD, and BPH who presented for urgent dialysis. Patient was previously receiving dialysis as an outpatient; however, he went to [place] for 3 weeks without telling the dialysis center, and he lost his spot. Patient also lost his apartment. Patient has a malfunctioning AVF in the left arm, and he is currently receiving HD via permacath. Vascular surgery was consulted and performed a fistulogram without any intervention. Patient is pending dialysis placement. Plan: End stage renal disease on hemodialysis, acute on chronic - BUN 64, Cr 10.3 on admission - D-dimer 799 - BNP 5230 - PTH 423--> 291 - HD on TTS via L-sided permacath - Ferrlecit 125 mg IV daily - Phoslo 2001 mg PO TID - Nephrology consulted ([place])- HD TTS - CM/SW consulted- pending HD placement, patient's info sent to [facility] (patient's previous HD location) Pruritus, acute, improving- suspect 2/2 hyperphosphatemia - Continue HD as per nephro - Phoslo 1334 mg PO TID - Benadryl 25 mg PO Q12H PRN - Claritin 10 mg PO daily - Gabapentin 100 mg PO TTS after HD - Hydrocortisone 1% cream TOP BID Malfunctioning AVF of LUE, chronic - Fistulogram on 09/28 without intervention - Apply ice PRN - Vascular surgery consulted ([place])- fistulogram 09/28, will need balloon or stent - f/u outpatient with patient's [facility] vasc surgeon Dr. Huber Hypertension, chronic - Vitals Q6H - Metoprolol succinate 50 mg PO daily Chronic obstructive pulmonary disease, chronic - Elevated eosinophils - IgE wnl - Ipratropium 0.5 mg IH Q6H VIKY - Duoneb Q6H PRN - Robitussin 5 mL PO Q4H PRN Benign prostatic hypertrophy, chronic - Flomax 0.4 mg PO daily Pancytopenia with h/o Lymphoma s/p chemotherapy, chronic, stable - Continue to monitor CBC on TTS with HD - f/u outpatient with patient's hem/onc in [facility] Ppx: VTE: SCDs, Heparin with HD GI: Protonix 40 mg PO daily Diet: Renal Colace 100 mg PO TID Code status: full code Labs TTS with HD Dispo: Pending outpatient HD placement. Patient will need to f/u outpatient with his vascular surgeon, Dr. Huber, at [facility] for AVF malfunction. Patient will also need to f/u with oncologist in [facility] to assess lymphoma status. Case discussed with attending, Dr. Shan Hawkins. <Gaston Hawkins - Last Filed: 10/14/18 19:07> Objective - Vital Signs/Intake and Output Vital Signs (last 24 hours): Temp Pulse Resp BP Pulse Ox 97.8 F 76 20 131/75 97 10/12/18 16:00 10/12/18 16:00 10/12/18 16:00 10/12/18 16:00 10/12/18 16:00 - Labs Labs: 10/11/18 09:40 10/09/18 10:08 PT 11.8 SECONDS (9.7-12.2) 09/26/18 19:45 INR 1.1 09/26/18 19:45 APTT 35 SECONDS (21-34) H 09/26/18 19:45 Attending/Attestation - Attestation I have personally seen and examined this patient.: Yes I have fully participated in the care of the patient.: Yes I have reviewed all pertinent clinical information, including history, physical exam and plan: Yes Notes (Text): 10/14/18 19:07 This is a late entry. Care of this patient was gone over with Dr. King. Gaston Hawkins D.O.
[2018-10-11 09:57] LABS: BASO % 0.7 % (0.0-2.0); EOS # 0.4 K/uL (0.0-0.7); EOS % 13.2 % (0.0-4.0); HEMOGLOBIN 10.5 g/dL (12.0-18.0); LYMPH # 0.5 K/uL (1.0-4.3); LYMPH % 16.1 % (20.0-40.0); MEAN CELL VOLUME 92.5 fL (80.0-94.0); MEAN CORPUSCULAR HEMOGLOBIN 31.8 pg (27.0-31.0); MEAN CORPUSCULAR HGB CONC 34.3 g/dL (33.0-37.0); MEAN PLATELET VOLUME 12.8 fL (7.2-11.7); MONO # 0.4 K/uL (0.0-0.8); MONO % 11.1 % (0.0-10.0); NEUT % 58.9 % (50.0-75.0); NRBC % 0.2 % (0.0-2.0); RBC 3.3 Mil/uL (4.40-5.90); RED CELL DISTRIBUTION WIDTH 16.7 % (11.5-14.5); WHITE BLOOD COUNT 3.3 K/uL (4.8-10.8)
--- NOTE | 2018-10-11 10:07 | CP.PCM.PN ---
Subjective - Date & Time of Evaluation Date of Evaluation: 10/11/18 Time of Evaluation: 10:06 - Subjective Subjective: seen ay dialysis; to UF 2900ml labs acceptable; still with leukopenia HTN controlled no new complaint Objective - Vital Signs/Intake and Output Vital Signs (last 24 hours): Temp Pulse Resp BP Pulse Ox 97.5 F L 83 16 132/65 99 10/11/18 08:50 10/11/18 08:50 10/11/18 08:50 10/11/18 09:35 10/11/18 08:50 Intake and Output: 10/11/18 10/11/18 06:59 18:59 Intake Total 400 200 Balance 400 200 - Medications Medications: Current Medications Calcium Acetate (Phoslo) 2,001 mg PO TIDCC [facility] Last Admin: 10/11/18 08:36 Dose: Not Given Diphenhydramine HCl (Benadryl) 25 mg PO Q12H PRN PRN Reason: Itching / Pruritus Last Admin: 10/11/18 02:18 Dose: 25 mg Docusate Sodium (Colace) 100 mg PO TID [facility] Last Admin: 10/10/18 18:25 Dose: 100 mg Gabapentin (Neurontin) 100 mg PO TTS [facility] Last Admin: 10/09/18 14:40 Dose: 100 mg Guaifenesin/Dextromethorphan (Robitussin Dm) 5 ml PO Q4H PRN PRN Reason: Cough Last Admin: 10/10/18 22:43 Dose: 5 ml Heparin Sodium (Porcine) (Heparin (For Dialysis)) 4,300 units IVP TTS [facility] Stop: 09/24/19 11:46 Last Admin: 10/09/18 12:22 Dose: 4,300 units Hydrocortisone (Cortizone 1% Cream) 1 gm TOP BID [facility] Last Admin: 10/10/18 18:25 Dose: 1 applic Ipratropium Isabella (Atrovent) 0.5 mg IH RQ6 [facility] Last Admin: 10/11/18 08:33 Dose: Not Given Loratadine (Claritin) 10 mg PO DAILY [facility] Last Admin: 10/10/18 09:03 Dose: 10 mg Metoprolol Succinate (Toprol Xl) 50 mg PO DAILY [facility] Last Admin: 10/10/18 09:03 Dose: 50 mg Pantoprazole Sodium (Protonix Ec Tab) 40 mg PO DAILY [facility] Last Admin: 10/10/18 09:03 Dose: 40 mg Tamsulosin HCl (Flomax) 0.4 mg PO DAILY [facility] Last Admin: 10/10/18 09:11 Dose: 0.4 mg - Labs Labs: 10/11/18 09:40 10/09/18 10:08 PT 11.8 SECONDS (9.7-12.2) 09/26/18 19:45 INR 1.1 09/26/18 19:45 APTT 35 SECONDS (21-34) H 09/26/18 19:45 - Constitutional Appears: No Acute Distress, Chronically Ill - Head Exam Head Exam: ATRAUMATIC, NORMAL INSPECTION - Eye Exam Eye Exam: EOMI, Normal appearance - Neck Exam Neck Exam: Normal Inspection. absent: Tenderness - Respiratory Exam Respiratory Exam: Clear to Ausculation Bilateral, NORMAL BREATHING PATTERN - Cardiovascular Exam Cardiovascular Exam: REGULAR RHYTHM, +S1 - GI/Abdominal Exam GI & Abdominal Exam: Soft. absent: Tenderness - Extremities Exam Extremities Exam: Normal Inspection. absent: Tenderness - Neurological Exam Neurological Exam: Awake, CN II-XII Intact - Skin Skin Exam: Dry, Warm Assessment and Plan (1) Failure of surgically constructed arteriovenous fistula Status: Acute (2) Essential hypertension Status: Acute (3) Secondary hyperparathyroidism Status: Acute (4) COPD (chronic obstructive pulmonary disease) with chronic bronchitis Status: Chronic (5) End-stage renal disease Status: Chronic - Assessment and Plan (Free Text) Plan: dialysis TTS Same meds await outpt HD placement
[2018-10-11] MEDS: Metoprolol Succinate 50 mg XL Tab PO SCH (10:19)
[2018-10-11] MEDS: Hydrocortisone 1% Cream (30 GM) TOP SCH ×2 (10:19→17:31)
[2018-10-11] MEDS: Pantoprazole 40 mg EC Tab PO SCH (10:19)
[2018-10-11] MEDS: guaiFENesin DM 100 mg-10 mg/5 ml UD PO PRN ×3 (12:10→21:17)
[2018-10-11] MEDS ORDERED: Lidocaine 5% Patch TD ONE (13:53)
[2018-10-11 16:01] VITALS: RESP 20
[2018-10-12] MEDS: Ipratropium 0.02% Inhal Soln (0.5 mg/2.5 ml) UD IH SCH ×4 (02:08→19:27)
[2018-10-12 08:13] VITALS: PULSE 76
[2018-10-12] MEDS: Metoprolol Succinate 50 mg XL Tab PO SCH (10:21)
[2018-10-12] MEDS: Pantoprazole 40 mg EC Tab PO SCH (10:21)
[2018-10-12] MEDS: Hydrocortisone 1% Cream (30 GM) TOP SCH ×2 (10:21→17:10)
--- NOTE | 2018-10-12 14:13 | CP.PCM.PN ---
Subjective - Date & Time of Evaluation Date of Evaluation: 10/12/18 Time of Evaluation: 14:11 - Subjective Subjective: stable dialysis 5/2 feels well labs reviewed- stable HTN controlled Objective - Vital Signs/Intake and Output Vital Signs (last 24 hours): Temp Pulse Resp BP Pulse Ox 97.5 F L 76 20 136/69 96 10/12/18 08:00 10/12/18 08:00 10/12/18 08:00 10/12/18 08:00 10/12/18 08:00 Intake and Output: 10/12/18 10/12/18 06:59 18:59 Intake Total 600 Balance 600 - Medications Medications: Current Medications Calcium Acetate (Phoslo) 2,001 mg PO TIDCC [facility] Last Admin: 10/12/18 11:59 Dose: 2,001 mg Diphenhydramine HCl (Benadryl) 25 mg PO Q12H PRN PRN Reason: Itching / Pruritus Last Admin: 10/12/18 03:55 Dose: 25 mg Docusate Sodium (Colace) 100 mg PO TID [facility] Last Admin: 10/12/18 14:01 Dose: 100 mg Gabapentin (Neurontin) 100 mg PO TTS [facility] Last Admin: 10/11/18 10:19 Dose: Not Given Guaifenesin/Dextromethorphan (Robitussin Dm) 5 ml PO Q4H PRN PRN Reason: Cough Last Admin: 10/11/18 21:17 Dose: 5 ml Heparin Sodium (Porcine) (Heparin (For Dialysis)) 4,300 units IVP TTS [facility] Stop: 09/24/19 11:46 Last Admin: 10/11/18 12:14 Dose: 4,300 units Hydrocortisone (Cortizone 1% Cream) 1 gm TOP BID [facility] Last Admin: 10/12/18 10:21 Dose: 1 applic Ipratropium [place] (Atrovent) 0.5 mg IH RQ6 [facility] Last Admin: 10/12/18 13:48 Dose: Not Given Loratadine (Claritin) 10 mg PO DAILY [facility] Last Admin: 10/12/18 10:20 Dose: 10 mg Metoprolol Succinate (Toprol Xl) 50 mg PO DAILY [facility] Last Admin: 10/12/18 10:21 Dose: 50 mg Pantoprazole Sodium (Protonix Ec Tab) 40 mg PO DAILY [facility] Last Admin: 10/12/18 10:21 Dose: 40 mg Tamsulosin HCl (Flomax) 0.4 mg PO DAILY [facility] Last Admin: 10/12/18 10:20 Dose: 0.4 mg - Labs Labs: 10/11/18 09:40 10/09/18 10:08 PT 11.8 SECONDS (9.7-12.2) 09/26/18 19:45 INR 1.1 09/26/18 19:45 APTT 35 SECONDS (21-34) H 09/26/18 19:45 - Constitutional Appears: No Acute Distress, Chronically Ill - Head Exam Head Exam: ATRAUMATIC, NORMAL INSPECTION - Eye Exam Eye Exam: EOMI, Normal appearance - Neck Exam Neck Exam: Normal Inspection. absent: Tenderness - Respiratory Exam Respiratory Exam: Clear to Ausculation Bilateral, NORMAL BREATHING PATTERN - Cardiovascular Exam Cardiovascular Exam: REGULAR RHYTHM, +S1 - GI/Abdominal Exam GI & Abdominal Exam: Soft. absent: Tenderness - Extremities Exam Extremities Exam: Normal Inspection. absent: Tenderness - Neurological Exam Neurological Exam: Awake, CN II-XII Intact - Skin Skin Exam: Dry, Warm Assessment and Plan (1) Failure of surgically constructed arteriovenous fistula Status: Acute (2) Essential hypertension Status: Acute (3) Secondary hyperparathyroidism Status: Acute (4) COPD (chronic obstructive pulmonary disease) with chronic bronchitis Status: Chronic (5) End-stage renal disease Status: Chronic - Assessment and Plan (Free Text) Plan: dialysis TTS Attempting to obtain outpt dialysis placement
--- NOTE | 2018-10-12 16:09 | CP.PCM.DIS ---
<Vita King - Last Filed: 10/12/18 17:34> Provider - Provider Date of Admission: 09/28/18 12:29 Attending physician: Gaston Hawkins MD Primary care physician: Mariya Consults: 09/26/18 22:10 Nephrology Consult Routine Comment: Consulting Provider: Christiano Alegre Consulting Physician: Christiano Alegre Reason for Consult: HD on MWF 09/26/18 23:43 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 Physician Instructions: Reason For Exam: Hx of Left Arm AVF Graft. FUnctioning? 10/01/18 08:52 Case Management Referral Routine Comment: Physician Instructions: Reason For Exam: dialysis placement Reason for Referral: Discharge Planning Time Spent in preparation of Discharge (in minutes): 45 Diagnosis - Discharge Diagnosis (1) ESRD (end stage renal disease) on dialysis Status: Chronic Priority: High (2) Hypertension Status: Chronic Priority: High (3) COPD (chronic obstructive pulmonary disease) Status: Chronic Priority: Medium (4) Pruritus Status: Acute Priority: Low (5) BPH (benign prostatic hyperplasia) Status: Chronic Priority: Low (6) Pancytopenia Status: Chronic Priority: Low (7) Failure of surgically constructed arteriovenous fistula Status: Chronic Priority: Low Hospital Course - Lab Results Lab Results: Most Recent Lab Values WBC 3.3 K/uL (4.8-10.8) L 10/11/18 09:40 RBC 3.30 Mil/uL (4.40-5.90) L 10/11/18 09:40 Hgb 10.5 g/dL (12.0-18.0) L 10/11/18 09:40 Hct 30.6 % (35.0-51.0) L 10/11/18 09:40 MCV 92.5 fL (80.0-94.0) 10/11/18 09:40 MCH 31.8 pg (27.0-31.0) H 10/11/18 09:40 MCHC 34.3 g/dL (33.0-37.0) 10/11/18 09:40 RDW 16.7 % (11.5-14.5) H 10/11/18 09:40 Plt Count 110 K/uL (130-400) L D 10/11/18 09:40 MPV 12.8 fL (7.2-11.7) H 10/11/18 09:40 Neut % (Auto) 58.9 % (50.0-75.0) 10/11/18 09:40 Lymph % (Auto) 16.1 % (20.0-40.0) L 10/11/18 09:40 [place] % (Auto) 11.1 % (0.0-10.0) H 10/11/18 09:40 Eos % (Auto) 13.2 % (0.0-4.0) H 10/11/18 09:40 Baso % (Auto) 0.7 % (0.0-2.0) 10/11/18 09:40 Neut # (Auto) 2.0 K/uL (1.8-7.0) 10/11/18 09:40 Lymph # (Auto) 0.5 K/uL (1.0-4.3) L 10/11/18 09:40 [place] # (Auto) 0.4 K/uL (0.0-0.8) 10/11/18 09:40 Eos # (Auto) 0.4 K/uL (0.0-0.7) 10/11/18 09:40 Baso # (Auto) 0.0 K/uL (0.0-0.2) 10/11/18 09:40 Differential Comment 10/09/18 10:08 PT 11.8 SECONDS (9.7-12.2) 09/26/18 19:45 INR 1.1 09/26/18 19:45 APTT 35 SECONDS (21-34) H 09/26/18 19:45 D-Dimer, Quantitative 799 ng/mlDDU (0-243) H 09/26/18 19:45 Sodium 133 mmol/L (132-148) 10/09/18 10:08 Potassium 5.0 mmol/L (3.6-5.2) 10/09/18 10:08 Chloride 93 mmol/L (98-107) L 10/09/18 10:08 Carbon Dioxide 25 mmol/L (22-30) 10/09/18 10:08 Anion Gap 20 (10-20) 10/09/18 10:08 BUN 74 mg/dL (9-20) H 10/09/18 10:08 Creatinine 9.8 mg/dL (0.8-1.5) H* 10/09/18 10:08 Est GFR ( Amer) 7 10/09/18 10:08 Est GFR (Non-Af Amer) 5 10/09/18 10:08 POC Glucose (mg/dL) 87 mg/dL (65-110) 09/27/18 06:26 Random Glucose 116 mg/dL (75-110) H 10/09/18 10:08 Calcium 9.2 mg/dl (8.6-10.4) 10/09/18 10:08 Phosphorus 4.3 mg/dL (2.5-4.5) 10/11/18 09:40 Magnesium 2.2 mg/dL (1.6-2.3) 10/09/18 10:08 % Saturation 13 (20-55) L 09/27/18 10:58 Ferritin 756.0 ng/mL 09/27/18 10:58 Total Bilirubin 0.5 mg/dL (0.2-1.3) 10/09/18 10:08 AST 21 U/L (17-59) 10/09/18 10:08 ALT 19 U/L (21-72) L 10/09/18 10:08 Alkaline Phosphatase 66 U/L (38-126) 10/09/18 10:08 Troponin I 0.0280 ng/mL (0.00-0.120) 09/26/18 19:45 NT-Pro-B Natriuret Pep 5230 pg/mL (0-900) H 09/26/18 19:45 Total Protein 5.3 g/dL (6.3-8.3) L 10/09/18 10:08 Albumin 3.7 g/dL (3.5-5.0) 10/09/18 10:08 Globulin 1.7 gm/dL (2.2-3.9) L 10/09/18 10:08 Albumin/Globulin Ratio 2.2 (1.0-2.1) H 10/09/18 10:08 PTH Intact Whole Molec 291 pg/mL (14-64) H 10/03/18 11:09 IgE 15 kU/L (<ff=836) 10/01/18 11:35 Hep Bs Antigen Negative (NEGATIVE) 09/27/18 10:58 Hep Bs Antibody Negative (NEGATIVE) 09/27/18 10:58 Hep B Core IgM Ab Negative (NEGATIVE) 09/27/18 10:58 Hepatitis C Antibody Negative (NEGATIVE) 09/27/18 10:58 - Hospital Course Hospital Course: Patient is a 63 year old [place] male with PMH of ESRD on HD MWF, hypertension, lymphoma s/p chemo, COPD, and BPH comes to [facility] for urgent dialysis. He was in [place] for the last three weeks, and his last HD session was Monday (3 days ago). Upon returning, he was informed by [facility] that he lost his chair since they were not informed of his intended absence. They advised him to go to the hospital, which he did. While in [place], he did have a FOOSH and bruised his R ribs. XR and work up in [place] showed no fracture, however, he is still experiencing mild should pain which is improved with gels and creams. Denies chest pain, abdominal pain, dizziness, numbness, tingling, palpitations. Admits to temporary shortness of breath that resolved prior to coming into the ED. Patient was admitted for ESRD on HD. Neprhology was consulted. Case management and social work were involed in his case to obtain him a new dialysis seat so he could attend as an outpatient. Patient was started on a TTS schedule while inpatient. Vascular surgery was consulted for nonfunctioning LUE AVF. They performed a fistulogram without intervention. They recommended a balloon or stent in the future, but they advised patient to see his establish vascular surgeon, Dr. Huber, at [facility] for the procedure once discharged. Shoulder pain improved with warm compresses and ice packs. Patient experienced significant pruritus while hospitalized. This resolved with hydrocortisone cream and Benadryl. Early in the hospitalization, patient lost his balance and hit his head on a door. CT head done and was negative for acute findings. Patient was monitored for chronic conditions (COPD, BPH, HTN, pancytopenia due to h/o lymphoma) and continued on home medications. Patient was advised to follow-up with his bus company manager/oncologist in [facility] once discharged. Upon discharge, patient obtained a dialysis spot at [facility]. His vitals and labs were stable. He was provided with follow-up instructions. He will continue on TTS scheduled for dialysis. Discharge Exam - Head Exam Head Exam: ATRAUMATIC, NORMAL INSPECTION - Eye Exam Eye Exam: EOMI, Normal appearance - ENT Exam ENT Exam: Mucous Membranes Moist - Neck Exam Neck exam: Normal Inspection - Respiratory Exam Respiratory Exam: Clear to PA & Lateral, NORMAL BREATHING PATTERN, UNREMARKABLE - Cardiovascular Exam Cardiovascular Exam: RRR, +S1, +S2 Additional comments: L chest permacath - GI/Abdominal Exam GI & Abdominal Exam: Soft, Unremarkable. absent: Distended, Tenderness - Extremities Exam Extremities exam: pedal pulses present Additional comments: LUE nonpitting edema, non-functioning AVF, no tenderness, radial pulse palpable - Back Exam Back exam: NORMAL INSPECTION - Neurological Exam Neurological exam: Alert, CN II-XII Intact, Normal Gait, Oriented x3 - Psychiatric Exam Psychiatric exam: Normal Affect, Normal Mood - Skin Skin Exam: Dry, Normal Color, Warm Discharge Plan - Discharge Medications Prescriptions: Albuterol HFA [Ventolin HFA 90 mcg/actuation (8 g)] 2 puff INH RQ6 PRN 30 Days inhaler PRN Reason: Shortness Of Breath Calcium Acetate [Phoslo] 2,001 mg PO TIDCC #90 tab Docusate [Colace] 100 mg PO TID #90 cap Gabapentin [Neurontin] 100 mg PO TTS #12 cap Metoprolol Succinate XL [Toprol XL] 50 mg PO DAILY #30 tab Tamsulosin [Flomax] 0.4 mg PO DAILY #30 cap Tiotropium [Spiriva] 18 mcg INH DAILY 30 Days cap - Follow Up Plan Condition: GOOD Disposition: HOME/ ROUTINE Patient education suggested?: Yes Instructions: Shortness of Breath (Dyspnea) (DC), End Stage Kidney Disease (DC) Additional Instructions: Follow-up with primary care physician. Dr. Lara, within 1 week of discharge. Follow-up with vascular surgeon, Dr. Huber, at [facility] for fistula repair in your left arm within 1 week of discharge. Follow-up with bus company manager/oncologist in [facility] for your history of lymphoma within 1 week of discharge. Go to [facility] dialysis oral tomorrow (Monday10/13/18) as instructed by social staff worker. You will go each Monday, , and Monday for dialysis. Take the following prescriptions: Metoprolol 50 mg daily (8am) Flomax 0.4 mg daily (8am) Phoslo 2001 mg three times a day after each meal (8am, 2pm, 8pm) Colace 100 mg three times a day (8am, 2pm, 8pm) Gabapentin 100 mg on Monday, , and Monday after dialysis Metoprolol 50 mg daily (8am) Spiriva 18 mcg inhaler 2 puffs daily Albuterol 90 mcg inhaler 2 puffs every 6 hours as needed for shortness of breath Referrals: Davina Lara MD [Medical Doctor] - Christiano Alegre MD [Staff Provider] - <Gaston Hawkins - Last Filed: 10/12/18 18:55> Provider - Provider Date of Admission: 09/28/18 12:29 Attending physician: Gaston Hawkins MD Consults: 09/26/18 22:10 Nephrology Consult Routine Comment: Consulting Provider: Christiano Alegre Consulting Physician: Christiano Alegre Reason for Consult: HD on MWF 09/26/18 23:43 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 Physician Instructions: Reason For Exam: Hx of Left Arm AVF Graft. FUnctioning? 10/01/18 08:52 Case Management Referral Routine Comment: Physician Instructions: Reason For Exam: dialysis placement Reason for Referral: Discharge Planning Hospital Course - Lab Results Lab Results: Most Recent Lab Values WBC 3.3 K/uL (4.8-10.8) L 10/11/18 09:40 RBC 3.30 Mil/uL (4.40-5.90) L 10/11/18 09:40 Hgb 10.5 g/dL (12.0-18.0) L 10/11/18 09:40 Hct 30.6 % (35.0-51.0) L 10/11/18 09:40 MCV 92.5 fL (80.0-94.0) 10/11/18 09:40 MCH 31.8 pg (27.0-31.0) H 10/11/18 09:40 MCHC 34.3 g/dL (33.0-37.0) 10/11/18 09:40 RDW 16.7 % (11.5-14.5) H 10/11/18 09:40 Plt Count 110 K/uL (130-400) L D 10/11/18 09:40 MPV 12.8 fL (7.2-11.7) H 10/11/18 09:40 Neut % (Auto) 58.9 % (50.0-75.0) 10/11/18 09:40 Lymph % (Auto) 16.1 % (20.0-40.0) L 10/11/18 09:40 [place] % (Auto) 11.1 % (0.0-10.0) H 10/11/18 09:40 Eos % (Auto) 13.2 % (0.0-4.0) H 10/11/18 09:40 Baso % (Auto) 0.7 % (0.0-2.0) 10/11/18 09:40 Neut # (Auto) 2.0 K/uL (1.8-7.0) 10/11/18 09:40 Lymph # (Auto) 0.5 K/uL (1.0-4.3) L 10/11/18 09:40 [place] # (Auto) 0.4 K/uL (0.0-0.8) 10/11/18 09:40 Eos # (Auto) 0.4 K/uL (0.0-0.7) 10/11/18 09:40 Baso # (Auto) 0.0 K/uL (0.0-0.2) 10/11/18 09:40 Differential Comment 10/09/18 10:08 PT 11.8 SECONDS (9.7-12.2) 09/26/18 19:45 INR 1.1 09/26/18 19:45 APTT 35 SECONDS (21-34) H 09/26/18 19:45 D-Dimer, Quantitative 799 ng/mlDDU (0-243) H 09/26/18 19:45 Sodium 133 mmol/L (132-148) 10/09/18 10:08 Potassium 5.0 mmol/L (3.6-5.2) 10/09/18 10:08 Chloride 93 mmol/L (98-107) L 10/09/18 10:08 Carbon Dioxide 25 mmol/L (22-30) 10/09/18 10:08 Anion Gap 20 (10-20) 10/09/18 10:08 BUN 74 mg/dL (9-20) H 10/09/18 10:08 Creatinine 9.8 mg/dL (0.8-1.5) H* 10/09/18 10:08 Est GFR ( Amer) 7 10/09/18 10:08 Est GFR (Non-Af Amer) 5 10/09/18 10:08 POC Glucose (mg/dL) 87 mg/dL (65-110) 09/27/18 06:26 Random Glucose 116 mg/dL (75-110) H 10/09/18 10:08 Calcium 9.2 mg/dl (8.6-10.4) 10/09/18 10:08 Phosphorus 4.3 mg/dL (2.5-4.5) 10/11/18 09:40 Magnesium 2.2 mg/dL (1.6-2.3) 10/09/18 10:08 % Saturation 13 (20-55) L 09/27/18 10:58 Ferritin 756.0 ng/mL 09/27/18 10:58 Total Bilirubin 0.5 mg/dL (0.2-1.3) 10/09/18 10:08 AST 21 U/L (17-59) 10/09/18 10:08 ALT 19 U/L (21-72) L 10/09/18 10:08 Alkaline Phosphatase 66 U/L (38-126) 10/09/18 10:08 Troponin I 0.0280 ng/mL (0.00-0.120) 09/26/18 19:45 NT-Pro-B Natriuret Pep 5230 pg/mL (0-900) H 09/26/18 19:45 Total Protein 5.3 g/dL (6.3-8.3) L 10/09/18 10:08 Albumin 3.7 g/dL (3.5-5.0) 10/09/18 10:08 Globulin 1.7 gm/dL (2.2-3.9) L 10/09/18 10:08 Albumin/Globulin Ratio 2.2 (1.0-2.1) H 10/09/18 10:08 PTH Intact Whole Molec 291 pg/mL (14-64) H 10/03/18 11:09 IgE 15 kU/L (<js=230) 10/01/18 11:35 Hep Bs Antigen Negative (NEGATIVE) 09/27/18 10:58 Hep Bs Antibody Negative (NEGATIVE) 09/27/18 10:58 Hep B Core IgM Ab Negative (NEGATIVE) 09/27/18 10:58 Hepatitis C Antibody Negative (NEGATIVE) 09/27/18 10:58 Attending/Attestation - Attestation I have personally seen and examined this patient.: Yes I have fully participated in the care of the patient.: Yes I have reviewed all pertinent clinical information, including history, physical exam and plan: Yes Notes (Text): 10/12/18 18:54 Patient was seen and examined at 8:30 AM Care of this patient and discharge instructions were thoroughly gone over with resident Dr. King. Gaston Hawkins D.O.
[2018-10-12 16:14] VITALS: BP 131/75; TEMP 97.8; O2SAT 97
== END 2018-10-12 21:11 | disposition home or self-care (01) | DRG 127 ==
LOC: C.ER 18:43 → UNDOADMOB 20:39 → INTOOBSV 20:39 → C.9E 20:39 → OBSVTOIN 20:39 → C.6T 21:24 → C.9E 21:24 → OBSVTOIN 09-28 12:29 → C.6T 09-28 12:29 → C.9E 09-28 12:29 → C.3T 10-02 10:08
PROVIDERS: ADMIT Family Medicine; ATTEND Family Medicine
PROC: B51W1ZZ Fluoroscopy of Dialysis Shunt/Fistula using Low Osmolar Contrast (ICD-10-PCS; principal; 2018-09-28 15:00)
PROC: 5A1D70Z Performance of Urinary Filtration, Intermittent, Less than 6 Hours Per Day (ICD-10-PCS; 2018-10-02)
DX: I13.2 Hypertensive heart and chronic kidney disease with heart failure and with stage 5 chronic kidney disease, or end stage renal disease (principal); T82.898A Other specified complication of vascular prosthetic devices, implants and grafts, initial encounter; D61.818 Other pancytopenia; I50.9 Heart failure, unspecified; J44.9 Chronic obstructive pulmonary disease, unspecified; N18.6 End stage renal disease; E78.00 Pure hypercholesterolemia, unspecified; I48.91 Unspecified atrial fibrillation; L29.9 Pruritus, unspecified; N25.81 Secondary hyperparathyroidism of renal origin; N40.0 Benign prostatic hyperplasia without lower urinary tract symptoms; F17.200 Nicotine dependence, unspecified, uncomplicated; Z91.14 Patient's other noncompliance with medication regimen; Z99.2 Dependence on renal dialysis; Z85.72 Personal history of non-Hodgkin lymphomas; Y83.2 Surgical operation with anastomosis, bypass or graft as the cause of abnormal reaction of the patient, or of later complication, without mention of misadventure at the time of the procedure; E83.39 Other disorders of phosphorus metabolism; S09.90XA Unspecified injury of head, initial encounter; W22.01XA Walked into wall, initial encounter

== ENCOUNTER 2018-10-13 22:34 | Emergency (ER) | payer MEDICAID ==
[2018-10-13 22:34] VITALS: PULSE 140
[2018-10-13 22:51] VITALS: BMI 32.0
[2018-10-14 00:29] LABS: ALB/GLOB RATIO 1.8 (1.0-2.1); ALBUMIN 4.2 g/dL (3.5-5.0); BASO % 1.1 % (0.0-2.0); CALCIUM 9.4 mg/dl (8.6-10.4); EOS # 0.3 K/uL (0.0-0.7); EOS % 9.3 % (0.0-4.0); HEMOGLOBIN 11.1 g/dL (12.0-18.0); LYMPH # 0.4 K/uL (1.0-4.3); LYMPH % 11.3 % (20.0-40.0); MEAN CELL VOLUME 92.3 fL (80.0-94.0); MEAN CORPUSCULAR HEMOGLOBIN 30.7 pg (27.0-31.0); MEAN CORPUSCULAR HGB CONC 33.3 g/dL (33.0-37.0); MEAN PLATELET VOLUME 11.1 fL (7.2-11.7); MONO # 0.4 K/uL (0.0-0.8); MONO % 11.9 % (0.0-10.0); NEUT # 2.4 K/uL (1.8-7.0); NEUT % 66.4 % (50.0-75.0); NRBC % 0.1 % (0.0-2.0); RBC 3.6 Mil/uL (4.40-5.90); RED CELL DISTRIBUTION WIDTH 16.4 % (11.5-14.5); WHITE BLOOD COUNT 3.7 K/uL (4.8-10.8)
[2018-10-14 00:40] LABS: TROPONIN I 0.038 ng/mL (0.00-0.120)
[2018-10-14 01:05] VITALS: PULSE 85
--- NOTE | 2018-10-14 01:36 | C.PDOC ---
History Of Present Illness 63-year-old male presents to the ED for evaluation of shortness of breath which began after undergoing dialysis today. Patient states he usually attends dialysis on Monday//Monday. He denies fever, chills, chest pain at th is time. Time Seen by Provider: 10/13/18 23:46 Chief Complaint (Nursing): Shortness Of Breath History Per: Patient History/Exam Limitations: no limitations Onset/Duration Of Symptoms: Hrs Current Symptoms Are (Timing): Still Present Current Respiratory Medications: See Home Med List Past Medical History Reviewed: Historical Data, Nursing Documentation, Vital Signs Vital Signs: Last Vital Signs Temp 97.6 F 10/13/18 22:51 Pulse 85 10/14/18 01:04 Resp 18 10/14/18 01:04 BP 145/87 10/13/18 22:51 Pulse Ox 96 10/14/18 01:04 Primary Care Provider: Davina Lara - Medical History PMH: Anemia, Arthritis (BACK), Asthma, Atrial Fibrillation, CHF, COPD, HTN, Hypercholesterolemia, Hyperlipidemia, Kidney Stones (Rt kidney), Pneumonia, End Stage Renal Disease (on hemodialysis M/W/F), Chronic Kidney Disease Surgical History: Endoscopy - [facility] Procedures (09/24/17) BYPASS L AXILLA ART TO UP ARM VEIN W SYNTH SUB, OPEN (12/23/16) DIALYSIS ARTERIOVENOSTOM (01/22/15) DILATION OF R SUBCLAV VEIN WITH INTRALUM DEV, PERC APPROACH (12/23/16) DILATION OF RIGHT AXILLARY VEIN, PERCUTANEOUS APPROACH (12/23/16) DILATION OF RIGHT BASILIC VEIN, PERCUTANEOUS APPROACH (09/09/16) DILATION OF UPPER VEIN, PERCUTANEOUS APPROACH (02/28/17) EXTIRPATION OF MATTER FROM UPPER VEIN, PERCUTANEOUS APPROACH (12/23/16) FLUOROSCOPY OF DIALYSIS SHUNT/FISTULA USING L OSM CONTRAST (12/23/16) FLUOROSCOPY OF SUP VENA CAVA USING L OSM CONTRAST, GUIDANCE (12/23/16) FLUOROSCOPY OF SUPERIOR VENA CAVA (09/09/16) HEMODIALYSIS (01/30/15) INSERTION OF INFUSION DEV INTO SUP VENA CAVA, PERC APPROACH (12/23/16) PACKED CELL TRANSFUSION (11/05/14) PERFORMANCE OF URINARY FILTRATION, MULTIPLE (02/28/17) PERFORMANCE OF URINARY FILTRATION, SINGLE (02/29/16) TRANSFUSE NONAUT PLATELETS IN PERIPH VEIN, PERC (09/09/16) ULTRASONOGRAPHY OF SUPERIOR VENA CAVA, GUIDANCE (09/09/16) VENOUS CATHETERIZATION FOR RENAL DIALYSIS (11/05/14) Family History: States: Unknown Family Hx - Social History Hx Tobacco Use: No (Quit years ago) Hx Alcohol Use: No Hx Substance Use: No - Immunization History Hx Tetanus Toxoid Vaccination: Yes Hx Influenza Vaccination: Yes Hx Pneumococcal Vaccination: Yes Review Of Systems Constitutional: Negative for: Fever, Chills Cardiovascular: Negative for: Chest Pain Respiratory: Positive for: Shortness of Breath Physical Exam - Physical Exam Appears: Non-toxic, No Acute Distress, Other (sleeping, in no apparent distress. obese, argumentative, confrontational ) Skin: Normal Color, Warm, Dry Head: Atraumatic, Normacephalic Eye(s): bilateral: Normal Inspection Oral Mucosa: Moist Neck: Supple Chest: Symmetrical, No Deformity, No Tenderness Cardiovascular: Rhythm Regular, No Murmur Respiratory: No Rales, Rhonchi (scant, left greater than right ), Wheezing (scant, left greater than right ) Gastrointestinal/Abdominal: Soft, No Tenderness, No Distention, No Guarding, No Rebound Extremity: Normal ROM, Capillary Refill (less than 2 seconds ), No Other (leg edema ) Pulses: Left Dorsalis Pedis: Normal, Right Dorsalis Pedis: Normal Neurological/Psych: Oriented x3, Normal Speech, Normal Cognition ED Course And Treatment - Laboratory Results Result Diagrams: 10/14/18 00:11 10/14/18 00:11 Lab Results: Troponin I 0.0380 ng/mL (0.00-0.120) 10/14/18 00:11 NT-Pro-B Natriuret Pep 4400 pg/mL (0-900) H 10/14/18 00:11 Total Bilirubin 0.6 mg/dL (0.2-1.3) 10/14/18 00:11 AST 26 U/L (17-59) 10/14/18 00:11 ALT 19 U/L (21-72) L 10/14/18 00:11 Alkaline Phosphatase 64 U/L (38-126) 10/14/18 00:11 Total Protein 6.5 g/dL (6.3-8.3) 10/14/18 00:11 Albumin 4.2 g/dL (3.5-5.0) 10/14/18 00:11 Globulin 2.3 gm/dL (2.2-3.9) 10/14/18 00:11 Albumin/Globulin Ratio 1.8 (1.0-2.1) 10/14/18 00:11 Lab Interpretation: Normal (trop neg, BNP 4400) ECG: Interpreted By Me ECG Rhythm: Sinus Rhythm ECG Interpretation: Normal Rate From EC O2 Sat by Pulse Oximetry: 96 (on RA) Pulse Ox Interpretation: Normal - Radiology CXR: Interpreted by Me CXR Interpretation: Yes: No Acute Disease, Other (chronic lung dz, no pna/pnx/CHF) Progress Note: Bloodwork, CXR, and EKG ordered and reviewed. Reevaluation Time: 01:34 Reassessment Condition: Unchanged (remains asymptomatic.) - Physician Consult Information Outcome Of Conversation: 0130: d/w Dr. Moses- Medicine Registered Dental Assistant Rda- ok to d/c home. No acute issues for inpatient eval. consider typical malaise after HD session, now resolved Medical Decision Making Medical Decision Making: post- HD malaise, resolved Disposition Doctor Will See Patient In The: Office Counseled Patient/Family Regarding: Studies Performed, Diagnosis - Disposition Referrals: [facility] [Outside] [facility] [Outside] [facility] [Outside] Gogo Valentin [Staff Provider] - Disposition: HOME/ ROUTINE Disposition Time: 01:35 Condition: GOOD Additional Instructions: Evaluation today without acute findings Ok to contine normal Dialysis on //Sat Follow-up with Dr. Valentin as needed. Instructions: Fatigue Forms: [facility] (E[place]ian) - Clinical Impression Clinical Impression: Malaise and fatigue - Scribe Statement The provider has reviewed the documentation as recorded by the Scribe (Jessica Hawkins) Provider Attestation: All medical record entries made by the Scribe were at my direction and personally dictated by me. I have reviewed the chart and agree that the record accurately reflects my personal performance of the history, physical exam, medical decision making, and the department course for this patient. I have also personally directed, reviewed, and agree with the discharge instructions and disposition.
[2018-10-14 01:48] VITALS: BP 132/58; RESP 20; TEMP 98.5
[2018-10-14 01:54] VITALS: O2SAT 96
--- NOTE | 2018-10-14 10:52 | RAD ---
Date of service: 10/13/2018 PROCEDURE: CHEST RADIOGRAPH, 1 VIEW HISTORY: SOB COMPARISON: Comparison is made with 09/26/2018 FINDINGS: LUNGS: No evidence of new infiltrate or consolidation in the lungs. Mild pulmonary vascular congestion. PLEURA: No pneumothorax or pleural fluid seen. CARDIOVASCULAR: No aortic atherosclerotic calcification present. Left-sided hemodialysis catheter is seen in place. Right subclavian stent is again noted. OSSEOUS STRUCTURES: No significant abnormalities. VISUALIZED UPPER ABDOMEN: Normal. OTHER FINDINGS: None. IMPRESSION: No evidence of acute pulmonary disease or suspicious interval changes.
--- NOTE | 2018-10-15 21:55 | CARD ---
APPROVED REPORT Date of service: 10/14/2018 EKG Measurement Heart [id number] <Conclusion> Normal sinus rhythm Septal infarct, age undetermined Abnormal ECG
== END 2018-10-14 02:04 | disposition home or self-care (01) ==
LOC: C.ER 22:34
DX: R53.81 Other malaise (principal); R53.83 Other fatigue